=== PATIENT | male | born 1950 | race Caucasian/White ===

== ENCOUNTER 2017-07-12 10:04 | Outpatient (CLI) | payer MEDICARE, OTHER ==
[~2017-07-12] VITALS: Ht 180.3 cm; Wt 133.8 kg
[2017-07-12 10:19] VITALS: BP 160/83
[2017-07-12 10:57] LABS: BASOPHILS % (AUTO) 0 % (0-10); EOSINOPHILS # (AUTO) 0.2 10^3/uL (0.0-0.3); EOSINOPHILS % (AUTO) 2 % (0-10); HEMATOCRIT 38 % (40-54); HEMOGLOBIN 12.8 G/DL (13.3-17.7); LYMPHOCYTES # (AUTO) 8.5 X 10^3 (1.0-4.0); LYMPHOCYTES % (AUTO) 58 % (12-44); MEAN CORPUSCULAR HEMOGLOBIN 30 PG (25-34); MEAN CORPUSCULAR HGB CONC 34 G/DL (32-36); MEAN CORPUSCULAR VOLUME 89 FL (80-99); MEAN PLATELET VOLUME 10.9 FL (7.4-10.4); MONOCYTES # (AUTO) 0.9 X 10^3 (0.0-1.0); MONOCYTES % (AUTO) 6 % (0-12); NEUTROPHILS % (AUTO) 34 % (42-75); PLATELET COUNT 205 10^3/uL (130-400); RED BLOOD COUNT 4.26 10^6/uL (4.35-5.85); RED CELL DISTRIBUTION WIDTH 13.2 % (10.0-14.5); WHITE BLOOD COUNT 14.6 10^3/uL (4.3-11.0)
[2017-07-12 11:08] LABS: INR 0.9 (0.8-1.4); PROTHROMBIN TIME PATIENT 12.1 SEC (12.2-14.7)
[2017-07-12 11:16] LABS: ALANINE AMINOTRANSFERASE 19 U/L (0-55); ALBUMIN 4.2 GM/DL (3.2-4.5); ALKALINE PHOSPHATASE 89 U/L (40-136); BILIRUBIN,TOTAL 0.4 MG/DL (0.1-1.0); BUN/CREATININE RATIO 26; CALCIUM 9.2 MG/DL (8.5-10.1); CARBON DIOXIDE 24 MMOL/L (21-32); CHLORIDE 106 MMOL/L (98-107); CREATININE SERUM 0.89 MG/DL (0.60-1.30); GFR ESTIMATED > 60; GLUCOSE 114 MG/DL (70-105); POTASSIUM 4.3 MMOL/L (3.6-5.0); SODIUM 139 MMOL/L (135-145); TOTAL PROTEIN 6.5 GM/DL (6.4-8.2)
[2017-07-12 11:17] LABS: BILIRUBIN,URINE NEGATIVE (NEGATIVE); CLARITY,URINE CLEAR; COLOR,URINE YELLOW; GLUCOSE, URINE (UA) 1+ (NEGATIVE); KETONES,URINE NEGATIVE (NEGATIVE); LEUKOCYTE ESTERASE ,URINE NEGATIVE (NEGATIVE); NITRITE,URINE NEGATIVE (NEGATIVE); PH,URINE 6 (5-9); PROTEIN,URINE 2+ (NEGATIVE); UROBILINOGEN,URINE NORMAL (NORMAL)
[2017-07-12] MEDS ORDERED: METO50TA15 PO (11:25)
[2017-07-12] MEDS ORDERED: GLIM4TAB PO (11:25)
[2017-07-12] MEDS ORDERED: LISI1TAB8 PO (11:25)
[2017-07-12] MEDS ORDERED: AMLO5TAB2 PO (11:25)
[2017-07-12] MEDS ORDERED: INSU100I14 SQ (11:25)
[2017-07-12] MEDS ORDERED: INSU100I29 SQ (11:25)
[2017-07-12] MEDS ORDERED: ASPI-586 PO (11:25)
[2017-07-12] MEDS ORDERED: KRIL1CAP22 PO (11:25)
[2017-07-12] MEDS ORDERED: METF10002 PO (11:25)
[2017-07-12] MEDS ORDERED: LOVA20TA2 PO (11:25)
[2017-07-12 11:34] LABS: BACTERIA,URINE NEGATIVE /HPF; SQUAMOUS EPITHELIAL CELL,UR 0-2 /HPF
[2017-07-12 11:39] LABS: ERYTHROCYTE SEDIMENTATION RATE 10 MM/HR (0-30)
[2017-07-12 11:49] LABS: BAND NEUTROPHILS 3 %; BASOPHILS % (MANUAL) 0 %; EOSINOPHILS % (MANUAL) 1 %; LYMPHOCYTES % (MANUAL) 50 %; MONOCYTES % (MANUAL) 7 %; NEUTROPHILS % (MANUAL) 36 %; REACTIVE LYMPHOCYTES 3 %
[2017-07-12 11:50] LABS: RBC MORPH NORMAL
--- NOTE | 2017-07-12 12:41 | Diagnostic Imaging Report ---
EXAMINATION: PA and lateral chest obtained at 1123. INDICATION: Preop left knee arthroplasty. There are no prior studies available for comparison. Heart size is within normal limits. The lungs are clear. There is no evidence for failure, pneumonia or for a pleural effusion. The mediastinum is not widened. The osseous structures are intact. IMPRESSION: There is no evidence for active disease. Dictated by: Dictated on workstation # [id number]
== END 2017-07-12 11:10 | disposition home or self-care (01) ==
LOC: PREOP 10:04
PROVIDERS: ATTEND Orthopaedic Surgery
DX: Z01.810 Encounter for preprocedural cardiovascular examination (principal); Z01.811 Encounter for preprocedural respiratory examination; Z01.812 Encounter for preprocedural laboratory examination; Z11.2 Encounter for screening for other bacterial diseases; M17.12 Unilateral primary osteoarthritis, left knee; R53.83 Other fatigue
CPT/HCPCS: 36415; 71046; 80053; 81000; 85007; 85027; 85610; 85652; 86850; 86900; 86901; 87081; 93005

== ENCOUNTER 2017-07-19 06:00 | Inpatient (IN) | payer MEDICARE, OTHER ==
--- NOTE | 2017-07-10 16:55 | HISTORY AND PHYSICAL ---
DATE OF SERVICE: This will be for left total knee arthroplasty on 07/19/17. HISTORY: The patient is a 67-year-old gentleman with complaints of left knee pain and loss of function. Reports catching, locking and functional impairment in the knee. He reports this has been progressive in nature. He tried rest activity modifications and anti-inflammatories without relief. Due to functional impairment and failure to improve with conservative measures, the patient has elected to proceed with surgical intervention. REVIEW OF SYSTEMS: No chest pain, no shortness of breath. No dysuria. PAST MEDICAL HISTORY: Diabetes type 2, hyperlipidemia, hypertension. PAST SURGICAL HISTORY: Cataract excision, tonsillectomy. FAMILY HISTORY: Noncontributory. PRIMARY CARE PROVIDER: [facility]. MEDICATIONS: Aspirin, fish oil, Amaryl, lisinopril, NovoLog, metformin, lovastatin, amlodipine, metoprolol. ALLERGIES: Denies allergies. SOCIAL HISTORY: Denies tobacco use. Drinks alcohol rarely. RADIOGRAPHS: Reveal varus alignment with complete loss of medial and patellofemoral joint spaces. PHYSICAL EXAMINATION: GENERAL: The patient is a well-developed, well-nourished, in no acute distress. HEENT: Normocephalic, atraumatic. Pupils are equal, round and reactive to light. Oropharynx is clear. NECK: Supple, no lymphadenopathy. LUNGS: Clear to auscultation bilaterally. HEART: Regular rate and rhythm. ABDOMEN: Soft, nontender, nondistended. EXTREMITIES: The left knee demonstrates varus alignment. Range of motion 95, he has 1+ valgus. No varus laxity. Negative anterior and posterior drawer. 2+ pulses distally with brisk capillary refill. Sensation is intact throughout. No skin lesions are noted. He is tender along his medial femoral condyle. He has moderate effusion noted. IMPRESSION: Left knee severe osteoarthritis, unresponsive to conservative measures. PLAN: Left total knee arthroplasty. The risks, benefits, options, ramification and recovery have been discussed at length with the patient. He understands and wishes to proceed. See for inpatient admission on 07/19/17. The patient will require inpatient admission due to pain, instability, weakness and the need for pain management and physical therapy. Job ID: [id number] DocumentID: [id number] Dictated Date: 07/10/2017 15:51:11 Bar Captain Date: 07/10/2017 16:54:48 Dictated By: JARRETT CALLE MD
[~2017-07-19] VITALS: Ht 180.3 cm; Wt 133.8 kg
[~2017-07-19 06:00] MED LIST: AMLO5TAB2 PO; ASPI-586 PO; GLIM4TAB PO; INSU100I14 SQ; INSU100I29 SQ; KRIL1CAP22 PO; LISI1TAB8 PO; LOVA20TA2 PO; METF10002 PO; METO50TA15 PO
--- OUTSIDE RECORDS SUMMARY | 2017-07-19 06:14 | XMS REPORT ---
Author Author SHADIA BLAIR [facility] Address [address] [place] [address] Care Team Providers Care Senior Director Of Strategy Name Role Phone SHADIA BLAIR Unavailable PROBLEMS Type Condition ICD9-CM Code LQY69-CM Code Onset Dates Condition Status SNOMED Code Problem Type 2 diabetes mellitus with hyperglycemia E11.65 Active 201530200 Problem Diabetes type 2, controlled E11.9 Active 02208327 Assessment Diabetes type 2, controlled E11.9 Nov, Active 41461883 Problem 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 652173281 Problem Abrasion or friction burn of other, multiple, and unspecified sites, without mention of infection 919.0 Active 361799649 ALLERGIES Substance Reaction Event Type Date Status N.K.D.A. Unknown Non Drug Allergy Nov, Unknown SOCIAL HISTORY No smoking Hx information available PLAN OF CARE VITAL SIGNS Height 71 in 2015-11-20 Weight 286.8 lbs 2015-11-20 Heart Rate 80 bpm 2015-11-20 Respiratory Rate 20 2015-11-20 BMI 40.00 kg/m2 2015-11-20 Blood pressure systolic 164 mmHg 2015-11-20 Blood pressure diastolic 78 mmHg 2015-11-20 MEDICATIONS Medication Instructions Dosage Frequency Start Date End Date Duration Status Metformin HCl 1000 MG Orally Twice a day 1 tablet with meals 12h Dec, Active Fish Oil 1000 MG Orally Once a day 1 capsule 24h Active Aspirin 81 MG Orally Once a day 1 tablet 24h Active Amlodipine Besylate 5 mg Orally Once a day 1 tablet 24h July, Active Lovastatin 20MG 1 tablet 24h Active Lisinopril-Hydrochlorothiazide 20-12.5 TAKE TWO TABLETS BY MOUTH ONCE DAILY 90 Active Levemir FlexTouch 100 UNIT/ML Subcutaneous 2 times a day 60 units 12h 25 May, 2015 Active Metoprolol Tartrate 50MG TAKE ONE TABLET BY MOUTH TWICE DAILY WITH MEALS 30 Active Amaryl 4 MG Orally 2 times per day 1 tablet 90 Active RESULTS Name Result Date Reference Range A1C (IN HOUSE) 2015-11-20 A1C IN HOUSE 9.2 4.3 - 5.6 % Previous A1c 9.0 Lot [id number] Exp date 09/2017 PROCEDURES Procedure Date Ordered Related Diagnosis Body Site GLYCATED HEMOGLOBIN TEST Nov 20, 2015 Office Visit, Est Pt., Level 3 Nov 20, 2015 IMMUNIZATIONS No Known Immunizations
--- OUTSIDE RECORDS SUMMARY | 2017-07-19 06:14 | XMS REPORT ---
Author Author SHADIA BLAIR Organization [facility] [place] [facility] Address [address] [place] [address] Care Team Providers Care Hydrotherapist Name Role Phone SHADIA BLAIR Unavailable PROBLEMS Type Condition ICD9-CM Code DNU14-BR Code Onset Dates Condition Status SNOMED Code Problem Type 2 diabetes mellitus without complications E11.9 Active 547031433 Problem Controlled type 2 diabetes mellitus without complication, without long -term current use of insulin E11.9 Active 763730718 Problem Diabetes type 2, controlled E11.9 Active 76734328 Problem 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 092677471 Problem retirement current use of insulin Z79.4 Active 917804967 Problem Type 2 diabetes mellitus with hyperglycemia E11.65 Active 788527996 ALLERGIES No Information ENCOUNTERS Encounter Location Date Diagnosis [place] [address] [address] Jun, [place] [address] [address] May, [place] [address] [address] Feb, Other viral agents as the cause of diseases classified elsewhere B97.89 and Acute upper respiratory infection, unspecified J06.9 [facility] [place] [facility] [address] [place] [id number] [place] [address] Feb, [place] [address] [address] Feb, Type 2 diabetes mellitus without complications E11.9 and retirement current use of insulin Z79.4 [place] [address] [address] Dec, [place] [address] [address] [place] [address] Dec, [facility] [place] [facility] [address] [address] Nov, Type 2 diabetes mellitus without complications E11.9 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 [facility] [place] [facility] [address] [address] Nov, [facility] [place] [facility] [address] [place] [id number] [place] [address]- 69[address] Nov, Controlled type 2 diabetes mellitus without complication, without long-term current use of insulin E11.9 [facility] [place] [facility] [address] [place] [id number] [place] [address]- 8037 Nov, Controlled type 2 diabetes mellitus without complication, without long-term current use of insulin E11.9 [facility] [place] [facility] [address] [address] Nov, Type 2 diabetes mellitus with other circulatory complications E11.59 [facility] [place] [facility] [address] [address] Oct, Type 2 diabetes mellitus with hyperglycemia E11.65 [facility] [place] [facility] [address] [address] Oct, [facility] [place] [facility] [address] [address] Oct, [facility] [place] [facility] [address] [address] Oct, Type 2 diabetes mellitus without complications E11.9 [facility] [place] [facility] [address] [address] 58[address] Sep, Type 2 diabetes mellitus with hyperglycemia E11.65 [facility] [place] [facility] [address] [address] 12[address] Sep, Type 2 diabetes mellitus with other circulatory complications E11.59 [facility] [place] [facility] [address] [address] Aug, [facility] [place] [facility] [address] [address] July, Controlled type 2 diabetes mellitus without complication, without long-term current use of insulin E11.9 [facility] [place] [facility] [address] [address] 74[address] May, [facility] [place] [facility] [address] [place] [id number] [place] [address]- 7572 Feb, Controlled type 2 diabetes mellitus without complication, without long-term current use of insulin E11.9 [place] [address] [place] [id number] [place] [address]- 6531 Jan, Controlled type 2 diabetes mellitus without complication, without long-term current use of insulin E11.9 [place] [id number] [place] [address]- 1269 Jan, Type 2 diabetes mellitus with hyperglycemia E11.65 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 [place] [id number] [place] [address]- 1004 Nov, Diabetes type 2, controlled E11.9 [place] [address] [place] [id number] [place] [address]- 5607 Aug, Type 2 diabetes mellitus with other circulatory complications E11.59 and Hypertension, essential I10 [place] [id number] [place] [address]- 3145 July, Type 2 diabetes mellitus with hyperglycemia E11.65 and Hypertension, benign I10 [place] [id number] [place] [address]- 9157 May, Type 2 diabetes mellitus with other circulatory complications E11.59 [place] [id number] [place] [address]- 97[address] Apr, Diabetes type 2, controlled E11.9 [facility] [place] [facility] [address] [address] 5[address] Jan, Type 2 diabetes mellitus with other circulatory complications E11.59 [facility] [place] [facility] [address] Dec, Type 2 diabetes mellitus with other circulatory complications E11.59 [facility] [place] [facility] [address] [address] 75[address] Aug, Diabetes 250.00 [facility] [place] [facility] [address] [place] [id number] [place] [address]- 3[address] July, Diabetes 250.00 [facility] [place] [facility] [address] [facility] [id number] [place] [address]- 5667 Jun, [facility] [place] [facility] [address] [place] [id number] [place] [address] 256094- 4253 Jun, [facility] [place] [facility] [address] [place] [id number] [place] [address] 677086- 3881 Jun, [facility] [place] [facility] [address] [place] [id number] [place] [address]39[address]- 3894 Jun, [facility] [place] [facility] [address] [address]- 42[address] Jun, [facility] [place] [facility] [address] [address]- 8259 May, [facility] [place] [facility] [address] [address]- 0349 May, [facility] [place] [facility] [address] [address]- 2599 Apr, [facility] [place] [facility] [address] [address] Apr, [facility] [place] [facility] [address] [address]- 0[address] Mar, [facility] [place] [facility] [address] [address] [address] Mar, [facility] [place] [facility] [id number] [place] [address]- 5393 Feb, [facility] [place] [facility] [address] [id number] [place] [address]- 9046 Feb, [facility] [place] [facility] [address] [id number] [place] [address]- 4613 Feb, [facility] [place] [facility] [address] [id number] [place] [address]- 7542 Feb, [facility] [place] [facility] [address] [id number] [place] [address]- 4839 Feb, [facility] [place] [facility] [address] [id number] [place] [address]- 4256 Feb, [facility] [place] [facility] [address] [id number] [place] [address]- 8047 Dec, [facility] [place] [facility] [address] [id number] [place] [address]- 4882 Dec, [facility] [place] [facility] [address] [id number] [place] [address]- 0087 29 Nov, 2013 [facility] [place] [facility] [address] [id number] [place] [address]- 3823 29 Nov, 2013 [facility] [place] [facility] [address] [id number] [place] [address]- 3244 29 Nov, 2013 [facility] [place] [facility] [address] [id number] [place] [address]- 2874 29 Nov, 2013 [facility] [place] [facility] [address] [id number] [address]- 3418 17 Nov, 2013 [facility] [place] [facility] [address] [id number] [place] [address]- 0584 17 Nov, 2013 [facility] [place] [facility] [address] [id number] [place] [address]- 3813 12 Nov, 2013 [facility] [place] [facility] [address] [id number] [place] [address]- 7938 12 Nov, 2013 [facility] [place] [facility] [address] [id number] [place] [address]- 4485 Aug, [facility] [address] [id number] [place] [address]- 2305 Aug, [facility] [place] [facility] [address] [id number] [place] [address]- 9057 Aug, [facility] [address] [id number] [place] [address]- 0094 Aug, [facility] [place] [facility] [address] [id number] [place] [address]- 2450 July, [facility] [address] [id number] [place] [address]- 0672 July, [facility] [place] [facility] [address] [id number] [place] [address]- 5258 Jun, [facility] [place] [facility] [address] [id number] [place] [address]- 8642 Jun, [facility] [place] [facility] [address] [id number] [place] [address]- 6543 Jun, [facility] [place] [facility] [address] [id number] [place] [address]- 3588 Jun, [facility] [address] [id number] [place] [address]- 6805 May, [facility] [place] [facility] [address] [id number] [place] [address]- 1469 May, [facility] [place] [facility] [address] [id number] [place] [address]- 2642 Apr, [facility] [place] [facility] [address] [id number] [place] [address]- 4659 Apr, [facility] [place] [facility] [address] [id number] [place] [address]- 8704 Mar, [facility] [place] [facility] [address] [id number] [place] [address]- 8592 Mar, [facility] [place] [facility] [address] [id number] [place] [address]- 7537 Mar, [facility] [place] [facility] [address] [id number] [place] [address]- 5384 Mar, [facility] [place] [facility] [address] [id number] [place] [address]- 3014 Feb, [facility] [place] [facility] [address] [id number] [place] [address]- 8912 Feb, [facility] [place] [facility] [address] [id number] [place] [address]- 5177 Jan, [facility] [place] [facility] [address] [id number] [place] [address]- 2747 Jan, [facility] [place] [facility] [address] [id number] [place] [address]- 8669 Dec, [facility] [place] [facility] [address] [id number] [place] [address]- 5093 Dec, [facility] [place] [facility] [address] [id number] [place] [address]- 4693 Dec, [facility] [place] [facility] [address] [id number] [place] [address]- 3628 Dec, [facility] [place] [facility] [address] [id number] [place] [address]- 2750 Nov, [facility] [place] [facility] [address] [id number] [address]- 5147 Sep, [facility] [place] [facility] [address] [id number] [place] [address]- 8896 Sep, [facility] [place] [facility] [address] [id number] [place] [address]- 2786 Aug, [facility] [place] [facility] [address] [id number] [place] [address]- 4504 July, [facility] [place] [facility] [address] [id number] [place] [address]- 0069 24 Jun, 2012 [facility] [address] [id number] [place] [address]- 3000 May, [facility] [place] [facility] [address] [id number] [place] [address]- 8910 May, [facility] [place] [facility] [address] [id number] [place] [address]- 6973 May, [facility] [place] [facility] [address] [id number] [place] [address]- 2548 May, [facility] [place] [facility] [address] [id number] [place] [address], [place] [address]- 8568 May, [facility] [place] [facility] [address] [id number] [place] [address]- 0717 Feb, [facility] [address] [place] [address]- 8445 Feb, [facility] [place] [facility] [address] [id number] [place] [address]- 4431 Jan, [facility] [place] [facility] [address] [place] [id number] [place] [address]- 8892 Jan, [facility] [place] [facility] [address] [place] [id number] [place] [address]- 9796 Jan, [facility] [place] [facility] [address] [facility] [id number] [place] [address]- 4277 Jan, [facility] [place] [facility] [address] [facility] [id number] [address]- 6738 Jan, [facility] [place] [facility] [address] [id number] [place] [address]- 8491 Jan, [facility] [place] [facility] [address] [facility] [id number] [place] [address]- 1303 Dec, [facility] [place] [facility] [address] [facility] [id number] [address]66 Dec, [facility] [place] [facility] [address] [id number] [place] [address]- 8731 Dec, [facility] [place] [facility] [address] [id number] [place] [address]- 7097 Dec, [facility] [place] [facility] [address] [id number] [place] [address]- 9036 Dec, [facility] [place] [facility] [address] [id number] [place] [address]- 3216 26 Nov, 2011 [facility] [place] [facility] [address] [id number] [place] [address]- 4433 Nov, [facility] [place] [facility] [address] [id number] [place] [address]- 1834 Nov, [facility] [place] [facility] [address] [id number] [place] [address]- 9226 Sep, [facility] [place] [facility] [address] [id number] [place] [address]- 3389 Aug, [facility] [place] [facility] [address] [id number] [place] [address]- 1154 Aug, [facility] [place] [facility] [address] [id number] [place] [address]- 2190 May, [facility] [place] [facility] [address] [id number] [place] [address]- 3853 Apr, [facility] [place] [facility] [address] [id number] [place] [address]- 9684 Mar, [facility] [place] [facility] [address] [id number] [place] [address]- 6770 Mar, [facility] [place] [facility] [address] [id number] [place] [address]- 0575 Dec, [facility] [place] [facility] [address] [id number] [place] [address]- 8409 Sep, [facility] [place] [facility] [address] [id number] [place] [address]- 1495 2010 [facility] [place] [facility] [address] [facility] [id number] [address]- 1310 2010 [facility] [place] [facility] [address] [facility] [id number]- 9178 11 Jan, 2010 [facility] [place] [facility] [address] [address] 08 Jan, 2010 [facility] [place] [facility] [address] [facility] [id number]- 1427 10 Nov, 2009 [facility] [place] [facility] [address] [facility] [id number] [address]- 4148 15 Feb, 2009 [facility] [place] [facility] [id number] [place] [address] 80[address]- 7311 15 Feb, 2009 [facility] [place] [facility] [address] [address]- 2226 16 Jan, 2009 [facility] [place] [facility] [address] [address]- 8640 16 Jan, 2009 [facility] [place] [facility] [address] [address]- 7099 13 Dec, 2008 [facility] [place] [facility] [address] [address]- 6813 13 Dec, 2008 [facility] [place] [facility] [address] [address]- 1618 15 Nov, 2008 [facility] [place] [facility] [address] [place] [id number] [address]- 2321 17 Oct, 2008 [facility] [place] [facility] [address] [address]- 1988 Sep, [facility] [place] [facility] [address] [address]- [address] Aug, IMMUNIZATIONS No Known Immunizations SOCIAL HISTORY Never Assessed REASON FOR VISIT PALS PLAN OF CARE VITAL SIGNS MEDICATIONS Medication Instructions Dosage Frequency Start Date End Date Duration Status Tresiba FlexTouch 200 UNIT/ML Subcutaneous Once a day inject 75 units 24h Jan, 90 days Active Pen [place] 32G X 4 MM subcutaneously 4 times a day as directed with insulin 6h Sep, 90 days Active NovoLog Flexpen 100 UNIT/ML Subcutaneous 3 times a day with meals inject 25 units Sep, 90 days Active RESULTS No Results PROCEDURES No Known procedures INSTRUCTIONS MEDICATIONS ADMINISTERED No Known Medications MEDICAL (GENERAL) HISTORY Type Description Date Medical History hypertension Medical History type II diabetes Medical History hyperlipidemia Medical History chronic pain-knees Surgical History tonsillectomy 1957
--- OUTSIDE RECORDS SUMMARY | 2017-07-19 06:14 | XMS REPORT ---
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 738114430 Problem group home current use of insulin Z79.4 Active 591972565 Problem Type 2 diabetes mellitus with hyperglycemia E11.65 Active [id number] ALLERGIES No Information ENCOUNTERS Encounter Location Date Diagnosis [place] [address] [address] Jun, [place] [address] [address]- [address] May, [place] [address] [address] Feb, Other viral agents as the cause of diseases classified elsewhere B97.89 and Acute upper respiratory infection, unspecified J06.9 [facility] [address] [place] [id number] [place] [address]- 9212 Feb, [place] [address] [address]- [address] Feb, Type 2 diabetes mellitus without complications E11.9 and group home current use of insulin Z79.4 [place] [address] [address]- [address] Dec, [place] [address] [place] [address] Dec, [facility] [address] [address] Nov, Type 2 diabetes mellitus without complications E11.9 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 [facility] [address] [address] Nov, [facility] [address] [place] [id number] [place] [address] 85654- 7524 Nov, Controlled type 2 diabetes mellitus without complication, without long-term current use of insulin E11.9 [facility] [address] [place] [id number] [place] [address]68- 7638 Nov, Controlled type 2 diabetes mellitus without complication, without long-term current use of insulin E11.9 [facility] [address] [address] 7060 Nov, Type 2 diabetes mellitus with other circulatory complications E11.59 [facility] [address], [place] [address] 87[address] Oct, Type 2 diabetes mellitus with hyperglycemia E11.65 [facility] [address], [place] [address] 30[address] Oct, [facility] [address], [place] [address] 5[address] Oct, [facility] [address] [address] 1051 Oct, Type 2 diabetes mellitus without complications E11.9 [facility] [address] [address] 25[address] Sep, Type 2 diabetes mellitus with hyperglycemia E11.65 [facility] [address] [address] 4[address] Sep, Type 2 diabetes mellitus with other circulatory complications E11.59 [facility] [address], [place] [address] Aug, [facility] [address] [address] July, Controlled type 2 diabetes mellitus without complication, without long-term current use of insulin E11.9 [facility] [address], [place] [address]- 7698 May, [facility] [address] [place] [id number] [place] [address] 87848- 8196 Feb, Controlled type 2 diabetes mellitus without complication, without long-term current use of insulin E11.9 [place] [address] [place] [id number] [place] [address] 13569- 9136 Jan, Controlled type 2 diabetes mellitus without complication, without long-term current use of insulin E11.9 [place] [id number] [place] [address] 07266- 7509 Jan, Type 2 diabetes mellitus with hyperglycemia E11.65 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 [place] [id number] [place] [address] 95914- 8120 Nov, Diabetes type 2, controlled E11.9 [place] [address] [place] [id number] [place] [address] 22189- 6742 Aug, Type 2 diabetes mellitus with other circulatory complications E11.59 and Hypertension, essential I10 [place] [id number] [place] [address] 55974- 4854 July, Type 2 diabetes mellitus with hyperglycemia E11.65 and Hypertension, benign I10 [place] [id number] [place] [address] 04060- 4670 May, Type 2 diabetes mellitus with other circulatory complications E11.59 [place] [id number] [place] [address] 88046- 2035 Apr, Diabetes type 2, controlled E11.9 [facility] [address], [place] [address]- 17[address] Jan, Type 2 diabetes mellitus with other circulatory complications E11.59 [facility] [address] [address] Dec, Type 2 diabetes mellitus with other circulatory complications E11.59 [facility] [address], [place] [address]- 4046 Aug, Diabetes 250.00 [facility] [address] [place] [id number] [place] [address] 64086- 0366 July, Diabetes 250.00 [facility] [address] [facility] [id number] [place] [address] 85688- 7975 Jun, [facility] [address] [place] [id number] [place] [address] 072695- 5184 Jun, [facility] [address] [place] [id number] [place] [address] 539278- 6311 Jun, [facility] [address] [place] [id number] [place] [address] 02365- 0598 Jun, [facility] [address], [place] [address]- 8675 Jun, [facility] [address], [place] [address]- 2504 May, [facility] [address] [address]- 7050 May, [facility] [address], [place] [address]- 6756 Apr, [facility] [address] [address] Apr, [facility] [address], [place] [address]- 2705 Mar, [facility] [address] Mar, [facility] [address] [place] [address] 99264- 1109 Feb, [facility] [place] [facility] [address] [id number] [place] [address]- 7100 Feb, [facility] [place] [facility] [address] [id number] [place] [address]- 2522 Feb, [facility] [place] [facility] [address] [id number] [place] [address]- 1808 Feb, [facility] [place] [facility] [address] [id number] [place] [address]- 8115 Feb, [facility] [place] [facility] [address] [id number] [place] [address]- 5180 Feb, [facility] [place] [facility] [address] [id number] [place] [address]- 0309 Dec, [facility] [place] [facility] [address] [id number] [place] [address]- 5492 Dec, [facility] [place] [facility] [address] [id number] [place] [address]- 5061 29 Nov, 2013 [facility] [place] [facility] [address] [id number] [place] [address]- 4089 29 Nov, 2013 [facility] [place] [facility] [address] [id number] [place] [address]- 2241 29 Nov, 2013 [facility] [place] [facility] [address] [id number] [place] [address]- 5254 29 Nov, 2013 [facility] [place] [facility] [address] [id number], [place] [address]- 7921 17 Nov, 2013 [facility] [place] [facility] [address] [id number] [place] [address]- 6025 17 Nov, 2013 [facility] [place] [facility] [address] [id number] [place] [address]- 6016 12 Nov, 2013 [facility] [place] [facility] [address] [id number] [place] [address]- 7213 12 Nov, 2013 [facility] [place] [facility] [address] [id number] [place] [address]- 9226 Aug, [facility] [address] [id number] [place] [address]- 2315 Aug, [facility] [place] [facility] [address] [id number] [place] [address]- 4967 Aug, [facility] [address] [id number] [place] [address]- 0615 Aug, [facility] [place] [facility] [address] [id number] [place] [address]- 5036 July, [facility] [address] [id number] [place] [address]- 8917 July, [facility] [place] [facility] [address] [id number] [place] [address]- 7641 Jun, [facility] [place] [facility] [address] [id number] [place] [address]- 4024 Jun, [facility] [place] [facility] [address] [id number] [place] [address]- 2671 Jun, [facility] [place] [facility] [address] [id number] [place] [address]- 4230 Jun, [facility] [address] [id number] [place] [address]- 0524 May, [facility] [place] [facility] [address] [id number] [place] [address]- 0734 May, [facility] [place] [facility] [address] [id number] [place] [address]- 6489 Apr, [facility] [place] [facility] [address] [id number] [place] [address]- 8867 Apr, [facility] [place] [facility] [address] [id number] [place] [address]- 7113 Mar, [facility] [place] [facility] [address] [id number] [place] [address]- 8107 Mar, [facility] [place] [facility] [address] [id number] [place] [address]- 2007 Mar, [facility] [place] [facility] [address] [id number] [place] [address]- 5331 Mar, [facility] [place] [facility] [address] [id number] [place] [address]- 8708 Feb, [facility] [place] [facility] [address] [id number] [place] [address]- 1046 Feb, [facility] [place] [facility] [address] [id number] [place] [address]- 7861 Jan, [facility] [place] [facility] [address] [id number] [place] [address]- 8134 Jan, [facility] [place] [facility] [address] [id number] [place] [address]- 5684 Dec, [facility] [place] [facility] [address] [id number] [place] [address]- 1416 Dec, [facility] [place] [facility] [address] [id number] [place] [address]- 0745 Dec, [facility] [place] [facility] [address] [id number] [place] [address]- 3902 Dec, [facility] [place] [facility] [address] [id number] [place] [address]- 5621 Nov, [facility] [place] [facility] [address] [id number], [place] [address]- 3862 Sep, [facility] [place] [facility] [address] [id number] [place] [address]- 6364 Sep, [facility] [place] [facility] [address] [id number] [place] [address]- 3626 Aug, [facility] [place] [facility] [address] [id number] [place] [address]- 7575 July, [facility] [place] [facility] [address] [id number] [place] [address]- 2840 24 Jun, 2012 [facility] [address] [id number] [place] [address]- 9227 May, [facility] [place] [facility] [address] [id number] [place] [address]- 9156 May, [facility] [place] [facility] [address] [id number] [place] [address]- 7563 May, [facility] [place] [facility] [address] [id number] [place] [address]- 1187 May, [facility] [place] [facility] [id number] [place] [address], [place] [address]- 7619 May, [facility] [place] [facility] [address] [id number] [place] [address]- 7632 Feb, [facility] [address] [place] [address]- 1634 Feb, [facility] [place] [facility] [address] [id number] [place] [address]- 0268 Jan, [facility] [place] [facility] [address] [place] [id number] [place] [address]- 7830 Jan, [facility] [place] [facility] [address] [place] [id number] [place] [address]- 1588 Jan, [facility] [place] [facility] [address] [facility] [id number] [place] [address]- 1850 Jan, [facility] [place] [facility] [address] [facility] [id number], [place] [address]- 6594 Jan, [facility] [place] [facility] [address] [id number] [place] [address]- 4141 Jan, [facility] [place] [facility] [address] [facility] [id number] [place] [address]- 5006 Dec, [facility] [place] [facility] [address] [facility] [id number] 6228 Dec, [facility] [place] [facility] [address] [id number] [place] [address]- 5604 Dec, [facility] [place] [facility] [address] [id number] [place] [address]- 0650 Dec, [facility] [place] [facility] [address] [id number] [place] [address]- 1366 Dec, [facility] [place] [facility] [address] [id number] [place] [address]- 6357 26 Nov, 2011 [facility] [place] [facility] [address] [id number] [place] [address]- 0308 Nov, [facility] [place] [facility] [address] [id number] [place] [address]- 6179 Nov, [facility] [place] [facility] [address] [id number] [place] [address]- 8662 Sep, [facility] [place] [facility] [address] [id number] [place] [address]- 6919 Aug, [facility] [place] [facility] [address] [id number] [place] [address]- 8554 Aug, [facility] [place] [facility] [address] [id number] [place] [address]- 0944 May, [facility] [place] [facility] [address] [id number] [place] [address]- 6214 Apr, [facility] [place] [facility] [address] [id number] [place] [address]- 7076 Mar, [facility] [place] [facility] [address] [id number] [place] [address]- 1407 Mar, [facility] [place] [facility] [address] [id number] [place] [address]- 3658 Dec, [facility] [place] [facility] [address] [id number] [place] [address]- 7556 Sep, [facility] [place] [facility] [address] [id number] [place] [address]- 9195 2010 [facility] [address] [facility] [id number], [place] [address]- 0581 2010 [facility] [address] [facility] [id number] 5616 11 Jan, 2010 [facility] [address] [address] 08 Jan, 2010 [facility] [address] [facility] [id number] 8951 10 Nov, 2009 [facility] [address] [facility] [id number], [place] [address]- 6216 15 Feb, 2009 [facility] [address], [place] [address]- 0209 15 Feb, 2009 [facility] [address], [place] [address]- 0413 16 Jan, 2009 [facility] [address], [place] [address]- 3573 16 Jan, 2009 [facility] [address], [place] [address]- 0719 13 Dec, 2008 [facility] [address], [place] [address]- 1872 13 Dec, 2008 [facility] [address], [place] [address]- 7832 15 Nov, 2008 [facility] [address] [place] [id number], [place] [address]- 7481 17 Oct, 2008 [facility] [address] [address] Sep, [facility] [address]- 6903 Aug, IMMUNIZATIONS No Known Immunizations SOCIAL HISTORY Never Assessed REASON FOR VISIT Sample Request PLAN OF CARE VITAL SIGNS MEDICATIONS Medication Instructions Dosage Frequency Start Date End Date Duration Status Tresiba FlexTouch 200 UNIT/ML Subcutaneous Once a day inject 75 units 24h Jan, 30 days Active NovoLog Flexpen 100 UNIT/ML Subcutaneous 3 times a day with meals inject 25 units Sep, 30 days Active RESULTS No Results PROCEDURES No Known procedures INSTRUCTIONS MEDICATIONS ADMINISTERED No Known Medications MEDICAL (GENERAL) HISTORY Type Description Date Medical History hypertension Medical History type II diabetes Medical History hyperlipidemia Medical History chronic pain-knees Surgical History tonsillectomy 1957
--- OUTSIDE RECORDS SUMMARY | 2017-07-19 06:15 | XMS REPORT ---
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 239893039 Problem Other chronic pain G89.29 Active 42805736 Problem Type 2 diabetes mellitus without complications E11.9 Active 901192231 Problem Type 2 diabetes mellitus with hyperglycemia E11.65 Active 146422223 Problem Diabetes type 2, controlled E11.9 Active 87720493 Problem Controlled type 2 diabetes mellitus without complication, without long -term current use of insulin E11.9 Active 511222325 Problem [facility] current use of insulin Z79.4 Active [id number] ALLERGIES No Known Allergies ENCOUNTERS Encounter Location Date Diagnosis [place] [address] [address] Jun, Diabetes type 2, controlled E11.9 ; Other chronic pain G89.29 ; Pain in left knee M25.562 and Pain in right knee M25.561 [place] [address] [place] [address]403- 6358 May, [place] [address] [place] [id number] [place] [address]78- 4684 Feb, Other viral agents as the cause of diseases classified elsewhere B97.89 and Acute upper respiratory infection, unspecified J06.9 [place] [address] [place] [id number] [place] [address] 42787- 9510 Feb, [place] [address] [place] [id number] [place] [address] 07264- 4867 Feb, 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 2 diabetes mellitus 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 complications E11.9 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 [facility] [address] [address] Dec, [facility] [address] [place] [id number] [place] [address] 26074- 3916 Dec, [facility] [address] [place] [address] 82724- 8622 Nov, Type 2 diabetes mellitus without complications E11.9 and [facility] current use of insulin Z79.4 [facility] [address] [place] [address] 23576- 7714 Nov, [facility] [address] [place] [id number] [place] [address] 89717- 9960 Nov, Controlled type 2 diabetes mellitus without complication, without long-term current use of insulin E11.9 [facility] [address] [place] [address] 53358- 6712 Nov, Controlled type 2 diabetes mellitus without complication, without long-term current use of insulin E11.9 [facility] [address] [place] [address] 49802- 1868 Nov, Type 2 diabetes mellitus with other circulatory complications E11.59 [facility] [address], [place] [address] 3940 Oct, Type 2 diabetes mellitus with hyperglycemia E11.65 [facility] [address], [place] [address] 8[address] Oct, [facility] [address] [address] 5783 Oct, [facility] [address] [place] [address] 67180- 2202 Oct, Type 2 diabetes mellitus without complications E11.9 [facility] [address], [place] [address] 05[address] Sep, Type 2 diabetes mellitus with hyperglycemia E11.65 [facility] [address] [place] [address] 32004- 3039 Sep, Type 2 diabetes mellitus with other circulatory complications E11.59 [place] [address] [place] [id number] [place] [address] 84168- 5733 Aug, [place] [address] [place] [id number] [place] [address] 24843- 5138 July, Controlled type 2 diabetes mellitus without complication, without long-term current use of insulin E11.9 [place] [address] [place] [id number] [place] [address] 09142- 7879 May, [place] [address] [place] [id number] [place] [address] 64571- 0415 Feb, Controlled type 2 diabetes mellitus without complication, without long-term current use of insulin E11.9 [place] [address] [place] [id number] [place] [address] 11920- 8151 Jan, Controlled type 2 diabetes mellitus without complication, without long-term current use of insulin E11.9 [place] [address] [place] [address] 13563- 7978 Jan, Type 2 diabetes mellitus with hyperglycemia E11.65 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 [place] [address] [place] [address] 65168- 5197 Nov, Diabetes type 2, controlled E11.9 [place] [address] [place] [address] 20732- 6798 Aug, Type 2 diabetes mellitus with other circulatory complications E11.59 and Hypertension, essential I10 [place] [address] [place] [address] 56616- 0477 July, Type 2 diabetes mellitus with hyperglycemia E11.65 and Hypertension, benign I10 [place] [address] [place] [address] 06161- 3907 May, Type 2 diabetes mellitus with other circulatory complications E11.59 [place] [address] [place] [id number] [place] [address] 75724- 6216 Apr, Diabetes type 2, controlled E11.9 [facility] [address], [place] [address] 7920 Jan, Type 2 diabetes mellitus with other circulatory complications E11.59 [facility] [address], [place] [address]- 3186 Dec, Type 2 diabetes mellitus with other circulatory complications E11.59 [facility] [address] [place] [id number] [place] [address] 32350- 5691 Aug, Diabetes 250.00 [facility] [address] [place] [address] 70902- 5102 July, Diabetes 250.00 [facility] [address] [place] [id number] [place] [address] 79567- 1226 Jun, [facility] [address] [place] [id number] [place] [address] 84843- 8831 Jun, [facility] [address] [place] [id number] [address] 4028 Jun, [facility] [address] [place] [address] 09773- 1564 Jun, [facility] [address], [place] [address]- 7849 Jun, [facility] [address] [place] [address]- 2433 May, [facility] [address] [place] [address]- 5592 May, [facility] [address], [place] [address]- 6353 Apr, [facility] [address] [place] [address]- 6676 Apr, [facility] [address], [place] [address]- 9386 Mar, [facility] [place] [facility] [address] [id number] [place] [address]- 3729 16 Mar, 2014 [facility] [place] [facility] [address] [id number] [place] [address]- 0329 29 Feb, 2014 [facility] [place] [facility] [address] [id number] [place] [address]- 6506 Feb, [facility] [place] [facility] [address] [id number] [place] [address]- 3058 Feb, [facility] [place] [facility] [address] [id number] [place] [address]- 1786 Feb, [facility] [place] [facility] [address] [id number] [place] [address]- 9111 15 Feb, 2014 [facility] [place] [facility] [address] [id number] [place] [address]- 5021 Feb, [facility] [place] [facility] [address] [id number] [place] [address]- 3321 Dec, [facility] [place] [facility] [address] [id number] [place] [address]- 0284 13 Dec, 2013 [facility] [place] [facility] [address] [id number] [place] [address]- 1798 29 Nov, 2013 [facility] [place] [facility] [address] [id number] [place] [address]- 3265 29 Nov, 2013 [facility] [place] [facility] [address] [id number] [place] [address]- 2542 29 Sep, 2013 [facility] [place] [facility] [address] [id number] [place] [address] 2544 29 Sep, 2013 [facility] [place] [facility] [address] [id number] [place] [address] 2546 17 Sep, 2013 [facility] [place] [facility] [address] [id number] [place] [address]- 2546 17 Sep, 2013 [facility] [place] [facility] [address] [id number] [place] [address]- 1540 Nov, [facility] [place] [facility] [address] [id number] [place] [address]- 1927 Nov, [facility] [place] [facility] [address] [id number] [place] [address]- 2857 Aug, [facility] [place] [facility] [address] [id number] [place] [address]- 3569 Aug, [facility] [place] [facility] [address] [id number] [place] [address]- 4824 Aug, [facility] [place] [facility] [address] [id number] [place] [address]- 8882 Aug, [facility] [place] [facility] [address] [id number] [place] [address]- 3890 July, [facility] [place] [facility] [address] [id number] [place] [address]- 4914 July, [facility] [place] [facility] [address] [id number] [place] [address]- 3654 Jun, [facility] [place] [facility] [address] [id number] [place] [address]- 5581 Jun, [facility] [place] [facility] [address] [id number] [place] [address]- 5363 Jun, [facility] [place] [facility] [address] [id number], [place] [address]- 9907 Jun, [facility] [place] [facility] [address] [id number], [place] [address]- 6438 May, [facility] [place] [facility] [address] [id number] [place] [address]- 1830 May, [facility] [place] [facility] [address] [id number] [place] [address]- 9973 Apr, [facility] [place] [facility] [address] [id number] [place] [address]- 9668 Apr, [facility] [place] [facility] [address] [id number] [place] [address]- 7298 Mar, [facility] [address] [id number] [place] [address]- 3382 Mar, [facility] [address] [id number] [place] [address]- 1083 Mar, [facility] [address] [id number] [place] [address]- 1690 Mar, [facility] [address] [id number] [place] [address]- 9621 Feb, [facility] [address] [id number] [place] [address]- 9208 Feb, [facility] [address] [id number] [place] [address]- 8976 Jan, [facility] [address] [id number] [place] [address]- 2570 Jan, [facility] [address] [id number] [place] [address]- 8990 Dec, [facility] [address] [id number] [place] [address]- 3674 Dec, [facility] [address] [id number] [place] [address]- 2668 Dec, [facility] [address] [id number] [place] [address]- 2963 Dec, [facility] [address] [id number] [place] [address]- 7932 Nov, [facility] [place] [facility] [address] [id number] [place] [address]- 6596 Sep, [facility] [place] [facility] [address] [id number] [place] [address]- 2546 Sep, [facility] [address] [id number] [place] [address]- 6129 Aug, [facility] [place] [facility] [address] [id number] [place] [address]- 7775 July, [facility] [place] [facility] [address] [id number] [place] [address]- 8384 Jun, [facility] [place] [facility] [address] [id number] [place] [address]954 May, [facility] [place] [facility] [address] [id number] [place] [address]- 0726 May, [facility] [address] [id number] [place] [address]- 2394 May, [facility] [place] [facility] [address] [id number] [place] [address]- 7867 May, [facility] [address] [id number] [place] [address]- 1821 May, [facility] [address] [id number] [place] [address]- 6026 Feb, [facility] [place] [facility] [address] [id number] [place] [address]- 7076 Feb, [facility] [place] [facility] [address] [id number] [place] [address]- 9161 Jan, [facility] [place] [facility] [address] [id number] [place] [address]- 3541 Jan, [facility] [place] [facility] [address] [id number], [place] [address]- 6574 Jan, [facility] [place] [facility] [address] [id number] [place] [address]- 6415 Jan, [facility] [place] [facility] [address] [id number] [place] 1898 Jan, [facility] [place] [facility] [address] [id number] [place] 7542 Jan, [facility] [place] [facility] [address] [id number], [place] [address]- 8570 18 Dec, 2011 [facility] [place] [facility] [address] [id number] [place] [address]- 0198 18 Dec, 2011 [facility] [place] [facility] [address] [id number] [place] [address]- 9974 18 Dec, 2011 [facility] [place] [facility] [address] [facility] [id number] [place] [address]- 1619 18 Dec, 2011 [facility] [place] [facility] [address] [id number] [place] [address]- 7231 10 Dec, 2011 [facility] [place] [facility] [address] [id number] [place] [address]- 3366 26 Nov, 2011 [facility] [place] [facility] [address] [facility] [id number] [place] [address]- 2850 18 Nov, 2011 [facility] [place] [facility] [address] [facility] [id number] [place] [address]- 5693 13 Nov, 2011 [facility] [place] [facility] [address] [facility] [id number] [place] [address]- 9725 Sep, [facility] [place] [facility] [address] [facility] [id number] [place] [address]- 4198 Aug, [facility] [place] [facility] [address] [facility] [id number] [place] [address]- 6773 Aug, [facility] [place] [facility] [address] [facility] [id number], [place] [address]- 9399 May, [facility] [place] [facility] [address] [facility] [id number], [place] [address]- 9316 Apr, [facility] [place] [facility] [address] [id number] [place] [address]- 4053 Mar, [facility] [place] [facility] [address] [facility] [id number] [place] [address]- 8290 Mar, [facility] [place] [facility] [address] [facility] [id number] [place] [address]- 9279 Dec, [facility] [place] [facility] [address] [id number] [place] [address]- 8282 11 Sep, 2010 [facility] [place] [facility] [address] [id number] [place] [address]- 1642 2010 [facility] [place] [facility] [address] [id number] [place] 4726 2010 [facility] [place] [facility] [address] [id number] [place] [address]- 3875 11 Jan, 2010 [facility] [place] [facility] [address] [id number] [place] [address]- 0503 08 Jan, 2010 [facility] [place] [facility] [address] [id number] [place] [address]- 8859 10 Nov, 2009 [facility] [place] [facility] [address] [id number] [place] [address]- 6056 15 Feb, 2009 [facility] [place] [facility] [address] [id number] [place] [address]- 8547 15 Feb, 2009 [facility] [place] [facility] [address] [id number] [place] [address]- 4808 16 Jan, 2009 [facility] [place] [facility] [address] [id number] [place] [address]- 7924 16 Jan, 2009 [facility] [place] [facility] [address] [facility] [id number] [place] [address]- 6909 13 Dec, 2008 [facility] [place] [facility] [address] [id number] [place] [address]- 4115 13 Dec, 2008 [facility] [place] [facility] [address] [id number] [place] [address] 2544 15 Nov, 2008 [facility] [place] [facility] [address] [id number] [place] [address]- 8714 17 Oct, 2008 [facility] [place] [facility] [address] [id number] [place] [address]- 5466 13 Sep, 2008 [facility] [place] [facility] [address] [id number] [place] [address]- 4422 Aug, IMMUNIZATIONS No Known Immunizations SOCIAL HISTORY Never Assessed REASON FOR VISIT Diabetes, with no other concerns- Ricardo MCKINLEY PLAN OF CARE Activity Details Follow Up 2 Months Reason:dm2 3 mo. checkup VITAL SIGNS Height 71 in 2016-12-01 Weight 301 lbs 2016-12-01 Temperature 98.1 degrees Fahrenheit 2016-12-01 Heart Rate 84 bpm 2016-12-01 Respiratory Rate 18 2016-12-01 BMI 41.98 kg/m2 2016-12-01 Blood pressure systolic 172 mmHg 2016-12-01 Blood pressure diastolic 82 mmHg 2016-12-01 MEDICATIONS Medication Instructions Dosage Frequency Start Date End Date Duration Status NovoLog Flexpen 100 UNIT/ML Subcutaneous before meals inject 25 units Sep, Active Glimepiride 4MG TAKE ONE TABLET BY MOUTH TWICE DAILY 90 Active Levemir FlexTouch 100 UNIT/ML DX E11.59 2 times a day 40 units 12h Oct, Active Pen Roslyn 32G X 4 MM subcutaneously 4 times a day as directed with insulin 6h Sep, 90 days Active Lovastatin 20 mg 1 tablet with a meal 24h 90 Active Amlodipine Besylate 5 mg Orally Once a day 1 tablet 24h 13 Jul, 2015 Active Metoprolol Tartrate 50MG TAKE ONE TABLET BY MOUTH TWICE DAILY WITH MEALS 90 Active Aspirin 81 MG Orally Once a day 1 tablet 24h Active Fish Oil 1000 MG Orally Once a day 1 capsule 24h Active Metformin HCl 1000 MG Orally Twice a day 1 tablet with meals 12h Dec, Active Amaryl 4 MG Orally 2 times per day 1 tablet 90 Active Lisinopril-Hydrochlorothiazide 20-12.5MG TAKE TWO TABLETS BY MOUTH ONCE DAILY 90 Active RESULTS No Results PROCEDURES No Known procedures INSTRUCTIONS MEDICATIONS ADMINISTERED No Known Medications MEDICAL (GENERAL) HISTORY Type Description Date Medical History hypertension Medical History type II diabetes Medical History hyperlipidemia Medical History chronic pain-knees Surgical History tonsillectomy 1957 Surgical History carderacs removed from both eyes 2017
--- OUTSIDE RECORDS SUMMARY | 2017-07-19 06:15 | XMS REPORT ---
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 045546645 Problem Other chronic pain G89.29 Active 57712229 Problem Type 2 diabetes mellitus without complications E11.9 Active 555028487 Problem Type 2 diabetes mellitus with hyperglycemia E11.65 Active 708059722 Problem Diabetes type 2, controlled E11.9 Active 57884524 Problem Controlled type 2 diabetes mellitus without complication, without long -term current use of insulin E11.9 Active 269800489 Problem halfway current use of insulin Z79.4 Active [id number] ALLERGIES No Information ENCOUNTERS Encounter Location Date Diagnosis [place] [address] [address] Jun, Diabetes type 2, controlled E11.9 ; Other chronic pain G89.29 ; Pain in left knee M25.562 and Pain in right knee M25.561 [place] [address] [place] [id number] [place] [address] May, [place] [address] [address] Feb, Other viral agents as the cause of diseases classified elsewhere B97.89 and Acute upper respiratory infection, unspecified J06.9 [place] [address] [address] Feb, [place] [address] [place] [id number] [place] [address]- 6531 Feb, Type 2 diabetes mellitus without complications E11.9 and halfway current use of insulin Z79.4 [facility] [address] [address] Dec, [facility] [address] [place] [id number] [place] [address]356- 9456 Dec, [facility] [id number] [place] [address]50- 7404 Nov, Type 2 diabetes mellitus without complications E11.9 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 [facility] [address] [place] [id number] [place] [address]69- 1817 Nov, [facility] [address] [place] [id number] [place] [address] 97093- 8251 Nov, Controlled type 2 diabetes mellitus without complication, without long-term current use of insulin E11.9 [facility] [id number] [place] [address] 84572- 9841 Nov, Controlled type 2 diabetes mellitus without complication, without long-term current use of insulin E11.9 [facility] [id number] [place] [address] 84276- 5753 Nov, Type 2 diabetes mellitus with other circulatory complications E11.59 [facility] [id number] [place] [address] 21471- 8422 Oct, Type 2 diabetes mellitus with hyperglycemia E11.65 [facility] [id number] [place] [address] 08019- 1793 Oct, [facility] [address] [address] Oct, [facility] [id number] [place] [address] 60607- 8537 Oct, Type 2 diabetes mellitus without complications E11.9 [facility] [address] [address] 9263 Sep, Type 2 diabetes mellitus with hyperglycemia E11.65 [facility] [address] [place] [id number] [place] [address] 33915- 2073 Sep, Type 2 diabetes mellitus with other circulatory complications E11.59 [place] [address] [place] [id number] [place] [address] 42052- 1700 Aug, [place] [address] [place] [id number] [place] [address] 324293- 8216 July, Controlled type 2 diabetes mellitus without complication, without long-term current use of insulin E11.9 [place] [address] [place] [id number] [place] [address] 00597- 2485 May, [place] [address] [place] [id number] [place] [address] 40247- 3445 Feb, Controlled type 2 diabetes mellitus without complication, without long-term current use of insulin E11.9 [place] [address] [place] [id number] [place] [address] 39391- 1605 Jan, Controlled type 2 diabetes mellitus without complication, without long-term current use of insulin E11.9 [place] [id number] [place] [address] 24146- 9379 Jan, Type 2 diabetes mellitus with hyperglycemia E11.65 and halfway current use of insulin Z79.4 [place] [id number] [place] [address] 17607- 4504 Nov, Diabetes type 2, controlled E11.9 [place] [id number] [place] [address] 64857- 4492 Aug, Type 2 diabetes mellitus with other circulatory complications E11.59 and Hypertension, essential I10 [place] [id number] [place] [address] 59005- 3810 July, Type 2 diabetes mellitus with hyperglycemia E11.65 and Hypertension, benign I10 [place] [id number] [place] [address] 42225- 7733 May, Type 2 diabetes mellitus with other circulatory complications E11.59 [place] [address] [place] [id number] [place] [address] 57366- 2578 Apr, Diabetes type 2, controlled E11.9 [facility] [address] [address]- 1452 Jan, Type 2 diabetes mellitus with other circulatory complications E11.59 [facility] [address] [address]- 0816 Dec, Type 2 diabetes mellitus with other circulatory complications E11.59 [facility] [id number] [place] [address] 02913- 0506 Aug, Diabetes 250.00 [facility] [id number] [place] [address] 84393- 6297 July, Diabetes 250.00 [facility] [address] [place] [id number] [place] [address] 046806- 7668 Jun, [facility] [id number] [place] [address] 294135- 7551 Jun, [facility] [address] [address]- 5305 Jun, [facility] [address] [address]- 8367 Jun, [facility] [address] [address]- 2977 Jun, [facility] [address] [address]- 2772 May, [facility] [address] [address]- 0760 May, [facility] [address] [address]- 0558 Apr, [facility] [address] [address]- 7461 Apr, [facility] [address] [address]- 9306 Mar, [facility] [place] [facility] [address] [id number] [place] [address]- 1868 16 Mar, 2014 [facility] [place] [facility] [address] [id number] [place] [address]- 9197 29 Feb, 2014 [facility] [place] [facility] [address] [id number] [place] [address]- 1206 Feb, [facility] [place] [facility] [address] [id number] [place] [address]- 6466 Feb, [facility] [place] [facility] [address] [id number] [place] [address]- 1862 Feb, [facility] [place] [facility] [address] [id number] [place] [address]- 6271 15 Feb, 2014 [facility] [place] [facility] [address] [id number] [place] [address]- 2621 15 Feb, 2014 [facility] [place] [facility] [address] [id number] [place] [address]- 5388 Dec, [facility] [place] [facility] [address] [id number] [place] [address]- 1631 13 Dec, 2013 [facility] [place] [facility] [address] [id number] [place] [address]- 1892 29 Nov, 2013 [facility] [place] [facility] [address] [id number] [place] [address]- 0458 29 Nov, 2013 [facility] [place] [facility] [address] [id number] [place] [address]- 2541 29 Sep, 2013 [facility] [place] [facility] [address] [id number] [place] [address] 2543 29 Sep, 2013 [facility] [place] [facility] [address] [id number] [place] [address]- 2546 17 Nov, 2013 [facility] [place] [facility] [address] [id number] [place] [address]- 2546 17 Nov, 2013 [facility] [place] [facility] [address] [id number] [place] [address]- 2787 Nov, [facility] [place] [facility] [address] [id number] [place] [address]- 8041 Nov, [facility] [place] [facility] [address] [id number] [place] [address]- 2085 Aug, [facility] [place] [facility] [address] [id number] [place] [address]- 0250 Aug, [facility] [place] [facility] [address] [id number] [place] [address]- 6778 Aug, [facility] [place] [facility] [address] [id number] [place] [address]- 0718 Aug, [facility] [place] [facility] [address] [id number] [place] [address]- 5373 July, [facility] [place] [facility] [address] [id number] [place] [address]- 7676 July, [facility] [place] [facility] [address] [id number] [place] [address]- 8190 Jun, [facility] [place] [facility] [address] [id number] [place] [address]- 0631 Jun, [facility] [place] [facility] [address] [id number] [place] [address]- 4314 Jun, [facility] [place] [facility] [address] [id number] [place] [address]- 3013 Jun, [facility] [place] [facility] [address] [id number] [address]- 3222 May, [facility] [place] [facility] [address] [id number] [place] [address]- 4489 May, [facility] [place] [facility] [address] [id number] [place] [address]- 7907 Apr, [facility] [place] [facility] [address] [id number] [place] [address]- 2930 Apr, [facility] [place] [facility] [address] [id number] [place] [address]- 1507 Mar, [facility] [address] [id number] [place] [address]- 0382 Mar, [facility] [place] [facility] [address] [id number] [place] [address]- 8314 Mar, [facility] [address] [id number] [place] [address]- 5051 Mar, [facility] [place] [facility] [address] [id number] [place] [address]- 5905 Feb, [facility] [place] [facility] [address] [id number] [place] [address]- 5172 Feb, [facility] [place] [facility] [address] [id number] [place] [address]- 5868 Jan, [facility] [address] [id number] [place] [address]- 7330 Jan, [facility] [place] [facility] [address] [id number] [place] [address]- 3021 Dec, [facility] [place] [facility] [address] [id number] [place] [address]- 0298 Dec, [facility] [place] [facility] [address] [id number] [place] [address]- 4165 Dec, [facility] [place] [facility] [address] [id number] [place] [address]- 0416 Dec, [facility] [place] [facility] [address] [id number] [place] [address]- 3964 Nov, [facility] [place] [facility] [address] [id number] [place] [address]- 9602 Sep, [facility] [place] [facility] [address] [id number] [place] [address]- 2546 Sep, [facility] [place] [facility] [address] [id number] [place] [address]- 1250 Aug, [facility] [place] [facility] [address] [id number] [place] [address]- 4069 July, [facility] [address] [id number] [place] [address]- 2035 Jun, [facility] [address] [id number] [place] 9770 May, [facility] [address] [id number] [place] [address]- 9531 May, [facility] [address] [id number] [place] [address]- 6573 May, [facility] [address] [id number] [place] [address]- 1871 May, [facility] [address] [id number] [place] [address]- 3845 May, [facility] [address] [id number] [place] [address]- 7234 Feb, [facility] [address] [id number] [place] [address]- 0220 Feb, [facility] [address] [id number] [place] [address]- 0310 Jan, [facility] [address] [id number] [place] [address]- 3755 Jan, [facility] [address] [id number] [place] [address]- 5236 Jan, [facility] [place] [facility] [address] [id number] [place] [address]- 9251 Jan, [facility] [place] [facility] [address] [id number] [place] [address]- 7302 Jan, [facility] [place] [facility] [address] [id number] [place] 2299 Jan, [facility] [place] [facility] [address] [id number] [place] [address]- 1404 Dec, [facility] [place] [facility] [address] [id number] [place] [address]- 7034 18 Dec, 2011 [facility] [place] [facility] [address] [id number] [place] [address]- 0976 18 Dec, 2011 [facility] [place] [facility] [address] [id number] [place] [address]- 1484 18 Dec, 2011 [facility] [place] [facility] [address] [id number] [place] [address]- 0035 10 Dec, 2011 [facility] [place] [facility] [address] [id number] [place] [address]- 9658 26 Nov, 2011 [facility] [place] [facility] [address] [id number] [place] [address]- 0162 18 Nov, 2011 [facility] [place] [facility] [address] [id number] [place] [address]- 7867 13 Nov, 2011 [facility] [place] [facility] [address] [id number] [place] [address]- 8473 Sep, [facility] [place] [facility] [address] [id number] [place] [address]- 3892 Aug, [facility] [place] [facility] [address] [id number] [place] [address]- 4320 Aug, [facility] [place] [facility] [address] [id number] [place] [address]- 5441 May, [facility] [place] [facility] [address] [id number] [place] [address]- 9644 Apr, [facility] [place] [facility] [address] [id number] [place] [address]- 3520 Mar, [facility] [place] [facility] [address] [id number] [place] [address]- 4242 Mar, [facility] [place] [facility] [address] [id number] [place] [address]- 3241 Dec, [facility] [place] [facility] [address] [id number] [place] [address]- 6249 11 Sep, 2010 [facility] [address] [id number] [place] [address]- 2613 2010 [facility] [place] [facility] [address] [id number] [place] [address]86 2010 [facility] [address] [id number] [place] [address]- 6368 11 Jan, 2010 [facility] [place] [facility] [address] [id number] [place] [address]- 3807 08 Jan, 2010 [facility] [address] [id number] [place] [address]- 6741 10 Nov, 2009 [facility] [place] [facility] [address] [id number] [place] [address]- 9256 15 Feb, 2009 [facility] [place] [facility] [address] [id number] [place] [address]- 6847 15 Feb, 2009 [facility] [address] [id number] [place] [address]- 9618 16 Jan, 2009 [facility] [place] [facility] [address] [id number] [place] [address]- 1697 16 Jan, 2009 [facility] [address] [id number] [place] [address]- 6240 13 Dec, 2008 [facility] [place] [facility] [address] [id number] [place] [address]- 2992 13 Dec, 2008 [facility] [place] [facility] [address] [id number] [place] [address] 2542 15 Nov, 2008 [facility] [place] [facility] [address] [id number] [place] [address]- 2889 17 Oct, 2008 [facility] [place] [facility] [address] [id number] [place] [address]- 0426 13 Sep, 2008 [facility] [place] [facility] [address] [id number] [place] [address]- 9285 Aug, IMMUNIZATIONS No Known Immunizations SOCIAL HISTORY Never Assessed REASON FOR VISIT DM ed PLAN OF CARE VITAL SIGNS MEDICATIONS No Known Medications RESULTS No Results PROCEDURES No Known procedures INSTRUCTIONS MEDICATIONS ADMINISTERED No Known Medications MEDICAL (GENERAL) HISTORY Type Description Date Medical History hypertension Medical History type II diabetes Medical History hyperlipidemia Medical History chronic pain-knees Surgical History tonsillectomy 1957 Surgical History carderacs removed from both eyes 2017
--- OUTSIDE RECORDS SUMMARY | 2017-07-19 06:15 | XMS REPORT ---
Author SHADIA Nieto [facility] eClinical[employer] Address Unknown Phone Unavailable Care Team Providers Care Data Processing Systems Consultant Name Role Phone SHADIA BLAIR CP Unavailable Allergies, Adverse Reactions, Alerts Substance Reaction Event Type N.K.D.A. 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 Problem Abrasion or friction burn of other, multiple, and unspecified sites, without mention of infection 919.0 Active Medications Medication Code System Code Instructions Start Date End Date Status Dosage Fish Oil [facility] [address]-66 1000 MG Orally Once a day 1 capsule Aspirin [facility] [address]-03 81 MG Orally Once a day 1 tablet Lisinopril-Hydrochlorothiazide [facility] 67099116558 20-12.5 TAKE TWO TABLETS BY MOUTH ONCE DAILY Metformin HCl [facility] [address]-94 1000 MG Orally Twice a day Dec 22, 2014 1 tablet with meals Lovastatin [facility] 51784593930 20MG Once a day 1 tablet Amlodipine Besylate [facility] [address]-69 5 mg Orally Once a day July 17, 2015 1 tablet Levemir FlexTouch [facility] [address]-98 100 UNIT/ML Subcutaneous 2 times a day May 29, 2015 68 units Amaryl [facility] 12631395477 4 MG Orally 2 times per day 1 tablet Tresiba FlexTouch [facility] [address]-13 200 UNIT/ML Subcutaneous Once a day Jan 07, 2016 inject 120 units Metoprolol Tartrate [facility] 21570430952 50MG TAKE ONE TABLET BY MOUTH TWICE DAILY WITH MEALS Procedures Procedure Coding System Code Date Office Visit, Est Pt., Level 3 CPT-4 28926 Jan 07, 2016 Vital Signs Date/Time: Jan 07, 2016 Cardiac Monitoring Heart Rate 72 bpm Weight 280.6 lbs Height 71 in BMI 39.13 Index Blood Pressure Diastolic 76 mmHg Blood Pressure Systolic 158 mmHg Results No Known Results Summary Purpose eClinicalWorks Submission
--- OUTSIDE RECORDS SUMMARY | 2017-07-19 06:15 | XMS REPORT ---
Author SHADIA Nieto [facility] eClinicalWorks Address Unknown Phone Unavailable Care Team Providers Care Checker Dump Grounds Name Role Phone SHADIA BLAIR CP Unavailable Allergies, Adverse Reactions, Alerts Substance Reaction Event Type N.K.D.A. 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 Problem Type 2 diabetes mellitus with hyperglycemia E11.65 Active Problem Controlled type 2 diabetes mellitus without complication, without long -term current use of insulin E11.9 Active Problem Abrasion or friction burn of other, multiple, and unspecified sites, without mention of infection 919.0 Active Assessment Controlled type 2 diabetes mellitus without complication, without long-term current use of insulin E11.9 Active Problem Diabetes type 2, controlled E11.9 Active Problem 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 Medications Medication Code System Code Instructions Start Date End Date Status Dosage Lisinopril-Hydrochlorothiazide [facility] 11926845861 20-12.5 TAKE TWO TABLETS BY MOUTH ONCE DAILY Amlodipine Besylate [facility] [address]-64 5 mg Orally Once a day July 17, 2015 1 tablet Aspirin [facility] [address]-06 81 MG Orally Once a day 1 tablet Fish Oil [facility] [address]-61 1000 MG Orally Once a day 1 capsule Levemir FlexTouch [facility] [address]-02 100 UNIT/ML Subcutaneous 2 times a day May 29, 2015 68 units Lovastatin [facility] [address]-51 20MG TAKE ONE TABLET BY MOUTH ONCE DAILY Metoprolol Tartrate [facility] 90512829209 50MG TAKE ONE TABLET BY MOUTH TWICE DAILY WITH MEALS Amaryl [facility] 91628945374 4 MG Orally 2 times per day 1 tablet Metformin HCl [facility] [address]-80 1000 MG Orally Twice a day Dec 22, 2014 1 tablet with meals Tresiba FlexTouch [facility] [address]-94 200 UNIT/ML Subcutaneous Once a day Jan 07, 2016 inject 120 units Procedures Procedure Coding System Code Date Office Visit, Est Pt., Level 3 CPT-4 88256 Feb 01, 2016 Vital Signs Date/Time: Feb 01, 2016 Cardiac Monitoring Heart Rate 80 bpm Weight 283.2 lbs Height 71 in BMI 39.49 Index Blood Pressure Diastolic 80 mmHg Blood Pressure Systolic 142 mmHg Results No Known Results Summary Purpose eClinicalWorks Submission
--- OUTSIDE RECORDS SUMMARY | 2017-07-19 06:16 | XMS REPORT ---
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 998523490 Problem Other chronic pain G89.29 Active 65397949 Problem Type 2 diabetes mellitus without complications E11.9 Active 841183363 Problem Type 2 diabetes mellitus with hyperglycemia E11.65 Active 222985825 Problem Diabetes type 2, controlled E11.9 Active 02769706 Problem Controlled type 2 diabetes mellitus without complication, without long -term current use of insulin E11.9 Active 310439892 Problem penitentiary current use of insulin Z79.4 Active 389988980 ALLERGIES No Information ENCOUNTERS Encounter Location Date Diagnosis [place] [address] [address] Jun, Diabetes type 2, controlled E11.9 ; Other chronic pain G89.29 ; Pain in left knee M25.562 and Pain in right knee M25.561 [place] [address] [address] [place] [id number] [place] [address]- [address] May, [place] [address] [address] Feb, Other viral agents as the cause of diseases classified elsewhere B97.89 and Acute upper respiratory infection, unspecified J06.9 [place] [address] [address]- [address] Feb, [place] [address] [place] [id number] [place] [address]2544- 8674 Feb, Type 2 diabetes mellitus without complications E11.9 and penitentiary current use of insulin Z79.4 [facility] [address] [address] Dec, [facility] [address] [place] [id number] [place] [address] 64072- 3756 Dec, [facility] [id number] [place] [address] 05591- 0277 Nov, Type 2 diabetes mellitus without complications E11.9 and terminologist current use of insulin Z79.4 [facility] [address] [place] [id number] [place] [address] 42975- 7122 Nov, [facility] [address] [place] [id number] [place] [address] 84996- 0049 Nov, Controlled type 2 diabetes mellitus without complication, without long-term current use of insulin E11.9 [facility] [id number] [place] [address] 43742- 6370 Nov, Controlled type 2 diabetes mellitus without complication, without long-term current use of insulin E11.9 [facility] [id number] [place] [address] 77425- 1037 Nov, Type 2 diabetes mellitus with other circulatory complications E11.59 [facility] [id number] [place] [address] 93397- 3750 Oct, Type 2 diabetes mellitus with hyperglycemia E11.65 [facility] [id number] [place] [address] 31779- 2127 Oct, [facility] [address] [address] 3171 Oct, [facility] [id number] [place] [address] 73583- 6591 Oct, Type 2 diabetes mellitus without complications E11.9 [facility] [address] [address] 7756 Sep, Type 2 diabetes mellitus with hyperglycemia E11.65 [facility] [address] [place] [id number] [place] [address] 74632- 1121 Sep, Type 2 diabetes mellitus with other circulatory complications E11.59 [place] [address] [place] [id number] [place] [address] 54937- 6790 Aug, [place] [address] [place] [id number] [place] [address] 759295- 0520 July, Controlled type 2 diabetes mellitus without complication, without long-term current use of insulin E11.9 [place] [address] [place] [id number] [place] [address] 28985- 2758 May, [place] [address] [place] [id number] [place] [address] 42881- 9467 Feb, Controlled type 2 diabetes mellitus without complication, without long-term current use of insulin E11.9 [place] [address] [place] [id number] [place] [address] 10283- 8550 Jan, Controlled type 2 diabetes mellitus without complication, without long-term current use of insulin E11.9 [place] [id number] [place] [address] 16773- 1439 Jan, Type 2 diabetes mellitus with hyperglycemia E11.65 and penitentiary current use of insulin Z79.4 [place] [id number] [place] [address] 33135- 2800 Nov, Diabetes type 2, controlled E11.9 [place] [id number] [place] [address] 04797- 8929 Aug, Type 2 diabetes mellitus with other circulatory complications E11.59 and Hypertension, essential I10 [place] [id number] [place] [address] 12237- 1119 July, Type 2 diabetes mellitus with hyperglycemia E11.65 and Hypertension, benign I10 [place] [id number] [place] [address] 09246- 6473 May, Type 2 diabetes mellitus with other circulatory complications E11.59 [place] [address] [place] [id number] [place] [address] 31837- 0240 Apr, Diabetes type 2, controlled E11.9 [facility] [address] [address]- 2744 Jan, Type 2 diabetes mellitus with other circulatory complications E11.59 [facility] [address] [address]- 6676 Dec, Type 2 diabetes mellitus with other circulatory complications E11.59 [facility] [id number] [place] [address] 40457- 8816 Aug, Diabetes 250.00 [facility] [id number] [place] [address] 79566- 5874 July, Diabetes 250.00 [facility] [address] [place] [id number] [place] [address] 175129- 4345 Jun, [facility] [id number] [place] [address] 276413- 4727 Jun, [facility] [address] [address]- 7577 Jun, [facility] [address] [address]- 6125 Jun, [facility] [address] [address]- 6829 Jun, [facility] [address] [address]- 2979 May, [facility] [address] [address]- 6751 May, [facility] [address] [address]- 8035 Apr, [facility] [address] [address]- 1900 Apr, [facility] [address] [address]- 8936 Mar, [facility] [place] [facility] [address] [id number] [place] [address]- 8399 16 Mar, 2014 [facility] [place] [facility] [address] [id number] [place] [address]- 1241 29 Feb, 2014 [facility] [place] [facility] [address] [id number] [place] [address]- 3166 Feb, [facility] [place] [facility] [address] [id number] [place] [address]- 2507 Feb, [facility] [place] [facility] [address] [id number] [place] [address]- 3100 Feb, [facility] [place] [facility] [address] [id number] [place] [address]- 6445 15 Feb, 2014 [facility] [place] [facility] [address] [id number] [place] [address]- 0267 15 Feb, 2014 [facility] [place] [facility] [address] [id number] [place] [address]- 5520 Dec, [facility] [place] [facility] [address] [id number] [place] [address]- 8044 13 Dec, 2013 [facility] [place] [facility] [address] [id number] [place] [address]- 8488 29 Nov, 2013 [facility] [place] [facility] [address] [id number] [place] [address]- 7680 29 Nov, 2013 [facility] [place] [facility] [address] [id number] [place] [address]- 2548 29 Sep, 2013 [facility] [place] [facility] [address] [id number] [place] [address] 2548 29 Sep, 2013 [facility] [place] [facility] [address] [id number] [place] [address]- 2546 17 Nov, 2013 [facility] [place] [facility] [address] [id number] [place] [address]- 2546 17 Nov, 2013 [facility] [place] [facility] [address] [id number] [place] [address]- 4652 Nov, [facility] [place] [facility] [address] [id number] [place] [address]- 7028 Nov, [facility] [place] [facility] [address] [id number] [place] [address]- 6321 Aug, [facility] [place] [facility] [address] [id number] [place] [address]- 8916 Aug, [facility] [place] [facility] [address] [id number] [place] [address]- 0861 Aug, [facility] [place] [facility] [address] [id number] [place] [address]- 4413 Aug, [facility] [place] [facility] [address] [id number] [place] [address]- 8997 July, [facility] [place] [facility] [address] [id number] [place] [address]- 5979 July, [facility] [place] [facility] [address] [id number] [place] [address]- 5840 Jun, [facility] [place] [facility] [address] [id number] [place] [address]- 7811 Jun, [facility] [place] [facility] [address] [id number] [place] [address]- 9232 Jun, [facility] [place] [facility] [address] [id number] [place] [address]- 2878 Jun, [facility] [place] [facility] [address] [id number] [address]- 0052 May, [facility] [place] [facility] [address] [id number] [place] [address]- 4005 May, [facility] [place] [facility] [address] [id number] [place] [address]- 4743 Apr, [facility] [place] [facility] [address] [id number] [place] [address]- 9856 Apr, [facility] [place] [facility] [address] [id number] [place] [address]- 4440 Mar, [facility] [address] [id number] [place] [address]- 8572 Mar, [facility] [place] [facility] [address] [id number] [place] [address]- 2820 Mar, [facility] [address] [id number] [place] [address]- 5158 Mar, [facility] [place] [facility] [address] [id number] [place] [address]- 4126 Feb, [facility] [place] [facility] [address] [id number] [place] [address]- 7172 Feb, [facility] [place] [facility] [address] [id number] [place] [address]- 4581 Jan, [facility] [address] [id number] [place] [address]- 3803 Jan, [facility] [place] [facility] [address] [id number] [place] [address]- 3963 Dec, [facility] [place] [facility] [address] [id number] [place] [address]- 6648 Dec, [facility] [place] [facility] [address] [id number] [place] [address]- 1987 Dec, [facility] [place] [facility] [address] [id number] [place] [address]- 0105 Dec, [facility] [place] [facility] [address] [id number] [place] [address]- 9633 Nov, [facility] [place] [facility] [address] [id number] [place] [address]- 6990 Sep, [facility] [place] [facility] [address] [id number] [place] [address]- 2546 Sep, [facility] [place] [facility] [address] [id number] [place] [address]- 3357 Aug, [facility] [place] [facility] [address] [id number] [place] [address]- 3839 July, [facility] [address] [id number] [place] [address]- 4870 Jun, [facility] [address] [id number] [place] 0223 May, [facility] [address] [id number] [place] [address]- 2054 May, [facility] [address] [id number] [place] [address]- 3160 May, [facility] [address] [id number] [place] [address]- 6205 May, [facility] [address] [id number] [place] [address]- 7208 May, [facility] [address] [id number] [place] [address]- 4596 Feb, [facility] [address] [id number] [place] [address]- 2209 Feb, [facility] [address] [id number] [place] [address]- 7716 Jan, [facility] [address] [id number] [place] [address]- 8625 Jan, [facility] [address] [id number] [place] [address]- 2806 Jan, [facility] [place] [facility] [address] [id number] [place] [address]- 0334 Jan, [facility] [place] [facility] [address] [id number] [place] [address]- 8939 Jan, [facility] [place] [facility] [address] [id number] [place] [address]696 Jan, [facility] [place] [facility] [address] [id number] [place] [address]- 8680 Dec, [facility] [place] [facility] [address] [id number] [place] [address]- 1695 18 Dec, 2011 [facility] [place] [facility] [address] [id number] [place] [address]- 0586 18 Dec, 2011 [facility] [place] [facility] [address] [id number] [place] [address]- 8710 18 Dec, 2011 [facility] [place] [facility] [address] [id number] [place] [address]- 2816 10 Dec, 2011 [facility] [place] [facility] [address] [id number] [place] [address]- 4036 26 Nov, 2011 [facility] [place] [facility] [address] [id number] [place] [address]- 6809 18 Nov, 2011 [facility] [place] [facility] [address] [id number] [place] [address]- 1548 13 Nov, 2011 [facility] [place] [facility] [address] [id number] [place] [address]- 5552 Sep, [facility] [place] [facility] [address] [id number] [place] [address]- 6581 Aug, [facility] [place] [facility] [address] [id number] [place] [address]- 2149 Aug, [facility] [place] [facility] [address] [id number] [place] [address]- 5295 May, [facility] [place] [facility] [address] [id number] [place] [address]- 0916 Apr, [facility] [place] [facility] [address] [id number] [place] [address]- 6723 Mar, [facility] [place] [facility] [address] [id number] [place] [address]- 8926 Mar, [facility] [place] [facility] [address] [id number] [place] [address]- 9359 Dec, [facility] [place] [facility] [address] [id number] [place] [address]- 6704 11 Sep, 2010 [facility] [address] [id number] [place] [address]- 5956 2010 [facility] [place] [facility] [address] [id number] [place] 6966 2010 [facility] [address] [id number] [place] [address]- 3455 11 Jan, 2010 [facility] [place] [facility] [address] [id number] [place] [address]- 1502 08 Jan, 2010 [facility] [address] [id number] [place] [address]- 6671 10 Nov, 2009 [facility] [place] [facility] [address] [id number] [place] [address]- 7970 15 Feb, 2009 [facility] [place] [facility] [address] [id number] [place] [address]- 6700 15 Feb, 2009 [facility] [address] [id number] [place] [address]- 7104 16 Jan, 2009 [facility] [place] [facility] [address] [id number] [place] [address]- 8891 16 Jan, 2009 [facility] [address] [id number] [place] [address]- 1917 13 Dec, 2008 [facility] [place] [facility] [address] [id number] [place] [address]- 3831 13 Dec, 2008 [facility] [place] [facility] [address] [id number] [place] [address] 2547 15 Nov, 2008 [facility] [place] [facility] [address] [id number] [place] [address]- 7703 17 Oct, 2008 [facility] [place] [facility] [address] [id number] [place] [address]- 1066 13 Sep, 2008 [facility] [place] [facility] [address] [id number] [place] [address]- 4339 Aug, IMMUNIZATIONS No Known Immunizations SOCIAL HISTORY Never Assessed REASON FOR VISIT PALS PLAN OF CARE VITAL SIGNS MEDICATIONS Medication Instructions Dosage Frequency Start Date End Date Duration Status NovoLog Flexpen 100 UNIT/ML Subcutaneous 3 times a day with meals inject 20 units Sep, 90 days Active RESULTS No Results PROCEDURES No Known procedures INSTRUCTIONS MEDICATIONS ADMINISTERED No Known Medications MEDICAL (GENERAL) HISTORY Type Description Date Medical History hypertension Medical History type II diabetes Medical History hyperlipidemia Medical History chronic pain-knees Surgical History tonsillectomy 1957 Surgical History carderacs removed from both eyes 2017
--- OUTSIDE RECORDS SUMMARY | 2017-07-19 06:16 | XMS REPORT ---
Author SHADIA Nieto Organization [employer] Address Unknown Phone Unavailable Care Team Providers Care Food Dehydrator Operator Name Role Phone SHADIA BLAIR CP Unavailable Allergies, Adverse Reactions, Alerts Substance Reaction Event Type N.K.D.A. 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 Medications Medication Code System Code Instructions Start Date End Date Status Dosage Lovastatin [facility] 40498447488 20MG Once a day 1 tablet Metformin HCl [facility] [address]-59 1000 MG Orally Twice a day Dec 22, 2014 1 tablet with meals Lisinopril-Hydrochlorothiazide [facility] 17967577317 20-12.5 TAKE TWO TABLETS BY MOUTH ONCE DAILY Fish Oil [facility] [address]-13 1000 MG Orally Once a day 1 capsule Amaryl [facility] [address]-25 4 MG Orally 2 times per day July 03, 2014 1 tablet Levemir Flexpen [facility] [address]-26 100 unit/mL (3 mL) 2 times a day Mar 50 units Metoprolol Tartrate [facility] 93357303461 50MG TAKE ONE TABLET BY MOUTH TWICE DAILY WITH MEALS Aspirin [facility] [address]-70 81 MG Orally Once a day 1 tablet Procedures Procedure Coding System Code Date GLYCATED HEMOGLOBIN TEST CPT-4 42744 Dec 22, 2014 Office Visit, Est Pt., Level 3 CPT-4 34091 Dec 22, 2014 MICROALBUMIN, SEMIQUANT CPT-4 85897 Dec 22, 2014 Vital Signs Date/Time: Dec 22, 2014 Temperature 98.0 F Weight 279 lbs Height 71 in BMI 38.91 Index Blood Pressure Diastolic 62 mmHg Blood Pressure Systolic 138 mmHg Cardiac Monitoring Heart Rate 80 bpm Results Name Result Date Reference Range Unit Abnormality Flag A1C (IN HOUSE) Summary Purpose [employer] Submission
--- OUTSIDE RECORDS SUMMARY | 2017-07-19 06:16 | XMS REPORT ---
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 078036982 Problem Other chronic pain G89.29 Active 91686313 Problem Type 2 diabetes mellitus without complications E11.9 Active 809841154 Problem Type 2 diabetes mellitus with hyperglycemia E11.65 Active 534724966 Problem Diabetes type 2, controlled E11.9 Active 25540926 Problem Controlled type 2 diabetes mellitus without complication, without long -term current use of insulin E11.9 Active 997716428 Problem long-term current use of insulin Z79.4 Active 712561627 ALLERGIES No Information ENCOUNTERS Encounter Location Date Diagnosis [place] [address] [address] Jun, Diabetes type 2, controlled E11.9 ; Other chronic pain G89.29 ; Pain in left knee M25.562 and Pain in right knee M25.561 [place] [address] [place] [id number] [place] [address] May, [place] [address] [address] Feb, Other viral agents as the cause of diseases classified elsewhere B97.89 and Acute upper respiratory infection, unspecified J06.9 [place] [address] [address]- [address] Feb, [place] [address] [place] [id number] [place] [address]7084- [address] Feb, Type 2 diabetes mellitus without complications E11.9 and long-term current use of insulin Z79.4 [facility] [address] [address] Dec, [facility] [address] [place] [id number] [place] [address] 83036- 3566 Dec, [facility] [id number] [place] [address] 06395- 8246 Nov, Type 2 diabetes mellitus without complications E11.9 and 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 Z79.4 [facility] [address] [place] [id number] [place] [address] 12094- 4236 Nov, [facility] [address] [place] [id number] [place] [address] 53519- 7139 Nov, Controlled type 2 diabetes mellitus without complication, without long-term current use of insulin E11.9 [facility] [id number] [place] [address] 47031- 6691 Nov, Controlled type 2 diabetes mellitus without complication, without long-term current use of insulin E11.9 [facility] [id number] [place] [address] 30060- 8210 Nov, Type 2 diabetes mellitus with other circulatory complications E11.59 [facility] [id number] [place] [address] 11148- 2043 Oct, Type 2 diabetes mellitus with hyperglycemia E11.65 [facility] [id number] [place] [address] 58607- 0454 Oct, [facility] [address] [address] 3767 Oct, [facility] [id number] [place] [address] 91970- 6937 Oct, Type 2 diabetes mellitus without complications E11.9 [facility] [address] [address] 1390 Sep, Type 2 diabetes mellitus with hyperglycemia E11.65 [facility] [address] [place] [id number] [place] [address] 30348- 5537 Sep, Type 2 diabetes mellitus with other circulatory complications E11.59 [place] [address] [place] [id number] [place] [address] 13719- 9071 Aug, [place] [address] [place] [id number] [place] [address] 124565- 6635 July, Controlled type 2 diabetes mellitus without complication, without long-term current use of insulin E11.9 [place] [address] [place] [id number] [place] [address] 90578- 9918 May, [place] [address] [place] [id number] [place] [address] 89504- 9075 Feb, Controlled type 2 diabetes mellitus without complication, without long-term current use of insulin E11.9 [place] [address] [place] [id number] [place] [address] 77301- 0472 Jan, Controlled type 2 diabetes mellitus without complication, without long-term current use of insulin E11.9 [place] [id number] [place] [address] 83407- 6582 Jan, Type 2 diabetes mellitus with hyperglycemia E11.65 and long-term current use of insulin Z79.4 [place] [id number] [place] [address] 96354- 7079 Nov, Diabetes type 2, controlled E11.9 [place] [id number] [place] [address] 95225- 7914 Aug, Type 2 diabetes mellitus with other circulatory complications E11.59 and Hypertension, essential I10 [place] [id number] [place] [address] 06242- 1782 July, Type 2 diabetes mellitus with hyperglycemia E11.65 and Hypertension, benign I10 [place] [id number] [place] [address] 16396- 1734 May, Type 2 diabetes mellitus with other circulatory complications E11.59 [place] [address] [place] [id number] [place] [address] 66759- 1987 Apr, Diabetes type 2, controlled E11.9 [facility] [address] [address] 239[address] Jan, Type 2 diabetes mellitus with other circulatory complications E11.59 [facility] [address] [address]- 7396 Dec, Type 2 diabetes mellitus with other circulatory complications E11.59 [facility] [id number] [place] [address] 56373- 8936 Aug, Diabetes 250.00 [facility] [id number] [place] [address] 80654- 5680 July, Diabetes 250.00 [facility] [address] [place] [id number] [place] [address] 941179- 8013 Jun, [facility] [id number] [place] [address] 537494- 5958 Jun, [facility] [address] [address]- 0068 Jun, [facility] [address] [address]- 6278 Jun, [facility] [address] [address]- 1823 Jun, [facility] [address] [address]- 7583 May, [facility] [address] [address]- 9872 May, [facility] [address] [address]- 3009 Apr, [facility] [address] [address]- 2265 Apr, [facility] [address] [address]- 3[address] Mar, [facility] [place] [facility] [address] [id number] [place] [address]- 4655 16 Mar, 2014 [facility] [place] [facility] [address] [id number] [place] [address]- 2573 29 Feb, 2014 [facility] [place] [facility] [address] [id number] [place] [address]- 1646 Feb, [facility] [place] [facility] [address] [id number] [place] [address]- 9410 Feb, [facility] [place] [facility] [address] [id number] [place] [address]- 3736 Feb, [facility] [place] [facility] [address] [id number] [place] [address]- 6974 15 Feb, 2014 [facility] [place] [facility] [address] [id number] [place] [address]- 8396 15 Feb, 2014 [facility] [place] [facility] [address] [id number] [place] [address]- 0796 Dec, [facility] [place] [facility] [address] [id number] [place] [address]- 4670 13 Dec, 2013 [facility] [place] [facility] [address] [id number] [place] [address]- 4011 29 Nov, 2013 [facility] [place] [facility] [address] [id number] [place] [address]- 9894 29 Nov, 2013 [facility] [place] [facility] [address] [id number] [place] [address]- 2548 29 Sep, 2013 [facility] [place] [facility] [address] [id number] [place] [address] 254 29 Sep, 2013 [facility] [place] [facility] [address] [id number] [place] [address]- 2546 17 Nov, 2013 [facility] [place] [facility] [address] [id number] [place] [address]- 2546 17 Nov, 2013 [facility] [place] [facility] [address] [id number] [place] [address]- 8761 Nov, [facility] [place] [facility] [address] [id number] [place] [address]- 1881 Nov, [facility] [place] [facility] [address] [id number] [place] [address]- 4643 Aug, [facility] [place] [facility] [address] [id number] [place] [address]- 7996 Aug, [facility] [place] [facility] [address] [id number] [place] [address]- 8379 Aug, [facility] [place] [facility] [address] [id number] [place] [address]- 5630 Aug, [facility] [place] [facility] [address] [id number] [place] [address]- 5550 July, [facility] [place] [facility] [address] [id number] [place] [address]- 6731 July, [facility] [place] [facility] [address] [id number] [place] [address]- 1835 Jun, [facility] [place] [facility] [address] [id number] [place] [address]- 5318 Jun, [facility] [place] [facility] [address] [id number] [place] [address]- 9166 Jun, [facility] [place] [facility] [address] [id number] [place] [address]- 5170 Jun, [facility] [place] [facility] [address] [id number] [address]- 9750 May, [facility] [place] [facility] [address] [id number] [place] [address]- 9782 May, [facility] [place] [facility] [address] [id number] [place] [address]- 9819 Apr, [facility] [place] [facility] [address] [id number] [place] [address]- 9410 Apr, [facility] [place] [facility] [address] [id number] [place] [address]- 1426 Mar, [facility] [address] [id number] [place] [address]- 9452 Mar, [facility] [place] [facility] [address] [id number] [place] [address]- 7415 Mar, [facility] [address] [id number] [place] [address]- 3527 Mar, [facility] [place] [facility] [address] [id number] [place] [address]- 7329 Feb, [facility] [place] [facility] [address] [id number] [place] [address]- 7934 Feb, [facility] [place] [facility] [address] [id number] [place] [address]- 7907 Jan, [facility] [address] [id number] [place] [address]- 6126 Jan, [facility] [place] [facility] [address] [id number] [place] [address]- 7123 Dec, [facility] [place] [facility] [address] [id number] [place] [address]- 2278 Dec, [facility] [place] [facility] [address] [id number] [place] [address]- 8597 Dec, [facility] [place] [facility] [address] [id number] [place] [address]- 2798 Dec, [facility] [place] [facility] [address] [id number] [place] [address]- 7975 Nov, [facility] [place] [facility] [address] [id number] [place] [address]- 4678 Sep, [facility] [place] [facility] [address] [id number] [place] [address]- 2546 Sep, [facility] [place] [facility] [address] [id number] [place] [address]- 1145 Aug, [facility] [place] [facility] [address] [id number] [place] [address]- 4170 July, [facility] [address] [id number] [place] [address]- 4408 Jun, [facility] [address] [id number] [place] [address] May, [facility] [address] [id number] [place] [address]- 6686 May, [facility] [address] [id number] [place] [address]- 0091 May, [facility] [address] [id number] [place] [address]- 8881 May, [facility] [address] [id number] [place] [address]- 6459 May, [facility] [address] [id number] [place] [address]- 8228 Feb, [facility] [address] [id number] [place] [address]- 6064 Feb, [facility] [address] [id number] [place] [address]- 9495 Jan, [facility] [address] [id number] [place] [address]- 3002 Jan, [facility] [address] [id number] [place] [address]- 9903 Jan, [facility] [place] [facility] [address] [id number] [place] [address]- 6126 Jan, [facility] [place] [facility] [address] [id number] [place] [address]- 5797 Jan, [facility] [place] [facility] [address] [id number] [place] 3210 Jan, [facility] [place] [facility] [address] [id number] [place] [address]- 0668 Dec, [facility] [place] [facility] [address] [id number] [place] [address]- 7092 18 Dec, 2011 [facility] [place] [facility] [address] [id number] [place] [address]- 0176 18 Dec, 2011 [facility] [place] [facility] [address] [id number] [place] [address]- 9698 18 Dec, 2011 [facility] [place] [facility] [address] [id number] [place] [address]- 5438 10 Dec, 2011 [facility] [place] [facility] [address] [id number] [place] [address]- 1386 26 Nov, 2011 [facility] [place] [facility] [address] [id number] [place] [address]- 4701 18 Nov, 2011 [facility] [place] [facility] [address] [id number] [place] [address]- 6727 13 Nov, 2011 [facility] [place] [facility] [address] [id number] [place] [address]- 5797 Sep, [facility] [place] [facility] [address] [id number] [place] [address]- 6514 Aug, [facility] [place] [facility] [address] [id number] [place] [address]- 8552 Aug, [facility] [place] [facility] [address] [id number] [place] [address]- 0664 May, [facility] [place] [facility] [address] [id number] [place] [address]- 1186 Apr, [facility] [place] [facility] [address] [id number] [place] [address]- 7028 Mar, [facility] [place] [facility] [address] [id number] [place] [address]- 2723 Mar, [facility] [place] [facility] [address] [id number] [place] [address]- 9047 Dec, [facility] [place] [facility] [address] [id number] [place] [address]- 3908 11 Sep, 2010 [facility] [address] [id number] [place] [address]- 2425 2010 [facility] [place] [facility] [address] [id number] [place] [address]36 2010 [facility] [address] [id number] [place] [address]- 5039 11 Jan, 2010 [facility] [place] [facility] [address] [id number] [place] [address]- 0895 08 Jan, 2010 [facility] [address] [id number] [place] [address]- 4765 10 Nov, 2009 [facility] [place] [facility] [address] [id number] [place] [address]- 1168 15 Feb, 2009 [facility] [place] [facility] [address] [id number] [place] [address]- 5187 15 Feb, 2009 [facility] [address] [id number] [place] [address]- 5240 16 Jan, 2009 [facility] [place] [facility] [address] [id number] [place] [address]- 5193 16 Jan, 2009 [facility] [address] [id number] [place] [address]- 9477 13 Dec, 2008 [facility] [place] [facility] [address] [id number] [place] [address]- 6303 13 Dec, 2008 [facility] [place] [facility] [address] [id number] [place] [address] 2541 15 Nov, 2008 [facility] [place] [facility] [address] [id number] [place] [address]- 9403 17 Oct, 2008 [facility] [place] [facility] [address] [id number] [place] [address]- 8806 13 Sep, 2008 [facility] [place] [facility] [address] [id number] [place] [address]- 0229 Aug, IMMUNIZATIONS No Known Immunizations SOCIAL HISTORY Never Assessed REASON FOR VISIT insulin issues PLAN OF CARE VITAL SIGNS MEDICATIONS Medication Instructions Dosage Frequency Start Date End Date Duration Status NovoLog Flexpen 100 UNIT/ML DX E11.59 3 times a day with meals inject 20 units Sep, Active Levemir FlexTouch 100 UNIT/ML DX E11.59 2 times a day 40 units 12h Oct, Active RESULTS No Results PROCEDURES No Known procedures INSTRUCTIONS MEDICATIONS ADMINISTERED No Known Medications MEDICAL (GENERAL) HISTORY Type Description Date Medical History hypertension Medical History type II diabetes Medical History hyperlipidemia Medical History chronic pain-knees Surgical History tonsillectomy 1957 Surgical History carderacs removed from both eyes 2017
--- OUTSIDE RECORDS SUMMARY | 2017-07-19 06:16 | XMS REPORT ---
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 142521339 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 960660138 Problem Type 2 diabetes mellitus with hyperglycemia E11.65 Active 970482320 ALLERGIES No Known Allergies SOCIAL HISTORY Never Assessed PLAN OF CARE VITAL SIGNS Height 71 in 2016-07-15 Weight 298 lbs 2016-07-15 Temperature 98.0 degrees Fahrenheit 2016-07-15 Heart Rate 80 bpm 2016-07-15 Respiratory Rate 18 2016-07-15 BMI 41.56 kg/m2 2016-07-15 Blood pressure systolic 190 mmHg 2016-07-15 Blood pressure diastolic 100 mmHg 2016-07-15 MEDICATIONS Medication Instructions Dosage Frequency Start Date End Date Duration Status Aspirin 81 MG Orally Once a day 1 tablet 24h Active Metformin HCl 1000 MG Orally Twice a day 1 tablet with meals 12h Dec, Active Amlodipine Besylate 5 mg Orally Once a day 1 tablet 24h July, Active Lisinopril-Hydrochlorothiazide 20-12.5MG TAKE TWO TABLETS BY MOUTH ONCE DAILY 90 Active Metoprolol Tartrate 50MG TAKE ONE TABLET BY MOUTH TWICE DAILY WITH MEALS 30 Active Fish Oil 1000 MG Orally Once a day 1 capsule 24h Active Lovastatin 20 mg 1 tablet with a meal 24h 90 Active Amaryl 4 MG Orally 2 times per day 1 tablet 90 Active Tresiba FlexTouch 200 UNIT/ML Subcutaneous Once a day inject 120 units 24h Jan, Active RESULTS Name Result Date Reference Range A1C (IN HOUSE) 2016-07-15 A1C IN HOUSE 8.0 4.3 - 5.6 % Previous A1c 7.4 Lot 0692 Exp date TSH 2016-07-15 TSH 1.430 0.450-4.500 CBC 2016-07-15 WBC 12.4 3.4-10.8 RBC 4.51 4.14-5.80 Hemoglobin 13.1 12.6-17.7 Hematocrit 39.7 37.5-51.0 MCV 88 79-97 MCH 29.0 26.6-33.0 MCHC 33.0 31.5-35.7 RDW 14.2 12.3-15.4 Platelets 236 150-379 Neutrophils 22 Lymphs 66 Monocytes 6 Eos 5 Basos 1 Immature Cells Neutrophils (Absolute) 2.7 1.4-7.0 Lymphs (Absolute) 8.2 0.7-3.1 Monocytes(Absolute) 0.7 0.1-0.9 Eos (Absolute) 0.6 0.0-0.4 Baso (Absolute) 0.1 0.0-0.2 Immature Granulocytes Immature Grans (Abs) [facility] Hematology Comments: Note: LIPID PANEL 2016-07-15 Cholesterol, Total 137 100-199 Triglycerides 144 0-149 HDL Cholesterol 31 >39 VLDL Cholesterol Breezy 29 5-40 LDL Cholesterol Calc 77 0-99 CMP 2016-07-15 Glucose, Serum 153 65-99 BUN 20 8-27 Creatinine, Serum 0.84 0.76-1.27 eGFR If NonAfricn Am 92 >59 eGFR If Africn Am 106 >59 BUN/Creatinine Ratio 24 10-24 Sodium, Serum 136 134-144 Potassium, Serum 4.2 3.5-5.2 Chloride, Serum 97 96-106 Carbon Dioxide, Total 22 18-29 Calcium, Serum 9.3 8.6-10.2 Protein, Total, Serum 6.5 6.0-8.5 Albumin, Serum 4.2 3.6-4.8 Globulin, Total 2.3 1.5-4.5 A/G Ratio 1.8 1.2-2.2 Bilirubin, Total 0.3 0.0-1.2 Alkaline Phosphatase, S 102 39-117 AST (SGOT) 14 0-40 ALT (SGPT) 15 0-44 PROCEDURES Procedure Date Ordered Result Body Site ASSAY THYROID STIM HORMONE July 15, 2016 GLYCATED HEMOGLOBIN TEST July 15, 2016 LIPID PANEL July 15, 2016 COMPLETE CBC W/AUTO DIFF WBC July 15, 2016 VENIPUNCT, ROUTINE* July 15, 2016 COMPREHEN METABOLIC PANEL July 15, 2016 IMMUNIZATIONS No Known Immunizations MEDICAL (GENERAL) HISTORY Type Description Date Medical History hypertension Medical History type II diabetes Medical History hyperlipidemia Medical History chronic pain-knees Surgical History tonsillectomy 1957
--- OUTSIDE RECORDS SUMMARY | 2017-07-19 06:17 | XMS REPORT ---
Author Author SHADIA BLAIR 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 Unknown Non Drug Allergy Feb, Unknown SOCIAL HISTORY No smoking Hx information available PLAN OF CARE Activity Details Follow Up 4 Months Reason:3 mo. dm checkup VITAL SIGNS Height 71 in 2016-03-03 Weight 288 lbs 2016-03-03 Temperature 97.8 degrees Fahrenheit 2016-03-03 Heart Rate 88 bpm 2016-03-03 Respiratory Rate 16 2016-03-03 BMI 40.16 kg/m2 2016-03-03 Blood pressure systolic 144 mmHg 2016-03-03 Blood pressure diastolic 78 mmHg 2016-03-03 MEDICATIONS Medication Instructions Dosage Frequency Start Date End Date Duration Status Lovastatin 20MG TAKE ONE TABLET BY MOUTH ONCE DAILY 90 Active Aspirin 81 MG Orally Once a day 1 tablet 24h Active Metformin HCl 1000 MG Orally Twice a day 1 tablet with meals 12h Dec, Active Tresiba FlexTouch 200 UNIT/ML Subcutaneous Once a day inject 120 units 24h Jan, Active Fish Oil 1000 MG Orally Once a day 1 capsule 24h Active Metoprolol Tartrate 50MG TAKE ONE TABLET BY MOUTH TWICE DAILY WITH MEALS 30 Active Amaryl 4 MG Orally 2 times per day 1 tablet 90 Active Amlodipine Besylate 5 mg Orally Once a day 1 tablet 24h July, Active Lisinopril-Hydrochlorothiazide 20-12.5 TAKE TWO TABLETS BY MOUTH ONCE DAILY 90 Active RESULTS No Results PROCEDURES Procedure Date Ordered Related Diagnosis Body Site Office Visit, Est Pt., Level 3 Mar 03, 2016 IMMUNIZATIONS No Known Immunizations
--- OUTSIDE RECORDS SUMMARY | 2017-07-19 06:17 | XMS REPORT ---
Author Author SHADIA BLAIR Organization 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 214730858 Problem Other chronic pain G89.29 Active 03648759 Problem Type 2 diabetes mellitus without complications E11.9 Active 281745661 Problem Type 2 diabetes mellitus with hyperglycemia E11.65 Active 742386144 Problem Diabetes type 2, controlled E11.9 Active 98222136 Problem Controlled type 2 diabetes mellitus without complication, without long -term current use of insulin E11.9 Active 185956066 Problem FPC current use of insulin Z79.4 Active [id number] ALLERGIES No Information ENCOUNTERS Encounter Location Date Diagnosis [place] [address] [address] Jun, Diabetes type 2, controlled E11.9 ; Other chronic pain G89.29 ; Pain in left knee M25.562 and Pain in right knee M25.561 [place] [address] [place] [id number] [place] [address]40- [address]456 May, [place] [address] [address] Feb, Other viral agents as the cause of diseases classified elsewhere B97.89 and Acute upper respiratory infection, unspecified J06.9 [place] [address] [address]- [address] Feb, [place] [address] [place] [id number] [place] [address]15- 0128 Feb, Type 2 diabetes mellitus without complications E11.9 and FPC current use of insulin Z79.4 [facility] [address] [address] Dec, [facility] [address] [place] [id number] [place] [address] 01572- 9876 Dec, 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 [address] [place] [id number] [place] [address] 19531- 0894 Nov, [facility] [address] [place] [id number] [place] [address] 83425- 3980 Nov, Controlled type 2 diabetes mellitus without complication, without long-term current use of insulin E11.9 [facility] [id number] [place] [address] 37938- 3983 Nov, Controlled type 2 diabetes mellitus without complication, without long-term current use of insulin E11.9 [facility] [id number] [place] [address] 69850- 3302 Nov, Type 2 diabetes mellitus with other circulatory complications E11.59 [facility] [id number] [place] [address] 83584- 3325 Oct, Type 2 diabetes mellitus with hyperglycemia E11.65 [facility] [id number] [place] [address] 65560- 1488 Oct, [facility] [address] [address] Oct, [facility] [id number] [place] [address] 97452- 6356 Oct, Type 2 diabetes mellitus without complications E11.9 [facility] [address] [address] 0951 Sep, Type 2 diabetes mellitus with hyperglycemia E11.65 [facility] [address] [place] [id number] [place] [address] 06732- 1645 Sep, Type 2 diabetes mellitus with other circulatory complications E11.59 [place] [address] [place] [id number] [place] [address] 08688- 5831 Aug, [place] [address] [place] [id number] [place] [address] 061397- 3786 July, Controlled type 2 diabetes mellitus without complication, without long-term current use of insulin E11.9 [place] [address] [place] [id number] [place] [address] 77336- 5573 May, [place] [address] [place] [id number] [place] [address] 76989- 2597 Feb, Controlled type 2 diabetes mellitus without complication, without long-term current use of insulin E11.9 [place] [address] [place] [id number] [place] [address] 49879- 0262 Jan, Controlled type 2 diabetes mellitus without complication, without long-term current use of insulin E11.9 [place] [id number] [place] [address] 31349- 6113 Jan, Type 2 diabetes mellitus with hyperglycemia E11.65 and FPC current use of insulin Z79.4 [place] [id number] [place] [address] 32219- 3609 Nov, Diabetes type 2, controlled E11.9 [place] [id number] [place] [address] 79232- 0881 Aug, Type 2 diabetes mellitus with other circulatory complications E11.59 and Hypertension, essential I10 [place] [id number] [place] [address] 88963- 2973 July, Type 2 diabetes mellitus with hyperglycemia E11.65 and Hypertension, benign I10 [place] [address] [place] [address] 64355- 7909 May, Type 2 diabetes mellitus with other circulatory complications E11.59 [place] [address] [place] [id number] [place] [address] 29552- 5268 Apr, Diabetes type 2, controlled E11.9 [facility] [address] [place] [address] 1627 Jan, Type 2 diabetes mellitus with other circulatory complications E11.59 [facility] [address] [address]- 5686 Dec, Type 2 diabetes mellitus with other circulatory complications E11.59 [facility] [address] [place] [address] 06618- 0356 Aug, Diabetes 250.00 [facility] [address] [place] [address] 94433- 0408 July, Diabetes 250.00 [facility] [address] [place] [id number] [place] [address] 818502- 9914 Jun, [facility] [id number] [place] [address] 172835- 6992 Jun, [facility] [address] [address]- 6179 Jun, [facility] [address] [address]- 7997 Jun, [facility] [address] [address]- 1894 Jun, [facility] [address] [address]- 6375 May, [facility] [address] [address]- 2278 May, [facility] [address] [address]- 9203 Apr, [facility] [address] [place] [address]- 2677 Apr, [facility] [address] [place] [address]- 1266 Mar, [facility] [place] [facility] [address] [id number] [place] [address]- 9232 16 Mar, 2014 [facility] [place] [facility] [address] [id number] [place] [address]- 2330 29 Feb, 2014 [facility] [place] [facility] [address] [id number] [place] [address]- 9106 Feb, [facility] [place] [facility] [address] [id number] [place] [address]- 0243 Feb, [facility] [place] [facility] [address] [id number] [place] [address]- 4200 Feb, [facility] [place] [facility] [address] [id number] [place] [address]- 6453 15 Feb, 2014 [facility] [place] [facility] [address] [id number] [place] [address]- 9572 15 Feb, 2014 [facility] [place] [facility] [address] [id number] [place] [address]- 5419 Dec, [facility] [place] [facility] [address] [id number] [place] [address]- 1734 13 Dec, 2013 [facility] [place] [facility] [address] [id number] [place] [address]- 5881 29 Nov, 2013 [facility] [place] [facility] [address] [id number] [place] [address]- 2313 29 Nov, 2013 [facility] [place] [facility] [address] [id number] [place] [address]- 2545 29 Sep, 2013 [facility] [place] [facility] [address] [id number] [place] [address] 2547 29 Sep, 2013 [facility] [place] [facility] [address] [id number] [place] [address]- 2546 17 Nov, 2013 [facility] [place] [facility] [address] [id number] [place] [address]- 2546 17 Nov, 2013 [facility] [place] [facility] [address] [id number] [place] [address]- 8194 Nov, [facility] [place] [facility] [address] [id number] [place] [address]- 8392 Nov, [facility] [place] [facility] [address] [id number] [place] [address]- 7104 Aug, [facility] [place] [facility] [address] [id number] [place] [address]- 9995 Aug, [facility] [place] [facility] [address] [id number] [place] [address]- 2774 Aug, [facility] [place] [facility] [address] [id number] [place] [address]- 8406 Aug, [facility] [place] [facility] [address] [id number] [place] [address]- 7708 July, [facility] [place] [facility] [address] [id number] [place] [address]- 9712 July, [facility] [place] [facility] [address] [id number] [place] [address]- 3725 Jun, [facility] [place] [facility] [address] [id number] [place] [address]- 3941 Jun, [facility] [place] [facility] [address] [id number] [place] [address]- 7125 Jun, [facility] [place] [facility] [address] [id number] [place] [address]- 8025 Jun, [facility] [place] [facility] [address] [id number] [address]- 6669 May, [facility] [place] [facility] [address] [id number] [place] [address]- 9912 May, [facility] [place] [facility] [address] [id number] [place] [address]- 3116 Apr, [facility] [place] [facility] [address] [id number] [place] [address]- 1465 Apr, [facility] [place] [facility] [address] [id number] [place] [address]- 8549 Mar, [facility] [address] [id number] [place] [address]- 4721 Mar, [facility] [place] [facility] [address] [id number] [place] [address]- 1037 Mar, [facility] [address] [id number] [place] [address]- 8147 Mar, [facility] [place] [facility] [address] [id number] [place] [address]- 4788 Feb, [facility] [place] [facility] [address] [id number] [place] [address]- 7827 Feb, [facility] [place] [facility] [address] [id number] [place] [address]- 9798 Jan, [facility] [address] [id number] [place] [address]- 9987 Jan, [facility] [place] [facility] [address] [id number] [place] [address]- 0409 Dec, [facility] [place] [facility] [address] [id number] [place] [address]- 4160 Dec, [facility] [place] [facility] [address] [id number] [place] [address]- 9180 Dec, [facility] [place] [facility] [address] [id number] [place] [address]- 2592 Dec, [facility] [place] [facility] [address] [id number] [place] [address]- 3650 Nov, [facility] [place] [facility] [address] [id number] [place] [address]- 5456 Sep, [facility] [place] [facility] [address] [id number] [place] [address]- 2546 Sep, [facility] [place] [facility] [address] [id number] [place] [address]- 6556 Aug, [facility] [place] [facility] [address] [id number] [place] [address]- 8894 July, [facility] [address] [id number] [place] [address]- 4714 Jun, [facility] [address] [id number] [place] 6691 May, [facility] [address] [id number] [place] [address]- 3911 May, [facility] [address] [id number] [place] [address]- 3903 May, [facility] [address] [id number] [place] [address]- 1187 May, [facility] [address] [id number] [place] [address]- 1817 May, [facility] [address] [id number] [place] [address]- 8136 Feb, [facility] [address] [id number] [place] [address]- 5296 Feb, [facility] [address] [id number] [place] [address]- 5289 Jan, [facility] [address] [id number] [place] [address]- 0666 Jan, [facility] [address] [id number] [place] [address]- 5873 Jan, [facility] [place] [facility] [address] [id number] [place] [address]- 7171 Jan, [facility] [place] [facility] [address] [id number] [place] [address]- 5164 Jan, [facility] [place] [facility] [address] [id number] [place] 7069 Jan, [facility] [place] [facility] [address] [id number] [place] [address]- 6179 Dec, [facility] [place] [facility] [address] [id number] [place] [address]- 1040 18 Dec, 2011 [facility] [place] [facility] [address] [id number] [place] [address]- 0906 18 Dec, 2011 [facility] [place] [facility] [address] [id number] [place] [address]- 2838 18 Dec, 2011 [facility] [place] [facility] [address] [id number] [place] [address]- 0160 10 Dec, 2011 [facility] [place] [facility] [address] [id number] [place] [address]- 3206 26 Nov, 2011 [facility] [place] [facility] [address] [id number] [place] [address]- 0700 18 Nov, 2011 [facility] [place] [facility] [address] [id number] [place] [address]- 8574 13 Nov, 2011 [facility] [place] [facility] [address] [id number] [place] [address]- 5460 Sep, [facility] [place] [facility] [address] [id number] [place] [address]- 5172 Aug, [facility] [place] [facility] [address] [id number] [place] [address]- 6002 Aug, [facility] [place] [facility] [address] [id number] [place] [address]- 0451 May, [facility] [place] [facility] [address] [id number] [place] [address]- 0779 Apr, [facility] [place] [facility] [address] [id number] [place] [address]- 4850 Mar, [facility] [place] [facility] [address] [id number] [place] [address]- 0224 Mar, [facility] [place] [facility] [address] [id number] [place] [address]- 0579 Dec, [facility] [place] [facility] [address] [id number] [place] [address]- 3540 11 Sep, 2010 [facility] [address] [id number] [place] [address]- 3445 2010 [facility] [place] [facility] [address] [id number] [place] 2456 2010 [facility] [address] [id number] [place] [address]- 6620 11 Jan, 2010 [facility] [place] [facility] [address] [id number] [place] [address]- 9589 08 Jan, 2010 [facility] [address] [id number] [place] [address]- 3949 10 Nov, 2009 [facility] [place] [facility] [address] [id number] [place] [address]- 2055 15 Feb, 2009 [facility] [place] [facility] [address] [id number] [place] [address]- 6870 15 Feb, 2009 [facility] [address] [id number] [place] [address]- 4059 16 Jan, 2009 [facility] [place] [facility] [address] [id number] [place] [address]- 2383 16 Jan, 2009 [facility] [address] [id number] [place] [address]- 2555 13 Dec, 2008 [facility] [place] [facility] [address] [id number] [place] [address]- 5724 13 Dec, 2008 [facility] [place] [facility] [address] [id number] [place] [address] 2543 15 Nov, 2008 [facility] [place] [facility] [address] [id number] [place] [address]- 9354 17 Oct, 2008 [facility] [place] [facility] [address] [id number] [place] [address]- 3326 13 Sep, 2008 [facility] [place] [facility] [address] [id number] [place] [address]- 7191 Aug, IMMUNIZATIONS No Known Immunizations SOCIAL HISTORY Never Assessed REASON FOR VISIT script correction PLAN OF CARE VITAL SIGNS MEDICATIONS Medication Instructions Dosage Frequency Start Date End Date Duration Status NovoLog Flexpen 100 UNIT/ML Subcutaneous 3 times a day with meals inject 20 units Sep, 30 days Active RESULTS No Results PROCEDURES No Known procedures INSTRUCTIONS MEDICATIONS ADMINISTERED No Known Medications MEDICAL (GENERAL) HISTORY Type Description Date Medical History hypertension Medical History type II diabetes Medical History hyperlipidemia Medical History chronic pain-knees Surgical History tonsillectomy 1957 Surgical History carderacs removed from both eyes 2017
--- OUTSIDE RECORDS SUMMARY | 2017-07-19 06:17 | XMS REPORT ---
Author SHADIA Nieto [facility] eClinical[employer] Address Unknown Phone Unavailable Care Team Providers Care Trombone Slide Assembler Name Role Phone SHADIA BLAIR CP Unavailable [...] Instructions Start Date End Date Status Dosage Aspirin [facility] [address]-93 81 MG Orally Once a day 1 tablet Levemir Flexpen [facility] [address]-26 100 unit/mL (3 mL) 2 times a day Mar 50 units Metformin HCl [facility] [address]-92 1000 MG Orally Twice a day Dec 22, 2014 1 tablet with meals Lisinopril-Hydrochlorothiazide [facility] 92393928158 20-12.5 TAKE TWO TABLETS BY MOUTH ONCE DAILY Fish Oil [facility] [address]-61 1000 MG Orally Once a day 1 capsule Metoprolol Tartrate [facility] 06295159080 50MG TAKE ONE TABLET BY MOUTH TWICE DAILY WITH MEALS Lovastatin [facility] 32012355655 20MG Once a day 1 tablet Amaryl [facility] [address]-82 4 MG Orally 2 times per day July 03, 2014 1 tablet Procedures Procedure Coding System Code Date VENIPUNCT, ROUTINE* CPT-4 93955 Jan 23, 2015 COMPLETE CBC W/AUTO DIFF WBC CPT-4 30850 Jan 23, 2015 Office Visit, Est Pt., Level 3 CPT-4 55872 Jan 23, 2015 COMPREHEN METABOLIC PANEL CPT-4 16121 Jan 23, 2015 LIPID PANEL CPT-4 81945 Jan 23, 2015 Vital Signs Date/Time: Jan 23, 2015 Temperature 98.0 F Weight 275 lbs Height 71 in BMI 38.35 Index Blood Pressure Diastolic 68 mmHg Blood Pressure Systolic 134 mmHg Cardiac Monitoring Heart Rate 78 bpm Results Name Result Date Reference Range Unit Abnormality Flag ROUTINE VENIPUNCTURE Summary Purpose eClinicalWorks Submission
--- OUTSIDE RECORDS SUMMARY | 2017-07-19 06:17 | XMS REPORT ---
Author Author SHADIA BLAIR Organization 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 092522780 Problem Other chronic pain G89.29 Active 15935239 Problem Type 2 diabetes mellitus without complications E11.9 Active 962206244 Problem Type 2 diabetes mellitus with hyperglycemia E11.65 Active 583607314 Problem Diabetes type 2, controlled E11.9 Active 93306344 Problem Controlled type 2 diabetes mellitus without complication, without long -term current use of insulin E11.9 Active 200731090 Problem skilled nursing current use of insulin Z79.4 Active 586124494 ALLERGIES No Information ENCOUNTERS Encounter Location Date Diagnosis [place] [address] [address] Jun, Diabetes type 2, controlled E11.9 ; Other chronic pain G89.29 ; Pain in left knee M25.562 and Pain in right knee M25.561 [place] [address] [place] [id number] [place] [address]- [address] May, [place] [address] [address] Feb, Other viral agents as the cause of diseases classified elsewhere B97.89 and Acute upper respiratory infection, unspecified J06.9 [place] [address] [address]- [address] Feb, [place] [address] [place] [id number] [place] [address] 24749- 3587 Feb, Type 2 diabetes mellitus without complications E11.9 and skilled nursing current use of insulin Z79.4 [facility] [address] [address] Dec, [facility] [address] [place] [id number] [place] [address] 7[address]- 1966 Dec, [facility] [id number] [place] [address] 80937- 9284 Nov, Type 2 diabetes mellitus without complications E11.9 and long term care pharmacist current use of insulin Z79.4 [facility] [address] [place] [id number] [place] [address] 22825- 4908 Nov, [facility] [address] [place] [id number] [place] [address]2012- 0817 Nov, Controlled type 2 diabetes mellitus without complication, without long-term current use of insulin E11.9 [facility] [id number] [place] [address] 80442- 7777 Nov, Controlled type 2 diabetes mellitus without complication, without long-term current use of insulin E11.9 [facility] [id number] [place] [address] 69884- 0903 Nov, Type 2 diabetes mellitus with other circulatory complications E11.59 [facility] [id number] [place] [address] 54828- 7608 Oct, Type 2 diabetes mellitus with hyperglycemia E11.65 [facility] [id number] [place] [address] 11246- 1889 Oct, [facility] [id number] [address] Oct, [facility] [id number] [place] [address] 42206- 3637 Oct, Type 2 diabetes mellitus without complications E11.9 [facility] [address] [address] 2[address] Sep, Type 2 diabetes mellitus with hyperglycemia E11.65 [facility] [address] [place] [id number] [place] [address] 60188- 1765 Sep, Type 2 diabetes mellitus with other circulatory complications E11.59 [place] [address] [place] [id number] [place] [address] 39241- 3825 Aug, [place] [address] [place] [id number] [place] [address] 507837- 1539 July, Controlled type 2 diabetes mellitus without complication, without long-term current use of insulin E11.9 [place] [address] [place] [id number] [place] [address] 03313- 2771 May, [place] [address] [place] [id number] [place] [address] 78036- 8331 Feb, Controlled type 2 diabetes mellitus without complication, without long-term current use of insulin E11.9 [place] [address] [place] [id number] [place] [address] 74748- 5247 Jan, Controlled type 2 diabetes mellitus without complication, without long-term current use of insulin E11.9 [place] [id number] [place] [address] 59752- 5993 Jan, Type 2 diabetes mellitus with hyperglycemia E11.65 and skilled nursing current use of insulin Z79.4 [place] [id number] [place] [address] 84605- 9521 Nov, Diabetes type 2, controlled E11.9 [place] [id number] [place] [address] 60150- 5483 Aug, Type 2 diabetes mellitus with other circulatory complications E11.59 and Hypertension, essential I10 [place] [id number] [place] [address] 19297- 5804 July, Type 2 diabetes mellitus with hyperglycemia E11.65 and Hypertension, benign I10 [place] [id number] [place] [address] 32187- 2370 May, Type 2 diabetes mellitus with other circulatory complications E11.59 [place] [address] [place] [id number] [place] [address] 98458- 7273 Apr, Diabetes type 2, controlled E11.9 [facility] [address] [address] 1817 Jan, Type 2 diabetes mellitus with other circulatory complications E11.59 [facility] [address] [address]- 7616 Dec, Type 2 diabetes mellitus with other circulatory complications E11.59 [facility] [address] [place] [address] 08625- 0986 Aug, Diabetes 250.00 [facility] [id number] [place] [address] 73156- 9506 July, Diabetes 250.00 [facility] [address] [place] [id number] [place] [address] 411153- 5022 Jun, [facility] [id number] [place] [address] 468824- 2249 Jun, [facility] [id number] [address]- 9137 Jun, [facility] [id number], [place] [address]- 8480 Jun, [facility] [id number], [place] [address]- 0090 Jun, [facility] [address], [place] [address]- 5839 May, [facility] [id number], [place] [address]- 3145 May, [facility] [id number], [place] [address]- 1724 Apr, [facility] [id number], [place] [address]- 1760 Apr, [facility] [address], [place] [address]- [address] Mar, [facility] [place] [facility] [address] [id number] [place] [address]- 1698 16 Mar, 2014 [facility] [place] [facility] [address] [id number] [place] [address]- 0616 29 Feb, 2014 [facility] [place] [facility] [address] [id number] [place] [address]- 7596 Feb, [facility] [place] [facility] [address] [id number] [place] [address]- 4562 Feb, [facility] [place] [facility] [address] [id number] [place] [address]- 5991 Feb, [facility] [place] [facility] [address] [id number] [place] [address]- 7680 15 Feb, 2014 [facility] [place] [facility] [address] [id number] [place] [address]- 8869 15 Feb, 2014 [facility] [place] [facility] [address] [id number] [place] [address]- 8668 Dec, [facility] [place] [facility] [address] [id number] [place] [address]- 7918 13 Dec, 2013 [facility] [place] [facility] [address] [id number] [place] [address]- 5425 29 Nov, 2013 [facility] [place] [facility] [address] [id number] [place] [address]- 9524 29 Nov, 2013 [facility] [place] [facility] [address] [id number] [place] [address]- 2543 29 Sep, 2013 [facility] [place] [facility] [address] [id number] [place] [address] 254 29 Sep, 2013 [facility] [place] [facility] [address] [id number] [place] [address]- 2546 17 Nov, 2013 [facility] [place] [facility] [address] [id number] [place] [address]- 2546 17 Nov, 2013 [facility] [place] [facility] [address] [id number] [place] [address]- 2204 Nov, [facility] [place] [facility] [address] [id number] [place] [address]- 2655 Nov, [facility] [place] [facility] [address] [id number] [place] [address]- 8171 Aug, [facility] [place] [facility] [address] [id number] [place] [address]- 3919 Aug, [facility] [place] [facility] [address] [id number] [place] [address]- 9859 Aug, [facility] [place] [facility] [address] [id number] [place] [address]- 5081 Aug, [facility] [place] [facility] [address] [id number] [place] [address]- 7469 July, [facility] [place] [facility] [address] [id number] [place] [address]- 1434 July, [facility] [place] [facility] [address] [id number] [place] [address]- 4531 Jun, [facility] [place] [facility] [address] [id number] [place] [address]- 5193 Jun, [facility] [place] [facility] [address] [id number] [place] [address]- 1425 Jun, [facility] [place] [facility] [address] [id number] [place] [address]- 3557 Jun, [facility] [place] [facility] [address] [id number] [address]- 9668 May, [facility] [place] [facility] [address] [id number] [place] [address]- 8771 May, [facility] [place] [facility] [address] [id number] [place] [address]- 2834 Apr, [facility] [place] [facility] [address] [id number] [place] [address]- 0715 Apr, [facility] [place] [facility] [address] [id number] [place] [address]- 7524 Mar, [facility] [address] [id number] [place] [address]- 6548 Mar, [facility] [place] [facility] [address] [id number] [place] [address]- 8867 Mar, [facility] [address] [id number] [place] [address]- 8429 Mar, [facility] [place] [facility] [address] [id number] [place] [address]- 4957 Feb, [facility] [place] [facility] [address] [id number] [place] [address]- 9467 Feb, [facility] [place] [facility] [address] [id number] [place] [address]- 7906 Jan, [facility] [address] [id number] [place] [address]- 5579 Jan, [facility] [place] [facility] [address] [id number] [place] [address]- 2274 Dec, [facility] [place] [facility] [address] [id number] [place] [address]- 4638 Dec, [facility] [place] [facility] [address] [id number] [place] [address]- 2281 Dec, [facility] [place] [facility] [address] [id number] [place] [address]- 2504 Dec, [facility] [place] [facility] [address] [id number] [place] [address]- 4967 Nov, [facility] [place] [facility] [address] [id number] [place] [address]- 6963 Sep, [facility] [place] [facility] [address] [id number] [place] [address]- 2546 Sep, [facility] [place] [facility] [address] [id number] [place] [address]- 1590 Aug, [facility] [place] [facility] [address] [id number] [place] [address]- 8791 July, [facility] [address] [id number] [place] [address]- 9978 Jun, [facility] [address] [id number] [place] 3397 May, [facility] [address] [id number] [place] [address]- 5389 May, [facility] [address] [id number] [place] [address]- 8551 May, [facility] [address] [id number] [place] [address]- 1112 May, [facility] [address] [id number] [place] [address]- 4486 May, [facility] [address] [id number] [place] [address]- 8597 Feb, [facility] [address] [id number] [place] [address]- 7651 Feb, [facility] [address] [id number] [place] [address]- 1653 Jan, [facility] [address] [id number] [place] [address]- 5763 Jan, [facility] [address] [id number] [place] [address]- 2750 Jan, [facility] [place] [facility] [address] [id number] [place] [address]- 9249 Jan, [facility] [place] [facility] [address] [id number] [place] [address]- 4662 Jan, [facility] [place] [facility] [address] [id number] [place] 2217 Jan, [facility] [place] [facility] [address] [id number] [place] [address]- 6669 Dec, [facility] [place] [facility] [address] [id number] [place] [address]- 3196 18 Dec, 2011 [facility] [place] [facility] [address] [id number] [place] [address]- 0326 18 Dec, 2011 [facility] [place] [facility] [address] [id number] [place] [address]- 2092 18 Dec, 2011 [facility] [place] [facility] [address] [id number] [place] [address]- 1105 10 Dec, 2011 [facility] [place] [facility] [address] [id number] [place] [address]- 7099 26 Nov, 2011 [facility] [place] [facility] [address] [id number] [place] [address]- 0443 18 Nov, 2011 [facility] [place] [facility] [address] [id number] [place] [address]- 5634 13 Nov, 2011 [facility] [place] [facility] [address] [id number] [place] [address]- 6340 Sep, [facility] [place] [facility] [address] [id number] [place] [address]- 1241 Aug, [facility] [place] [facility] [address] [id number] [place] [address]- 8910 Aug, [facility] [place] [facility] [address] [id number] [place] [address]- 6000 May, [facility] [place] [facility] [address] [id number] [place] [address]- 2935 Apr, [facility] [place] [facility] [address] [id number] [place] [address]- 8885 Mar, [facility] [place] [facility] [address] [id number] [place] [address]- 8619 Mar, [facility] [place] [facility] [address] [id number] [place] [address]- 4845 Dec, [facility] [place] [facility] [address] [id number] [place] [address]- 8660 11 Sep, 2010 [facility] [address] [id number] [place] [address]- 5252 2010 [facility] [place] [facility] [address] [id number] [place] 3406 2010 [facility] [address] [id number] [place] [address]- 7238 11 Jan, 2010 [facility] [place] [facility] [address] [id number] [place] [address]- 5602 08 Jan, 2010 [facility] [address] [id number] [place] [address]- 1537 10 Nov, 2009 [facility] [place] [facility] [address] [id number] [place] [address]- 0797 15 Feb, 2009 [facility] [place] [facility] [address] [id number] [place] [address]- 3053 15 Feb, 2009 [facility] [address] [id number] [place] [address]- 6285 16 Jan, 2009 [facility] [place] [facility] [address] [id number] [place] [address]- 6380 16 Jan, 2009 [facility] [address] [id number] [place] [address]- 1589 13 Dec, 2008 [facility] [place] [facility] [address] [id number] [place] [address]- 7760 13 Dec, 2008 [facility] [place] [facility] [address] [id number] [place] [address] 2540 15 Nov, 2008 [facility] [place] [facility] [address] [id number] [place] [address]- 6486 17 Oct, 2008 [facility] [place] [facility] [address] [id number] [place] [address]- 2316 13 Sep, 2008 [facility] [place] [facility] [address] [id number] [place] [address]- 0874 Aug, IMMUNIZATIONS No Known Immunizations SOCIAL HISTORY Never Assessed REASON FOR VISIT 1 wk f/u DM Ed PLAN OF CARE VITAL SIGNS MEDICATIONS No Known Medications RESULTS No Results PROCEDURES No Known procedures INSTRUCTIONS MEDICATIONS ADMINISTERED No Known Medications MEDICAL (GENERAL) HISTORY Type Description Date Medical History hypertension Medical History type II diabetes Medical History hyperlipidemia Medical History chronic pain-knees Surgical History tonsillectomy 1957 Surgical History carderacs removed from both eyes 2017
--- OUTSIDE RECORDS SUMMARY | 2017-07-19 06:18 | XMS REPORT ---
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 852200345 Problem Other chronic pain G89.29 Active 63778834 Problem Type 2 diabetes mellitus without complications E11.9 Active 370862192 Problem Type 2 diabetes mellitus with hyperglycemia E11.65 Active 353234177 Problem Diabetes type 2, controlled E11.9 Active 51751885 Problem Controlled type 2 diabetes mellitus without complication, without long -term current use of insulin E11.9 Active 339948112 Problem halfway current use of insulin Z79.4 Active 214896764 ALLERGIES No Information ENCOUNTERS Encounter Location Date Diagnosis [place] [address] [address] Jun, Diabetes type 2, controlled E11.9 ; Other chronic pain G89.29 ; Pain in left knee M25.562 and Pain in right knee M25.561 [place] [address] [place] [id number] [place] [address]99- 2885 May, [place] [address] [address]- 86[address] Feb, Other viral agents as the cause of diseases classified elsewhere B97.89 and Acute upper respiratory infection, unspecified J06.9 [place] [address] 9[address]47- 9340 Feb, [place] [address] [place] [id number] [place] [address] 10762- 7373 Feb, Type 2 diabetes mellitus without complications E11.9 and halfway current use of insulin Z79.4 [facility] [address] [address] Dec, [facility] [address] [place] [id number] [place] [address] 24247- 9746 Dec, [facility] [id number] [place] [address] 61551- 2524 Nov, Type 2 diabetes mellitus without complications E11.9 and 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 insulin Z79.4 [facility] [address] [place] [id number] [place] [address] 48763- 9522 Nov, [facility] [address] [place] [id number] [place] [address] 96446- 7452 Nov, Controlled type 2 diabetes mellitus without complication, without long-term current use of insulin E11.9 [facility] [id number] [place] [address] 23155- 4167 Nov, Controlled type 2 diabetes mellitus without complication, without long-term current use of insulin E11.9 [facility] [id number] [place] [address] 42614- 8204 Nov, Type 2 diabetes mellitus with other circulatory complications E11.59 [facility] [id number] [place] [address] 38126- 9325 Oct, Type 2 diabetes mellitus with hyperglycemia E11.65 [facility] [id number] [place] [address] 66760- 8364 Oct, [facility] [address], [place] [address] 77[address] Oct, [facility] [id number] [place] [address] 86846- 2984 Oct, Type 2 diabetes mellitus without complications E11.9 [facility] [address], [place] [address] 0768 Sep, Type 2 diabetes mellitus with hyperglycemia E11.65 [facility] [address] [place] [id number] [place] [address] 68882- 5158 Sep, Type 2 diabetes mellitus with other circulatory complications E11.59 [place] [address] [place] [id number] [place] [address] 57621- 2058 Aug, [place] [address] [place] [id number] [place] [address] 363656- 8847 July, Controlled type 2 diabetes mellitus without complication, without long-term current use of insulin E11.9 [place] [address] [place] [id number] [place] [address] 10782- 5822 May, [place] [address] [place] [id number] [place] [address] 01621- 2970 Feb, Controlled type 2 diabetes mellitus without complication, without long-term current use of insulin E11.9 [place] [address] [place] [id number] [place] [address] 35797- 7700 Jan, Controlled type 2 diabetes mellitus without complication, without long-term current use of insulin E11.9 [place] [id number] [place] [address] 07159- 6884 Jan, Type 2 diabetes mellitus with hyperglycemia E11.65 and halfway current use of insulin Z79.4 [place] [id number] [place] [address] 96867- 7045 Nov, Diabetes type 2, controlled E11.9 [place] [id number] [place] [address] 46780- 9945 Aug, Type 2 diabetes mellitus with other circulatory complications E11.59 and Hypertension, essential I10 [place] [id number] [place] [address] 88003- 6686 July, Type 2 diabetes mellitus with hyperglycemia E11.65 and Hypertension, benign I10 [place] [id number] [place] [address] 13641- 0892 May, Type 2 diabetes mellitus with other circulatory complications E11.59 [place] [address] [place] [id number] [place] [address] 30951- 2705 Apr, Diabetes type 2, controlled E11.9 [facility] [address], [place] [address] Jan, Type 2 diabetes mellitus with other circulatory complications E11.59 [facility] [address], [place] [address] 7706 Dec, Type 2 diabetes mellitus with other circulatory complications E11.59 [facility] [address] [place] [address] 37015- 2246 Aug, Diabetes 250.00 [facility] [address] [place] [address] 73088- 8159 July, Diabetes 250.00 [facility] [address] [place] [id number] [place] [address] 778428- 8062 Jun, [facility] [id number] [place] [address] 315400- 0067 Jun, [facility] [address] [address]- 4018 Jun, [facility] [address], [place] [address]- 5737 Jun, [facility] [address], [place] [address]- 8456 Jun, [facility] [address] [address]- 4435 May, [facility] [address] [place] [address]- 5474 May, [facility] [address], [place] [address]- 4052 Apr, [facility] [address], [place] [address]- 2929 Apr, [facility] [address] [address]- 5276 Mar, [facility] [place] [facility] [address] [id number] [place] [address] 1937 16 Mar, 2014 [facility] [place] [facility] [address] [id number] [place] [address]- 5498 29 Feb, 2014 [facility] [place] [facility] [address] [id number] [place] [address]- 3926 Feb, [facility] [place] [facility] [address] [id number] [place] [address]- 2436 Feb, [facility] [place] [facility] [address] [id number] [place] [address]- 1171 Feb, [facility] [place] [facility] [address] [id number] [place] [address]- 7734 15 Feb, 2014 [facility] [place] [facility] [address] [id number] [place] [address]- 5586 15 Feb, 2014 [facility] [place] [facility] [address] [id number] [place] [address]- 8137 Dec, [facility] [place] [facility] [address] [id number] [place] [address]- 7139 13 Dec, 2013 [facility] [place] [facility] [address] [id number] [place] [address]- 1898 29 Nov, 2013 [facility] [place] [facility] [address] [id number] [place] [address]- 1691 29 Nov, 2013 [facility] [place] [facility] [address] [id number] [place] [address]- 2540 29 Sep, 2013 [facility] [place] [facility] [address] [id number] [place] [address] 2547 29 Sep, 2013 [facility] [place] [facility] [address] [id number] [place] [address]- 2546 17 Nov, 2013 [facility] [place] [facility] [address] [id number] [place] [address]- 2546 17 Nov, 2013 [facility] [place] [facility] [address] [id number] [place] [address]- 0479 Nov, [facility] [place] [facility] [address] [id number] [place] [address]- 8548 Nov, [facility] [place] [facility] [address] [id number] [place] [address]- 2882 Aug, [facility] [place] [facility] [address] [id number] [place] [address]- 3773 Aug, [facility] [place] [facility] [address] [id number] [place] [address]- 6588 Aug, [facility] [place] [facility] [address] [id number] [place] [address]- 3020 Aug, [facility] [place] [facility] [address] [id number] [place] [address]- 8946 July, [facility] [place] [facility] [address] [id number] [place] [address]- 6042 July, [facility] [place] [facility] [address] [id number] [place] [address]- 2748 Jun, [facility] [place] [facility] [address] [id number] [place] [address]- 5147 Jun, [facility] [place] [facility] [address] [id number] [place] [address]- 7229 Jun, [facility] [place] [facility] [address] [id number] [place] [address]- 3540 Jun, [facility] [place] [facility] [address] [id number] [address]- 0775 May, [facility] [place] [facility] [address] [id number] [place] [address]- 5473 May, [facility] [place] [facility] [address] [id number] [place] [address]- 9122 Apr, [facility] [place] [facility] [address] [id number] [place] [address]- 0163 Apr, [facility] [place] [facility] [address] [id number] [place] [address]- 2037 Mar, [facility] [address] [id number] [place] [address]- 5042 Mar, [facility] [place] [facility] [address] [id number] [place] [address]- 0102 Mar, [facility] [address] [id number] [place] [address]- 8793 Mar, [facility] [place] [facility] [address] [id number] [place] [address]- 3742 Feb, [facility] [place] [facility] [address] [id number] [place] [address]- 7487 Feb, [facility] [place] [facility] [address] [id number] [place] [address]- 4395 Jan, [facility] [address] [id number] [place] [address]- 8499 Jan, [facility] [place] [facility] [address] [id number] [place] [address]- 1608 Dec, [facility] [place] [facility] [address] [id number] [place] [address]- 0790 Dec, [facility] [place] [facility] [address] [id number] [place] [address]- 8316 Dec, [facility] [place] [facility] [address] [id number] [place] [address]- 7438 Dec, [facility] [place] [facility] [address] [id number] [place] [address]- 4762 Nov, [facility] [place] [facility] [address] [id number] [place] [address]- 6124 Sep, [facility] [place] [facility] [address] [id number] [place] [address]- 2546 Sep, [facility] [place] [facility] [address] [id number] [place] [address]- 8914 Aug, [facility] [place] [facility] [address] [id number] [place] [address]- 0839 July, [facility] [address] [id number] [place] [address]- 7304 Jun, [facility] [address] [id number] [place] 4811 May, [facility] [address] [id number] [place] [address]- 3781 May, [facility] [address] [id number] [place] [address]- 6540 May, [facility] [address] [id number] [place] [address]- 9133 May, [facility] [address] [id number] [place] [address]- 6932 May, [facility] [address] [id number] [place] [address]- 3987 Feb, [facility] [address] [id number] [place] [address]- 6708 Feb, [facility] [address] [id number] [place] [address]- 4051 Jan, [facility] [address] [id number] [place] [address]- 1195 Jan, [facility] [address] [id number] [place] [address]- 9074 Jan, [facility] [place] [facility] [address] [id number] [place] [address]- 7051 Jan, [facility] [place] [facility] [address] [id number] [place] [address]- 0416 Jan, [facility] [place] [facility] [address] [id number] [place] 1137 Jan, [facility] [place] [facility] [address] [id number] [place] [address]- 4433 Dec, [facility] [place] [facility] [address] [id number] [place] [address]- 8750 18 Dec, 2011 [facility] [place] [facility] [address] [id number] [place] [address]- 9476 18 Dec, 2011 [facility] [place] [facility] [address] [id number] [place] [address]- 9714 18 Dec, 2011 [facility] [place] [facility] [address] [id number] [place] [address]- 7956 10 Dec, 2011 [facility] [place] [facility] [address] [id number] [place] [address]- 4914 26 Nov, 2011 [facility] [place] [facility] [address] [id number] [place] [address]- 8195 18 Nov, 2011 [facility] [place] [facility] [address] [id number] [place] [address]- 3030 13 Nov, 2011 [facility] [place] [facility] [address] [id number] [place] [address]- 3222 Sep, [facility] [place] [facility] [address] [id number] [place] [address]- 6620 Aug, [facility] [place] [facility] [address] [id number] [place] [address]- 5526 Aug, [facility] [place] [facility] [address] [id number] [place] [address]- 7420 May, [facility] [place] [facility] [address] [id number] [place] [address]- 3966 Apr, [facility] [place] [facility] [address] [id number] [place] [address]- 7451 Mar, [facility] [place] [facility] [address] [id number] [place] [address]- 3178 Mar, [facility] [place] [facility] [address] [id number] [place] [address]- 5316 Dec, [facility] [place] [facility] [address] [id number] [place] [address]- 0883 11 Sep, 2010 [facility] [address] [id number] [place] [address]- 5367 2010 [facility] [place] [facility] [address] [id number] [place] 5016 2010 [facility] [address] [id number] [place] [address]- 1219 11 Jan, 2010 [facility] [place] [facility] [address] [id number] [place] [address]- 9111 08 Jan, 2010 [facility] [address] [id number] [place] [address]- 5960 10 Nov, 2009 [facility] [place] [facility] [address] [id number] [place] [address]- 7457 15 Feb, 2009 [facility] [place] [facility] [address] [id number] [place] [address]- 6046 15 Feb, 2009 [facility] [address] [id number] [place] [address]- 3360 16 Jan, 2009 [facility] [place] [facility] [address] [id number] [place] [address]- 0341 16 Jan, 2009 [facility] [address] [id number] [place] [address]- 0870 13 Dec, 2008 [facility] [place] [facility] [address] [id number] [place] [address]- 9774 13 Dec, 2008 [facility] [place] [facility] [address] [id number] [place] [address] 2549 15 Nov, 2008 [facility] [place] [facility] [address] [id number] [place] [address]- 3112 17 Oct, 2008 [facility] [place] [facility] [address] [id number] [place] [address]- 1396 13 Sep, 2008 [facility] [place] [facility] [address] [id number] [place] [address]- 1744 Aug, IMMUNIZATIONS No Known Immunizations SOCIAL HISTORY Never Assessed REASON FOR VISIT insulin samples PLAN OF CARE VITAL SIGNS MEDICATIONS No Known Medications RESULTS No Results PROCEDURES No Known procedures INSTRUCTIONS MEDICATIONS ADMINISTERED No Known Medications MEDICAL (GENERAL) HISTORY Type Description Date Medical History hypertension Medical History type II diabetes Medical History hyperlipidemia Medical History chronic pain-knees Surgical History tonsillectomy 1957 Surgical History carderacs removed from both eyes 2017
--- OUTSIDE RECORDS SUMMARY | 2017-07-19 06:18 | XMS REPORT ---
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 867115339 Problem Other chronic pain G89.29 Active 75357351 Problem Type 2 diabetes mellitus without complications E11.9 Active 770658572 Problem Type 2 diabetes mellitus with hyperglycemia E11.65 Active 310673920 Problem Diabetes type 2, controlled E11.9 Active 62033643 Problem Controlled type 2 diabetes mellitus without complication, without long -term current use of insulin E11.9 Active 205854338 Problem USP current use of insulin Z79.4 Active [id number] ALLERGIES No Known Allergies ENCOUNTERS Encounter Location Date Diagnosis [place] [address] [address] Jun, Diabetes type 2, controlled E11.9 ; Other chronic pain G89.29 ; Pain in left knee M25.562 and Pain in right knee M25.561 [place] [id number] [place] [address]- 0875 May, [place] [address] [place] [id number] [place] [address] 05895- 2612 Feb, Other viral agents as the cause of diseases classified elsewhere B97.89 and Acute upper respiratory infection, unspecified J06.9 [place] [address] [place] [id number] [place] [address] 07979- 6381 Feb, [place] [address] [place] [id number] [place] [address] 47164- 8029 Feb, Type 2 diabetes mellitus without complications E11.9 and 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 [facility] [address], [place] [address] 2144 Dec, [facility] [address] [place] [id number] [place] [address] 46911- 3866 Dec, [facility] [id number] [place] [address] 61950- 7379 Nov, Type 2 diabetes mellitus without complications E11.9 and USP current use of insulin Z79.4 [facility] [id number] [place] [address] 34537- 2829 Nov, [facility] [address] [place] [id number] [place] [address] 81744- 6734 Nov, Controlled type 2 diabetes mellitus without complication, without long-term current use of insulin E11.9 [facility] [id number] [place] [address] 79749- 9309 Nov, Controlled type 2 diabetes mellitus without complication, without long-term current use of insulin E11.9 [facility] [id number] [place] [address] 03681- 0163 Nov, Type 2 diabetes mellitus with other circulatory complications E11.59 [facility] [address], [place] [address] 5426 Oct, Type 2 diabetes mellitus with hyperglycemia E11.65 [facility] [address], [place] [address] 7369 Oct, [facility] [address], [place] [address] 8951 Oct, [facility] [id number] [place] [address] 80647- 9821 Oct, Type 2 diabetes mellitus without complications E11.9 [facility] [address], [place] [address] 7973 Sep, Type 2 diabetes mellitus with hyperglycemia E11.65 [facility] [id number] [place] [address] 29433- 1112 Sep, Type 2 diabetes mellitus with other circulatory complications E11.59 [place] [address] [place] [id number] [place] [address] 37180- 7401 Aug, [place] [address] [place] [id number] [place] [address] 60419- 4589 July, Controlled type 2 diabetes mellitus without complication, without long-term current use of insulin E11.9 [place] [address] [place] [id number] [place] [address] 54863- 8929 May, [place] [address] [place] [id number] [place] [address] 05775- 0066 Feb, Controlled type 2 diabetes mellitus without complication, without long-term current use of insulin E11.9 [place] [address] [place] [id number] [place] [address] 52612- 7694 Jan, Controlled type 2 diabetes mellitus without complication, without long-term current use of insulin E11.9 [place] [id number] [place] [address] 92316- 0537 Jan, Type 2 diabetes mellitus with hyperglycemia E11.65 and 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 [place] [id number] [place] [address] 94578- 5773 Nov, Diabetes type 2, controlled E11.9 [place] [id number] [place] [address] 93935- 0531 Aug, Type 2 diabetes mellitus with other circulatory complications E11.59 and Hypertension, essential I10 [place] [id number] [place] [address] 36351- 3806 July, Type 2 diabetes mellitus with hyperglycemia E11.65 and Hypertension, benign I10 [place] [id number] [place] [address] 58865- 8260 May, Type 2 diabetes mellitus with other circulatory complications E11.59 [place] [address] [place] [id number] [place] [address] 27179- 8037 Apr, Diabetes type 2, controlled E11.9 [facility] [address], [place] [address] 3774 Jan, Type 2 diabetes mellitus with other circulatory complications E11.59 [facility] [address], [place] [address]- 5996 Dec, Type 2 diabetes mellitus with other circulatory complications E11.59 [facility] [address] [place] [id number] [place] [address] 05390- 9942 Aug, Diabetes 250.00 [facility] [id number] [place] [address] 77767- 7862 July, Diabetes 250.00 [facility] [address] [place] [id number] [place] [address] 42317- 0248 Jun, [facility] [address] [place] [id number] [place] [address] 62397- 7998 Jun, [facility] [address] [place] [id number] [address]- 1312 Jun, [facility] [id number] [place] [address] 00577- 7220 Jun, [facility] [address], [place] [address]- 7434 Jun, [facility] [address], [place] [address]- 8075 May, [facility] [address], [place] [address]- 6967 May, [facility] [address], [place] [address]- 2801 Apr, [facility] [address], [place] [address] 1956 Apr, [facility] [address], [place] [address]- 8236 Mar, [facility] [place] [facility] [address] [id number] [place] [address]- 3704 16 Mar, 2014 [facility] [place] [facility] [address] [id number] [place] [address]- 8520 29 Feb, 2014 [facility] [place] [facility] [address] [id number] [place] [address]- 5486 Feb, [facility] [place] [facility] [address] [id number] [place] [address]- 0647 Feb, [facility] [place] [facility] [address] [id number] [place] [address]- 7818 Feb, [facility] [place] [facility] [address] [id number] [place] [address]- 9030 15 Feb, 2014 [facility] [place] [facility] [address] [id number] [place] [address]- 4318 Feb, [facility] [place] [facility] [address] [id number] [place] [address]- 3923 Dec, [facility] [place] [facility] [address] [id number] [place] [address]- 2737 13 Dec, 2013 [facility] [place] [facility] [address] [id number] [place] [address]- 0253 29 Nov, 2013 [facility] [place] [facility] [address] [id number] [place] [address]- 9470 29 Nov, 2013 [facility] [place] [facility] [address] [id number] [place] [address]- 2541 29 Sep, 2013 [facility] [place] [facility] [address] [id number] [place] [address] 2545 29 Sep, 2013 [facility] [place] [facility] [address] [id number] [place] [address] 2546 17 Sep, 2013 [facility] [place] [facility] [address] [id number] [place] [address]- 2546 17 Sep, 2013 [facility] [place] [facility] [address] [id number] [place] [address]- 3617 Nov, [facility] [place] [facility] [address] [id number] [place] [address]- 3932 Nov, [facility] [place] [facility] [address] [id number] [place] [address]- 6915 Aug, [facility] [place] [facility] [address] [id number] [place] [address]- 2325 Aug, [facility] [place] [facility] [address] [id number] [place] [address]- 1198 Aug, [facility] [place] [facility] [address] [id number] [place] [address]- 3689 Aug, [facility] [place] [facility] [address] [id number] [place] [address]- 1103 July, [facility] [place] [facility] [address] [id number] [place] [address]- 5374 July, [facility] [place] [facility] [address] [id number] [place] [address]- 2881 Jun, [facility] [place] [facility] [address] [id number] [place] [address]- 1958 Jun, [facility] [place] [facility] [address] [id number] [place] [address]- 4511 Jun, [facility] [place] [facility] [address] [id number], [place] [address]- 2886 Jun, [facility] [place] [facility] [address] [id number], [place] [address]- 6524 May, [facility] [place] [facility] [address] [id number] [place] [address]- 8132 May, [facility] [place] [facility] [address] [id number] [place] [address]- 5935 Apr, [facility] [place] [facility] [address] [id number] [place] [address]- 4383 Apr, [facility] [place] [facility] [address] [id number] [place] [address]- 3736 Mar, [facility] [address] [id number] [place] [address]- 0434 Mar, [facility] [address] [id number] [place] [address]- 8054 Mar, [facility] [address] [id number] [place] [address]- 8660 Mar, [facility] [address] [id number] [place] [address]- 3675 Feb, [facility] [address] [id number] [place] [address]- 9275 Feb, [facility] [address] [id number] [place] [address]- 5310 Jan, [facility] [address] [id number] [place] [address]- 6353 Jan, [facility] [address] [id number] [place] [address]- 0310 Dec, [facility] [address] [id number] [place] [address]- 5965 Dec, [facility] [address] [id number] [place] [address]- 5561 Dec, [facility] [address] [id number] [place] [address]- 3959 Dec, [facility] [address] [id number] [place] [address]- 3148 Nov, [facility] [place] [facility] [address] [id number] [place] [address]- 8017 Sep, [facility] [place] [facility] [address] [id number] [place] [address]- 2546 Sep, [facility] [address] [id number] [place] [address]- 8971 Aug, [facility] [place] [facility] [address] [id number] [place] [address]- 0625 July, [facility] [place] [facility] [address] [id number] [place] [address]- 6220 Jun, [facility] [place] [facility] [address] [id number] [place] 2211 May, [facility] [place] [facility] [address] [id number] [place] [address]- 4535 May, [facility] [address] [id number] [place] [address]- 3240 May, [facility] [place] [facility] [address] [id number] [place] [address]- 5898 May, [facility] [address] [id number] [place] [address]- 3061 May, [facility] [address] [id number] [place] [address]- 3016 Feb, [facility] [place] [facility] [address] [id number] [place] [address]- 5464 Feb, [facility] [place] [facility] [address] [id number] [place] [address]- 7219 Jan, [facility] [place] [facility] [address] [id number] [place] [address]- 1849 Jan, [facility] [place] [facility] [address] [id number], [place] [address]- 1498 Jan, [facility] [place] [facility] [address] [id number] [place] [address]- 4229 Jan, [facility] [place] [facility] [address] [id number] [place] 1025 Jan, [facility] [place] [facility] [address] [id number] [place] 8833 Jan, [facility] [place] [facility] [address] [id number], [place] [address]- 8695 18 Dec, 2011 [facility] [place] [facility] [address] [id number] [place] [address]- 4603 18 Dec, 2011 [facility] [place] [facility] [address] [id number] [place] [address]- 5123 18 Dec, 2011 [facility] [place] [facility] [address] [facility] [id number] [place] [address]- 4928 18 Dec, 2011 [facility] [place] [facility] [address] [id number] [place] [address]- 2344 10 Dec, 2011 [facility] [place] [facility] [address] [id number] [place] [address]- 2651 26 Nov, 2011 [facility] [place] [facility] [address] [facility] [id number] [place] [address]- 7321 18 Nov, 2011 [facility] [place] [facility] [address] [facility] [id number] [place] [address]- 9302 13 Nov, 2011 [facility] [place] [facility] [address] [facility] [id number] [place] [address]- 4194 Sep, [facility] [place] [facility] [address] [facility] [id number] [place] [address]- 7252 Aug, [facility] [place] [facility] [address] [facility] [id number] [place] [address]- 0266 Aug, [facility] [place] [facility] [address] [facility] [id number], [place] [address]- 6213 May, [facility] [place] [facility] [address] [facility] [id number], [place] [address]- 3414 Apr, [facility] [place] [facility] [address] [id number] [place] [address]- 9300 Mar, [facility] [place] [facility] [address] [facility] [id number] [place] [address]- 3523 Mar, [facility] [place] [facility] [address] [facility] [id number] [place] [address]- 9371 Dec, [facility] [place] [facility] [address] [id number] [place] [address]- 5664 11 Sep, 2010 [facility] [place] [facility] [address] [id number] [place] [address]- 4457 2010 [facility] [place] [facility] [address] [id number] [place] [address]16 2010 [facility] [place] [facility] [address] [id number] [place] [address]- 6713 11 Jan, 2010 [facility] [place] [facility] [address] [id number] [place] [address]- 3322 08 Jan, 2010 [facility] [place] [facility] [address] [id number] [place] [address]- 4272 10 Nov, 2009 [facility] [place] [facility] [address] [id number] [place] [address]- 2799 15 Feb, 2009 [facility] [place] [facility] [address] [id number] [place] [address]- 3930 15 Feb, 2009 [facility] [place] [facility] [address] [id number] [place] [address]- 2762 16 Jan, 2009 [facility] [place] [facility] [address] [id number] [place] [address]- 7535 16 Jan, 2009 [facility] [place] [facility] [address] [facility] [id number] [place] [address]- 9041 13 Dec, 2008 [facility] [place] [facility] [address] [id number] [place] [address]- 1246 13 Dec, 2008 [facility] [place] [facility] [address] [id number] [place] [address] 2544 15 Nov, 2008 [facility] [place] [facility] [address] [id number] [place] [address]- 2521 17 Oct, 2008 [facility] [place] [facility] [address] [id number] [place] [address]- 0176 13 Sep, 2008 [facility] [place] [facility] [address] [id number] [place] [address]- 7310 Aug, IMMUNIZATIONS No Known Immunizations SOCIAL HISTORY Never Assessed REASON FOR VISIT Diabetes- Duane Silverio RN PLAN OF CARE Activity Details Follow Up 4 Weeks Reason:dm2 ooc VITAL SIGNS Height 71 in 2016-10-21 Weight 297 lbs 2016-10-21 Temperature 98.0 degrees Fahrenheit 2016-10-21 Heart Rate 88 bpm 2016-10-21 Respiratory Rate 18 2016-10-21 BMI 41.42 kg/m2 2016-10-21 Blood pressure systolic 172 mmHg 2016-10-21 Blood pressure diastolic 102 mmHg 2016-10-21 MEDICATIONS Medication Instructions Dosage Frequency Start Date End Date Duration Status Fish Oil 1000 MG Orally Once a day 1 capsule 24h Active Lisinopril-Hydrochlorothiazide 20-12.5MG TAKE TWO TABLETS BY MOUTH ONCE DAILY 90 Active Amaryl 4 MG Orally 2 times per day 1 tablet 90 Active Amlodipine Besylate 5 mg Orally Once a day 1 tablet 24h July, Active Aspirin 81 MG Orally Once a day 1 tablet 24h Active Metoprolol Tartrate 50MG TAKE ONE TABLET BY MOUTH TWICE DAILY WITH MEALS 30 Active Lovastatin 20 mg 1 tablet with a meal 24h 90 Active Metformin HCl 1000 MG Orally Twice a day 1 tablet with meals 12h Dec, Active NovoLog Flexpen 100 UNIT/ML Subcutaneous 3 times a day with meals inject 25 units Sep, 90 days Active Pen [place] 32G X 4 MM subcutaneously 4 times a day as directed with insulin 6h Sep, 90 days Active RESULTS No Results PROCEDURES Procedure Date Ordered Result Body Site GLYCATED HEMOGLOBIN TEST Oct 21, 2016 INSTRUCTIONS MEDICATIONS ADMINISTERED No Known Medications MEDICAL (GENERAL) HISTORY Type Description Date Medical History hypertension Medical History type II diabetes Medical History hyperlipidemia Medical History chronic pain-knees Surgical History tonsillectomy 1957 Surgical History carderacs removed from both eyes 2017
--- OUTSIDE RECORDS SUMMARY | 2017-07-19 06:19 | XMS REPORT | Continuity of Care Document ---
Author Author [facility] Address Unknown Phone Unavailable Allergies Active Description Code Type Severity Reaction Onset Reported/Identified Relationship to Patient Clinical Status Yes Lisinopril HCTZ Drug Allergy 12/16/2008 Yes No Known Drug Allergies [id number] Drug Allergy Unknown N/A 07/12/2017 Medications There is no data. Problems Date Dx Coded Attending Type Code Diagnosis Diagnosed By 08/15/2008 250.00 DIABETES MELLITUS TYPE 2 08/15/2008 401.1 ESSENTIAL HYPERTENSION BENIGN 08/15/2008 SHADIA BLAIR APRN 250.00 DIABETES MELLITUS TYPE 2 08/15/2008 SHADIA BLAIR APRN 401.1 ESSENTIAL HYPERTENSION BENIGN 08/15/2008 250.00 DIABETES MELLITUS TYPE 2 08/15/2008 401.1 ESSENTIAL HYPERTENSION BENIGN 08/15/2008 SHADIA BLAIR APRN 250.00 DIABETES MELLITUS TYPE 2 08/15/2008 SHADIA BLAIR APRN 401.1 ESSENTIAL HYPERTENSION BENIGN 08/15/2008 250.00 DIABETES MELLITUS TYPE 2 08/15/2008 401.1 ESSENTIAL HYPERTENSION BENIGN 08/15/2008 250.00 DIABETES MELLITUS TYPE 2 08/15/2008 401.1 ESSENTIAL HYPERTENSION BENIGN 08/15/2008 DRAPER DO, ADAM K 250.00 DIABETES MELLITUS TYPE 2 08/15/2008 DRAPER DO, ADAM K 401.1 ESSENTIAL HYPERTENSION BENIGN 08/15/2008 SHADIA BLAIR APRN 250.00 DIABETES MELLITUS TYPE 2 08/15/2008 SHADIA BLAIR APRN 401.1 ESSENTIAL HYPERTENSION BENIGN 08/15/2008 SHADIA BLAIR APRN 250.00 DIABETES MELLITUS TYPE 2 08/15/2008 SHADIA BLAIR APRN 401.1 ESSENTIAL HYPERTENSION BENIGN 08/15/2008 DRAPER DO, ADAM K 250.00 DIABETES MELLITUS TYPE 2 08/15/2008 DRAPER DO, ADAM K 401.1 ESSENTIAL HYPERTENSION BENIGN 08/15/2008 SHADIA BLAIR APRN 250.00 DIABETES MELLITUS TYPE 2 08/15/2008 SHADIA BLAIR APRN 401.1 ESSENTIAL HYPERTENSION BENIGN 08/15/2008 ZOE REED MD 250.00 DIABETES MELLITUS TYPE 2 08/15/2008 ZOE REED MD 401.1 ESSENTIAL HYPERTENSION BENIGN 08/15/2008 DRAPER DO, ADAM K 250.00 DIABETES MELLITUS TYPE 2 08/15/2008 DRAPER DO, ADAM K 401.1 ESSENTIAL HYPERTENSION BENIGN 08/15/2008 ROSSY LEAD MASON TENDER, SHADIA T 250.00 DIABETES MELLITUS TYPE 2 08/15/2008 ROSSY LEAD MASON TENDER, SHADIA T 401.1 ESSENTIAL HYPERTENSION BENIGN 08/15/2008 ROSSY LEAD MASON TENDER, SHADIA T 250.00 DIABETES MELLITUS TYPE 2 08/15/2008 ROSSY LEAD MASON TENDER, SHADIA T 401.1 ESSENTIAL HYPERTENSION BENIGN 08/15/2008 ROSSY LEAD MASON TENDER, SHADIA T 250.00 DIABETES MELLITUS TYPE 2 08/15/2008 ROSSY LEAD MASON TENDER, SHADIA T 401.1 ESSENTIAL HYPERTENSION BENIGN 08/15/2008 ROSSY LEAD MASON TENDER, SHADIA T 250.00 DIABETES MELLITUS TYPE 2 08/15/2008 ROSSY LEAD MASON TENDER, SHADIA T 401.1 ESSENTIAL HYPERTENSION BENIGN 08/15/2008 ROSSY LEAD MASON TENDER, SHADIA T 250.00 DIABETES MELLITUS TYPE 2 08/15/2008 ROSSY LEAD MASON TENDER, SHADIA T 401.1 ESSENTIAL HYPERTENSION BENIGN 08/15/2008 DRAPER DO, ADAM K 250.00 DIABETES MELLITUS TYPE 2 08/15/2008 DRAPER DO, ADAM K 401.1 ESSENTIAL HYPERTENSION BENIGN 04/25/2014 BONNY HOLLY, ADAM K 919.0 ABRASION UNSPECIFIED 07/13/2017 JARRETT CALLE MD, Ot M17.12 UNILATERAL PRIMARY OSTEOARTHRITIS, LEFT 07/13/2017 JARRETT CALLE MD, Ot R53.83 OTHER FATIGUE 07/13/2017 JARRETT CALLE MD Ot Z01.810 ENCOUNTER FOR PREPROCEDURAL CARDIOVASCUL 07/13/2017 JARRETT CALLE MD, Ot Z01.811 ENCOUNTER FOR PREPROCEDURAL RESPIRATORY 07/13/2017 JARRETT CALLE MD, Ot Z01.812 ENCOUNTER FOR PREPROCEDURAL LABORATORY E 07/13/2017 JARRETT CALLE MD, Ot Z11.2 ENCOUNTER FOR SCREENING FOR OTHER BACTER Procedures Code Description [place] [address] A1C (IN-HOUSE) 05/15/2012 78547 ROUTINE VENIPUNCTURE 05/25/2012 93577 CBC 05/25/2012 58915 CMP 05/25/2012 59587 LIPID PANEL 05/25/2012 4409437 GFR CALC (RESULT ONLY) 05/25/2012 43831 GASTRIN 05/28/2012 99143 A1C (IN-HOUSE) 09/04/2012 56926 A1C (IN-HOUSE) 12/12/2012 47587 MICRO ALBUMIN-IN HOUSE 12/12/2012 82708 MICROALBUMIN 12/12/2012 74679 A1C (IN-HOUSE) 04/01/2013 35947 A1C (IN-HOUSE) 07/15/2013 42963 A1C (IN-HOUSE) 11/15/2013 78955 ROUTINE VENIPUNCTURE 11/20/2013 93685 CBC 11/20/2013 [id number] GFR CALC (RESULT ONLY) 11/20/2013 57041 CMP 11/20/2013 26615 LIPID PANEL 11/20/2013 14812 MICRO ALBUMIN-IN HOUSE 02/17/2014 42321 A1C (IN-HOUSE) 02/17/2014 16548 MICROALBUMIN 02/17/2014 Results Test Result Range CBC With Differential/Platelet - 07/15/16 08:42 WBC 12.4 x10E3/uL 3.4-10.8 RBC 4.51 x10E6/uL 4.14-5.80 Hemoglobin 13.1 g/dL 12.6-17.7 Hematocrit 39.7 % 37.5-51.0 MCV 88 fL 79-97 MCH 29.0 pg 26.6-33.0 MCHC 33.0 g/dL 31.5-35.7 RDW 14.2 % 12.3-15.4 Platelets 236 x10E3/uL 150-379 Neutrophils 22 % Lymphs 66 % Monocytes 6 % Eos 5 % Basos 1 % Neutrophils (Absolute) 2.7 x10E3/uL 1.4-7.0 Lymphs (Absolute) 8.2 x10E3/uL 0.7-3.1 Monocytes(Absolute) 0.7 x10E3/uL 0.1-0.9 Eos (Absolute) 0.6 x10E3/uL 0.0-0.4 Baso (Absolute) 0.1 x10E3/uL 0.0-0.2 Hematology Comments: Note: Comp. Metabolic Panel (14) - 07/15/16 08:42 Glucose, Serum 153 mg/dL 65-99 BUN 20 mg/dL 8-27 Creatinine, Serum 0.84 mg/dL 0.76-1.27 eGFR If NonAfricn Am 92 mL/min/1.73 >59 eGFR If Africn Am 106 mL/min/1.73 >59 BUN/Creatinine Ratio 24 10-24 Sodium, Serum 136 mmol/L 134-144 Potassium, Serum 4.2 mmol/L 3.5-5.2 Chloride, Serum 97 mmol/L 96-106 Carbon Dioxide, Total 22 mmol/L 18-29 Calcium, Serum 9.3 mg/dL 8.6-10.2 Protein, Total, Serum 6.5 g/dL 6.0-8.5 Albumin, Serum 4.2 g/dL 3.6-4.8 Globulin, Total 2.3 g/dL 1.5-4.5 A/G Ratio 1.8 1.2-2.2 Bilirubin, Total 0.3 mg/dL 0.0-1.2 Alkaline Phosphatase, S 102 IU/L 39-117 AST (SGOT) 14 IU/L 0-40 ALT (SGPT) 15 IU/L 0-44 Lipid Panel - 07/15/16 08:42 Cholesterol, Total 137 mg/dL 100-199 Triglycerides 144 mg/dL 0-149 HDL Cholesterol 31 mg/dL >39 VLDL Cholesterol Breezy 29 mg/dL 5-40 LDL Cholesterol Calc 77 mg/dL 0-99 TSH - 07/15/16 08:42 TSH 1.430 uIU/mL 0.450-4.500 Methicillin resistant Staphylococcus aureus (MRSA) screening culture - 10:35 Methicillin resistant Staphylococcus aureus (MRSA) screening culture NEG NRG Complete blood count (CBC) with automated white blood cell (WBC) differential - 07/12/17 10:45 Blood leukocytes automated count (number/volume) 14.6 10*3/uL 4.3-11.0 Blood erythrocytes automated count (number/volume) 4.26 10*6/uL 4.35-5.85 Venous blood hemoglobin measurement (mass/volume) 12.8 g/dL 13.3-17.7 Blood hematocrit (volume fraction) 38 % 40-54 Automated erythrocyte mean corpuscular volume 89 [foz_us] 80-99 Automated erythrocyte mean corpuscular hemoglobin (mass per erythrocyte) 30 pg 25-34 Automated erythrocyte mean corpuscular hemoglobin concentration measurement ( mass/volume) 34 g/dL 32-36 Automated erythrocyte distribution width ratio 13.2 % 10.0-14.5 Automated blood platelet count (count/volume) 205 10*3/uL 130-400 Automated blood platelet mean volume measurement 10.9 [foz_us] 7.4-10.4 Automated blood neutrophils/100 leukocytes 34 % 42-75 Automated blood lymphocytes/100 leukocytes 58 % 12-44 Blood monocytes/100 leukocytes 6 % 0-12 Automated blood eosinophils/100 leukocytes 2 % 0-10 Automated blood basophils/100 leukocytes 0 % 0-10 Blood neutrophils automated count (number/volume) 5.0 10*3 1.8-7.8 Blood lymphocytes automated count (number/volume) 8.5 10*3 1.0-4.0 Blood monocytes automated count (number/volume) 0.9 10*3 0.0-1.0 Automated eosinophil count 0.2 10*3/uL 0.0-0.3 Automated blood basophil count (count/volume) 0.0 10*3/uL 0.0-0.1 PT panel in platelet poor plasma by coagulation assay - 07/12/17 10:45 Prothrombin time (PT) in platelet poor plasma by coagulation assay 12.1 s 12.2-14.7 INR in platelet poor plasma or blood by coagulation assay 0.9 0.8-1.4 Comprehensive metabolic panel - 07/12/17 10:45 Serum or plasma sodium measurement (moles/volume) 139 mmol/L 135-145 Serum or plasma potassium measurement (moles/volume) 4.3 mmol/L 3.6-5.0 Serum or plasma chloride measurement (moles/volume) 106 mmol/L 98-107 Carbon dioxide 24 mmol/L 21-32 Serum or plasma anion gap determination (moles/volume) 9 mmol/L 5-14 Serum or plasma urea nitrogen measurement (mass/volume) 23 mg/dL 7-18 Serum or plasma creatinine measurement (mass/volume) 0.89 mg/dL 0.60-1.30 Serum or plasma urea nitrogen/creatinine mass ratio 26 NRG Serum or plasma creatinine measurement with calculation of estimated glomerular filtration rate > NRG Serum or plasma glucose measurement (mass/volume) 114 mg/dL 70-105 Serum or plasma calcium measurement (mass/volume) 9.2 mg/dL 8.5-10.1 Serum or plasma total bilirubin measurement (mass/volume) 0.4 mg/dL 0.1-1.0 Serum or plasma alkaline phosphatase measurement (enzymatic activity/volume) 89 U/L 40-136 Serum or plasma aspartate aminotransferase measurement (enzymatic activity/ volume) 15 U/L 5-34 Serum or plasma alanine aminotransferase measurement (enzymatic activity/volume ) 19 U/L 0-55 Serum or plasma protein measurement (mass/volume) 6.5 g/dL 6.4-8.2 Serum or plasma albumin measurement (mass/volume) 4.2 g/dL 3.2-4.5 Blood manual differential performed detection - 07/12/17 10:45 Blood monocytes/100 leukocytes 7 % NRG Manual blood segmented neutrophils/100 leukocytes 36 % NRG Blood band neutrophils/100 leukocytes 3 % NRG Manual blood lymphocytes/100 leukocytes 50 % NRG Manual eosinophils/100 leukocytes in nose 1 % NRG Manual blood basophils/100 leukocytes 0 % NRG Blood lymphocytes variant/100 leukocytes 3 % NRG Blood erythrocyte morphology finding identification NORMAL NRG Erythrocyte sedimentation rate by westergren method - 07/12/17 10:45 Erythrocyte sedimentation rate by westergren method 10 mm 0-30 Blood type T Indirect antibody screen panel - 07/12/17 10:45 ABO+Rh group OP NRG Blood group antibody screen NEGATIVE NRG Complete urinalysis with reflex to culture - 07/12/17 11:05 Urine color determination YELLOW NRG Urine clarity determination CLEAR NRG Urine pH measurement by test strip 6 5-9 Specific gravity of urine by test strip 1.010 1.016- 1.022 Urine protein assay by test strip, semi-quantitative 2+ NEGATIVE Urine glucose detection by automated test strip 1+ NEGATIVE Erythrocytes detection in urine sediment by light microscopy NEGATIVE NEGATIVE Urine ketones detection by automated test strip NEGATIVE NEGATIVE Urine nitrite detection by test strip NEGATIVE NEGATIVE Urine total bilirubin detection by test strip NEGATIVE NEGATIVE Urine urobilinogen measurement by automated test strip (mass/volume) NORMAL NORMAL Urine leukocyte esterase detection by dipstick NEGATIVE NEGATIVE Automated urine sediment erythrocyte count by microscopy (number/high power field) NONE NRG Automated urine sediment leukocyte count by microscopy (number/high power field ) NONE NRG Bacteria detection in urine sediment by light microscopy NEGATIVE NRG Squamous epithelial cells detection in urine sediment by light microscopy 0-2 NRG Crystals detection in urine sediment by light microscopy NONE NRG Casts detection in urine sediment by light microscopy NONE NRG Mucus detection in urine sediment by light microscopy NEGATIVE NRG Complete urinalysis with reflex to culture NO NRG Encounters ACCT No. Visit Date/Time Discharge Status Pt. Type Provider Facility Loc./Unit Complaint [id number] 04/25/2014 09:09:00 04/25/2014 23:59:59 CLS Outpatient ADAM DRAPER DO [id number] 03/21/2014 10:20:00 03/21/2014 23:59:59 CLS Outpatient SHADIA BLAIR APRN [id number] 02/17/2014 10:13:00 02/17/2014 23:59:59 CLS Outpatient SHADIA BLAIR APRN [id number] 12/16/2013 09:09:00 12/16/2013 23:59:59 CLS Outpatient SHADIA BLAIR APRN [id number] 11/20/2013 08:07:00 11/20/2013 23:59:59 CLS Outpatient SHADIA BLAIR APRN [id number] 11/15/2013 12:13:00 11/15/2013 23:59:59 CLS Outpatient SHADIA BLAIR APRN [id number] 07/15/2013 09:15:00 07/15/2013 23:59:59 CLS Outpatient ADAM DRAPER DO [id number] 05/03/2013 08:48:00 05/03/2013 23:59:59 CLS Outpatient ZOE REED MD [id number] 04/01/2013 10:04:00 04/01/2013 23:59:59 CLS Outpatient SHADIA BLAIR APRN [id number] 01/25/2013 08:54:00 01/25/2013 23:59:59 CLS Outpatient ADAM DRAPER DO [id number] 12/26/2012 10:43:00 12/26/2012 23:59:59 CLS Outpatient SHADIA BLAIR APRN [id number] 12/12/2012 14:22:00 12/12/2012 23:59:59 CLS Outpatient SHADIA BLAIR APRN [id number] 09/04/2012 14:22:00 09/04/2012 23:59:59 CLS Outpatient ADAM DRAPER DO [id number] 05/30/2012 16:04:00 05/30/2012 23:59:59 CLS Outpatient [id number] 05/25/2012 08:09:00 05/25/2012 23:59:59 CLS Outpatient SHADIA BLAIR APRN [id number] 05/15/2012 14:05:00 05/15/2012 23:59:59 CLS Outpatient [id number] 02/08/2012 10:02:00 02/08/2012 23:59:59 CLS Outpatient [id number] 01/11/2012 11:51:00 01/11/2012 23:59:59 CLS Outpatient SHADIA BLAIR APRN [id number] 06/27/2012 10:09:00 Document Registration [id number] 07/12/2017 10:04:00 07/12/2017 11:10:00 DIS Outpatient JARRETT CALLE MD [facility] PREOP LEFT TOTAL KNEE REPLACEMENT [id number] 07/19/2017 08:45:00 PEN Preadmit JARRETT CALLE MD LEFT KNEE OSTEOARTHRITIS [id number] 07/16/2016 11:06:00 Document Registration [id number] 02/09/2017 08:00:00 02/09/2017 23:59:59 CLS Outpatient [facility]
--- OUTSIDE RECORDS SUMMARY | 2017-07-19 06:19 | XMS REPORT ---
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 379587726 Problem Other chronic pain G89.29 Active 02647277 Problem Type 2 diabetes mellitus without complications E11.9 Active 915791517 Problem Type 2 diabetes mellitus with hyperglycemia E11.65 Active 764959990 Problem Diabetes type 2, controlled E11.9 Active 95721018 Problem Controlled type 2 diabetes mellitus without complication, without long -term current use of insulin E11.9 Active 648383751 Problem FDC current use of insulin Z79.4 Active [id number] ALLERGIES No Information ENCOUNTERS Encounter Location Date Diagnosis [place] [address] [address] Jun, Diabetes type 2, controlled E11.9 ; Other chronic pain G89.29 ; Pain in left knee M25.562 and Pain in right knee M25.561 [place] [address] [place] [id number] [place] [address]- 7457 May, [place] [address] [address] Feb, Other viral agents as the cause of diseases classified elsewhere B97.89 and Acute upper respiratory infection, unspecified J06.9 [place] [address] [address]- 3868 Feb, [place] [address] [place] [id number] [place] [address] 97337- 2412 Feb, Type 2 diabetes mellitus without complications E11.9 and FDC current use of insulin Z79.4 [facility] [address] [address] Dec, [facility] [address] [place] [id number] [place] [address] 67170- 2626 Dec, [facility] [id number] [place] [address] 24020- 9365 Nov, Type 2 diabetes mellitus without complications E11.9 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 [facility] [address] [place] [id number] [place] [address] 19089- 1122 Nov, [facility] [address] [place] [id number] [place] [address] 92788- 5996 Nov, Controlled type 2 diabetes mellitus without complication, without long-term current use of insulin E11.9 [facility] [id number] [place] [address] 86625- 9169 Nov, Controlled type 2 diabetes mellitus without complication, without long-term current use of insulin E11.9 [facility] [id number] [place] [address] 42492- 7068 Nov, Type 2 diabetes mellitus with other circulatory complications E11.59 [facility] [id number] [place] [address] 13262- 6062 Oct, Type 2 diabetes mellitus with hyperglycemia E11.65 [facility] [id number] [place] [address] 97055- 5812 Oct, [facility] [address] [address] 49[address] Oct, [facility] [id number] [place] [address] 75049- 1939 Oct, Type 2 diabetes mellitus without complications E11.9 [facility] [address] [address] 0030 Sep, Type 2 diabetes mellitus with hyperglycemia E11.65 [facility] [address] [place] [id number] [place] [address] 62688- 0469 Sep, Type 2 diabetes mellitus with other circulatory complications E11.59 [place] [address] [place] [id number] [place] [address] 10758- 5669 Aug, [place] [address] [place] [id number] [place] [address] 800446- 3837 July, Controlled type 2 diabetes mellitus without complication, without long-term current use of insulin E11.9 [place] [address] [place] [id number] [place] [address] 50960- 7985 May, [place] [address] [place] [id number] [place] [address] 34311- 3518 Feb, Controlled type 2 diabetes mellitus without complication, without long-term current use of insulin E11.9 [place] [address] [place] [id number] [place] [address] 09941- 1048 Jan, Controlled type 2 diabetes mellitus without complication, without long-term current use of insulin E11.9 [place] [address] [place] [address] 68984- 9568 Jan, Type 2 diabetes mellitus with hyperglycemia E11.65 and FDC current use of insulin Z79.4 [place] [id number] [place] [address] 94552- 6067 Nov, Diabetes type 2, controlled E11.9 [place] [id number] [place] [address] 21546- 4489 Aug, Type 2 diabetes mellitus with other circulatory complications E11.59 and Hypertension, essential I10 [place] [id number] [place] [address] 85859- 2571 July, Type 2 diabetes mellitus with hyperglycemia E11.65 and Hypertension, benign I10 [place] [id number] [place] [address] 98433- 7991 May, Type 2 diabetes mellitus with other circulatory complications E11.59 [place] [address] [place] [id number] [place] [address] 04756- 2012 Apr, Diabetes type 2, controlled E11.9 [facility] [address] [address] 08[address] Jan, Type 2 diabetes mellitus with other circulatory complications E11.59 [facility] [address] [address] 7356 Dec, Type 2 diabetes mellitus with other circulatory complications E11.59 [facility] [id number] [place] [address] 09989- 8556 Aug, Diabetes 250.00 [facility] [id number] [place] [address] 64803- 1931 July, Diabetes 250.00 [facility] [address] [place] [id number] [place] [address] 788574- 9954 Jun, [facility] [id number] [place] [address] 073745- 0687 Jun, [facility] [address], [place] [address]- 2194 Jun, [facility] [address] [address]- 3336 Jun, [facility] [address] [address]- 4492 Jun, [facility] [address] [address]- 7220 May, [facility] [address] [address]- 2056 May, [facility] [address] [address]- 9053 Apr, [facility] [address] [address]- 6411 Apr, [facility] [address] [address]- 2056 Mar, [facility] [place] [facility] [address] [id number] [place] [address]- 6029 16 Mar, 2014 [facility] [place] [facility] [address] [id number] [place] [address]- 6471 29 Feb, 2014 [facility] [place] [facility] [address] [id number] [place] [address]- 5246 Feb, [facility] [place] [facility] [address] [id number] [place] [address]- 4018 Feb, [facility] [place] [facility] [address] [id number] [place] [address]- 3093 Feb, [facility] [place] [facility] [address] [id number] [place] [address]- 4063 15 Feb, 2014 [facility] [place] [facility] [address] [id number] [place] [address]- 0509 15 Feb, 2014 [facility] [place] [facility] [address] [id number] [place] [address]- 6347 Dec, [facility] [place] [facility] [address] [id number] [place] [address]- 6683 13 Dec, 2013 [facility] [place] [facility] [address] [id number] [place] [address]- 6386 29 Nov, 2013 [facility] [place] [facility] [address] [id number] [place] [address]- 6725 29 Nov, 2013 [facility] [place] [facility] [address] [id number] [place] [address]- 2540 29 Sep, 2013 [facility] [place] [facility] [address] [id number] [place] [address] 2548 29 Sep, 2013 [facility] [place] [facility] [address] [id number] [place] [address]- 2546 17 Nov, 2013 [facility] [place] [facility] [address] [id number] [place] [address]- 2546 17 Nov, 2013 [facility] [place] [facility] [address] [id number] [place] [address]- 1483 Nov, [facility] [place] [facility] [address] [id number] [place] [address]- 2801 Nov, [facility] [place] [facility] [address] [id number] [place] [address]- 2902 Aug, [facility] [place] [facility] [address] [id number] [place] [address]- 5009 Aug, [facility] [place] [facility] [address] [id number] [place] [address]- 4290 Aug, [facility] [place] [facility] [address] [id number] [place] [address]- 9981 Aug, [facility] [place] [facility] [address] [id number] [place] [address]- 8970 July, [facility] [place] [facility] [address] [id number] [place] [address]- 7202 July, [facility] [place] [facility] [address] [id number] [place] [address]- 3774 Jun, [facility] [place] [facility] [address] [id number] [place] [address]- 8525 Jun, [facility] [place] [facility] [address] [id number] [place] [address]- 4067 Jun, [facility] [place] [facility] [address] [id number] [place] [address]- 3212 Jun, [facility] [place] [facility] [address] [id number] [address]- 3015 May, [facility] [place] [facility] [address] [id number] [place] [address]- 6941 May, [facility] [place] [facility] [address] [id number] [place] [address]- 1122 Apr, [facility] [place] [facility] [address] [id number] [place] [address]- 5699 Apr, [facility] [place] [facility] [address] [id number] [place] [address]- 7638 Mar, [facility] [address] [id number] [place] [address]- 7869 Mar, [facility] [place] [facility] [address] [id number] [place] [address]- 7312 Mar, [facility] [address] [id number] [place] [address]- 3671 Mar, [facility] [place] [facility] [address] [id number] [place] [address]- 6434 Feb, [facility] [place] [facility] [address] [id number] [place] [address]- 6774 Feb, [facility] [place] [facility] [address] [id number] [place] [address]- 2233 Jan, [facility] [address] [id number] [place] [address]- 1101 Jan, [facility] [place] [facility] [address] [id number] [place] [address]- 4765 Dec, [facility] [place] [facility] [address] [id number] [place] [address]- 5613 Dec, [facility] [place] [facility] [address] [id number] [place] [address]- 6127 Dec, [facility] [place] [facility] [address] [id number] [place] [address]- 2607 Dec, [facility] [place] [facility] [address] [id number] [place] [address]- 3255 Nov, [facility] [place] [facility] [address] [id number] [place] [address]- 7836 Sep, [facility] [place] [facility] [address] [id number] [place] [address]- 2546 Sep, [facility] [place] [facility] [address] [id number] [place] [address]- 0976 Aug, [facility] [place] [facility] [address] [id number] [place] [address]- 1845 July, [facility] [address] [id number] [place] [address]- 5761 Jun, [facility] [address] [id number] [place] May, [facility] [address] [id number] [place] [address]- 1726 May, [facility] [address] [id number] [place] [address]- 7408 May, [facility] [address] [id number] [place] [address]- 8307 May, [facility] [address] [id number] [place] [address]- 7760 May, [facility] [address] [id number] [place] [address]- 5629 Feb, [facility] [address] [id number] [place] [address]- 5318 Feb, [facility] [address] [id number] [place] [address]- 8864 Jan, [facility] [address] [id number] [place] [address]- 0292 Jan, [facility] [address] [id number] [place] [address]- 4800 Jan, [facility] [place] [facility] [address] [id number] [place] [address]- 0577 Jan, [facility] [place] [facility] [address] [id number] [place] [address]- 6956 Jan, [facility] [place] [facility] [address] [id number] [place] 4975 Jan, [facility] [place] [facility] [address] [id number] [place] [address]- 9148 Dec, [facility] [place] [facility] [address] [id number] [place] [address]- 5712 18 Dec, 2011 [facility] [place] [facility] [address] [id number] [place] [address]- 8606 18 Dec, 2011 [facility] [place] [facility] [address] [id number] [place] [address]- 0463 18 Dec, 2011 [facility] [place] [facility] [address] [id number] [place] [address]- 3910 10 Dec, 2011 [facility] [place] [facility] [address] [id number] [place] [address]- 3811 26 Nov, 2011 [facility] [place] [facility] [address] [id number] [place] [address]- 1588 18 Nov, 2011 [facility] [place] [facility] [address] [id number] [place] [address]- 1392 13 Nov, 2011 [facility] [place] [facility] [address] [id number] [place] [address]- 3624 Sep, [facility] [place] [facility] [address] [id number] [place] [address]- 5837 Aug, [facility] [place] [facility] [address] [id number] [place] [address]- 8706 Aug, [facility] [place] [facility] [address] [id number] [place] [address]- 9723 May, [facility] [place] [facility] [address] [id number] [place] [address]- 5122 Apr, [facility] [place] [facility] [address] [id number] [place] [address]- 1296 Mar, [facility] [place] [facility] [address] [id number] [place] [address]- 6348 Mar, [facility] [place] [facility] [address] [id number] [place] [address]- 6253 Dec, [facility] [place] [facility] [address] [id number] [place] [address]- 1989 11 Sep, 2010 [facility] [address] [id number] [place] [address]- 9552 2010 [facility] [place] [facility] [address] [id number] [place] [address]646 2010 [facility] [address] [id number] [place] [address]- 8881 11 Jan, 2010 [facility] [place] [facility] [address] [id number] [place] [address]- 4920 08 Jan, 2010 [facility] [address] [id number] [place] [address]- 4413 10 Nov, 2009 [facility] [place] [facility] [address] [id number] [place] [address]- 5436 15 Feb, 2009 [facility] [place] [facility] [address] [id number] [place] [address]- 3592 15 Feb, 2009 [facility] [address] [id number] [place] [address]- 1534 16 Jan, 2009 [facility] [place] [facility] [address] [id number] [place] [address]- 7368 16 Jan, 2009 [facility] [address] [id number] [place] [address]- 0015 13 Dec, 2008 [facility] [place] [facility] [address] [id number] [place] [address]- 3398 13 Dec, 2008 [facility] [place] [facility] [address] [id number] [place] [address] 2543 15 Nov, 2008 [facility] [place] [facility] [address] [id number] [place] [address]- 0979 17 Oct, 2008 [facility] [place] [facility] [address] [id number] [place] [address]- 9456 13 Sep, 2008 [facility] [place] [facility] [address] [id number] [place] [address]- 7699 Aug, IMMUNIZATIONS No Known Immunizations SOCIAL HISTORY Never Assessed REASON FOR VISIT BS f/u PLAN OF CARE VITAL SIGNS MEDICATIONS Medication Instructions Dosage Frequency Start Date End Date Duration Status NovoLog Flexpen 100 UNIT/ML Subcutaneous before meals inject 25 units Sep, Active RESULTS No Results PROCEDURES No Known procedures INSTRUCTIONS MEDICATIONS ADMINISTERED No Known Medications MEDICAL (GENERAL) HISTORY Type Description Date Medical History hypertension Medical History type II diabetes Medical History hyperlipidemia Medical History chronic pain-knees Surgical History tonsillectomy 1957 Surgical History carderacs removed from both eyes 2017
[2017-07-19] MEDS ORDERED: ROPIVACAINE 5MG/ML 30ML VIAL ONE (06:37)
[2017-07-19] MEDS ORDERED: fentaNYL INJECTION 100 MCG/2 ML AMP ONE ×3 (06:37→08:59)
[2017-07-19] MEDS ORDERED: MIDAZOLAM 2 MG/2 ML (VERSED) VIAL ONE ×2 (06:37→06:38)
[2017-07-19] MEDS ORDERED: proPOfol 200 MG/20 ML (DIPRIVAN) VIAL IV ONE (06:37)
[2017-07-19] MEDS ORDERED: LIDOCAINE PF 2% 5 ML (XYLOCAINE) VIAL ONE (06:37)
[2017-07-19] MEDS ORDERED: SEVOFLURANE (ULTANE) 15 ML INHAL SOLN ONE ×6 (06:42→08:23)
[2017-07-19] MEDS ORDERED: ONDANSETRON 4 MG/2 ML (SDV) Z0FRAN ONE (06:42)
[2017-07-19] MEDS: LACTATED RINGERS 1,000 ML IV PRN ×2 (06:45→08:41)
[2017-07-19 07:00] VITALS: BP 151/67
[2017-07-19] MEDS ORDERED: NS (IVPB) 50 ML ONE (07:11)
[2017-07-19] MEDS ORDERED: CEFUROXIME 1.5 GM (ZINACEF) VIAL ONE (07:11)
--- NOTE | 2017-07-19 07:23 | Progress Note-Pre Operative ---
Pre-Operative Progress Note H&P Reviewed The H&P was reviewed, patient examined and no changes noted. Date Seen by Provider: July 19, 2017 Time Seen by Provider: 07:23 Date H&P Reviewed: July 19, 2017 Time H&P Reviewed: 07:23 Pre-Operative Diagnosis: left knee primary osteoarthritis JARRETT CALLE MD July 19, 2017 07:23
--- NOTE | 2017-07-19 07:24 | Progress Note-Post Operative ---
Post-Operative Progess Note Surgeon (s)/Drafter Seismograph (s) Surgeon JARRETT CALLE MD Drafter Seismograph: Peng [place] Pre-Operative Diagnosis left knee primary osteoarthritis Post-Operative Diagnosis left knee primary osteorthritis Procedure & Operative Findings Date of Procedure 07/19/17 Procedure Performed/Findings left total knee arthroplasty Anesthesia Type GETA plus regional Estimated Blood Loss Estimated blood loss (mL): minimal Specimens/Packing Specimens Removed none Packing: none JARRETT CALLE MD July 19, 2017 07:24
--- NOTE | 2017-07-19 07:25 | D/C HH Face to Face Order ---
D/C Face to Face Orders Instructions for Patient Patient Instructions/FollowUp: three weeks Physician to follow Patient: three weeks Discharge Diet for Home: Regular Diet Patient Data-Allergies,Ht & Wt Patient Allergies: Coded Allergies: No Known Drug Allergies (Unverified , 07/12/17) Height (Feet): 5 Height (Inches): 11.00 Weight (Pounds): 295 Weight (Ounces): 0.0 Home Health Need/Face to Face Date of Face to Face: July 19, 2017 Clinical Findings: Generalized weakness and fatigue, Instability, Muscle weakness, Non or partial weight bearing, Pain with ambulation, Unsteady gait I have seen Pt [id number]: Yes Discharged To: Home Diagnosis/Conditions: left total knee arthroplasty Patient is Homebound due to: Julio Cesar fall risk due to instabilty, Muscle weakness , Pain w/ambulation Homebound Status Due to the above stated illness, injury or surgical procedure (medical condition or diagnosis) and associated clinical findings, the patient is homebound because of his/her inability to leave home except with aid of a supportive device and/or person AND leaving the home requires a considerable and taxing effort or is medically contraindicated. Pt req the following assistanc: [facility] Nursing Orders Home Health Services Order: Physical Therapy-Evaluate & Treat Therapy Orders Therapy Orders: PT to assess for OT Therapy Specific Orders: Eval assistive deivces, Teach enviro modifications/ safety, Gait training, Increase strength/endurance, Restore ROM Certify Stmt I certify that this patient is under my care and that I, a nurse practitioner or a physician; a minister assistant working with me, had a face to face encounter that - meets the physician face to face encounter requirements with this patient as dated. JARRETT CALLE MD July 19, 2017 07:25
[2017-07-19] MEDS ORDERED: OXYC-197 PO (07:27)
[2017-07-19] MEDS ORDERED: diphenhydrAMINE 50 MG/ML INJ (BENADRYL) IVP PRN (07:30)
[2017-07-19] MEDS ORDERED: ONDANSETRON 4 MG/2 ML (SDV) Z0FRAN IVP PRN ×2 (07:30→09:30)
[2017-07-19] MEDS ORDERED: ACETAMINOPHEN 325 MG TABLET/CAPLET (TYLENOL) PO PRN (07:30)
[2017-07-19] MEDS ORDERED: CEFUROXIME INJECTION 1,500 MG in NS (IVPB) 100 ML IV ONE (07:45)
[2017-07-19] MEDS ORDERED: CATHETER FLUSH 10 ML SYR IV PRN (07:45)
[2017-07-19] MEDS ORDERED: CEFUROXIME 1.5 GM/NS 50 ML IVPB IV ONE ×2 (07:45)
[2017-07-19] MEDS ORDERED: ROCURONIUM 10 MG/ML 5 ML SYRINGE IV ONE (08:21)
[2017-07-19] MEDS ORDERED: morphine INJ 10 MG/ML 1ML (SYR OR VIAL) ONE (08:54)
[2017-07-19] MEDS: SENNA W/DOCUSATE (SENOKOT S) TABLET PO SCH ×2 (09:00→20:52)
[2017-07-19] MEDS ORDERED: NEOSTIGMINE 1 MG/ML 5 ML SYRINGE ONE (09:11)
[2017-07-19] MEDS ORDERED: GLYCOPYRROLATE 0.2 MG/ML (ROBINUL) 2 ML VIAL ONE (09:11)
[2017-07-19] MEDS ORDERED: HYDROmorphone 1 MG/ML (DILAUDID) 1 ML SYRINGE IV PRN (09:30)
[2017-07-19] MEDS ORDERED: PROMETHAZINE INJ 25 MG/ML (PHENERGAN) AMP IVP PRN (09:30)
[2017-07-19] MEDS: morphine INJ 10 MG/ML 1ML (SYR OR VIAL) IVP PRN ×2 (09:47→09:54)
--- NOTE | 2017-07-19 10:06 | Progress Note-Standard ---
Standard Progress Note Progress Notes/Assess & Plan Date Seen by Provider: July 19, 2017 Time Seen by Provider: 10:05 Progress/Assessment & Plan Post op check No complaints Radiographs--HW well positioned. No fractures LLE--sym DP pulse with brisk cap refill. sensation intact throughout. Intact DF and PF of toes and ankle s/p LTKA doing well mobilize as able JARRETT CALLE MD July 19, 2017 10:06
[2017-07-19 10:30] VITALS: BP 148/74
[2017-07-19] MEDS: NS IV 1000 ML 1,000 ML IV SCH ×3 (10:35→21:32)
[2017-07-19] MEDS: morphine PCA 30 MG/30 ML VIAL IV PRN ×2 (10:41→21:32)
[2017-07-19 12:00] VITALS: BP 129/65
[2017-07-19] MEDS: oxyCODONE/APAP 5/325MG (PERCOCET 5) TABLET PO PRN ×5 (12:33→23:56)
--- NOTE | 2017-07-19 13:33 | Diagnostic Imaging Report ---
INDICATION: Postop left knee. TIME OF EXAMINATION: 9:55 AM. FINDINGS: Two views of the left knee demonstrate postoperative changes of total knee arthroplasty. The prosthetic elements appear to be in good position. No fracture or loosening is seen. There are overlying skin jared. IMPRESSION: Satisfactory postop appearance to the left knee. Dictated by: Dictated on workstation # [id number]
--- NOTE | 2017-07-19 14:37 | Physical Therapy Evaluation ---
PT Evaluation-General Medical Diagnosis Admission Date July 19, 2017 at 06:00 Medical Diagnosis: left TKA Onset Date: July 26, 2017 Therapy Diagnosis Therapy Diagnosis: impaired mobility, strength, endurance, ROM Height/Weight Height (Feet): 5 Height (Inches): 11.00 Weight (Pounds): 295 Weight (Ounces): 0.0 Precautions Precautions/Isolations: Standard Precautions Weight Bear Status Right Lower Extremity: Right Weight Bearing/Tolerated Left Lower Extremity: Left Weight Bearing/Tolerated Referral Physician: Peng Hall Reason for Referral: Evaluation/Treatment Medical History Pertinent Medical History: DM, HTN Additional Medical History hyperlipidemia, surg (cataract, tonsillectomy) Reviewed History: Yes Social History Home: Single Level Current Living Status: Other Family Entry Into Home: Stairs With Railing PT Steps Into Home: 3 Prior/Core FIM Prior Level of Function Functional [place] Measure 0=Not Assessed/NA 4=Minimal Assistance 1=Total Assistance 5=Supervision or Setup 2=Maximal Assistance 6=Modified [place] 3=Moderate Assistance 7=Complete [place] Bed Mobility: 7 Transfers (B,C,W/C) (FIM): 7 Gait: 7 PT Evaluation-Current Subjective Patient sitting EOB pre tx, agrees to PT, states he has pain of 8/10 in his left knee, nurse aware and got him pain meds. Pt/Family Goals to be independent at home Objective Patient Orientation: Person, Place, Situation Attachments: IV ROM/Strength ROM Lower Extremities left knee extension +2 degrees, flexion 70 degrees Strength Lower Extremities NT Neuromuscular (Tone, Coordination, Reflexes) NT Sensory Vision: Functional Hearing: Functional Sensation Right Lower Extremit: Intact Sensation Left Lower Extremity: Intact Transfers Functional [place] Measure 0=Not Assessed/NA 4=Minimal Assistance 1=Total Assistance 5=Supervision or Setup 2=Maximal Assistance 6=Modified [place] 3=Moderate Assistance 7=Complete [place] Transfers (B, C, W/C) (FIM): 4 Scootin Rollin Supine to/from Sit: 4 Sit to/from Stand: 4 bed t/f WC(FIM only if WC use): 4 Bed mobility SBA, supine to sit min assist, sit to stand and stand pivot CGA. Cues for hand placement and positioning. Gait Mode of Locomotion: Walk Anticipated Mode of Locomotion: Walk Gait (FIM): 2 Distance: 60' Gait Level of Assist: 4 Gait Persons Needed: 1 Gait Assistive Device: FWW Comments/Gait Description Patient ambulated 60' with a rolling walker with CGA. Patient ambulates slowly with very little left knee flexion. Balance Sitting Static: Normal Sitting Dynamic: Normal Standing Static: Good Standing Dynamic: Good Treatment Left total knee protocol x10 (AP, QS, HS, SAQ, SLR), CPM applied to patient and fit for him and set at 50 degrees flexion and -2 degrees extension Assessment/Needs Patient has impaired mobility, strength, endurance, ROM post left TKA. Rehab Potential: Fair PT Short Term Goals Short Term Goals Time Frame: July 26, 2017 Transfers (B,C,W/C) (FIM): 5 Gait (FIM): 5 Gait Distance Comment: 150' Gait Level of Assist: 5 Gait Assistive Device: FWW PT Plan Problem List Problem List: Activity Tolerance, Functional Strength, Safety, Balance, Gait, Transfer, Bed Mobility, ROM Treatment/Plan Treatment Plan: Continue Plan of Care Treatment Plan: Bed Mobility, Education, Functional Activity Pilar, Functional Strength, Gait, Safety, Therapeutic Exercise, Transfers Treatment Duration: July 26, 2017 Frequency: 11 times per week Estimated Hrs Per Day: .25 hour per day (15-30') Patient and/or Family Agrees t: Yes Safety Risks/Education Patient Education: Gait Training, Transfer Techniques, Correct Positioning, Safety Issues Teaching Recipient: Patient Teaching Methods: Demonstration, Discussion Response to Teaching: Reinforcement Needed Discharge Recommendations Plan Patient will perform bed mobility and transfer training, balance and endurance training, functional strengthening, stair training, gait training, and education , to improve functional mobility and independence at home. Therapy D/C Recommendations: Home w/ Family Support Time/GCodes Time In: 1405 Time Out: 1430 Total Billed Treatment Time: 25 Total Billed Treatment 1 visit EVL 15' GT 10' TOMÁS RUBIN PT July 19, 2017 14:37
[2017-07-19] MEDS: CEFUROXIME INJECTION 750 MG in NS (IVPB) 50 ML IV SCH ×2 (15:09→23:57)
[2017-07-19 16:13] VITALS: BP 146/64
[2017-07-19] MEDS: inSUlin ASPART (NovoLOG) 1 UNIT/0.01 ML (CHARGE PER UNIT) SC SCH ×2 (16:26→20:53)
--- NOTE | 2017-07-19 16:48 | OPERATIVE REPORT ---
DATE OF SERVICE: 07/19/2017 PREOPERATIVE DIAGNOSIS: Left knee primary osteoarthritis. POSTOPERATIVE DIAGNOSIS: Left knee primary osteoarthritis. PROCEDURE: Left total knee arthroplasty. SURGEON: Mario Calle MD. POOL ATTENDANT: Peng Hall, who assisted throughout the procedure and closed the incision. ANESTHESIA: General endotracheal plus regional block by Renalod pillai CRNA. TOURNIQUET TIME: Approximately 70 minutes at 300 mmHg. ESTIMATED BLOOD LOSS: Minimal. DRAINS: None. COMPLICATIONS: None. POSTOPERATIVE PLAN: Routine protocol. MATERIALS: MicroPort cemented size 6 femur, cemented size 6 tibia with a 10 mm insert and a cemented size 32 patellar button. STATEMENT OF MEDICAL NECESSITY: The patient is a 67-year-old gentleman with longstanding progressive left knee pain. He had marked varus alignment. Radiographs revealed severe medial and patellofemoral arthrosis. He had tried injections, anti-inflammatories and rest as well as activity modifications without relief and due to functional impairment and failure to improve with conservative measures, the patient elected to proceed with surgical intervention. DESCRIPTION OF PROCEDURE: After risks and benefits of the procedure were discussed and questions were answered and informed consent was signed and placed on chart. The operative site was confirmed in the preoperative holding area initialed by the surgeon. The patient was then transported to the operating room and after adequate levels of regional plus general endotracheal anesthetic were obtained, a timeout was called confirming the operative site. The left lower extremity was then prepped and draped in the usual sterile fashion with the leg elevated and the knee flexed. Tourniquet was inflated to 300 mmHg. Standard anterior approach was utilized. Hemostasis was obtained with cautery. A medial parapatellar arthrotomy was performed leaving 1 cm cuff on the patella for later reattachment. A portion of the fat pad was resected. A subperiosteal release was performed in the proximal medial tibia being careful to stay on the bony surface. The ACL was resected. The intramedullary guide was passed into the femur. The distal cutting block was placed and the distal cut was made. The femur was sized to a size 6 and 6 cutting block was placed ensuring that it was well aligned with epicondylar axis. The cuts were made then from posterior to anterior. Subperiosteal release was then carefully performed on the posterior distal femur, being careful to stay on the bony surface. Intramedullary guide was passed into the tibia and the tibial cut was made after ensuring good alignment with a drop nolan. The six baseplate was placed with excellent coverage. This was then prepared with a drill and a keel punch. The trials were inserted. The trochlear cut was made on the femur. A 10 mm insert was placed. The patella was prepared using the free hand technique by resecting 10 mm off the undersurface. The peg guide was placed and the peg holes were drilled. The 32 trial was placed. The knee was then taken through range of motion. Full extension was easily obtained. 120 degrees of flexion with gravity was easily obtained. The patella tracked well. There was no anterior/posterior or medial/lateral laxity in flexion or extension. The trials were removed. The joint was copiously irrigated with pulse lavage. Bone ends were irrigated and dried. The tibial baseplate was cemented into position. Excessive cement was removed. The superior surface was irrigated and dried. The polyethylene insert was placed. The distal femur was irrigated and dried and the femoral prosthesis was cemented in position, again removing excessive cement. The knee was brought into full extension until the cement had cured. The undersurface of the patella was irrigated and dried and the patellar button was cemented into position. The excessive cement was removed. Once the cement had cured, the knee was taken through range of motion. Full extension was easily obtained. 120 degrees of flexion with gravity was easily obtained. The patella tracked well. There was no anterior/posterior or medial/lateral laxity in flexion or extension. The joint was further irrigated with pulse lavage. Arthrotomy was closed with #2 Tevde[place] in [id number] interrupted fashion. The knee was flexed. The repair was stable with a well tracking patella. Subcutaneous tissues were irrigated with pulse lavage using a total of 6 liters throughout the procedure. 0 Vicryl was used for deep subcutaneous tissue, 2-0 Vicryl for the superficial subcutaneous tissue, jared used on the skin. A soft dressing was applied. The tourniquet was deflated and the patient was transported to the recovery room awake and in stable condition. Job ID: [id number] DocumentID: [id number] Dictated Date: 07/19/2017 09:18:25 Janitor Helper Date: 07/19/2017 16:47:46 Dictated By: MARIO CALLE MD
--- NOTE | 2017-07-19 19:14 | Consultation (CHS) ---
HPI History of Present Illness: Patient admitted for left knee total arthroplasty secondary to left knee osteoarthritis, surgeon Dr. Watson. We have been consulted for medical management; patient is a Type II Diabetic, insulin dependent. Reports that he takes 48 units of Levemir BID, and 25 units of Novolog BID - he states he normally only eats only two meals per day. Last HgbA1C 6.9 in June 2017. Also with history of hypertension and hyperlipidemia. Sees Kathleen Byrne APRN. Source: patient, old records Exam Limitations: no limitations Date seen by provider: July 19, 2017 Time Seen by Provider: 16:54 Attending Physician Mario Watson MD PCP Danish Alvarez MD Consult Date of Admission July 19, 2017 at 06:00 Home Medications Home Medications Reviewed patient Home Medication Reconciliation performed by pharmacy medication reconciliations vein access technician and/or nursing. Patients Allergies have been reviewed. Allergies Coded Allergies: No Known Drug Allergies (Unverified , 07/12/17) [id number]-[id number]-Dggqdi Hx Patient Social History Living Status: lives independently Employed/Student: retired Alcohol Use: Rarely Uses Recreational Drug Use: No Smoking Status: Never a Smoker Recent Foreign Travel: No Contact w/other who traveled: No Recent Hopitalizations: No Recent Infectious Disease Expo: No Physical Abuse Screen: No Sexual Abuse: No Immunizations Up To Date Tetanus Booster (TDap): Unknown Past Medical History Type II Diabetes, Insulin Dependent HTN Hyperlipidemia Chronic Knee Pain Family Medical History Family History: Dementia 19 MOTHER Diabetes mellitus G8 BROTHER G8 SISTER Hypertension G8 BROTHER Respiratory disorder 19 FATHER (lung cancer) Review of Systems ([facility]C) Constitutional: see HPI EENTM: no symptoms reported Respiratory: no symptoms reported Cardiovascular: no symptoms reported Gastrointestinal: no symptoms reported Genitourinary: no symptoms reported Musculoskeletal: joint pain Skin: no symptoms reported Psychiatric/Neurological: No Symptoms Reported Reviewed Test Results Reviewed Test Results Lab Laboratory Tests Test 07/19/17 06:34 07/19/17 09:33 07/19/17 16:12 Range/Units Glucometer 124 H 157 H 213 H 70-110 MG/DL Physical Exam-([facility]C) Physical Exam Vital Signs VS - Last 72 Hours, by Label 07/19/17 07/19/17 07/19/17 07/19/17 07:00 10:30 10:41 11:14 Temp 97.8 97.4 Pulse 89 77 Resp 16 20 18 B/P (MAP) 151/67 (95) 148/74 (98) Pulse Ox 95 96 94 O2 Delivery Room Air Room Air Room Air 07/19/17 07/19/17 07/19/17 12:00 16:13 17:52 Temp 98.2 98.4 Pulse 86 91 Resp 18 17 18 B/P (MAP) 129/65 (86) 146/64 (91) Pulse Ox 95 95 O2 Delivery Room Air Room Air Capillary Refill : General Appearance: WD/WN, no apparent distress Eyes: Bilateral Eye Normal Inspection HEENT: normal ENT inspection; No scleral icterus (R), No scleral icterus (L), No photophobia Neck: non-tender, full range of motion, supple, normal inspection Respiratory: chest non-tender, lungs clear, normal breath sounds, no respiratory distress, no accessory muscle use Cardiovascular: regular rate, rhythm, no edema, no gallop, no JVD, systolic murmur (II/ soft systolic murmur) Gastrointestinal: normal bowel sounds, non tender, soft, no organomegaly, no pulsatile mass Rectal: deferred Extremities: normal capillary refill, pelvis stable; No calf tenderness; other (left knee with wound vac in place and post op dressings) Neurologic/Psychiatric: informatics application analyst II-XII nml as tested, no motor/sensory deficits, alert, normal mood/affect, oriented x 3 Skin: normal color, warm/dry Lymphatic: no adenopathy Assessment/Plan Assessment/Plan (1) Type II diabetes mellitus with complication Status: Chronic Assessment & Plan: 07/19 -pt states he uses 48 units Levemir BID and Novolog 25 units BID, normally only eats twice a day but snacks a lot -discussed with pt that his eating habits here would likely be different than at home, and so we would restart his levemir, but use sliding scale novolog with meals for now -accuchecks AC and HS, sliding scale B per protocol Qualifiers: Qualified Codes: E11.8 - Type 2 diabetes mellitus with unspecified complications; Z79.4 - alf (current) use of insulin (2) Hypertension Status: Chronic Assessment & Plan: 07/19 -resume home meds -amlodipine 5 mg, metoprolol tartrate 50 mg BID Qualifiers: Qualified Codes: I10 - Essential (primary) hypertension (3) Hyperlipidemia Status: Chronic Qualifiers: Qualified Codes: E78.5 - Hyperlipidemia, unspecified (4) S/P total knee arthroplasty Assessment & Plan: defer management to primary team Qualifiers: Qualified Codes: Z96.652 - Presence of left artificial knee joint Clinical Quality Measures DVT/VTE Risk/Contraindication: Risk Factor Score Per Nursin RFS Level Per Nursing on Admit: 4+=Very High Copy Copies To 1: [facility]/RONNIE REED DO July 19, 2017 19:14
[2017-07-19 20:00] VITALS: BP 148/58
[2017-07-19] MEDS: meTOprolol TARTRATE 50 MG (LOPRESSOR) TAB PO SCH (20:52)
[2017-07-19] MEDS: inSUlin DETERMIR 1 UNIT/0.01 ML (LEVEMIR) CHARGE PER UNIT SQ SCH (20:53)
[2017-07-20] VITALS: BP 154/68
[2017-07-20] MEDS: oxyCODONE/APAP 5/325MG (PERCOCET 5) TABLET PO PRN ×6 (03:03→18:52)
[2017-07-20 03:49] VITALS: BP 142/63
[2017-07-20] MEDS: MULTIVIT W/MINERALS TAB (THERAGRAN M) PO SCH (05:05)
[2017-07-20] MEDS: inSUlin ASPART (NovoLOG) 1 UNIT/0.01 ML (CHARGE PER UNIT) SC SCH ×5 (05:05→20:22)
[2017-07-20 05:09] LABS: HEMOGLOBIN 10.6 G/DL (13.3-17.7)
--- NOTE | 2017-07-20 07:49 | Anesthesia-General Post-Op ---
General Patient Condition Mental Status/LOC: Same as Preop Cardiovascular: Satisfactory Nausea/Vomiting: Absent Respiratory: Satisfactory Pain: Controlled Complications: Absent Post Op Complications Complications None Follow Up Care/Instructions Patient Instructions None needed. Anesthesia/Patient Condition Patient Condition Patient is doing well, no complaints, stable vital signs, no apparent adverse anesthesia problems. No complications reported per nursing. TONY SPEAR CRNA July 20, 2017 07:49
--- NOTE | 2017-07-20 07:50 | Progress Note-Standard ---
Standard Progress Note Progress Notes/Assess & Plan Date Seen by Provider: July 20, 2017 Time Seen by Provider: 07:49 Progress/Assessment & Plan Post op check No complaints Radiographs--HW well positioned. No fractures LLE--sym DP pulse with brisk cap refill. sensation intact throughout. Intact DF and PF of toes and ankle s/p LTKA doing well mobilize as able Final Diagnosis No complaints Vital Signs Date Time Temp Pulse Resp B/P (MAP) Pulse Ox O2 Delivery O2 Flow Rate FiO2 07/20/17 05:20 18 07/20/17 03:49 99.2 101 18 142/63 (89) 94 Room Air 07/20/17 00:00 99.8 104 16 154/68 (96) 95 Room Air 07/19/17 21:00 18 07/19/17 20:00 99.3 110 18 148/58 (88) 95 Room Air 07/19/17 17:52 18 07/19/17 16:13 98.4 91 17 146/64 (91) 95 Room Air 07/19/17 12:00 98.2 86 18 129/65 (86) 95 Room Air 07/19/17 11:14 94 Room Air 07/19/17 10:41 18 07/19/17 10:30 97.4 77 20 148/74 (98) 96 Room Air I & O 07/20/17 07:00 Intake Total 2072 ml Output Total 1875 ml Balance 197 ml Laboratory Tests Test 07/19/17 09:33 07/19/17 16:12 07/19/17 20:19 07/20/17 04:42 Range/Units Glucometer 157 H 213 H 214 H 195 H 70-110 MG/DL Test 07/20/17 04:43 Range/Units Hemoglobin 10.6 L 13.3-17.7 G/DL Hematocrit 32 L 40-54 % LLE--dressing intact. Neg SLR. No calf tenderness. NVI distally s/p LTKA PT/OT JARRETT CALLE MD July 20, 2017 07:50
[2017-07-20 08:00] VITALS: BP 141/64
[2017-07-20] MEDS: SENNA W/DOCUSATE (SENOKOT S) TABLET PO SCH ×2 (08:01→20:07)
[2017-07-20] MEDS: ASPIRIN E.C. 81 MG (ECOTRIN) TAB PO SCH (08:01)
[2017-07-20] MEDS: meTOprolol TARTRATE 50 MG (LOPRESSOR) TAB PO SCH ×2 (08:01→20:07)
[2017-07-20] MEDS: amLODIPine 5 MG (NORVASC) TAB PO SCH (08:02)
[2017-07-20] MEDS: inSUlin DETERMIR 1 UNIT/0.01 ML (LEVEMIR) CHARGE PER UNIT SQ SCH ×2 (08:02→20:35)
[2017-07-20] MEDS: ENOXAPARIN 30 MG/0.3 ML (LOVENOX) SYR SC SCH ×2 (08:02→20:07)
[2017-07-20] MEDS: NS IV 1000 ML 1,000 ML IV SCH ×2 (08:50→23:00)
[2017-07-20] MEDS: morphine PCA 30 MG/30 ML VIAL IV PRN ×2 (08:54→20:35)
--- NOTE | 2017-07-20 09:36 | Physical Therapy Daily Note ---
PT Daily Note-Current Subjective Patient agrees to PT. Pain Numeric Pain Scale: 8 Location: Left Location Body Site: Knee Pain Description: Acute Mental Status Patient Orientation: Normal For Age Attachments: IV Transfers Functional [place] Measure 0=Not Assessed/NA 4=Minimal Assistance 1=Total Assistance 5=Supervision or Setup 2=Maximal Assistance 6=Modified [place] 3=Moderate Assistance 7=Complete IndependenceIRFPAI Quality Coding Scale 6 Independent with activity with or without an assistive device 5 Patient requires set up or clean up by helper. Patient completes activity by themselves 4 Supervision or touching assist (CGA). [place] provide cues , steadying assist 3 The helper provides less than half the effort to complete the activity 2 The helper provides more than half the effort to complete the activity 1 Dependent. The helper does all the effort to complete an activity 7 Patient refused to complete or attempt activity 9 The patient did not perform the activity before the current illness or injury 88 Not attempted due to Medical conditions or safety concerns Transfers (B, C, W/C) (FIM): 5 Scootin Rollin Supine to/from Sit: 5 Sit to/from Stand: 5 Weight Bearing Right Lower Extremity: Right Weight Bearing/Tolerated Left Lower Extremity: Left Weight Bearing/Tolerated Gait Training Gait (FIM): 5 Distance (FIM): 3=150 ft Distance: 250' x 2 Gait Level of Assist: 5 Gait Assistive Device: FWW slow, antalgic, step to gait sequence with flexed trunk posture with FWW Exercises Supine Ex: Ankle pumps, Quad Set, Heel Slides, Straight leg raise Supine Reps: 15 (2 sets) Seated Therapy Exercises: Long arc quads Seated Reps: 15 (2 sets) Assessment CPM 0-70 degrees with polar pack in place. Patient progressing with treatment plan. PT educated patient on importance of pain medication and rehab progression. Patient voices understanding. PT to increase activity as tolerated by patient. PT Short Term Goals Short Term Goals Time Frame: July 26, 2017 Transfers (B,C,W/C) (FIM): 5 Gait (FIM): 5 Gait Distance Comment: 150' Gait Level of Assist: 5 Gait Assistive Device: FWW PT Plan Treatment/Plan Treatment Plan: Continue Plan of Care Treatment Plan: Bed Mobility, Education, Functional Activity Pilar, Functional Strength, Gait, Safety, Therapeutic Exercise, Transfers Treatment Duration: July 26, 2017 Frequency: 11 times per week Estimated Hrs Per Day: .25 hour per day (15-30') Patient and/or Family Agrees t: Yes Time/GCodes Time In: 906 Time Out: 930 Total Billed Treatment Time: 24 Total Billed Treatment 1 visit EX 15 min GT 9 min TR BARNES PT July 20, 2017 09:36
--- NOTE | 2017-07-20 09:52 | Progress Note (SOAP) ---
Subjective Subjective/Events-last exam Blood sugars 214 - 195 with home dose of levemir and sliding scale B. Review of Systems Date Seen by Provider: July 20, 2017 Time Seen by Provider: 13:56 General: No Chills, No Night Sweats HEENT: No Head Aches, No Dysphasia Pulmonary: No Dyspnea, No Cough Gastrointestinal: No: Nausea, Vomiting Musculoskeletal: leg pain Neurological: No: Change in speech, Confusion, Seizures Objective Exam Last Set of Vital Signs Vital Signs Date Time Temp Pulse Resp B/P (MAP) Pulse Ox O2 Delivery O2 Flow Rate FiO2 07/20/17 08:54 18 07/20/17 08:20 Room Air 07/20/17 08:00 98.4 100 141/64 (89) 94 Capillary Refill : I&O Intake and Output 07/20/17 00:00 Intake Total 1822 ml Output Total 1275 ml Balance 547 ml Intake Oral 722 ml IV Total 1100 ml Output Urine Total 1275 ml General: Alert, Oriented X3, Cooperative, No Acute Distress HEENT: Atraumatic, EOMI, Mucous Memb Moist/[place] Neck: Supple, No Thyromegaly Lungs: Clear to Auscultation, Normal Air Movement Heart: Regular Rate, Normal S1, Normal S2 (II/ systolic murmur) Abdomen: Normal Bowel Sounds, Soft, No Tenderness Neuro: Normal Speech, Normal Tone, Sensation Intact, Cranial Nerves 3-12 NL Psych/Mental Status: Mental Status NL, Mood NL Results/Procedures Lab Laboratory Tests 07/19/17 16:12: Glucometer 213H 07/19/17 20:19: Glucometer 214H 07/20/17 04:42: Glucometer 195H 07/20/17 04:43: Hemoglobin 10.6L, Hematocrit 32L Assessment/Plan Assessment/Plan (1) Type II diabetes mellitus with complication Status: Chronic Assessment & Plan: 07/19 -pt states he uses 48 units Levemir BID and Novolog 25 units BID, normally only eats twice a day but snacks a lot -discussed with pt that his eating habits here would likely be different than at home, and so we would restart his levemir, but use sliding scale novolog with meals for now -accuchecks AC and HS, sliding scale B per protocol 07/20 -will add 15 units Novolog with meals, continue sliding scale B and levemir 48 units BID Qualifiers: Qualified Codes: E11.8 - Type 2 diabetes mellitus with unspecified complications; Z79.4 - nursing home (current) use of insulin (2) Hypertension Status: Chronic Assessment & Plan: 07/19 -resume home meds -amlodipine 5 mg, metoprolol tartrate 50 mg BID Qualifiers: Qualified Codes: I10 - Essential (primary) hypertension (3) Hyperlipidemia Status: Chronic Qualifiers: Qualified Codes: E78.5 - Hyperlipidemia, unspecified (4) S/P total knee arthroplasty Assessment & Plan: defer management to primary team Qualifiers: Qualified Codes: Z96.652 - Presence of left artificial knee joint Clinical Quality Measures DVT/VTE Risk/Contraindication: Risk Factor Score Per Nursin RFS Level Per Nursing on Admit: 4+=Very High Copy Copies To 1: [facility]/RONNIE REED DO July 20, 2017 09:52
[2017-07-20 12:00] VITALS: BP 135/61
--- NOTE | 2017-07-20 14:38 | Physical Therapy Daily Note ---
PT Daily Note-Current Subjective Patient agrees to PT. No c/o. Pain Numeric Pain Scale: 5-Moderate Pain Location: Left Location Body Site: Knee Pain Description: Acute Mental Status Patient Orientation: Normal For Age Attachments: IV Transfers Functional [place] Measure 0=Not Assessed/NA 4=Minimal Assistance 1=Total Assistance 5=Supervision or Setup 2=Maximal Assistance 6=Modified [place] 3=Moderate Assistance 7=Complete IndependenceIRFPAI Quality Coding Scale 6 Independent with activity with or without an assistive device 5 Patient requires set up or clean up by helper. Patient completes activity by themselves 4 Supervision or touching assist (CGA). [place] provide cues , steadying assist 3 The helper provides less than half the effort to complete the activity 2 The helper provides more than half the effort to complete the activity 1 Dependent. The helper does all the effort to complete an activity 7 Patient refused to complete or attempt activity 9 The patient did not perform the activity before the current illness or injury 88 Not attempted due to Medical conditions or safety concerns Transfers (B, C, W/C) (FIM): 6 Scootin Rollin Supine to/from Sit: 6 Sit to/from Stand: 6 Weight Bearing Right Lower Extremity: Right Weight Bearing/Tolerated Left Lower Extremity: Left Weight Bearing/Tolerated Gait Training Gait (FIM): 5 Distance (FIM): 3=150 ft Distance: 275' Gait Level of Assist: 5 Gait Assistive Device: FWW improved reciprocal pattern Exercises Supine Ex: Ankle pumps, Quad Set, Heel Slides, Straight leg raise Supine Reps: 15 Seated Therapy Exercises: Long arc quads Seated Reps: 15 Assessment Patient much improved from this a.m. PT to increase activity as tolerated by patient. PT Short Term Goals Short Term Goals Time Frame: July 26, 2017 Transfers (B,C,W/C) (FIM): 5 Gait (FIM): 5 Gait Distance Comment: 150' Gait Level of Assist: 5 Gait Assistive Device: FWW PT Plan Treatment/Plan Treatment Plan: Continue Plan of Care Treatment Plan: Bed Mobility, Education, Functional Activity Pilar, Functional Strength, Gait, Safety, Therapeutic Exercise, Transfers Treatment Duration: July 26, 2017 Frequency: 11 times per week Estimated Hrs Per Day: .25 hour per day (15-30') Patient and/or Family Agrees t: Yes Time/GCodes Time In: 1335 Time Out: 1358 Total Billed Treatment Time: 23 Total Billed Treatment 1 visit EX 14 min GT 9 min TR BARNES PT July 20, 2017 14:38
--- NOTE | 2017-07-20 15:38 | Occupational Therapy Eval ---
OT Evaluation-General/PLF Medical Diagnosis Admission Date July 19, 2017 at 06:00 Medical Diagnosis: left TKA Onset Date: July 26, 2017 Therapy Diagnosis Therapy Diagnosis: decr self care, decr funct mobility Height/Weight Height (Feet): 5 Height (Inches): 11.00 Weight (Pounds): 295 Weight (Ounces): 0.0 Precautions Precautions/Isolations: Fall Prevention, Standard Precautions Safety Interventions: None Weight Bear Status Weight Bearing Restriction: Weight Bearing/Tolerated Location Restriction: L LE Referral Physician: Peng Hall Referral Reason: Evaluation/Treatment Medical History Pertinent Medical History: DM, HTN Additional Medical History Cataract surgery. Chronic knee pain. Current History Elective L total knee Reviewed History: Yes Social History Home: Single Level Current Living Status: Other Family (mother lives with him but he is her caregiver) Entry Into Home: Stairs With Railing Steps Into Home: 3 ADL-Prior Level of Function ADL PLOF Comments Pt reported that he has been able to manage his basic self care needs, with occasional trouble putting on socks and shoes. 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 pain reported 5/10 in L knee but not described. Appearance Alert, cooperative Mental Status/Objective Patient Orientation: Person, Place, Time, Situation Attachments: IV Current Glasses/Contacts: Yes Hand Dominance: Right Upper Extremity ROM Grossly WFL bilat Upper Extremity Strength Grossly 5/5 bilat ADL-Treatment ADL-Current Pt reported that he has walked with PT twice today and will do stairs tomorrow. Walked 250' FWW. Has been able to feed himself. Briefly discussed potential ADL equipment for home, including shower chair, toilet riser, replacing shower door with curtains, adding grab bars Functional [place] Measure 0=Not Assessed/NA 4=Minimal Assistance 1=Total Assistance 5=Supervision or Setup 2=Maximal Assistance 6=Modified [place] 3=Moderate Assistance 7=Complete IndependenceIRFPAI Quality Coding Scale 6 Independent with activity with or without an assistive device 5 Patient requires set up or clean up by helper. Patient completes activity by themselves 4 Supervision or touching assist (CGA). [place] provide cues , steadying assist 3 The helper provides less than half the effort to complete the activity 2 The helper provides more than half the effort to complete the activity 1 Dependent. The helper does all the effort to complete an activity 7 Patient refused to complete or attempt activity 9 The patient did not perform the activity before the current illness or injury 88 Not attempted due to Medical conditions or safety concerns Education OT Patient Education: Purpose of tx/functional activities, Rehab process, Use of adapted equipment Teaching Recipient: Patient Teaching Methods: Discussion Response to Teaching: Verbalize Understanding OT Short Term Goals Short Term Goals Transfers (B,C,W/C) (FIM): 5 1=Demonstrate adherence to instructed precautions during ADL tasks. 2=Patient will verbalize/demonstrate understanding of assistive devices/ modifications for ADL. 3=Patient will improve strength/tolerance for activity to enable patient to perform ADL's. OT Train Operator Goals Senior Care Goals Time Frame: July 24, 2017 Grooming(FIM): 6 Bathing(FIM): 6 Upper Body Dressing(FIM): 5 Lower Body Dressing(FIM): 5 Toileting(FIM): 6 Toilet/Commode Transfer(FIM): 6 Shower Transfer(FIM): 5 1=Demonstrate adherence to instructed precautions during ADL tasks. 2=Patient will verbalize/demonstrate understanding of assistive devices/ modifications for ADL. 3=Patient will improve strength/tolerance for activity to enable patient to perform ADL's. OT Education/Plan Problem List/Assessment Assessment: Dependent Transfers, Impaired Self-Care Skills Pt would benefit from skilled OT to increase his independence in basic self care. Discharge Recommendations Plan/Recommendations: Continue POC Treatment Plan/Plan of Care Treatment,Training & Education: Yes Patient would benefit from OT for education, treatment and training to promote independence in ADL's, mobility, safety and/or upper extremity function for ADL' s. Plan of Care: ADL Retraining, Functional Mobility Treatment Duration: July 24, 2017 Frequency: 4 times per week Estimated Hrs Per Day: .5 hour per day (.25 to .5) Agreement: Yes Rehab Potential: Good Time/GCodes Start Time: 14:15 Stop Time: 14:30 Total Time Billed (hr/min): 15 Billed Treatment Time visit, 15 minutes evaluation low intensity SHERITA TAMAYO OT July 20, 2017 15:38
[2017-07-20 16:27] VITALS: BP 151/69
[2017-07-20 20:17] VITALS: BP 132/60
[2017-07-21 00:04] VITALS: BP 142/75
[2017-07-21 04:15] VITALS: BP 130/70
[2017-07-21 04:52] LABS: HEMOGLOBIN 9.5 G/DL (13.3-17.7)
[2017-07-21] MEDS: inSUlin ASPART (NovoLOG) 1 UNIT/0.01 ML (CHARGE PER UNIT) SC SCH ×7 (06:03→20:54)
[2017-07-21] MEDS: MULTIVIT W/MINERALS TAB (THERAGRAN M) PO SCH (06:03)
[2017-07-21] MEDS ORDERED: morphine INJ 4 MG/ML 1 ML (VIAL/SYRINGE) IVP PRN (07:00)
--- NOTE | 2017-07-21 07:00 | Progress Note-Standard ---
Standard Progress Note Progress Notes/Assess & Plan Date Seen by Provider: July 21, 2017 Time Seen by Provider: 06:59 Progress/Assessment & Plan Post op check No complaints Radiographs--HW well positioned. No fractures LLE--sym DP pulse with brisk cap refill. sensation intact throughout. Intact DF and PF of toes and ankle s/p LTKA doing well mobilize as able Final Diagnosis No complaints Vital Signs Date Time Temp Pulse Resp B/P (MAP) Pulse Ox O2 Delivery O2 Flow Rate FiO2 07/21/17 06:00 18 07/21/17 04:15 99.2 97 18 130/70 (90) 95 Room Air 07/21/17 00:04 99.3 92 18 142/75 (97) 95 Room Air 07/20/17 20:17 98.8 91 18 132/60 (84) 92 Room Air 07/20/17 19:52 18 07/20/17 16:27 100.5 93 18 151/69 (96) 94 Room Air 07/20/17 12:00 98.4 102 18 135/61 (85) 95 Room Air 07/20/17 08:54 18 07/20/17 08:20 Room Air 07/20/17 08:00 98.4 100 18 141/64 (89) 94 Room Air I & O 07/21/17 07:00 Intake Total 3780 ml Output Total 2000 ml Balance 1780 ml Laboratory Tests Test 07/20/17 11:05 07/20/17 16:31 07/20/17 20:19 07/21/17 04:15 Range/Units Glucometer 235 H 169 H 138 H 70-110 MG/DL Hemoglobin 9.5 L 13.3-17.7 G/DL Hematocrit 29 L 40-54 % Test 07/21/17 05:46 Range/Units Glucometer 94 70-110 MG/DL LLE- neg SLR. Neg Ashu's. No calf tenderness incision benign s/p LTKA continue PT/OT likely DC tomorrow JARRETT CALLE MD July 21, 2017 07:00
[2017-07-21 08:00] VITALS: BP 139/63
[2017-07-21] MEDS: SENNA W/DOCUSATE (SENOKOT S) TABLET PO SCH ×2 (08:01→20:35)
[2017-07-21] MEDS: ENOXAPARIN 30 MG/0.3 ML (LOVENOX) SYR SC SCH ×2 (08:01→19:48)
[2017-07-21] MEDS: inSUlin DETERMIR 1 UNIT/0.01 ML (LEVEMIR) CHARGE PER UNIT SQ SCH ×2 (08:01→21:07)
[2017-07-21] MEDS: ASPIRIN E.C. 81 MG (ECOTRIN) TAB PO SCH (08:01)
[2017-07-21] MEDS: amLODIPine 5 MG (NORVASC) TAB PO SCH (08:01)
[2017-07-21] MEDS: oxyCODONE/APAP 5/325MG (PERCOCET 5) TABLET PO PRN ×4 (08:01→19:52)
[2017-07-21] MEDS: meTOprolol TARTRATE 50 MG (LOPRESSOR) TAB PO SCH ×2 (08:01→20:35)
--- NOTE | 2017-07-21 09:27 | Occupational Ther Daily Note ---
OT Current Status-Daily Note Subjective Pt seen inroom, in bed with CPM. No pain mentioned. Appearance Alert, cooperative Mental Status/Objective Functional [place] Measure 0=Not Assessed/NA 4=Minimal Assistance 1=Total Assistance 5=Supervision or Setup 2=Maximal Assistance 6=Modified [place] 3=Moderate Assistance 7=Complete [place] ADL-Treatment Pt was dressed - said he knew modified technique for donning pants. Discussed modified techniques for putting on SHERIE hose and socks and also showed pt sock aids. Discussed with pt and family different ways to make toilet taller at home if he needs it and where to purchase items if he finds he needs help once he gets home. All goals met to pt satisfaction. No questions or concerns regarding ADLs. DC OT Education OT Patient Education: Modified ADL techniques, Purpose of tx/functional activities, Transfer techniques, Use of adapted equipment Teaching Recipient: Patient Teaching Methods: Demonstration, Discussion Response to Teaching: Verbalize Understanding OT Short Term Goals Short Term Goals Transfers (B,C,W/C) (FIM): 5 1=Demonstrate adherence to instructed precautions during ADL tasks. 2=Patient will verbalize/demonstrate understanding of assistive devices/ modifications for ADL. 3=Patient will improve strength/tolerance for activity to enable patient to perform ADL's. OT Snf Goals Strip Cutting Machine Operator Goals Time Frame: July 24, 2017 Grooming(FIM): 6 Bathing(FIM): 6 Upper Body Dressing(FIM): 5 Lower Body Dressing(FIM): 5 Toileting(FIM): 6 Toilet/Commode Transfer(FIM): 6 Shower Transfer(FIM): 5 1=Demonstrate adherence to instructed precautions during ADL tasks. 2=Patient will verbalize/demonstrate understanding of assistive devices/ modifications for ADL. 3=Patient will improve strength/tolerance for activity to enable patient to perform ADL's. OT Education/Plan Problem List/Assessment Pt would benefit from skilled OT to increase his independence in basic self care. Discharge Recommendations Plan/Recommendations: Discharge/Goals Met (to patient satisfaction) Treatment Plan/Plan of Care Patient would benefit from OT for education, treatment and training to promote independence in ADL's, mobility, safety and/or upper extremity function for ADL' s. Plan of Care: ADL Retraining, Functional Mobility Treatment Duration: July 24, 2017 Frequency: 4 times per week Estimated Hrs Per Day: .5 hour per day (.25 to .5) Agreement: Yes Rehab Potential: Good Time/GCodes Start Time: 09:10 Stop Time: 09:20 Total Time Billed (hr/min): 10 Billed Treatment Time visit, 10 minutes ADL SHERITA TAMAYO OT July 21, 2017 09:27
--- NOTE | 2017-07-21 09:34 | Physical Therapy Daily Note ---
PT Daily Note-Current Subjective Patient agrees to PT. Reports increase in left knee pain. Pain Numeric Pain Scale: 7 Location: Left Location Body Site: Knee Pain Description: Acute Mental Status Patient Orientation: Normal For Age Transfers Functional [place] Measure 0=Not Assessed/NA 4=Minimal Assistance 1=Total Assistance 5=Supervision or Setup 2=Maximal Assistance 6=Modified [place] 3=Moderate Assistance 7=Complete IndependenceIRFPAI Quality Coding Scale 6 Independent with activity with or without an assistive device 5 Patient requires set up or clean up by helper. Patient completes activity by themselves 4 Supervision or touching assist (CGA). [place] provide cues , steadying assist 3 The helper provides less than half the effort to complete the activity 2 The helper provides more than half the effort to complete the activity 1 Dependent. The helper does all the effort to complete an activity 7 Patient refused to complete or attempt activity 9 The patient did not perform the activity before the current illness or injury 88 Not attempted due to Medical conditions or safety concerns Transfers (B, C, W/C) (FIM): 6 Scootin Rollin Supine to/from Sit: 6 Sit to/from Stand: 6 Weight Bearing Right Lower Extremity: Right Weight Bearing/Tolerated Left Lower Extremity: Left Weight Bearing/Tolerated Gait Training Gait (FIM): 6 Distance (FIM): 3=150 ft Distance: 300' x 2 Gait Level of Assist: 6 Gait Assistive Device: FWW steady, antalgic, reciprocal pattern Stair Training Stair Training: Handrails/: 2 handrails Stairs (FIM): 6 #of Steps: 12 Stairs: Pattern: Step to Level of Assist: 6 Exercises Supine Ex: Ankle pumps, Quad Set, Heel Slides Supine Reps: 15 Seated Therapy Exercises: Long arc quads Seated Reps: 15 Assessment CPM 0-90 degrees with polar pack in place. Patient progressing with treatment plan and will dismiss to home tomorrow after PT. PT Short Term Goals Short Term Goals Time Frame: July 26, 2017 Transfers (B,C,W/C) (FIM): 5 Gait (FIM): 5 Gait Distance Comment: 150' Gait Level of Assist: 5 Gait Assistive Device: FWW PT Plan Treatment/Plan Treatment Plan: Continue Plan of Care Treatment Plan: Bed Mobility, Education, Functional Activity [place], Functional Strength, Gait, Safety, Therapeutic Exercise, Transfers Treatment Duration: July 26, 2017 Frequency: 11 times per week Estimated Hrs Per Day: .25 hour per day (15-30') Patient and/or Family Agrees t: Yes Time/GCodes Time In: 820 Time Out: 850 Total Billed Treatment Time: 30 Total Billed Treatment 1 visit EX 20 min GT 10 min TR BARNES PT July 21, 2017 09:34
--- NOTE | 2017-07-21 13:04 | Physical Therapy Daily Note ---
PT Daily Note-Current Subjective Family present and all agree to PT. Pain Numeric Pain Scale: 5-Moderate Pain Location: Left Location Body Site: Knee Pain Description: Acute Mental Status Patient Orientation: Normal For Age Transfers Functional [place] Measure 0=Not Assessed/NA 4=Minimal Assistance 1=Total Assistance 5=Supervision or Setup 2=Maximal Assistance 6=Modified [place] 3=Moderate Assistance 7=Complete IndependenceIRFPAI Quality Coding Scale 6 Independent with activity with or without an assistive device 5 Patient requires set up or clean up by helper. Patient completes activity by themselves 4 Supervision or touching assist (CGA). [place] provide cues , steadying assist 3 The helper provides less than half the effort to complete the activity 2 The helper provides more than half the effort to complete the activity 1 Dependent. The helper does all the effort to complete an activity 7 Patient refused to complete or attempt activity 9 The patient did not perform the activity before the current illness or injury 88 Not attempted due to Medical conditions or safety concerns Transfers (B, C, W/C) (FIM): 6 Scootin Rollin Supine to/from Sit: 6 Sit to/from Stand: 6 Weight Bearing Right Lower Extremity: Right Weight Bearing/Tolerated Left Lower Extremity: Left Weight Bearing/Tolerated Gait Training Gait (FIM): 6 Distance (FIM): 3=150 ft Distance: 300' Gait Level of Assist: 6 Gait Assistive Device: FWW reciprocal pattern/antalgic Exercises Supine Ex: Ankle pumps, Quad Set, Heel Slides, Straight leg raise Supine Reps: 15 Seated Therapy Exercises: Long arc quads Seated Reps: 15 Assessment Patient progressing well and will dismiss to home tomorrow. Patient has performed steps without difficulty. PT Short Term Goals Short Term Goals Time Frame: July 26, 2017 Transfers (B,C,W/C) (FIM): 5 Gait (FIM): 5 Gait Distance Comment: 150' Gait Level of Assist: 5 Gait Assistive Device: FWW PT Plan Treatment/Plan Treatment Plan: Continue Plan of Care Treatment Plan: Bed Mobility, Education, Functional Activity [place], Functional Strength, Gait, Safety, Therapeutic Exercise, Transfers Treatment Duration: July 26, 2017 Frequency: 11 times per week Estimated Hrs Per Day: .25 hour per day (15-30') Patient and/or Family Agrees t: Yes Time/GCodes Time In: 1225 Time Out: 1235 Total Billed Treatment Time: 10 Total Billed Treatment 1 visit FA 10 min TR BARNES PT July 21, 2017 13:04
[2017-07-21 16:25] VITALS: BP 131/63
--- NOTE | 2017-07-21 21:56 | Progress Note (SOAP) ---
Subjective Subjective/Events-last exam Doing well. Sugars 169-138-94. No acute events overnight. Pt has no complaints, states he is planning on discharge tomorrow. Review of Systems Date Seen by Provider: July 21, 2017 Time Seen by Provider: 12:25 General: No Chills, No Night Sweats, No Malaise HEENT: No Head Aches, No Visual Changes, No Dysphasia Pulmonary: No Dyspnea, No Cough Cardiovascular: No: Chest Pain, Palpitations Gastrointestinal: No: Nausea, Vomiting, Abdominal Pain Genitourinary: No Dysuria, No Retention Musculoskeletal: leg pain; No: neck pain, back pain Neurological: No: Weakness, Numbness, Incoordination, Change in speech, Confusion, Seizures Objective Exam Last Set of Vital Signs Vital Signs Date Time Temp Pulse Resp B/P (MAP) Pulse Ox O2 Delivery O2 Flow Rate FiO2 07/21/17 16:25 98.4 95 20 131/63 (85) 95 Room Air Capillary Refill : I&O Intake and Output 07/21/17 00:00 Intake Total 3430 ml Output Total 2100 ml Balance 1330 ml Intake Oral 1380 ml IV Total 2050 ml Output Urine Total 2100 ml # Voids 3 General: Alert, Oriented X3, Cooperative, No Acute Distress HEENT: Atraumatic, EOMI, Mucous Memb Moist/[place] Neck: Supple, No Thyromegaly Lungs: Clear to Auscultation, Normal Air Movement Heart: Regular Rate, Normal S1, Normal S2, Other (II/ murmur) Abdomen: Normal Bowel Sounds, Soft, No Tenderness Extremities: No Clubbing, No Cyanosis, Normal Pulses Skin: No Rashes, Other (left leg wrapped, dressing clean/dry/intact) Neuro: Normal Speech, Normal Tone, Sensation Intact, Cranial Nerves 3-12 NL Psych/Mental Status: Mental Status NL, Mood NL Results/Procedures Lab Laboratory Tests 07/21/17 04:15: Hemoglobin 9.5L, Hematocrit 29L 07/21/17 05:46: Glucometer 94 07/21/17 11:20: Glucometer 88 07/21/17 16:28: Glucometer 70 07/21/17 20:52: Glucometer 176H Assessment/Plan Assessment/Plan (1) Type II diabetes mellitus with complication Status: Chronic Assessment & Plan: 07/19 -pt states he uses 48 units Levemir BID and Novolog 25 units BID, normally only eats twice a day but snacks a lot -discussed with pt that his eating habits here would likely be different than at home, and so we would restart his levemir, but use sliding scale novolog with meals for now -accuchecks AC and HS, sliding scale B per protocol 07/20 -will add 15 units Novolog with meals, continue sliding scale B and levemir 48 units BID 07/21 -sugars under good control, 169-138, fasting 94 this AM -discussed with pt that he should keep snack in his pocket and by where he will be sitting and near bed, as he will not be able to move as fast as he is used to and if he starts feeling like his sugar is low, he will not be able to get to the kitchen as easily as he could before surgery, and that could lead to falls, etc -pt encouraged to be cautious about his Novolog with meals; that we would not change his dose but he should be careful and cut back his dose to 15-20 units if he is not going to eat much, or if his sugar before eating isn't as high as it usually is; discussed it was unsafe to have lows and we were less worried about mildly high sugars, as his diabetes overall is in excellent control. 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 Reed about possibly increasing amlodipine dose at home -anticipate discharge tomorrow Qualifiers: Qualified Codes: I10 - Essential (primary) hypertension (3) Hyperlipidemia Status: Chronic Qualifiers: Qualified Codes: E78.5 - Hyperlipidemia, unspecified (4) S/P total knee arthroplasty Assessment & Plan: defer management to primary team Qualifiers: Qualified Codes: Z96.652 - Presence of left artificial knee joint (5) Postoperative anemia Status: Acute Assessment & Plan: 07/21 -Hgb 10.6 -->9.5 -pt without symptoms Clinical Quality Measures DVT/VTE Risk/Contraindication: Risk Factor Score Per Nursin RFS Level Per Nursing on Admit: 4+=Very High Copy Copies To 1: ZOE REED MD, MARGARET E DO July 21, 2017 21:56
[2017-07-22 00:26] VITALS: BP 134/71
[2017-07-22 05:15] LABS: HEMOGLOBIN 9.5 G/DL (13.3-17.7)
[2017-07-22] MEDS: inSUlin ASPART (NovoLOG) 1 UNIT/0.01 ML (CHARGE PER UNIT) SC SCH ×3 (05:55→11:06)
[2017-07-22] MEDS: MULTIVIT W/MINERALS TAB (THERAGRAN M) PO SCH (06:00)
--- NOTE | 2017-07-22 07:39 | Progress Note (SOAP) ---
Subjective Subjective/Events-last exam Patient getting ready to go home this morning. Patient has no complaints. No acute events overnight. Review of Systems Date Seen by Provider: July 22, 2017 Time Seen by Provider: 07:40 General: No Chills, No Night Sweats, No Fatigue HEENT: No Head Aches, No Eye Pain, No Dysphasia Pulmonary: No Dyspnea, No Cough Cardiovascular: No: Chest Pain, Palpitations, Edema Gastrointestinal: No: Nausea, Vomiting, Abdominal Pain, Constipation Genitourinary: No Dysuria, No Hematuria Musculoskeletal: leg pain; No: neck pain, back pain Neurological: No: Weakness, Numbness, Incoordination, Change in speech, Confusion, Seizures Objective Exam Last Set of Vital Signs Vital Signs Date Time Temp Pulse Resp B/P (MAP) Pulse Ox O2 Delivery O2 Flow Rate FiO2 07/22/17 00:26 99.6 90 18 134/71 (92) 96 Room Air Capillary Refill : I&O Intake and Output 07/22/17 00:00 Intake Total 2450 ml Output Total 500 ml Balance 1950 ml Intake Oral 1600 ml IV Total 850 ml Output Urine Total 500 ml # Voids 7 # Bowel Movements 2 General: Alert, Oriented X3, Cooperative, No Acute Distress HEENT: Atraumatic, EOMI, Mucous Memb Moist/[place] Neck: Supple, No Thyromegaly Lungs: Clear to Auscultation, Normal Air Movement Heart: Regular Rate, Normal S1, Normal S2, Other (II/ systolic murmur) Abdomen: Normal Bowel Sounds, Soft, No Tenderness Extremities: No Clubbing, No Cyanosis Skin: No Rashes, No Breakdown Neuro: Normal Speech, Normal Tone, Sensation Intact, Cranial Nerves 3-12 NL Psych/Mental Status: Mental Status NL, Mood NL Results/Procedures Lab Laboratory Tests 07/21/17 11:20: Glucometer 88 07/21/17 16:28: Glucometer 70 07/21/17 20:52: Glucometer 176H 07/22/17 04:40: Hemoglobin 9.5L, Hematocrit 28L 07/22/17 05:45: Glucometer 104 Assessment/Plan Assessment/Plan (1) Type II diabetes mellitus with complication Status: Chronic Assessment & Plan: 07/19 -pt states he uses 48 units Levemir BID and Novolog 25 units BID, normally only eats twice a day but snacks a lot -discussed with pt that his eating habits here would likely be different than at home, and so we would restart his levemir, but use sliding scale novolog with meals for now -accuchecks AC and HS, sliding scale B per protocol 07/20 -will add 15 units Novolog with meals, continue sliding scale B and levemir 48 units BID 07/21 -sugars under good control, 169-138, fasting 94 this AM -discussed with pt that he should keep snack in his pocket and by where he will be sitting and near bed, as he will not be able to move as fast as he is used to and if he starts feeling like his sugar is low, he will not be able to get to the kitchen as easily as he could before surgery, and that could lead to falls, etc -pt encouraged to be cautious about his Novolog with meals; that we would not change his dose but he should be careful and cut back his dose to 15-20 units if he is not going to eat much, or if his sugar before eating isn't as high as it usually is; discussed it was unsafe to have lows and we were less worried about mildly high sugars, as his diabetes overall is in excellent control. 07/22 -Glucose over last 24 hours: 15-50-10-176-104 -will plan to change pt's home novolog dose to 15 units with meals for now Qualifiers: Qualified Codes: E11.8 - Type 2 diabetes mellitus with unspecified complications; Z79.4 - [facility] (current) use of insulin (2) Hypertension Status: Chronic Assessment & Plan: 07/19 -resume home meds -amlodipine 5 mg, metoprolol tartrate 50 mg BID 07/21 -increased amlodipine to 10 mg PO for mild HTN, suspect possibly pain induced, will have pt drop back to his previous dose on discharge and check his blood pressure at home -if >140/90, patient should contact Dr. Alvarez about possibly increasing amlodipine dose at home -anticipate discharge tomorrow 07/22 -incorrect entry above; pt remains on 5 mg amlodipine and is normotensive Qualifiers: Qualified Codes: I10 - Essential (primary) hypertension (3) Hyperlipidemia Status: Chronic Qualifiers: Qualified Codes: E78.5 - Hyperlipidemia, unspecified (4) S/P total knee arthroplasty Assessment & Plan: defer management to primary team Qualifiers: Qualified Codes: Z96.652 - Presence of left artificial knee joint (5) Postoperative anemia Status: Acute Assessment & Plan: 07/21 -Hgb 10.6 -->9.5 -pt without symptoms 07/22 -Hgb 10.6 -->9.5 --> 9.5 -pt without symptoms; hgb stable Clinical Quality Measures DVT/VTE Risk/Contraindication: Risk Factor Score Per Nursin RFS Level Per Nursing on Admit: 4+=Very High Copy Copies To 1: [facility]/RONNIE REED DO July 22, 2017 07:39
--- NOTE | 2017-07-22 07:41 | Progress Note-Standard ---
Standard Progress Note Progress Notes/Assess & Plan Date Seen by Provider: July 22, 2017 Time Seen by Provider: 07:39 Progress/Assessment & Plan Post op check No complaints Radiographs--HW well positioned. No fractures LLE--sym DP pulse with brisk cap refill. sensation intact throughout. Intact DF and PF of toes and ankle s/p LTKA doing well mobilize as able Final Diagnosis NO complaints Vital Signs Date Time Temp Pulse Resp B/P (MAP) Pulse Ox O2 Delivery O2 Flow Rate FiO2 07/22/17 00:26 99.6 90 18 134/71 (92) 96 Room Air 07/21/17 16:25 98.4 95 20 131/63 (85) 95 Room Air 07/21/17 09:10 18 07/21/17 08:30 Room Air 07/21/17 08:00 98.8 108 18 139/63 (88) 93 Room Air I & O 07/22/17 07:00 Intake Total 2050 ml Balance 2050 ml Laboratory Tests Test 07/21/17 11:20 07/21/17 16:28 07/21/17 20:52 07/22/17 04:40 Range/Units Glucometer 88 70 176 H 70-110 MG/DL Hemoglobin 9.5 L 13.3-17.7 G/DL Hematocrit 28 L 40-54 % Test 07/22/17 05:45 Range/Units Glucometer 104 70-110 MG/DL LLE--incision clean and dry. No calf tenderness. Neg Bartolome's. SLR with assistance s/p LTKA doing well DC after PT today JARRETT CALLE MD July 22, 2017 07:41
[2017-07-22 08:00] VITALS: BP 150/66
[2017-07-22] MEDS ORDERED: INSU100I14 SQ (08:22)
[2017-07-22] MEDS: amLODIPine 5 MG (NORVASC) TAB PO SCH (09:16)
[2017-07-22] MEDS: meTOprolol TARTRATE 50 MG (LOPRESSOR) TAB PO SCH (09:16)
[2017-07-22] MEDS: ASPIRIN E.C. 81 MG (ECOTRIN) TAB PO SCH (09:16)
[2017-07-22] MEDS: SENNA W/DOCUSATE (SENOKOT S) TABLET PO SCH (09:17)
[2017-07-22] MEDS: ENOXAPARIN 30 MG/0.3 ML (LOVENOX) SYR SC SCH (09:17)
[2017-07-22] MEDS: inSUlin DETERMIR 1 UNIT/0.01 ML (LEVEMIR) CHARGE PER UNIT SQ SCH (09:18)
[2017-07-22] MEDS: oxyCODONE/APAP 5/325MG (PERCOCET 5) TABLET PO PRN (09:23)
--- NOTE | 2017-07-22 11:47 | Physical Therapy Progress Note ---
Therapy Progress Note BUTTONHOLE FACER discusses Pt ed. items over stairs for home, use of ice/polar pack, use of CPM at home, steps for continued PT after discharge both HH & OP. Pt declines CPM again before discharge. Pt resting in bed at end of tx with all needs met, including call light next to pt. 1 visit, FA (15m) Time: [phone] TERRY SALAS BUTTONHOLE FACER July 22, 2017 11:47
[2017-07-22 12:00] VITALS: BP 150/66
--- NOTE | 2017-07-23 00:01 | DISCHARGE SUMMARY ---
DATE OF SERVICE: DISCHARGE DIAGNOSES: 1. Left knee primary osteoarthritis. 2. Diabetes type 2. 3. Hyperlipidemia. 4. Hypertension. PROCEDURE: Left total knee arthroplasty. SUMMARY: The patient is a 67-year-old gentleman, who underwent a left total knee arthroplasty the day of admission. Postoperatively, he did very well. At the time of discharge, his wound was clean and dry. He had no calf tenderness. Negative Homans sign. He had attained independent status with physical therapy. He was tolerating his diet well and tolerating pain with oral pain medication. CONDITION ON DISCHARGE: Good. DISCHARGE DIET: Regular. FOLLOWUP: Follow up is in three weeks. Home physical therapy has been arranged. ACTIVITIES: Weightbearing as tolerated with a walker. DISCHARGE MEDICATIONS: Home medications, aspirin and Percocet as needed for pain. Job ID: [id number] DocumentID: [id number] Dictated Date: 07/22/2017 07:40:08 Dining Car Conductor Date: 07/23/2017 00:00:42 Dictated By: JARRETT CALLE MD
--- NOTE | 2017-07-24 10:51 | Physician Query-Anemia ---
Physician Query-Anemia Query to Physician: Provider's Document Request-Please contact nutrition services assistant listed on document for more information. Dear Provider, In cases where a patient has anemia and blood loss, the medical records coder can never assume a cause and effect relationship. Please document the type of the anemia, if known, on this form as an addendum: *Please exercise your independent, professional judgement when responding. A specific answer is not anticipated or expected. Based on a review/Patient has: Hgb/Hct: Per Dr Bryant (5) Postoperative anemia Status: Acute Assessment & Plan: 07/21 -Hgb 10.6 -->9.5 -pt without symptoms 07/22 -Hgb 10.6 -->9.5 --> 9.5 -pt without symptoms; hgb stable Transfusion: No Type of anemia, if known: Anemia due to: post op acute blood loss Diagnosis of Anemia is not talisha: No in the future, i feel you should query the physician who made the diagnosis If you have questions please contact: Aurist: Santa Kwno Ext: [phone] Thank you for your time and cooperation. Clinical Line Camera Operator/Aurist This is a permanent part of the medical record NURIA KWON July 24, 2017 10:51 JARRETT CALLE MD July 25, 2017 10:55
== END 2017-07-22 12:00 | disposition home health service (06) | DRG 470 ==
LOC: 4TH 06:00 → SURG 06:01 → 4TH 09:42
PROVIDERS: ADMIT Orthopaedic Surgery; ATTEND Orthopaedic Surgery
PROC: 0SRD0J9 Replacement of Left Knee Joint with Synthetic Substitute, Cemented, Open Approach (ICD-10-PCS; principal; 2017-07-19 07:24)
DX: M17.12 Unilateral primary osteoarthritis, left knee (principal); D62 Acute posthemorrhagic anemia; E11.9 Type 2 diabetes mellitus without complications; I10 Essential (primary) hypertension; E78.5 Hyperlipidemia, unspecified; Z79.4 Long term (current) use of insulin
CPT/HCPCS: 36415; 73560; 82962; 85014; 85018; 86850; 86900; 86901; 94664

== ENCOUNTER 2017-09-12 13:20 | Outpatient (CLI) | payer MEDICARE, OTHER ==
[~2017-09-12] VITALS: Ht 180.3 cm; Wt 128.4 kg
[~2017-09-12 13:20] MED LIST changes: +OXYC-197 PO
[2017-09-12 13:30] VITALS: BP 161/71
[2017-09-12 14:06] LABS: BASOPHILS % (AUTO) 0 % (0-10); EOSINOPHILS # (AUTO) 0.2 10^3/uL (0.0-0.3); EOSINOPHILS % (AUTO) 1 % (0-10); HEMATOCRIT 32 % (40-54); HEMOGLOBIN 11.2 G/DL (13.3-17.7); LYMPHOCYTES # (AUTO) 7.1 X 10^3 (1.0-4.0); LYMPHOCYTES % (AUTO) 56 % (12-44); MEAN CORPUSCULAR HEMOGLOBIN 31 PG (25-34); MEAN CORPUSCULAR HGB CONC 35 G/DL (32-36); MEAN CORPUSCULAR VOLUME 88 FL (80-99); MEAN PLATELET VOLUME 10.3 FL (7.4-10.4); MONOCYTES # (AUTO) 0.7 X 10^3 (0.0-1.0); MONOCYTES % (AUTO) 6 % (0-12); NEUTROPHILS # (AUTO) 4.7 X 10^3 (1.8-7.8); NEUTROPHILS % (AUTO) 37 % (42-75); PLATELET COUNT 262 10^3/uL (130-400); RED BLOOD COUNT 3.66 10^6/uL (4.35-5.85); RED CELL DISTRIBUTION WIDTH 14.2 % (10.0-14.5); WHITE BLOOD COUNT 12.7 10^3/uL (4.3-11.0)
[2017-09-12 14:07] LABS: BILIRUBIN,URINE NEGATIVE (NEGATIVE); CLARITY,URINE CLEAR; COLOR,URINE YELLOW; GLUCOSE, URINE (UA) 1+ (NEGATIVE); KETONES,URINE NEGATIVE (NEGATIVE); LEUKOCYTE ESTERASE ,URINE NEGATIVE (NEGATIVE); NITRITE,URINE NEGATIVE (NEGATIVE); PH,URINE 5 (5-9); PROTEIN,URINE 1+ (NEGATIVE); UROBILINOGEN,URINE NORMAL (NORMAL)
[2017-09-12 14:25] LABS: INR 0.9 (0.8-1.4); PROTHROMBIN TIME PATIENT 12.4 SEC (12.2-14.7)
[2017-09-12 14:26] LABS: BACTERIA,URINE NEGATIVE /HPF; SQUAMOUS EPITHELIAL CELL,UR 0-2 /HPF; WBC,URINE RARE /HPF
[2017-09-12 14:28] LABS: ERYTHROCYTE SEDIMENTATION RATE 28 MM/HR (0-30)
[2017-09-12 14:35] LABS: ALANINE AMINOTRANSFERASE 21 U/L (0-55); ALKALINE PHOSPHATASE 104 U/L (40-136); BILIRUBIN,TOTAL 0.4 MG/DL (0.1-1.0); BUN/CREATININE RATIO 17; CALCIUM 9.2 MG/DL (8.5-10.1); CARBON DIOXIDE 20 MMOL/L (21-32); CHLORIDE 105 MMOL/L (98-107); CREATININE SERUM 0.82 MG/DL (0.60-1.30); GFR ESTIMATED > 60; GLUCOSE 146 MG/DL (70-105); POTASSIUM 4.2 MMOL/L (3.6-5.0); SODIUM 136 MMOL/L (135-145); TOTAL PROTEIN 6.5 GM/DL (6.4-8.2)
== END 2017-09-12 13:55 | disposition home or self-care (01) ==
LOC: PREOP 13:20
PROVIDERS: ATTEND Orthopaedic Surgery
DX: Z01.812 Encounter for preprocedural laboratory examination (principal); Z11.2 Encounter for screening for other bacterial diseases
CPT/HCPCS: 36415; 80053; 81000; 85025; 85610; 85652; 86850; 86900; 86901; 87081

== ENCOUNTER 2017-09-19 08:00 | Outpatient (RCR) | payer MEDICARE, OTHER ==
[2017-09-20] MEDS ORDERED: OXYC-197 PO (07:20)
== END 2017-09-19 09:53 | disposition home or self-care (01) ==
PROVIDERS: ATTEND Orthopaedic Surgery
DX: Z47.1 Aftercare following joint replacement surgery (principal); Z96.652 Presence of left artificial knee joint

== ENCOUNTER → 2017-09-19 | Outpatient (CLI) | payer MEDICARE, OTHER | LOC: LAB 13:29 | PROVIDERS: ATTEND Pathology Anatomic Pathology & Clinical Pathology | DX: Z13.0 Encounter for screening for diseases of the blood and blood-forming organs and certain disorders involving the immune mechanism (principal) | CPT/HCPCS: 36415; 86850; 86900; 86901; 88184; 88185 ==

== ENCOUNTER 2017-09-20 05:51 | Inpatient (IN) | payer MEDICARE, OTHER ==
--- NOTE | 2017-09-11 12:16 | HISTORY AND PHYSICAL ---
DATE OF SERVICE: DATE OF ADMISSION: 09/20/2017. REASON FOR ADMISSION: Right total knee arthroplasty. HISTORY OF PRESENT ILLNESS: The patient is a 67-year-old gentleman with complaints of progressive worsening right knee pain and loss of function. He reports catching, locking and functional impairment in the knee. He reports that this has been progressive in nature. He has tried activity modifications, rest and anti-inflammatories without relief. Due to functional impairment and failure to improve with conservative measures, the patient elected to proceed with surgical intervention. REVIEW OF SYSTEMS: No chest pain, no shortness of breath, and no dysuria. PAST MEDICAL HISTORY: Diabetes type 2, hyperlipidemia, and hypertension. PAST SURGICAL HISTORY: Cataract excision, tonsillectomy, and left total knee arthroplasty. FAMILY HISTORY: Noncontributory. PRIMARY CARE PROVIDER: [facility]. MEDICATIONS: Aspirin, fish oil, Amaryl, lisinopril, NovoLog, metformin, lovastatin, amlodipine, and metoprolol. ALLERGIES: No known drug allergies. SOCIAL HISTORY: The patient denies tobacco use and drinks alcohol rarely. RADIOGRAPHS: Revealed varus alignment with complete loss of medial and patellofemoral joint spaces. PHYSICAL EXAMINATION: GENERAL: The patient is well developed, well-nourished, in no acute distress. HEENT: Normocephalic, atraumatic. Pupils are equal, round, reactive to light. Oropharynx is clear. NECK: Supple, no lymphadenopathy. LUNGS: Clear to auscultation bilaterally. HEART: Regular rate and rhythm. ABDOMEN: Soft, nontender, and nondistended. EXTREMITIES: The right knee demonstrates varus alignment, slight effusions noted. There is no erythema or warmth. Range of motion is 0/5/95. No varus valgus laxity. Negative anterior and posterior drawer. The patient ambulates with an antalgic gait. IMPRESSION: Severe right knee osteoarthritis, unresponsive to conservative measures. PLAN: Right total knee arthroplasty. The risks, benefits, options, ramifications and recovery were discussed at length with the patient. He understands and wishes to proceed. He will require inpatient admission due to pain management, comorbidities, and functional impairment. Job ID: [id number] DocumentID: [id number] Dictated Date: 09/11/2017 11:28:20 Carton Liner Date: 09/11/2017 12:15:47 Dictated By: JARRETT CALLE MD
[~2017-09-20] VITALS: Ht 180.3 cm; Wt 128.4 kg
--- OUTSIDE RECORDS SUMMARY | 2017-09-20 05:56 | XMS REPORT ---
Author Author SHADIA BLAIR Organization [facility] Address [address] [place] [address] Care Team Providers Care Survival Equipment Repairer Name Role Phone SHADIA BLAIR Unavailable PROBLEMS Type Condition ICD9-CM Code THN23-ER Code Onset Dates Condition Status SNOMED Code Problem 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 028277901 Problem Other chronic pain G89.29 Active 52929299 Problem Type 2 diabetes mellitus without complications E11.9 Active 476053965 Problem Type 2 diabetes mellitus with hyperglycemia E11.65 Active 495473405 Problem Diabetes type 2, controlled E11.9 Active 35326223 Problem Controlled type 2 diabetes mellitus without complication, without long -term current use of insulin E11.9 Active 873147150 Problem [facility]CI current use of insulin Z79.4 Active 929338856 ALLERGIES No Known Allergies ENCOUNTERS Encounter Location Date Diagnosis [place] [address] [address] July, [place] [address] [address] Jun, Diabetes type 2, controlled E11.9 ; Other chronic pain G89.29 ; Pain in left knee M25.562 and Pain in right knee M25.561 [place] [address] [place] [id number] [place] [address]- [address] May, [place] [address] [place] [id number] [place] [address]- [address] Feb, Other viral agents as the cause of diseases classified elsewhere B97.89 and Acute upper respiratory infection, unspecified J06.9 [place] [address] [place] [id number] [place] [address]- 42[address] Feb, [place] [address] [address] Feb, Type 2 diabetes mellitus without complications E11.9 and continuity reader current use of insulin Z79.4 [facility] [address], [place] [address] Dec, [facility] [address], [place] [address] Dec, [facility] [id number] [place] [address]261- 1048 Nov, Type 2 diabetes mellitus without complications E11.9 and continuity reader current use of insulin Z79.4 [facility] [id number] [place] [address]- 79[address] Nov, [facility] [address] [address] Nov, Controlled type 2 diabetes mellitus without complication, without long-term current use of insulin E11.9 [facility] [address], [place] [address] Nov, Controlled type 2 diabetes mellitus without complication, without long-term current use of insulin E11.9 [facility] [address] [address] Nov, Type 2 diabetes mellitus with other circulatory complications E11.59 [place] [address] [address] Oct, Type 2 diabetes mellitus with hyperglycemia E11.65 [facility] [address] [address] Oct, [facility] [address] [address] Oct, [facility] [address] [address] Oct, Type 2 diabetes mellitus without complications E11.9 [facility] [address] [address] Sep, Type 2 diabetes mellitus with hyperglycemia E11.65 [place] [address] [address] Sep, Type 2 diabetes mellitus with other circulatory complications E11.59 [place] [address] [address] Aug, [place] [address] [place] [id number] [place] [address]- 44[address] July, Controlled type 2 diabetes mellitus without complication, without long-term current use of insulin E11.9 [place] [address] [address] May, [place] [address] [place] [id number] [place] [address] 07846- 1467 Feb, Controlled type 2 diabetes mellitus without complication, without long-term current use of insulin E11.9 [place] [address] [place] [address] 13566- 8795 Jan, Controlled type 2 diabetes mellitus without complication, without long-term current use of insulin E11.9 [place] [id number] [place] [address] 8[address]- 7828 Jan, Type 2 diabetes mellitus with hyperglycemia E11.65 and continuity reader current use of insulin Z79.4 [place] [address] [address] Nov, Diabetes type 2, controlled E11.9 [place] [address] [address] Aug, Type 2 diabetes mellitus with other circulatory complications E11.59 and Hypertension, essential I10 [place] [address] [place] [id number] [address] July, Type 2 diabetes mellitus with hyperglycemia E11.65 and Hypertension, benign I10 [place] [address] [address] May, Type 2 diabetes mellitus with other circulatory complications E11.59 [facility] [address] [address] Apr, Diabetes type 2, controlled E11.9 [facility] [id number] [place] [address] 582041- 8419 Jan, Type 2 diabetes mellitus with other circulatory complications E11.59 [facility] [address] [place] [id number] [place] [address]- 7633 Dec, Type 2 diabetes mellitus with other circulatory complications E11.59 [facility] [id number] [place] [address] 936500- 5597 Aug, Diabetes 250.00 [facility] [address] [place] [id number] [place] [address] 503842- 7620 July, Diabetes 250.00 [facility] [address] [place] [id number] [place] [address] 94[address]- 0953 Jun, [facility] [address] [place] [id number] [address] 39[address] Jun, [facility] [id number] [place] [address]- 6[address] Jun, [facility] [address] [address]- 3[address] Jun, [facility] [address] [address]- 12[address] Jun, [facility] [address], [place] [address] 26[address] May, [facility] [address] [address]- 1487 May, [facility] [address], [place] [address]- 9[address] Apr, [facility] [address] [address]- [address] Apr, [facility] [place] [facility] [address] [id number] [place] [address]- 8717 16 Mar, 2014 [facility] [place] [facility] [address] [id number] [place] [address]- 4677 16 Mar, 2014 [facility] [place] [facility] [address] [id number] [place] [address]- 9934 29 Feb, 2014 [facility] [place] [facility] [address] [id number] [place] [address]- 7269 Feb, [facility] [place] [facility] [address] [id number] [place] [address]- 4502 Feb, [facility] [place] [facility] [address] [id number] [place] [address]- [address] Feb, [facility] [place] [facility] [address] [id number] [place] [address]- 8977 15 Feb, 2014 [facility] [place] [facility] [address] [id number] [place] [address]- 3127 15 Feb, 2014 [facility] [place] [facility] [address] [id number] [place] [address]- 3344 Dec, [facility] [place] [facility] [address] [id number] [place] [address]- 7142 13 Dec, 2013 [facility] [place] [facility] [address] [id number] [place] [address]- 3183 29 Nov, 2013 [facility] [place] [facility] [address] [id number] [place] [address]- 0925 29 Nov, 2013 [facility] [place] [facility] [address] [id number] [place] [address] 2543 29 Nov, 2013 [facility] [place] [facility] [address] [id number] [place] [address]- 2546 29 Nov, 2013 [facility] [place] [facility] [address] [id number] [place] [address]- 2546 17 Nov, 2013 [facility] [place] [facility] [address] [id number] [place] [address]- 8666 Nov, [facility] [place] [facility] [address] [id number] [place] [address]- 7062 Nov, [facility] [place] [facility] [address] [id number] [place] [address]- 0238 Nov, [facility] [place] [facility] [address] [id number] [place] [address]- 4843 Aug, [facility] [place] [facility] [address] [id number] [place] [address]- 9806 Aug, [facility] [place] [facility] [address] [id number] [place] [address]- 5384 Aug, [facility] [place] [facility] [address] [id number] [place] [address]- 9332 Aug, [facility] [place] [facility] [address] [id number] [place] [address]- 9258 July, [facility] [place] [facility] [address] [id number] [place] [address]- 9621 July, [facility] [place] [facility] [address] [id number] [place] [address]- 1021 Jun, [facility] [place] [facility] [address] [id number] [place] [address]- 2114 Jun, [facility] [place] [facility] [address] [id number] [address]- 3876 Jun, [facility] [place] [facility] [address] [id number] [address]- 2842 Jun, [facility] [place] [facility] [address] [id number] [place] [address]- 8980 May, [facility] [place] [facility] [address] [id number] [place] [address]- 0440 May, [facility] [place] [facility] [address] [id number] [place] [address]- 5468 Apr, [facility] [place] [facility] [address] [id number] [place] [address]- 7392 Apr, [facility] [address] [id number] [place] [address]- 1716 Mar, [facility] [address] [id number] [place] [address]- 9207 Mar, [facility] [address] [id number] [place] [address]- 9401 Mar, [facility] [address] [id number] [place] [address]- 8554 Mar, [facility] [address] [id number] [place] [address]- 1424 Feb, [facility] [address] [id number] [place] [address]- 2195 Feb, [facility] [address] [id number] [place] [address]- 1251 Jan, [facility] [address] [id number] [place] [address]- 8985 Jan, [facility] [address] [id number] [place] [address]- 7039 Dec, [facility] [address] [id number] [place] [address]- 6027 Dec, [facility] [address] [id number] [place] [address]- 1555 Dec, [facility] [address] [id number] [place] [address]- 6044 Dec, [facility] [place] [facility] [address] [id number] [place] [address]- 8757 Nov, [facility] [place] [facility] [address] [id number] [place] [address]- 2546 Sep, [facility] [place] [facility] [address] [id number] [place] [address]- 8617 Sep, [facility] [place] [facility] [address] [id number] [place] [address]- 9371 Aug, [facility] [place] [facility] [address] [id number] [place] [address]- 6868 July, [facility] [place] [facility] [address] [id number] [place] [address]- 9872 Jun, [facility] [place] [facility] [address] [id number] [place] [address]- 2989 May, [facility] [address] [id number] [place] [address]- 5023 May, [facility] [place] [facility] [address] [id number] [place] [address]- 3783 May, [facility] [address] [id number] [place] [address]- 4218 May, [facility] [address] [id number] [place] [address]- 5897 May, [facility] [place] [facility] [address] [id number] [place] [address]- 3822 Feb, [facility] [place] [facility] [address] [id number] [place] [address]- 4919 Feb, [facility] [place] [facility] [address] [id number] [place] [address]- 1944 Jan, [facility] [place] [facility] [address] [id number] [address]- 9533 Jan, [facility] [place] [facility] [address] [id number] [place] [address]- 4429 Jan, [facility] [place] [facility] [address] [id number] [place] [address]- 4739 Jan, [facility] [place] [facility] [address] [id number] [place] [address]- 3143 Jan, [facility] [place] [facility] [address] [id number] [address]- 3626 Jan, [facility] [place] [facility] [address] [id number] [place] [address]- 9224 Dec, [facility] [place] [facility] [address] [id number] [place] [address]- 1836 18 Dec, 2011 [facility] [place] [facility] [address] [facility] [id number] [place] [address]- 2056 Dec, [facility] [place] [facility] [address] [id number] [place] [address]- 4084 18 Dec, 2011 [facility] [place] [facility] [address] [id number] [place] [address]- 3292 Dec, [facility] [place] [facility] [address] [id number] [place] [address]- 0026 26 Nov, 2011 [facility] [place] [facility] [address] [facility] [id number] [place] [address]- 8751 18 Nov, 2011 [facility] [place] [facility] [address] [facility] [id number] [place] [address]- 2411 13 Nov, 2011 [facility] [place] [facility] [address] [facility] [id number] [place] [address]- 2782 Sep, [facility] [place] [facility] [address] [facility] [id number] [place] [address]- 0765 Aug, [facility] [place] [facility] [address] [facility] [id number], [place] [address]- 3786 Aug, [facility] [place] [facility] [address] [facility] [id number], [place] [address] 254 May, [facility] [place] [facility] [address] [id number] [place] [address]- 6224 Apr, [facility] [place] [facility] [address] [facility] [id number] [place] [address]- 4394 Mar, [facility] [place] [facility] [address] [facility] [id number] [place] [address]- 6316 Mar, [facility] [place] [facility] [address] [id number] [place] [address]- 1507 28 Dec, 2010 [facility] [place] [facility] [address] [id number] [place] [address]- 9485 11 Sep, 2010 [facility] [place] [facility] [address] [id number] [place] [address] 2010 [facility] [place] [facility] [address] [id number] [place] [address]- 7886 2010 [facility] [place] [facility] [address] [id number] [place] [address]- 2196 11 Jan, 2010 [facility] [place] [facility] [address] [id number] [place] [address]- 6513 08 Jan, 2010 [facility] [place] [facility] [address] [id number] [place] [address]- 8900 10 Nov, 2009 [facility] [place] [facility] [address] [id number] [place] [address]- 5780 15 Feb, 2009 [facility] [place] [facility] [address] [id number] [place] [address]- 7505 15 Feb, 2009 [facility] [place] [facility] [address] [id number] [place] [address]- 6090 16 Jan, 2009 [facility] [place] [facility] [address] [id number] [place] 3401 16 Jan, 2009 [facility] [place] [facility] [address] [id number] [place] [address]- 8171 13 Dec, 2008 [facility] [place] [facility] [address] [id number] [place] [address] 2549 13 Dec, 2008 [facility] [place] [facility] [address] [id number] [place] [address]- 1106 15 Nov, 2008 [facility] [place] [facility] [address] [id number] [place] [address]- 2546 17 Oct, 2008 [facility] [place] [facility] [address] [id number] [place] [address] 2544 Sep, [facility] [address] [facility] [id number] [place] [address]- 0596 Aug, IMMUNIZATIONS No Known Immunizations SOCIAL HISTORY Never Assessed REASON FOR VISIT SEK Urgent Care Follow up- Flu ----DBennettRN PLAN OF CARE VITAL SIGNS Height 71 in 2017-02-23 Weight 288 lbs 2017-02-23 Temperature 98.0 degrees Fahrenheit 2017-02-23 Heart Rate 70 bpm 2017-02-23 Respiratory Rate 24 2017-02-23 BMI 40.16 kg/m2 2017-02-23 Blood pressure systolic 158 mmHg 2017-02-23 Blood pressure diastolic 76 mmHg 2017-02-23 MEDICATIONS Medication Instructions Dosage Frequency Start Date End Date Duration Status Fish Oil 1000 MG Orally Once a day 1 capsule 24h Active Lovastatin 20MG TAKE ONE TABLET BY MOUTH ONCE DAILY WITH A MEAL Active Amaryl 4 MG Orally 2 times per day 1 tablet 90 Active Amlodipine Besylate 5 mg Orally Once a day 1 tablet 24h July, Active NovoLog Flexpen 100 UNIT/ML Subcutaneous before meals inject 25 units Sep, Active Oseltamivir Phosphate 75 MG Orally Twice a day 1 capsule 12h Feb, Active Metoprolol Tartrate 50MG TAKE ONE TABLET BY MOUTH TWICE DAILY WITH MEALS 90 Active Levemir FlexTouch 100 UNIT/ML DX E11.59 2 times a day 40 units 12h Oct, Active Pen [place] 32G X 4 MM subcutaneously 4 times a day as directed with insulin 6h Sep, 90 days Active Metformin HCl 1000MG TAKE ONE TABLET BY MOUTH TWICE DAILY. PT NEEDS SEEN!!! ! 90 Active MethylPREDNISolone 4 MG 1 tablet with food or milk in the morning Feb, Active Lisinopril-Hydrochlorothiazide 20-12.5MG TAKE TWO TABLETS BY MOUTH ONCE DAILY 90 Active Aspirin 81 MG Orally Once a day 1 tablet 24h Active Benzonatate 100 MG Orally Three times a day 1 capsule as needed 8h Feb, Active Azithromycin 250 MG Orally Once a day 2 tablets on the first day, then 1 tablet daily for 4 days 24h Feb, Active RESULTS No Results PROCEDURES No Known procedures INSTRUCTIONS MEDICATIONS ADMINISTERED No Known Medications MEDICAL (GENERAL) HISTORY Type Description Date Medical History hypertension Medical History type II diabetes Medical History hyperlipidemia Medical History chronic pain-knees Surgical History tonsillectomy 1957 Surgical History carderacs removed from both eyes 2017
--- OUTSIDE RECORDS SUMMARY | 2017-09-20 05:57 | XMS REPORT ---
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 964756476 Problem Other chronic pain G89.29 Active 06463509 Problem Type 2 diabetes mellitus without complications E11.9 Active 099262224 Problem Type 2 diabetes mellitus with hyperglycemia E11.65 Active 797343407 Problem Diabetes type 2, controlled E11.9 Active 77614504 Problem Controlled type 2 diabetes mellitus without complication, without long -term current use of insulin E11.9 Active 771560668 Problem half-way current use of insulin Z79.4 Active [id number] ALLERGIES No Information ENCOUNTERS Encounter Location Date Diagnosis [place] [address] [address] Jun, Diabetes type 2, controlled E11.9 ; Other chronic pain G89.29 ; Pain in left knee M25.562 and Pain in right knee M25.561 [place] [address] [place] [id number] [place] [address]- 8228 May, [place] [address] [address]- [address] Feb, Other viral agents as the cause of diseases classified elsewhere B97.89 and Acute upper respiratory infection, unspecified J06.9 [place] [address] [address]- 0991 Feb, [place] [address] [place] [id number] [place] [address] 84711- 6568 Feb, Type 2 diabetes mellitus without complications E11.9 and half-way current use of insulin Z79.4 [facility] [address] [address] Dec, [facility] [address] [place] [id number] [place] [address] 57540- 4866 Dec, [facility] [id number] [place] [address] 60407- 0914 Nov, Type 2 diabetes mellitus without complications E11.9 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 [facility] [address] [place] [id number] [place] [address] 47418- 5066 Nov, [facility] [address] [place] [id number] [place] [address] 32466- 1540 Nov, Controlled type 2 diabetes mellitus without complication, without long-term current use of insulin E11.9 [facility] [id number] [place] [address] 82037- 4366 Nov, Controlled type 2 diabetes mellitus without complication, without long-term current use of insulin E11.9 [facility] [id number] [place] [address] 76233- 1498 Nov, Type 2 diabetes mellitus with other circulatory complications E11.59 [facility] [id number] [place] [address] 74688- 1369 Oct, Type 2 diabetes mellitus with hyperglycemia E11.65 [facility] [id number] [place] [address] 87852- 5208 Oct, [facility] [id number] [address] 6066 Oct, [facility] [id number] [place] [address] 98275- 9936 Oct, Type 2 diabetes mellitus without complications E11.9 [facility] [address] [address] 8225 Sep, Type 2 diabetes mellitus with hyperglycemia E11.65 [facility] [address] [place] [id number] [place] [address] 92520- 5842 Sep, Type 2 diabetes mellitus with other circulatory complications E11.59 [place] [address] [place] [id number] [place] [address] 37259- 8198 Aug, [place] [address] [place] [id number] [place] [address] 953624- 8171 July, Controlled type 2 diabetes mellitus without complication, without long-term current use of insulin E11.9 [place] [address] [place] [id number] [place] [address] 45528- 3011 May, [place] [address] [place] [id number] [place] [address] 06786- 5411 Feb, Controlled type 2 diabetes mellitus without complication, without long-term current use of insulin E11.9 [place] [address] [place] [id number] [place] [address] 98736- 6883 Jan, Controlled type 2 diabetes mellitus without complication, without long-term current use of insulin E11.9 [place] [id number] [place] [address] 33033- 9157 Jan, Type 2 diabetes mellitus with hyperglycemia E11.65 and half-way current use of insulin Z79.4 [place] [id number] [place] [address] 79251- 3789 Nov, Diabetes type 2, controlled E11.9 [place] [id number] [place] [address] 57315- 5525 Aug, Type 2 diabetes mellitus with other circulatory complications E11.59 and Hypertension, essential I10 [place] [id number] [place] [address] 18561- 2037 July, Type 2 diabetes mellitus with hyperglycemia E11.65 and Hypertension, benign I10 [place] [id number] [place] [address] 40498- 2836 May, Type 2 diabetes mellitus with other circulatory complications E11.59 [place] [address] [place] [id number] [place] [address] 05749- 0010 Apr, Diabetes type 2, controlled E11.9 [facility] [address] [address] Jan, Type 2 diabetes mellitus with other circulatory complications E11.59 [facility] [address] [address]- 7816 Dec, Type 2 diabetes mellitus with other circulatory complications E11.59 [facility] [id number] [place] [address] 60159- 8776 Aug, Diabetes 250.00 [facility] [id number] [place] [address] 92859- 8826 July, Diabetes 250.00 [facility] [address] [place] [id number] [place] [address] 090201- 9661 Jun, [facility] [id number] [place] [address] 520276- 9870 Jun, [facility] [address] [address]- 6966 Jun, [facility] [address] [address]- 6283 Jun, [facility] [id number] [address]- 4337 Jun, [facility] [address] [address]- 7994 May, [facility] [id number] [address]- 0267 May, [facility] [id number] [address]- 3342 Apr, [facility] [id number] [address]- 2899 Apr, [facility] [address] [address]- 9656 Mar, [facility] [place] [facility] [address] [id number] [place] [address]- 3541 16 Mar, 2014 [facility] [place] [facility] [address] [id number] [place] [address]- 5071 29 Feb, 2014 [facility] [place] [facility] [address] [id number] [place] [address]- 2886 Feb, [facility] [place] [facility] [address] [id number] [place] [address]- 0901 Feb, [facility] [place] [facility] [address] [id number] [place] [address]- 7042 Feb, [facility] [place] [facility] [address] [id number] [place] [address]- 8384 15 Feb, 2014 [facility] [place] [facility] [address] [id number] [place] [address]- 4674 15 Feb, 2014 [facility] [place] [facility] [address] [id number] [place] [address]- 1305 Dec, [facility] [place] [facility] [address] [id number] [place] [address]- 0770 13 Dec, 2013 [facility] [place] [facility] [address] [id number] [place] [address]- 1535 29 Nov, 2013 [facility] [place] [facility] [address] [id number] [place] [address]- 6896 29 Nov, 2013 [facility] [place] [facility] [address] [id number] [place] [address]- 2540 29 Sep, 2013 [facility] [place] [facility] [address] [id number] [place] [address] 2541 29 Sep, 2013 [facility] [place] [facility] [address] [id number] [place] [address]- 2546 17 Nov, 2013 [facility] [place] [facility] [address] [id number] [place] [address]- 2546 17 Nov, 2013 [facility] [place] [facility] [address] [id number] [place] [address]- 0804 Nov, [facility] [place] [facility] [address] [id number] [place] [address]- 4244 Nov, [facility] [place] [facility] [address] [id number] [place] [address]- 7266 Aug, [facility] [place] [facility] [address] [id number] [place] [address]- 2594 Aug, [facility] [place] [facility] [address] [id number] [place] [address]- 3479 Aug, [facility] [place] [facility] [address] [id number] [place] [address]- 4166 Aug, [facility] [place] [facility] [address] [id number] [place] [address]- 1600 July, [facility] [place] [facility] [address] [id number] [place] [address]- 7904 July, [facility] [place] [facility] [address] [id number] [place] [address]- 9949 Jun, [facility] [place] [facility] [address] [id number] [place] [address]- 5844 Jun, [facility] [place] [facility] [address] [id number] [place] [address]- 7327 Jun, [facility] [place] [facility] [address] [id number] [place] [address]- 5194 Jun, [facility] [place] [facility] [address] [id number] [address]- 3475 May, [facility] [place] [facility] [address] [id number] [place] [address]- 3629 May, [facility] [place] [facility] [address] [id number] [place] [address]- 3794 Apr, [facility] [place] [facility] [address] [id number] [place] [address]- 0083 Apr, [facility] [place] [facility] [address] [id number] [place] [address]- 5957 Mar, [facility] [address] [id number] [place] [address]- 6161 Mar, [facility] [place] [facility] [address] [id number] [place] [address]- 0925 Mar, [facility] [address] [id number] [place] [address]- 5084 Mar, [facility] [place] [facility] [address] [id number] [place] [address]- 0972 Feb, [facility] [place] [facility] [address] [id number] [place] [address]- 5049 Feb, [facility] [place] [facility] [address] [id number] [place] [address]- 0354 Jan, [facility] [address] [id number] [place] [address]- 7817 Jan, [facility] [place] [facility] [address] [id number] [place] [address]- 4660 Dec, [facility] [place] [facility] [address] [id number] [place] [address]- 5693 Dec, [facility] [place] [facility] [address] [id number] [place] [address]- 0770 Dec, [facility] [place] [facility] [address] [id number] [place] [address]- 1583 Dec, [facility] [place] [facility] [address] [id number] [place] [address]- 0610 Nov, [facility] [place] [facility] [address] [id number] [place] [address]- 9649 Sep, [facility] [place] [facility] [address] [id number] [place] [address]- 2546 Sep, [facility] [place] [facility] [address] [id number] [place] [address]- 0185 Aug, [facility] [place] [facility] [address] [id number] [place] [address]- 8428 July, [facility] [address] [id number] [place] [address]- 8396 Jun, [facility] [address] [id number] [place] 6624 May, [facility] [address] [id number] [place] [address]- 0033 May, [facility] [address] [id number] [place] [address]- 7901 May, [facility] [address] [id number] [place] [address]- 7917 May, [facility] [address] [id number] [place] [address]- 4976 May, [facility] [address] [id number] [place] [address]- 5408 Feb, [facility] [address] [id number] [place] [address]- 0055 Feb, [facility] [address] [id number] [place] [address]- 1724 Jan, [facility] [address] [id number] [place] [address]- 1177 Jan, [facility] [address] [id number] [place] [address]- 9511 Jan, [facility] [place] [facility] [address] [id number] [place] [address]- 4234 Jan, [facility] [place] [facility] [address] [id number] [place] [address]- 7195 Jan, [facility] [place] [facility] [address] [id number] [place] 1043 Jan, [facility] [place] [facility] [address] [id number] [place] [address]- 3998 Dec, [facility] [place] [facility] [address] [id number] [place] [address]- 1565 18 Dec, 2011 [facility] [place] [facility] [address] [id number] [place] [address]- 2376 18 Dec, 2011 [facility] [place] [facility] [address] [id number] [place] [address]- 8692 18 Dec, 2011 [facility] [place] [facility] [address] [id number] [place] [address]- 0554 10 Dec, 2011 [facility] [place] [facility] [address] [id number] [place] [address]- 7878 26 Nov, 2011 [facility] [place] [facility] [address] [id number] [place] [address]- 0385 18 Nov, 2011 [facility] [place] [facility] [address] [id number] [place] [address]- 4372 13 Nov, 2011 [facility] [place] [facility] [address] [id number] [place] [address]- 1813 Sep, [facility] [place] [facility] [address] [id number] [place] [address]- 4646 Aug, [facility] [place] [facility] [address] [id number] [place] [address]- 0443 Aug, [facility] [place] [facility] [address] [id number] [place] [address]- 9283 May, [facility] [place] [facility] [address] [id number] [place] [address]- 0341 Apr, [facility] [place] [facility] [address] [id number] [place] [address]- 4216 Mar, [facility] [place] [facility] [address] [id number] [place] [address]- 8551 Mar, [facility] [place] [facility] [address] [id number] [place] [address]- 6996 Dec, [facility] [place] [facility] [address] [id number] [place] [address]- 9290 11 Sep, 2010 [facility] [address] [id number] [place] [address]- 9662 2010 [facility] [place] [facility] [address] [id number] [place] 3326 2010 [facility] [address] [id number] [place] [address]- 2556 11 Jan, 2010 [facility] [place] [facility] [address] [id number] [place] [address]- 1729 08 Jan, 2010 [facility] [address] [id number] [place] [address]- 5807 10 Nov, 2009 [facility] [place] [facility] [address] [id number] [place] [address]- 6042 15 Feb, 2009 [facility] [place] [facility] [address] [id number] [place] [address]- 2425 15 Feb, 2009 [facility] [address] [id number] [place] [address]- 9381 16 Jan, 2009 [facility] [place] [facility] [address] [id number] [place] [address]- 6830 16 Jan, 2009 [facility] [address] [id number] [place] [address]- 2386 13 Dec, 2008 [facility] [place] [facility] [address] [id number] [place] [address]- 7884 13 Dec, 2008 [facility] [place] [facility] [address] [id number] [place] [address] 2544 15 Nov, 2008 [facility] [place] [facility] [address] [id number] [place] [address]- 8140 17 Oct, 2008 [facility] [place] [facility] [address] [id number] [place] [address]- 7516 13 Sep, 2008 [facility] [place] [facility] [address] [id number] [place] [address]- 8367 Aug, IMMUNIZATIONS No Known Immunizations SOCIAL HISTORY Never Assessed REASON FOR VISIT 1 mo f/u DM Ed PLAN OF CARE VITAL [...]
--- OUTSIDE RECORDS SUMMARY | 2017-09-20 05:57 | XMS REPORT ---
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 932687255 Problem Other chronic pain G89.29 Active 73975680 Problem Type 2 diabetes mellitus without complications E11.9 Active 072440520 Problem Type 2 diabetes mellitus with hyperglycemia E11.65 Active 280802090 Problem Diabetes type 2, controlled E11.9 Active 12615446 Problem Controlled type 2 diabetes mellitus without complication, without long -term current use of insulin E11.9 Active 149822356 Problem [facility] current use of insulin Z79.4 Active 914845120 ALLERGIES No Known Allergies ENCOUNTERS Encounter Location Date Diagnosis [place] [address] [address] July, [place] [address] [address] Jun, Diabetes type 2, controlled E11.9 ; Other chronic pain G89.29 ; Pain in left knee M25.562 and Pain in right knee M25.561 [place] [address] [place] [id number] [place] [address]- [address]116 May, [place] [address] [place] [id number] [place] [address]- [address]221 Feb, Other viral agents as the cause of diseases classified elsewhere B97.89 and Acute upper respiratory infection, unspecified J06.9 [place] [address] [place] [id number] [place] [address] 6[address]- [address] Feb, [place] [address] [address] Feb, Type 2 diabetes mellitus without complications E11.9 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 [facility] [address] [address] Dec, [facility] [address], [place] [address] Dec, [facility] [id number] [place] [address]- 9955 Nov, Type 2 diabetes mellitus without complications E11.9 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 [facility] [id number] [place] [address]- 4632 Nov, [facility] [address], [place] [address] Nov, Controlled type 2 diabetes mellitus without complication, without long-term current use of insulin E11.9 [facility] [address], [place] [address] Nov, Controlled type 2 diabetes mellitus without complication, without long-term current use of insulin E11.9 [facility] [address], [place] [address] Nov, Type 2 diabetes mellitus with other circulatory complications E11.59 [place] [address], [place] [address] Oct, Type 2 diabetes mellitus with hyperglycemia E11.65 [facility] [address], [place] [address] 0[address] Oct, [facility] [address], [place] [address] Oct, [facility] [address], [place] [address] 7787 Oct, Type 2 diabetes mellitus without complications E11.9 [facility] [address], [place] [address] 1687 Sep, Type 2 diabetes mellitus with hyperglycemia E11.65 [place] [address], [place] [address] 4[address] Sep, Type 2 diabetes mellitus with other circulatory complications E11.59 [place] [address], [place] [address] 9[address] Aug, [place] [address] [place] [id number] [place] [address] 94[address]- 1482 July, Controlled type 2 diabetes mellitus without complication, without long-term current use of insulin E11.9 [place] [address], [place] [address] May, [place] [address] [place] [id number] [place] [address] 80562- 3368 Feb, Controlled type 2 diabetes mellitus without complication, without long-term current use of insulin E11.9 [place] [address] [place] [address] 02204- 4495 Jan, Controlled type 2 diabetes mellitus without complication, without long-term current use of insulin E11.9 [place] [address] [place] [address]- 4507 Jan, Type 2 diabetes mellitus with hyperglycemia E11.65 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 [place] [address] [address]- 69[address] Nov, Diabetes type 2, controlled E11.9 [place] [address], [place] [address] 9108 Aug, Type 2 diabetes mellitus with other circulatory complications E11.59 and Hypertension, essential I10 [place] [address] [place] [id number] [address] July, Type 2 diabetes mellitus with hyperglycemia E11.65 and Hypertension, benign I10 [place] [address], [place] [address]- 1181 May, Type 2 diabetes mellitus with other circulatory complications E11.59 [facility] [address], [place] [address]- 3[address] Apr, Diabetes type 2, controlled E11.9 [facility] [address] [place] [address] 004514- 6216 Jan, Type 2 diabetes mellitus with other circulatory complications E11.59 [facility] [address] [place] [id number] [place] [address] 84230- 0283 Dec, Type 2 diabetes mellitus with other circulatory complications E11.59 [facility] [address] [place] [address] 401537- 8982 Aug, Diabetes 250.00 [facility] [address] [place] [id number] [place] [address] 289334- 2076 July, Diabetes 250.00 [facility] [address] [place] [id number] [place] [address] 25779- 0890 Jun, [facility] [address] [place] [id number] [address]- 1804 Jun, [facility] [id number] [place] [address] 558[address]- 5483 Jun, [facility] [address], [place] [address]- 6770 Jun, [facility] [address], [place] [address]- 5376 Jun, [facility] [address], [place] [address]- 8[address] May, [facility] [address], [place] [address]- 2105 May, [facility] [address], [place] [address]- 1277 Apr, [facility] [address], [place] [address]- 79[address] Apr, [facility] [place] [facility] [address] [id number] [place] [address]- 8613 16 Mar, 2014 [facility] [place] [facility] [address] [id number] [place] [address]- 5964 16 Mar, 2014 [facility] [place] [facility] [address] [id number] [place] [address]- 8319 29 Feb, 2014 [facility] [place] [facility] [address] [id number] [place] [address]- 3190 Feb, [facility] [place] [facility] [address] [id number] [place] [address]- 6439 Feb, [facility] [place] [facility] [address] [id number] [place] [address]- 5747 Feb, [facility] [place] [facility] [address] [id number] [place] [address]- 1819 15 Feb, 2014 [facility] [place] [facility] [address] [id number] [place] [address]- 5449 15 Feb, 2014 [facility] [place] [facility] [address] [id number] [place] [address]- 1977 Dec, [facility] [place] [facility] [address] [id number] [place] [address]- 2716 13 Dec, 2013 [facility] [place] [facility] [address] [id number] [place] [address]- 2660 29 Nov, 2013 [facility] [place] [facility] [address] [id number] [place] [address]- 4119 29 Nov, 2013 [facility] [place] [facility] [address] [id number] [place] [address] 2544 29 Nov, 2013 [facility] [place] [facility] [address] [id number] [place] [address]- 2546 29 Nov, 2013 [facility] [place] [facility] [address] [id number] [place] [address]- 2546 17 Nov, 2013 [facility] [place] [facility] [address] [id number] [place] [address]- 9678 Nov, [facility] [place] [facility] [address] [id number] [place] [address]- 2416 Nov, [facility] [place] [facility] [address] [id number] [place] [address]- 0241 Nov, [facility] [place] [facility] [address] [id number] [place] [address]- 4301 Aug, [facility] [place] [facility] [address] [id number] [place] [address]- 7248 Aug, [facility] [place] [facility] [address] [id number] [place] [address]- 1971 Aug, [facility] [place] [facility] [address] [id number] [place] [address]- 4171 Aug, [facility] [place] [facility] [address] [id number] [place] [address]- 2473 July, [facility] [place] [facility] [address] [id number] [place] [address]- 4482 July, [facility] [place] [facility] [address] [id number] [place] [address]- 3467 Jun, [facility] [place] [facility] [address] [id number] [place] [address]- 3758 Jun, [facility] [place] [facility] [address] [id number], [place] [address]- 0891 Jun, [facility] [place] [facility] [address] [id number], [place] [address]- 4234 Jun, [facility] [place] [facility] [address] [id number] [place] [address]- 1064 May, [facility] [place] [facility] [address] [id number] [place] [address]- 5880 May, [facility] [place] [facility] [address] [id number] [place] [address]- 5427 Apr, [facility] [place] [facility] [address] [id number] [place] [address]- 7931 Apr, [facility] [address] [id number] [place] [address]- 5425 Mar, [facility] [address] [id number] [place] [address]- 1286 Mar, [facility] [address] [id number] [place] [address]- 3577 Mar, [facility] [address] [id number] [place] [address]- 5780 Mar, [facility] [address] [id number] [place] [address]- 9392 Feb, [facility] [address] [id number] [place] [address]- 5781 Feb, [facility] [address] [id number] [place] [address]- 2374 Jan, [facility] [address] [id number] [place] [address]- 2300 Jan, [facility] [address] [id number] [place] [address]- 5976 Dec, [facility] [address] [id number] [place] [address]- 4979 Dec, [facility] [address] [id number] [place] [address]- 8437 Dec, [facility] [address] [id number] [place] [address]- 4867 Dec, [facility] [place] [facility] [address] [id number] [place] [address]- 0143 Nov, [facility] [place] [facility] [address] [id number] [place] [address]- 2546 Sep, [facility] [place] [facility] [address] [id number] [place] [address]- 4777 Sep, [facility] [place] [facility] [address] [id number] [place] [address]- 0632 Aug, [facility] [place] [facility] [address] [id number] [place] [address]- 9131 July, [facility] [place] [facility] [address] [id number] [place] [address]- 3277 Jun, [facility] [place] [facility] [address] [id number] [place] [address]- 3046 May, [facility] [address] [id number] [place] [address]- 9645 May, [facility] [place] [facility] [address] [id number] [place] [address]- 2580 May, [facility] [address] [id number] [place] [address]- 3768 May, [facility] [address] [id number] [place] [address]- 6687 May, [facility] [place] [facility] [address] [id number] [place] [address]- 9090 Feb, [facility] [place] [facility] [address] [id number] [place] [address]- 3484 Feb, [facility] [place] [facility] [address] [id number] [place] [address]- 9225 Jan, [facility] [place] [facility] [address] [id number], [place] [address]- 4876 Jan, [facility] [place] [facility] [address] [id number] [place] [address]- 4281 Jan, [facility] [place] [facility] [address] [id number] [place] [address]- 5007 Jan, [facility] [place] [facility] [address] [id number] [place] [address]- 4223 Jan, [facility] [place] [facility] [address] [id number], [place] [address]- 4386 Jan, [facility] [place] [facility] [address] [id number] [place] [address]- 9672 Dec, [facility] [place] [facility] [address] [id number] [place] [address]- 8446 18 Dec, 2011 [facility] [place] [facility] [address] [facility] [id number] [place] [address]- 2966 Dec, [facility] [place] [facility] [address] [id number] [place] [address]- 4768 18 Dec, 2011 [facility] [place] [facility] [address] [id number] [place] [address]- 7449 Dec, [facility] [place] [facility] [address] [id number] [place] [address]- 4486 26 Nov, 2011 [facility] [place] [facility] [address] [facility] [id number] [place] [address]- 1788 18 Nov, 2011 [facility] [place] [facility] [address] [facility] [id number] [place] [address]- 1532 13 Nov, 2011 [facility] [place] [facility] [address] [facility] [id number] [place] [address]- 1619 Sep, [facility] [place] [facility] [address] [facility] [id number] [place] [address]- 5343 Aug, [facility] [place] [facility] [address] [facility] [id number], [place] [address]- 6892 Aug, [facility] [place] [facility] [address] [facility]] [id number], [place] [address] 2547 May, [facility] [place] [facility] [address] [id number] [place] [address]- 2269 Apr, [facility] [place] [facility] [address] [facility] [id number] [place] [address]- 1594 Mar, [facility] [place] [facility] [address] [facility] [id number] [place] [address]- 5666 Mar, [facility] [place] [facility] [address] [id number] [place] [address]- 0661 28 Dec, 2010 [facility] [place] [facility] [address] [id number] [place] [address]- 5795 11 Sep, 2010 [facility] [place] [facility] [address] [id number] [place] [address] 2010 [facility] [place] [facility] [address] [id number] [place] [address]- 8826 2010 [facility] [place] [facility] [address] [id number] [place] [address]- 9146 11 Jan, 2010 [facility] [place] [facility] [address] [id number] [place] [address]- 1982 08 Jan, 2010 [facility] [place] [facility] [address] [id number] [place] [address]- 2341 10 Nov, 2009 [facility] [place] [facility] [address] [id number] [place] [address]- 6919 15 Feb, 2009 [facility] [place] [facility] [address] [id number] [place] [address]- 7760 15 Feb, 2009 [facility] [place] [facility] [address] [id number] [place] [address]- 7864 16 Jan, 2009 [facility] [place] [facility] [address] [id number] [place] [address]369 16 Jan, 2009 [facility] [place] [facility] [address] [id number] [place] [address]- 7869 13 Dec, 2008 [facility] [place] [facility] [address] [id number] [place] [address] 2543 13 Dec, 2008 [facility] [place] [facility] [address] [id number] [place] [address]- 8116 15 Nov, 2008 [facility] [place] [facility] [address] [id number] [place] [address]- 2546 17 Oct, 2008 [facility] [place] [facility] [address] [id number] [place] [address] 2543 Sep, [facility] [address] [facility] [place] [id number] [place] [address]- 2546 Aug, IMMUNIZATIONS No Known Immunizations SOCIAL HISTORY Never Assessed REASON FOR VISIT Diabetes- Duane Silverio RN PLAN OF CARE Activity Details Follow Up 4 Months Reason:dm2 3 mo. checkup VITAL SIGNS Height 71 in 2017-02-09 Weight 295 lbs 2017-02-09 Temperature 98.2 degrees Fahrenheit 2017-02-09 Heart Rate 80 bpm 2017-02-09 Respiratory Rate 18 2017-02-09 BMI 41.14 kg/m2 2017-02-09 Blood pressure systolic 182 mmHg 2017-02-09 Blood pressure diastolic 82 mmHg 2017-02-09 MEDICATIONS Medication Instructions Dosage Frequency Start Date End Date Duration Status Pen Elbert 32G X 4 MM subcutaneously 4 times a day as directed with insulin 6h Sep, 90 days Active Amlodipine Besylate 5 mg Orally Once a day 1 tablet 24h July, Active Lisinopril-Hydrochlorothiazide 20-12.5MG TAKE TWO TABLETS BY MOUTH ONCE DAILY 90 Active Lovastatin 20MG TAKE ONE TABLET BY MOUTH ONCE DAILY WITH A MEAL Active Fish Oil 1000 MG Orally Once a day 1 capsule 24h Active Amaryl 4 MG Orally 2 times per day 1 tablet 90 Active Levemir FlexTouch 100 UNIT/ML DX E11.59 2 times a day 40 units 12h Oct, Active NovoLog Flexpen 100 UNIT/ML Subcutaneous before meals inject 25 units Sep, Active Aspirin 81 MG Orally Once a day 1 tablet 24h Active Metformin HCl 1000MG TAKE ONE TABLET BY MOUTH TWICE DAILY. PT NEEDS SEEN!!! ! 90 Active Metoprolol Tartrate 50MG TAKE ONE TABLET BY MOUTH TWICE DAILY WITH MEALS 90 Active RESULTS Name Result Date Reference Range A1C (IN HOUSE) 2017-02-09 A1C IN HOUSE 6.8 4.3 - 5.6 % Previous A1c 7.0 Lot [id number] Exp date 10/2018 PROCEDURES Procedure Date Ordered Result Body Site GLYCATED HEMOGLOBIN TEST Feb 09, 2017 INSTRUCTIONS MEDICATIONS ADMINISTERED No Known Medications MEDICAL (GENERAL) HISTORY Type Description Date Medical History hypertension Medical History type II diabetes Medical History hyperlipidemia Medical History chronic pain-knees Surgical History tonsillectomy 1957 Surgical History carderacs removed from both eyes 2017
--- OUTSIDE RECORDS SUMMARY | 2017-09-20 05:58 | XMS REPORT ---
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 625039727 Problem Other chronic pain G89.29 Active 66520403 Problem Type 2 diabetes mellitus without complications E11.9 Active 368941574 Problem Type 2 diabetes mellitus with hyperglycemia E11.65 Active 616871533 Problem Diabetes type 2, controlled E11.9 Active 24818819 Problem Controlled type 2 diabetes mellitus without complication, without long -term current use of insulin E11.9 Active 814335424 Problem intermediate current use of insulin Z79.4 Active [id number] ALLERGIES No Information ENCOUNTERS Encounter Location Date Diagnosis [place] [address] [address] July, [place] [address] [address] Jun, Diabetes type 2, controlled E11.9 ; Other chronic pain G89.29 ; Pain in left knee M25.562 and Pain in right knee M25.561 [place] [id number] [place] [address]- 1483 May, [place] [address] [place] [id number] [place] [address]- 7069 Feb, Other viral agents as the cause of diseases classified elsewhere B97.89 and Acute upper respiratory infection, unspecified J06.9 [place] [address] [place] [id number] [place] [address]92- [address]79 Feb, [place] [address] [place] [id number] [place] [address]957- 4142 Feb, Type 2 diabetes mellitus without complications E11.9 and intermediate current use of insulin Z79.4 [facility] [address] [address] Dec, [facility] [address] [address] Dec, [facility] [address] [place] [id number] [place] [address] 12503- 2154 Nov, Type 2 diabetes mellitus without complications E11.9 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 [facility] [id number] [place] [address]- 8598 Nov, [facility] [address] [address] Nov, Controlled type 2 diabetes mellitus without complication, without long-term current use of insulin E11.9 [facility] [address] [address] 39[address] Nov, Controlled type 2 diabetes mellitus without complication, without long-term current use of insulin E11.9 [facility] [address] [address] Nov, Type 2 diabetes mellitus with other circulatory complications E11.59 [place] [address] [address] Oct, Type 2 diabetes mellitus with hyperglycemia E11.65 [facility] [address] [address] Oct, [facility] [address] [address] 67[address] Oct, [facility] [address] [address] 92[address] Oct, Type 2 diabetes mellitus without complications E11.9 [facility] [address] [address] Sep, Type 2 diabetes mellitus with hyperglycemia E11.65 [place] [address] [address] 8983 Sep, Type 2 diabetes mellitus with other circulatory complications E11.59 [facility] [address] [address] Aug, [place] [address] [place] [id number] [place] [address] 47[address]- 0144 July, Controlled type 2 diabetes mellitus without complication, without long-term current use of insulin E11.9 [place] [address] [address] 45[address] May, [place] [address] [place] [id number] [place] [address] 17966- 1027 Feb, Controlled type 2 diabetes mellitus without complication, without long-term current use of insulin E11.9 [place] [id number] [place] [address] 59772- 9430 Jan, Controlled type 2 diabetes mellitus without complication, without long-term current use of insulin E11.9 [place] [id number] [place] [address] 57826- 0462 Jan, Type 2 diabetes mellitus with hyperglycemia E11.65 and intermediate current use of insulin Z79.4 [place] [address] [address] 1326 Nov, Diabetes type 2, controlled E11.9 [place] [address] [address] 0[address] Aug, Type 2 diabetes mellitus with other circulatory complications E11.59 and Hypertension, essential I10 [place] [address] [place] [id number] [place] [address] 47894- 7340 July, Type 2 diabetes mellitus with hyperglycemia E11.65 and Hypertension, benign I10 [place] [address] [address]- 64[address] May, Type 2 diabetes mellitus with other circulatory complications E11.59 [facility] [address] [address]- 5[address] Apr, Diabetes type 2, controlled E11.9 [facility] [address] [address] Jan, Type 2 diabetes mellitus with other circulatory complications E11.59 [facility] [id number] [place] [address] 006[address]- 7684 Dec, Type 2 diabetes mellitus with other circulatory complications E11.59 [facility] [address] [address] Aug, Diabetes 250.00 [facility] [address] [place] [id number] [place] [address] 975601- 2900 July, Diabetes 250.00 [facility] [address] [address]- 7301 Jun, [facility] [address] [address]- 8189 Jun, [facility] [address] [address]- 5198 Jun, [facility] [address] [address]- 4[address] Jun, [facility] [address] [address]- 5997 Jun, [facility] [address] [address]- 7546 May, [facility] [address] [address]- 4171 May, [facility] [address] [address] Apr, [facility] [address] [address]- 5160 Apr, [facility] [place] [facility] [address] [id number] [place] [address]- 6586 16 Mar, 2014 [facility] [place] [facility] [address] [id number] [place] [address]- 3069 16 Mar, 2014 [facility] [place] [facility] [address] [id number] [place] [address]- 4002 29 Feb, 2014 [facility] [place] [facility] [address] [id number] [place] [address]- 4890 Feb, [facility] [place] [facility] [address] [id number] [place] [address]- 5808 Feb, [facility] [place] [facility] [address] [id number] [place] [address]- 5822 Feb, [facility] [place] [facility] [address] [id number] [place] [address]- 9772 15 Feb, 2014 [facility] [place] [facility] [address] [id number] [place] [address]- 0225 15 Feb, 2014 [facility] [place] [facility] [address] [id number] [place] [address]- 0227 Dec, [facility] [place] [facility] [address] [id number] [place] [address]- 0866 13 Dec, 2013 [facility] [place] [facility] [address] [id number] [place] [address]- 8326 29 Nov, 2013 [facility] [place] [facility] [address] [id number] [place] [address]- 9250 29 Nov, 2013 [facility] [place] [facility] [address] [id number] [place] [address]- 2548 29 Nov, 2013 [facility] [place] [facility] [address] [id number] [place] [address]- 2546 29 Nov, 2013 [facility] [place] [facility] [address] [id number] [place] [address]- 2546 17 Nov, 2013 [facility] [place] [facility] [address] [id number] [place] [address]- 7694 Nov, [facility] [place] [facility] [address] [id number] [place] [address]- 8298 Nov, [facility] [place] [facility] [address] [id number] [place] [address]- 4969 Nov, [facility] [place] [facility] [address] [id number] [place] [address]- 9827 Aug, [facility] [place] [facility] [address] [id number] [place] [address]- 0364 Aug, [facility] [place] [facility] [address] [id number] [place] [address]- 9417 Aug, [facility] [place] [facility] [address] [id number] [place] [address]- 3596 Aug, [facility] [place] [facility] [address] [id number] [place] [address]- 8824 July, [facility] [place] [facility] [address] [id number] [place] [address]- 8393 July, [facility] [place] [facility] [address] [id number] [place] [address]- 9233 Jun, [facility] [place] [facility] [address] [id number] [place] [address]- 3631 Jun, [facility] [place] [facility] [address] [id number] [place] [address]- 2837 Jun, [facility] [place] [facility] [address] [id number] [address]- 2615 Jun, [facility] [place] [facility] [address] [id number] [place] [address]- 7803 May, [facility] [place] [facility] [address] [id number] [place] [address]- 1077 May, [facility] [place] [facility] [address] [id number] [place] [address]- 6939 Apr, [facility] [place] [facility] [address] [id number] [place] [address]- 0995 Apr, [facility] [address] [id number] [place] [address]- 5498 Mar, [facility] [place] [facility] [address] [id number] [place] [address]- 6871 Mar, [facility] [address] [id number] [place] [address]- 0760 Mar, [facility] [place] [facility] [address] [id number] [place] [address]- 9827 Mar, [facility] [address] [id number] [place] [address] Feb, [facility] [place] [facility] [address] [id number] [place] [address]- 7322 Feb, [facility] [address] [id number] [place] [address]- 4444 Jan, [facility] [place] [facility] [address] [id number] [place] [address]- 5185 Jan, [facility] [place] [facility] [address] [id number] [place] [address]- 9488 Dec, [facility] [place] [facility] [address] [id number] [place] [address]- 3094 Dec, [facility] [place] [facility] [address] [id number] [place] [address]- 9691 Dec, [facility] [place] [facility] [address] [id number] [place] [address]- 2540 Dec, [facility] [place] [facility] [address] [id number] [place] [address]- 2055 Nov, [facility] [place] [facility] [address] [id number] [place] [address]- 2546 Sep, [facility] [place] [facility] [address] [id number] [place] [address]- 7925 Sep, [facility] [place] [facility] [address] [id number] [place] [address]- 2562 Aug, [facility] [address] [id number] [place] [address]- 4947 July, [facility] [address] [id number] [place] [address]- 8123 Jun, [facility] [address] [id number] [place] [address]- 9319 May, [facility] [address] [id number] [place] [address]- 6345 May, [facility] [address] [id number] [place] [address]- 9544 May, [facility] [address] [id number] [place] [address]- 8264 May, [facility] [address] [id number] [place] [address]- 5943 May, [facility] [address] [id number] [place] [address]- 8957 Feb, [facility] [address] [id number] [place] [address]- 5747 Feb, [facility] [address] [id number] [place] [address]- 6829 Jan, [facility] [address] [id number] [place] [address]- 1572 Jan, [facility] [place] [facility] [address] [id number] [place] [address]- 4273 Jan, [facility] [place] [facility] [address] [id number] [place] [address]- 6671 Jan, [facility] [place] [facility] [address] [id number] [place] [address]- 9641 Jan, [facility] [place] [facility] [address] [id number] [address]- 0656 Jan, [facility] [place] [facility] [address] [id number] [place] [address]- 4737 Dec, [facility] [place] [facility] [address] [id number] [place] [address]- 1526 18 Dec, 2011 [facility] [place] [facility] [address] [id number] [place] [address]- 3056 Dec, [facility] [place] [facility] [address] [id number] [place] [address] 2547 18 Dec, 2011 [facility] [place] [facility] [address] [id number] [place] [address]- 4404 Dec, [facility] [place] [facility] [address] [id number] [place] [address]- 8096 26 Nov, 2011 [facility] [place] [facility] [address] [id number] [place] [address]- 4335 18 Nov, 2011 [facility] [place] [facility] [address] [id number] [place] [address]- 0455 13 Nov, 2011 [facility] [place] [facility] [address] [id number] [place] [address]- 5178 Sep, [facility] [place] [facility] [address] [id number] [place] [address]- 0511 Aug, [facility] [place] [facility] [address] [id number] [place] [address]- 4406 Aug, [facility] [place] [facility] [address] [id number] [place] [address]- 4959 May, [facility] [place] [facility] [address] [id number] [place] [address]- 0092 Apr, [facility] [place] [facility] [address] [id number] [place] [address]- 2694 Mar, [facility] [place] [facility] [address] [id number] [place] [address]- 4586 Mar, [facility] [place] [facility] [address] [id number] [place] [address]- 0739 28 Dec, 2010 [facility] [address] [id number] [place] [address]- 3495 11 Sep, 2010 [facility] [place] [facility] [address] [id number] [place] [address]- 7696 2010 [facility] [place] [facility] [address] [id number] [place] [address]- 2796 2010 [facility] [place] [facility] [address] [id number] [place] [address]- 1031 11 Jan, 2010 [facility] [place] [facility] [address] [id number] [place] [address]- 4242 08 Jan, 2010 [facility] [place] [facility] [address] [id number] [place] [address]- 8535 10 Nov, 2009 [facility] [place] [facility] [address] [id number] [place] [address]- 2266 15 Feb, 2009 [facility] [place] [facility] [address] [id number] [place] [address]- 7521 15 Feb, 2009 [facility] [place] [facility] [address] [id number] [place] [address]- 7327 16 Jan, 2009 [facility] [place] [facility] [address] [id number] [place] [address]- 3254 16 Jan, 2009 [facility] [place] [facility] [address] [id number] [place] [address]- 1209 13 Dec, 2008 [facility] [place] [facility] [address] [id number] [place] [address] 2549 13 Dec, 2008 [facility] [place] [facility] [address] [id number] [place] [address]- 6026 15 Nov, 2008 [facility] [place] [facility] [address] [id number] [place] [address]- 2546 17 Oct, 2008 [facility] [place] [facility] [address] [id number] [place] [address]- 2049 Sep, [facility] [address] [facility] [id number] [place] [address]- 5164 Aug, IMMUNIZATIONS No Known Immunizations SOCIAL HISTORY Never Assessed REASON FOR VISIT triage - CBowmanRN PLAN OF CARE VITAL SIGNS MEDICATIONS Unknown Medications RESULTS No Results PROCEDURES No Known procedures INSTRUCTIONS MEDICATIONS ADMINISTERED No Known Medications MEDICAL (GENERAL) HISTORY Type Description Date Medical History hypertension Medical History type II diabetes Medical History hyperlipidemia Medical History chronic pain-knees Surgical History tonsillectomy 1957 Surgical History carderacs removed from both eyes 2017
--- OUTSIDE RECORDS SUMMARY | 2017-09-20 06:06 | XMS REPORT | Continuity of Care Document ---
Author Author [facility] Address Unknown Phone Unavailable Allergies Active Description Code Type Severity Reaction Onset Reported/Identified Relationship to Patient Clinical Status Yes Lisinopril HCTZ Drug Allergy 12/16/2008 Yes No Known Drug Allergies [id number] Drug Allergy Unknown N/A 07/12/2017 Medications There [...] K 401.1 ESSENTIAL HYPERTENSION BENIGN 08/15/2008 ROSSY COAT JOINER LOCKSTITCH, SHADIA T 250.00 DIABETES MELLITUS TYPE 2 08/15/2008 ROSSY COAT JOINER LOCKSTITCH, SHADIA T 401.1 ESSENTIAL HYPERTENSION BENIGN 08/15/2008 ROSSY COAT JOINER LOCKSTITCH, SHADIA T 250.00 DIABETES MELLITUS TYPE 2 08/15/2008 ROSSY COAT JOINER LOCKSTITCH, SHADIA T 401.1 ESSENTIAL HYPERTENSION BENIGN 08/15/2008 ROSSY COAT JOINER LOCKSTITCH, SHADIA T 250.00 DIABETES MELLITUS TYPE 2 08/15/2008 ROSSY COAT JOINER LOCKSTITCH, SHADIA T 401.1 ESSENTIAL HYPERTENSION BENIGN 08/15/2008 ROSSY COAT JOINER LOCKSTITCH, SHADIA T 250.00 DIABETES MELLITUS TYPE 2 08/15/2008 ROSSY COAT JOINER LOCKSTITCH, SHADIA T 401.1 ESSENTIAL HYPERTENSION BENIGN 08/15/2008 ROSSY COAT JOINER LOCKSTITCH, SHADIA T 250.00 DIABETES MELLITUS TYPE 2 08/15/2008 ROSSY COAT JOINER LOCKSTITCH, SHADIA T 401.1 ESSENTIAL HYPERTENSION BENIGN 08/15/2008 DRAPER DO, ADAM K 250.00 DIABETES MELLITUS TYPE 2 08/15/2008 DRAPER DO, ADAM K 401.1 ESSENTIAL HYPERTENSION BENIGN 04/25/2014 DRAPER DO, ADAM K 919.0 ABRASION UNSPECIFIED 07/12/2017 JARRETT CALLE MD Ot M17.12 UNILATERAL PRIMARY OSTEOARTHRITIS, LEFT 07/12/2017 JARRETT CALLE MD Ot R53.83 OTHER FATIGUE 07/12/2017 JARRETT CALLE MD Ot Z01.810 ENCOUNTER FOR PREPROCEDURAL CARDIOVASCUL 07/12/2017 JARRETT CALLE MD Ot Z01.811 ENCOUNTER FOR PREPROCEDURAL RESPIRATORY 07/12/2017 JARRETT CALLE MD Ot Z01.812 ENCOUNTER FOR PREPROCEDURAL LABORATORY E 07/12/2017 JARRETT CALLE MD Ot Z11.2 ENCOUNTER FOR SCREENING FOR OTHER BACTER 07/13/2017 JARRETT CALLE MD Ot M17.12 UNILATERAL PRIMARY OSTEOARTHRITIS, LEFT 07/13/2017 JARRETT CALLE MD Ot R53.83 OTHER FATIGUE 07/13/2017 JARRETT CALLE MD Ot Z01.810 ENCOUNTER FOR PREPROCEDURAL CARDIOVASCUL 07/13/2017 JARRETT CALLE MD Ot Z01.811 ENCOUNTER FOR PREPROCEDURAL RESPIRATORY 07/13/2017 JARRETT CALLE MD, Ot Z01.812 ENCOUNTER FOR PREPROCEDURAL LABORATORY E 07/13/2017 JARRETT CALLE MD, Ot Z11.2 ENCOUNTER FOR SCREENING FOR OTHER BACTER 07/22/2017 JARRETT CALLE MD Ot D62 ACUTE POSTHEMORRHAGIC ANEMIA 07/22/2017 JARRETT CALLE MD, Ot E11.9 TYPE 2 DIABETES MELLITUS WITHOUT COMPLIC 07/22/2017 JARRETT CALLE MD, Ot E78.5 HYPERLIPIDEMIA, UNSPECIFIED 07/22/2017 JARRETT CALLE MD, Ot I10 ESSENTIAL (PRIMARY) HYPERTENSION 07/22/2017 JARRETT CALLE MD, Ot M17.12 UNILATERAL PRIMARY OSTEOARTHRITIS, LEFT 07/22/2017 JARRETT CALLE MD, Ot 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 08/23/2017 JARRETT CALLE MD Ot Z47.1 AFTERCARE FOLLOWING JOINT REPLACEMENT MOSELEY 08/23/2017 JARRETT CALLE MD Ot Z96.652 PRESENCE OF LEFT ARTIFICIAL KNEE JOINT 08/23/2017 JARRETT CALLE MD, Ot Z47.1 AFTERCARE FOLLOWING JOINT REPLACEMENT MOSELEY 08/23/2017 JARRETT CALLE MD, Ot Z96.652 PRESENCE OF LEFT ARTIFICIAL KNEE JOINT 09/13/2017 JARRETT CALLE MD, Ot Z01.812 ENCOUNTER FOR PREPROCEDURAL LABORATORY E 09/13/2017 JARRETT CALLE MD, Ot Z11.2 ENCOUNTER FOR SCREENING FOR OTHER BACTER Procedures Code Description [place] [address] A1C (IN-HOUSE) 05/15/2012 59426 ROUTINE VENIPUNCTURE 05/25/2012 14972 CBC 05/25/2012 30870 CMP 05/25/2012 49098 LIPID PANEL 05/25/2012 8836705 GFR CALC (RESULT ONLY) 05/25/2012 85194 GASTRIN 05/28/2012 23765 A1C (IN-HOUSE) 09/04/2012 69842 A1C (IN-HOUSE) 12/12/2012 54512 MICRO ALBUMIN-IN HOUSE 12/12/2012 79758 MICROALBUMIN 12/12/2012 37006 A1C (IN-HOUSE) 04/01/2013 23639 A1C (IN-HOUSE) 07/15/2013 52885 A1C (IN-HOUSE) 11/15/2013 93696 ROUTINE VENIPUNCTURE 11/20/2013 96968 CBC 11/20/2013 [id number] GFR CALC (RESULT ONLY) 11/20/2013 71425 CMP 11/20/2013 67510 LIPID PANEL 11/20/2013 55456 MICRO ALBUMIN-IN HOUSE 02/17/2014 62941 A1C (IN-HOUSE) 02/17/2014 94996 MICROALBUMIN 02/17/2014 [id number] 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, RICHARD 07/19/2017 Results Test Result Range CBC With Differential/Platelet [...] urinalysis with reflex to culture NO NRG Capillary blood glucose measurement by glucometer (mass/volume) - 07/19/17 06: 34 Capillary blood glucose measurement by glucometer (mass/volume) 124 mg/dL 70-110 Capillary blood glucose measurement by glucometer (mass/volume) - 07/19/17 09: 33 Capillary blood glucose measurement by glucometer (mass/volume) 157 mg/dL 70-110 Blood type T Indirect antibody screen panel - 07/19/17 09:36 ABO+Rh group OP NRG Transfusion band number [id number] NRG Blood group antibody screen NEGATIVE NR Capillary blood glucose measurement by glucometer (mass/volume) - 07/19/17 16: 12 Capillary blood glucose measurement by glucometer (mass/volume) 213 mg/dL 70-110 Capillary blood glucose measurement by glucometer (mass/volume) - 07/19/17 20: 19 Capillary blood glucose measurement by glucometer (mass/volume) 214 mg/dL 70-110 Capillary blood glucose measurement by glucometer (mass/volume) - 07/20/17 04: 42 Capillary blood glucose measurement by glucometer (mass/volume) 195 mg/dL 70-110 Whole blood hemoglobin and hematocrit panel - 07/20/17 04:43 Venous blood hemoglobin measurement (mass/volume) 10.6 g/dL 13.3-17.7 Blood hematocrit (volume fraction) 32 % 40-54 Capillary blood glucose measurement by glucometer (mass/volume) - 07/20/17 11: 05 Capillary blood glucose measurement by glucometer (mass/volume) 235 mg/dL 70-110 Capillary blood glucose measurement by glucometer (mass/volume) - 07/20/17 16: 31 Capillary blood glucose measurement by glucometer (mass/volume) 169 mg/dL 70-110 Capillary blood glucose measurement by glucometer (mass/volume) - 07/20/17 20: 19 Capillary blood glucose measurement by glucometer (mass/volume) 138 mg/dL 70-110 Whole blood hemoglobin and hematocrit panel - 07/21/17 04:15 Venous blood hemoglobin measurement (mass/volume) 9.5 g/dL 13.3-17.7 Blood hematocrit (volume fraction) 29 % 40-54 Capillary blood glucose measurement by glucometer (mass/volume) - 07/21/17 05: 46 Capillary blood glucose measurement by glucometer (mass/volume) 94 mg/dL 70-110 Capillary blood glucose measurement by glucometer (mass/volume) - 07/21/17 11: 20 Capillary blood glucose measurement by glucometer (mass/volume) 88 mg/dL 70-110 Capillary blood glucose measurement by glucometer (mass/volume) - 07/21/17 16: 28 Capillary blood glucose measurement by glucometer (mass/volume) 70 mg/dL 70-110 Capillary blood glucose measurement by glucometer (mass/volume) - 07/21/17 20: 52 Capillary blood glucose measurement by glucometer (mass/volume) 176 mg/dL 70-110 Whole blood hemoglobin and hematocrit panel - 07/22/17 04:40 Venous blood hemoglobin measurement (mass/volume) 9.5 g/dL 13.3-17.7 Blood hematocrit (volume fraction) 28 % 40-54 Capillary blood glucose measurement by glucometer (mass/volume) - 07/22/17 05: 45 Capillary blood glucose measurement by glucometer (mass/volume) 104 mg/dL 70-110 Capillary blood glucose measurement by glucometer (mass/volume) - 07/22/17 11: 05 Capillary blood glucose measurement by glucometer (mass/volume) 141 mg/dL 70-110 PT panel in platelet poor plasma by coagulation assay - 09/12/17 13:43 Prothrombin time (PT) in platelet poor plasma by coagulation assay 12.4 s 12.2-14.7 INR in platelet poor plasma or blood by coagulation assay 0.9 0.8-1.4 Complete urinalysis with reflex to culture - 09/12/17 13:43 Urine color determination YELLOW NRG Urine clarity determination CLEAR NRG Urine pH measurement by test strip 5 5-9 Specific gravity of urine by test strip 1.015 1.016- 1.022 Urine protein assay by test strip, semi-quantitative 1+ NEGATIVE Urine glucose detection by automated test [...] count by microscopy (number/high power field ) RARE NRG Bacteria detection in urine sediment by light microscopy NEGATIVE NRG Squamous epithelial cells detection in urine sediment by light microscopy 0-2 NRG Crystals detection in urine sediment by light microscopy NONE NRG Casts detection in urine sediment by light microscopy NONE NRG Mucus detection in urine sediment by light microscopy NEGATIVE NRG Complete urinalysis with reflex to culture NO NRG Complete blood count (CBC) with automated white blood cell (WBC) differential - 09/12/17 13:43 Blood leukocytes automated count (number/volume) 12.7 10*3/uL 4.3-11.0 Blood erythrocytes automated count (number/volume) 3.66 10*6/uL 4.35-5.85 Venous blood hemoglobin measurement (mass/volume) 11.2 g/dL 13.3-17.7 Blood hematocrit (volume fraction) 32 % 40-54 Automated erythrocyte mean corpuscular volume 88 [foz_us] 80-99 Automated erythrocyte mean corpuscular hemoglobin (mass per erythrocyte) 31 pg 25-34 Automated erythrocyte mean corpuscular hemoglobin concentration measurement ( mass/volume) 35 g/dL 32-36 Automated erythrocyte distribution width ratio 14.2 % 10.0-14.5 Automated blood platelet count (count/volume) 262 10*3/uL 130-400 Automated blood platelet mean volume measurement 10.3 [foz_us] 7.4-10.4 Automated blood neutrophils/100 leukocytes 37 % 42-75 Automated blood lymphocytes/100 leukocytes 56 % 12-44 Blood monocytes/100 leukocytes 6 % 0-12 Automated blood eosinophils/100 leukocytes 1 % 0-10 Automated blood basophils/100 leukocytes 0 % 0-10 Blood neutrophils automated count (number/volume) 4.7 10*3 1.8-7.8 Blood lymphocytes automated count (number/volume) 7.1 10*3 1.0-4.0 Blood monocytes automated count (number/volume) 0.7 10*3 0.0-1.0 Automated eosinophil count 0.2 10*3/uL 0.0-0.3 Automated blood basophil count (count/volume) 0.0 10*3/uL 0.0-0.1 Erythrocyte sedimentation rate by westergren method - 09/12/17 13:43 Erythrocyte sedimentation rate by westergren method 28 mm 0-30 Comprehensive metabolic panel - 09/12/17 13:43 Serum or plasma sodium measurement (moles/volume) 136 mmol/L 135-145 Serum or plasma potassium measurement (moles/volume) 4.2 mmol/L 3.6-5.0 Serum or plasma chloride measurement (moles/volume) 105 mmol/L 98-107 Carbon dioxide 20 mmol/L 21-32 Serum or plasma anion gap determination (moles/volume) 11 mmol/L 5-14 Serum or plasma urea nitrogen measurement (mass/volume) 14 mg/dL 7-18 Serum or plasma creatinine measurement (mass/volume) 0.82 mg/dL 0.60-1.30 Serum or plasma urea nitrogen/creatinine mass ratio 17 NRG Serum or plasma creatinine measurement with calculation of estimated glomerular filtration rate > NRG Serum or plasma glucose measurement (mass/volume) 146 mg/dL 70-105 Serum or plasma calcium measurement (mass/volume) 9.2 mg/dL 8.5-10.1 Serum or plasma total bilirubin measurement (mass/volume) 0.4 mg/dL 0.1-1.0 Serum or plasma alkaline phosphatase measurement (enzymatic activity/volume) 104 U/L 40-136 Serum or plasma aspartate aminotransferase measurement (enzymatic activity/ volume) 16 U/L 5-34 Serum or plasma alanine aminotransferase measurement (enzymatic activity/volume ) 21 U/L 0-55 Serum or plasma protein measurement (mass/volume) 6.5 g/dL 6.4-8.2 Serum or plasma albumin measurement (mass/volume) 4.0 g/dL 3.2-4.5 Blood type T Indirect antibody screen panel - 09/12/17 13:43 ABO+Rh group OP NRG Blood group antibody screen NEGATIVE NRG Methicillin resistant Staphylococcus aureus (MRSA) screening culture - 13:43 Methicillin resistant Staphylococcus aureus (MRSA) screening culture NEG NRG Blood type T Indirect antibody screen panel - 09/19/17 13:50 ABO+Rh group OP NRG Transfusion band number [id number] NRG Blood group antibody screen NEGATIVE NRG Encounters ACCT No. Visit Date/Time Discharge Status Pt. Type Provider Facility Loc./Unit Complaint [id number] 04/25/2014 09:09:00 04/25/2014 23:59:59 CLS Outpatient DRAPER ADAM HOLLY [id number] 03/21/2014 10:20:00 03/21/2014 23:59:59 CLS Outpatient SHADIA BLAIR APRN [id number] 02/17/2014 10:13:00 02/17/2014 23:59:59 CLS Outpatient SHADIA BLAIR APRN [id number] 12/16/2013 09:09:00 12/16/2013 23:59:59 CLS Outpatient SHADIA BLAIR APRN [id number] 11/20/2013 08:07:00 11/20/2013 23:59:59 CLS Outpatient SHADIA BLAIR APRN [id number] 11/15/2013 12:13:00 11/15/2013 23:59:59 CLS Outpatient SHADIA BLAIR APRN [id number] 07/15/2013 09:15:00 07/15/2013 23:59:59 CLS Outpatient ADAM DRAPER DO Izabella [id number] 05/03/2013 08:48:00 05/03/2013 23:59:59 CLS Outpatient ZOE REED MD [id number] 04/01/2013 10:04:00 04/01/2013 23:59:59 CLS Outpatient SHADIA BLAIR APRN [id number] 01/25/2013 08:54:00 01/25/2013 23:59:59 CLS Outpatient BONNY HOLLY ADAM Parekh [id number] 12/26/2012 10:43:00 12/26/2012 23:59:59 CLS Outpatient SHADIA BLAIR APRN [id number] 12/12/2012 14:22:00 12/12/2012 23:59:59 CLS Outpatient SHADIA BLAIR APRN [id number] 09/04/2012 14:22:00 09/04/2012 23:59:59 CLS Outpatient ADAM DRAPER DO Izabella [id number] 05/30/2012 16:04:00 05/30/2012 23:59:59 CLS Outpatient [id number] 05/25/2012 08:09:00 05/25/2012 23:59:59 CLS Outpatient SHADIA BLAIR APRN [id number] 05/15/2012 14:05:00 05/15/2012 23:59:59 CLS Outpatient [id number] 02/08/2012 10:02:00 02/08/2012 23:59:59 CLS Outpatient [id number] 01/11/2012 11:51:00 01/11/2012 23:59:59 CLS Outpatient SHADIA BLAIR APRN [id number] 06/27/2012 10:09:00 Document Registration [id number] 09/12/2017 13:20:00 09/12/2017 13:55:00 DIS Outpatient JARRETT CALLE MD [facility] PREOP OSTEOARTHRITIS RIGHT KNEE [id number] 07/19/2017 06:00:00 07/22/2017 12:00:00 DIS Inpatient JARRETT CALLE MD [facility] 4TH LEFT KNEE OSTEOARTHRITIS [id number] 07/12/2017 10:04:00 07/12/2017 11:10:00 DIS Outpatient JARRETT CALLE MD [facility] PREOP LEFT TOTAL KNEE REPLACEMENT [id number] 09/20/2017 05:51:00 ACT Inpatient JARRETT CALLE MD [facility] SURG OSTEOARTHRITIS RIGHT KNEE [id number] 09/19/2017 13:29:00 ACT Outpatient TR FAY MD [facility] LAB CLL [id number] 09/19/2017 08:00:00 ACT Outpatient JARRETT CALLE MD [facility] REHAB L TKA; BILATERAL PRIMARY OA OF KNEE [id number] 07/16/2016 11:06:00 Document Registration [id number] 09/11/2017 11:00:00 09/11/2017 23:59:59 CLS [facility]
[2017-09-20 06:25] VITALS: BP 147/47
[2017-09-20] MEDS ORDERED: ROCURONIUM 10 MG/ML 5 ML SYRINGE IV ONE (06:33)
[2017-09-20] MEDS ORDERED: proPOfol 200 MG/20 ML (DIPRIVAN) VIAL IV ONE (06:33)
[2017-09-20] MEDS ORDERED: ONDANSETRON 4 MG/2 ML (SDV) Z0FRAN ONE (06:33)
[2017-09-20] MEDS ORDERED: LIDOCAINE PF 2% 5 ML (XYLOCAINE) VIAL ONE ×2 (06:33→06:51)
[2017-09-20] MEDS ORDERED: MIDAZOLAM 2 MG/2 ML (VERSED) VIAL ONE (06:34)
[2017-09-20] MEDS ORDERED: fentaNYL INJECTION 100 MCG/2 ML AMP ONE (06:34)
[2017-09-20] MEDS ORDERED: CEFUROXIME INJECTION 1,500 MG in NS (IVPB) 50 ML IV ONE (06:45)
[2017-09-20] MEDS ORDERED: ROPIVACAINE 5MG/ML 30ML VIAL ONE (06:51)
[2017-09-20] MEDS: LACTATED RINGERS 1,000 ML IV PRN ×2 (06:51→08:50)
--- NOTE | 2017-09-20 07:18 | Progress Note-Pre Operative ---
Pre-Operative Progress Note H&P Reviewed The H&P was reviewed, patient examined and no changes noted. Date Seen by Provider: Sep 20, 2017 Time Seen by Provider: 07:11 Date H&P Reviewed: Sep 20, 2017 Time H&P Reviewed: 07:11 Pre-Operative Diagnosis: right knee primary osteoarthritis JARRETT CALLE MD Sep 20, 2017 07:18
--- NOTE | 2017-09-20 07:19 | Progress Note-Post Operative ---
Post-Operative Progess Note Surgeon (s)/Merchant Patroller (s) Surgeon JARRETT CALLE MD Merchant Patroller: Peng Hall Pre-Operative Diagnosis right knee primary osteoarthritis Post-Operative Diagnosis right knee primary osteoarthritis Procedure & Operative Findings Date of Procedure 09/20/17 Procedure Performed/Findings right total knee arthroplasty Anesthesia Type GETA plus regional Estimated Blood Loss Estimated blood loss (mL): minimal Specimens/Packing Specimens Removed none Packing: none JARRETT CALLE MD Sep 20, 2017 07:19
[2017-09-20] MEDS ORDERED: OXYC-197 PO (07:20)
--- NOTE | 2017-09-20 07:23 | D/C HH Face to Face Order ---
D/C Face to Face Orders Instructions for Patient Patient Instructions/FollowUp: right total knee arthroplasty Physician to follow Patient: 3 weeks Discharge Diet for Home: ADA Diet Patient Data-Allergies,Ht & Wt Patient Allergies: Coded Allergies: No Known Drug Allergies (Unverified , 07/12/17) Height (Feet): 5 Height (Inches): 11.00 Weight (Pounds): 283 Weight (Ounces): 0.0 Home Health Need/Face to Face Date of Face to Face: Sep 20, 2017 Clinical Findings: Instability, Muscle weakness, Pain with ambulation I have seen Pt [id number]: Yes Discharged To: Home Diagnosis/Conditions: right total knee arthroplasty Patient is Homebound due to: Julio Cesar fall risk due to instabilty, Muscle weakness , Pain w/ambulation Homebound Status Due to the above stated illness, injury or surgical procedure (medical condition or diagnosis) and associated clinical findings, the patient is homebound because of his/her inability to leave home except with aid of a supportive device and/or person AND leaving the home requires a considerable and taxing effort or is medically contraindicated. Pt req the following assistanc: Walker Home Health Nursing Orders Home Health Services Order: Physical Therapy-Evaluate & Treat Home Health Infusion Therapy Line Start Date: Sep 20, 2017 Line Start Time: 06 Line Type: Peripheral IV Site Location: Hand Therapy Orders Therapy Orders: PT to assess for OT Therapy Specific Orders: Eval assistive deivces, Gait training, Increase strength/endurance, Provider maintenance therapy, Restore ROM Certify Stmt I certify that this patient is under my care and that I, a nurse practitioner or a physician; a event marketing assistant working with me, had a face to face encounter that - meets the physician face to face encounter requirements with this patient as dated. JARRETT CALLE MD Sep 20, 2017 07:22
[2017-09-20] MEDS ORDERED: diphenhydrAMINE 50 MG/ML INJ (BENADRYL) IVP PRN (07:30)
[2017-09-20] MEDS ORDERED: ACETAMINOPHEN 325 MG TABLET PO PRN (07:30)
[2017-09-20] MEDS ORDERED: ONDANSETRON 4 MG/2 ML (SDV) Z0FRAN IVP PRN ×2 (07:30→09:30)
[2017-09-20] MEDS ORDERED: morphine INJ 10 MG/ML 1ML (SYR OR VIAL) ONE ×2 (08:07→08:52)
[2017-09-20] MEDS ORDERED: SEVOFLURANE (ULTANE) 15 ML INHAL SOLN ONE ×2 (08:52→08:54)
[2017-09-20] MEDS ORDERED: HYDROmorphone 1 MG/ML (DILAUDID) 1 ML SYRINGE IV PRN (09:30)
[2017-09-20] MEDS ORDERED: MEPERIDINE (DEMEROL) INJ 50 MG/ML IVP PRN (09:30)
[2017-09-20] MEDS: morphine INJ 10 MG/ML 1ML (SYR OR VIAL) IVP PRN ×2 (09:45→09:50)
[2017-09-20 10:20] VITALS: BP 136/65
[2017-09-20] MEDS: NS IV 1000 ML 1,000 ML IV SCH ×2 (11:02→23:49)
[2017-09-20] MEDS: morphine PCA 30 MG/30 ML VIAL IV PRN (11:10)
--- NOTE | 2017-09-20 11:10 | Progress Note-Standard ---
Standard Progress Note Progress Notes/Assess & Plan Date Seen by Provider: Sep 20, 2017 Time Seen by Provider: 09:20 Progress/Assessment & Plan post op check No complaints Radiographs--HW well positioned without fracture RLE--intact DP and PT pulses with brisk cap refill. Sensation intact throughout. Intact DF and PF of toes and ankle s/p RTKA mobilize as able JARRETT CALLE MD Sep 20, 2017 11:10
[2017-09-20] MEDS: SENNA W/DOCUSATE (SENOKOT S) TABLET PO SCH ×2 (11:11→20:58)
[2017-09-20] MEDS: oxyCODONE/APAP 5/325MG (PERCOCET 5) TABLET PO PRN ×4 (11:11→23:38)
--- NOTE | 2017-09-20 11:42 | Consultation (CH[facility]) ---
HPI History of Present Illness: Patient is a consult from Dr. Watson. He was admitted for right total knee arthroplasty. Patient is feeling well today and only complains of right knee post operative pain. He denies diarrhea and constipation. Denies fever, dysuria , and shortness of breath. His chronic medical problems include Type 2 diabetes , hypertension and hyperlipidemia. He has no acute complaints this morning. Source: patient Exam Limitations: no limitations Date seen by provider: Sep 20, 2017 Time Seen by Provider: 10:30 Attending Physician Mario Watson MD [facility] Consult Date of Admission Sep 20, 2017 at 05:51 Home Medications Home Medications Reviewed patient Home Medication Reconciliation performed by pharmacy medication reconciliations endoscopy specialty technician and/or nursing. Patients Allergies have been reviewed. Allergies Coded Allergies: No Known Drug Allergies (Unverified , 07/12/17) SFG-Iobnqb-Fayevd Hx Patient Social History Alcohol Use: Rarely Uses Recreational Drug Use: No Recent Foreign Travel: No Contact w/other who traveled: No Recent Hopitalizations: No Recent Infectious Disease Expo: No Physical Abuse Screen: No Sexual Abuse: No Immunizations Up To Date Tetanus Booster (TDap): Unknown Past Medical History Type II Diabetes, Insulin Dependent HTN Hyperlipidemia Chronic Knee Pain Family Medical History Family History: Dementia 19 MOTHER Diabetes mellitus G8 BROTHER G8 SISTER Hypertension G8 BROTHER Respiratory disorder 19 FATHER (lung cancer) Review of Systems ([facility]) Constitutional: no symptoms reported; No chills, No dizziness, No fever, No malaise, No weakness EENTM: no symptoms reported; No blurred vision, No double vision Respiratory: No cough, No dyspnea on exertion, No hemoptysis, No short of breath Cardiovascular: No chest pain, No edema, No palpitations Gastrointestinal: No abdominal pain, No constipation, No diarrhea, No dysphagia , No loss of appetite Genitourinary: No dysuria, No frequency, No hematuria, No hesitancy Musculoskeletal: joint pain Skin: no symptoms reported Psychiatric/Neurological: No Symptoms Reported; Denies Headache Physical Exam-([facility]) Physical Exam Vital Signs VS - Last 72 Hours, by Label 09/20/17 09/20/17 09/20/17 09/20/17 06:25 10:20 12:44 13:59 Temp 97.2 97.4 97.7 Pulse 85 71 82 Resp 18 18 20 B/P (MAP) 147/47 (80) 136/65 (88) 141/65 (90) Pulse Ox 97 94 94 94 O2 Delivery Room Air Room Air Room Air Room Air 09/20/17 09/20/17 16:00 17:19 Temp 98.9 Pulse 92 Resp 20 20 B/P (MAP) 142/65 (90) Pulse Ox 97 O2 Delivery Room Air Capillary Refill : General Appearance: WD/WN, no apparent distress HEENT: PERRL/EOMI, normal ENT inspection, pharynx normal Neck: non-tender, full range of motion, supple, normal inspection Respiratory: chest non-tender, lungs clear, normal breath sounds, no respiratory distress, no accessory muscle use Cardiovascular: normal peripheral pulses, regular rate, rhythm, no edema, no gallop, no JVD, no murmur Gastrointestinal: normal bowel sounds, non tender, soft, no organomegaly Back: normal inspection Extremities: non-tender, normal inspection, no pedal edema, no calf tenderness , normal capillary refill, other (compression present on R leg) Neurologic/Psychiatric: electrical system specialist II-XII nml as tested, no motor/sensory deficits, alert, normal mood/affect, oriented x 3 Skin: normal color, warm/dry Lymphatic: no adenopathy Assessment/Plan Assessment/Plan Admission Status: Inpatient Order (span 2 midnights) Reason for Inpatient Admission: Right total knee arthroplasty Assessment & Plan Hypertension - Continue home medications Diabetes Type 2 - Sliding scale insulin Hyperlipidemia - Continue lovastatin Right total knee arthroplasty - Followed by PT and Ortho - Pain management DVT PPx - Enoxaparin Patient seen and evaluated with student, agree with documentation unless otherwise noted (1) Osteoarthritis of right knee Status: Chronic Assessment & Plan: s/p R total Knee POD #0 (2) Insulin dependent diabetes mellitus Status: Chronic Assessment & Plan: - restarted insulin and SSI A, A1c pending (3) Hypertension Status: Chronic Assessment & Plan: - Restarted home meds Qualifiers: Qualified Codes: I10 - Essential (primary) hypertension (4) Hyperlipidemia Status: Chronic Assessment & Plan: - Restarted home meds Qualifiers: Qualified Codes: E78.2 - Mixed hyperlipidemia Clinical Quality Measures DVT/VTE Risk/Contraindication: Risk Factor Score Per Nursin RFS Level Per Nursing on Admit: 4+=Very High Copy Copies To 1: NAIF TRAYLOR MD, ANGELA M MED STUDENT Sep 20, 2017 11:42 NAIF TRAYLOR MD Sep 20, 2017 19:25
--- NOTE | 2017-09-20 11:55 | Diagnostic Imaging Report ---
INDICATION: Postop right knee. TIME OF EXAM: 9:42 AM FINDINGS: 2 views right knee demonstrate postop changes of total knee arthroplasty. Prosthetic elements are in good position. No fracture or loosening is seen. Overlying skin jared are noted. IMPRESSION: Satisfactory postop appearance to the right knee. Dictated by: Dictated on workstation # [id number]
[2017-09-20 12:44] VITALS: BP 141/65
--- NOTE | 2017-09-20 13:38 | Physical Therapy Evaluation ---
PT Evaluation-General Medical Diagnosis Admission Date Sep 20, 2017 at 05:51 Medical Diagnosis: right TKA Onset Date: Sep 20, 2017 Therapy Diagnosis Therapy Diagnosis: impaired mobility, ROM Height/Weight Height (Feet): 5 Height (Inches): 11.00 Weight (Pounds): 283 Weight (Ounces): 0.0 Precautions Precautions/Isolations: Fall Prevention, Standard Precautions Weight Bear Status Right Lower Extremity: Right Weight Bearing/Tolerated Left Lower Extremity: Left Full Weight Bearing Referral Physician: Peng Hall Reason for Referral: Evaluation/Treatment Medical History Pertinent Medical History: DM, HTN Additional Medical History PAST MEDICAL HISTORY: Diabetes type 2, hyperlipidemia, and hypertension. PAST SURGICAL HISTORY: Cataract excision, tonsillectomy, and left total knee arthroplasty. Social History Home: Single Level Current Living Status: Other Family Entry Into Home: Stairs With Railing PT Steps Into Home: 5 Patient's mother lives with him. Prior/Core FIM Prior Level of Function Functional [place] Measure 0=Not Assessed/NA 4=Minimal Assistance 1=Total Assistance 5=Supervision or Setup 2=Maximal Assistance 6=Modified [place] 3=Moderate Assistance 7=Complete [place] Bed Mobility: 7 Transfers (B,C,W/C) (FIM): 7 Gait: 7 PT Evaluation-Current Subjective Patient sitting EOB pre tx, agrees to PT, states he has 9/10 pain with activity but none at rest. Pt/Family Goals to be independent at home Objective Patient Orientation: Person, Place, Situation Attachments: SCD's, Polar Pack, IV ROM/Strength ROM Lower Extremities right knee flexion 85 degrees, extension +5 degrees Strength Lower Extremities NT Neuromuscular (Tone, Coordination, Reflexes) NT Sensory Vision: Functional Hearing: Functional Sensation Right Lower Extremit: Intact Sensation Left Lower Extremity: Intact Transfers Functional [place] Measure 0=Not Assessed/NA 4=Minimal Assistance 1=Total Assistance 5=Supervision or Setup 2=Maximal Assistance 6=Modified [place] 3=Moderate Assistance 7=Complete [place] Transfers (B, C, W/C) (FIM): 4 Scootin Rollin Supine to/from Sit: 4 Sit to/from Stand: 5 bed t/f WC(FIM only if WC use): 5 Patient needs min assist to get his right leg into bed. Cues for safety and hand placement. Gait Mode of Locomotion: Walk Anticipated Mode of Locomotion: Walk Gait (FIM): 5 Distance: 200' Gait Level of Assist: 5 Gait Persons Needed: 1 Gait Assistive Device: FWW Comments/Gait Description Patient ambulated 200' with a rolling walker with SBA. Brisk pace, good heel strike, slight knee flexion on the right. Balance Sitting Static: Normal Sitting Dynamic: Normal Standing Static: Good Standing Dynamic: Good Treatment supine total knee protocol right side x10 (AP, QS, HS, SAQ, SLR), CPM donned and fit to leg and set at 60/-2, SCD's and polar pack on also. Assessment/Needs Patient has impaired mobility and ROM post right TKA Rehab Potential: Fair PT Short Term Goals Short Term Goals Time Frame: Sep 27, 2017 Transfers (B,C,W/C) (FIM): 6 Gait (FIM): 6 Gait Distance Comment: 300' Gait Assistive Device: FWW Stairs (FIM): 2 # of Steps: 4 Stairs Level of Assist: 5 PT Plan Problem List Problem List: Activity Tolerance, Functional Strength, Safety, Balance, Gait, Transfer, Bed Mobility, ROM Treatment/Plan Treatment Plan: Continue Plan of Care Treatment Plan: Bed Mobility, Education, Functional Activity Pilar, Functional Strength, Gait, Safety, Therapeutic Exercise, Transfers Treatment Duration: Sep 27, 2017 Frequency: 11 times per week Estimated Hrs Per Day: .25 hour per day (15-30') Patient and/or Family Agrees t: Yes Safety Risks/Education Patient Education: Gait Training, Transfer Techniques, Reviewed Use of Ice, Correct Positioning, Safety Issues Teaching Recipient: Patient Teaching Methods: Demonstration, Discussion Response to Teaching: Reinforcement Needed Discharge Recommendations Plan Patient will perform bed mobility and transfer training, balance and endurance training, functional strengthening, stair training, gait training, and education , to improve functional mobility and independence at home. Therapy D/C Recommendations: Home w/ Family Support Time/GCodes Time In: 1305 Time Out: 1330 Total Billed Treatment Time: 25 Total Billed Treatment 1 visit EVL 15' GT 10' TOMÁS RUBIN PT Sep 20, 2017 13:38
--- NOTE | 2017-09-20 14:55 | OPERATIVE REPORT ---
DATE OF SERVICE: 09/20/2017 PREOPERATIVE DIAGNOSIS: Right knee osteoarthritis. POSTOPERATIVE DIAGNOSIS: Right knee osteoarthritis. PROCEDURE: Right total knee arthroplasty. SURGEON: Mario Watson MD. AGENCY SALES DIRECTOR: Peng Hall, who assisted throughout the procedure and closed the incision. ANESTHESIA: General endotracheal plus regional block by Renaldo Baxter CRNA. TOURNIQUET TIME: Approximately 70 minutes at 300 mmHg. ESTIMATED BLOOD LOSS: Minimal. DRAINS: None. COMPLICATIONS: None. MATERIALS: MicroPort cemented size 5 femur, cemented size 5 tibia with a 14 mm insert and cemented size 32 patella. CONDITION: The patient was transported to the recovery room awake and in stable condition. POSTOPERATIVE PLAN: Routine protocol. STATEMENT OF MEDICAL NECESSITY: The patient is a 67-year-old gentleman with progressively worsening right knee pain. He had varus alignment with severe medial and patellofemoral joint space loss. He has tried rest, activity modifications and anti-inflammatories without relief and due to functional impairment and failure to improve with conservative measures, the patient elected to proceed with surgical intervention. DESCRIPTION OF PROCEDURE: After risks and benefits of the procedure were discussed and questions were answered, an informed consent was signed and placed on the chart. The operative site was confirmed in the preoperative holding area initialed by the surgeon. The patient was then transported to the operating room. After adequate levels of general endotracheal anesthetic were obtained, a timeout was called confirming the operative site. The right lower extremity was then prepped and draped in the usual sterile fashion with the leg elevated and the knee flexed. Tourniquet was inflated to 300 mmHg. A standard anterior approach was utilized. Hemostasis was obtained with cautery and a medial parapatellar arthrotomy was performed leaving 1 cm cuff on the patella for the later reattachment. A portion of the fat pad was resected. The ACL was resected. A subperiosteal release was performed on the proximal medial tibia with curved osteotome being careful to stay on the bony surface. Intramedullary guide was passed into the femur and the distal cutting block was placed and distal cut was made. The femur sized to a size 5. The 5 cutting block was placed parallel to the epicondylar axis and cuts were made from posterior to anterior. The trochlear guide was placed and the trochlear cut was made. A subperiosteal release was then carefully performed on the posterior distal femur, being careful to stay on the bony surface. Attention was then turned to the tibia. The intramedullary guide was passed. The drop nolan transected the intermalleolar axis and the cut was made. The five baseplate was placed, which provided excellent coverage. The drop nolan again transected the intramedullary axis and this was prepared with a drill and keel punch. The trials were inserted and the patella was prepared by resecting 10 mm off the undersurface, using the freehand technique, the peg guide was placed and the peg holes were drilled. The trials were inserted with 14 mm insert. Full extension was easily obtained and 20 degrees of flexion with gravity was easily obtained. The patella tracked well. There was no anterior/posterior or medial/lateral laxity in flexion or extension. The trials were removed. The joint was copiously irrigated with pulse lavage and the bone ends were irrigated and dried. The tibial baseplate was cemented into position and excessive cement was removed. The superior surface was irrigated and dried and the polyethylene insert was placed. The distal femur was irrigated and dried and the femoral prosthesis was cemented into position. Excessive cement was removed. The knee was brought into full extension until the cement had cured. The undersurface of the patella was irrigated and dried and the patellar button was cemented into position, again removing excessive cement. Once the cement had cured, the knee was taken through range of motion with full extension easily obtained 120 degrees of flexion with gravity was easily obtained. The patella tracked well. There was no anterior/posterior or medial/lateral laxity in flexion or extension. The joint was copiously irrigated with pulse lavage. Arthrotomy was closed with #2 [place] in [id number] interrupted fashion. The knee was flexed. The patella tracked well with no undue tension noted at the repair site. The subcutaneous tissues were irrigated using a total of 6 liters throughout the procedure. The subcutaneous tissue was closed in the deep layer with 0 Vicryl, superficial with 2-0 Vicryl and staple was used on the skin. A soft dressing was applied. The tourniquet was deflated. The patient was transferred to the recovery room awake and in stable condition. Job ID: [id number] DocumentID: [id number] Dictated Date: 09/20/2017 09:26:46 Administrative Liaison Date: 09/20/2017 14:54:59 Dictated By: MARIO WATSON MD
[2017-09-20 16:00] VITALS: BP 142/65
[2017-09-20] MEDS: CEFUROXIME INJECTION 750 MG in NS (IVPB) 50 ML IV SCH ×2 (16:20→23:49)
[2017-09-20 19:36] VITALS: BP 150/69
[2017-09-20] MEDS: inSUlin ASPART (NovoLOG) 1 UNIT/0.01 ML (CHARGE PER UNIT) SC SCH (20:58)
[2017-09-20 23:58] VITALS: BP 150/65
[2017-09-21] MEDS: morphine PCA 30 MG/30 ML VIAL IV PRN ×2 (00:33→15:35)
[2017-09-21] MEDS: oxyCODONE/APAP 5/325MG (PERCOCET 5) TABLET PO PRN ×6 (03:49→20:28)
[2017-09-21 04:12] VITALS: BP 144/64
[2017-09-21] MEDS: MULTIVIT W/MINERALS TAB (THERAGRAN M) PO SCH (06:17)
[2017-09-21] MEDS: inSUlin ASPART (NovoLOG) 1 UNIT/0.01 ML (CHARGE PER UNIT) SC SCH ×4 (06:17→21:25)
[2017-09-21 06:28] LABS: HEMOGLOBIN 9.8 G/DL (13.3-17.7)
[2017-09-21 06:45] LABS: ALANINE AMINOTRANSFERASE 17 U/L (0-55); ALBUMIN 3.6 GM/DL (3.2-4.5); ALKALINE PHOSPHATASE 94 U/L (40-136); BILIRUBIN,TOTAL 0.7 MG/DL (0.1-1.0); BUN/CREATININE RATIO 17; CALCIUM 8.6 MG/DL (8.5-10.1); CARBON DIOXIDE 23 MMOL/L (21-32); CHLORIDE 103 MMOL/L (98-107); CREATININE SERUM 0.77 MG/DL (0.60-1.30); GFR ESTIMATED > 60; GLUCOSE 204 MG/DL (70-105); POTASSIUM 4.3 MMOL/L (3.6-5.0); SODIUM 134 MMOL/L (135-145); TOTAL PROTEIN 5.9 GM/DL (6.4-8.2)
--- NOTE | 2017-09-21 07:15 | Anesthesia-General Post-Op ---
General Patient Condition Mental Status/LOC: Same as Preop Cardiovascular: Satisfactory Nausea/Vomiting: Absent Respiratory: Satisfactory Pain: Controlled Complications: Absent Post Op Complications Complications None Follow Up Care/Instructions Patient Instructions None needed. Anesthesia/Patient Condition Patient Condition Patient is doing well, no complaints, stable vital signs, no apparent adverse anesthesia problems. No complications reported per nursing. [place] [facility] [place] ALEX WHITTAKER CRNA Sep 21, 2017 07:15
[2017-09-21 07:45] VITALS: BP 144/72
--- NOTE | 2017-09-21 07:58 | Progress Note-Standard ---
Standard Progress Note Progress Notes/Assess & Plan Date Seen by Provider: Sep 21, 2017 Time Seen by Provider: 07:57 Progress/Assessment & Plan post op check No complaints Radiographs--HW well positioned without fracture RLE--intact DP and PT pulses with brisk cap refill. Sensation intact throughout. Intact DF and PF of toes and ankle s/p RTKA mobilize as able Final Diagnosis No complaints Vital Signs Date Time Temp Pulse Resp B/P (MAP) Pulse Ox O2 Delivery O2 Flow Rate FiO2 09/21/17 07:45 98.2 104 20 144/72 (96) 96 Room Air 09/21/17 04:12 98.4 108 18 144/64 (90) 94 Room Air 09/21/17 00:33 18 09/20/17 23:58 97.7 110 19 150/65 (93) 96 Room Air 09/20/17 20:30 Room Air 09/20/17 20:30 18 09/20/17 19:36 99.6 104 20 150/69 (96) 96 Room Air 09/20/17 17:19 20 09/20/17 16:00 98.9 92 20 142/65 (90) 97 Room Air 09/20/17 13:59 94 Room Air 09/20/17 12:44 97.7 82 20 141/65 (90) 94 Room Air 09/20/17 10:20 97.4 71 18 136/65 (88) 94 Room Air I & O 09/21/17 07:00 Intake Total 2820 ml Output Total 1415 ml Balance 1405 ml Laboratory Tests Test 09/20/17 15:56 09/20/17 19:30 09/20/17 20:49 09/21/17 05:16 Range/Units Glucometer 199 H 194 H 233 H 70-110 MG/DL Test 09/21/17 05:58 Range/Units Hemoglobin 9.8 L 13.3-17.7 G/DL Hematocrit 29 L 40-54 % Sodium Level 134 L 135-145 MMOL/L Potassium Level 4.3 3.6-5.0 MMOL/L Chloride Level 103 98-107 MMOL/L Carbon Dioxide Level 23 21-32 MMOL/L Anion Gap 8 5-14 MMOL/L Blood Urea Nitrogen 13 7-18 MG/DL Creatinine 0.77 0.60-1.30 MG/DL Estimat Glomerular Filtration Rate > 60 BUN/Creatinine Ratio 17 Glucose Level 204 H 70-105 MG/DL Calcium Level 8.6 8.5-10.1 MG/DL Total Bilirubin 0.7 0.1-1.0 MG/DL Aspartate Amino Transf (AST/SGOT) 14 5-34 U/L Alanine Aminotransferase (ALT/SGPT) 17 0-55 U/L Alkaline Phosphatase 94 40-136 U/L Total Protein 5.9 L 6.4-8.2 GM/DL Albumin 3.6 3.2-4.5 GM/DL RLE--dressing intact. NVI no calf tenderness. s/p RTKA PT/OT JARRETT CALLE MD Sep 21, 2017 07:58
[2017-09-21] MEDS: SENNA W/DOCUSATE (SENOKOT S) TABLET PO SCH ×2 (08:53→20:28)
[2017-09-21] MEDS: ENOXAPARIN 30 MG/0.3 ML (LOVENOX) SYR SC SCH ×2 (08:53→20:27)
[2017-09-21] MEDS: ASPIRIN E.C. 81 MG (ECOTRIN) TAB PO SCH ×2 (08:54→19:43)
[2017-09-21] MEDS: NS IV 1000 ML 1,000 ML IV SCH ×2 (09:04→12:57)
--- NOTE | 2017-09-21 09:26 | Physical Therapy Daily Note ---
PT Daily Note-Current Subjective Patient is in bed and agrees to PT. 8/10 right knee pain Pain Numeric Pain Scale: 8 Location: Right Location Body Site: Knee Pain Description: Acute Comment: with meds issued Mental Status Patient Orientation: Normal For Age Attachments: IV Transfers Functional [place] Measure 0=Not Assessed/NA 4=Minimal Assistance 1=Total Assistance 5=Supervision or Setup 2=Maximal Assistance 6=Modified [place] 3=Moderate Assistance 7=Complete IndependenceIRFPAI Quality Coding Scale 6 Independent with activity with or without an assistive device 5 Patient requires set up or clean up by helper. Patient completes activity by themselves 4 Supervision or touching assist (CGA). [place] provide cues , steadying assist 3 The helper provides less than half the effort to complete the activity 2 The helper provides more than half the effort to complete the activity 1 Dependent. The helper does all the effort to complete an activity 7 Patient refused to complete or attempt activity 9 The patient did not perform the activity before the current illness or injury 88 Not attempted due to Medical conditions or safety concerns Transfers (B, C, W/C) (FIM): 6 Scootin Rollin Supine to/from Sit: 6 Sit to/from Stand: 6 Bed to/from Chair: 6 Weight Bearing Right Lower Extremity: Right Weight Bearing/Tolerated Left Lower Extremity: Left Full Weight Bearing Gait Training Gait (FIM): 6 Distance (FIM): 3=150 ft Distance: 275' Gait Level of Assist: 6 Gait Assistive Device: FWW reciprocal pattern, slightly antalgic Exercises Supine Ex: Ankle pumps, Quad Set, Heel Slides, Straight leg raise Supine Reps: 15 Seated Therapy Exercises: Ankle pumps, Long arc quads Seated Reps: 15 Assessment Patient tolerated treatment well and is progressing with treatment plan. Plan on dismissal to home this Monday. PT Short Term Goals Short Term Goals Time Frame: Sep 27, 2017 Transfers (B,C,W/C) (FIM): 6 Gait (FIM): 6 Gait Distance Comment: 300' Gait Assistive Device: FWW Stairs (FIM): 2 # of Steps: 4 Stairs Level of Assist: 5 PT Plan Treatment/Plan Treatment Plan: Continue Plan of Care Treatment Plan: Bed Mobility, Education, Functional Activity Pilar, Functional Strength, Gait, Safety, Therapeutic Exercise, Transfers Treatment Duration: Sep 27, 2017 Frequency: 11 times per week Estimated Hrs Per Day: .25 hour per day (15-30') Patient and/or Family Agrees t: Yes Time/GCodes Time In: 805 Time Out: 830 Total Billed Treatment Time: 25 Total Billed Treatment 1 visit EX 15 min GT 10 min TR BARNES PT Sep 21, 2017 09:26
--- NOTE | 2017-09-21 09:40 | Occ Therapy Progress Note ---
Therapy Progress Note OT order received, chart reviewed. Pt. is up in chair. States that he had a "rough" night last night, but is feeling better today. OT explains who she is. Pt. states that he had occupational therapy before. OT offered to assist him with showering, dressing. Pt. states that he wont have any trouble with that. Declines this at this time. States that he had his other knee two months ago, and has been living with knee pain for a long time. Does not feel that he needs or requires any skilled assistance at this time with ADL tasks. OT lets him know that she will be happy to come back, if pt. should have questions. Thank you for this referral. 1, visit 0910 ESTEBAN PAYAN OT Sep 21, 2017 09:40
[2017-09-21 12:33] VITALS: BP 150/69
--- NOTE | 2017-09-21 14:28 | Physical Therapy Daily Note ---
PT Daily Note-Current Subjective Patient agrees to PT. Pain Numeric Pain Scale: 8 Location: Right Location Body Site: Knee Pain Description: Acute Mental Status Patient Orientation: Normal For Age Attachments: IV Transfers Functional [place] Measure 0=Not Assessed/NA 4=Minimal Assistance 1=Total Assistance 5=Supervision or Setup 2=Maximal Assistance 6=Modified [place] 3=Moderate Assistance 7=Complete IndependenceIRFPAI Quality Coding Scale 6 Independent with activity with or without an assistive device 5 Patient requires set up or clean up by helper. Patient completes activity by themselves 4 Supervision or touching assist (CGA). [place] provide cues , steadying assist 3 The helper provides less than half the effort to complete the activity 2 The helper provides more than half the effort to complete the activity 1 Dependent. The helper does all the effort to complete an activity 7 Patient refused to complete or attempt activity 9 The patient did not perform the activity before the current illness or injury 88 Not attempted due to Medical conditions or safety concerns Transfers (B, C, W/C) (FIM): 6 Scootin Rollin Supine to/from Sit: 6 Sit to/from Stand: 6 Weight Bearing Right Lower Extremity: Right Weight Bearing/Tolerated Left Lower Extremity: Left Full Weight Bearing Gait Training Gait (FIM): 6 Distance (FIM): 3=150 ft Distance: 375' Gait Level of Assist: 6 Gait Assistive Device: FWW reciprocal pattern Exercises Supine Ex: Ankle pumps, Quad Set, Heel Slides, Straight leg raise Supine Reps: 15 Seated Therapy Exercises: Long arc quads Seated Reps: 15 Assessment Patient progressing with treatment plan and is on CPM 0-80 degrees with polar pack in place PT Short Term Goals Short Term Goals Time Frame: Sep 27, 2017 Transfers (B,C,W/C) (FIM): 6 Gait (FIM): 6 Gait Distance Comment: 300' Gait Assistive Device: FWW Stairs (FIM): 2 # of Steps: 4 Stairs Level of Assist: 5 PT Plan Treatment/Plan Treatment Plan: Continue Plan of Care Treatment Plan: Bed Mobility, Education, Functional Activity Pilar, Functional Strength, Gait, Safety, Therapeutic Exercise, Transfers Treatment Duration: Sep 27, 2017 Frequency: 11 times per week Estimated Hrs Per Day: .25 hour per day (15-30') Patient and/or Family Agrees t: Yes Time/GCodes Time In: 1320 Time Out: 1345 Total Billed Treatment Time: 25 Total Billed Treatment 1 visit EX 12 min GT 13 min TR BARNES PT Sep 21, 2017 14:28
[2017-09-21 16:25] VITALS: BP 134/60
--- NOTE | 2017-09-21 17:50 | Progress Note (SOAP) ---
Subjective Subjective/Events-last exam Doing well today. States that pain is well controlled with [employer]. Decrease appetite but it is coming back. Small BM this AM. Review of Systems Date Seen by Provider: Sep 21, 2017 Time Seen by Provider: 11:05 Pulmonary: No Dyspnea, No Cough Cardiovascular: No: Chest Pain, Palpitations Gastrointestinal: No: Nausea, Vomiting, Abdominal Pain, Diarrhea, Constipation Objective Exam Last Set of Vital Signs Vital Signs Date Time Temp Pulse Resp B/P (MAP) Pulse Ox O2 Delivery O2 Flow Rate FiO2 09/21/17 16:25 100.6 106 20 134/60 (84) 95 Room Air Capillary Refill : I&O Intake and Output 09/21/17 00:00 Intake Total 2320 ml Output Total 815 ml Balance 1505 ml Intake Oral 820 ml IV Total 1500 ml Output Urine Total 815 ml # Voids 1 Daily Weight Change No General: Alert, Oriented X3, Cooperative, No Acute Distress Lungs: Clear to Auscultation, Normal Air Movement Heart: Regular Rate, No Murmurs Extremities: Other (Compression stocking in place) Skin: No Rashes, No Breakdown Results/Procedures Lab Laboratory Tests 09/20/17 19:30: 09/20/17 20:49: Glucometer 194H 09/21/17 05:16: Glucometer 233H 09/21/17 05:58: Hemoglobin 9.8L, Hematocrit 29L, Sodium Level 134L, Potassium Level 4.3, Chloride Level 103, Carbon Dioxide Level 23, Anion Gap 8, Blood Urea Nitrogen 13 , Creatinine 0.77, Estimat Glomerular Filtration Rate > 60, BUN/Creatinine Ratio 17, Glucose Level 204H, Calcium Level 8.6, Total Bilirubin 0.7, Aspartate Amino Transf (AST/SGOT) 14, Alanine Aminotransferase (ALT/SGPT) 17, Alkaline Phosphatase 94, Total Protein 5.9L, Albumin 3.6 09/21/17 10:53: Glucometer 257H 09/21/17 16:28: Glucometer 198H Assessment/Plan Assessment/Plan Assessment & Plan Hypertension - Continue home medications Diabetes Type 2 - Sliding scale insulin Hyperlipidemia - Continue lovastatin Right total knee arthroplasty - Followed by PT and Ortho - Pain management DVT PPx - Enoxaparin Patient seen and evaluated with student, agree with documentation unless otherwise noted (1) Osteoarthritis of right knee Status: Chronic Assessment & Plan: s/p R total Knee POD #1 09/21: Plan to go home with HH on Monday (2) Insulin dependent diabetes mellitus Status: Chronic Assessment & Plan: - restarted insulin and SSI A, A1c pending 09/21: Sugars are starting to come up, will start 60% of insulin, A1c pending (3) Hypertension Status: Chronic Assessment & Plan: - Restarted home meds Qualifiers: Qualified Codes: I10 - Essential (primary) hypertension (4) Hyperlipidemia Status: Chronic Assessment & Plan: - Restarted home meds Qualifiers: Qualified Codes: E78.2 - Mixed hyperlipidemia Clinical Quality Measures DVT/VTE Risk/Contraindication: Risk Factor Score Per Nursin RFS Level Per Nursing on Admit: 4+=Very High NAIF TRAYLOR MD Sep 21, 2017 17:50
[2017-09-21 19:45] VITALS: BP 146/65
[2017-09-21] MEDS: SIMvastatin 10 MG (ZOCOR) TAB PO SCH (20:27)
[2017-09-21] MEDS: meTOprolol TARTRATE 50 MG (LOPRESSOR) TAB PO SCH (20:28)
[2017-09-21] MEDS: HYDROCHLOROTHIAZIDE 12.5 MG (HCTZ) CAP PO SCH (20:28)
[2017-09-21] MEDS: lisINopril 20 MG (PRINIVIL) TABLET PO SCH (20:28)
[2017-09-21] MEDS ORDERED: inSUlin DETERMIR 1 UNIT/0.01 ML (LEVEMIR) CHARGE PER UNIT SQ SCH (21:00)
[2017-09-22] MEDS: NS IV 1000 ML 1,000 ML IV SCH (00:44)
[2017-09-22 00:55] VITALS: BP 134/74
[2017-09-22 04:12] VITALS: BP 147/63
[2017-09-22] MEDS: inSUlin ASPART (NovoLOG) 1 UNIT/0.01 ML (CHARGE PER UNIT) SC SCH ×4 (05:37→21:05)
[2017-09-22 06:02] LABS: HEMOGLOBIN 8.9 G/DL (13.3-17.7)
[2017-09-22] MEDS: MULTIVIT W/MINERALS TAB (THERAGRAN M) PO SCH (06:29)
[2017-09-22] MEDS: oxyCODONE/APAP 5/325MG (PERCOCET 5) TABLET PO PRN ×6 (06:29→20:59)
--- NOTE | 2017-09-22 07:04 | Progress Note-Standard ---
Standard Progress Note Progress Notes/Assess & Plan Date Seen by Provider: Sep 22, 2017 Time Seen by Provider: 07:03 Progress/Assessment & Plan post op check No complaints Radiographs--HW well positioned without fracture RLE--intact DP and PT pulses with brisk cap refill. Sensation intact throughout. Intact DF and PF of toes and ankle s/p RTKA mobilize as able Final Diagnosis NO complaints Vital Signs Date Time Temp Pulse Resp B/P (MAP) Pulse Ox O2 Delivery O2 Flow Rate FiO2 09/22/17 04:12 98.7 95 18 147/63 (91) 95 Room Air 09/22/17 00:55 97.9 84 18 134/74 (94) 96 Room Air 09/21/17 21:49 100.9 09/21/17 21:30 100.9 09/21/17 20:05 95 Room Air 09/21/17 19:45 101.1 109 20 146/65 (92) 95 Room Air 09/21/17 17:25 100.6 09/21/17 16:25 100.6 106 20 134/60 (84) 95 Room Air 09/21/17 16:10 100.6 09/21/17 15:35 20 09/21/17 13:43 100.0 09/21/17 12:33 100.0 103 20 150/69 (96) 96 Room Air 09/21/17 11:10 98.2 09/21/17 08:00 Room Air 09/21/17 07:45 98.2 104 20 144/72 (96) 96 Room Air I & O 09/22/17 07:00 Intake Total 5470 ml Output Total 1875 ml Balance 3595 ml Laboratory Tests Test 09/21/17 10:53 09/21/17 16:28 09/21/17 20:56 09/22/17 05:25 Range/Units Glucometer 257 H 198 H 234 H 175 H 70-110 MG/DL Test 09/22/17 05:53 Range/Units Hemoglobin 8.9 L 13.3-17.7 G/DL Hematocrit 26 L 40-54 % RLE--incision clean and dry. No calf tenderness. Neg Ashu's s/p RTKA progressing well PT/OT likely DC tomorrow JARRETT CALLE MD Sep 22, 2017 07:04
[2017-09-22] MEDS ORDERED: morphine INJ 4 MG/ML 1 ML (VIAL/SYRINGE) IVP PRN (07:15)
[2017-09-22 08:00] VITALS: BP 141/63
--- NOTE | 2017-09-22 09:29 | Physical Therapy Daily Note ---
PT Daily Note-Current Subjective Patient agrees to PT. Pain Numeric Pain Scale: 6 Location: Right Location Body Site: Knee Pain Description: Acute Mental Status Patient Orientation: Normal For Age Transfers Functional [place] Measure 0=Not Assessed/NA 4=Minimal Assistance 1=Total Assistance 5=Supervision or Setup 2=Maximal Assistance 6=Modified [place] 3=Moderate Assistance 7=Complete IndependenceIRFPAI Quality Coding Scale 6 Independent with activity with or without an assistive device 5 Patient requires set up or clean up by helper. Patient completes activity by themselves 4 Supervision or touching assist (CGA). [place] provide cues , steadying assist 3 The helper provides less than half the effort to complete the activity 2 The helper provides more than half the effort to complete the activity 1 Dependent. The helper does all the effort to complete an activity 7 Patient refused to complete or attempt activity 9 The patient did not perform the activity before the current illness or injury 88 Not attempted due to Medical conditions or safety concerns Transfers (B, C, W/C) (FIM): 6 Scootin Rollin Supine to/from Sit: 6 Sit to/from Stand: 6 Weight Bearing Right Lower Extremity: Right Weight Bearing/Tolerated Left Lower Extremity: Left Full Weight Bearing Gait Training Gait (FIM): 6 Distance (FIM): 3=150 ft Distance: 300' Gait Level of Assist: 6 Gait Assistive Device: FWW slow, reciprocal pattern Exercises Supine Ex: Ankle pumps, Quad Set, Heel Slides, Straight leg raise Supine Reps: 25 Seated Therapy Exercises: Ankle pumps, Long arc quads Seated Reps: 25 Treatments CPM 0-90 degrees with polar pack in place Assessment Patient tolerated treatment well and will dismiss tomorrow. PT Short Term Goals Short Term Goals Time Frame: Sep 27, 2017 Transfers (B,C,W/C) (FIM): 6 Gait (FIM): 6 Gait Distance Comment: 300' Gait Assistive Device: FWW Stairs (FIM): 2 # of Steps: 4 Stairs Level of Assist: 5 PT Plan Treatment/Plan Treatment Plan: Continue Plan of Care Treatment Plan: Bed Mobility, Education, Functional Activity Pilar, Functional Strength, Gait, Safety, Therapeutic Exercise, Transfers Treatment Duration: Sep 27, 2017 Frequency: 11 times per week Estimated Hrs Per Day: .25 hour per day (15-30') Patient and/or Family Agrees t: Yes Time/GCodes Time In: 805 Time Out: 829 Total Billed Treatment Time: 24 Total Billed Treatment 1 visit EX 16 min FA 8 min TR BARNES PT Sep 22, 2017 09:29
[2017-09-22] MEDS: ASPIRIN E.C. 81 MG (ECOTRIN) TAB PO SCH (09:32)
[2017-09-22] MEDS: meTOprolol TARTRATE 50 MG (LOPRESSOR) TAB PO SCH ×2 (09:32→20:54)
[2017-09-22] MEDS: SENNA W/DOCUSATE (SENOKOT S) TABLET PO SCH ×2 (09:32→20:55)
[2017-09-22] MEDS: amLODIPine 5 MG (NORVASC) TAB PO SCH (09:32)
[2017-09-22] MEDS: lisINopril 20 MG (PRINIVIL) TABLET PO SCH ×2 (09:32→20:54)
[2017-09-22] MEDS: ENOXAPARIN 30 MG/0.3 ML (LOVENOX) SYR SC SCH ×2 (09:32→20:54)
[2017-09-22] MEDS: HYDROCHLOROTHIAZIDE 12.5 MG (HCTZ) CAP PO SCH ×2 (09:36→20:54)
--- NOTE | 2017-09-22 13:39 | Physical Therapy Daily Note ---
PT Daily Note-Current Subjective Patient agrees to PT. Pain Numeric Pain Scale: 7 Location: Right Location Body Site: Knee Pain Description: Acute Mental Status Patient Orientation: Normal For Age Transfers Functional [place] Measure 0=Not Assessed/NA 4=Minimal Assistance 1=Total Assistance 5=Supervision or Setup 2=Maximal Assistance 6=Modified [place] 3=Moderate Assistance 7=Complete IndependenceIRFPAI Quality Coding Scale 6 Independent with activity with or without an assistive device 5 Patient requires set up or clean up by helper. Patient completes activity by themselves 4 Supervision or touching assist (CGA). [place] provide cues , steadying assist 3 The helper provides less than half the effort to complete the activity 2 The helper provides more than half the effort to complete the activity 1 Dependent. The helper does all the effort to complete an activity 7 Patient refused to complete or attempt activity 9 The patient did not perform the activity before the current illness or injury 88 Not attempted due to Medical conditions or safety concerns Transfers (B, C, W/C) (FIM): 6 Scootin Rollin Supine to/from Sit: 6 Sit to/from Stand: 6 Weight Bearing Right Lower Extremity: Right Weight Bearing/Tolerated Left Lower Extremity: Left Full Weight Bearing Gait Training Gait (FIM): 6 Distance (FIM): 3=150 ft Distance: 250' x 2 Gait Level of Assist: 6 Gait Assistive Device: FWW steady, reciprocal Stair Training Stair Training: Handrails/: 2 handrails Stairs (FIM): 6 #of Steps: 12 Stairs: Pattern: Step to Level of Assist: 6 Exercises Supine Ex: Ankle pumps, Quad Set, Heel Slides, Straight leg raise Supine Reps: 20 Seated Therapy Exercises: Long arc quads Seated Reps: 20 Assessment Patient improving and will continue upon dismissal. He is compliant with HEP. Per patient report, he will receive a CPM for home use. PT Short Term Goals Short Term Goals Time Frame: Sep 27, 2017 Transfers (B,C,W/C) (FIM): 6 Gait (FIM): 6 Gait Distance Comment: 300' Gait Assistive Device: FWW Stairs (FIM): 2 # of Steps: 4 Stairs Level of Assist: 5 PT Plan Treatment/Plan Treatment Plan: Continue Plan of Care Treatment Plan: Bed Mobility, Education, Functional Activity Pilar, Functional Strength, Gait, Safety, Therapeutic Exercise, Transfers Treatment Duration: Sep 27, 2017 Frequency: 11 times per week Estimated Hrs Per Day: .25 hour per day (15-30') Patient and/or Family Agrees t: Yes Time/GCodes Time In: 1250 Time Out: 1313 Total Billed Treatment Time: 23 Total Billed Treatment 1 visit EX 8 min FA 15 min TR BARNES PT Sep 22, 2017 13:39
[2017-09-22 16:02] VITALS: BP 144/63
--- NOTE | 2017-09-22 16:56 | Progress Note (SOAP) ---
Subjective Subjective/Events-last exam Patient doing well this AM. Tolerating PO diet states that his blood sugars are higher then normal. Discussed with patient that insulin doses were decreased because he was post op. Will adjust insulin. Pain well controlled. No BM since surgery. Review of Systems Date Seen by Provider: Sep 22, 2017 Time Seen by Provider: 07:25 Pulmonary: No Dyspnea, No Cough Cardiovascular: No: Chest Pain, Palpitations Gastrointestinal: Constipation; No: Nausea, Vomiting, Abdominal Pain Musculoskeletal: leg pain Objective Exam Last Set of Vital Signs Vital Signs Date Time Temp Pulse Resp B/P (MAP) Pulse Ox O2 Delivery O2 Flow Rate FiO2 09/22/17 16:02 100.4 93 20 144/63 (90) 97 Room Air Capillary Refill : I&O Intake and Output 09/22/17 00:00 Intake Total 4120 ml Output Total 2050 ml Balance 2070 ml Intake Oral 2120 ml IV Total 2000 ml Output Urine Total 2050 ml General: Alert, Oriented X3, Cooperative, No Acute Distress Lungs: Clear to Auscultation, Normal Air Movement Heart: Regular Rate, No Murmurs Abdomen: Normal Bowel Sounds, Soft, No Tenderness, No Hepatosplenomegaly, No Masses Extremities: Other (compression stockings in place) Psych/Mental Status: Mental Status NL, Mood NL Results/Procedures Lab Laboratory Tests 09/21/17 20:56: Glucometer 234H 09/22/17 05:25: Glucometer 175H 09/22/17 05:53: Hemoglobin 8.9L, Hematocrit 26L 09/22/17 11:03: Glucometer 217H 09/22/17 16:04: Glucometer 168H Assessment/Plan Assessment/Plan Assessment & Plan Hypertension - Continue home medications Diabetes Type 2 - Sliding scale insulin Hyperlipidemia - Continue lovastatin Right total knee arthroplasty - Followed by PT and Ortho - Pain management DVT PPx - Enoxaparin Patient seen and evaluated with student, agree with documentation unless otherwise noted (1) Osteoarthritis of right knee Status: Chronic Assessment & Plan: s/p R total Knee POD #2 09/21: Plan to go home with HH on Monday (2) Insulin dependent diabetes mellitus Status: Chronic Assessment & Plan: - restarted insulin and SSI A, A1c pending 09/21: Sugars are starting to come up, will start 60% of insulin, A1c pending 09/22: A1c 6.1, increase levemir to 30 units BID, will continue to monitor blood sugars closely (3) Hypertension Status: Chronic Assessment & Plan: - Restarted home meds Qualifiers: Qualified Codes: I10 - Essential (primary) hypertension (4) Hyperlipidemia Status: Chronic Assessment & Plan: - Restarted home meds Qualifiers: Qualified Codes: E78.2 - Mixed hyperlipidemia Clinical Quality Measures DVT/VTE Risk/Contraindication: Risk Factor Score Per Nursin RFS Level Per Nursing on Admit: 4+=Very High NAIF TRAYLOR MD Sep 22, 2017 16:56
[2017-09-22] MEDS: SIMvastatin 10 MG (ZOCOR) TAB PO SCH (20:55)
[2017-09-22] MEDS: inSUlin DETERMIR 1 UNIT/0.01 ML (LEVEMIR) CHARGE PER UNIT SQ SCH (20:55)
[2017-09-23 00:18] VITALS: BP 131/61
[2017-09-23] MEDS: oxyCODONE/APAP 5/325MG (PERCOCET 5) TABLET PO PRN ×3 (01:07→09:12)
[2017-09-23 05:58] LABS: BASOPHILS % (AUTO) 0 % (0-10); EOSINOPHILS # (AUTO) 0.1 10^3/uL (0.0-0.3); EOSINOPHILS % (AUTO) 1 % (0-10); HEMATOCRIT 25 % (40-54); HEMOGLOBIN 8.5 G/DL (13.3-17.7); LYMPHOCYTES # (AUTO) 4.6 X 10^3 (1.0-4.0); LYMPHOCYTES % (AUTO) 48 % (12-44); MEAN CORPUSCULAR HEMOGLOBIN 31 PG (25-34); MEAN CORPUSCULAR HGB CONC 34 G/DL (32-36); MEAN CORPUSCULAR VOLUME 90 FL (80-99); MONOCYTES # (AUTO) 0.6 X 10^3 (0.0-1.0); MONOCYTES % (AUTO) 6 % (0-12); NEUTROPHILS # (AUTO) 4.4 X 10^3 (1.8-7.8); NEUTROPHILS % (AUTO) 45 % (42-75); PLATELET COUNT 221 10^3/uL (130-400); RED BLOOD COUNT 2.77 10^6/uL (4.35-5.85); RED CELL DISTRIBUTION WIDTH 14.2 % (10.0-14.5); WHITE BLOOD COUNT 9.7 10^3/uL (4.3-11.0)
[2017-09-23 06:21] LABS: BUN/CREATININE RATIO 24; CALCIUM 8.7 MG/DL (8.5-10.1); CARBON DIOXIDE 23 MMOL/L (21-32); CHLORIDE 100 MMOL/L (98-107); CREATININE SERUM 0.72 MG/DL (0.60-1.30); GFR ESTIMATED > 60; GLUCOSE 154 MG/DL (70-105); POTASSIUM 3.5 MMOL/L (3.6-5.0); SODIUM 132 MMOL/L (135-145)
[2017-09-23] MEDS: MULTIVIT W/MINERALS TAB (THERAGRAN M) PO SCH ×2 (06:26→06:41)
[2017-09-23] MEDS: inSUlin ASPART (NovoLOG) 1 UNIT/0.01 ML (CHARGE PER UNIT) SC SCH (06:26)
[2017-09-23] MEDS: ENOXAPARIN 30 MG/0.3 ML (LOVENOX) SYR SC SCH (09:07)
[2017-09-23] MEDS: inSUlin DETERMIR 1 UNIT/0.01 ML (LEVEMIR) CHARGE PER UNIT SQ SCH (09:07)
[2017-09-23] MEDS: HYDROCHLOROTHIAZIDE 12.5 MG (HCTZ) CAP PO SCH (09:07)
[2017-09-23] MEDS: amLODIPine 5 MG (NORVASC) TAB PO SCH (09:07)
[2017-09-23] MEDS: lisINopril 20 MG (PRINIVIL) TABLET PO SCH (09:07)
[2017-09-23] MEDS: meTOprolol TARTRATE 50 MG (LOPRESSOR) TAB PO SCH (09:08)
[2017-09-23] MEDS: SENNA W/DOCUSATE (SENOKOT S) TABLET PO SCH (09:08)
[2017-09-23] MEDS: ASPIRIN E.C. 81 MG (ECOTRIN) TAB PO SCH (09:08)
--- NOTE | 2017-09-23 09:31 | Physical Therapy Progress Note ---
Therapy Progress Note Patient refused treatment this morning. He states he just got through walking several hundred feet by himself using a rolling walker and doesn't want to get back up at this time. He states he will be discharging this morning and doesn' t want therapist to check back. TOMÁS RUBIN PT Sep 23, 2017 09:31
--- NOTE | 2017-09-23 09:31 | Progress Note-Standard ---
Standard Progress Note Progress Notes/Assess & Plan Date Seen by Provider: Sep 23, 2017 Time Seen by Provider: 09:30 Progress/Assessment & Plan post op check No complaints Radiographs--HW well positioned without fracture RLE--intact DP and PT pulses with brisk cap refill. Sensation intact throughout. Intact DF and PF of toes and ankle s/p RTKA mobilize as able Final Diagnosis NO complaints Vital Signs Date Time Temp Pulse Resp B/P (MAP) Pulse Ox O2 Delivery O2 Flow Rate FiO2 09/23/17 00:18 98.8 93 20 131/61 (84) 98 Room Air 09/22/17 16:02 100.4 93 20 144/63 (90) 97 Room Air 09/22/17 12:00 97.4 09/22/17 10:00 20 I & O 09/23/17 07:00 Intake Total 2770 ml Output Total 900 ml Balance 1870 ml Laboratory Tests Test 09/22/17 11:03 09/22/17 16:04 09/22/17 20:58 09/23/17 05:08 Range/Units Glucometer 217 H 168 H 256 H 174 H 70-110 MG/DL Test 09/23/17 05:40 Range/Units White Blood Count 9.7 4.3-11.0 10^3/uL Red Blood Count 2.77 L 4.35-5.85 10^6/uL Hemoglobin 8.5 L 13.3-17.7 G/DL Hematocrit 25 L 40-54 % Mean Corpuscular Volume 90 80-99 FL Mean Corpuscular Hemoglobin 31 25-34 PG Mean Corpuscular Hemoglobin Concent 34 32-36 G/DL Red Cell Distribution Width 14.2 10.0-14.5 % Platelet Count 221 130-400 10^3/uL Mean Platelet Volume 10.0 7.4-10.4 FL Neutrophils (%) (Auto) 45 42-75 % Lymphocytes (%) (Auto) 48 H 12-44 % Monocytes (%) (Auto) 6 0-12 % Eosinophils (%) (Auto) 1 0-10 % Basophils (%) (Auto) 0 0-10 % Neutrophils # (Auto) 4.4 1.8-7.8 X 10^3 Lymphocytes # (Auto) 4.6 H 1.0-4.0 X 10^3 Monocytes # (Auto) 0.6 0.0-1.0 X 10^3 Eosinophils # (Auto) 0.1 0.0-0.3 10^3/uL Basophils # (Auto) 0.0 0.0-0.1 10^3/uL Sodium Level 132 L 135-145 MMOL/L Potassium Level 3.5 L 3.6-5.0 MMOL/L Chloride Level 100 98-107 MMOL/L Carbon Dioxide Level 23 21-32 MMOL/L Anion Gap 9 5-14 MMOL/L Blood Urea Nitrogen 17 7-18 MG/DL Creatinine 0.72 0.60-1.30 MG/DL Estimat Glomerular Filtration Rate > 60 BUN/Creatinine Ratio 24 Glucose Level 154 H 70-105 MG/DL Calcium Level 8.7 8.5-10.1 MG/DL RLE--dressing intact. No calf tenderness. Neg Ashu's. improved quad control s/p RTKA doing well [facility] JARRETT CALLE MD Sep 23, 2017 09:31
--- NOTE | 2017-09-23 10:07 | DISCHARGE SUMMARY ---
DATE OF SERVICE: DISCHARGE DIAGNOSES: 1. Right knee primary osteoarthritis. 2. Diabetes type 2. 3. Hyperlipidemia. 4. Hypertension. PROCEDURE: Right total knee arthroplasty. SUMMARY: The patient is a 67-year-old gentleman who underwent a right total knee arthroplasty on the day of admission. Postoperatively, he did well. At the time of discharge, he was tolerating his diet well, tolerating pain with oral pain medication. He had cleared physical therapy and had no calf tenderness. Negative Homans sign. His wound was clean and dry. CONDITION ON DISCHARGE: Good. DISCHARGE DIET: Diabetic. FOLLOWUP: Followup is in three weeks. Home physical therapy has been arranged. ACTIVITY: Weightbearing as tolerated with a walker. DISCHARGE MEDICATIONS: Home medications, Percocet as needed for pain and one aspirin every day. Job ID: [id number] DocumentID: [id number] Dictated Date: 09/23/2017 09:36:18 Quality Control Coordinator Date: 09/23/2017 10:06:10 Dictated By: JARRETT CALLE MD
== END 2017-09-23 11:10 | disposition home or self-care (01) | DRG 470 ==
LOC: 4TH 05:51 → SURG 05:52 → 4TH 10:20
PROVIDERS: ADMIT Orthopaedic Surgery; ATTEND Orthopaedic Surgery
PROC: 0SRC0J9 Replacement of Right Knee Joint with Synthetic Substitute, Cemented, Open Approach (ICD-10-PCS; principal; 2017-09-20 07:32)
DX: M17.11 Unilateral primary osteoarthritis, right knee (principal); E11.9 Type 2 diabetes mellitus without complications; E78.2 Mixed hyperlipidemia; I10 Essential (primary) hypertension; Z79.4 Long term (current) use of insulin; Z96.652 Presence of left artificial knee joint; Z13.0 Encounter for screening for diseases of the blood and blood-forming organs and certain disorders involving the immune mechanism
CPT/HCPCS: 36415; 73560; 80048; 80053; 82962; 83036; 85014; 85018; 85025; 86850; 86900; 86901; 88184; 88185; 94664

== ENCOUNTER → 2017-11-07 | Outpatient (CLI) | payer MEDICARE, OTHER ==
[~2017-11-07] MED LIST changes: -AMLO5TAB2 PO; +AMLO5TAB7 PO; +METF-399 PO; -METF10002 PO; -OXYC-197 PO; +OXYC1TAB87 PO
--- NOTE | 2017-11-07 16:47 | Diagnostic Imaging Report ---
INDICATION: Leukocytosis and lymphadenopathy. TECHNIQUE: Multiple contiguous axial CT images were obtained through the neck, chest, abdomen, and pelvis after intravenous administration of iodinated contrast. COMPARISON: No previous studies available at this time for comparison. CT NECK: There are numerous prominent deep cervical lymph nodes throughout the neck, bilaterally. These are generally symmetric and measure up to approximately 1.5 cm in size. Largest lymph nodes are in the submandibular and jugulodigastric chains. There is no evidence of focal fluid collection. Visualized paranasal sinuses are clear. No great vessel abnormality is seen in the neck. CT CHEST: There is no evidence of thyroid gland abnormality. There are numerous prominent mediastinal lymph nodes. Non-calcified lymph nodes in the paratracheal region reach 1.8 cm in size. Aorticopulmonary window lymph nodes are slightly smaller. There are prominent bilateral axillary lymph nodes reaching 2 cm in size. Densely calcified nodules are also seen within the pulmonary hilar regions and the subcarina. There is no significant pleural or pericardial fluid. Coronary artery calcification is noted. CT ABDOMEN AND PELVIS: No focal hepatic or splenic lesion is identified. Calcification is seen within the lumen of the gallbladder compatible with cholelithiasis. There is no evidence of pancreatic or adrenal gland abnormality. There is excretion of contrast from both kidneys without evidence of renal mass. There are numerous central retroperitoneal and mesenteric lymph nodes measuring up to 1.5 cm in size. Bilateral iliac adenopathy is present with long axis reaching 4.5 cm. There are also enlarged bilateral inguinal lymph nodes with the largest on the left reaching 5.1 cm long axis. There is diffuse lumbar spondylosis with L5 spondylolysis and grade 1 spondylolisthesis. IMPRESSION: There is mild diffuse lymphadenopathy as described. There is symmetric deep cervical adenopathy with both calcified and noncalcified adenopathy in the mediastinum. Bilateral axillary, mesenteric, retroperitoneal, iliac, and inguinal adenopathy is also present. Findings are suggestive of possible lymphoma, and clinical correlation is recommended. Consideration could be given to axillary or inguinal lymph node biopsy for assessment. Dictated by: Dictated on workstation # [id number]
== END ==
LOC: RAD 14:25
PROVIDERS: ATTEND Internal Medicine Hematology & Oncology
DX: R59.1 Generalized enlarged lymph nodes (principal); D72.820 Lymphocytosis (symptomatic)
CPT/HCPCS: 70491; 71260; 74176

== ENCOUNTER 2017-11-10 11:23 | Outpatient (RCR) | payer MEDICARE, OTHER | END 2017-11-10 12:49 | disposition home or self-care (01) | PROVIDERS: ATTEND Orthopaedic Surgery | DX: Z47.1 Aftercare following joint replacement surgery (principal); Z96.651 Presence of right artificial knee joint ==

== ENCOUNTER → 2018-01-02 | Outpatient (CLI) | payer MEDICARE, OTHER ==
--- NOTE | 2018-01-02 16:02 | Diagnostic Imaging Report ---
INDICATION: Left knee replacement. TIME OF EXAMINATION: 1:26 PM. FINDINGS: Three views of the left knee demonstrate postop changes of total knee arthroplasty. The prosthetic elements appear to be in good position. No fracture or loosening is seen. There is some mild prepatellar soft tissue swelling. IMPRESSION: Prepatellar soft tissue swelling. No acute bony abnormality is detected. Dictated by: Dictated on workstation # [id number]
== END ==
LOC: RAD 12:42
PROVIDERS: ATTEND Orthopaedic Surgery
DX: M17.0 Bilateral primary osteoarthritis of knee (principal); Z96.652 Presence of left artificial knee joint
CPT/HCPCS: 73562

== ENCOUNTER 2018-01-29 08:55 | Outpatient (RCR) | payer MEDICARE, OTHER ==
[2017-11-02 09:39] LABS: BASOPHILS % (AUTO) 0 % (0-10); EOSINOPHILS # (AUTO) 0.2 10^3/uL (0.0-0.3); EOSINOPHILS % (AUTO) 1 % (0-10); HEMATOCRIT 32 % (40-54); HEMOGLOBIN 10.6 G/DL (13.3-17.7); LYMPHOCYTES # (AUTO) 8.9 X 10^3 (1.0-4.0); LYMPHOCYTES % (AUTO) 60 % (12-44); MEAN CORPUSCULAR HEMOGLOBIN 30 PG (25-34); MEAN CORPUSCULAR HGB CONC 34 G/DL (32-36); MEAN CORPUSCULAR VOLUME 89 FL (80-99); MEAN PLATELET VOLUME 9.4 FL (7.4-10.4); MONOCYTES # (AUTO) 0.4 X 10^3 (0.0-1.0); MONOCYTES % (AUTO) 3 % (0-12); NEUTROPHILS # (AUTO) 5.2 X 10^3 (1.8-7.8); NEUTROPHILS % (AUTO) 35 % (42-75); PLATELET COUNT 312 10^3/uL (130-400); RED BLOOD COUNT 3.55 10^6/uL (4.35-5.85); RED CELL DISTRIBUTION WIDTH 14.4 % (10.0-14.5); WHITE BLOOD COUNT 14.7 10^3/uL (4.3-11.0)
[2017-11-02 09:59] LABS: ALANINE AMINOTRANSFERASE 13 U/L (0-55); ALBUMIN 4.2 GM/DL (3.2-4.5); ALKALINE PHOSPHATASE 102 U/L (40-136); BILIRUBIN,TOTAL 0.5 MG/DL (0.1-1.0); BUN/CREATININE RATIO 16; CALCIUM 9.5 MG/DL (8.5-10.1); CARBON DIOXIDE 23 MMOL/L (21-32); CHLORIDE 102 MMOL/L (98-107); CREATININE SERUM 0.79 MG/DL (0.60-1.30); GFR ESTIMATED > 60; GLUCOSE 144 MG/DL (70-105); POTASSIUM 4.3 MMOL/L (3.6-5.0); SODIUM 136 MMOL/L (135-145); TOTAL PROTEIN 6.7 GM/DL (6.4-8.2)
[2017-12-18 11:01] LABS: ABSOLUTE RETIC # 66 10e9/L (24-90); BASOPHILS % (AUTO) 0 % (0-10); EOSINOPHILS # (AUTO) 0.2 10^3/uL (0.0-0.3); EOSINOPHILS % (AUTO) 1 % (0-10); HEMATOCRIT 33 % (40-54); HEMOGLOBIN 11.3 G/DL (13.3-17.7); LYMPHOCYTES # (AUTO) 9.8 X 10^3 (1.0-4.0); LYMPHOCYTES % (AUTO) 63 % (12-44); MEAN CORPUSCULAR HEMOGLOBIN 29 PG (25-34); MEAN CORPUSCULAR HGB CONC 34 G/DL (32-36); MEAN CORPUSCULAR VOLUME 86 FL (80-99); MEAN PLATELET VOLUME 9.9 FL (7.4-10.4); MONOCYTES # (AUTO) 0.4 X 10^3 (0.0-1.0); MONOCYTES % (AUTO) 3 % (0-12); NEUTROPHILS # (AUTO) 5.1 X 10^3 (1.8-7.8); NEUTROPHILS % (AUTO) 33 % (42-75); PLATELET COUNT 272 10^3/uL (130-400); RED BLOOD COUNT 3.88 10^6/uL (4.35-5.85); RED CELL DISTRIBUTION WIDTH 14.1 % (10.0-14.5); RETICULOCYTE % 1.71 % (0.50-2.40); WHITE BLOOD COUNT 15.5 10^3/uL (4.3-11.0)
[2017-12-18 11:19] LABS: ALANINE AMINOTRANSFERASE 14 U/L (0-55); ALBUMIN 4.2 GM/DL (3.2-4.5); ALKALINE PHOSPHATASE 99 U/L (40-136); BILIRUBIN,TOTAL 0.4 MG/DL (0.1-1.0); BUN/CREATININE RATIO 22; CALCIUM 9.4 MG/DL (8.5-10.1); CARBON DIOXIDE 22 MMOL/L (21-32); CHLORIDE 102 MMOL/L (98-107); GFR ESTIMATED > 60; GLUCOSE 125 MG/DL (70-105); POTASSIUM 4.4 MMOL/L (3.6-5.0); SODIUM 136 MMOL/L (135-145); TOTAL PROTEIN 6.7 GM/DL (6.4-8.2)
[2017-12-18 11:29] LABS: BAND NEUTROPHILS 0 %; NEUTROPHILS % (MANUAL) 38 %
[2017-12-18 11:30] LABS: BASOPHILS % (MANUAL) 0 %; EOSINOPHILS % (MANUAL) 2 %; LYMPHOCYTES % (MANUAL) 59 %; MONOCYTES % (MANUAL) 1 %; RBC MORPH NORMAL
[2018-01-15 10:38] LABS: BASOPHILS % (AUTO) 0 % (0-10); EOSINOPHILS # (AUTO) 0.2 10^3/uL (0.0-0.3); EOSINOPHILS % (AUTO) 1 % (0-10); HEMATOCRIT 34 % (40-54); HEMOGLOBIN 11.4 G/DL (13.3-17.7); LYMPHOCYTES # (AUTO) 9.1 X 10^3 (1.0-4.0); LYMPHOCYTES % (AUTO) 60 % (12-44); MEAN CORPUSCULAR HEMOGLOBIN 29 PG (25-34); MEAN CORPUSCULAR HGB CONC 34 G/DL (32-36); MEAN CORPUSCULAR VOLUME 86 FL (80-99); MEAN PLATELET VOLUME 9.8 FL (7.4-10.4); MONOCYTES # (AUTO) 0.9 X 10^3 (0.0-1.0); MONOCYTES % (AUTO) 6 % (0-12); NEUTROPHILS % (AUTO) 33 % (42-75); PLATELET COUNT 263 10^3/uL (130-400); RED BLOOD COUNT 3.93 10^6/uL (4.35-5.85); RED CELL DISTRIBUTION WIDTH 14.5 % (10.0-14.5); WHITE BLOOD COUNT 15.2 10^3/uL (4.3-11.0)
[2018-01-15 11:01] LABS: ALANINE AMINOTRANSFERASE 13 U/L (0-55); ALBUMIN 4.3 GM/DL (3.2-4.5); ALKALINE PHOSPHATASE 91 U/L (40-136); BILIRUBIN,TOTAL 0.5 MG/DL (0.1-1.0); BUN/CREATININE RATIO 20; CALCIUM 9.5 MG/DL (8.5-10.1); CARBON DIOXIDE 25 MMOL/L (21-32); CHLORIDE 101 MMOL/L (98-107); CREATININE SERUM 0.84 MG/DL (0.60-1.30); GFR ESTIMATED > 60; GLUCOSE 90 MG/DL (70-105); SODIUM 135 MMOL/L (135-145); TOTAL PROTEIN 6.7 GM/DL (6.4-8.2)
[2018-01-16 07:29] LABS: HEPATITIS C ANTIBODY C Non-Reactive (Non-Reactive)
[2018-01-22 09:26] LABS: BASOPHILS % (AUTO) 0 % (0-10); EOSINOPHILS # (AUTO) 0.2 10^3/uL (0.0-0.3); EOSINOPHILS % (AUTO) 2 % (0-10); HEMATOCRIT 34 % (40-54); HEMOGLOBIN 11.4 G/DL (13.3-17.7); LYMPHOCYTES # (AUTO) 5.8 X 10^3 (1.0-4.0); LYMPHOCYTES % (AUTO) 50 % (12-44); MEAN CORPUSCULAR HEMOGLOBIN 29 PG (25-34); MEAN CORPUSCULAR HGB CONC 33 G/DL (32-36); MEAN CORPUSCULAR VOLUME 87 FL (80-99); MEAN PLATELET VOLUME 9.5 FL (7.4-10.4); MONOCYTES # (AUTO) 0.3 X 10^3 (0.0-1.0); MONOCYTES % (AUTO) 2 % (0-12); NEUTROPHILS # (AUTO) 5.2 X 10^3 (1.8-7.8); NEUTROPHILS % (AUTO) 45 % (42-75); PLATELET COUNT 228 10^3/uL (130-400); RED BLOOD COUNT 3.96 10^6/uL (4.35-5.85); RED CELL DISTRIBUTION WIDTH 14.3 % (10.0-14.5); WHITE BLOOD COUNT 11.4 10^3/uL (4.3-11.0)
[2018-01-22 09:43] LABS: BUN/CREATININE RATIO 21; CALCIUM 9.4 MG/DL (8.5-10.1); CARBON DIOXIDE 24 MMOL/L (21-32); CHLORIDE 102 MMOL/L (98-107); CREATININE SERUM 0.86 MG/DL (0.60-1.30); GFR ESTIMATED > 60; GLUCOSE 125 MG/DL (70-105); POTASSIUM 3.9 MMOL/L (3.6-5.0); SODIUM 135 MMOL/L (135-145)
[~2018-01-29] VITALS: Ht 177.8 cm; Wt 130.6 kg
[~2018-01-29 08:55] MED LIST changes: +BENDAMUSTINE HCL 140 MG in NS (IVPB) CANCER CENTER 50 ML IV SCH; +LIDOCAINE 1% 20 ML (XYLOCAINE) VIAL CANCER CTR ONE; +NS IV 1000 ML (CANCER CTR) IV SCH; +NS IV 500 ML (CANCER CENTER) 500 ML ONE; +ONDANSETRON MDV (CANCER CENTER 16 MG, DEXAMETHASONE INJECTION 10 MG in NS (IVPB) CANCER... IV SCH; +riTUXimab 500 MG, riTUXimab FOR IV INJ CONC 300 MG in NS (IVPB) CANCER CENTER 186 ML IV SCH
[2018-01-29 09:21] LABS: BASOPHILS % (AUTO) 0 % (0-10); EOSINOPHILS # (AUTO) 0.2 10^3/uL (0.0-0.3); EOSINOPHILS % (AUTO) 2 % (0-10); HEMATOCRIT 34 % (40-54); HEMOGLOBIN 11.3 G/DL (13.3-17.7); LYMPHOCYTES # (AUTO) 6.3 X 10^3 (1.0-4.0); LYMPHOCYTES % (AUTO) 55 % (12-44); MEAN CORPUSCULAR HEMOGLOBIN 29 PG (25-34); MEAN CORPUSCULAR HGB CONC 33 G/DL (32-36); MEAN CORPUSCULAR VOLUME 86 FL (80-99); MEAN PLATELET VOLUME 9.9 FL (7.4-10.4); MONOCYTES # (AUTO) 0.6 X 10^3 (0.0-1.0); MONOCYTES % (AUTO) 5 % (0-12); NEUTROPHILS # (AUTO) 4.3 X 10^3 (1.8-7.8); NEUTROPHILS % (AUTO) 38 % (42-75); PLATELET COUNT 240 10^3/uL (130-400); RED BLOOD COUNT 3.96 10^6/uL (4.35-5.85); RED CELL DISTRIBUTION WIDTH 14.4 % (10.0-14.5); WHITE BLOOD COUNT 11.5 10^3/uL (4.3-11.0)
[2018-01-29 09:46] LABS: BUN/CREATININE RATIO 24; CALCIUM 9.5 MG/DL (8.5-10.1); CARBON DIOXIDE 22 MMOL/L (21-32); CHLORIDE 101 MMOL/L (98-107); GFR ESTIMATED > 60; GLUCOSE 133 MG/DL (70-105); POTASSIUM 4.2 MMOL/L (3.6-5.0); SODIUM 135 MMOL/L (135-145)
== END 2018-01-31 | disposition home or self-care (01) ==
LOC: ONC 08:55
PROVIDERS: ATTEND Internal Medicine Hematology & Oncology
DX: D72.820 Lymphocytosis (symptomatic) (principal); D64.9 Anemia, unspecified; E11.9 Type 2 diabetes mellitus without complications; I10 Essential (primary) hypertension; Z79.82 Long term (current) use of aspirin; Z79.4 Long term (current) use of insulin; Z79.899 Other long term (current) drug therapy; Z96.653 Presence of artificial knee joint, bilateral
CPT/HCPCS: 36415; 38222; 80048; 80053; 80074; 82607; 82728; 82746; 83090; 83540; 83615; 83921; 85007; 85025; 85027; 85045; 85097; 88184; 88185; 88305; 88311; 88313; 96375; 96409; 99213; 99214; J9310

== ENCOUNTER → 2018-04-04 | Outpatient (CLI) | payer MEDICARE, OTHER ==
[~2018-04-04] MED LIST changes: -AMLO5TAB7 PO; +AMLO5TAB9 PO; +BARIUM SUSPENSION 2.1% (VANILLA SILQ) 450 ML PO ONE; -BENDAMUSTINE HCL 140 MG in NS (IVPB) CANCER CENTER 50 ML IV SCH; +CATHETER FLUSH 10 ML SYR IV PRN; +IOHEXOL 350 MG/ML 100 ML (OMNIPAQUE 350) VIAL IV ONE; -LIDOCAINE 1% 20 ML (XYLOCAINE) VIAL CANCER CTR ONE; +NS 100 ML (IVPB) BAG IV ONE; -NS IV 1000 ML (CANCER CTR) IV SCH; -NS IV 500 ML (CANCER CENTER) 500 ML ONE; -ONDANSETRON MDV (CANCER CENTER 16 MG, DEXAMETHASONE INJECTION 10 MG in NS (IVPB) CANCER... IV SCH; +RECEIVED CONTRAST (Hold Metformin) IV SCH; -riTUXimab 500 MG, riTUXimab FOR IV INJ CONC 300 MG in NS (IVPB) CANCER CENTER 186 ML IV SCH
--- NOTE | 2018-04-04 17:29 | Diagnostic Imaging Report ---
EXAM: CT NECK/CHEST/ABDOMEN/PELVIS W INDICATION: Leukocytosis. Leukemia. COMPARISON: CT neck, chest, abdomen and pelvis with IV contrast 11/07/2017. FINDINGS: NECK: Again seen is the diffuse cervical lymphadenopathy involving every level of the cervical lymph nodes. A lymph node immediately adjacent the left thyroid lobe measures 1.6 x 1.9 cm today, previously 1.3 x 1.6 cm. A previously measured 1.6 cm right level II lymph node measures 1.9 cm today. The thyroid and major salivary glands are unremarkable. The pharyngeal and laryngeal soft tissues are symmetric bilaterally with no discrete mass or enhancement. The floor of the mouth, tongue base and epiglottis are negative. Stable moderate spondylotic changes in the cervical spine. No acute osseous findings. The paranasal sinuses and mastoids are clear. Skull base is intact. CT CHEST: There is diffuse mediastinal, hilar and axillary lymphadenopathy. Several of the mediastinal and hilar lymph nodes are calcified consistent with prior granulomatous infection. The axillary lymphadenopathy is not convincingly changed. For example, a left axillary lymph node which previously measured 1.1 cm now measures 1.0 cm. A right axillary lymph node which previously measured 0.9 cm now measures 0.9 cm. Linear atelectasis in the upper lobes. No new focal pulmonary opacity. No pleural effusion or pneumothorax. Normal heart size. No pericardial effusion. Normal caliber thoracic aorta and main pulmonary arteries. No acute osseous findings. ABDOMEN AND PELVIS: The diffuse abdominal, mesenteric and retroperitoneal lymphadenopathy appears overall stable. For example, a right common iliac chain lymph node which previously measured 2.7 cm, measures 2.7 cm today. A gastrohepatic lymph node which previously measured 0.8 cm now measures 0.8 cm. Cholelithiasis. The liver, pancreas, spleen, adrenals, kidneys, collecting systems and bladder are unremarkable. No free intraperitoneal air or fluid. No evidence of bowel obstruction or inflammation. No acute osseous findings. IMPRESSION: 1. Again noted is the diffuse lymphadenopathy involving the neck, chest, abdomen and pelvis. This appears to have progressed in the neck, measurements above. No necrotic lymph nodes are identified. There is no convincing change in the lymph nodes along the chest or abdomen. 2. No acute CT findings in the chest, abdomen or pelvis. Dictated by: Dictated on workstation # [id number]
== END ==
LOC: RAD 09:55
PROVIDERS: ATTEND Nurse Practitioner Adult Health
DX: C91.10 Chronic lymphocytic leukemia of B-cell type not having achieved remission (principal)
CPT/HCPCS: 70491; 71260; 74176

== ENCOUNTER 2018-04-13 05:33 | Outpatient (CLI) | payer MEDICARE, OTHER ==
[~2018-04-13] VITALS: Ht 180.3 cm; Wt 128.4 kg
[~2018-04-13 05:33] MED LIST changes: -BARIUM SUSPENSION 2.1% (VANILLA SILQ) 450 ML PO ONE; -CATHETER FLUSH 10 ML SYR IV PRN; -IOHEXOL 350 MG/ML 100 ML (OMNIPAQUE 350) VIAL IV ONE; -NS 100 ML (IVPB) BAG IV ONE; -RECEIVED CONTRAST (Hold Metformin) IV SCH
== END 2018-04-13 14:59 | disposition home or self-care (01) ==
LOC: PREOP 05:33
PROVIDERS: ATTEND Surgery
DX: Z01.818 Encounter for other preprocedural examination (principal)

== ENCOUNTER 2018-04-18 07:59 | Day surgery (SDC) | payer MEDICARE, OTHER ==
[~2018-04-18] VITALS: Ht 180.3 cm; Wt 130.7 kg
[2018-04-18] MEDS ORDERED: LACTATED RINGERS 1,000 ML IV PRN (08:21)
[2018-04-18] MEDS ORDERED: ceFAZolin 2 GM IV Premixed 50 ML IV ONE (08:30)
[2018-04-18] MEDS ORDERED: SEVOFLURANE (ULTANE) 15 ML INHAL SOLN ONE (08:31)
[2018-04-18] MEDS ORDERED: LIDOCAINE PF 2% 5 ML (XYLOCAINE) VIAL ONE (08:31)
[2018-04-18] MEDS ORDERED: proPOfol 200 MG/20 ML (DIPRIVAN) VIAL IV ONE ×2 (08:31→10:14)
[2018-04-18] MEDS ORDERED: fentaNYL INJECTION 100 MCG/2 ML AMP ONE ×2 (08:31→10:06)
[2018-04-18] MEDS ORDERED: MIDAZOLAM 2 MG/2 ML (VERSED) VIAL ONE (08:32)
[2018-04-18 08:39] VITALS: BP 162/83
[2018-04-18] MEDS ORDERED: CATHETER FLUSH 10 ML SYR IV PRN (08:45)
[2018-04-18] MEDS ORDERED: LIDOCAINE 1% INJ 20 ML 20 ML VIAL ONE ×2 (08:53→09:13)
[2018-04-18] MEDS ORDERED: BUP/EPI 0.5% 1:200,000 (SENSORCAINE) 30 ML VIAL ONE ×3 (08:53→09:15)
--- NOTE | 2018-04-18 09:52 | Progress Note-Pre Operative ---
Pre-Operative Progress Note H&P Reviewed The H&P was reviewed, patient examined and no changes noted. Time Seen by Provider: 09:49 Date H&P Reviewed: Apr 18, 2018 Time H&P Reviewed: 09:50 Pre-Operative Diagnosis: Generalized lymphadenopathy SUSY ROTHMAN DO Apr 18, 2018 09:52
[2018-04-18] MEDS ORDERED: ONDANSETRON 4 MG/2 ML (SDV) Z0FRAN ONE (10:14)
--- NOTE | 2018-04-18 10:25 | Progress Note-Post Operative ---
Post-Operative Progess Note Surgeon (s)/Production Weigher (s) Surgeon SUSY ROTHMAN DO Production Weigher: none Pre-Operative Diagnosis Generalized lymphadenopathy Post-Operative Diagnosis Same plus CLL Procedure & Operative Findings Date of Procedure 04/18/18 Procedure Performed/Findings Exc of Left Inguinal Lymph nodes Anesthesia Type LMA Estimated Blood Loss Estimated blood loss (mL): scant Specimens/Packing Specimens Removed 2 Left Inguinal Lymph nodes SUSY ROTHMAN DO Apr 18, 2018 10:25
--- NOTE | 2018-04-18 10:27 | Discharge Inst-Surgical ---
Discharge Inst-Surgical Depart Medication/Instructions New, Converted or Re-Newed RX: Other (pt has home pain meds) Patient Instructions Follow up Appt: Make appointment for 1 week. [phone] Instructions: No strenuous activity. May shower in 24 hours, no tub bath or soaking. Use incentive spirometer at home as directed. No Smoking Skin/Wound Care: May remove bandages in am. You need to leave the Dermabond on incision it will fall off on it's own. Symptoms to Report: Appetite Changes, Extremity Discoloration, Numbness/Tingling, Swelling Increased , Bleeding Excessive, Eyesight Changes, Pain Increased, Urine Color Change, Constipation(Persistent), Fever over 101 degree F, Pain/Pressure in chest, Urinating Difficulty, Cough Up/Vomit Blood, Heart Beat Irreg/Pounding, Pain/ Pressure in jaw, Cramps in feet or legs, Lightheadedness, Pain/Pressure in shoulder, Diarrhea(Persistent), Memory Changes Suddenly, Questions/Concerns, Weight gain consecutive days, Dizziness/Fainting, Nausea/Vomiting, Shortness of Breath, Weight gain over 2 pounds If questions or concerns contact your physician Or seek help at emergency department. Activity Activity as Tolerated: Yes Activity Instructions: Avoid Stress to Incision Diet Discharge Diet: No Restrictions Diet After 24 Hours: Clear Liquid if Nauseous If Any Problems/Questions/Issu: Contact Your Physician, Go to Emergency Room Skin/Wound Care Infection Signs and Symptoms: Increased Redness, Foul Odor of Wound, Increased Drainage, Skin Itchy or Has a Rash, Increased Swelling, Temperature Above 101 F Bathing Instructions: Shower Stitches/[place]/Dermabond Dis: Dermabond Ice Pack: Ice On and Off Site SUSY ROTHMAN DO Apr 18, 2018 10:27
[2018-04-18] MEDS ORDERED: MEPERIDINE (DEMEROL) INJ 50 MG/ML IVP ONE (10:45)
[2018-04-18] MEDS ORDERED: PROMETHAZINE INJ 25 MG/ML (PHENERGAN) AMP IVP ONE (10:45)
[2018-04-18] MEDS ORDERED: morphine INJ 10 MG/ML 1ML (SYR OR VIAL) IVP ONE (10:45)
[2018-04-18] MEDS ORDERED: HYDROmorphone 2 MG/ML VIAL (DILAUDID) IV ONE (10:45)
[2018-04-18] MEDS ORDERED: ONDANSETRON 4 MG/2 ML (SDV) Z0FRAN IVP PRN (10:45)
[2018-04-18 11:15] VITALS: BP 114/58
--- OUTSIDE RECORDS SUMMARY | 2018-04-18 11:29 | XMS REPORT ---
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 756133210 Problem Other elevated white blood cell (WBC) count D72.828 Active 054505774 Problem Other chronic pain G89.29 Active 23778960 Problem long term current use of insulin Z79.4 Active 729897737 Problem Type 2 diabetes mellitus with hyperglycemia E11.65 Active 242308030 Problem Type 2 diabetes mellitus without complications E11.9 Active 148987542 Problem Controlled type 2 diabetes mellitus without complication, without long -term current use of insulin E11.9 Active 842853406 ALLERGIES No Known Allergies ENCOUNTERS Encounter Location Date Diagnosis [place] [id number] [place] [address] 11777- 3617 Oct, Other elevated white blood cell (WBC) count D72.828 and Type 2 diabetes mellitus with other circulatory complications E11.59 [facility] [address] [address] Sep, [facility] [id number] [place] [address] 86362- 5050 Sep, Diabetes type 2, controlled E11.9 [facility] [id number] [place] [address] 18270- 2772 Aug, Type 2 diabetes mellitus with hyperglycemia E11.65 [facility] [address] [place] [address] 77749- 9072 July, [facility] [address] [place] [address]- 8390 Jun, Diabetes type 2, controlled E11.9 ; Other chronic pain G89.29 ; Pain in left knee M25.562 and Pain in right knee M25.561 [place] [address] [address] [id number] [place] [address] 38398- 0544 May, [place] [address] [address] [id number] [place] [address] 67058- 3453 Feb, Other viral agents as the cause of diseases classified elsewhere B97.89 and Acute upper respiratory infection, unspecified J06.9 [place] [address] [address] [id number] [place] [address] 82497- 2986 Feb, [place] [address] [address] [id number] [place] [address] 44890- 3011 Feb, Type 2 diabetes mellitus without complications E11.9 and long term current use of insulin Z79.4 [place] [address] [place] [address] 00178- 3203 Dec, [place] [address] [place] [address] 12230- 0545 Dec, [place] [address] [place] [address] 49744- 5108 Nov, Type 2 diabetes mellitus without complications E11.9 and long term current use of insulin Z79.4 [place] [address] [address] 5315 Nov, [place] [address] [place] [address] 08086- 7721 Nov, Controlled type 2 diabetes mellitus without complication, without long-term current use of insulin E11.9 [place] [address] [place] [address] 37952- 1829 Nov, Controlled type 2 diabetes mellitus without complication, without long-term current use of insulin E11.9 [place] [address] [place] [address] 83470- 3726 Nov, Type 2 diabetes mellitus with other circulatory complications E11.59 [facility] [address] 8936 Oct, Type 2 diabetes mellitus with hyperglycemia E11.65 [facility] [address] 8696 Oct, [facility] [address] [place] [address] 41594- 0477 Oct, [facility] [address] 0071 Oct, Type 2 diabetes mellitus without complications E11.9 [facility] [address] [place] [address] 92677- 7496 Sep, Type 2 diabetes mellitus with hyperglycemia E11.65 [facility] [address] [address]- 7699 Sep, Type 2 diabetes mellitus with other circulatory complications E11.59 [facility] [address] [address]- 4543 Aug, [facility] [address] 9699 July, Controlled type 2 diabetes mellitus without complication, without long-term current use of insulin E11.9 [facility] [address] [address]- 0714 May, [facility] [address] [address] 6888 Feb, Controlled type 2 diabetes mellitus without complication, without long-term current use of insulin E11.9 [facility] [address] 7613 Jan, Controlled type 2 diabetes mellitus without complication, without long-term current use of insulin E11.9 [facility] [id number] 3906 Jan, Type 2 diabetes mellitus with hyperglycemia E11.65 and half-way current use of insulin Z79.4 [facility] [address] [address]- 8804 16 Nov, 2015 Diabetes type 2, controlled E11.9 [facility] [address] [address] 9147 Aug, Type 2 diabetes mellitus with other circulatory complications E11.59 and Hypertension, essential I10 [facility] [id number] [place] [address] 10407- 1897 July, Type 2 diabetes mellitus with hyperglycemia E11.65 and Hypertension, benign I10 [place] [address] [id number] [place] [address] 16832- 5841 May, Type 2 diabetes mellitus with other circulatory complications E11.59 [place] [address] [id number] [place] [address] 84753- 0301 Apr, Diabetes type 2, controlled E11.9 [facility] [id number] [address]- 5768 Jan, Type 2 diabetes mellitus with other circulatory complications E11.59 [place] [id number] [address] 1941 Dec, Type 2 diabetes mellitus with other circulatory complications E11.59 [place] [address], [place] [address]- 1239 Aug, Diabetes 250.00 [facility] [id number] [place] [address] 51739- 9659 July, Diabetes 250.00 [place] [address] [address]- 0186 Jun, [place] [address] [address] [id number] [place] [address] [id number]- 7246 Jun, [facility] [address], [place] [address]- 7593 Jun, [place] [address] [place] [id number] [address]- 2113 14 Jun, 2014 [facility] [place] [facility] [address] [id number] [place] [address]- 8799 13 Jun, 2014 [facility] [place] [facility] [address] [id number] [place] [address]- 8578 May, [facility] [place] [facility] [address] [id number] [place] [address]- 8533 May, [facility] [place] [facility] [address] [id number] [place] [address]- 2400 Apr, [facility] [place] [facility] [address] [id number] [place] [address]- 2327 Apr, [facility] [place] [facility] [address] [id number] [place] [address]- 9033 Mar, [facility] [place] [facility] [address] [id number] [place] [address]- 1121 Mar, [facility] [place] [facility] [address] [id number] [place] [address]- 3383 Feb, [facility] [place] [facility] [address] [id number] [place] [address]- 5933 Feb, [facility] [place] [facility] [address] [id number] [place] [address]- 0917 Feb, [facility] [place] [facility] [address] [id number] [place] [address]- 5085 Feb, [facility] [place] [facility] [address] [id number] [place] [address]- 9151 15 Feb, 2014 [facility] [place] [facility] [address] [id number] [place] 4666 Feb, [facility] [place] [facility] [address] [id number] [place] [address]- 2896 Dec, [facility] [place] [facility] [address] [id number] [place] [address]- 3901 Dec, [facility] [place] [facility] [address] [id number] [place] [address]- 5713 29 Nov, 2013 [facility] [place] [facility] [address] [id number] [place] [address]- 3227 29 Nov, 2013 [facility] [place] [facility] [address] [id number] [place] [address]- 8537 29 Nov, 2013 [facility] [place] [facility] [address] [id number] [place] [address]- 9414 29 Nov, 2013 [facility] [place] [facility] [address] [id number] [place] [address]- 2712 17 Nov, 2013 [facility] [place] [facility] [address] [id number] [place] [address]- 4237 Nov, [facility] [place] [facility] [address] [id number] [place] [address]- 5475 Nov, [facility] [place] [facility] [address] [id number] [place] [address]- 0820 Nov, [facility] [place] [facility] [address] [id number] [place] [address]- 6265 Aug, [facility] [place] [facility] [address] [id number] [place] [address]- 9828 Aug, [facility] [place] [facility] [address] [id number], [place] [address]- 6009 Aug, [facility] [place] [facility] [address] [id number], [place] [address]- 7332 Aug, [facility] [place] [facility] [address] [id number] [place] [address]- 5220 July, [facility] [place] [facility] [address] [id number] [place] [address]- 6812 July, [facility] [place] [facility] [address] [id number] [place] [address]- 4524 Jun, [facility] [place] [facility] [address] [id number] [place] [address]- 6034 15 Jun, 2013 [facility] [place] [facility] [address] [id number] [place] [address]- 3259 15 Jun, 2013 [facility] [place] [facility] [address] [id number] [place] [address]- 8906 15 Jun, 2013 [facility] [place] [facility] [address] [id number] [place] [address]- 2339 May, [facility] [place] [facility] [address] [id number] [place] [address]- 8284 May, [facility] [place] [facility] [address] [id number] [place] [address]- 0700 Apr, [facility] [place] [facility] [address] [id number] [place] [address]- 1496 Apr, [facility] [place] [facility] [address] [id number] [place] [address]- 6949 Mar, [facility] [place] [facility] [address] [id number] [place] [address]- 9315 Mar, [facility] [place] [facility] [address] [id number] [place] [address]- 8623 Mar, [facility] [place] [facility] [address] [id number] [place] [address]- 9397 Mar, [facility] [place] [facility] [address] [id number] [place] [address]- 2600 Feb, [facility] [place] [facility] [address] [id number] [place] [address]- 4308 Feb, [facility] [place] [facility] [address] [id number] [place] [address]- 0022 Jan, [facility] [place] [facility] [address] [id number] [place] [address]- 4087 Jan, [facility] [place] [facility] [address] [id number] [place] [address]- 8133 Dec, [facility] [place] [facility] [address] [id number] [place] [address]- 0097 Dec, [facility] [address] [id number] [place] [address]- 0376 Dec, [facility] [address] [id number] [place] [address]- 4194 Dec, [facility] [address] [id number] [place] [address]- 0937 Nov, [facility] [address] [id number] [place] [address]- 9381 Sep, [facility] [address] [id number] [place] [address]- 3549 Sep, [facility] [address] [id number] [place] [address]- 0663 Aug, [facility] [address] [id number] [place] [address]- 6035 July, [facility] [address] [id number] [place] [address]- 3746 Jun, [facility] [address] [id number] [place] [address]- 6568 May, [facility] [address] [id number] [place] [address]- 5407 May, [facility] [address] [id number] [place] [address]- 9172 May, [facility] [address] [id number] [place] [address]- 6471 May, [facility] [place] [facility] [address] [id number] [place] [address]- 2393 May, [facility] [address] [id number] [place] [address]- 1798 Feb, [facility] [address] [id number], [place] [address]- 0390 Feb, [facility] [place] [facility] [address] [id number] [place] [address]- 9576 Jan, [facility] [place] [facility] [address] [id number] [place] [address]- 8967 Jan, [facility] [place] [facility] [address] [id number] [place] [address]- 8757 Jan, [facility] [place] [facility] [address] [id number] [place] [address]- 2214 Jan, [facility] [place] [facility] [address] [id number] [place] [address]- 7809 Jan, [facility] [place] [facility] [address] [id number] [place] [address]- 4977 Jan, [facility] [place] [facility] [address] [facility] [id number] [place] [address]- 3212 Dec, [facility] [place] [facility] [address] [id number] [place] [address]- 3693 Dec, [facility] [place] [facility] [address] [id number] [place] [address]- 7567 Dec, [facility] [place] [facility] [address] [id number] [place] [address]- 8209 18 Dec, 2011 [facility] [place] [facility] [address] [id number], [place] [address]- 0508 10 Dec, 2011 [facility] [place] [facility] [address] [id number], [place] [address]- 1270 26 Nov, 2011 [facility] [place] [facility] [address] [id number] [place] [address]- 8624 18 Nov, 2011 [facility] [place] [facility] [address] [facility] [id number] [place] 6567 13 Nov, 2011 [facility] [place] [facility] [address] [facility] [id number] [place] 0827 Sep, [facility] [place] [facility] [address] [id number] [place] [address]- 3007 11 Aug, 2011 [facility] [address] [id number] [place] [address]- 1863 Aug, [facility] [place] [facility] [address] [id number] [place] [address]- 1776 May, [facility] [address] [id number] [place] [address]- 6361 Apr, [facility] [place] [facility] [address] [id number] [place] [address]- 7425 Mar, [facility] [address] [id number] [place] [address]- 4164 Mar, [facility] [address] [id number] [place] [address]- 9977 Dec, [facility] [address] [id number] [place] [address]- 6074 Sep, [facility] [address] [id number] [place] [address]- 7274 Feb, [facility] [address] [id number] [place] [address]- 3508 Feb, [facility] [address] [id number] [place] [address]- 2459 11 Jan, 2010 [facility] [place] [facility] [address] [id number] [place] [address]- 0123 08 Jan, 2010 [facility] [place] [facility] [address] [id number] [place] [address]- 3687 10 Nov, 2009 [facility] [place] [facility] [address] [id number] [place] [address]- 1614 15 Feb, 2009 [facility] [place] [facility] [address] [id number] [place] [address]- 2546 15 Feb, 2009 [facility] [place] [facility] [address] [id number] [place] [address]- 8356 Jan, [facility] [address] [facility] [id number], [place] [address]- 2546 Jan, [facility] [address] [place] [address]- 2546 Dec, [facility] [id number] [address]- 2546 Dec, [facility] [address], [place] [address]- 2546 Nov, [facility] [id number] [address] 2546 Oct, [facility] [address], [place] [address] 2546 Sep, [facility] [id number] [address] 2546 Aug, IMMUNIZATIONS No Known Immunizations SOCIAL HISTORY Never Assessed REASON FOR VISIT [facility] follow up, PT had surgery Wednesday 10/04 on his right knee, PT was released Saturday 10/07. PTs daughter discusses that his blood work that was done was discussed with him about leukemia. -Guzman [facility] PLAN OF CARE VITAL SIGNS Height 71 in 2017-10-09 Weight 276.4 lbs 2017-10-09 Temperature 97.9 degrees Fahrenheit 2017-10-09 Heart Rate 82 bpm 2017-10-09 Respiratory Rate 20 2017-10-09 Oximetry 98 % 2017-10-09 BMI 38.55 kg/m2 2017-10-09 Blood pressure systolic 150 mmHg 2017-10-09 Blood pressure diastolic 70 mmHg 2017-10-09 MEDICATIONS Medication Instructions Dosage Frequency Start Date End Date Duration Status Amaryl 4 MG Orally 2 times per day 1 tablet 90 Active Lisinopril-Hydrochlorothiazide 20-12.5MG Orally 2 times a day 1 tablet 12h Active Pen [place] 32G X 4 MM subcutaneously 4 times a day as directed with insulin 6h Sep, Active Fish Oil 1000 MG Orally Once a day 1 capsule 24h Active Metformin HCl 1000 mg 1 tablet with meals 12h Active Levemir FlexTouch 100 UNIT/ML DX E11.59 2 times a day 48 units 12h Oct, Active Aspirin 81 MG Orally Once a day 1 tablet 24h Active Amlodipine Besylate 5 mg 1 tablet 24h 90 Active NovoLog Flexpen 100 UNIT/ML Subcutaneous before meals inject 15 units Sep, Active Percocet 5-325 MG Orally every 4 hrs 1 tablet as needed 4h July, Active Glimepiride 4MG TAKE ONE TABLET BY MOUTH TWICE DAILY Active Lovastatin 20MG TAKE ONE TABLET BY MOUTH ONCE DAILY WITH A MEAL Active Metoprolol Tartrate 50MG TAKE ONE TABLET BY MOUTH TWICE DAILY WITH MEALS 90 Active RESULTS Name Result Date Reference Range A1C (IN HOUSE) 2017-10-09 A1C IN HOUSE 6.1 4.3 - 5.6 % Previous A1c 6.9 Lot [id number] Exp date 05/2019 PROCEDURES Procedure Date Ordered Result Body Site [facility] VISIT ESTABLISHED PATIENT Oct 09, 2017 GLYCATED HEMOGLOBIN TEST Oct 09, 2017 INSTRUCTIONS MEDICATIONS ADMINISTERED No Known Medications MEDICAL (GENERAL) HISTORY Type Description Date Medical History hypertension Medical History type II diabetes Medical History hyperlipidemia Medical History chronic pain-knees Surgical History tonsillectomy 1957 Surgical History carderacs removed from both eyes 2017 Surgical History Left knee replacement 2018 Surgical History Right knee replacement 2018 Hospitalization History surgeries
--- OUTSIDE RECORDS SUMMARY | 2018-04-18 11:29 | XMS REPORT ---
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 931033171 Problem Other elevated white blood cell (WBC) count D72.828 Active 664371011 Problem Other chronic pain G89.29 Active 01668354 Problem shelter current use of insulin Z79.4 Active 844165569 Problem Type 2 diabetes mellitus with hyperglycemia E11.65 Active 857956548 Problem Type 2 diabetes mellitus without complications E11.9 Active 297959257 Problem Controlled type 2 diabetes mellitus without complication, without long -term current use of insulin E11.9 Active [id number] ALLERGIES No Information ENCOUNTERS Encounter Location Date Diagnosis [facility] [id number] [place] [address] 62715- 2375 Feb, Type 2 diabetes mellitus with hyperglycemia E11.65 [facility] [address] [place] [address] 76337- 5952 Jan, Type 2 diabetes mellitus with other circulatory complications E11.59 [facility] [id number] [place] [address] 82904- 7987 Nov, [facility] [id number] [place] [address] 73210- 0502 Oct, Other elevated white blood cell (WBC) count D72.828 and Type 2 diabetes mellitus with other circulatory complications E11.59 [facility] [id number] [place] [address] 03497- 7651 Sep, [facility] [id number] [address] 0205 Sep, Diabetes type 2, controlled E11.9 [facility] [address] [address] Aug, Type 2 diabetes mellitus with hyperglycemia E11.65 [facility] [address] [address] 97[address] July, [facility] [id number] [place] [address] 49552- 8514 Jun, Diabetes type 2, controlled E11.9 ; Other chronic pain G89.29 ; Pain in left knee M25.562 and Pain in right knee M25.561 [place] [address], [place] [address] May, [facility] [address] [place] [address] 8[address] Feb, Other viral agents as the cause of diseases classified elsewhere B97.89 and Acute upper respiratory infection, unspecified J06.9 [facility] [address], [place] [address] 8189 Feb, [place] [address] [address] 2562 Feb, Type 2 diabetes mellitus without complications E11.9 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 [place] [address], [place] [address] 5297 Dec, [facility] [address] [place] [address] 4008 Dec, [facility] [address] [place] [address]- 9467 Nov, Type 2 diabetes mellitus without complications E11.9 and shelter current use of insulin Z79.4 [facility] [id number] [address]- 5886 Nov, [place] [address], [place] [address] 3902 Nov, Controlled type 2 diabetes mellitus without complication, without long-term current use of insulin E11.9 [facility] [address], [place] [address]- 4941 Nov, Controlled type 2 diabetes mellitus without complication, without long-term current use of insulin E11.9 [facility] [address] [address]- 5127 Nov, Type 2 diabetes mellitus with other circulatory complications E11.59 [facility] [address], [place] [address]- 9506 Oct, Type 2 diabetes mellitus with hyperglycemia E11.65 [place] [address], [place] [address]- 7590 Oct, [place] [address] [address]- 5791 Oct, [facility] [address] [address]- 9637 Oct, Type 2 diabetes mellitus without complications E11.9 [facility] [address], [place] [address]- 8373 Sep, Type 2 diabetes mellitus with hyperglycemia E11.65 [facility] [address], [place] [address]- 7402 Sep, Type 2 diabetes mellitus with other circulatory complications E11.59 [facility] [address], [place] [address]- 6524 Aug, [facility] [address], [place] [address]- 2065 July, Controlled type 2 diabetes mellitus without complication, without long-term current use of insulin E11.9 [facility] [address], [place] [address]- 0671 May, [facility] [address] [place] [address] 01522- 1332 Feb, Controlled type 2 diabetes mellitus without complication, without long-term current use of insulin E11.9 [place] [id number] [place] [address] 75700- 2604 Jan, Controlled type 2 diabetes mellitus without complication, without long-term current use of insulin E11.9 [place] [id number] [place] [address] 48582- 7111 Jan, Type 2 diabetes mellitus with hyperglycemia E11.65 and shelter current use of insulin Z79.4 [place] [id number] [place] [address] 47300- 0713 Nov, Diabetes type 2, controlled E11.9 [place] [id number] [place] [address] 02072- 7776 Aug, Type 2 diabetes mellitus with other circulatory complications E11.59 and Hypertension, essential I10 [place] [id number] [place] [address] 81822- 1363 July, Type 2 diabetes mellitus with hyperglycemia E11.65 and Hypertension, benign I10 [place] [id number] [place] [address] 31493- 8414 May, Type 2 diabetes mellitus with other circulatory complications E11.59 [place] [id number] [place] [address] 46842- 0745 Apr, Diabetes type 2, controlled E11.9 [place] [id number] [place] [address] 36337- 5828 Jan, Type 2 diabetes mellitus with other circulatory complications E11.59 [place] [id number] [place] [address] 23175- 8148 Dec, Type 2 diabetes mellitus with other circulatory complications E11.59 [place] [id number] [place] [address] 97504- 7346 Aug, Diabetes 250.00 [place] [id number] [place] [address] 84159- 3787 July, Diabetes 250.00 [facility] [address] [id number] [place] [address]- 2014 Jun, [facility] [address] [id number] [place] [address]- 6666 Jun, [facility] [address] [facility] [id number] [place] [address]- 7431 Jun, [facility] [address] [id number] [place] [address]- 9767 Jun, [facility] [address] [id number] [place] [address]- 4551 Jun, [facility] [address] [facility] [id number] [place] [address]- 0262 May, [facility] [address] [facility] [id number] [place] [address]- 2015 May, [facility] [address] [facility] [id number] [place] [address]- 1037 Apr, [facility] [address] [id number] [place] [address]- 5295 Apr, [facility] [address] [facility] [id number] [place] [address]- 9699 Mar, [facility] [address] [facility] [id number] [place] [address]- 0563 Mar, [facility] [place] [facility] [address] [facility] [id number] [place] [address]- 4640 Feb, [facility] [place] [facility] [address] [id number] [place] [address]- 3855 Feb, [facility] [place] [facility] [address] [facility] [id number] [place] [address]34 Feb, [facility] [place] [facility] [address] [facility] [id number] [place] [address]- 5702 Feb, [facility] [place] [facility] [address] [id number] [place] [address]- 4195 15 Feb, 2014 [facility] [place] [facility] [address] [id number] [place] [address]- 2087 15 Feb, 2014 [facility] [place] [facility] [address] [id number] [place] [address]- 0726 Dec, [facility] [place] [facility] [address] [id number] [place] [address]- 2097 Dec, [facility] [place] [facility] [address] [id number] [place] [address]- 5850 29 Nov, 2013 [facility] [place] [facility] [address] [id number] [place] [address]- 9259 29 Nov, 2013 [facility] [place] [facility] [address] [id number] [place] [address]- 0313 29 Nov, 2013 [facility] [place] [facility] [address] [id number] [place] [address]- 8228 29 Nov, 2013 [facility] [place] [facility] [address] [id number] [place] [address]- 3518 17 Nov, 2013 [facility] [place] [facility] [address] [id number] [place] [address]- 4875 17 Nov, 2013 [facility] [place] [facility] [address] [id number] [place] [address]- 4466 12 Nov, 2013 [facility] [place] [facility] [address] [id number] [place] [address]- 8855 Nov, [facility] [place] [facility] [address] [id number] [place] [address]- 4970 Aug, [facility] [place] [facility] [address] [id number] [place] [address]- 5692 Aug, [facility] [place] [facility] [address] [id number] [place] [address]- 6825 Aug, [facility] [place] [facility] [address] [id number] [place] [address]- 9720 Aug, [facility] [place] [facility] [address] [id number] [place] [address]- 9861 July, [facility] [place] [facility] [address] [id number] [place] [address]- 7811 July, [facility] [place] [facility] [address] [id number] [place] [address]- 4241 Jun, [facility] [place] [facility] [address] [id number] [place] [address]- 2652 Jun, [facility] [place] [facility] [address] [id number] [place] [address]- 1713 Jun, [facility] [place] [facility] [address] [id number] [place] [address]- 4200 Jun, [facility] [place] [facility] [address] [id number] [place] [address]- 0836 May, [facility] [place] [facility] [address] [id number] [place] [address]- 6814 May, [facility] [place] [facility] [address] [id number] [place] [address]- 3028 Apr, [facility] [place] [facility] [address] [id number] [place] [address]- 1323 Apr, [facility] [place] [facility] [address] [id number] [place] [address]- 6087 Mar, [facility] [place] [facility] [address] [id number] [place] [address]- 1711 Mar, [facility] [place] [facility] [address] [id number] [place] [address]- 5016 Mar, [facility] [place] [facility] [address] [id number] [place] [address]- 1861 Mar, [facility] [place] [facility] [address] [id number] [place] [address]- 2051 Feb, [facility] [place] [facility] [address] [id number] [place] [address]- 5849 Feb, [facility] [address] [id number] [place] [address]- 9680 Jan, [facility] [place] [facility] [address] [id number] [place] [address]- 4409 Jan, [facility] [address] [id number] [place] [address]- 4525 Dec, [facility] [place] [facility] [address] [id number] [place] [address]- 7508 Dec, [facility] [address] [id number] [place] [address]- 9502 Dec, [facility] [place] [facility] [address] [id number] [place] [address]- 8902 Dec, [facility] [address] [id number] [place] [address]- 9073 Nov, [facility] [place] [facility] [address] [id number] [place] [address]- 7246 Sep, [facility] [place] [facility] [address] [id number] [place] [address]- 5548 Sep, [facility] [place] [facility] [address] [facility] [id number] [place] [address]- 3875 Aug, [facility] [place] [facility] [address] [id number] [place] [address]- 2029 July, [facility] [place] [facility] [address] [id number] [place] [address]- 0762 Jun, [facility] [place] [facility] [address] [id number] [place] [address]- 0093 May, [facility] [place] [facility] [address] [id number] [place] [address]- 4265 May, [facility] [place] [facility] [address] [id number] [place] [address]- 0469 May, [facility] [place] [facility] [address] [id number] [place] [address]- 0847 May, [facility] [place] [facility] [address] [id number] [place] [address]- 8104 May, [facility] [place] [facility] [address] [id number] [place] [address]- 1413 Feb, [facility] [place] [facility] [id number] [place] [address], [place] [address]- 1855 Feb, [facility] [place] [facility] [address] [id number] [place] [address]- 5975 Jan, [facility] [place] [facility] [address] [id number] [place] [address]- 1795 Jan, [facility] [place] [facility] [address] [facility] [id number] [place] [address]- 4423 Jan, [facility] [place] [facility] [address] [id number] [place] [address]- 6178 Jan, [facility] [place] [facility] [address] [id number] [place] [address]- 8126 Jan, [facility] [place] [facility] [address] [facility] [id number] [place] [address]- 3959 Jan, [facility] [place] [facility] [address] [facility] [id number] [place] [address]- 7270 Dec, [facility] [place] [facility] [address] [id number], [place] [address]- 0739 Dec, [facility] [place] [facility] [address] [id number] [place] [address]- 0176 Dec, [facility] [place] [facility] [address] [id number] [place] [address]- 3777 Dec, [facility] [place] [facility] [address] [id number] [place] [address]- 8327 Dec, [facility] [place] [facility] [address] [id number] [place] [address]- 2546 26 Nov, 2011 [facility] [place] [facility] [address] [id number] [place] [address]- 9636 18 Nov, 2011 [facility] [place] [facility] [address] [id number] [place] [address]- 9206 13 Nov, 2011 [facility] [place] [facility] [address] [id number] [place] [address] 2546 Sep, [facility] [place] [facility] [address] [id number] [place] [address]- 8010 Aug, [facility] [place] [facility] [address] [id number] [place] [address]- 8554 Aug, [facility] [place] [facility] [address] [id number] [place] [address]- 9495 May, [facility] [place] [facility] [address] [id number] [place] [address]- 6279 Apr, [facility] [place] [facility] [address] [id number] [place] [address]- 3100 Mar, [facility] [place] [facility] [address] [id number] [place] [address]- 4252 Mar, [facility] [place] [facility] [address] [id number] [place] [address]- 8476 Dec, [facility] [place] [facility] [address] [id number] [place] [address]- 6611 Sep, [facility] [place] [facility] [address] [id number] [place] [address]- 4308 Feb, [facility] [place] [facility] [address] [id number] [place] [address]- 7476 Feb, [facility] [place] [facility] [address] [id number] [place] [address]- 7869 Jan, [facility] [place] [facility] [address] [id number] [place] [address]- 6909 Jan, [facility] [place] [facility] [address], [place] [address]- 6343 10 Nov, 2009 [facility] [address], [place] [address]- 5811 15 Feb, 2009 [facility] [address], [place] [address]- 9308 Feb, [facility] [address] 7550 Jan, [facility] [address], [place] [address]- 6106 Jan, [facility] [address] [place] [address] 407974- 8852 Dec, [facility] [address], [place] [address]- 1664 Dec, [facility] [address] [place] [address] 70656- 7958 Nov, [facility] [address], [place] [address]- 8866 Oct, [facility] [address], [place] [address]- 5520 Sep, [facility] [address], [place] [address]- 9440 Aug, IMMUNIZATIONS No Known Immunizations SOCIAL HISTORY Never Assessed REASON FOR VISIT PLAN OF CARE VITAL SIGNS MEDICATIONS Medication Instructions Dosage Frequency Start Date End Date Duration Status Bendamustine HCl 100 MG/4ML as directed Unknown Zofran 8 MG Orally Twice a day 1 tablet 12h 30 day(s) Unknown Lisinopril-Hydrochlorothiazide 20-12.5MG TAKE TWO TABLETS BY MOUTH ONCE DAILY 90 Unknown Levemir FlexTouch 100 UNIT/ML DX E11.59 2 times a day 50 units 12h 30 Unknown Metoprolol Tartrate 50MG TAKE ONE TABLET BY MOUTH TWICE DAILY WITH MEALS 90 Unknown Percocet 5-325 MG Orally every 4 hrs 1 tablet as needed 4h July, Unknown Pen [place] 32G X 4 MM subcutaneously 4 times a day as directed with insulin 6h Sep, Active Dexamethasone 6 MG Orally Once a day 1 tablet 24h 30 day(s) Unknown Glimepiride 4MG TAKE ONE TABLET BY MOUTH TWICE DAILY Unknown Lovastatin 20MG 1 tablet 24h Unknown NovoLog Flexpen 100 UNIT/ML Subcutaneous before meals inject 15 units Sep, Unknown Fish Oil 1000 MG Orally Once a day 1 capsule 24h Unknown Metformin HCl 1000 mg 1 tablet with meals 12h 90 Unknown Amlodipine Besylate 5 mg 1 tablet 24h 90 Unknown Aspirin 81 MG Orally Once a day 1 tablet 24h Unknown Amaryl 4 MG Orally 2 times per day 1 tablet 90 Unknown RESULTS No Results PROCEDURES No Known procedures INSTRUCTIONS MEDICATIONS ADMINISTERED No Known Medications MEDICAL (GENERAL) HISTORY Type Description Date Medical History hypertension Medical History type II diabetes Medical History hyperlipidemia Medical History chronic pain-knees 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
--- OUTSIDE RECORDS SUMMARY | 2018-04-18 11:29 | XMS REPORT ---
Author Author SHADIA BLAIR Organization [facility] Address [address] [place] [address] Care Team Providers Care Picker / Packer Name Role Phone SHADIA BLAIR Unavailable PROBLEMS Type Condition ICD9-CM Code WID68-JY Code Onset Dates Condition Status SNOMED Code Problem Diabetes type 2, controlled E11.9 Active 79940410 Problem 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 771932485 Problem Other elevated white blood cell (WBC) count D72.828 Active 676983877 Problem Other chronic pain G89.29 Active 30043214 Problem long term current use of insulin Z79.4 Active 855664716 Problem Type 2 diabetes mellitus with hyperglycemia E11.65 Active 226571164 Problem Type 2 diabetes mellitus without complications E11.9 Active 741623387 Problem Controlled type 2 diabetes mellitus without complication, without long -term current use of insulin E11.9 Active [id number] ALLERGIES No Information ENCOUNTERS Encounter Location Date Diagnosis [place] [id number] [place] [address] 38142- [address]357 Nov, [facility] [id number] [place] [address] 18148- 7919 Oct, Other elevated white blood cell (WBC) count D72.828 and Type 2 diabetes mellitus with other circulatory complications E11.59 [facility] [id number] [place] [address] 41651- 4076 Sep, [facility] [address] [address]- [address]41 Sep, Diabetes type 2, controlled E11.9 [facility] [id number] [place] [address] 38482- 5659 Aug, Type 2 diabetes mellitus with hyperglycemia E11.65 [facility] [address] [place] [address] July, [place] [address] [address] 8[address] Jun, Diabetes type 2, controlled E11.9 ; Other chronic pain G89.29 ; Pain in left knee M25.562 and Pain in right knee M25.561 [place] [address] [address] 9601 May, [place] [id number] [place] [address] 64224- 1893 Feb, Other viral agents as the cause of diseases classified elsewhere B97.89 and Acute upper respiratory infection, unspecified J06.9 [place] [address] [address]- 1513 Feb, [place] [id number] [place] [address] 74430- 1908 Feb, Type 2 diabetes mellitus without complications E11.9 and long term current use of insulin Z79.4 [place] [address] [address] 4723 Dec, [place] [address] [address] 2940 Dec, [place] [address] [address]- 5194 Nov, Type 2 diabetes mellitus without complications E11.9 and intermediate current use of insulin Z79.4 [place] [address] [address]- 8469 Nov, [place] [address] [address]- 8777 Nov, Controlled type 2 diabetes mellitus without complication, without long-term current use of insulin E11.9 [place] [id number] [address]- 2703 Nov, Controlled type 2 diabetes mellitus without complication, without long-term current use of insulin E11.9 [facility] [id number] [address]- 7689 Nov, Type 2 diabetes mellitus with other circulatory complications E11.59 [facility] [address] [address] Oct, Type 2 diabetes mellitus with hyperglycemia E11.65 [facility] [address] 7[address] Oct, [facility] [address] [facility] [id number] [address] 2[address] Oct, [facility] [address] [address]- 4329 Oct, Type 2 diabetes mellitus without complications E11.9 [facility] [address] [address] 1980 Sep, Type 2 diabetes mellitus with hyperglycemia E11.65 [facility] [address] [address]- 2032 Sep, Type 2 diabetes mellitus with other circulatory complications E11.59 [facility] [address] [address]- 1629 Aug, [facility] [address] [address] 1889 July, Controlled type 2 diabetes mellitus without complication, without long-term current use of insulin E11.9 [facility] [id number] [address]- 5014 May, [facility] [address] [address]- 9225 Feb, Controlled type 2 diabetes mellitus without complication, without long-term current use of insulin E11.9 [facility] [id number] [address]- 7003 Jan, Controlled type 2 diabetes mellitus without complication, without long-term current use of insulin E11.9 [place] [address] [address]- 4751 Jan, Type 2 diabetes mellitus with hyperglycemia E11.65 and intermediate current use of insulin Z79.4 [facility] [address] [address]- 3587 16 Nov, 2015 Diabetes type 2, controlled E11.9 [facility] [id number] [place] [address] 16398- 4816 Aug, Type 2 diabetes mellitus with other circulatory complications E11.59 and Hypertension, essential I10 [facility] [id number] [place] [address] 55006- 4827 July, Type 2 diabetes mellitus with hyperglycemia E11.65 and Hypertension, benign I10 [facility] [id number] [place] [address] 44193- 1412 May, Type 2 diabetes mellitus with other circulatory complications E11.59 [facility] [id number] [place] [address] 52344- 7238 Apr, Diabetes type 2, controlled E11.9 [facility] [id number] [place] [address] 97769- 2914 Jan, Type 2 diabetes mellitus with other circulatory complications E11.59 [facility] [id number] [place] [address] 21520- 3214 Dec, Type 2 diabetes mellitus with other circulatory complications E11.59 [facility] [id number] [place] [address] 76501- 6761 Aug, Diabetes 250.00 [facility] [address] [place] [address] 58663- 9650 July, Diabetes 250.00 [facility] [address] [place] [address] 63526- 8153 Jun, [facility] [address] [address]- 6457 Jun, [facility] [address] [place] [address] 4687 28 Jun, 2014 [facility] [place] [facility] [address] [id number] [place] [address]- 3514 14 Jun, 2014 [facility] [place] [facility] [address] [id number] [place] [address]- 2640 13 Jun, 2014 [facility] [place] [facility] [address] [id number] [place] [address]- 4392 May, [facility] [place] [facility] [address] [id number] [place] [address]- 8660 May, [facility] [place] [facility] [address] [id number] [place] [address]- 5337 Apr, [facility] [place] [facility] [address] [id number] [place] [address]- 7043 Apr, [facility] [place] [facility] [address] [id number] [place] [address]- 2829 Mar, [facility] [address] [id number] [place] [address]- 6648 Mar, [facility] [place] [facility] [address] [id number] [place] [address]- 4105 Feb, [facility] [place] [facility] [address] [id number] [place] [address]- 0959 29 Feb, 2014 [facility] [place] [facility] [address] [id number] [place] [address]- 1665 Feb, [facility] [place] [facility] [address] [id number] [place] [address]- 2549 Feb, [facility] [place] [facility] [address] [id number] [place] [address]- 2396 Feb, [facility] [place] [facility] [address] [id number] [place] [address]- 0206 15 Feb, 2014 [facility] [place] [facility] [address] [id number] [place] [address]- 9862 Dec, [facility] [place] [facility] [address] [id number] [place] [address]- 6922 13 Dec, 2013 [facility] [place] [facility] [address] [id number] [place] [address]- 3245 29 Nov, 2013 [facility] [place] [facility] [address] [id number] [place] [address]- 7397 29 Nov, 2013 [facility] [place] [facility] [address] [id number] [place] [address]- 4763 29 Nov, 2013 [facility] [place] [facility] [address] [id number] [place] [address]- 5748 29 Nov, 2013 [facility] [place] [facility] [address] [id number] [place] [address]- 3536 17 Nov, 2013 [facility] [place] [facility] [address] [id number] [place] [address]- 1063 Nov, [facility] [place] [facility] [address] [id number] [place] [address]- 5472 Nov, [facility] [place] [facility] [address] [id number] [place] [address]- 1793 Nov, [facility] [place] [facility] [address] [id number] [place] [address]- 9019 Aug, [facility] [place] [facility] [address] [id number] [place] [address]- 3317 Aug, [facility] [place] [facility] [address] [id number] [address]- 2518 Aug, [facility] [place] [facility] [address] [id number] [place] [address]- 0326 Aug, [facility] [place] [facility] [address] [id number] [address]- 0144 July, [facility] [place] [facility] [address] [id number] [place] [address]- 1638 July, [facility] [place] [facility] [address] [id number] [place] [address]- 7019 15 Jun, 2013 [facility] [place] [facility] [address] [id number] [place] [address]- 0972 15 Jun, 2013 [facility] [place] [facility] [address] [id number] [place] [address]- 7438 15 Jun, 2013 [facility] [place] [facility] [address] [id number] [place] [address]- 3914 Jun, [facility] [place] [facility] [address] [id number] [place] [address]- 7756 May, [facility] [place] [facility] [address] [id number] [place] [address]- 2746 May, [facility] [place] [facility] [address] [id number] [place] [address]- 0595 Apr, [facility] [place] [facility] [address] [id number] [place] [address]- 1433 Apr, [facility] [place] [facility] [address] [id number] [place] [address]- 4829 Mar, [facility] [place] [facility] [address] [id number] [place] [address]- 2792 Mar, [facility] [place] [facility] [address] [id number] [place] [address]- 3363 Mar, [facility] [place] [facility] [address] [id number] [place] [address]- 7932 Mar, [facility] [place] [facility] [address] [id number] [place] [address]- 7427 Feb, [facility] [place] [facility] [address] [id number] [place] [address]- 6115 Feb, [facility] [place] [facility] [address] [id number] [place] [address]- 5561 Jan, [facility] [place] [facility] [address] [id number] [place] [address]- 9957 Jan, [facility] [place] [facility] [address] [id number] [place] [address]- 5631 Dec, [facility] [address] [id number] [place] [address]- 5930 Dec, [facility] [address] [id number] [place] [address]- 8440 Dec, [facility] [address] [id number] [place] [address]- 4525 Dec, [facility] [address] [id number] [place] [address]- 3584 Nov, [facility] [address] [id number] [place] [address]- 0508 Sep, [facility] [address] [id number] [place] [address]- 6360 Sep, [facility] [address] [id number] [place] [address]- 6825 Aug, [facility] [address] [id number] [place] [address]- 0757 July, [facility] [address] [id number] [place] [address]- 4565 Jun, [facility] [address] [id number] [place] [address]- 6721 May, [facility] [place] [facility] [address] [id number] [place] [address]- 4771 May, [facility] [place] [facility] [address] [id number] [place] [address]- 7651 May, [facility] [place] [facility] [address] [id number] [place] [address]- 3968 May, [facility] [place] [facility] [address] [id number] [place] [address]- 0946 May, [facility] [place] [facility] [address] [id number] [place] [address]- 2546 05 Feb, 2012 [facility] [place] [facility] [address] [id number] [place] [address]- 6466 05 Feb, 2012 [facility] [place] [facility] [address] [id number] [place] [address]- 8184 Jan, [facility] [place] [facility] [address] [id number] [place] [address]- 3176 Jan, [facility] [place] [facility] [address] [id number] [place] [address]- 3872 Jan, [facility] [place] [facility] [address] [id number] [place] [address]- 6130 Jan, [facility] [place] [facility] [address] [id number] [place] [address]- 3689 Jan, [facility] [place] [facility] [address] [id number] [place] [address]- 3480 Jan, [facility] [place] [facility] [address] [id number] [place] [address]- 9118 18 Dec, 2011 [facility] [place] [facility] [address] [id number] [place] 2298 18 Dec, 2011 [facility] [place] [facility] [address] [id number] [place] [address]- 6666 18 Dec, 2011 [facility] [place] [facility] [address] [id number] [address]- 3987 18 Dec, 2011 [facility] [place] [facility] [address] [id number] [address]- 2577 10 Dec, 2011 [facility] [place] [facility] [address] [id number] [place] [address]- 7407 26 Nov, 2011 [facility] [place] [facility] [address] [id number] [place] [address]- 9737 18 Sep2011 [facility] [place] [facility] [address] [id number] [place] [address]- 8644 13 Sep2011 [facility] [place] [facility] [address] [id number] [place] [address]- 2546 Sep, [facility] [address] [id number] [place] [address]- 4410 Aug, [facility] [place] [facility] [address] [id number] [place] [address]- 2546 Aug, [facility] [address] [id number] [place] [address]- 7926 May, [facility] [place] [facility] [address] [id number] [place] [address]- 3476 Apr, [facility] [place] [facility] [address] [id number] [place] [address]- 8556 Mar, [facility] [place] [facility] [address] [id number] [place] [address]- 9846 Mar, [facility] [address] [id number] [place] [address]- 4157 Dec, [facility] [address] [id number] [place] [address]- 3450 Sep, [facility] [place] [facility] [address] [id number] [place] [address]- 6391 Feb, [facility] [address] [id number] [place] [address]- 1984 Feb, [facility] [place] [facility] [address] [id number] [place] [address] 254 Jan, [facility] [place] [facility] [address] [id number] [place] [address] 2546 08 Jan, 2010 [facility] [place] [facility] [address] [id number] [place] [address]- 0566 10 Nov, 2009 [facility] [place] [facility] [address] [id number] [place] [address]- 2546 15 Feb, 2009 [facility] [place] [facility] [address] [id number] [place] [address] 2544 Feb, [facility] [id number] [address]- 2546 Jan, [facility] [address] [address]- 2546 Jan, [facility] [id number] [address]- 2546 Dec, [facility] [address] [address]- 2546 Dec, [facility] [id number] [address]- 0436 Nov, [facility] [address] [address]- 2546 Oct, [facility] [address] [address]- 2546 Sep, [facility] [id number] [address] 2546 Aug, IMMUNIZATIONS No Known Immunizations SOCIAL HISTORY Never Assessed REASON FOR VISIT 1 yr f/u DM Ed PLAN OF CARE VITAL SIGNS MEDICATIONS Unknown Medications RESULTS No Results PROCEDURES No Known procedures INSTRUCTIONS MEDICATIONS ADMINISTERED No Known Medications MEDICAL (GENERAL) HISTORY Type Description Date Medical History hypertension Medical History type II diabetes Medical History hyperlipidemia Medical History chronic pain-knees Surgical History tonsillectomy 1957 Surgical History carderacs removed from both eyes 2018 Surgical History Left knee replacement 2018 Surgical History Right knee replacement 2018 Hospitalization History surgeries
--- OUTSIDE RECORDS SUMMARY | 2018-04-18 11:30 | XMS REPORT ---
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 Active 761281035 Problem Type 2 diabetes mellitus with hyperglycemia E11.65 Active 458924823 Problem Type 2 diabetes mellitus without complications E11.9 Active 055815972 Problem Controlled type 2 diabetes mellitus without complication, without long -term current use of insulin E11.9 Active [id number] ALLERGIES No Information ENCOUNTERS Encounter Location Date Diagnosis [place] [id number] [place] [address] 68[address]- 1626 Oct, Other elevated white blood cell (WBC) count D72.828 and Type 2 diabetes mellitus with other circulatory complications E11.59 [facility] [address], [place] [address] 69[address] Sep, [facility] [address] [place] [id number] [place] [address] 73450- 6604 Sep, Diabetes type 2, controlled E11.9 [facility] [id number] [place] [address] 14515- 6504 Aug, Type 2 diabetes mellitus with hyperglycemia E11.65 [facility] [address], [place] [address] 8[address] July, [facility] [address] [place] [id number] [place] [address] [place] [address] 8776 Jun, Diabetes type 2, controlled E11.9 ; Other chronic pain G89.29 ; Pain in left knee M25.562 and Pain in right knee M25.561 [place] [address], [place] [address] May, [place] [address] [place] [address] 70126- 4446 Feb, Other viral agents as the cause of diseases classified elsewhere B97.89 and Acute upper respiratory infection, unspecified J06.9 [place] [address] [place] [address] 85224- 8646 Feb, [place] [address] [place] [id number] [place] [address] 85962- 3436 Feb, Type 2 diabetes mellitus without complications E11.9 and nursing home current use of insulin Z79.4 [place] [id number] [place] [address] 80897- 8545 Dec, [place] [id number] [place] [address] 86630- 4336 Dec, [place] [id number] [place] [address] 57799- 6283 Nov, Type 2 diabetes mellitus without complications E11.9 and 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 [place] [address], [place] [address]- 0558 Nov, [place] [address], [place] [address] 5337 Nov, Controlled type 2 diabetes mellitus without complication, without long-term current use of insulin E11.9 [place] [address], [place] [address] 4439 Nov, Controlled type 2 diabetes mellitus without complication, without long-term current use of insulin E11.9 [place] [address] [place] [address] 94731- 9053 Nov, Type 2 diabetes mellitus with other circulatory complications E11.59 [facility] [address], [place] [address] 0396 Oct, Type 2 diabetes mellitus with hyperglycemia E11.65 [facility] [address], [place] [address] 8596 Oct, [facility] [address] 7[address] Oct, [facility] [address] 3184 Oct, Type 2 diabetes mellitus without complications E11.9 [facility] [address], [place] [address]- 9796 Sep, Type 2 diabetes mellitus with hyperglycemia E11.65 [facility] [address], [place] [address]- 9100 Sep, Type 2 diabetes mellitus with other circulatory complications E11.59 [facility] [address], [place] [address]- 9220 Aug, [facility] [address], [place] [address]- 7974 July, Controlled type 2 diabetes mellitus without complication, without long-term current use of insulin E11.9 [facility] [address], [place] [address]- 9774 May, [facility] [address] [address] 6274 Feb, Controlled type 2 diabetes mellitus without complication, without long-term current use of insulin E11.9 [facility] [address] 1319 Jan, Controlled type 2 diabetes mellitus without complication, without long-term current use of insulin E11.9 [facility] [address] [place] [id number], [place] [address]- 8586 Jan, Type 2 diabetes mellitus with hyperglycemia E11.65 and 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 [facility] [address], [place] [address]- 5992 16 Nov, 2015 Diabetes type 2, controlled E11.9 [facility] [address] [place] [id number] [place] [address] 184773- 6976 Aug, Type 2 diabetes mellitus with other circulatory complications E11.59 and Hypertension, essential I10 [facility] [address] [place] [id number] [place] [address] 94632- 0881 July, Type 2 diabetes mellitus with hyperglycemia E11.65 and Hypertension, benign I10 [place] [address] [place] [id number] [place] [address] 91001- 7414 May, Type 2 diabetes mellitus with other circulatory complications E11.59 [place] [address] [place] [id number] [place] [address] 71743- 5860 Apr, Diabetes type 2, controlled E11.9 [facility] [address] [place] [address] [id number] [address]- 3982 Jan, Type 2 diabetes mellitus with other circulatory complications E11.59 [place] [address] [place] [id number] [address]- 6152 Dec, Type 2 diabetes mellitus with other circulatory complications E11.59 [place] [address], [place] [address]- 6981 Aug, Diabetes 250.00 [facility] [address] [place] [id number] [place] [address] 89059- 7280 July, Diabetes 250.00 [facility] [address], [place] [address]- 9476 Jun, [place] [address] [place] [id number] [place] [address] 22617- 3842 Jun, [facility] [address], [place] [address]- 3876 Jun, [facility] [address] [place] [address]- 4204 14 Jun, 2014 [facility] [place] [facility] [address] [id number] [place] [address]- 9638 Jun, [facility] [place] [facility] [address] [id number] [place] [address]- 1363 May, [facility] [place] [facility] [address] [id number] [place] [address]- 8188 May, [facility] [place] [facility] [address] [id number] [place] [address]- 0032 Apr, [facility] [place] [facility] [address] [id number] [place] [address]- 2670 Apr, [facility] [place] [facility] [address] [id number] [place] [address]- 4396 Mar, [facility] [place] [facility] [address] [id number] [place] [address]- 7225 Mar, [facility] [place] [facility] [address] [id number] [place] [address]- 7592 Feb, [facility] [place] [facility] [address] [id number] [place] [address]- 4267 Feb, [facility] [place] [facility] [address] [id number] [place] [address]- 4740 Feb, [facility] [place] [facility] [address] [id number] [place] [address]- 9895 Feb, [facility] [place] [facility] [address] [id number] [place] [address]64 Feb, [facility] [place] [facility] [address] [id number] [place] [address]- 7425 Feb, [facility] [place] [facility] [address] [id number] [place] [address]- 4788 Dec, [facility] [place] [facility] [address] [id number] [place] [address]- 3904 Dec, [facility] [place] [facility] [address] [id number] [place] [address]- 8125 29 Nov, 2013 [facility] [place] [facility] [address] [id number] [place] [address]- 2339 29 Nov, 2013 [facility] [place] [facility] [address] [id number] [place] [address]- 0930 29 Nov, 2013 [facility] [place] [facility] [address] [id number] [place] [address]- 8090 29 Nov, 2013 [facility] [place] [facility] [address] [id number] [place] [address]- 7455 Nov, [facility] [place] [facility] [address] [id number] [place] [address]- 3249 Nov, [facility] [place] [facility] [address] [id number] [place] [address]- 4802 Nov, [facility] [place] [facility] [address] [id number] [place] [address]- 6544 Nov, [facility] [place] [facility] [address] [id number] [place] [address]- 1276 Aug, [facility] [place] [facility] [address] [id number] [place] [address]- 2934 Aug, [facility] [place] [facility] [address] [id number], [place] [address]- 6895 Aug, [facility] [place] [facility] [address] [id number], [place] [address]- 0209 Aug, [facility] [place] [facility] [address] [id number] [place] [address]- 9660 July, [facility] [place] [facility] [address] [id number] [place] [address]- 5991 July, [facility] [place] [facility] [address] [id number] [place] [address]- 8942 Jun, [facility] [place] [facility] [address] [id number] [place] [address]- 6379 15 Jun, 2013 [facility] [place] [facility] [address] [id number] [place] [address]- 7056 15 Jun, 2013 [facility] [place] [facility] [address] [id number] [place] [address]- 1142 15 Jun, 2013 [facility] [place] [facility] [address] [id number] [place] [address]- 5490 May, [facility] [place] [facility] [address] [id number] [place] [address]- 1495 May, [facility] [place] [facility] [address] [id number] [place] [address]- 5821 Apr, [facility] [place] [facility] [address] [id number] [place] [address]- 5407 Apr, [facility] [place] [facility] [address] [id number] [place] [address]- 2793 Mar, [facility] [place] [facility] [address] [id number] [place] [address]- 0705 Mar, [facility] [place] [facility] [address] [id number] [place] [address]- 9528 Mar, [facility] [place] [facility] [address] [id number] [place] [address]- 2786 Mar, [facility] [place] [facility] [address] [id number] [place] [address]- 1788 Feb, [facility] [place] [facility] [address] [id number] [place] [address]- 2002 Feb, [facility] [place] [facility] [address] [id number] [place] [address]- 1691 Jan, [facility] [place] [facility] [address] [id number] [place] [address]- 0808 Jan, [facility] [place] [facility] [address] [id number] [place] [address]- 9740 Dec, [facility] [place] [facility] [address] [id number] [place] [address]- 6832 Dec, [facility] [address] [id number] [place] [address]- 6500 Dec, [facility] [address] [id number] [place] [address]- 5015 Dec, [facility] [address] [id number] [place] [address]- 5822 Nov, [facility] [address] [id number] [place] [address]- 3093 Sep, [facility] [address] [id number] [place] [address]- 1520 Sep, [facility] [address] [id number] [place] [address]- 6376 Aug, [facility] [address] [id number] [place] [address]- 3118 July, [facility] [address] [id number] [place] [address]- 8630 Jun, [facility] [address] [id number] [place] [address]- 0988 May, [facility] [address] [id number] [place] [address]- 5181 May, [facility] [address] [id number] [place] [address]- 5516 May, [facility] [address] [id number] [place] [address]- 4270 May, [facility] [place] [facility] [address] [id number] [place] [address]- 1965 May, [facility] [address] [id number] [place] [address]- 8887 Feb, [facility] [address] [id number] [place] [address]- 9796 Feb, [facility] [place] [facility] [address] [id number] [place] [address]- 1469 Jan, [facility] [place] [facility] [address] [id number] [place] [address]- 7986 Jan, [facility] [place] [facility] [address] [id number] [place] [address]- 1661 Jan, [facility] [place] [facility] [address] [id number] [place] [address]- 3324 Jan, [facility] [place] [facility] [address] [id number] [place] 1721 Jan, [facility] [place] [facility] [address] [id number] [place] 8239 Jan, [facility] [place] [facility] [address] [id number] [place] [address]- 7831 Dec, [facility] [place] [facility] [address] [id number] [place] [address]- 9310 Dec, [facility] [place] [facility] [address] [id number] [place] [address]- 5568 Dec, [facility] [place] [facility] [address] [id number] [place] [address]- 5739 18 Dec, 2011 [facility] [place] [facility] [address] [id number], [place] [address]- 1942 10 Dec, 2011 [facility] [place] [facility] [address] [id number], [place] [address]- 9354 26 Nov, 2011 [facility] [place] [facility] [address] [id number] [place]- 5975 18 Nov, 2011 [facility] [place] [facility] [address] [id number] [place] 1223 13 Nov, 2011 [facility] [place] [facility] [address] [id number] [place] [address]- 5621 Sep, [facility] [place] [facility] [address] [id number] [place] [address]- 5612 Aug, [facility] [address] [id number] [place] [address]- 2209 Aug, [facility] [place] [facility] [address] [id number] [place] [address]- 0656 May, [facility] [address] [id number] [place] [address]- 0887 Apr, [facility] [place] [facility] [address] [id number] [place] [address]- 9592 Mar, [facility] [address] [id number] [place] [address]- 9157 Mar, [facility] [address] [id number] [place] [address]- 4387 Dec, [facility] [place] [facility] [address] [id number] [place] [address]- 1405 Sep, [facility] [address] [id number] [place] [address]- 2655 Feb, [facility] [place] [facility] [address] [id number] [place] [address]- 1661 Feb, [facility] [address] [id number] [place] [address]- 2142 11 Jan, 2010 [facility] [place] [facility] [address] [id number] [place] [address] 2547 08 Jan, 2010 [facility] [place] [facility] [address] [id number] [place] [address] 2540 10 Nov, 2009 [facility] [place] [facility] [address] [id number] [place] [address] 2545 15 Feb, 2009 [facility] [place] [facility] [address] [id number] [place] [address]- 2546 15 Feb, 2009 [facility] [place] [facility] [address] [id number] [place] [address] 2547 Jan, [facility] [id number], [place] [address]- 2546 Jan, [facility] [address] [facility] [id number], [place] [address]- 2546 Dec, [facility] [address] [facility] [id number], [place] [address]- 2546 Dec, [facility] [address], [place] [address]- 2546 Nov, [facility] [id number], [place] [address]- 0916 Oct, [facility] [id number], [place] [address]- 6206 Sep, [facility] [id number], [place] [address]- 4276 Aug, IMMUNIZATIONS No Known Immunizations SOCIAL HISTORY Never Assessed REASON FOR VISIT 6 mo DM ed f/u PLAN OF CARE VITAL SIGNS MEDICATIONS No [...]
--- OUTSIDE RECORDS SUMMARY | 2018-04-18 11:30 | XMS REPORT ---
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 736821610 Problem Type 2 diabetes mellitus with hyperglycemia E11.65 Active 394313754 Problem Type 2 diabetes mellitus without complications E11.9 Active 608560433 Problem Controlled type 2 diabetes mellitus without complication, without long -term current use of insulin E11.9 Active [id number] ALLERGIES No Information ENCOUNTERS Encounter Location Date Diagnosis [place] [id number] [place] [address]- 2773 Oct, Other elevated white blood cell (WBC) count D72.828 and Type 2 diabetes mellitus with other circulatory complications E11.59 [facility] [address] [address] Sep, [facility] [address] [place] [id number] [place] [address] 6[address]60- 0256 Sep, Diabetes type 2, controlled E11.9 [facility] [id number] [place] [address] 89061- 6774 Aug, Type 2 diabetes mellitus with hyperglycemia E11.65 [facility] [address] [address] July, [facility] [address] [place] [address] [id number] [place] [address] [place] [address] Jun, Diabetes type 2, controlled E11.9 ; Other chronic pain G89.29 ; Pain in left knee M25.562 and Pain in right knee M25.561 [place] [address] [address] May, [place] [id number] [place] [address] 33203- 3824 Feb, Other viral agents as the cause of diseases classified elsewhere B97.89 and Acute upper respiratory infection, unspecified J06.9 [place] [id number] [place] [address] 38520- 6786 Feb, [place] [address] [place] [id number] [place] [address] 63801- 3209 Feb, Type 2 diabetes mellitus without complications E11.9 and [facility] current use of insulin Z79.4 [place] [id number] [place] [address] 72449- 9840 Dec, [place] [id number] [place] [address] 24429- 3366 Dec, [place] [id number] [place] [address] 32210- 2489 Nov, Type 2 diabetes mellitus without complications E11.9 and 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 [place] [address] [address] 6[address] Nov, [place] [address] [address] 13[address] Nov, Controlled type 2 diabetes mellitus without complication, without long-term current use of insulin E11.9 [place] [address] [address] 2625 Nov, Controlled type 2 diabetes mellitus without complication, without long-term current use of insulin E11.9 [place] [address] [place] [address] 85447- 6316 Nov, Type 2 diabetes mellitus with other circulatory complications E11.59 [facility] [address] [address] 2086 Oct, Type 2 diabetes mellitus with hyperglycemia E11.65 [facility] [address] [address] 9516 Oct, [facility] [address] 9[address] Oct, [facility] [address] 2521 Oct, Type 2 diabetes mellitus without complications E11.9 [facility] [address] [address] 4336 Sep, Type 2 diabetes mellitus with hyperglycemia E11.65 [facility] [address] [address]- 2573 Sep, Type 2 diabetes mellitus with other circulatory complications E11.59 [facility] [address], [place] [address]- 5416 Aug, [facility] [address] [address] 0789 July, Controlled type 2 diabetes mellitus without complication, without long-term current use of insulin E11.9 [facility] [address] [address]- 1406 May, [facility] [address] [address] 6251 Feb, Controlled type 2 diabetes mellitus without complication, without long-term current use of insulin E11.9 [facility] [address] 4795 Jan, Controlled type 2 diabetes mellitus without complication, without long-term current use of insulin E11.9 [facility] [address] [place] [id number] [address] 9826 Jan, Type 2 diabetes mellitus with hyperglycemia E11.65 and 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 [facility] [address] [address]- 7107 16 Nov, 2015 Diabetes type 2, controlled E11.9 [facility] [address] [place] [id number] [place] [address] 114139- 2996 Aug, Type 2 diabetes mellitus with other circulatory complications E11.59 and Hypertension, essential I10 [facility] [address] [place] [id number] [place] [address] 71648- 9703 July, Type 2 diabetes mellitus with hyperglycemia E11.65 and Hypertension, benign I10 [place] [address] [place] [id number] [place] [address] 11624- 8327 May, Type 2 diabetes mellitus with other circulatory complications E11.59 [place] [address] [place] [id number] [place] [address] 07936- 5363 Apr, Diabetes type 2, controlled E11.9 [facility] [address] [place] [id number] [address]- 0367 Jan, Type 2 diabetes mellitus with other circulatory complications E11.59 [place] [address] [place] [id number] [address]- 0603 Dec, Type 2 diabetes mellitus with other circulatory complications E11.59 [place] [address] [address]- 7355 Aug, Diabetes 250.00 [facility] [address] [place] [id number] [place] [address] 05748- 9848 July, Diabetes 250.00 [facility] [address] [address]- 2171 Jun, [place] [address] [place] [id number] [place] [address] 29650- 6068 Jun, [facility] [address] [address]- 4983 Jun, [facility] [address] [place] [address]- 9431 14 Jun, 2014 [facility] [place] [facility] [address] [id number] [place] [address]- 7774 Jun, [facility] [place] [facility] [address] [id number] [place] [address]- 5554 May, [facility] [place] [facility] [address] [id number] [place] [address]- 3360 May, [facility] [place] [facility] [address] [id number] [place] [address]- 3762 Apr, [facility] [place] [facility] [address] [id number] [place] [address]- 8126 Apr, [facility] [place] [facility] [address] [id number] [place] [address]- 5750 Mar, [facility] [place] [facility] [address] [id number] [place] [address]- 7089 Mar, [facility] [place] [facility] [address] [id number] [place] [address]- 1770 Feb, [facility] [place] [facility] [address] [id number] [place] [address]- 7460 Feb, [facility] [place] [facility] [address] [id number] [place] [address]- 6235 Feb, [facility] [place] [facility] [address] [id number] [place] [address]- 9575 Feb, [facility] [place] [facility] [address] [id number] [place] [address] Feb, [facility] [place] [facility] [address] [id number] [place] [address]- 1590 Feb, [facility] [place] [facility] [address] [id number] [place] [address]- 2947 Dec, [facility] [place] [facility] [address] [id number] [place] [address]- 5728 Dec, [facility] [place] [facility] [address] [id number] [place] [address]- 8264 29 Nov, 2013 [facility] [place] [facility] [address] [id number] [place] [address]- 6259 29 Nov, 2013 [facility] [place] [facility] [address] [id number] [place] [address]- 4590 29 Nov, 2013 [facility] [place] [facility] [address] [id number] [place] [address]- 7943 29 Nov, 2013 [facility] [place] [facility] [address] [id number] [place] [address]- 5707 Nov, [facility] [place] [facility] [address] [id number] [place] [address]- 3123 Nov, [facility] [place] [facility] [address] [id number] [place] [address]- 8876 Nov, [facility] [place] [facility] [address] [id number] [place] [address]- 4473 Nov, [facility] [place] [facility] [address] [id number] [place] [address]- 6642 Aug, [facility] [place] [facility] [address] [id number] [place] [address]- 5179 Aug, [facility] [place] [facility] [address] [id number] [address]- 3360 Aug, [facility] [place] [facility] [address] [id number] [address]- 2551 Aug, [facility] [place] [facility] [address] [id number] [place] [address]- 1165 July, [facility] [place] [facility] [address] [id number] [place] [address]- 4067 July, [facility] [place] [facility] [address] [id number] [place] [address]- 2332 Jun, [facility] [place] [facility] [address] [id number] [place] [address]- 2431 15 Jun, 2013 [facility] [place] [facility] [address] [id number] [place] [address]- 6285 15 Jun, 2013 [facility] [place] [facility] [address] [id number] [place] [address]- 3604 15 Jun, 2013 [facility] [place] [facility] [address] [id number] [place] [address]- 5339 May, [facility] [place] [facility] [address] [id number] [place] [address]- 8665 May, [facility] [place] [facility] [address] [id number] [place] [address]- 5479 Apr, [facility] [place] [facility] [address] [id number] [place] [address]- 6440 Apr, [facility] [place] [facility] [address] [id number] [place] [address]- 1873 Mar, [facility] [place] [facility] [address] [id number] [place] [address]- 5112 Mar, [facility] [place] [facility] [address] [id number] [place] [address]- 1545 Mar, [facility] [place] [facility] [address] [id number] [place] [address]- 8258 Mar, [facility] [place] [facility] [address] [id number] [place] [address]- 7306 Feb, [facility] [place] [facility] [address] [id number] [place] [address]- 1329 Feb, [facility] [place] [facility] [address] [id number] [place] [address]- 3223 Jan, [facility] [place] [facility] [address] [id number] [place] [address]- 8018 Jan, [facility] [place] [facility] [address] [id number] [place] [address]- 7103 Dec, [facility] [place] [facility] [address] [id number] [place] [address]- 9941 Dec, [facility] [address] [id number] [place] [address]- 5017 Dec, [facility] [address] [id number] [place] [address]- 7795 Dec, [facility] [address] [id number] [place] [address]- 5447 Nov, [facility] [address] [id number] [place] [address]- 9345 Sep, [facility] [address] [id number] [place] [address]- 3986 Sep, [facility] [address] [id number] [place] [address]- 2812 Aug, [facility] [address] [id number] [place] [address]- 9188 July, [facility] [address] [id number] [place] [address]- 4154 Jun, [facility] [address] [id number] [place] [address]- 6501 May, [facility] [address] [id number] [place] [address]- 7038 May, [facility] [address] [id number] [place] [address]- 9249 May, [facility] [address] [id number] [place] [address]- 0629 May, [facility] [place] [facility] [address] [id number] [place] [address]- 3704 May, [facility] [address] [id number] [place] [address]- 1089 Feb, [facility] [address] [id number] [place] [address]- 0786 Feb, [facility] [place] [facility] [address] [id number] [place] [address]- 1168 Jan, [facility] [place] [facility] [address] [id number] [place] [address]- 5726 Jan, [facility] [place] [facility] [address] [id number] [place] [address]- 0865 Jan, [facility] [place] [facility] [address] [id number] [place] [address]- 1027 Jan, [facility] [place] [facility] [address] [id number] [place] 6994 Jan, [facility] [place] [facility] [address] [id number] [place] 9614 Jan, [facility] [place] [facility] [address] [id number] [place] [address]- 6587 Dec, [facility] [place] [facility] [address] [id number] [place] [address]- 6779 Dec, [facility] [place] [facility] [address] [id number] [place] [address]- 0546 Dec, [facility] [place] [facility] [address] [id number] [place] [address]- 1564 18 Dec, 2011 [facility] [place] [facility] [address] [id number], [place] [address]- 1277 10 Dec, 2011 [facility] [place] [facility] [address] [id number], [place] [address]- 7742 26 Nov, 2011 [facility] [place] [facility] [address] [id number] [place] [address]31 18 Nov, 2011 [facility] [place] [facility] [address] [id number] [place] 6454 13 Nov, 2011 [facility] [place] [facility] [address] [id number] [place] [address]- 4515 Sep, [facility] [place] [facility] [address] [id number] [place] [address]- 9437 Aug, [facility] [address] [id number] [place] [address]- 9202 Aug, [facility] [place] [facility] [address] [id number] [place] [address]- 4106 May, [facility] [address] [id number] [place] [address]- 0344 Apr, [facility] [place] [facility] [address] [id number] [place] [address]- 1461 Mar, [facility] [address] [id number] [place] [address]- 0570 Mar, [facility] [address] [id number] [place] [address]- 9384 Dec, [facility] [place] [facility] [address] [id number] [place] [address]- 8961 Sep, [facility] [address] [id number] [place] [address]- 0578 Feb, [facility] [place] [facility] [address] [id number] [place] [address]- 8669 Feb, [facility] [address] [id number] [place] [address]- 9385 11 Jan, 2010 [facility] [place] [facility] [address] [id number] [place] [address] 254 08 Jan, 2010 [facility] [place] [facility] [address] [id number] [place] [address] 2543 10 Nov, 2009 [facility] [place] [facility] [address] [id number] [place] [address] 2540 15 Feb, 2009 [facility] [place] [facility] [address] [id number] [place] [address]- 2546 15 Feb, 2009 [facility] [place] [facility] [address] [id number] [place] [address]- 1799 Jan, [facility] [address] [facility] [id number] 9661 Jan, [facility] [address] [facility] [id number][place] [address]- 2117 Dec, [facility] [address] [facility] [id number], [place] [address]- 2050 Dec, [facility] [id number] [address]- 2000 Nov, [facility] [address] [facility] [id number], [place] [address]- 5804 Oct, [facility] [id number] [address]- 6515 Sep, [facility] [address] [id number] [address]- 9296 Aug, IMMUNIZATIONS No Known Immunizations SOCIAL HISTORY Never Assessed REASON FOR VISIT TCM call/med rec, TCM - Phone Call PLAN OF CARE VITAL SIGNS MEDICATIONS Medication Instructions Dosage Frequency Start Date End Date Duration Status Percocet 5-325 MG Orally every 4 hrs 1 tablet as needed 4h July, Active Amaryl 4 MG Orally 2 times per day 1 tablet 90 Active Fish Oil 1000 MG Orally Once a day 1 capsule 24h Active Metformin HCl 1000 mg 1 tablet with meals 12h Active Lisinopril-Hydrochlorothiazide 20-12.5MG Orally 2 times a day 1 tablet 12h Active Pen [place] 32G X 4 MM subcutaneously 4 times a day as directed with insulin 6h Sep, Active Levemir FlexTouch 100 UNIT/ML DX E11.59 2 times a day 48 units 12h Oct, Active Lovastatin 20MG TAKE ONE TABLET BY MOUTH ONCE DAILY WITH A MEAL Active Metoprolol Tartrate 50MG TAKE ONE TABLET BY MOUTH TWICE DAILY WITH MEALS 90 Active Aspirin 81 MG Orally Once a day 1 tablet 24h Active NovoLog Flexpen 100 UNIT/ML Subcutaneous before meals inject 15 units Sep, Active Glimepiride 4MG TAKE ONE TABLET BY MOUTH TWICE DAILY Active Amlodipine Besylate 5 mg 1 tablet 24h 90 Active RESULTS No Results PROCEDURES No [...]
--- OUTSIDE RECORDS SUMMARY | 2018-04-18 11:30 | XMS REPORT ---
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 Active 343530093 Problem Type 2 diabetes mellitus with hyperglycemia E11.65 Active 336936069 Problem Type 2 diabetes mellitus without complications E11.9 Active 815836325 Problem Controlled type 2 diabetes mellitus without complication, without long -term current use of insulin E11.9 Active 934982402 ALLERGIES No Known Allergies ENCOUNTERS Encounter Location Date Diagnosis [place] [id number] [place] [address] 35386- 4602 Oct, Other elevated white blood cell (WBC) count D72.828 and Type 2 diabetes mellitus with other circulatory complications E11.59 [facility] [address] [address] Sep, [facility] [address] [place] [id number] [place] [address] 70664- 5111 Sep, Diabetes type 2, controlled E11.9 [facility] [address] [place] [address] [id number] [place] [address] 12340- 6754 Aug, Type 2 diabetes mellitus with hyperglycemia E11.65 [facility] [id number] [place] [address] 76664- 8213 July, [facility] [address] [place] [address]- 5816 Jun, Diabetes type 2, controlled E11.9 ; Other chronic pain G89.29 ; Pain in left knee M25.562 and Pain in right knee M25.561 [place] [address] [place] [id number] [place] [address] 07976- 2421 May, [place] [address] [place] [id number] [place] [address] 42136- 6906 Feb, Other viral agents as the cause of diseases classified elsewhere B97.89 and Acute upper respiratory infection, unspecified J06.9 [place] [address] [place] [id number] [place] [address] 85234- 8746 Feb, [place] [address] [place] [id number] [place] [address] 18600- 3685 Feb, Type 2 diabetes mellitus without complications E11.9 and 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 [place] [id number] [place] [address] 14922- 6547 Dec, [place] [id number] [place] [address] 91847- 2703 Dec, [place] [id number] [place] [address] 62614- 7353 Nov, Type 2 diabetes mellitus without complications E11.9 and 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 [place] [address] [address] 2366 Nov, [place] [id number] [place] [address] 44844- 8911 Nov, Controlled type 2 diabetes mellitus without complication, without long-term current use of insulin E11.9 [place] [id number] [place] [address] 29814- 2549 Nov, Controlled type 2 diabetes mellitus without complication, without long-term current use of insulin E11.9 [place] [id number] [place] [address] 43909- 1311 Nov, Type 2 diabetes mellitus with other circulatory complications E11.59 [facility] [id number] 5716 Oct, Type 2 diabetes mellitus with hyperglycemia E11.65 [facility] [address] 5706 Oct, [facility] [id number] [place] [address] 31305- 3864 Oct, [facility] [id number] 3994 Oct, Type 2 diabetes mellitus without complications E11.9 [facility] [id number] [place] [address] 08337- 2846 Sep, Type 2 diabetes mellitus with hyperglycemia E11.65 [facility] [address] [address]- 7915 Sep, Type 2 diabetes mellitus with other circulatory complications E11.59 [facility] [id number], [place] [address]- 9383 Aug, [facility] [id number] 6595 July, Controlled type 2 diabetes mellitus without complication, without long-term current use of insulin E11.9 [facility] [address], [place] [address]- 8341 May, [facility] [id number] [address] 5761 Feb, Controlled type 2 diabetes mellitus without complication, without long-term current use of insulin E11.9 [facility] [address] 4204 Jan, Controlled type 2 diabetes mellitus without complication, without long-term current use of insulin E11.9 [facility] [address] [place] [id number] 9116 Jan, Type 2 diabetes mellitus with hyperglycemia E11.65 and nursing home current use of insulin Z79.4 [facility] [address], [place] [address]- 8171 16 Nov, 2015 Diabetes type 2, controlled E11.9 [facility] [id number], [place] [address]- 4220 Aug, Type 2 diabetes mellitus with other circulatory complications E11.59 and Hypertension, essential I10 [facility] [address] [place] [id number] [place] [address] 95264- 2868 July, Type 2 diabetes mellitus with hyperglycemia E11.65 and Hypertension, benign I10 [place] [address] [place] [id number] [place] [address] 48663- 8387 May, Type 2 diabetes mellitus with other circulatory complications E11.59 [place] [address] [place] [id number] [place] [address] 71174- 8782 Apr, Diabetes type 2, controlled E11.9 [facility] [address] [id number] [address]- 6441 Jan, Type 2 diabetes mellitus with other circulatory complications E11.59 [place] [address] [place] [id number] [address]- 1720 Dec, Type 2 diabetes mellitus with other circulatory complications E11.59 [place] [address], [place] [address]- 3388 Aug, Diabetes 250.00 [facility] [address] [place] [id number] [place] [address] 28098- 2163 July, Diabetes 250.00 [place] [address], [place] [address]- 4390 Jun, [place] [address] [place] [id number] [place] [address] [id number]- 9250 Jun, [facility] [id number], [place] [address]- 5751 Jun, [place] [address] [place] [id number] [place] [address]- 9428 14 Jun, 2014 [facility] [place] [facility] [address] [id number] [place] [address]- 3937 13 Jun, 2014 [facility] [place] [facility] [address] [id number] [place] [address]- 2863 May, [facility] [place] [facility] [address] [id number] [place] [address]- 1702 May, [facility] [place] [facility] [address] [id number] [place] [address]- 3616 Apr, [facility] [place] [facility] [address] [id number] [place] [address]- 7210 Apr, [facility] [place] [facility] [address] [id number] [place] [address]- 4920 Mar, [facility] [place] [facility] [address] [id number] [place] [address]- 5447 Mar, [facility] [place] [facility] [address] [id number] [place] [address]- 7414 Feb, [facility] [place] [facility] [address] [id number] [place] [address]- 3910 Feb, [facility] [place] [facility] [address] [id number] [place] [address]- 0936 Feb, [facility] [place] [facility] [address] [id number] [place] [address]- 0393 Feb, [facility] [place] [facility] [address] [id number] [place] [address]- 1566 15 Feb, 2014 [facility] [place] [facility] [address] [id number] [place] 6057 Feb, [facility] [place] [facility] [address] [id number] [place] [address]- 6866 Dec, [facility] [place] [facility] [address] [id number] [place] [address]- 6913 Dec, [facility] [place] [facility] [address] [id number] [place] [address]- 5899 29 Nov, 2013 [facility] [place] [facility] [address] [id number] [place] [address]- 8322 29 Nov, 2013 [facility] [place] [facility] [address] [id number] [place] [address]- 3892 29 Nov, 2013 [facility] [place] [facility] [address] [id number] [place] [address]- 6481 29 Nov, 2013 [facility] [place] [facility] [address] [id number] [place] [address]- 1146 17 Nov, 2013 [facility] [place] [facility] [address] [id number] [place] [address]- 6324 Nov, [facility] [place] [facility] [address] [id number] [place] [address]- 1708 Nov, [facility] [place] [facility] [address] [id number] [place] [address]- 4228 Nov, [facility] [place] [facility] [address] [id number] [place] [address]- 9382 Aug, [facility] [place] [facility] [address] [id number] [place] [address]- 9907 Aug, [facility] [place] [facility] [address] [id number] [address]- 6798 Aug, [facility] [place] [facility] [address] [id number], [place] [address]- 3879 Aug, [facility] [place] [facility] [address] [id number] [place] [address]- 7023 July, [facility] [place] [facility] [address] [id number] [place] [address]- 6916 July, [facility] [place] [facility] [address] [id number] [place] [address]- 8939 Jun, [facility] [place] [facility] [address] [id number] [place] [address]- 4627 15 Jun, 2013 [facility] [place] [facility] [address] [id number] [place] [address]- 5164 15 Jun, 2013 [facility] [place] [facility] [address] [id number] [place] [address]- 1914 15 Jun, 2013 [facility] [place] [facility] [address] [id number] [place] [address]- 8806 May, [facility] [place] [facility] [address] [id number] [place] [address]- 1853 May, [facility] [place] [facility] [address] [id number] [place] [address]- 2745 Apr, [facility] [place] [facility] [address] [id number] [place] [address]- 9415 Apr, [facility] [place] [facility] [address] [id number] [place] [address]- 0860 Mar, [facility] [place] [facility] [address] [id number] [place] [address]- 3213 Mar, [facility] [place] [facility] [address] [id number] [place] [address]- 4737 Mar, [facility] [place] [facility] [address] [id number] [place] [address]- 6023 Mar, [facility] [place] [facility] [address] [id number] [place] [address]- 5895 Feb, [facility] [place] [facility] [address] [id number] [place] [address]- 8026 Feb, [facility] [place] [facility] [address] [id number] [place] [address]- 2498 Jan, [facility] [place] [facility] [address] [id number] [place] [address]- 6977 Jan, [facility] [place] [facility] [address] [id number] [place] [address]- 8332 Dec, [facility] [place] [facility] [address] [id number] [place] [address]- 2683 Dec, [facility] [address] [id number] [place] [address]- 7022 Dec, [facility] [address] [id number] [place] [address]- 5483 Dec, [facility] [address] [id number] [place] [address]- 4461 Nov, [facility] [address] [id number] [place] [address]- 0230 Sep, [facility] [address] [id number] [place] [address]- 0743 Sep, [facility] [address] [id number] [place] [address]- 6616 Aug, [facility] [address] [id number] [place] [address]- 2778 July, [facility] [address] [id number] [place] [address]- 2274 Jun, [facility] [address] [id number] [place] [address]- 9666 May, [facility] [address] [id number] [place] [address]- 8403 May, [facility] [address] [id number] [place] [address]- 7859 May, [facility] [address] [id number] [place] [address]- 0124 May, [facility] [place] [facility] [address] [id number] [place] [address]- 3984 May, [facility] [address] [id number] [place] [address]- 1171 Feb, [facility] [address] [id number], [place] [address]- 6449 Feb, [facility] [place] [facility] [address] [id number] [place] [address]- 6891 Jan, [facility] [place] [facility] [address] [id number] [place] [address]- 0105 Jan, [facility] [place] [facility] [address] [id number] [place] [address]- 2761 Jan, [facility] [place] [facility] [address] [id number] [place] [address]- 6329 Jan, [facility] [place] [facility] [address] [id number] [place] [address]- 7717 Jan, [facility] [place] [facility] [address] [id number] [place] [address]- 6847 Jan, [facility] [place] [facility] [address] [facility] [id number] [place] [address]- 3470 Dec, [facility] [place] [facility] [address] [id number] [place] [address]- 7893 Dec, [facility] [place] [facility] [address] [id number] [place] [address]- 7020 Dec, [facility] [place] [facility] [address] [id number] [place] [address]- 7020 18 Dec, 2011 [facility] [place] [facility] [address] [id number], [place] [address]- 5592 10 Dec, 2011 [facility] [place] [facility] [address] [id number], [place] [address]- 6122 26 Nov, 2011 [facility] [place] [facility] [address] [id number] [place] [address]- 7937 18 Nov, 2011 [facility] [place] [facility] [address] [facility] [id number] [place] 0850 13 Nov, 2011 [facility] [place] [facility] [address] [facility] [id number] [place] 6995 Sep, [facility] [place] [facility] [address] [id number] [place] [address]- 1241 11 Aug, 2011 [facility] [address] [id number] [place] [address]- 1654 Aug, [facility] [place] [facility] [address] [id number] [place] [address]- 9366 May, [facility] [address] [id number] [place] [address]- 1803 Apr, [facility] [place] [facility] [address] [id number] [place] [address]- 1145 Mar, [facility] [address] [id number] [place] [address]- 6575 Mar, [facility] [address] [id number] [place] [address]- 0156 Dec, [facility] [address] [id number] [place] [address]- 7686 Sep, [facility] [address] [id number] [place] [address]- 8145 Feb, [facility] [address] [id number] [place] [address]- 1741 Feb, [facility] [address] [id number] [place] [address]- 6269 11 Jan, 2010 [facility] [place] [facility] [address] [id number] [place] [address]- 5537 08 Jan, 2010 [facility] [place] [facility] [address] [id number] [place] [address]- 6093 10 Nov, 2009 [facility] [place] [facility] [address] [id number] [place] [address]- 6340 15 Feb, 2009 [facility] [place] [facility] [address] [id number] [place] [address]- 2546 15 Feb, 2009 [facility] [place] [facility] [address] [id number] [place] [address]- 6560 Jan, [facility] [address] [facility] [id number], [place] [address]- 4751 Jan, [facility] [address], [place] [address]- 8816 Dec, [facility] [id number] [address]- 5130 Dec, [facility] [address], [place] [address]- 4826 Nov, [facility] [id number], [place] [address]- 4413 Oct, [facility] [address], [place] [address]- 4692 Sep, [facility] [address], [place] [address]- 9994 Aug, IMMUNIZATIONS No Known Immunizations SOCIAL HISTORY Never Assessed REASON FOR VISIT Diabetes WB-MA, Left knee pain and swelling PLAN OF CARE Activity Details Follow Up 4 Weeks Reason:dm2 VITAL SIGNS Height 71 in 2017-09-11 Weight 282 lbs 2017-09-11 Temperature 97.8 degrees Fahrenheit 2017-09-11 Heart Rate 80 bpm 2017-09-11 Respiratory Rate 22 2017-09-11 BMI 39.33 kg/m2 2017-09-11 Blood pressure systolic 142 mmHg 2017-09-11 Blood pressure diastolic 76 mmHg 2017-09-11 MEDICATIONS Medication Instructions Dosage Frequency Start Date End Date Duration Status NovoLog Flexpen 100 UNIT/ML Subcutaneous before meals inject 25 units Sep, Active Amlodipine Besylate 5 mg 1 tablet 24h 90 Active Fish Oil 1000 MG Orally Once a day 1 capsule 24h Not-Taking Lovastatin 20MG TAKE ONE TABLET BY MOUTH ONCE DAILY WITH A MEAL Active Pen [place] 32G X 4 MM subcutaneously 4 times a day as directed with insulin 6h 31 Sep, 2016 Active Lisinopril-Hydrochlorothiazide 20-12.5MG TAKE TWO TABLETS BY MOUTH ONCE DAILY Active Levemir FlexTouch 100 UNIT/ML DX E11.59 2 times a day 50 units 12h Oct, Active Metformin HCl 1000 mg 1 tablet with meals 12h Active Percocet 5-325 MG Orally every 6 hrs 1 tablet as needed 6h July, Active Glimepiride 4MG TAKE ONE TABLET BY MOUTH TWICE DAILY Active Amaryl 4 MG Orally 2 times per day 1 tablet 90 Active Aspirin 81 MG Orally Once a day 1 tablet 24h Not-Taking Metoprolol Tartrate 50MG TAKE ONE TABLET BY MOUTH TWICE DAILY WITH MEALS 90 Active RESULTS No Results PROCEDURES Procedure Date Ordered Result Body Site [facility] VISIT ESTABLISHED PATIENT September 11, 2017 INSTRUCTIONS MEDICATIONS ADMINISTERED No Known Medications MEDICAL (GENERAL) HISTORY Type Description Date Medical History hypertension Medical History type II diabetes Medical History hyperlipidemia Medical History chronic pain-knees Surgical History tonsillectomy 1957 Surgical History carderacs removed from both eyes 2017 Surgical History Left knee replacement 2017 Surgical History Right knee replacement 2018 Hospitalization History surgeries
--- OUTSIDE RECORDS SUMMARY | 2018-04-18 11:31 | XMS REPORT ---
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.4 Active 941898329 Problem Type 2 diabetes mellitus with hyperglycemia E11.65 Active 625269833 Problem Type 2 diabetes mellitus without complications E11.9 Active 040417330 Problem Controlled type 2 diabetes mellitus without complication, without long -term current use of insulin E11.9 Active [id number] ALLERGIES No Information ENCOUNTERS Encounter Location Date Diagnosis [place] [id number] [place] [address]- 0722 Oct, Other elevated white blood cell (WBC) count D72.828 and Type 2 diabetes mellitus with other circulatory complications E11.59 [place] [address] [address] Sep, [facility] [address] [place] [id number] [place] [address] 03370- 7777 Sep, Diabetes type 2, controlled E11.9 [facility] [id number] [place] [address] 45337- 3984 Aug, Type 2 diabetes mellitus with hyperglycemia E11.65 [facility] [address], [place] [address] July, [facility] [address] [address] [id number] [place] [address] [place] [address] 1293 Jun, Diabetes type 2, controlled E11.9 ; Other chronic pain G89.29 ; Pain in left knee M25.562 and Pain in right knee M25.561 [place] [address] [address] May, [place] [id number] [place] [address] 68448- 0810 Feb, Other viral agents as the cause of diseases classified elsewhere B97.89 and Acute upper respiratory infection, unspecified J06.9 [place] [id number] [place] [address] 30174- 0646 Feb, [place] [address] [place] [id number] [place] [address] 76866- 1258 Feb, Type 2 diabetes mellitus without complications E11.9 and alf current use of insulin Z79.4 [place] [id number] [place] [address] 25238- 7726 Dec, [place] [id number] [place] [address] 04797- 1869 Dec, [place] [id number] [place] [address] 25602- 6918 Nov, Type 2 diabetes mellitus without complications E11.9 and exterminator termite current use of insulin Z79.4 [place] [address], [place] [address] 0644 Nov, [place] [address], [place] [address] 3774 Nov, Controlled type 2 diabetes mellitus without complication, without long-term current use of insulin E11.9 [place] [address] [address] 5705 Nov, Controlled type 2 diabetes mellitus without complication, without long-term current use of insulin E11.9 [place] [id number] [place] [address] 12958- 0927 Nov, Type 2 diabetes mellitus with other circulatory complications E11.59 [facility] [address], [place] [address] 0996 Oct, Type 2 diabetes mellitus with hyperglycemia E11.65 [facility] [address], [place] [address] 6116 Oct, [facility] [address] [address] Oct, [facility] [address] 8832 Oct, Type 2 diabetes mellitus without complications E11.9 [facility] [address], [place] [address] 1856 Sep, Type 2 diabetes mellitus with hyperglycemia E11.65 [facility] [address], [place] [address] 4460 Sep, Type 2 diabetes mellitus with other circulatory complications E11.59 [facility] [address] [address]- 8982 Aug, [facility] [address] [address] 2572 July, Controlled type 2 diabetes mellitus without complication, without long-term current use of insulin E11.9 [facility] [address] [address]- 0425 May, [facility] [address] [address] 8995 Feb, Controlled type 2 diabetes mellitus without complication, without long-term current use of insulin E11.9 [facility] [address] 8267 Jan, Controlled type 2 diabetes mellitus without complication, without long-term current use of insulin E11.9 [facility] [address] [place] [id number] [address] 2656 Jan, Type 2 diabetes mellitus with hyperglycemia E11.65 and exterminator termite current use of insulin Z79.4 [facility] [address], [place] [address]- 4433 16 Nov, 2015 Diabetes type 2, controlled E11.9 [facility] [address] [place] [id number] [place] [address] 728078- 1246 Aug, Type 2 diabetes mellitus with other circulatory complications E11.59 and Hypertension, essential I10 [facility] [address] [place] [id number] [place] [address] 75084- 3915 July, Type 2 diabetes mellitus with hyperglycemia E11.65 and Hypertension, benign I10 [place] [address] [place] [id number] [place] [address] 80963- 6011 May, Type 2 diabetes mellitus with other circulatory complications E11.59 [place] [address] [place] [id number] [place] [address] 22026- 1597 Apr, Diabetes type 2, controlled E11.9 [facility] [address] [place] [id number] [address]- 5427 Jan, Type 2 diabetes mellitus with other circulatory complications E11.59 [place] [address] [place] [id number] [address]- 9209 Dec, Type 2 diabetes mellitus with other circulatory complications E11.59 [place] [address], [place] [address]- 2913 Aug, Diabetes 250.00 [facility] [address] [place] [id number] [place] [address] 45707- 7540 July, Diabetes 250.00 [facility] [address], [place] [address]- 2529 Jun, [place] [address] [place] [id number] [place] [address] 06481- 6965 Jun, [facility] [address], [place] [address]- 5938 Jun, [facility] [address] [address]- 4207 14 Jun, 2014 [facility] [place] [facility] [address] [id number] [place] [address]- 4693 Jun, [facility] [place] [facility] [address] [id number] [place] [address]- 0705 May, [facility] [place] [facility] [address] [id number] [place] [address]- 2327 May, [facility] [place] [facility] [address] [id number] [place] [address]- 3493 Apr, [facility] [place] [facility] [address] [id number] [place] [address]- 1103 Apr, [facility] [place] [facility] [address] [id number] [place] [address]- 1003 Mar, [facility] [place] [facility] [address] [id number] [place] [address]- 8790 Mar, [facility] [place] [facility] [address] [id number] [place] [address]- 2878 Feb, [facility] [place] [facility] [address] [id number] [place] [address]- 0602 Feb, [facility] [place] [facility] [address] [id number] [place] [address]- 0284 Feb, [facility] [place] [facility] [address] [id number] [place] [address]- 9137 Feb, [facility] [place] [facility] [address] [id number] [place] 5706 Feb, [facility] [place] [facility] [address] [id number] [place] [address]- 5492 Feb, [facility] [place] [facility] [address] [id number] [place] [address]- 7613 Dec, [facility] [place] [facility] [address] [id number] [place] [address]- 7361 Dec, [facility] [place] [facility] [address] [id number] [place] [address]- 4437 29 Nov, 2013 [facility] [place] [facility] [address] [id number] [place] [address]- 1738 29 Nov, 2013 [facility] [place] [facility] [address] [id number] [place] [address]- 5312 29 Nov, 2013 [facility] [place] [facility] [address] [id number] [place] [address]- 2657 29 Nov, 2013 [facility] [place] [facility] [address] [id number] [place] [address]- 9905 Nov, [facility] [place] [facility] [address] [id number] [place] [address]- 2148 Nov, [facility] [place] [facility] [address] [id number] [place] [address]- 7206 Nov, [facility] [place] [facility] [address] [id number] [place] [address]- 5753 Nov, [facility] [place] [facility] [address] [id number] [place] [address]- 0203 Aug, [facility] [place] [facility] [address] [id number] [place] [address]- 9839 Aug, [facility] [place] [facility] [address] [id number] [address]- 0959 Aug, [facility] [place] [facility] [address] [id number], [place] [address]- 6923 Aug, [facility] [place] [facility] [address] [id number] [place] [address]- 1061 July, [facility] [place] [facility] [address] [id number] [place] [address]- 1025 July, [facility] [place] [facility] [address] [id number] [place] [address]- 2151 Jun, [facility] [place] [facility] [address] [id number] [place] [address]- 0835 15 Jun, 2013 [facility] [place] [facility] [address] [id number] [place] [address]- 2261 15 Jun, 2013 [facility] [place] [facility] [address] [id number] [place] [address]- 1791 15 Jun, 2013 [facility] [place] [facility] [address] [id number] [place] [address]- 1182 May, [facility] [place] [facility] [address] [id number] [place] [address]- 9135 May, [facility] [place] [facility] [address] [id number] [place] [address]- 9460 Apr, [facility] [place] [facility] [address] [id number] [place] [address]- 6613 Apr, [facility] [place] [facility] [address] [id number] [place] [address]- 3523 Mar, [facility] [place] [facility] [address] [id number] [place] [address]- 8336 Mar, [facility] [place] [facility] [address] [id number] [place] [address]- 9275 Mar, [facility] [place] [facility] [address] [id number] [place] [address]- 3925 Mar, [facility] [place] [facility] [address] [id number] [place] [address]- 9256 Feb, [facility] [place] [facility] [address] [id number] [place] [address]- 3395 Feb, [facility] [place] [facility] [address] [id number] [place] [address]- 0543 Jan, [facility] [place] [facility] [address] [id number] [place] [address]- 2047 Jan, [facility] [place] [facility] [address] [id number] [place] [address]- 4432 Dec, [facility] [place] [facility] [address] [id number] [place] [address]- 4671 Dec, [facility] [address] [id number] [place] [address]- 2145 Dec, [facility] [address] [id number] [place] [address]- 1851 Dec, [facility] [address] [id number] [place] [address]- 1232 Nov, [facility] [address] [id number] [place] [address]- 3210 Sep, [facility] [address] [id number] [place] [address]- 4003 Sep, [facility] [address] [id number] [place] [address]- 9293 Aug, [facility] [address] [id number] [place] [address]- 7568 July, [facility] [address] [id number] [place] [address]- 8210 Jun, [facility] [address] [id number] [place] [address]- 9280 May, [facility] [address] [id number] [place] [address]- 3650 May, [facility] [address] [id number] [place] [address]- 8090 May, [facility] [address] [id number] [place] [address]- 5172 May, [facility] [place] [facility] [address] [id number] [place] [address]- 8495 May, [facility] [address] [id number] [place] [address]- 9763 Feb, [facility] [address] [id number] [place] [address]- 1519 Feb, [facility] [place] [facility] [address] [id number] [place] [address]- 8014 Jan, [facility] [place] [facility] [address] [id number] [place] [address]- 3646 Jan, [facility] [place] [facility] [address] [id number] [place] [address]- 2735 Jan, [facility] [place] [facility] [address] [id number] [place] [address]- 9309 Jan, [facility] [place] [facility] [address] [id number] [place] 0463 Jan, [facility] [place] [facility] [address] [id number] [place] 9038 Jan, [facility] [place] [facility] [address] [id number] [place] [address]- 1643 Dec, [facility] [place] [facility] [address] [id number] [place] [address]- 0864 Dec, [facility] [place] [facility] [address] [id number] [place] [address]- 0077 Dec, [facility] [place] [facility] [address] [id number] [place] [address]- 5744 18 Dec, 2011 [facility] [place] [facility] [address] [id number] [address]- 6485 10 Dec, 2011 [facility] [place] [facility] [address] [id number], [place] [address]- 6224 26 Nov, 2011 [facility] [place] [facility] [address] [id number] [place] 8684 18 Nov, 2011 [facility] [place] [facility] [address] [id number] [place] 2080 13 Nov, 2011 [facility] [place] [facility] [address] [id number] [place] [address]- 5075 Sep, [facility] [place] [facility] [address] [id number] [place] [address]- 3789 Aug, [facility] [address] [id number] [place] [address]- 6068 Aug, [facility] [place] [facility] [address] [id number] [place] [address]- 7586 May, [facility] [address] [id number] [place] [address]- 5536 Apr, [facility] [place] [facility] [address] [id number] [place] [address]- 9709 Mar, [facility] [address] [id number] [place] [address]- 0359 Mar, [facility] [address] [id number] [place] [address]- 1375 Dec, [facility] [place] [facility] [address] [id number] [place] [address]- 3610 Sep, [facility] [address] [id number] [place] [address]- 8818 Feb, [facility] [place] [facility] [address] [id number] [place] [address]- 1949 Feb, [facility] [address] [id number] [place] [address]- 7158 11 Jan, 2010 [facility] [place] [facility] [address] [id number] [place] [address] 2544 08 Jan, 2010 [facility] [place] [facility] [address] [id number] [place] [address] 2543 10 Nov, 2009 [facility] [place] [facility] [address] [id number] [place] [address] 2542 15 Feb, 2009 [facility] [place] [facility] [address] [id number] [place] [address]- 2546 15 Feb, 2009 [facility] [place] [facility] [address] [id number] [place] [address] 2548 Jan, [facility] [address] [facility] [id number], [place] [address]- 2546 Jan, [facility] [address] [facility] [id number], [place] [address]- 2546 Dec, [facility] [address] [facility] [id number], [place] [address]- 2546 Dec, [facility] [address], [place] [address]- 2546 Nov, [facility] [address] [place] [id number] [address]- 8946 Oct, [facility] [address], [place] [address]- 4986 Sep, [facility] [id number] [address]- 7316 Aug, IMMUNIZATIONS No Known Immunizations SOCIAL HISTORY Never Assessed REASON FOR VISIT samples PLAN OF CARE VITAL SIGNS MEDICATIONS Medication Instructions Dosage Frequency Start Date End Date Duration Status Pen [place] 32G X 4 MM subcutaneously 4 times a day as directed with insulin 6h Sep, Active RESULTS No Results PROCEDURES No [...]
--- OUTSIDE RECORDS SUMMARY | 2018-04-18 11:31 | XMS REPORT ---
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 168084260 Problem Type 2 diabetes mellitus with hyperglycemia E11.65 Active 707100140 Problem Type 2 diabetes mellitus without complications E11.9 Active 613499891 Problem Controlled type 2 diabetes mellitus without complication, without long -term current use of insulin E11.9 Active [id number] ALLERGIES No Information ENCOUNTERS Encounter Location Date Diagnosis [place] [id number] [place] [address]57- 2226 Oct, Other elevated white blood cell (WBC) count D72.828 and Type 2 diabetes mellitus with other circulatory complications E11.59 [place] [address], [place] [address] Sep, [facility] [id number] [place] [address] 68529- 5424 Sep, Diabetes type 2, controlled E11.9 [facility] [id number] [place] [address] 76222- 5647 Aug, Type 2 diabetes mellitus with hyperglycemia E11.65 [facility] [address], [place] [address] 9[address] July, [facility] [id number] [place] [address] [place] [address]- 7652 Jun, Diabetes type 2, controlled E11.9 ; Other chronic pain G89.29 ; Pain in left knee M25.562 and Pain in right knee M25.561 [place] [address], [place] [address] May, [place] [id number] [place] [address]15- 4839 Feb, Other viral agents as the cause of diseases classified elsewhere B97.89 and Acute upper respiratory infection, unspecified J06.9 [place] [id number] [place] [address] 53582- 8796 Feb, [place] [address] [id number] [place] [address] 39487- 4659 Feb, Type 2 diabetes mellitus without complications E11.9 and [facility] current use of insulin Z79.4 [place] [id number] [place] [address] 91738- 6335 Dec, [place] [id number] [place] [address] 86995- 7708 Dec, [place] [id number] [place] [address] 26362- 2877 Nov, Type 2 diabetes mellitus without complications E11.9 and 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 [place] [address], [place] [address] 8206 Nov, [place] [address], [place] [address] 3636 Nov, Controlled type 2 diabetes mellitus without complication, without long-term current use of insulin E11.9 [place] [address], [place] [address] 2135 Nov, Controlled type 2 diabetes mellitus without complication, without long-term current use of insulin E11.9 [place] [address] [place] [address] 90185- 3932 Nov, Type 2 diabetes mellitus with other circulatory complications E11.59 [facility] [address], [place] [address]- 9556 Oct, Type 2 diabetes mellitus with hyperglycemia E11.65 [facility] [address], [place] [address] 7156 Oct, [facility] [address] [address] [address] Oct, [facility] [address] [address] Oct, Type 2 diabetes mellitus without complications E11.9 [facility] [address], [place] [address]- 3506 Sep, Type 2 diabetes mellitus with hyperglycemia E11.65 [facility] [address], [place] [address]- 6156 Sep, Type 2 diabetes mellitus with other circulatory complications E11.59 [facility] [address], [place] [address]- 0841 Aug, [facility] [address], [place] [address] 2073 July, Controlled type 2 diabetes mellitus without complication, without long-term current use of insulin E11.9 [facility] [address], [place] [address]- 9576 May, [facility] [address] [address] [address] Feb, Controlled type 2 diabetes mellitus without complication, without long-term current use of insulin E11.9 [facility] [address] Jan, Controlled type 2 diabetes mellitus without complication, without long-term current use of insulin E11.9 [facility] [id number] [address] 0576 Jan, Type 2 diabetes mellitus with hyperglycemia E11.65 and 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 [facility] [address], [place] [address]- 6134 16 Nov, 2015 Diabetes type 2, controlled E11.9 [facility] [address] [id number] [place] [address] 540352- 2276 Aug, Type 2 diabetes mellitus with other circulatory complications E11.59 and Hypertension, essential I10 [facility] [address] [place] [id number] [place] [address] 16826- 1260 July, Type 2 diabetes mellitus with hyperglycemia E11.65 and Hypertension, benign I10 [place] [address] [address] [id number] [place] [address] 66785- 7626 May, Type 2 diabetes mellitus with other circulatory complications E11.59 [place] [address] [address] [id number] [place] [address] 40927- 2365 Apr, Diabetes type 2, controlled E11.9 [facility] [id number] [address]- 5799 Jan, Type 2 diabetes mellitus with other circulatory complications E11.59 [place] [address] [address] [id number] [address] 6854 Dec, Type 2 diabetes mellitus with other circulatory complications E11.59 [place] [address], [place] [address]- 4241 Aug, Diabetes 250.00 [facility] [address] [place] [address] [id number] [place] [address] 95508- 9317 July, Diabetes 250.00 [facility] [address], [place] [address]- 6727 Jun, [place] [address] [id number] [place] [address] 41518- 8704 Jun, [facility] [address], [place] [address]- 1587 Jun, [facility] [address] [place] [address]- 6839 14 Jun, 2014 [facility] [place] [facility] [address] [id number] [place] [address]- 2123 Jun, [facility] [place] [facility] [address] [id number] [place] [address]- 4572 May, [facility] [place] [facility] [address] [id number] [place] [address]- 3725 May, [facility] [place] [facility] [address] [id number] [place] [address]- 0378 Apr, [facility] [place] [facility] [address] [id number] [place] [address]- 8012 Apr, [facility] [place] [facility] [address] [id number] [place] [address]- 7321 Mar, [facility] [place] [facility] [address] [id number] [place] [address]- 6548 Mar, [facility] [place] [facility] [address] [id number] [place] [address]- 0755 Feb, [facility] [place] [facility] [address] [id number] [place] [address]- 8545 Feb, [facility] [place] [facility] [address] [id number] [place] [address]- 1763 Feb, [facility] [place] [facility] [address] [id number] [place] [address]- 9644 Feb, [facility] [place] [facility] [address] [id number] [place] [address]- 7035 Feb, [facility] [place] [facility] [address] [id number] [place] [address]- 5365 Feb, [facility] [place] [facility] [address] [id number] [place] [address]- 3280 Dec, [facility] [place] [facility] [address] [id number] [place] [address]- 1166 Dec, [facility] [place] [facility] [address] [id number] [place] [address]- 9200 29 Nov, 2013 [facility] [place] [facility] [address] [id number] [place] [address]- 0862 29 Nov, 2013 [facility] [place] [facility] [address] [id number] [place] [address]- 1902 29 Nov, 2013 [facility] [place] [facility] [address] [id number] [place] [address]- 6386 29 Nov, 2013 [facility] [place] [facility] [address] [id number] [place] [address]- 4861 Nov, [facility] [place] [facility] [address] [id number] [place] [address]- 4257 Nov, [facility] [place] [facility] [address] [id number] [place] [address]- 6593 Nov, [facility] [place] [facility] [address] [id number] [place] [address]- 6126 Nov, [facility] [place] [facility] [address] [id number] [place] [address]- 8709 Aug, [facility] [place] [facility] [address] [id number] [place] [address]- 3884 Aug, [facility] [place] [facility] [address] [id number], [place] [address]- 0502 Aug, [facility] [place] [facility] [address] [id number], [place] [address]- 1683 Aug, [facility] [place] [facility] [address] [id number] [place] [address]- 5430 July, [facility] [place] [facility] [address] [id number] [place] [address]- 2956 July, [facility] [place] [facility] [address] [id number] [place] [address]- 0314 Jun, [facility] [place] [facility] [address] [id number] [place] [address]- 9115 15 Jun, 2013 [facility] [place] [facility] [address] [id number] [place] [address]- 4845 15 Jun, 2013 [facility] [place] [facility] [address] [id number] [place] [address]- 1892 15 Jun, 2013 [facility] [place] [facility] [address] [id number] [place] [address]- 7827 May, [facility] [place] [facility] [address] [id number] [place] [address]- 8441 May, [facility] [place] [facility] [address] [id number] [place] [address]- 1669 Apr, [facility] [place] [facility] [address] [id number] [place] [address]- 8281 Apr, [facility] [place] [facility] [address] [id number] [place] [address]- 3341 Mar, [facility] [place] [facility] [address] [id number] [place] [address]- 9862 Mar, [facility] [place] [facility] [address] [id number] [place] [address]- 0823 Mar, [facility] [place] [facility] [address] [id number] [place] [address]- 0534 Mar, [facility] [place] [facility] [address] [id number] [place] [address]- 4807 Feb, [facility] [place] [facility] [address] [id number] [place] [address]- 7798 Feb, [facility] [place] [facility] [address] [id number] [place] [address]- 7408 Jan, [facility] [place] [facility] [address] [id number] [place] [address]- 1330 Jan, [facility] [place] [facility] [address] [id number] [place] [address]- 0973 Dec, [facility] [place] [facility] [address] [id number] [place] [address]- 1144 Dec, [facility] [address] [id number] [place] [address]- 2866 Dec, [facility] [address] [id number] [place] [address]- 5834 Dec, [facility] [address] [id number] [place] [address]- 6706 Nov, [facility] [address] [id number] [place] [address]- 4305 Sep, [facility] [address] [id number] [place] [address]- 4997 Sep, [facility] [address] [id number] [place] [address]- 3080 Aug, [facility] [address] [id number] [place] [address]- 2848 July, [facility] [address] [id number] [place] [address]- 5832 Jun, [facility] [address] [id number] [place] [address]- 4705 May, [facility] [address] [id number] [place] [address]- 4784 May, [facility] [address] [id number] [place] [address]- 7861 May, [facility] [address] [id number] [place] [address]- 8807 May, [facility] [place] [facility] [address] [id number] [place] [address]- 1568 May, [facility] [address] [id number] [place] [address]- 6315 Feb, [facility] [address] [id number] [place] [address]- 9158 Feb, [facility] [place] [facility] [address] [id number] [place] [address]- 3490 Jan, [facility] [place] [facility] [address] [id number] [place] [address]- 6706 Jan, [facility] [place] [facility] [address] [id number] [place] [address]- 2117 Jan, [facility] [place] [facility] [address] [id number] [place] [address]- 4207 Jan, [facility] [place] [facility] [address] [id number] [place] [address] Jan, [facility] [place] [facility] [address] [id number] [place] 6261 Jan, [facility] [place] [facility] [address] [id number] [place] [address]- 4580 Dec, [facility] [place] [facility] [address] [id number] [place] [address]- 7020 Dec, [facility] [place] [facility] [address] [id number] [place] [address]- 0748 Dec, [facility] [place] [facility] [address] [id number] [place] [address]- 3514 18 Dec, 2011 [facility] [place] [facility] [address] [id number], [place] [address]- 5540 10 Dec, 2011 [facility] [place] [facility] [address] [id number], [place] [address]- 9891 26 Nov, 2011 [facility] [place] [facility] [address] [id number] [place] 9165 18 Nov, 2011 [facility] [place] [facility] [address] [id number] [place] 4910 13 Nov, 2011 [facility] [place] [facility] [address] [id number] [place] [address]- 5759 Sep, [facility] [place] [facility] [address] [id number] [place] [address]- 1556 Aug, [facility] [address] [id number] [place] [address]- 2151 Aug, [facility] [place] [facility] [address] [id number] [place] [address]- 0086 May, [facility] [address] [id number] [place] [address]- 1472 Apr, [facility] [place] [facility] [address] [id number] [place] [address]- 6387 Mar, [facility] [address] [id number] [place] [address]- 9534 Mar, [facility] [address] [id number] [place] [address]- 6056 Dec, [facility] [place] [facility] [address] [id number] [place] [address]- 2542 Sep, [facility] [address] [id number] [place] [address]- 0036 Feb, [facility] [place] [facility] [address] [id number] [place] [address]- 9933 Feb, [facility] [address] [id number] [place] [address]- 6003 11 Jan, 2010 [facility] [place] [facility] [address] [id number] [place] [address] 2543 08 Jan, 2010 [facility] [place] [facility] [address] [id number] [place] [address] 2548 10 Nov, 2009 [facility] [place] [facility] [address] [id number] [place] [address] 2545 15 Feb, 2009 [facility] [place] [facility] [address] [id number] [place] [address]- 2546 15 Feb, 2009 [facility] [place] [facility] [address] [id number] [place] [address] 254 Jan, [facility] [address] [facility] [id number], [place] [address]- 2546 Jan, [facility] [address] [facility] [id number], [place] [address]- 2546 Dec, [facility] [address] [facility] [id number], [place] [address]- 2546 Dec, [facility] [address], [place] [address]- 2546 Nov, [facility] [id number], [place] [address]- 5726 Oct, [facility] [id number], [place] [address]- 8076 Sep, [facility] [id number], [place] [address]- 6576 Aug, IMMUNIZATIONS No Known Immunizations SOCIAL HISTORY Never Assessed REASON FOR VISIT Controlled Med Refill PLAN OF CARE VITAL SIGNS MEDICATIONS Medication Instructions Dosage Frequency Start Date End Date Duration Status Percocet 5-325 MG Orally every 6 hrs 1 tablet as needed 6h July, Active RESULTS No Results PROCEDURES No Known [...]
--- OUTSIDE RECORDS SUMMARY | 2018-04-18 11:31 | XMS REPORT ---
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 339242076 Problem Other chronic pain G89.29 Active 08832962 Problem Type 2 diabetes mellitus without complications E11.9 Active 957272373 Problem Type 2 diabetes mellitus with hyperglycemia E11.65 Active 550112309 Problem Diabetes type 2, controlled E11.9 Active 58581233 Problem Controlled type 2 diabetes mellitus without complication, without long -term current use of insulin E11.9 Active 197218587 Problem long-term current use of insulin Z79.4 Active [id number] ALLERGIES No Known Allergies ENCOUNTERS Encounter Location Date Diagnosis [place] [id number] [place] [address] 12708- 2925 Oct, [place] [id number] [place] [address] 37163- 0128 Sep, [place] [id number] [place] [address] 45949- 5643 Sep, Diabetes type 2, controlled E11.9 [facility] [place] [id number] [place] [address] 97015- 3416 Aug, Type 2 diabetes mellitus with hyperglycemia E11.65 [place] [address] 14032- 6058 July, [place] [id number] [place] [address] 98222- 4272 Jun, Diabetes type 2, controlled E11.9 ; Other chronic pain G89.29 ; Pain in left knee M25.562 and Pain in right knee M25.561 [place] [address] [address] May, [place] [id number] [place] [address] 21046- 2705 Feb, Other viral agents as the cause of diseases classified elsewhere B97.89 and Acute upper respiratory infection, unspecified J06.9 [place] [id number] [place] [address] 66562- 8771 Feb, [place] [id number] [place] [address] 71502- 0237 Feb, Type 2 diabetes mellitus without complications E11.9 and long-term current use of insulin Z79.4 [place] [id number] [place] [address] 06938- 3768 Dec, [place] [id number] [place] [address] 19106- 3334 Dec, [place] [id number] [place] [address] 20301- 7158 Nov, Type 2 diabetes mellitus without complications E11.9 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 [place] [address] [address] 2047 Nov, [place] [address], [place] [address] 1292 Nov, Controlled type 2 diabetes mellitus without complication, without long-term current use of insulin E11.9 [place] [id number] [place] [address] 94591- 5984 Nov, Controlled type 2 diabetes mellitus without complication, without long-term current use of insulin E11.9 [place] [id number] [place] [address] 18091- 6806 Nov, Type 2 diabetes mellitus with other circulatory complications E11.59 [place] [id number] [place] [address] 25738- 1794 Oct, Type 2 diabetes mellitus with hyperglycemia E11.65 [facility] [place] [address], [place] [address] 7715 Oct, [facility] [place] [id number] [place] [address] 821242- 7639 Oct, [place] [id number] [place] [address] 17122- 6505 Oct, Type 2 diabetes mellitus without complications E11.9 [place] [id number] [place] [address] 30491- 4094 Sep, Type 2 diabetes mellitus with hyperglycemia E11.65 [place] [id number] [place] [address] 42107- 6099 Sep, Type 2 diabetes mellitus with other circulatory complications E11.59 [place] [id number] [place] [address] 09589- 9354 Aug, [place] [id number] [place] [address] 77978- 1298 July, Controlled type 2 diabetes mellitus without complication, without long-term current use of insulin E11.9 [place] [id number] [place] [address] 94059- 0957 May, [place] [address] [address] 1989 Feb, Controlled type 2 diabetes mellitus without complication, without long-term current use of insulin E11.9 [place] [address] [address]- 4195 Jan, Controlled type 2 diabetes mellitus without complication, without long-term current use of insulin E11.9 [place] [address] [place] [address] 566690- 1435 Jan, Type 2 diabetes mellitus with hyperglycemia E11.65 and long-term current use of insulin Z79.4 [place] [address] [place] [address] 49762- 2407 Nov, Diabetes type 2, controlled E11.9 [facility] [place] [address], [place] [address]- 6074 Aug, Type 2 diabetes mellitus with other circulatory complications E11.59 and Hypertension, essential I10 [facility] [place] [id number] [place] [address] 23248- 3437 July, Type 2 diabetes mellitus with hyperglycemia E11.65 and Hypertension, benign I10 [facility] [place] [id number] [place] [address] 98482- 9081 May, Type 2 diabetes mellitus with other circulatory complications E11.59 [facility] [place] [id number] [place] [address] 831785- 8403 Apr, Diabetes type 2, controlled E11.9 [facility] [place] [id number] [place] [address] 49396- 9310 Jan, Type 2 diabetes mellitus with other circulatory complications E11.59 [facility] [place] [id number] [place] [address] 13439- 0465 Dec, Type 2 diabetes mellitus with other circulatory complications E11.59 [facility] [place] [id number] [place] [address] 15998- 4019 Aug, Diabetes 250.00 [facility] [place] [id number] [place] [address] 61716- 4857 July, Diabetes 250.00 [facility] [place] [id number] [place] [address] 46713- 8115 Jun, [facility] [place] [id number] [place] [address] 54475- 3755 Jun, [facility] [place] [id number] [place] [address] 55666- 8861 Jun, [facility] [place] [id number] [place] [address] 36280- 7068 14 Jun, 2014 [facility] [place] [id number] [place] [address] 54634- 5696 Jun, [facility] [place] [facility] [address] [id number] [place] 6923 May, [facility] [place] [facility] [address] [id number] [place] [address]- 8812 May, [facility] [place] [facility] [address] [id number] [place] [address]- 8706 Apr, [facility] [place] [facility] [address] [id number] [place] [address]- 0374 Apr, [facility] [place] [facility] [address] [id number] [place] [address]- 8150 Mar, [facility] [place] [facility] [address] [id number] [place] [address]- 9891 Mar, [facility] [place] [facility] [address] [id number] [place] [address]- 2622 Feb, [facility] [place] [facility] [address] [id number] [place] [address]- 6161 Feb, [facility] [place] [facility] [address] [id number] [place] [address]- 5590 Feb, [facility] [place] [facility] [address] [id number] [place] [address]- 4917 Feb, [facility] [place] [facility] [address] [id number] [place] [address]- 4192 Feb, [facility] [place] [facility] [address] [id number] [address]- 9372 Feb, [facility] [place] [facility] [address] [id number] [place] [address]- 4959 Dec, [facility] [place] [facility] [address] [id number] [place] 0007 Dec, [facility] [place] [facility] [address] [id number] [place] [address]- 1019 29 Nov, 2013 [facility] [place] [facility] [address] [id number] [place] [address]- 0813 29 Nov, 2013 [facility] [place] [facility] [address] [id number] [place] [address]- 4737 29 Nov, 2013 [facility] [place] [facility] [address] [id number] [place] [address]- 1785 29 Nov, 2013 [facility] [place] [facility] [address] [id number] [place] [address]- 2566 17 Nov, 2013 [facility] [place] [facility] [address] [id number] [place] [address]- 2459 17 Nov, 2013 [facility] [place] [facility] [address] [id number] [place] [address]- 8318 12 Nov, 2013 [facility] [place] [facility] [address] [id number] [place] [address]- 0847 Nov, [facility] [place] [facility] [address] [id number] [place] [address]- 1744 Aug, [facility] [place] [facility] [address] [id number] [place] [address]- 0917 Aug, [facility] [place] [facility] [address] [id number] [place] [address]- 4207 Aug, [facility] [place] [facility] [address] [id number] [place] [address]- 1798 Aug, [facility] [place] [facility] [address] [id number] [place] [address]- 1374 July, [facility] [place] [facility] [address] [id number] [place] [address]- 8667 July, [facility] [place] [facility] [address] [id number] [place] [address]- 6682 Jun, [facility] [place] [facility] [address] [id number] [place] [address]- 4581 Jun, [facility] [place] [facility] [address] [id number] [place] [address]- 2023 Jun, [facility] [place] [facility] [address] [id number] [place] [address]- 5224 Jun, [facility] [place] [facility] [address] [id number] [place] [address]- 4756 May, [facility] [place] [facility] [address] [id number] [place] [address]- 4347 May, [facility] [place] [facility] [address] [id number] [place] [address]- 5442 Apr, [facility] [place] [facility] [address] [id number] [place] [address]- 8439 Apr, [facility] [place] [facility] [address] [id number] [place] [address]- 8779 Mar, [facility] [place] [facility] [address] [id number] [place] [address]- 0726 Mar, [facility] [place] [facility] [address] [id number] [place] [address]- 0505 Mar, [facility] [place] [facility] [address] [id number] [place] [address]- 4700 Mar, [facility] [place] [facility] [address] [id number] [place] [address]- 7241 Feb, [facility] [place] [facility] [address] [id number] [address]- 2481 Feb, [facility] [place] [facility] [address] [id number] [address]- 8610 Jan, [facility] [place] [facility] [address] [id number] [place] [address]- 7453 Jan, [facility] [place] [facility] [address] [id number] [place] [address]- 3598 Dec, [facility] [place] [facility] [address] [id number] [place] [address]- 5337 Dec, [facility] [place] [facility] [address] [id number] [place] [address]- 0796 Dec, [facility] [address] [id number] [place] [address]- 9629 Dec, [facility] [address] [id number] [place] [address]- 9606 Nov, [facility] [address] [id number] [place] [address]- 7966 Sep, [facility] [address] [id number] [place] [address]- 7458 Sep, [facility] [address] [id number] [place] [address]- 6245 Aug, [facility] [address] [id number] [place] [address]- 6384 July, [facility] [address] [id number] [place] [address]- 2705 Jun, [facility] [address] [id number] [place] [address]- 2184 May, [facility] [address] [id number] [place] [address]- 1087 May, [facility] [address] [id number] [place] [address]- 6629 May, [facility] [address] [id number] [place] [address]- 9243 May, [facility] [address] [id number] [place] [address]- 1283 May, [facility] [address] [id number] [place] [address]- 0401 Feb, [facility] [place] [facility] [address] [id number] [place] [address]- 6286 Feb, [facility] [address] [id number] [place] [address]- 1679 Jan, [facility] [place] [facility] [address] [id number] [place] [address]- 5045 30 Jan, 2012 [facility] [place] [facility] [address] [id number] [place] [address]- 7017 Jan, [facility] [place] [facility] [address] [id number] [place] [address]- 1853 Jan, [facility] [place] [facility] [address] [id number] [place] [address], [place] [address]- 0802 Jan, [facility] [place] [facility] [address] [id number] [place] [address]- 3886 Jan, [facility] [place] [facility] [address] [id number] [place] [address]- 0549 18 Dec, 2011 [facility] [place] [facility] [address] [id number] [place] [address]- 1804 18 Dec, 2011 [facility] [place] [facility] [address] [id number] [place] [address]- 5211 18 Dec, 2011 [facility] [place] [facility] [address] [id number] [place] [address]- 1040 18 Dec, 2011 [facility] [place] [facility] [address] [facility] [id number] [place] [address]- 1360 10 Dec, 2011 [facility] [place] [facility] [address] [facility] [id number] [place] [address]- 9386 26 Nov, 2011 [facility] [place] [facility] [address] [id number] [place] [address]- 7769 18 Nov, 2011 [facility] [place] [facility] [address] [id number] [place] [address]- 7855 13 Nov, 2011 [facility] [place] [facility] [address] [id number] [place] [address]- 8785 06 Sep, 2011 [facility] [place] [facility] [address] [id number] [place] [address]- 0607 Aug, [facility] [place] [facility] [address] [id number], [place] [address]- 4656 Aug, [facility] [place] [facility] [address] [id number] [place] [address]- 3296 May, [facility] [place] [facility] [address] [id number] [place] [address]- 5636 Apr, [facility] [place] [facility] [address] [id number] [place] [address]- 5796 Mar, [facility] [place] [facility] [address] [id number] [place] [address]- 1166 Mar, [facility] [place] [facility] [address] [id number] [place] [address]- 0558 Dec, [facility] [place] [facility] [address] [id number] [place] [address]- 3548 Sep, [facility] [place] [facility] [address] [id number] [place] [address]- 1538 2010 [facility] [place] [facility] [address] [id number] [place] [address]- 3998 2010 [facility] [place] [facility] [address] [id number] [place] [address]- 2952 11 Jan, 2010 [facility] [place] [facility] [address] [id number] [place] [address]- 7525 08 Jan, 2010 [facility] [place] [facility] [address] [id number], [place] [address]- 0729 10 Nov, 2009 [facility] [place] [facility] [address] [id number], [place] [address]- 0156 15 Feb, 2009 [facility] [place] [facility] [address] [id number] [place] [address] 254 15 Feb, 2009 [facility] [place] [facility] [address] [id number] [place] [address] 2547 16 Jan, 2009 [facility] [place] [facility] [address] [id number] [place] [address] 2544 16 Jan, 2009 [facility] [place] [facility] [address] [facility] [id number] [place] [address] 9631 Dec, [facility] [place] [address] [facility] [id number], [place] [address]- 2581 Dec, [facility] [place] [address] [id number] [address]- 2396 Nov, [facility] [place] [id number] [address]- 7929 Oct, [facility] [place] [address] [facility] [id number], [place] [address]- 0294 Sep, [place] [id number] [address]- 0973 Aug, IMMUNIZATIONS No Known Immunizations SOCIAL HISTORY Never Assessed REASON FOR VISIT Diabetes-Ricardo MCKINLEY PLAN OF CARE VITAL SIGNS Height 71 in 2017-06-15 Weight 293.2 lbs 2017-06-15 Temperature 98.3 degrees Fahrenheit 2017-06-15 Heart Rate 78 bpm 2017-06-15 Respiratory Rate 22 2017-06-15 BMI 40.89 kg/m2 2017-06-15 Blood pressure systolic 154 mmHg 2017-06-15 Blood pressure diastolic 76 mmHg 2017-06-15 MEDICATIONS Medication Instructions Dosage Frequency Start Date End Date Duration Status Fish Oil 1000 MG Orally Once a day 1 capsule 24h Active Lisinopril-Hydrochlorothiazide 20-12.5MG TAKE TWO TABLETS BY MOUTH ONCE DAILY 90 Active Amaryl 4 MG Orally 2 times per day 1 tablet 90 Active Metoprolol Tartrate 50MG TAKE ONE TABLET BY MOUTH TWICE DAILY WITH MEALS 90 Active Aspirin 81 MG Orally Once a day 1 tablet 24h Active Pen [place] 32G X 4 MM subcutaneously 4 times a day as directed with insulin 6h Sep, 90 days Active Lovastatin 20MG TAKE ONE TABLET BY MOUTH ONCE DAILY WITH A MEAL Active Metformin HCl 1000 mg 1 tablet with meals 12h Active NovoLog Flexpen 100 UNIT/ML Subcutaneous before meals inject 25 units Sep, Active Levemir FlexTouch 100 UNIT/ML DX E11.59 2 times a day 50 units 12h Oct, Active Amlodipine Besylate 5 mg 1 tablet 24h 90 Active RESULTS Name Result Date Reference Range A1C (IN HOUSE) 2017-06-15 A1C IN HOUSE 6.9 4.3 - 5.6 % Previous A1c 6.8 Lot [id number] Exp date 04/2019 PROCEDURES Procedure Date Ordered Result Body Site GLYCATED HEMOGLOBIN TEST June 15, 2017 [facility] VISIT ESTABLISHED PATIENT June 15, 2017 INSTRUCTIONS MEDICATIONS ADMINISTERED No Known Medications MEDICAL (GENERAL) HISTORY Type Description Date Medical History hypertension Medical History type II diabetes Medical History hyperlipidemia Medical History chronic pain-knees Surgical History tonsillectomy 1957 Surgical History carderacs removed from both eyes 2017 Surgical History Left knee replacement 2018 Hospitalization History surgeries
--- OUTSIDE RECORDS SUMMARY | 2018-04-18 11:37 | XMS REPORT | Continuity of Care Document ---
Author Author [facility] [place] [facility] Address Unknown Phone Unavailable Allergies Active Description Code Type Severity Reaction Onset Reported/Identified Relationship to Patient Clinical Status Yes Lisinopril HCTZ Drug Allergy 12/16/2008 Yes No Known Drug Allergies [id number] Drug Allergy Unknown N/A 04/18/2018 Medications There is no data. Problems Date Dx Coded Attending Type Code Diagnosis Diagnosed By JARRETT CALLE MD, Ot Z47.1 AFTERCARE FOLLOWING JOINT REPLACEMENT [place] JARRETT CALLE MD, Ot Z96.652 PRESENCE OF LEFT ARTIFICIAL KNEE JOINT 02/03/1248 JARRETT CALLE MD, Ot Z47.1 AFTERCARE FOLLOWING JOINT REPLACEMENT [place] 02/03/1248 JARRETT CALLE MD, Ot Z96.651 PRESENCE OF RIGHT ARTIFICIAL KNEE JOINT 08/15/2008 250.00 DIABETES MELLITUS TYPE 2 08/15/2008 [...] 2 08/15/2008 401.1 ESSENTIAL HYPERTENSION BENIGN 08/15/2008 ADAM DRAPER DO 250.00 DIABETES MELLITUS TYPE 2 08/15/2008 AADM DRAPER DO 401.1 ESSENTIAL HYPERTENSION BENIGN 08/15/2008 SHADIA BLAIR APRN 250.00 DIABETES MELLITUS TYPE 2 08/15/2008 SHADIA BLAIR APRN 401.1 ESSENTIAL HYPERTENSION BENIGN 08/15/2008 ROSSY SUPPLY MANAGER, SHADIA T 250.00 DIABETES MELLITUS TYPE 2 08/15/2008 ROSSY BARNHART, SHADIA T 401.1 ESSENTIAL HYPERTENSION BENIGN 08/15/2008 DRAPER DO, ADAM K 250.00 DIABETES MELLITUS TYPE 2 08/15/2008 DRAPER DO, ADAM K 401.1 ESSENTIAL HYPERTENSION BENIGN 08/15/2008 ROSSY MONTGOMERYN, SHADIA T 250.00 DIABETES MELLITUS TYPE 2 08/15/2008 ROSSY BARNHART, SHADIA T 401.1 ESSENTIAL HYPERTENSION BENIGN 08/15/2008 ZOE REED MD 250.00 DIABETES MELLITUS TYPE 2 08/15/2008 ZOE REED MD 401.1 ESSENTIAL HYPERTENSION BENIGN 08/15/2008 DRAPER DO, ADAM K 250.00 DIABETES MELLITUS TYPE 2 08/15/2008 DRAPER DO, ADAM K 401.1 ESSENTIAL HYPERTENSION BENIGN 08/15/2008 ROSSY BARNHART SHADIA T 250.00 DIABETES MELLITUS TYPE 2 08/15/2008 ROSSY BARNHART SHADIA T 401.1 ESSENTIAL HYPERTENSION BENIGN 08/15/2008 ROSSY BARNHART SHADIA T 250.00 DIABETES MELLITUS TYPE 2 08/15/2008 ROSSY BARNHART SHADIA T 401.1 ESSENTIAL HYPERTENSION BENIGN 08/15/2008 ROSSY BARNHART, SHADIA T 250.00 DIABETES MELLITUS TYPE 2 08/15/2008 ROSSY BARNHART, SHADIA T 401.1 ESSENTIAL HYPERTENSION BENIGN 08/15/2008 ROSSY BARNHART, SHADIA T 250.00 DIABETES MELLITUS TYPE 2 08/15/2008 ROSSY BARNHART SHADIA T 401.1 ESSENTIAL HYPERTENSION BENIGN 08/15/2008 ROSSY BARNHART SHADIA T 250.00 DIABETES MELLITUS TYPE 2 08/15/2008 ROSSY BARNHART SHADIA T 401.1 ESSENTIAL HYPERTENSION BENIGN 08/15/2008 [...] Ot Z01.811 ENCOUNTER FOR PREPROCEDURAL RESPIRATORY 07/12/2017 ZAFUTA MD, JARRETT P Ot Z01.812 ENCOUNTER FOR PREPROCEDURAL LABORATORY E 07/12/2017 JARRETT CALLE MD Ot Z11.2 ENCOUNTER FOR SCREENING FOR OTHER BACTER 07/13/2017 JARRETT CALLE MD Ot M17.12 UNILATERAL PRIMARY OSTEOARTHRITIS, LEFT 07/13/2017 JARRETT CALLE MD Ot R53.83 OTHER FATIGUE 07/13/2017 JARRETT CALLE MD Ot Z01.810 ENCOUNTER FOR PREPROCEDURAL CARDIOVASCUL 07/13/2017 JARRETT CALLE MD Ot Z01.811 ENCOUNTER FOR PREPROCEDURAL RESPIRATORY 07/13/2017 JARRETT CALLE MD Ot Z01.812 ENCOUNTER FOR PREPROCEDURAL LABORATORY E 07/13/2017 JARRETT CALLE MD Ot Z11.2 ENCOUNTER FOR SCREENING FOR OTHER BACTER 07/22/2017 JARRETT CALLE MD Ot D62 ACUTE POSTHEMORRHAGIC ANEMIA 07/22/2017 JARRETT CALLE MD Ot E11.9 TYPE 2 DIABETES MELLITUS WITHOUT COMPLIC 07/22/2017 JARRETT CALLE MD Ot E78.5 HYPERLIPIDEMIA, UNSPECIFIED 07/22/2017 JARRETT CALLE MD Ot I10 ESSENTIAL (PRIMARY) HYPERTENSION 07/22/2017 JARRETT CALLE MD Ot M17.12 UNILATERAL PRIMARY OSTEOARTHRITIS, LEFT 07/22/2017 JARRETT CALLE MD Ot Z79.4 SNF (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 OF INSULIN 08/23/2017 JARRETT CALLE MD Ot Z47.1 AFTERCARE FOLLOWING JOINT REPLACEMENT [place] 08/23/2017 JARRETT CALLE MD Ot Z96.652 PRESENCE OF LEFT ARTIFICIAL KNEE JOINT 08/23/2017 JARRETT CALLE MD Ot Z47.1 AFTERCARE FOLLOWING JOINT REPLACEMENT [place] 08/23/2017 JARRETT CALLE MD Ot Z96.652 PRESENCE OF LEFT ARTIFICIAL KNEE JOINT 09/12/2017 JARRETT CALLE MD Ot Z01.812 ENCOUNTER FOR PREPROCEDURAL LABORATORY E 09/12/2017 JARRETT CALLE MD Ot Z11.2 ENCOUNTER FOR SCREENING FOR OTHER BACTER 09/13/2017 JARRETT CALLE MD Ot Z01.812 ENCOUNTER FOR PREPROCEDURAL LABORATORY E 09/13/2017 JARRETT CALLE MD Ot Z11.2 ENCOUNTER FOR SCREENING FOR OTHER BACTER 09/19/2017 JARRETT CALLE MD Ot Z47.1 AFTERCARE FOLLOWING JOINT REPLACEMENT [place] 09/19/2017 JARRETT CALLE MD Ot Z96.652 PRESENCE OF LEFT ARTIFICIAL KNEE JOINT 09/20/2017 NYA ALANIZ, TR Puri Ot Z13.0 ENCNTR SCREEN FOR DIS OF THE BLD/BLD-FOR 09/23/2017 JARRETT CALLE MD Ot E11.9 TYPE 2 DIABETES MELLITUS WITHOUT COMPLIC 09/23/2017 JARRETT CALLE MD Ot E78.2 MIXED HYPERLIPIDEMIA 09/23/2017 JARRETT CALLE MD, Ot I10 ESSENTIAL (PRIMARY) HYPERTENSION 09/23/2017 JARRETT CALLE MD, Ot M17.11 UNILATERAL PRIMARY OSTEOARTHRITIS, RIGHT 09/23/2017 JARRETT CALLE MD, Ot Z13.0 ENCNTR SCREEN FOR DIS OF THE BLD/BLD-FOR 09/23/2017 JARRETT CALLE MD Ot Z79.4 POCKET GRINDER OPERATOR (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 OF INSULIN 09/23/2017 JARRETT CALLE MD Ot Z96.652 PRESENCE OF LEFT ARTIFICIAL KNEE JOINT 11/08/2017 CLIFF CUELLAR Ot D72.820 LYMPHOCYTOSIS (SYMPTOMATIC) 11/08/2017 CLIFF CUELLAR Ot R59.1 GENERALIZED ENLARGED LYMPH NODES 11/10/2017 JARRETT CALLE MD Ot Z47.1 AFTERCARE FOLLOWING JOINT REPLACEMENT [place] 11/10/2017 JARRETT CALLE MD Ot Z96.651 PRESENCE OF RIGHT ARTIFICIAL KNEE JOINT 11/13/2017 CLIFF CUELLAR Ot D72.820 LYMPHOCYTOSIS (SYMPTOMATIC) 11/13/2017 CLIFF CUELLAR Ot R59.1 GENERALIZED ENLARGED LYMPH NODES 11/17/2017 JARRETT CALLE MD Ot Z47.1 AFTERCARE FOLLOWING JOINT REPLACEMENT [place] 11/17/2017 JARRETT CALLE MD Ot Z96.651 PRESENCE OF RIGHT ARTIFICIAL KNEE JOINT 12/01/2017 CLIFF CUELLAR Ot D64.9 ANEMIA, UNSPECIFIED 12/01/2017 CLIFF CUELLAR Ot D72.820 LYMPHOCYTOSIS (SYMPTOMATIC) 12/01/2017 CLIFF CUELLAR Ot E11.9 TYPE 2 DIABETES MELLITUS WITHOUT COMPLIC 12/01/2017 CLIFF CUELLAR Ot I10 ESSENTIAL (PRIMARY) HYPERTENSION 12/01/2017 POLOCLIFF N Ot Z79.4 SNF (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 OF INSULIN 12/01/2017 CLIFF CUELLAR N Ot Z79.82 POCKET GRINDER OPERATOR (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 OF ASPIRIN 12/01/2017 POLOCLIFF YOUSIF N Ot Z79.899 OTHER POCKET GRINDER OPERATOR (CURRENT) DRUG THERAPY 12/01/2017 POLOCLIFF YOUSIF N Ot Z96.6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, BILAT 12/01/2017 CLIFF CUELLAR N Ot D72.820 LYMPHOCYTOSIS (SYMPTOMATIC) 12/01/2017 CLIFF CUELLAR Ot R59.1 GENERALIZED ENLARGED LYMPH NODES 01/08/2018 JARRETT CALLE MD Ot M17.0 BILATERAL PRIMARY OSTEOARTHRITIS OF KNEE 01/08/2018 JARRETT CALLE MD Ot Z96.652 PRESENCE OF LEFT ARTIFICIAL KNEE JOINT 01/11/2018 CLIFF CUELLAR N Ot D64.9 ANEMIA, UNSPECIFIED 01/11/2018 CLIFF CUELLAR N Ot D72.820 LYMPHOCYTOSIS (SYMPTOMATIC) 01/11/2018 CLIFF CUELLAR N Ot E11.9 TYPE 2 DIABETES MELLITUS WITHOUT COMPLIC 01/11/2018 CLIFF CUELLAR N Ot I10 ESSENTIAL (PRIMARY) HYPERTENSION 01/11/2018 CLIFF CUELLAR Ot Z79.4 SNF (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 OF INSULIN 01/11/2018 CLIFF CUELLAR N Ot Z79.82 SNF (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 OF ASPIRIN 01/11/2018 CLIFF CUELLAR N Ot Z79.899 OTHER SNF (CURRENT) DRUG THERAPY 01/11/2018 CLIFF CUELLAR N Ot Z96.6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, BILAT 01/24/2018 JARRETT CALLE MD Ot M17.0 BILATERAL PRIMARY OSTEOARTHRITIS OF KNEE 01/24/2018 JARRETT CALLE MD Ot Z96.652 PRESENCE OF LEFT ARTIFICIAL KNEE JOINT 01/31/2018 CLIFF CUELLAR N Ot D64.9 ANEMIA, UNSPECIFIED 01/31/2018 CLIFF CUELLAR N Ot D72.820 LYMPHOCYTOSIS (SYMPTOMATIC) 01/31/2018 CLIFF CUELLAR N Ot E11.9 TYPE 2 DIABETES MELLITUS WITHOUT COMPLIC 01/31/2018 POLO, BOBAN N Ot I10 ESSENTIAL (PRIMARY) HYPERTENSION 01/31/2018 POLOCLIFF N Ot Z79.4 SNF (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 OF INSULIN 01/31/2018 POLOVANDANAAN N Ot Z79.82 POCKET GRINDER OPERATOR (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 OF ASPIRIN 01/31/2018 POLO, BOBAN N Ot Z79.899 OTHER POCKET GRINDER OPERATOR (CURRENT) DRUG THERAPY 01/31/2018 POLOVANDANAAN N Ot Z96.6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, BILAT 02/01/2018 POLO BOBAN N Ot D64.9 ANEMIA, UNSPECIFIED 02/01/2018 POLO, BOBAN N Ot D72.820 LYMPHOCYTOSIS (SYMPTOMATIC) 02/01/2018 POLO BOBAN N Ot E11.9 TYPE 2 DIABETES MELLITUS WITHOUT COMPLIC 02/01/2018 POLO BOBAN N Ot I10 ESSENTIAL (PRIMARY) HYPERTENSION 02/01/2018 POLO BOBAN N Ot Z79.4 SNF (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 OF INSULIN 02/01/2018 POLO BOBAN N Ot Z79.82 SNF (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 OF ASPIRIN 02/01/2018 POLO BOBAN N Ot Z79.899 OTHER POCKET GRINDER OPERATOR (CURRENT) DRUG THERAPY 02/01/2018 POLO BOBAN N Ot Z96.6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, BILAT 03/12/2018 POLO BOBAN N Ot D64.9 ANEMIA, UNSPECIFIED 03/12/2018 POLO, BOBAN N Ot D72.820 LYMPHOCYTOSIS (SYMPTOMATIC) 03/12/2018 POLO BOBAN N Ot E11.9 TYPE 2 DIABETES MELLITUS WITHOUT COMPLIC 03/12/2018 POLO BOBAN N Ot I10 ESSENTIAL (PRIMARY) HYPERTENSION 03/12/2018 POLO BOBAN N Ot Z79.4 POCKET GRINDER OPERATOR (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 OF INSULIN 03/12/2018 POLO, BOBAN N Ot Z79.82 POCKET GRINDER OPERATOR (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 OF ASPIRIN 03/12/2018 POLO, BOBAN N Ot Z79.899 OTHER POCKET GRINDER OPERATOR (CURRENT) DRUG THERAPY 03/12/2018 POLO, BOBAN N Ot Z96.6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, BILAT 04/02/2018 POLO BOBAN N Ot D64.9 ANEMIA, UNSPECIFIED 04/02/2018 POLO, BOBAN N Ot D72.820 LYMPHOCYTOSIS (SYMPTOMATIC) 04/02/2018 CLIFF CUELLAR Ot E11.9 TYPE 2 DIABETES MELLITUS WITHOUT COMPLIC 04/02/2018 CLIFF CUELLAR Ot I10 ESSENTIAL (PRIMARY) HYPERTENSION 04/02/2018 CLIFF CUELLAR Ot Z79.4 SNF (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 OF INSULIN 04/02/2018 CLIFF CUELLAR Ot Z79.82 SNF (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 OF ASPIRIN 04/02/2018 CLIFF CUELLAR Pranay Ot Z79.899 OTHER SNF (CURRENT) DRUG THERAPY 04/02/2018 CLIFF CUELLAR Ot Z96.6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, BILAT 04/04/2018 LISA PICKARD AUTO JOB ESTIMATOR Ot C91.10 CHRONIC LYMPHOCYTIC LEUK OF B-CELL TYPE 04/06/2018 PICKARDLISA Cope AUTO JOB ESTIMATOR Ot C91.10 CHRONIC LYMPHOCYTIC LEUK OF B-CELL TYPE 04/08/2018 PICKARDLISA CopeP Ot C91.10 CHRONIC LYMPHOCYTIC LEUK OF B-CELL TYPE 04/13/2018 SUSY ROTHMAN DO Ot Z01.818 ENCOUNTER FOR OTHER PREPROCEDURAL EXAMIN Procedures Code Description [place] [address] A1C (IN-HOUSE) 05/15/2012 56398 ROUTINE VENIPUNCTURE 05/25/2012 51918 CBC 05/25/2012 72488 CMP 05/25/2012 92337 LIPID PANEL 05/25/2012 3702782 GFR CALC (RESULT ONLY) 05/25/2012 67687 GASTRIN 05/28/2012 65445 A1C (IN-HOUSE) 09/04/2012 10230 A1C (IN-HOUSE) 12/12/2012 68945 MICRO ALBUMIN-IN HOUSE 12/12/2012 78125 MICROALBUMIN 12/12/2012 52765 A1C (IN-HOUSE) 04/01/2013 05911 A1C (IN-HOUSE) 07/15/2013 74389 A1C (IN-HOUSE) 11/15/2013 07853 ROUTINE VENIPUNCTURE 11/20/2013 45478 CBC 11/20/2013 8977157 GFR CALC (RESULT ONLY) 11/20/2013 11878 CMP 11/20/2013 54536 LIPID PANEL 11/20/2013 10276 MICRO ALBUMIN-IN HOUSE 02/17/2014 92894 A1C (IN-HOUSE) 02/17/2014 59672 MICROALBUMIN 02/17/2014 [id number] 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, RICHARD 07/19/2017 [id number] REPLACE OF R KNEE JT WITH SYNTH SUB, RICHARD 09/20/2017 Results Test Result Range CBC With Differential/Platelet [...] ABO+Rh group OP NRG Transfusion band number [id number] NRG Blood group antibody screen NEGATIVE NRG Capillary blood glucose measurement by glucometer [...] blood basophil count (count/volume) 0.0 10*3/uL 0.0-0.1 Blood blood smear finding identification by light microscopy NR Erythrocyte sedimentation rate by westergren method - [...] ABO+Rh group OP NRG Transfusion band number [id number] NRG Blood group antibody screen NEGATIVE NRG Blood lymphocytes count by flow cytometry (number/volume) - 09/19/17 13:50 Pathology consultation and report [id number] Capillary blood glucose measurement by glucometer (mass/volume) - 09/20/17 06: 16 Capillary blood glucose measurement by glucometer (mass/volume) 147 mg/dL 70-110 Capillary blood glucose measurement by glucometer (mass/volume) - 09/20/17 15: 56 Capillary blood glucose measurement by glucometer (mass/volume) 199 mg/dL 70-110 Hemoglobin A1c - 09/20/17 19:30 Blood hemoglobin A1C measurement (mass/volume) 6.1 % 4.0- 5.6 MEAN BLOOD GLUCOSE 128 % <=126 Capillary blood glucose measurement by glucometer (mass/volume) - 09/20/17 20: 49 Capillary blood glucose measurement by glucometer (mass/volume) 194 mg/dL 70-110 Capillary blood glucose measurement by glucometer (mass/volume) - 09/21/17 05: 16 Capillary blood glucose measurement by glucometer (mass/volume) 233 mg/dL 70-110 Whole blood hemoglobin and hematocrit panel - 09/21/17 05:58 Venous blood hemoglobin measurement (mass/volume) 9.8 g/dL 13.3-17.7 Blood hematocrit (volume fraction) 29 % 40-54 Comprehensive metabolic panel - 09/21/17 05:58 Serum or plasma sodium measurement (moles/volume) 134 mmol/L 135-145 Serum or plasma potassium measurement (moles/volume) 4.3 mmol/L 3.6-5.0 Serum or plasma chloride measurement (moles/volume) 103 mmol/L 98-107 Carbon dioxide 23 mmol/L 21-32 Serum or plasma anion gap determination (moles/volume) 8 mmol/L 5-14 Serum or plasma urea nitrogen measurement (mass/volume) 13 mg/dL 7-18 Serum or plasma creatinine measurement (mass/volume) 0.77 mg/dL 0.60-1.30 Serum or plasma urea nitrogen/creatinine mass ratio 17 NRG Serum or plasma creatinine measurement with calculation of estimated glomerular filtration rate > NRG Serum or plasma glucose measurement (mass/volume) 204 mg/dL 70-105 Serum or plasma calcium measurement (mass/volume) 8.6 mg/dL 8.5-10.1 Serum or plasma total bilirubin measurement (mass/volume) 0.7 mg/dL 0.1-1.0 Serum or plasma alkaline phosphatase measurement (enzymatic activity/volume) 94 U/L 40-136 Serum or plasma aspartate aminotransferase measurement (enzymatic activity/ volume) 14 U/L 5-34 Serum or plasma alanine aminotransferase measurement (enzymatic activity/volume ) 17 U/L 0-55 Serum or plasma protein measurement (mass/volume) 5.9 g/dL 6.4-8.2 Serum or plasma albumin measurement (mass/volume) 3.6 g/dL 3.2-4.5 Capillary blood glucose measurement by glucometer (mass/volume) - 09/21/17 10: 53 Capillary blood glucose measurement by glucometer (mass/volume) 257 mg/dL 70-110 Capillary blood glucose measurement by glucometer (mass/volume) - 09/21/17 16: 28 Capillary blood glucose measurement by glucometer (mass/volume) 198 mg/dL 70-110 Capillary blood glucose measurement by glucometer (mass/volume) - 09/21/17 20: 56 Capillary blood glucose measurement by glucometer (mass/volume) 234 mg/dL 70-110 Capillary blood glucose measurement by glucometer (mass/volume) - 09/22/17 05: 25 Capillary blood glucose measurement by glucometer (mass/volume) 175 mg/dL 70-110 Whole blood hemoglobin and hematocrit panel - 09/22/17 05:53 Venous blood hemoglobin measurement (mass/volume) 8.9 g/dL 13.3-17.7 Blood hematocrit (volume fraction) 26 % 40-54 Capillary blood glucose measurement by glucometer (mass/volume) - 09/22/17 11: 03 Capillary blood glucose measurement by glucometer (mass/volume) 217 mg/dL 70-110 Capillary blood glucose measurement by glucometer (mass/volume) - 09/22/17 16: 04 Capillary blood glucose measurement by glucometer (mass/volume) 168 mg/dL 70-110 Capillary blood glucose measurement by glucometer (mass/volume) - 09/22/17 20: 58 Capillary blood glucose measurement by glucometer (mass/volume) 256 mg/dL 70-110 Capillary blood glucose measurement by glucometer (mass/volume) - 09/23/17 05: 08 Capillary blood glucose measurement by glucometer (mass/volume) 174 mg/dL 70-110 Complete blood count (CBC) with automated white blood cell (WBC) differential - 09/23/17 05:40 Blood leukocytes automated count (number/volume) 9.7 10*3/uL 4.3-11.0 Blood erythrocytes automated count (number/volume) 2.77 10*6/uL 4.35-5.85 Venous blood hemoglobin measurement (mass/volume) 8.5 g/dL 13.3-17.7 Blood hematocrit (volume fraction) 25 % 40-54 Automated erythrocyte mean corpuscular volume 90 [foz_us] 80-99 Automated erythrocyte mean corpuscular hemoglobin (mass per erythrocyte) 31 pg 25-34 Automated erythrocyte mean corpuscular hemoglobin concentration measurement ( mass/volume) 34 g/dL 32-36 Automated erythrocyte distribution width ratio 14.2 % 10.0-14.5 Automated blood platelet count (count/volume) 221 10*3/uL 130-400 Automated blood platelet mean volume measurement 10.0 [foz_us] 7.4-10.4 Automated blood neutrophils/100 leukocytes 45 % 42-75 Automated blood lymphocytes/100 leukocytes 48 % 12-44 Blood monocytes/100 leukocytes 6 % 0-12 Automated blood eosinophils/100 leukocytes 1 % 0-10 Automated blood basophils/100 leukocytes 0 % 0-10 Blood neutrophils automated count (number/volume) 4.4 10*3 1.8-7.8 Blood lymphocytes automated count (number/volume) 4.6 10*3 1.0-4.0 Blood monocytes automated count (number/volume) 0.6 10*3 0.0-1.0 Automated eosinophil count 0.1 10*3/uL 0.0-0.3 Automated blood basophil count (count/volume) 0.0 10*3/uL 0.0-0.1 Whole blood basic metabolic panel - 09/23/17 05:40 Serum or plasma sodium measurement (moles/volume) 132 mmol/L 135-145 Serum or plasma potassium measurement (moles/volume) 3.5 mmol/L 3.6-5.0 Serum or plasma chloride measurement (moles/volume) 100 mmol/L 98-107 Carbon dioxide 23 mmol/L 21-32 Serum or plasma anion gap determination (moles/volume) 9 mmol/L 5-14 Serum or plasma urea nitrogen measurement (mass/volume) 17 mg/dL 7-18 Serum or plasma creatinine measurement (mass/volume) 0.72 mg/dL 0.60-1.30 Serum or plasma urea nitrogen/creatinine mass ratio 24 NRG Serum or plasma creatinine measurement with calculation of estimated glomerular filtration rate > NRG Serum or plasma glucose measurement (mass/volume) 154 mg/dL 70-105 Serum or plasma calcium measurement (mass/volume) 8.7 mg/dL 8.5-10.1 * Reference lab test name - 12/18/17 11:30 * Reference lab test results B CELL CLL BONE MAR NRG Capillary blood glucose measurement by glucometer (mass/volume) - 04/18/18 08: 18 Capillary blood glucose measurement by glucometer (mass/volume) 149 mg/dL 70-110 Encounters ACCT No. Visit Date/Time Discharge Status Pt. Type Provider Facility Loc./Unit Complaint [id number] 04/25/2014 09:09:00 04/25/2014 23:59:59 CLS Outpatient ADAM DRAPER DO [id number] 03/21/2014 10:20:00 03/21/2014 23:59:59 CLS Outpatient SHADIA BLAIR APRN [id number] 02/17/2014 10:13:00 02/17/2014 23:59:59 CLS Outpatient SHADIA BLAIR APRN [id number] 12/16/2013 09:09:00 12/16/2013 23:59:59 CLS Outpatient SHADIA BLAIR APRN [id number] 11/20/2013 08:07:00 11/20/2013 23:59:59 CLS Outpatient SHADIA BLAIR APRN [id number] 11/15/2013 12:13:00 11/15/2013 23:59:59 CLS Outpatient SHADIA BLAIR APRN [id number] 07/15/2013 09:15:00 07/15/2013 23:59:59 CLS Outpatient BONNY HOLLYADAM [id number] 05/03/2013 08:48:00 05/03/2013 23:59:59 CLS Outpatient ZOE REED MD [id number] 04/01/2013 10:04:00 04/01/2013 23:59:59 CLS Outpatient SHADIA BLAIR APRN [id number] 01/25/2013 08:54:00 01/25/2013 23:59:59 CLS Outpatient DRAPER ADAM HOLLY [id number] 12/26/2012 10:43:00 12/26/2012 23:59:59 CLS Outpatient SHADIA BLAIR APRN [id number] 12/12/2012 14:22:00 12/12/2012 23:59:59 CLS Outpatient SHADIA BLAIR APRN [id number] 09/04/2012 14:22:00 09/04/2012 23:59:59 CLS Outpatient BONNY HOLLY ADAM K [id number] 05/30/2012 16:04:00 05/30/2012 23:59:59 CLS Outpatient [id number] 05/25/2012 08:09:00 05/25/2012 23:59:59 CLS Outpatient SHADIA BLAIR APRN [id number] 05/15/2012 14:05:00 05/15/2012 23:59:59 CLS Outpatient [id number] 02/08/2012 10:02:00 02/08/2012 23:59:59 CLS Outpatient [id number] 01/11/2012 11:51:00 01/11/2012 23:59:59 CLS Outpatient SHADIA BLAIR APRN [id number] 06/27/2012 10:09:00 Document Registration [id number] 04/13/2018 05:33:00 04/13/2018 14:59:00 DIS Outpatient SUSY ROTHMAN DO [facility] PREOP GENERALIZED ENLARGED LYMPH NODES, CLL [id number] 04/09/2018 09:10:00 04/09/2018 23:59:59 CLS Outpatient CLIFF CUELLAR [facility] ONC [id number] 04/04/2018 09:55:00 04/04/2018 23:59:59 CLS Outpatient LISA PICKARD [facility] RAD IMAGING STUDY TO RESTAGE NEOPLASM [id number] 01/29/2018 08:55:00 01/31/2018 00:01:00 DIS Outpatient CLIFF CUELLAR [facility] ONC [id number] 01/02/2018 12:42:00 01/02/2018 23:59:59 CLS Outpatient JARRETT CALLE MD [facility] RAD 715.16 M17.0 [id number] 11/10/2017 11:23:00 11/10/2017 12:49:00 DIS Outpatient JARRETT CALLE MD [facility] REHAB L TKA [id number] 11/07/2017 14:25:00 11/07/2017 23:59:59 CLS Outpatient CLIFF CUELLAR [facility] RAD LYMPHOCYTOSIS, LYMPHADENOPATHY [id number] 09/20/2017 05:51:00 09/23/2017 11:10:00 DIS Inpatient JARRETT CALLE MD [facility] 4TH OSTEOARTHRITIS RIGHT KNEE [id number] 09/19/2017 13:29:00 09/19/2017 23:59:59 CLS Outpatient TR FAY MD [facility] LAB CLL [id number] 09/19/2017 08:00:00 09/19/2017 09:53:00 DIS Outpatient JARRETT CALLE MD [facility] REHAB L TKA; BILATERAL PRIMARY OA OF KNEE [id number] 09/12/2017 13:20:00 09/12/2017 13:55:00 DIS Outpatient JARRETT CALLE MD [facility] PREOP OSTEOARTHRITIS RIGHT KNEE [id number] 07/19/2017 06:00:00 07/22/2017 12:00:00 DIS Inpatient JARRETT CALLE MD [facility] 4TH LEFT KNEE OSTEOARTHRITIS [id number] 07/12/2017 10:04:00 07/12/2017 11:10:00 DIS Outpatient JARRETT CALLE MD [facility] PREOP LEFT TOTAL KNEE REPLACEMENT [id number] 04/18/2018 07:59:00 ACT Outpatient SUSY ROTHMAN DO [facility] SDC GENERALIZED ENLARGED LYMPH NODES, CLL [id number] 07/16/2016 11:06:00 Document Registration [id number] 09/11/2017 11:00:00 09/11/2017 23:59:59 CLS Outpatient SHADIA BLAIR APRN [facility]
[2018-04-18 11:45] VITALS: BP 121/66
[2018-04-18 12:20] VITALS: BP 121/66
--- NOTE | 2018-04-18 13:02 | OPERATIVE REPORT ---
DATE OF SERVICE: PREOPERATIVE DIAGNOSES: 1. Chronic lymphocytic leukemia. 2. Generalized lymphadenopathy. POSTOPERATIVE DIAGNOSES: 1. Chronic lymphocytic leukemia. 2. Generalized lymphadenopathy. PROCEDURE: Excision of left inguinal lymph nodes. SURGEON: Franklyn Pulliam DO. RODDING ANODE WORKER: None. ANESTHESIA: LMA. SPECIMEN: Two large left inguinal lymph nodes. BLOOD LOSS: Scant. FLUIDS: Per anesthesia. POSTOPERATIVE CONDITION: Stable. INDICATION FOR PROCEDURE: The patient is a 68-year-old male who unfortunately has chronic lymphocytic leukemia and the chemotherapy may not be working. Lymph nodes are not improving and the oncologist wanted lymph node samples to be sent to pathology. FINDINGS: The patient had 2 large left inguinal lymph nodes removed and sent to pathology. PROCEDURE NOTE: After informed consent was obtained, the patient was brought to the operating room, placed on the table in supine position, sterilely prepped and draped in normal fashion. Local lidocaine was used to infiltrate the skin directly above the lymph node that could be palpated. They were just above the inguinal crease, infiltrated with about 10 mL of local, then made an incision with #15 blade, carried down through the skin into subcutaneous tissue then deep down through subcutaneous tissue with Bovie electrocautery down to the top of the lymph nodes, then able to dissect around with the Bovie electrocautery, removed one large lymph node, little bit of bleeding from a small vessel. This was grasped with a DeBakey and then cauterized, found another larger lymph node removed and sent to pathology, also obtained hemostasis with Bovie electrocautery. Copiously irrigated with normal saline, suctioned this out. No bleeding at the end of the case, at this point, then elected to close the incision, closing the deep tissue, the Cristo's fascia with 3-0 Vicryl, 2 interrupted suture and then closed the skin with a 4-0 undyed Monocryl running subcuticular fashion. Area was cleaned and dried. Dermabond placed as well as pressure dressing. The patient then transferred to recovery room in stable condition. Sponge, instrument and needle count correct at the end of the case. Job ID: [id number] DocumentID: [id number] Dictated Date: 04/18/2018 11:19:45 Certified Wellness Program Manager Date: 04/18/2018 13:01:56 Dictated By: FRANKLYN PULLIAM DO
--- NOTE | 2018-04-18 14:51 | Anesthesia-General Post-Op ---
General Patient Condition Mental Status/LOC: Same as Preop Cardiovascular: Satisfactory Nausea/Vomiting: Absent Respiratory: Satisfactory Pain: Controlled Complications: Absent Post Op Complications Complications None Follow Up Care/Instructions Patient Instructions None needed. Anesthesia/Patient Condition Patient Condition Patient was seen after the procedure and he was doing well, no complaints, stable vital signs, no apparent adverse anesthesia problems. CAROLINA WHITMORE DO Apr 18, 2018 14:51
== END 2018-04-18 12:25 | disposition home or self-care (01) ==
LOC: SDC 07:59
PROVIDERS: ATTEND Surgery
DX: C91.10 Chronic lymphocytic leukemia of B-cell type not having achieved remission (principal); R59.1 Generalized enlarged lymph nodes; Z11.2 Encounter for screening for other bacterial diseases; E11.40 Type 2 diabetes mellitus with diabetic neuropathy, unspecified; I10 Essential (primary) hypertension; E78.5 Hyperlipidemia, unspecified; Z96.653 Presence of artificial knee joint, bilateral; E66.01 Morbid (severe) obesity due to excess calories; Z68.39 Body mass index [BMI] 39.0-39.9, adult; Z79.82 Long term (current) use of aspirin; Z79.4 Long term (current) use of insulin; Z79.899 Other long term (current) drug therapy
CPT/HCPCS: 82962; 87081

== ENCOUNTER 2018-04-25 10:12 | Outpatient (RCR) | payer MEDICARE, OTHER ==
[2018-02-05 09:56] LABS: BASOPHILS % (AUTO) 0 % (0-10); EOSINOPHILS # (AUTO) 0.2 10^3/uL (0.0-0.3); EOSINOPHILS % (AUTO) 2 % (0-10); HEMATOCRIT 34 % (40-54); HEMOGLOBIN 11.2 G/DL (13.3-17.7); LYMPHOCYTES # (AUTO) 5.3 X 10^3 (1.0-4.0); LYMPHOCYTES % (AUTO) 53 % (12-44); MEAN CORPUSCULAR HEMOGLOBIN 29 PG (25-34); MEAN CORPUSCULAR HGB CONC 33 G/DL (32-36); MEAN CORPUSCULAR VOLUME 86 FL (80-99); MEAN PLATELET VOLUME 9.7 FL (7.4-10.4); MONOCYTES # (AUTO) 0.5 X 10^3 (0.0-1.0); MONOCYTES % (AUTO) 5 % (0-12); NEUTROPHILS % (AUTO) 40 % (42-75); PLATELET COUNT 219 10^3/uL (130-400)
[2018-02-05 10:14] LABS: BUN/CREATININE RATIO 20; CALCIUM 9.3 MG/DL (8.5-10.1); CARBON DIOXIDE 25 MMOL/L (21-32); CHLORIDE 100 MMOL/L (98-107); CREATININE SERUM 0.86 MG/DL (0.60-1.30); GFR ESTIMATED > 60; GLUCOSE 172 MG/DL (70-105); POTASSIUM 4.2 MMOL/L (3.6-5.0); SODIUM 134 MMOL/L (135-145)
[2018-02-12 09:12] LABS: BASOPHILS % (AUTO) 0 % (0-10); EOSINOPHILS # (AUTO) 0.2 10^3/uL (0.0-0.3); EOSINOPHILS % (AUTO) 1 % (0-10); HEMATOCRIT 34 % (40-54); HEMOGLOBIN 11.3 G/DL (13.3-17.7); LYMPHOCYTES # (AUTO) 5.9 X 10^3 (1.0-4.0); LYMPHOCYTES % (AUTO) 50 % (12-44); MEAN CORPUSCULAR HEMOGLOBIN 29 PG (25-34); MEAN CORPUSCULAR HGB CONC 34 G/DL (32-36); MEAN CORPUSCULAR VOLUME 86 FL (80-99); MEAN PLATELET VOLUME 9.5 FL (7.4-10.4); MONOCYTES # (AUTO) 0.4 X 10^3 (0.0-1.0); MONOCYTES % (AUTO) 4 % (0-12); NEUTROPHILS # (AUTO) 5.3 X 10^3 (1.8-7.8); NEUTROPHILS % (AUTO) 45 % (42-75); PLATELET COUNT 279 10^3/uL (130-400); RED CELL DISTRIBUTION WIDTH 14.1 % (10.0-14.5); WHITE BLOOD COUNT 11.8 10^3/uL (4.3-11.0)
[2018-02-12 09:42] LABS: ALANINE AMINOTRANSFERASE 13 U/L (0-55); ALKALINE PHOSPHATASE 104 U/L (40-136); BILIRUBIN,TOTAL 0.6 MG/DL (0.1-1.0); BUN/CREATININE RATIO 21; CALCIUM 9.2 MG/DL (8.5-10.1); CARBON DIOXIDE 23 MMOL/L (21-32); CHLORIDE 102 MMOL/L (98-107); CREATININE SERUM 0.86 MG/DL (0.60-1.30); GFR ESTIMATED > 60; GLUCOSE 142 MG/DL (70-105); POTASSIUM 3.9 MMOL/L (3.6-5.0); SODIUM 135 MMOL/L (135-145); TOTAL PROTEIN 6.5 GM/DL (6.4-8.2)
[2018-02-19 09:25] LABS: BASOPHILS % (AUTO) 0 % (0-10); EOSINOPHILS # (AUTO) 0.2 10^3/uL (0.0-0.3); EOSINOPHILS % (AUTO) 1 % (0-10); HEMATOCRIT 36 % (40-54); HEMOGLOBIN 11.7 G/DL (13.3-17.7); LYMPHOCYTES # (AUTO) 4.8 X 10^3 (1.0-4.0); LYMPHOCYTES % (AUTO) 44 % (12-44); MEAN CORPUSCULAR HEMOGLOBIN 28 PG (25-34); MEAN CORPUSCULAR HGB CONC 33 G/DL (32-36); MEAN CORPUSCULAR VOLUME 86 FL (80-99); MEAN PLATELET VOLUME 9.6 FL (7.4-10.4); MONOCYTES # (AUTO) 0.4 X 10^3 (0.0-1.0); MONOCYTES % (AUTO) 4 % (0-12); NEUTROPHILS # (AUTO) 5.5 X 10^3 (1.8-7.8); NEUTROPHILS % (AUTO) 51 % (42-75); PLATELET COUNT 329 10^3/uL (130-400); RED CELL DISTRIBUTION WIDTH 13.9 % (10.0-14.5)
[2018-02-19 09:42] LABS: BUN/CREATININE RATIO 23; CALCIUM 9.5 MG/DL (8.5-10.1); CARBON DIOXIDE 24 MMOL/L (21-32); CHLORIDE 101 MMOL/L (98-107); CREATININE SERUM 0.86 MG/DL (0.60-1.30); GFR ESTIMATED > 60; GLUCOSE 121 MG/DL (70-105); POTASSIUM 4.8 MMOL/L (3.6-5.0); SODIUM 136 MMOL/L (135-145)
[2018-02-28 10:58] LABS: BASOPHILS % (AUTO) 0 % (0-10); EOSINOPHILS # (AUTO) 0.2 10^3/uL (0.0-0.3); EOSINOPHILS % (AUTO) 2 % (0-10); HEMATOCRIT 34 % (40-54); HEMOGLOBIN 11.7 G/DL (13.3-17.7); LYMPHOCYTES # (AUTO) 4.6 X 10^3 (1.0-4.0); LYMPHOCYTES % (AUTO) 43 % (12-44); MEAN CORPUSCULAR HEMOGLOBIN 29 PG (25-34); MEAN CORPUSCULAR HGB CONC 34 G/DL (32-36); MEAN CORPUSCULAR VOLUME 85 FL (80-99); MEAN PLATELET VOLUME 9.7 FL (7.4-10.4); MONOCYTES # (AUTO) 0.5 X 10^3 (0.0-1.0); MONOCYTES % (AUTO) 5 % (0-12); NEUTROPHILS # (AUTO) 5.4 X 10^3 (1.8-7.8); NEUTROPHILS % (AUTO) 50 % (42-75); PLATELET COUNT 344 10^3/uL (130-400); WHITE BLOOD COUNT 10.7 10^3/uL (4.3-11.0)
[2018-02-28 11:18] LABS: BUN/CREATININE RATIO 23; CALCIUM 9.2 MG/DL (8.5-10.1); CARBON DIOXIDE 23 MMOL/L (21-32); CHLORIDE 104 MMOL/L (98-107); CREATININE SERUM 0.84 MG/DL (0.60-1.30); GFR ESTIMATED > 60; GLUCOSE 158 MG/DL (70-105); POTASSIUM 4.3 MMOL/L (3.6-5.0); SODIUM 137 MMOL/L (135-145)
[2018-03-05 09:38] LABS: BASOPHILS % (AUTO) 0 % (0-10); EOSINOPHILS # (AUTO) 0.2 10^3/uL (0.0-0.3); EOSINOPHILS % (AUTO) 2 % (0-10); HEMATOCRIT 34 % (40-54); HEMOGLOBIN 11.3 G/DL (13.3-17.7); LYMPHOCYTES # (AUTO) 4.2 X 10^3 (1.0-4.0); LYMPHOCYTES % (AUTO) 45 % (12-44); MEAN CORPUSCULAR HEMOGLOBIN 28 PG (25-34); MEAN CORPUSCULAR HGB CONC 34 G/DL (32-36); MEAN CORPUSCULAR VOLUME 84 FL (80-99); MEAN PLATELET VOLUME 9.7 FL (7.4-10.4); MONOCYTES # (AUTO) 0.6 X 10^3 (0.0-1.0); MONOCYTES % (AUTO) 6 % (0-12); NEUTROPHILS # (AUTO) 4.5 X 10^3 (1.8-7.8); NEUTROPHILS % (AUTO) 47 % (42-75); PLATELET COUNT 283 10^3/uL (130-400); RED CELL DISTRIBUTION WIDTH 13.8 % (10.0-14.5); WHITE BLOOD COUNT 9.5 10^3/uL (4.3-11.0)
[2018-03-05 09:57] LABS: BUN/CREATININE RATIO 19; CALCIUM 9.2 MG/DL (8.5-10.1); CARBON DIOXIDE 21 MMOL/L (21-32); CHLORIDE 101 MMOL/L (98-107); CREATININE SERUM 0.95 MG/DL (0.60-1.30); GFR ESTIMATED > 60; GLUCOSE 129 MG/DL (70-105); POTASSIUM 4.4 MMOL/L (3.6-5.0); SODIUM 135 MMOL/L (135-145)
[2018-03-12 09:59] LABS: BASOPHILS % (AUTO) 0 % (0-10); EOSINOPHILS # (AUTO) 0.2 10^3/uL (0.0-0.3); EOSINOPHILS % (AUTO) 2 % (0-10); HEMATOCRIT 34 % (40-54); HEMOGLOBIN 11.5 G/DL (13.3-17.7); LYMPHOCYTES # (AUTO) 4.1 X 10^3 (1.0-4.0); LYMPHOCYTES % (AUTO) 44 % (12-44); MEAN CORPUSCULAR HEMOGLOBIN 29 PG (25-34); MEAN CORPUSCULAR HGB CONC 34 G/DL (32-36); MEAN CORPUSCULAR VOLUME 85 FL (80-99); MEAN PLATELET VOLUME 9.8 FL (7.4-10.4); MONOCYTES # (AUTO) 0.4 X 10^3 (0.0-1.0); MONOCYTES % (AUTO) 5 % (0-12); NEUTROPHILS # (AUTO) 4.7 X 10^3 (1.8-7.8); NEUTROPHILS % (AUTO) 50 % (42-75); PLATELET COUNT 264 10^3/uL (130-400); RED CELL DISTRIBUTION WIDTH 13.9 % (10.0-14.5); WHITE BLOOD COUNT 9.4 10^3/uL (4.3-11.0)
[2018-03-12 10:26] LABS: ALANINE AMINOTRANSFERASE 14 U/L (0-55); ALKALINE PHOSPHATASE 106 U/L (40-136); BILIRUBIN,TOTAL 0.4 MG/DL (0.1-1.0); BUN/CREATININE RATIO 18; CALCIUM 9.4 MG/DL (8.5-10.1); CARBON DIOXIDE 24 MMOL/L (21-32); CHLORIDE 100 MMOL/L (98-107); CREATININE SERUM 0.88 MG/DL (0.60-1.30); GFR ESTIMATED > 60; GLUCOSE 112 MG/DL (70-105); SODIUM 135 MMOL/L (135-145); TOTAL PROTEIN 6.9 GM/DL (6.4-8.2)
[2018-03-19 09:08] LABS: BASOPHILS % (AUTO) 0 % (0-10); EOSINOPHILS # (AUTO) 0.2 10^3/uL (0.0-0.3); EOSINOPHILS % (AUTO) 2 % (0-10); HEMATOCRIT 32 % (40-54); HEMOGLOBIN 10.9 G/DL (13.3-17.7); LYMPHOCYTES # (AUTO) 3.7 X 10^3 (1.0-4.0); LYMPHOCYTES % (AUTO) 46 % (12-44); MEAN CORPUSCULAR HEMOGLOBIN 29 PG (25-34); MEAN CORPUSCULAR HGB CONC 34 G/DL (32-36); MEAN CORPUSCULAR VOLUME 86 FL (80-99); MONOCYTES # (AUTO) 0.4 X 10^3 (0.0-1.0); MONOCYTES % (AUTO) 5 % (0-12); NEUTROPHILS # (AUTO) 3.8 X 10^3 (1.8-7.8); NEUTROPHILS % (AUTO) 47 % (42-75); PLATELET COUNT 273 10^3/uL (130-400); RED CELL DISTRIBUTION WIDTH 14.5 % (10.0-14.5)
[2018-03-19 09:26] LABS: BUN/CREATININE RATIO 22; CALCIUM 8.8 MG/DL (8.5-10.1); CARBON DIOXIDE 23 MMOL/L (21-32); CHLORIDE 101 MMOL/L (98-107); CREATININE SERUM 0.82 MG/DL (0.60-1.30); GFR ESTIMATED > 60; GLUCOSE 163 MG/DL (70-105); SODIUM 136 MMOL/L (135-145)
[2018-03-26 09:19] LABS: BASOPHILS % (AUTO) 1 % (0-10); EOSINOPHILS # (AUTO) 0.2 10^3/uL (0.0-0.3); EOSINOPHILS % (AUTO) 2 % (0-10); HEMATOCRIT 34 % (40-54); HEMOGLOBIN 11.4 G/DL (13.3-17.7); LYMPHOCYTES # (AUTO) 3.7 X 10^3 (1.0-4.0); LYMPHOCYTES % (AUTO) 45 % (12-44); MEAN CORPUSCULAR HEMOGLOBIN 29 PG (25-34); MEAN CORPUSCULAR HGB CONC 33 G/DL (32-36); MEAN CORPUSCULAR VOLUME 86 FL (80-99); MEAN PLATELET VOLUME 9.4 FL (7.4-10.4); MONOCYTES # (AUTO) 0.4 X 10^3 (0.0-1.0); MONOCYTES % (AUTO) 5 % (0-12); NEUTROPHILS # (AUTO) 3.9 X 10^3 (1.8-7.8); NEUTROPHILS % (AUTO) 47 % (42-75); PLATELET COUNT 238 10^3/uL (130-400); RED CELL DISTRIBUTION WIDTH 14.3 % (10.0-14.5); WHITE BLOOD COUNT 8.2 10^3/uL (4.3-11.0)
[2018-03-26 09:37] LABS: BUN/CREATININE RATIO 18; CALCIUM 8.8 MG/DL (8.5-10.1); CARBON DIOXIDE 23 MMOL/L (21-32); CHLORIDE 103 MMOL/L (98-107); CREATININE SERUM 0.85 MG/DL (0.60-1.30); GFR ESTIMATED > 60; GLUCOSE 145 MG/DL (70-105); POTASSIUM 4.3 MMOL/L (3.6-5.0); SODIUM 135 MMOL/L (135-145)
[2018-04-02 10:04] LABS: BASOPHILS % (AUTO) 0 % (0-10); EOSINOPHILS # (AUTO) 0.2 10^3/uL (0.0-0.3); EOSINOPHILS % (AUTO) 3 % (0-10); HEMATOCRIT 35 % (40-54); LYMPHOCYTES # (AUTO) 3.2 X 10^3 (1.0-4.0); LYMPHOCYTES % (AUTO) 43 % (12-44); MEAN CORPUSCULAR HEMOGLOBIN 29 PG (25-34); MEAN CORPUSCULAR HGB CONC 34 G/DL (32-36); MEAN CORPUSCULAR VOLUME 85 FL (80-99); MEAN PLATELET VOLUME 9.8 FL (7.4-10.4); MONOCYTES # (AUTO) 0.4 X 10^3 (0.0-1.0); MONOCYTES % (AUTO) 6 % (0-12); NEUTROPHILS # (AUTO) 3.6 X 10^3 (1.8-7.8); NEUTROPHILS % (AUTO) 48 % (42-75); PLATELET COUNT 227 10^3/uL (130-400); RED CELL DISTRIBUTION WIDTH 14.5 % (10.0-14.5); WHITE BLOOD COUNT 7.5 10^3/uL (4.3-11.0)
[2018-04-02 10:29] LABS: BUN/CREATININE RATIO 20; CALCIUM 9.2 MG/DL (8.5-10.1); CARBON DIOXIDE 20 MMOL/L (21-32); CHLORIDE 101 MMOL/L (98-107); CREATININE SERUM 0.86 MG/DL (0.60-1.30); GFR ESTIMATED > 60; GLUCOSE 198 MG/DL (70-105); POTASSIUM 4.3 MMOL/L (3.6-5.0); SODIUM 134 MMOL/L (135-145)
[2018-04-09 09:35] LABS: BASOPHILS # (AUTO) 0.1 10^3/uL (0.0-0.1); BASOPHILS % (AUTO) 1 % (0-10); EOSINOPHILS # (AUTO) 0.2 10^3/uL (0.0-0.3); EOSINOPHILS % (AUTO) 3 % (0-10); HEMATOCRIT 35 % (40-54); HEMOGLOBIN 11.8 G/DL (13.3-17.7); LYMPHOCYTES # (AUTO) 3.8 X 10^3 (1.0-4.0); LYMPHOCYTES % (AUTO) 45 % (12-44); MEAN CORPUSCULAR HEMOGLOBIN 29 PG (25-34); MEAN CORPUSCULAR HGB CONC 33 G/DL (32-36); MEAN CORPUSCULAR VOLUME 86 FL (80-99); MEAN PLATELET VOLUME 9.8 FL (7.4-10.4); MONOCYTES # (AUTO) 0.6 X 10^3 (0.0-1.0); MONOCYTES % (AUTO) 7 % (0-12); NEUTROPHILS # (AUTO) 3.9 X 10^3 (1.8-7.8); NEUTROPHILS % (AUTO) 45 % (42-75); PLATELET COUNT 216 10^3/uL (130-400); RED CELL DISTRIBUTION WIDTH 14.6 % (10.0-14.5); WHITE BLOOD COUNT 8.5 10^3/uL (4.3-11.0)
[2018-04-09 09:51] LABS: ALANINE AMINOTRANSFERASE 17 U/L (0-55); ALKALINE PHOSPHATASE 102 U/L (40-136); BILIRUBIN,TOTAL 0.5 MG/DL (0.1-1.0); BUN/CREATININE RATIO 23; CARBON DIOXIDE 21 MMOL/L (21-32); CHLORIDE 103 MMOL/L (98-107); CREATININE SERUM 0.91 MG/DL (0.60-1.30); GFR ESTIMATED > 60; GLUCOSE 154 MG/DL (70-105); POTASSIUM 4.1 MMOL/L (3.6-5.0); SODIUM 136 MMOL/L (135-145)
[~2018-04-25] VITALS: Ht 177.8 cm; Wt 131.1 kg
[~2018-04-25 10:12] MED LIST changes: +ACETAMINOPHEN 325 MG TAB (TYLENOL) CANCER CTR ONE; +ACETAMINOPHEN 325 MG TAB (TYLENOL) CANCER CTR PO PRN; +BENDAMUSTINE HCL 140 MG in NS (IVPB) CANCER CENTER 50 ML IV SCH; +BENDAMUSTINE HCL 150 MG in NS (IVPB) CANCER CENTER 50 ML IV SCH; +MEPERIDINE (DEMEROL) INJ 50 MG/ML CANCER CTR IV PRN; +NS IV 1000 ML (CANCER CTR) IV SCH; +NS IV 500 ML (CANCER CENTER) 500 ML IV SCH; +NS IV SCH; +ONDANSETRON MDV (CANCER CENTER 16 MG, DEXAMETHASONE INJECTION 10 MG in NS (IVPB) CANCER... IV SCH; +RITUXIMAB IV SCH; +diphenhydrAMINE 50 MG/ML INJ (CANCER CENTER) IV PRN; +diphenhydrAMINE 50 MG/ML INJ (CANCER CENTER) ONE; +riTUXimab 500 MG, riTUXimab FOR IV INJ CONC 300 MG in NS (IVPB) CANCER CENTER 186 ML IV SCH
[2018-04-29] MEDS ORDERED: SULF1TAB35 PO (15:14)
== END 2018-05-06 | disposition home or self-care (01) ==
LOC: ONC 10:12
PROVIDERS: ATTEND Internal Medicine Hematology & Oncology
DX: Z51.11 Encounter for antineoplastic chemotherapy (principal); C91.10 Chronic lymphocytic leukemia of B-cell type not having achieved remission; D64.9 Anemia, unspecified; E11.9 Type 2 diabetes mellitus without complications; I10 Essential (primary) hypertension; Z79.82 Long term (current) use of aspirin; Z79.4 Long term (current) use of insulin; Z79.899 Other long term (current) drug therapy; Z96.653 Presence of artificial knee joint, bilateral
CPT/HCPCS: 36415; 80048; 80053; 83615; 85025; 96375; 96409; 96413; 96417; 99213; J9310; J9312

== ENCOUNTER 2018-04-29 14:03 | Emergency (ER) | payer MEDICARE, OTHER ==
[~2018-04-29] VITALS: Ht 180.3 cm; Wt 131.5 kg
[~2018-04-29 14:03] MED LIST changes: -ACETAMINOPHEN 325 MG TAB (TYLENOL) CANCER CTR ONE; -ACETAMINOPHEN 325 MG TAB (TYLENOL) CANCER CTR PO PRN; -BENDAMUSTINE HCL 140 MG in NS (IVPB) CANCER CENTER 50 ML IV SCH; -BENDAMUSTINE HCL 150 MG in NS (IVPB) CANCER CENTER 50 ML IV SCH; -MEPERIDINE (DEMEROL) INJ 50 MG/ML CANCER CTR IV PRN; -NS IV 1000 ML (CANCER CTR) IV SCH; -NS IV 500 ML (CANCER CENTER) 500 ML IV SCH; -NS IV SCH; -ONDANSETRON MDV (CANCER CENTER 16 MG, DEXAMETHASONE INJECTION 10 MG in NS (IVPB) CANCER... IV SCH; -RITUXIMAB IV SCH; -diphenhydrAMINE 50 MG/ML INJ (CANCER CENTER) IV PRN; -diphenhydrAMINE 50 MG/ML INJ (CANCER CENTER) ONE; -riTUXimab 500 MG, riTUXimab FOR IV INJ CONC 300 MG in NS (IVPB) CANCER CENTER 186 ML IV SCH
--- OUTSIDE RECORDS SUMMARY | 2018-04-29 14:15 | XMS REPORT | Continuity of Care Document ---
Author Author Formerly [facility] Address Unknown Phone Unavailable Allergies Active Description Code Type Severity Reaction Onset Reported/Identified Relationship to Patient Clinical Status Yes Lisinopril HCTZ Drug Allergy 12/16/2008 Yes No Known Drug Allergies [id number] Drug Allergy Unknown N/A 04/18/2018 Medications There [...] DO 250.00 DIABETES MELLITUS TYPE 2 08/15/2008 ADAM DRAPER DO 401.1 ESSENTIAL HYPERTENSION BENIGN 08/15/2008 SHADIA BLAIR APRN 250.00 DIABETES MELLITUS TYPE 2 08/15/2008 SHADIA BLAIR APRN 401.1 ESSENTIAL HYPERTENSION BENIGN 08/15/2008 ROSSY INSURANCE VERIFIER, SHADIA T 250.00 DIABETES MELLITUS TYPE 2 [...] T 401.1 ESSENTIAL HYPERTENSION BENIGN 08/15/2008 ROSSY BRANHART, SHADIA T 250.00 DIABETES MELLITUS TYPE 2 [...] BLD/BLD-FOR 09/23/2017 JARRETT CALLE MD Ot Z79.4 HEAD BUCKER (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 OF INSULIN 09/23/2017 JARRETT CALLE [...] INSULIN 12/01/2017 CLIFF CUELLAR N Ot Z79.82 HEAD BUCKER (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 OF ASPIRIN 12/01/2017 POLOCLIFF YOUSIF N Ot Z79.899 OTHER HEAD BUCKER (CURRENT) DRUG THERAPY 12/01/2017 POLOCLIFF YOSUIF N Ot Z96.653 PRESENCE OF ARTIFICIAL KNEE [...] OF INSULIN 01/31/2018 POLOVANDANAAN N Ot Z79.82 HEAD BUCKER (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 OF ASPIRIN 01/31/2018 POLO, BOBAN N Ot Z79.899 OTHER HEAD BUCKER (CURRENT) DRUG THERAPY 01/31/2018 POLOVANDANAAN N Ot [...] 02/01/2018 POLO BOBAN N Ot Z79.899 OTHER HEAD BUCKER (CURRENT) DRUG THERAPY 02/01/2018 POLO BOBAN N Ot Z96.6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, BILAT 03/12/2018 POLO BOBAN N Ot D64.9 ANEMIA, UNSPECIFIED 03/12/2018 POLO, BOBAN N Ot D72.820 LYMPHOCYTOSIS (SYMPTOMATIC) 03/12/2018 POLO BOBAN N Ot E11.9 TYPE 2 DIABETES MELLITUS WITHOUT COMPLIC 03/12/2018 POLO BOBAN N Ot I10 ESSENTIAL (PRIMARY) HYPERTENSION 03/12/2018 POLO BOBAN N Ot Z79.4 HEAD BUCKER (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 OF INSULIN 03/12/2018 POLO, BOBAN N Ot Z79.82 HEAD BUCKER (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 OF ASPIRIN 03/12/2018 POLO, BOBAN N Ot Z79.899 OTHER HEAD BUCKER (CURRENT) DRUG THERAPY 03/12/2018 POLO, BOBAN N Ot Z96.6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, BILAT 04/02/2018 POLO BOBAN N Ot D64.9 ANEMIA, UNSPECIFIED 04/02/2018 POLO, BOBAN N Ot D72.820 LYMPHOCYTOSIS (SYMPTOMATIC) 04/02/2018 CLIFF CUELLAR Ot E11.9 TYPE 2 DIABETES MELLITUS WITHOUT COMPLIC 04/02/2018 CLIFF CUELLAR Pranay Ot I10 ESSENTIAL (PRIMARY) HYPERTENSION 04/02/2018 CLIFF CUELLAR Ot Z79.4 SNF (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 OF INSULIN 04/02/2018 CLIFF CUELLAR Ot Z79.82 SNF (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 OF ASPIRIN 04/02/2018 CLIFF CUELLAR Pranay Ot Z79.899 OTHER SNF (CURRENT) DRUG THERAPY 04/02/2018 CLIFF CUELLAR Ot Z96.6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, BILAT 04/04/2018 LISA PICKARD Ot C91.10 CHRONIC LYMPHOCYTIC LEUK OF B-CELL TYPE 04/06/2018 LISA PICKARD Ot C91.10 CHRONIC LYMPHOCYTIC LEUK OF B-CELL TYPE 04/08/2018 LISA PICKARD Ot C91.10 CHRONIC LYMPHOCYTIC LEUK OF B-CELL TYPE 04/13/2018 SUSY ROTHMAN DO Ot Z01.818 ENCOUNTER FOR OTHER PREPROCEDURAL EXAMIN 04/18/2018 SUSY ROTHMAN DO Ot C91.10 CHRONIC LYMPHOCYTIC LEUK OF B-CELL TYPE 04/18/2018 SUSY ROTHMAN DO Ot E11.40 TYPE 2 DIABETES MELLITUS WITH DIABETIC N 04/18/2018 SUSY ROTHMAN DO Ot E66.01 MORBID (SEVERE) OBESITY DUE TO EXCESS CA 04/18/2018 SUSY ROTHMAN DO Ot E78.5 HYPERLIPIDEMIA, UNSPECIFIED 04/18/2018 SUSY ROTHMAN DO Ot I10 ESSENTIAL (PRIMARY) HYPERTENSION 04/18/2018 SUSY ROTHMAN DO Ot R59.1 GENERALIZED ENLARGED LYMPH NODES 04/18/2018 SUSY ROTHMAN DO Ot Z11.2 ENCOUNTER FOR SCREENING FOR OTHER BACTER 04/18/2018 SUSY ROTHMAN DO Ot Z68.39 BODY MASS INDEX (BMI) 39.0-39.9, ADULT 04/18/2018 SUSY ROTHMAN DO Ot Z79.4 HEAD BUCKER (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 OF INSULIN 04/18/2018 SUSY ROTHMAN DO Ot Z79.82 SNF (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 OF ASPIRIN 04/18/2018 SUSY ROTHMAN DO Ot Z79.899 OTHER SNF (CURRENT) DRUG THERAPY 04/18/2018 LORNA HOLLYSUSY Ot Z96.6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, BILAT 04/24/2018 LORNA HOLLYSUSY Ot C91.10 CHRONIC LYMPHOCYTIC LEUK OF B-CELL TYPE 04/24/2018 LORNA HOLLYSUSY Ot E11.40 TYPE 2 DIABETES MELLITUS WITH DIABETIC N 04/24/2018 CRISTÓBALDRAGAN SUSY HOLLY Ot E66.01 MORBID (SEVERE) OBESITY DUE TO EXCESS CA 04/24/2018 LORNA SUSY HOLLY Ot E78.5 HYPERLIPIDEMIA, UNSPECIFIED 04/24/2018 CRISTÓBALDRAGAN HOLLYSUSY Ot I10 ESSENTIAL (PRIMARY) HYPERTENSION 04/24/2018 LORNA HOLLYSUSY Ot R59.1 GENERALIZED ENLARGED LYMPH NODES 04/24/2018 LORNA HOLLYSUSY Ot Z11.2 ENCOUNTER FOR SCREENING FOR OTHER BACTER 04/24/2018 SUSY ROTHMAN DO Ot Z68.39 BODY MASS INDEX (BMI) 39.0-39.9, ADULT 04/24/2018 CRISTÓBALDRAGAN SUSY HOLLY Ot Z79.4 SNF (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 OF INSULIN 04/24/2018 CRISTÓBALDRAGAN SUSY HOLLY Ot Z79.82 HEAD BUCKER (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 OF ASPIRIN 04/24/2018 CRISTÓBALDRAGAN SUSY HOLLY Ot Z79.899 OTHER SNF (CURRENT) DRUG THERAPY 04/24/2018 LORNA HOLLYSUSY Ot Z96.6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, BILAT 04/25/2018 LISA PICKARD Ot C91.10 CHRONIC LYMPHOCYTIC LEUK OF B-CELL TYPE Procedures Code Description [place] [address] A1C (IN-HOUSE) 05/15/2012 13397 ROUTINE VENIPUNCTURE 05/25/2012 41068 CBC 05/25/2012 88084 CMP 05/25/2012 66826 LIPID PANEL 05/25/2012 2354449 GFR CALC (RESULT ONLY) 05/25/2012 94716 GASTRIN 05/28/2012 08815 A1C (IN-HOUSE) 09/04/2012 77494 A1C (IN-HOUSE) 12/12/2012 64659 MICRO ALBUMIN-IN HOUSE 12/12/2012 08065 MICROALBUMIN 12/12/2012 60083 A1C (IN-HOUSE) 04/01/2013 02011 A1C (IN-HOUSE) 07/15/2013 81719 A1C (IN-HOUSE) 11/15/2013 63772 ROUTINE VENIPUNCTURE 11/20/2013 90357 CBC 11/20/20131576734 GFR CALC (RESULT ONLY) 11/20/2013 42243 CMP 11/20/2013 09212 LIPID PANEL 11/20/2013 15225 MICRO ALBUMIN-IN HOUSE 02/17/2014 77316 A1C (IN-HOUSE) 02/17/2014 15844 MICROALBUMIN 02/17/2014 [id number] 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, RICHARD 07/19/2017 [id number] REPLACE OF R KNEE JT WITH SYNTH [...] ABO+Rh group OP NRG Transfusion band number [id number] NRG Blood group antibody screen NEGATIVE NRG [...] blood smear finding identification by light microscopy NRG Erythrocyte sedimentation rate by westergren method [...] ABO+Rh group OP NRG Transfusion band number [id number] NRG Blood group antibody screen NEGATIVE NRG Blood lymphocytes count by flow cytometry (number/volume) - 09/19/17 13:50 Pathology consultation and report [id number] Capillary blood glucose measurement by glucometer [...] results B CELL CLL BONE MAR NRG Methicillin resistant Staphylococcus aureus (MRSA) screening culture - 08:05 Methicillin resistant Staphylococcus aureus (MRSA) screening culture NEG NRG Capillary blood glucose measurement by glucometer (mass/volume) - 04/18/18 08: 18 Capillary blood glucose measurement by glucometer (mass/volume) 149 mg/dL 70-110 Encounters ACCT No. Visit Date/Time Discharge Status Pt. Type Provider Facility Loc./Unit Complaint [id number] 04/25/2014 09:09:00 04/25/2014 23:59:59 CLS Outpatient ADAM DRAPER DO [id number] 03/21/2014 10:20:00 03/21/2014 23:59:59 CLS Outpatient SHADIA BLAIR APRN [id number] 02/17/2014 10:13:00 02/17/2014 23:59:59 CLS Outpatient SHADIA BLAIR APRN [id number] 12/16/2013 09:09:00 12/16/2013 23:59:59 CLS Outpatient SHADIA BLAIR APRN [id number] 11/20/2013 08:07:00 11/20/2013 23:59:59 CLS Outpatient SHADIA BLAIR APRN [id number] 11/15/2013 12:13:00 11/15/2013 23:59:59 CLS Outpatient SHADIA BLAIR APRN [id number] 07/15/2013 09:15:00 07/15/2013 23:59:59 CLS Outpatient ADAM DRAPER DO [id number] 05/03/2013 08:48:00 05/03/2013 23:59:59 CLS Outpatient BRIANNA ALANIZ, ZOE [id number] 04/01/2013 10:04:00 04/01/2013 23:59:59 CLS Outpatient SHADIA BLAIR APRN [id number] 01/25/2013 08:54:00 01/25/2013 23:59:59 CLS Outpatient ADAM DRAPER DO [id number] 12/26/2012 10:43:00 12/26/2012 23:59:59 CLS Outpatient SHADIA BLAIR APRN [id number] 12/12/2012 14:22:00 12/12/2012 23:59:59 CLS Outpatient SHADIA BLAIR APRN [id number] 09/04/2012 14:22:00 09/04/2012 23:59:59 CLS Outpatient ADAM DRAPER DO [id number] 05/30/2012 16:04:00 05/30/2012 23:59:59 CLS Outpatient [id number] 05/25/2012 08:09:00 05/25/2012 23:59:59 CLS Outpatient SHADIA BLAIR APRN [id number] 05/15/2012 14:05:00 05/15/2012 23:59:59 CLS Outpatient [id number] 02/08/2012 10:02:00 02/08/2012 23:59:59 CLS Outpatient [id number] 01/11/2012 11:51:00 01/11/2012 23:59:59 CLS Outpatient SHADIA BLAIR APRN [id number] 06/27/2012 10:09:00 Document Registration [id number] 04/25/2018 10:12:00 04/25/2018 23:59:59 CLS Outpatient CLIFF CUELLAR [facility] ONC [id number] 04/18/2018 07:59:00 04/18/2018 12:25:00 DIS Outpatient SUSY ROTHMAN DO [facility] SDC GENERALIZED ENLARGED LYMPH NODES, CLL [id number] 04/13/2018 05:33:00 04/13/2018 14:59:00 DIS Outpatient SUSY ROTHMAN DO [facility] PREOP GENERALIZED ENLARGED LYMPH NODES, CLL [id number] 04/04/2018 09:55:00 04/04/2018 23:59:59 CLS Outpatient LISA PICKARD [facility] RAD IMAGING STUDY TO RESTAGE NEOPLASM [id number] 01/29/2018 08:55:00 01/31/2018 00:01:00 DIS Outpatient CLIFF CUELLAR [facility] ONC [id number] 01/02/2018 12:42:00 01/02/2018 23:59:59 CLS Outpatient JARRETT CALLE MD [facility] RAD 715.16 M17.0 [id number] 11/10/2017 11:23:00 11/10/2017 12:49:00 DIS Outpatient JARRETT CALLE MD [facility] REHAB L TKA [id number] 11/07/2017 14:25:00 11/07/2017 23:59:59 CLS Outpatient CLIFF CUELLAR [facility] RAD LYMPHOCYTOSIS, LYMPHADENOPATHY [id number] 09/20/2017 05:51:00 09/23/2017 11:10:00 DIS Inpatient JARRETT CALLE MD [facility] 4TH OSTEOARTHRITIS RIGHT KNEE [id number] 09/19/2017 13:29:00 09/19/2017 23:59:59 CLS Outpatient TR FAY MD [facility] LAB CLL [id number] 09/19/2017 08:00:00 09/19/2017 09:53:00 DIS Outpatient JARRETT CALLE MD [facility] REHAB L TKA; BILATERAL PRIMARY OA OF KNEE [id number] 09/12/2017 13:20:00 09/12/2017 13:55:00 DIS Outpatient JARRETT CALLE MD [facility] PREOP OSTEOARTHRITIS RIGHT KNEE [id number] 07/19/2017 06:00:00 07/22/2017 12:00:00 DIS Inpatient JARRETT CALLE MD [facility] 4TH LEFT KNEE OSTEOARTHRITIS [id number] 07/12/2017 10:04:00 07/12/2017 11:10:00 DIS Outpatient JARRETT CALLE MD [facility] PREOP LEFT TOTAL KNEE REPLACEMENT [id number] 07/16/2016 11:06:00 Document Registration [id number] 09/11/2017 11:00:00 09/11/2017 23:59:59 CLS [facility]
[2018-04-29] MEDS ORDERED: SULF1TAB35 PO (15:14)
--- NOTE | 2018-04-29 15:14 | ED Integumentary General ---
General Chief Complaint: Skin/Wound Problems Stated Complaint: POST OP/INCISION OPENED UP Nursing Triage Note: pt had lymph node biopsy left groin 04/19/[address] rothman. he was checked on by dr rothman, swelling noted at that time. pt reports extreme drainage starting today. clear yellow drainage. pt denies pain, fever , redness, warmth. History of Present Illness Date Seen by Provider: Apr 29, 2018 Time Seen by Provider: 14:45 Initial Comments 68-year-old male presents for drainage from left groin. He had a biopsy done on 04/19/18. The wound has been healing with no complications. He had his follow-up with Dr. Rothman and there were no concerns. He began having clear discharge from the wound with no erythema or fever. No injuries to the left groin. Timing/Duration: this morning Possible Cause: no cause identified Associated Symptoms: denies symptoms Allergies and Home Medications Allergies Coded Allergies: No Known Drug Allergies (Unverified , 04/18/18) Home Medications Amlodipine Besylate 5 Mg Tablet, 5 MG PO DAILY, (Reported) Aspirin 81 Mg Tablet.dr, 81 MG PO DAILY, (Reported) Glimepiride 4 Mg Tablet, 4 MG PO BID, (Reported) Insulin Aspart 300 Units/3 Ml Solution, 15 UNITS SQ BID WITH MEALS Prescribed by: RONNIE SUN on 07/22/17 0822 Insulin Detemir 100 Unit/1 Ml Insuln.pen, 48 UNIT SQ BID, (Reported) Krill/Om-3/Dha/Epa/Phospho/Ast 1 Each Capsule, 1 EACH PO DAILY, (Reported) Lisinopril/Hydrochlorothiazide 1 Each Tablet, 1 TAB PO BID, (Reported) Lovastatin 20 Mg Tablet, 20 MG PO DAILY, (Reported) Metformin HCl 1,000 Mg Tablet, 1,000 MG PO BID, (Reported) Metoprolol Tartrate 50 Mg Tablet, 50 MG PO BID, (Reported) Oxycodone HCl/Acetaminophen 1 Each Tablet, 1 EACH PO Q4H Prescribed by: JARRETT CALLE on 09/20/17 0720 Sulfamethoxazole/Trimethoprim 1 Each Tablet, 1 EACH PO BID Prescribed by: LESLI TATUM on 04/29/18 1514 Patient Home Medication List Home Medication List Reviewed: Yes Review of Systems Review of Systems Constitutional: no symptoms reported, see HPI; No fever Skin: see HPI, other (drainage from wound left groin) All Other Systems Reviewed Negative Unless Noted: Yes Past Zsgogkp-Squaru-Fmbwrq Hx Past Med/Social Hx: Reviewed Nursing Past Med/Soc Hx Patient Social History Alcohol Use: Rarely Uses Number of Drinks Today: AA Alcohol Beverage of Choice: Beer Recreational Drug Use: No Smoking Status: Never a Smoker Recent Foreign Travel: No Contact w/Someone Who Travel: No Recent Infectious Disease Expo: No Recent Hopitalizations: No Immunizations Up To Date Tetanus Booster (TDap): Unknown Seasonal Allergies Seasonal Allergies: No Past Medical History Surgeries: Yes (bilat total knee, lymph node removal) Tonsillectomy Respiratory: No Cardiac: Yes Hypertension Neurological: No Sexually Transmitted Disease: No HIV/AIDS: No Genitourinary: No Gastrointestinal: No Musculoskeletal: Yes (OSTEOARTHRITIS) Arthritis Endocrine: Yes Diabetes, Non-Insulin dep HEENT: Yes (BILAT CATARACTS REMOVED, BOTTOM FRONT 4 TEETH ARE LOOSE) Cataract Cancer: Yes Leukemia Psychosocial: No Integumentary: No Blood Disorders: No Family Medical History Dementia 19 MOTHER Diabetes mellitus G8 BROTHER G8 SISTER Hypertension G8 BROTHER Respiratory disorder 19 FATHER (lung cancer) Physical Exam Vital Signs Vital Signs - First Documented 04/29/18 14:41 Temp 98.3 Pulse 88 Resp 16 B/P (MAP) 167/75 (105) Pulse Ox 97 O2 Delivery Room Air Capillary Refill : Less Than 3 Seconds General Appearance: WD/WN, no apparent distress Cardiovascular: normal peripheral pulses, regular rate, rhythm Respiratory: chest non-tender, lungs clear, normal breath sounds Gastrointestinal: normal bowel sounds, non tender, soft Neurologic/Psychiatric: no motor/sensory deficits, alert, normal mood/affect Skin: normal color Skin Problem Location: other (left groin) Skin Problem Character: other (incision well healed, no warmth or erythema. No induration or fluctuance noted. With gentle pressure on the wound there is a pinpoint opening in the middle third with clear drainage. It is easy to express. Patient denies any pain with palpation. Culture obtained.) Lymphatic: no adenopathy Progress/Results/Core Measures Results/Orders My Orders Orders - LESLI TATUM Wound Culture (04/29/18 15:09) Vital Signs/I&O 04/29/18 04/29/18 14:41 15:21 Temp 98.3 Pulse 88 0 Resp 16 0 B/P (MAP) 167/75 (105) 0/0 (0) Pulse Ox 97 0 O2 Delivery Room Air Blood Pressure Mean: 105 Departure Impression Primary Impression: Encounter for post surgical wound check Disposition: HOME, SELF-CARE Condition: Improved Departure-Patient Inst. Decision time for Depature: 15:10 [address]: [facility] [place] (PCP/Family) Primary Care Physician Patient Instructions: Wound Care (DC) Add. Discharge Instructions: Take antibiotic as prescribed. Change dressing as needed to keep wound clean and dry. Clean with peroxide and apply triple antibiotic 3 times daily. Follow-up with Dr. Rothman early this week, call for appointment. Return to emergency department for increased redness, fever greater than 101 not relieved by Tylenol or ibuprofen, or new concerns. All discharge instructions reviewed with patient and/or family. Voiced understanding. Scripts Sulfamethoxazole/Trimethoprim (Bactrim Ds Tablet) 1 Each Tablet 1 EACH PO BID, #14 TAB 0 Refills Prov: LESLI TATUM 04/29/18 Copy Copies To 1: SUSY ROTHMAN AMY ARNP Apr 29, 2018 15:14
[2018-04-29 15:21] VITALS: BP 0/0
== END 2018-04-29 15:21 | disposition home or self-care (01) ==
LOC: EDUNIT# 14:03 → ER 14:04
DX: Z48.89 Encounter for other specified surgical aftercare (principal); I10 Essential (primary) hypertension; E11.9 Type 2 diabetes mellitus without complications; Z85.6 Personal history of leukemia; Z96.653 Presence of artificial knee joint, bilateral; Z90.89 Acquired absence of other organs; Z98.890 Other specified postprocedural states
CPT/HCPCS: 87070; 87205; 99282

== ENCOUNTER 2018-05-15 05:44 | Outpatient (CLI) | payer MEDICARE, OTHER ==
[~2018-05-15] VITALS: Ht 180.3 cm; Wt 131.5 kg
[~2018-05-15 05:44] MED LIST changes: +SULF1TAB35 PO
== END 2018-05-15 11:07 | disposition home or self-care (01) ==
LOC: PREOP 05:44
PROVIDERS: ATTEND Surgery
DX: Z01.818 Encounter for other preprocedural examination (principal)

== ENCOUNTER 2018-05-16 07:16 | Day surgery (SDC) | payer MEDICARE, OTHER ==
[~2018-05-16] VITALS: Ht 180.3 cm; Wt 131.5 kg
[2018-05-16 07:20] VITALS: BP 161/62
--- OUTSIDE RECORDS SUMMARY | 2018-05-16 07:26 | XMS REPORT | Continuity of Care Document ---
Author Author [facility] Address Unknown Phone Unavailable Allergies Active Description Code Type Severity Reaction Onset Reported/Identified Relationship to Patient Clinical Status Yes Lisinopril HCTZ Drug Allergy 12/16/2008 Yes No Known Drug Allergies [id number] Drug Allergy Unknown N/A 04/18/2018 Medications There [...] APRN 401.1 ESSENTIAL HYPERTENSION BENIGN 08/15/2008 [facility] DEAN, SHADIA T 250.00 DIABETES MELLITUS TYPE 2 [...] LEFT 07/22/2017 JARRETT CALLE MD Ot Z79.4 ALF (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 OF INSULIN 08/23/2017 JARRETT CALLE [...] BLD/BLD-FOR 09/23/2017 JARRETT CALLE MD Ot Z79.4 HYDRAULIC DESIGN ENGINEER (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 OF INSULIN 09/23/2017 JARRETT CALLE [...] (PRIMARY) HYPERTENSION 12/01/2017 POLOCLIFF N Ot Z79.4 ALF (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 OF INSULIN 12/01/2017 CLIFF CUELLAR N Ot Z79.82 HYDRAULIC DESIGN ENGINEER (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 OF ASPIRIN 12/01/2017 POLOCLIFF YOUSIF N Ot Z79.899 OTHER HYDRAULIC DESIGN ENGINEER (CURRENT) DRUG THERAPY 12/01/2017 POLOCLIFF YOUSIF N [...] (PRIMARY) HYPERTENSION 01/11/2018 CLIFF CUELLAR Ot Z79.4 ALF (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 OF INSULIN 01/11/2018 CLIFF CUELLAR N Ot Z79.82 ALF (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 OF ASPIRIN 01/11/2018 CLIFF CUELLAR N Ot Z79.899 OTHER ALF (CURRENT) DRUG THERAPY 01/11/2018 CLIFF CUELLAR N Ot Z96.6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, BILAT 01/24/2018 JARRETT CALLE MD Ot M17.0 BILATERAL PRIMARY OSTEOARTHRITIS OF KNEE 01/24/2018 JARRETT CALLE MD Ot Z96.652 PRESENCE OF LEFT ARTIFICIAL KNEE JOINT 01/31/2018 CLIFF CUELLAR N Ot D64.9 ANEMIA, UNSPECIFIED 01/31/2018 CLIFF CUELLAR N Ot D72.820 LYMPHOCYTOSIS (SYMPTOMATIC) 01/31/2018 CLIFF CUELLRA N Ot E11.9 TYPE 2 DIABETES MELLITUS WITHOUT COMPLIC 01/31/2018 POLO, BOBAN N Ot I10 ESSENTIAL (PRIMARY) HYPERTENSION 01/31/2018 POLOCLIFF N Ot Z79.4 ALF (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 OF INSULIN 01/31/2018 POLOVANDANAAN N Ot Z79.82 HYDRAULIC DESIGN ENGINEER (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 OF ASPIRIN 01/31/2018 POLO, BOBAN N Ot Z79.899 OTHER HYDRAULIC DESIGN ENGINEER (CURRENT) DRUG THERAPY 01/31/2018 POLOVANDANAAN N Ot Z96.6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, BILAT 02/01/2018 POLO BOBAN N Ot D64.9 ANEMIA, UNSPECIFIED 02/01/2018 POLO, BOBAN N Ot D72.820 LYMPHOCYTOSIS (SYMPTOMATIC) 02/01/2018 POLO BOBAN N Ot E11.9 TYPE 2 DIABETES MELLITUS WITHOUT COMPLIC 02/01/2018 POLO BOBAN N Ot I10 ESSENTIAL (PRIMARY) HYPERTENSION 02/01/2018 POLO BOBAN N Ot Z79.4 ALF (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 OF INSULIN 02/01/2018 POLO BOBAN N Ot Z79.82 ALF (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 OF ASPIRIN 02/01/2018 POLO BOBAN N Ot Z79.899 OTHER HYDRAULIC DESIGN ENGINEER (CURRENT) DRUG THERAPY 02/01/2018 POLO BOBAN N Ot Z96.6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, BILAT 03/12/2018 POLO BOBAN N Ot D64.9 ANEMIA, UNSPECIFIED 03/12/2018 POLO, BOBAN N Ot D72.820 LYMPHOCYTOSIS (SYMPTOMATIC) 03/12/2018 POLO BOBAN N Ot E11.9 TYPE 2 DIABETES MELLITUS WITHOUT COMPLIC 03/12/2018 POLO BOBAN N Ot I10 ESSENTIAL (PRIMARY) HYPERTENSION 03/12/2018 POLO BOBAN N Ot Z79.4 HYDRAULIC DESIGN ENGINEER (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 OF INSULIN 03/12/2018 POLO, BOBAN N Ot Z79.82 HYDRAULIC DESIGN ENGINEER (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 OF ASPIRIN 03/12/2018 POLO, BOBAN N Ot Z79.899 OTHER HYDRAULIC DESIGN ENGINEER (CURRENT) DRUG THERAPY 03/12/2018 POLO, BOBAN N Ot Z96.6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, BILAT 04/02/2018 POLO BOBAN N Ot D64.9 ANEMIA, UNSPECIFIED 04/02/2018 POLO, BOBAN N Ot D72.820 LYMPHOCYTOSIS (SYMPTOMATIC) 04/02/2018 CLIFF CUELLAR Ot E11.9 TYPE 2 DIABETES MELLITUS WITHOUT COMPLIC 04/02/2018 CLIFF CUELLAR Pranay Ot I10 ESSENTIAL (PRIMARY) HYPERTENSION 04/02/2018 CLIFF CUELLAR Ot Z79.4 ALF (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 OF INSULIN 04/02/2018 CLIFF CUELLAR Ot Z79.82 ALF (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 OF ASPIRIN 04/02/2018 CLIFF CUELLAR Pranay Ot Z79.899 OTHER ALF (CURRENT) DRUG THERAPY 04/02/2018 CLIFF CUELLAR Ot [...] ADULT 04/18/2018 SUSY ROTHMAN DO Ot Z79.4 HYDRAULIC DESIGN ENGINEER (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 OF INSULIN 04/18/2018 SUSY ROTHMAN DO Ot Z79.82 ALF (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 OF ASPIRIN 04/18/2018 DELMAN DO, SUSY B Ot Z79.899 OTHER ALF (CURRENT) DRUG THERAPY 04/18/2018 ANDRES ROTHMAN DOIC B Ot Z96.6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, BILAT 04/24/2018 LORNA HOLLY SUSY B Ot C91.10 CHRONIC LYMPHOCYTIC LEUK OF B-CELL TYPE 04/24/2018 LORNA HOLLY SUSY B Ot E11.40 TYPE 2 DIABETES MELLITUS WITH DIABETIC N 04/24/2018 LORNA HOLLYSUSY Ot E66.01 MORBID (SEVERE) OBESITY DUE TO EXCESS CA 04/24/2018 LORNA HOLLY SUSY B Ot E78.5 HYPERLIPIDEMIA, UNSPECIFIED 04/24/2018 LORNA HOLLYANDRESIC B Ot I10 ESSENTIAL (PRIMARY) HYPERTENSION 04/24/2018 LORNA HOLLY SUSY B Ot R59.1 GENERALIZED ENLARGED LYMPH NODES 04/24/2018 LORNA HOLLY SUSY B Ot Z11.2 ENCOUNTER FOR SCREENING FOR OTHER BACTER 04/24/2018 LORNA HOLLYSUSY Ot Z68.39 BODY MASS INDEX (BMI) 39.0-39.9, ADULT 04/24/2018 LORNA HOLLY SUSY B Ot Z79.4 ALF (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 OF INSULIN 04/24/2018 LORNA HOLLY SUSY B Ot Z79.82 HYDRAULIC DESIGN ENGINEER (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 OF ASPIRIN 04/24/2018 LORNA HOLLY SUSY B Ot Z79.899 OTHER ALF (CURRENT) DRUG THERAPY 04/24/2018 LORNA HOLLY SUSY B Ot Z96.6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, BILAT 04/25/2018 LISA PICKARD Ot C91.10 CHRONIC LYMPHOCYTIC LEUK OF B-CELL TYPE 04/29/2018 LESLI TATUM STATION CAPTAIN Ot E11.9 TYPE 2 DIABETES MELLITUS WITHOUT COMPLIC 04/29/2018 RC LESLI STATION CAPTAIN Ot I10 ESSENTIAL (PRIMARY) HYPERTENSION 04/29/2018 LESLI TATUMP Ot Z48.89 ENCOUNTER FOR OTHER SPECIFIED SURGICAL A 04/29/2018 LESLI TATUMP Ot Z85.6 PERSONAL HISTORY OF LEUKEMIA 04/29/2018 LESLI TATUM STATION CAPTAIN Ot Z90.89 ACQUIRED ABSENCE OF OTHER ORGANS 04/29/2018 LESLI TATUMP Ot Z96.6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, BILAT 04/29/2018 LESLI TATUM STATION CAPTAIN Ot Z98.890 OTHER SPECIFIED POSTPROCEDURAL STATES 04/30/2018 CLIFF CUELLAR Pranay Avina C91.10 CHRONIC LYMPHOCYTIC LEUK OF B-CELL TYPE 04/30/2018 POLO VANDANAIZA Pranay Ot D64.9 ANEMIA, UNSPECIFIED 04/30/2018 POLO VANDANAIZA Pranay Ot E11.9 TYPE 2 DIABETES MELLITUS WITHOUT COMPLIC 04/30/2018 POLO CLIFF Pires Ot I10 ESSENTIAL (PRIMARY) HYPERTENSION 04/30/2018 POLO CLIFF Pires Ot Z51.11 ENCOUNTER FOR ANTINEOPLASTIC CHEMOTHERAP 04/30/2018 VANDANA CUELLARIZA Pires Ot Z79.4 HYDRAULIC DESIGN ENGINEER (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 OF INSULIN 04/30/2018 CLIFF CUELLAR Ot Z79.82 ALF (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 OF ASPIRIN 04/30/2018 POLOCLIFF Ot Z79.899 OTHER HYDRAULIC DESIGN ENGINEER (CURRENT) DRUG THERAPY 04/30/2018 POLO CLIFF Pires Ot Z96.6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, BILAT 05/02/2018 SUSY ROTHMAN DO Ot C91.10 CHRONIC LYMPHOCYTIC LEUK OF B-CELL TYPE 05/02/2018 SUSY ROTHMAN DO Ot E11.40 TYPE 2 DIABETES MELLITUS WITH DIABETIC N 05/02/2018 SUSY ROTHMAN DO Ot E66.01 MORBID (SEVERE) OBESITY DUE TO EXCESS CA 05/02/2018 SUSY ROTHMAN DO B Ot E78.5 HYPERLIPIDEMIA, UNSPECIFIED 05/02/2018 ANDRES ROTHMAN DOIC B Ot I10 ESSENTIAL (PRIMARY) HYPERTENSION 05/02/2018 SUSY ROTHMAN DO Ot R59.1 GENERALIZED ENLARGED LYMPH NODES 05/02/2018 SUSY ROTHMAN DO Ot Z11.2 ENCOUNTER FOR SCREENING FOR OTHER BACTER 05/02/2018 SUSY ROTHMAN DO Ot Z68.39 BODY MASS INDEX (BMI) 39.0-39.9, ADULT 05/02/2018 SUSY ROTHMAN DO B Ot Z79.4 ALF (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 OF INSULIN 05/02/2018 SUSY ROTHMAN DO B Ot Z79.82 ALF (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 OF ASPIRIN 05/02/2018 SUSY ROTHMAN DO Ot Z79.899 OTHER HYDRAULIC DESIGN ENGINEER (CURRENT) DRUG THERAPY 05/02/2018 DELMAN DO, SUSY B Ot Z96.6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, BILAT 05/02/2018 RC, LESLI STATION CAPTAIN Ot E11.9 TYPE 2 DIABETES MELLITUS WITHOUT COMPLIC 05/02/2018 RC, LESLI STATION CAPTAIN Ot I10 ESSENTIAL (PRIMARY) HYPERTENSION 05/02/2018 RC LESLI STATION CAPTAIN Ot Z48.89 ENCOUNTER FOR OTHER SPECIFIED SURGICAL A 05/02/2018 RC, LESLI STATION CAPTAIN Ot Z85.6 PERSONAL HISTORY OF LEUKEMIA 05/02/2018 RC, LESLI STATION CAPTAIN Ot Z90.89 ACQUIRED ABSENCE OF OTHER ORGANS 05/02/2018 RC LESLI STATION CAPTAIN Ot Z96.6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, BILAT 05/02/2018 RC, LESLI STATION CAPTAIN Ot Z98.890 OTHER SPECIFIED POSTPROCEDURAL STATES 05/06/2018 CLIFF CUELLAR Ot C91.10 CHRONIC LYMPHOCYTIC LEUK OF B-CELL TYPE 05/06/2018 POLOCLIFF YOUSIF Ot D64.9 ANEMIA, UNSPECIFIED 05/06/2018 CLIFF CUELLAR N Ot E11.9 TYPE 2 DIABETES MELLITUS WITHOUT COMPLIC 05/06/2018 CLIFF CUELLAR N Ot I10 ESSENTIAL (PRIMARY) HYPERTENSION 05/06/2018 CLIFF CUELLAR Ot Z51.11 ENCOUNTER FOR ANTINEOPLASTIC CHEMOTHERAP 05/06/2018 CLIFF CUELLAR Ot Z79.4 HYDRAULIC DESIGN ENGINEER (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 OF INSULIN 05/06/2018 CLIFF CUELLAR Ot Z79.82 HYDRAULIC DESIGN ENGINEER (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 OF ASPIRIN 05/06/2018 CLIFF CUELLAR Ot Z79.899 OTHER ALF (CURRENT) DRUG THERAPY 05/06/2018 CLIFF CUELLAR Ot Z96.6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, BILAT 05/07/2018 CLIFF CUELLAR Ot C91.10 CHRONIC LYMPHOCYTIC LEUK OF B-CELL TYPE 05/07/2018 CLIFF CUELLAR Ot D64.9 ANEMIA, UNSPECIFIED 05/07/2018 CLIFF CUELLAR N Ot E11.9 TYPE 2 DIABETES MELLITUS WITHOUT COMPLIC 05/07/2018 CLIFF CUELLAR N Ot I10 ESSENTIAL (PRIMARY) HYPERTENSION 05/07/2018 POLOCLIFF YOUSIF N Ot Z51.11 ENCOUNTER FOR ANTINEOPLASTIC CHEMOTHERAP 05/07/2018 CLIFF CUELLAR Ot Z79.4 HYDRAULIC DESIGN ENGINEER (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 OF INSULIN 05/07/2018 CLIFF CUELLAR N Ot Z79.82 HYDRAULIC DESIGN ENGINEER (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 OF ASPIRIN 05/07/2018 CLIFF CUELLAR N Ot Z79.899 OTHER HYDRAULIC DESIGN ENGINEER (CURRENT) DRUG THERAPY 05/07/2018 CLIFF CUELLAR N Ot Z96.6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, BILAT 05/07/2018 POLOCLIFF N Ot C91.10 CHRONIC LYMPHOCYTIC LEUK OF B-CELL TYPE 05/07/2018 POLOCLIFF N Ot D64.9 ANEMIA, UNSPECIFIED 05/07/2018 POLOCLIFF N Ot E11.9 TYPE 2 DIABETES MELLITUS WITHOUT COMPLIC 05/07/2018 POLOCLIFF Ot I10 ESSENTIAL (PRIMARY) HYPERTENSION 05/07/2018 POLOCLIFF N Ot Z51.11 ENCOUNTER FOR ANTINEOPLASTIC CHEMOTHERAP 05/07/2018 POLOVANDANAIZA N Ot Z79.4 HYDRAULIC DESIGN ENGINEER (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 OF INSULIN 05/07/2018 POLOCLIFF N Ot Z79.82 HYDRAULIC DESIGN ENGINEER (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 OF ASPIRIN 05/07/2018 POLO CLIFF N Ot Z79.899 OTHER HYDRAULIC DESIGN ENGINEER (CURRENT) DRUG THERAPY 05/07/2018 CLIFF CUELLAR N Ot Z96.6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, BILAT 05/15/2018 NYA ALANIZ, TR Puri Ot Z13.0 ENCNTR SCREEN FOR DIS OF THE BLD/BLD-FOR 05/15/2018 POLOVANDANAIZA Pranay Ot D72.820 LYMPHOCYTOSIS (SYMPTOMATIC) 05/15/2018 CLIFF CUELLAR Ot R59.1 GENERALIZED ENLARGED LYMPH NODES 05/15/2018 ALVA ALANIZ, JARRETT Chou Ot M17.0 BILATERAL PRIMARY OSTEOARTHRITIS OF KNEE 05/15/2018 ALVA ALANIZ, JARRETT Chou Ot Z96.652 PRESENCE OF LEFT ARTIFICIAL KNEE JOINT 05/15/2018 LISA PICKARD Ot C91.10 CHRONIC LYMPHOCYTIC LEUK OF B-CELL TYPE 05/15/2018 CLIFF CUELLAR Ot C91.10 CHRONIC LYMPHOCYTIC LEUK OF B-CELL TYPE 05/15/2018 CLIFF CUELLAR Ot D64.9 ANEMIA, UNSPECIFIED 05/15/2018 POLOCLIFF N Ot E11.9 TYPE 2 DIABETES MELLITUS WITHOUT COMPLIC 05/15/2018 CLIFF CUELLAR Ot I10 ESSENTIAL (PRIMARY) HYPERTENSION 05/15/2018 CLIFF CUELLAR Ot Z51.11 ENCOUNTER FOR ANTINEOPLASTIC CHEMOTHERAP 05/15/2018 CLIFF CUELLAR Ot Z79.4 ALF (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 OF INSULIN 05/15/2018 CLIFF CUELLAR Ot Z79.82 HYDRAULIC DESIGN ENGINEER (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 OF ASPIRIN 05/15/2018 CLIFF CUELLAR Ot Z79.899 OTHER ALF (CURRENT) DRUG THERAPY 05/15/2018 CLIFF CUELLAR Ot Z96.6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, BILAT Procedures Code Description [place] [address] A1C (IN-HOUSE) 05/15/2012 86703 ROUTINE VENIPUNCTURE 05/25/2012 47656 CBC 05/25/2012 74775 CMP 05/25/2012 40684 LIPID PANEL 05/25/2012 [id number] GFR CALC (RESULT ONLY) 05/25/2012 11865 GASTRIN 05/28/2012 64869 A1C (IN-HOUSE) 09/04/2012 44303 A1C (IN-HOUSE) 12/12/2012 11346 MICRO ALBUMIN-IN HOUSE 12/12/2012 48056 MICROALBUMIN 12/12/2012 39330 A1C (IN-HOUSE) 04/01/2013 29781 A1C (IN-HOUSE) 07/15/2013 82859 A1C (IN-HOUSE) 11/15/2013 59349 ROUTINE VENIPUNCTURE 11/20/2013 04568 CBC 11/20/2013 [id number] GFR CALC (RESULT ONLY) 11/20/2013 94976 CMP 11/20/2013 94520 LIPID PANEL 11/20/2013 14270 MICRO ALBUMIN-IN HOUSE 02/17/2014 90307 A1C (IN-HOUSE) 02/17/2014 99628 MICROALBUMIN 02/17/2014 [id number] 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, RICHARD 07/19/2017 [id number] REPLACE OF R KNEE JT WITH SYNTH [...] ABO+Rh group OP NRG Transfusion band number [id number] NRG Blood group antibody screen NEGATIVE NRG [...] ABO+Rh group OP NRG Transfusion band number [id number] NRG Blood group antibody screen NEGATIVE NRG Blood lymphocytes count by flow cytometry (number/volume) - 09/19/17 13:50 Pathology consultation and report [id number] [facility] Capillary blood glucose measurement by glucometer (mass/volume) [...] measurement by glucometer (mass/volume) 149 mg/dL 70-110 Gram stain microscopy - 04/29/18 15:00 Gram stain microscopy No bacteria seen NRG Bacteria identification in wound by culture - 04/29/18 15:00 Bacteria identification in wound by culture NSF NRG FREE TEXT EXTERNAL NO SUSCEPTIBILITIES SET UP NRG QUANTITY OF GROWTH Isolated NRG Encounters ACCT No. Visit Date/Time Discharge Status Pt. Type Provider Facility Loc./Unit Complaint [id number] 04/25/2014 09:09:00 04/25/2014 23:59:59 CLS Outpatient ADAM DRAPER DO [id number] 03/21/2014 10:20:00 03/21/2014 23:59:59 CLS Outpatient SHADIA BLAIR APRN [id number] 02/17/2014 10:13:00 02/17/2014 23:59:59 CLS Outpatient SHADIA BLAIR APRN [id number] 12/16/2013 09:09:00 12/16/2013 23:59:59 CLS Outpatient SHADIA BLAIR APRN [id number] 11/20/2013 08:07:00 11/20/2013 23:59:59 CLS Outpatient SHADIA BLAIR APRN [id number] 11/15/2013 12:13:00 11/15/2013 23:59:59 CLS Outpatient SHADIA BLAIR APRN [id number] 07/15/2013 09:15:00 07/15/2013 23:59:59 CLS Outpatient BONNY HOLLY ADAM Parekh [id number] 05/03/2013 08:48:00 05/03/2013 23:59:59 CLS Outpatient ZOE REED MD [id number] 04/01/2013 10:04:00 04/01/2013 23:59:59 CLS Outpatient SHADIA BLAIR APRN [id number] 01/25/2013 08:54:00 01/25/2013 23:59:59 CLS Outpatient BONNY HOLLYADAM [id number] 12/26/2012 10:43:00 12/26/2012 23:59:59 CLS Outpatient SHADIA BLAIR APRN [id number] 12/12/2012 14:22:00 12/12/2012 23:59:59 CLS Outpatient SHADIA BLAIR APRN [id number] 09/04/2012 14:22:00 09/04/2012 23:59:59 CLS Outpatient ADAM DRAPER DO Izabella [id number] 05/30/2012 16:04:00 05/30/2012 23:59:59 CLS Outpatient [id number] 05/25/2012 08:09:00 05/25/2012 23:59:59 CLS Outpatient SHADIA BLAIR APRN [id number] 05/15/2012 14:05:00 05/15/2012 23:59:59 CLS Outpatient [id number] 02/08/2012 10:02:00 02/08/2012 23:59:59 CLS Outpatient [id number] 01/11/2012 11:51:00 01/11/2012 23:59:59 CLS Outpatient SHADIA BLAIR APRN [id number] 06/27/2012 10:09:00 Document Registration [id number] 05/15/2018 05:44:00 05/15/2018 11:07:00 DIS Outpatient SUSY ROTHAMN DO [facility] [address] PREOP LEUKEMIA [id number] 05/09/2018 12:44:00 05/09/2018 23:59:59 CLS Outpatient CLIFF CUELLAR [facility] [address] ONC [id number] 04/25/2018 10:12:00 05/06/2018 00:01:00 DIS Outpatient POLO CLIFF Pires [facility] [address] ONC [id number] 04/29/2018 14:04:00 04/29/2018 15:21:00 DIS Emergency LESLI TATUM [facility] [address] ER POST OP/INCISION OPENED UP [id number] 04/18/2018 07:59:00 04/18/2018 12:25:00 DIS Outpatient SUSY ROTHMAN DO [facility] [address] SDC GENERALIZED ENLARGED LYMPH NODES, CLL [id number] 04/13/2018 05:33:00 04/13/2018 14:59:00 DIS Outpatient SUSY ROTHMAN DO B [facility] [address] PREOP GENERALIZED ENLARGED LYMPH NODES, CLL [id number] 04/04/2018 09:55:00 04/04/2018 23:59:59 CLS Outpatient PICKARD LISA Cope STATION CAPTAIN [facility] [address] RAD IMAGING STUDY TO RESTAGE NEOPLASM [id number] 01/29/2018 08:55:00 01/31/2018 00:01:00 DIS Outpatient CLIFF CUELLAR [facility] [address] ONC [id number] 01/02/2018 12:42:00 01/02/2018 23:59:59 CLS Outpatient JARRETT CALLE MD [facility] [address] RAD 715.16 M17.0 [id number] 11/10/2017 11:23:00 11/10/2017 12:49:00 DIS Outpatient JARRETT CALLE MD [facility] [address] REHAB L TKA [id number] 11/07/2017 14:25:00 11/07/2017 23:59:59 CLS Outpatient CLIFF CUELLAR [facility] [address] RAD LYMPHOCYTOSIS, LYMPHADENOPATHY [id number] 09/20/2017 05:51:00 09/23/2017 11:10:00 DIS Inpatient JARRETT CALLE MD [facility] [address] 4TH OSTEOARTHRITIS RIGHT KNEE [id number] 09/19/2017 13:29:00 09/19/2017 23:59:59 CLS Outpatient TR FAY MD [facility] [address] LAB CLL [id number] 09/19/2017 08:00:00 09/19/2017 09:53:00 DIS Outpatient JARRETT CALLE MD [facility] [address] REHAB L TKA; BILATERAL PRIMARY OA OF KNEE [id number] 09/12/2017 13:20:00 09/12/2017 13:55:00 DIS Outpatient JARRETT CALLE MD [facility] [address] PREOP OSTEOARTHRITIS RIGHT KNEE [id number] 07/19/2017 06:00:00 07/22/2017 12:00:00 DIS Inpatient JARRETT CALLE MD [facility] [address] 4TH LEFT KNEE OSTEOARTHRITIS [id number] 07/12/2017 10:04:00 07/12/2017 11:10:00 DIS Outpatient JARRETT CALLE MD [facility] [address] PREOP LEFT TOTAL KNEE REPLACEMENT [id number] 05/16/2018 09:00:00 PEN Preadmit SUSY ROTHMAN DO [facility] LEUKEMIA [id number] 07/16/2016 11:06:00 Document Registration [id number] 09/11/2017 11:00:00 09/11/2017 23:59:59 [facility]
[2018-05-16] MEDS ORDERED: LACTATED RINGERS 1,000 ML IV PRN ×2 (07:40→08:56)
[2018-05-16] MEDS ORDERED: BUP/EPI 0.5% 1:200,000 (SENSORCAINE) 30 ML VIAL ONE (07:42)
[2018-05-16] MEDS ORDERED: HEParin (CENTRAL IV FLUSH) 500 UNIT/5 ML SYR ONE (07:42)
[2018-05-16] MEDS ORDERED: LIDOCAINE 1% INJ 20 ML 20 ML VIAL ONE (07:42)
[2018-05-16] MEDS ORDERED: 0.9% SODIUM CHLORIDE PF INJ 20 ML VIAL ONE (07:42)
[2018-05-16] MEDS ORDERED: ceFAZolin 2 GM/50 ML PRE-MIXED IVPB IV ONE (07:45)
[2018-05-16] MEDS ORDERED: CATHETER FLUSH 10 ML SYR IV PRN (07:45)
[2018-05-16] MEDS ORDERED: MIDAZOLAM 2 MG/2 ML (VERSED) VIAL ONE (08:53)
[2018-05-16] MEDS ORDERED: PROPOFOL INJECTION 50 ML IV ONE (08:53)
[2018-05-16] MEDS ORDERED: ceFAZolin 2 GM IV Premixed 50 ML IV ONE (09:00)
--- NOTE | 2018-05-16 09:08 | Progress Note-Pre Operative ---
Pre-Operative Progress Note H&P Reviewed The H&P was reviewed, patient examined and no changes noted. Time Seen by Provider: 09:01 Date H&P Reviewed: May 16, 2018 Time H&P Reviewed: 09:02 Pre-Operative Diagnosis: Venous insufficiency, CLL SUSY ROTHMAN DO May 16, 2018 09:08
--- NOTE | 2018-05-16 09:49 | Progress Note-Post Operative ---
Post-Operative Progess Note Surgeon (s)/Emergency Medical Service Manager (s) Surgeon SUSY ROTHMAN DO Emergency Medical Service Manager: none Pre-Operative Diagnosis Venous insufficiency, CLL Post-Operative Diagnosis Same Procedure & Operative Findings Date of Procedure 05/16/18 Procedure Performed/Findings Brianna-cath insertion Anesthesia Type IV sedation by WINCHMAN/CRANE OPERATOR Estimated Blood Loss Estimated blood loss (mL): less than 5ml Specimens/Packing Specimens Removed none SUSY ROTHMAN DO May 16, 2018 09:49
--- NOTE | 2018-05-16 09:50 | Discharge Inst-Surgical ---
Discharge Inst-Surgical Depart Medication/Instructions New, Converted or Re-Newed RX: Other (no Rx needed) Patient Instructions Follow up Appt: Make appointment for 1 week. [phone] Instructions: No lifting greater than 20 pounds. No strenuous activity. May shower in 24 hours, no tub bath or soaking. Use incentive spirometer at home as directed. No Smoking Skin/Wound Care: May remove bandages in am. You need to leave the Dermabond on incision it will fall off on it's own. Symptoms to Report: Appetite Changes, Extremity Discoloration, Numbness/Tingling, Swelling Increased , Bleeding Excessive, Eyesight Changes, Pain Increased, Urine Color Change, Constipation(Persistent), Fever over 101 degree F, Pain/Pressure in chest, Urinating Difficulty, Cough Up/Vomit Blood, Heart Beat Irreg/Pounding, Pain/ Pressure in jaw, Cramps in feet or legs, Lightheadedness, Pain/Pressure in shoulder, Diarrhea(Persistent), Memory Changes Suddenly, Questions/Concerns, Weight gain consecutive days, Dizziness/Fainting, Nausea/Vomiting, Shortness of Breath, Weight gain over 2 pounds If questions or concerns contact your physician Or seek help at emergency department. Activity Activity as Tolerated: Yes Activity Instructions: Avoid Stress to Incision Driving Instructions: No Driving/Refer to Dr. Santamaria Discharge Diet: No Restrictions Diet After 24 Hours: Clear Liquid if Nauseous If Any Problems/Questions/Issu: Contact Your Physician, Go to Emergency Room Skin/Wound Care Infection Signs and Symptoms: Increased Redness, Foul Odor of Wound, Increased Drainage, Skin Itchy or Has a Rash, Increased Swelling, Temperature Above 101 F Bathing Instructions: Shower Stitches/[place]/Dermabond Dis: Dermabond Ice Pack: Ice On and Off Site (as needed for pain) SUSY ROTHMAN DO May 16, 2018 09:50
[2018-05-16] MEDS ORDERED: HYDROmorphone 2 MG/ML VIAL (DILAUDID) IV ONE (10:00)
[2018-05-16] MEDS ORDERED: ONDANSETRON 4 MG/2 ML (SDV) Z0FRAN IVP PRN (10:00)
[2018-05-16 10:15] VITALS: BP 126/66
--- NOTE | 2018-05-16 10:24 | Diagnostic Imaging Report ---
INDICATION: Line placement. TECHNIQUE: Single view chest 10:07 AM. CORRELATION STUDY: 07/12/2017 FINDINGS: Heart size remains enlarged. There is presence of pulmonary vascular congestion and perihilar edema, adversely changed from prior study. Likely component of interstitial edema and mildly prominent interstitial markings. No focal consolidating infiltrate. Right-sided central line has been placed, tip projects over the low SVC. IMPRESSION: 1. Cardiac enlargement with component of pulmonary vascular congestion likely along with interstitial edema. 2. Right-sided central line is in place. Tip projected over the expected location of the SVC. Dictated by: Dictated on workstation # [id number]
[2018-05-16 10:50] VITALS: BP 128/58
[2018-05-16 10:57] VITALS: BP 128/58
--- NOTE | 2018-05-16 10:57 | NUR ---
HAS BEEN ALERT THROUGHOUT RECOVERY AND HAS DENIED COMPLAINTS. X1 LARGE AND X1 SMALL BANDAIDS D/I TO RIGHT UPPER CHEST PORT INSERTION SITE, ICE PACK ON. SKIN AROUND BANDAIDS BLANCHED FROM LOCAL USED AT SITE IN OR. REQUESTING DISMISSAL.
--- NOTE | 2018-05-16 11:00 | Anesthesia-General Post-Op ---
MAC Patient Condition Mental Status/LOC: Same as Preop Cardiovascular: Satisfactory Nausea/Vomiting: Absent Respiratory: Satisfactory Pain: Controlled Complications: Absent Post Op Complications Complications None Follow Up Care/Instructions Patient Instructions None needed. Anesthesiology Discharge Order Discharge Order Patient is doing well, no complaints, stable vital signs, no apparent adverse anesthesia problems. No complications reported per nursing. YVETTE DAVIES CRNA May 16, 2018 10:59
--- NOTE | 2018-05-16 11:43 | Diagnostic Imaging Report ---
INDICATION: Fluoroscopy for Groshong catheter placement. FINDINGS: Fluoroscopy was provided in the OR for Dr. Pulliam for Groshong catheter placement. 5 seconds of fluoroscopy was utilized. Images demonstrate a right subclavian chest wall port with the tip overlying the SVC. IMPRESSION: Fluoroscopy for Groshong catheter placement. Dictated by: Dictated on workstation # [id number]
--- NOTE | 2018-05-16 14:50 | OPERATIVE REPORT ---
DATE OF SERVICE: 05/16/2018 PREOPERATIVE DIAGNOSES: 1. Venous insufficiency. 2. Chronic lymphocytic leukemia. POSTOPERATIVE DIAGNOSES: 1. Venous insufficiency. 2. Chronic lymphocytic leukemia. PROCEDURE: Insertion of a Port-A-Cath, right subclavian vein, right anterior chest wall. SURGEON: Franklyn Pulliam DO. NAVAL SCIENCE TEACHER: None. ANESTHESIA: IV sedation by PEDIATRIC ONCOLOGY NURSE. SPECIMENS: None. BLOOD LOSS: Less than 5 mL FLUIDS: Per anesthesia. POSTOPERATIVE CONDITION: Stable. INDICATION FOR PROCEDURE: The patient is a 68-year-old male who has venous insufficiency and has a chronic lymphocytic leukemia, needs a long-term IV access for chemotherapy. FINDINGS: The patient had a Port-A-Cath placed right anterior chest wall, right subclavian vein. PROCEDURE NOTE: After informed consent was obtained, the patient was brought to the operating room, placed on the operating table in supine position, sterilely prepped and draped in normal fashion and then placed slightly Trendelenburg. Local lidocaine was used to infiltrate the right anterior chest wall towards the clavicle as well as the space to create a pocket for the port. Then using an 18 gauge fine needle with negative inspiration, advanced the needle under the clavicle. Unfortunately on the first attempt, got into the right subclavian artery, pulled this out, held pressure for 2 minutes and then attempted again and unsuccessful on the second attempt and then on the third attempt, successfully got into the vein. Good flash of blood, removed the syringe, placed a guidewire using Seldinger technique. It went in easily, get some ectopy per the anesthesiologist and backed up the wire just a little bit at this point then removed the needle, held the wire in place with a hemostat, made a stab incision at the wire with a #11 blade and then I made incision in the right anterior chest wall with a #11 blade to create a pocket, carried down through the skin into subcutaneous tissue then deepened down to subcutaneous tissue with Bovie electrocautery down to the fascia of the pectoralis major muscle. I created a pocket with Bovie electrocautery as well as blunt dissection and then tunneled the catheter from the stab incision into this pocket and then over the guidewire, placed a dilator using Seldinger technique. It went in easily, checked fluoroscopy, it was in good position. I then removed the inner portion of the dilator sheath as well as the guidewire and placed the catheter down to the dilator sheath using the Seldinger technique. It went in easily, checked with position, it was in good position, removed the external portion of the dilator sheath and then attached the catheter to the Port-A-Cath, accessed with a Morris needle, got a good flash of blood then easily flushed with saline and then again aspirated, got a good flash of blood and then flushed with 2 mL of heparin. This was then sutured in place with a 3-0 Prolene, suturing down the pectoralis major fascia. Port fit in the pocket nicely and then checked with fluoroscopy. There was no kink. The catheter coming off the port looked good and then sutured this in place, closing the deep tissue with 3-0 Vicryl, 2 interrupted subcutaneous stitches and closed the skin with 4-0 undyed Monocryl, 3 interrupted subcuticular stitches. Area was cleaned and dried. Dermabond placed as well as bandage. The patient then transferred to recovery room in stable condition. Sponge, instrument and needle count correct at the end of the case. Job ID: [id number] DocumentID: [id number] Dictated Date: 05/16/2018 10:11:36 Dish Person Date: 05/16/2018 14:50:17 Dictated By: FRANKLYN PULLIAM DO
== END 2018-05-16 10:57 | disposition home or self-care (01) ==
LOC: SDC 07:16
PROVIDERS: ATTEND Surgery
DX: I87.2 Venous insufficiency (chronic) (peripheral) (principal); C91.10 Chronic lymphocytic leukemia of B-cell type not having achieved remission; Z11.2 Encounter for screening for other bacterial diseases; Z96.653 Presence of artificial knee joint, bilateral; I10 Essential (primary) hypertension; E11.9 Type 2 diabetes mellitus without complications; Z79.4 Long term (current) use of insulin; Z79.899 Other long term (current) drug therapy
CPT/HCPCS: 71045; 82962; 87081

== ENCOUNTER 2018-05-22 15:19 | Inpatient (IN) | payer MEDICARE, OTHER ==
[~2018-05-22] VITALS: Ht 180.3 cm; Wt 131.5 kg
--- OUTSIDE RECORDS SUMMARY | 2018-05-22 15:38 | XMS REPORT | Continuity of Care Document ---
Author Author [facility] Address Unknown Phone Unavailable Allergies Active Description Code Type Severity Reaction Onset Reported/Identified Relationship to Patient Clinical Status Yes Lisinopril HCTZ Drug Allergy 12/16/2008 Yes No Known Drug Allergies [id number] Drug Allergy Unknown N/A 04/18/2018 Medications There [...] APRN 401.1 ESSENTIAL HYPERTENSION BENIGN 08/15/2008 ROSSY DISULFURIZER TENDER, SHADIA T 250.00 DIABETES MELLITUS TYPE [...] LEFT 07/22/2017 JARRETT CALLE MD Ot Z79.4 FDC (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 OF INSULIN 08/23/2017 JARRETT CALLE [...] BLD/BLD-FOR 09/23/2017 JARRETT CALLE MD Ot Z79.4 GENDER STUDIES PROFESSOR (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 OF INSULIN 09/23/2017 JARRETT CALLE [...] (PRIMARY) HYPERTENSION 12/01/2017 POLOCLIFF N Ot Z79.4 FDC (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 OF INSULIN 12/01/2017 CLFIF CUELLAR N Ot Z79.82 GENDER STUDIES PROFESSOR (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 OF ASPIRIN 12/01/2017 POLOCLIFF YOUSIF N Ot Z79.899 OTHER GENDER STUDIES PROFESSOR (CURRENT) DRUG THERAPY 12/01/2017 POLOCLIFF YOUSIF N [...] (PRIMARY) HYPERTENSION 01/11/2018 CLIFF CUELLAR Ot Z79.4 FDC (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 OF INSULIN 01/11/2018 CLIFF CUELLAR N Ot Z79.82 FDC (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 OF ASPIRIN 01/11/2018 CLIFF CUELLAR N Ot Z79.899 OTHER FDC (CURRENT) DRUG THERAPY 01/11/2018 CLIFF CUELLAR N [...] (PRIMARY) HYPERTENSION 01/31/2018 POLOCLIFF N Ot Z79.4 FDC (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 OF INSULIN 01/31/2018 POLOVANDANAAN N Ot Z79.82 GENDER STUDIES PROFESSOR (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 OF ASPIRIN 01/31/2018 POLO, BOBAN N Ot Z79.899 OTHER GENDER STUDIES PROFESSOR (CURRENT) DRUG THERAPY 01/31/2018 POLOVANDANAAN N Ot Z96.6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, BILAT 02/01/2018 POLO BOBAN N Ot D64.9 ANEMIA, UNSPECIFIED 02/01/2018 POLO, BOBAN N Ot D72.820 LYMPHOCYTOSIS (SYMPTOMATIC) 02/01/2018 POLO BOBAN N Ot E11.9 TYPE 2 DIABETES MELLITUS WITHOUT COMPLIC 02/01/2018 POLO BOBAN N Ot I10 ESSENTIAL (PRIMARY) HYPERTENSION 02/01/2018 POLO BOBAN N Ot Z79.4 FDC (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 OF INSULIN 02/01/2018 POLO BOBAN N Ot Z79.82 FDC (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 OF ASPIRIN 02/01/2018 POLO BOBAN N Ot Z79.899 OTHER GENDER STUDIES PROFESSOR (CURRENT) DRUG THERAPY 02/01/2018 POLO BOBAN N Ot Z96.6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, BILAT 03/12/2018 POLO BOBAN N Ot D64.9 ANEMIA, UNSPECIFIED 03/12/2018 POLO, BOBAN N Ot D72.820 LYMPHOCYTOSIS (SYMPTOMATIC) 03/12/2018 POLO BOBAN N Ot E11.9 TYPE 2 DIABETES MELLITUS WITHOUT COMPLIC 03/12/2018 POLO BOBAN N Ot I10 ESSENTIAL (PRIMARY) HYPERTENSION 03/12/2018 POLO BOBAN N Ot Z79.4 GENDER STUDIES PROFESSOR (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 OF INSULIN 03/12/2018 POLO, BOBAN N Ot Z79.82 GENDER STUDIES PROFESSOR (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 OF ASPIRIN 03/12/2018 POLO, BOBAN N Ot Z79.899 OTHER GENDER STUDIES PROFESSOR (CURRENT) DRUG THERAPY 03/12/2018 POLO, BOBAN N Ot Z96.6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, BILAT 04/02/2018 POLO BOBAN N Ot D64.9 ANEMIA, UNSPECIFIED 04/02/2018 POLO, BOBAN N Ot D72.820 LYMPHOCYTOSIS (SYMPTOMATIC) 04/02/2018 CLIFF CUELLAR Ot E11.9 TYPE 2 DIABETES MELLITUS WITHOUT COMPLIC 04/02/2018 CLIFF CUELLAR Pranay Ot I10 ESSENTIAL (PRIMARY) HYPERTENSION 04/02/2018 CLIFF CUELLAR Ot Z79.4 FDC (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 OF INSULIN 04/02/2018 CLIFF CUELLAR Ot Z79.82 FDC (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 OF ASPIRIN 04/02/2018 CLIFF CUELLAR Pranay Ot Z79.899 OTHER FDC (CURRENT) DRUG THERAPY 04/02/2018 CLIFF CUELLAR Ot [...] ADULT 04/18/2018 SUSY ROTHMAN DO Ot Z79.4 GENDER STUDIES PROFESSOR (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 OF INSULIN 04/18/2018 SUSY ROTHMAN DO Ot Z79.82 FDC (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 OF ASPIRIN 04/18/2018 DELMAN DO, SUSY B Ot Z79.899 OTHER FDC (CURRENT) DRUG THERAPY 04/18/2018 ANDRES ROTHMAN DOIC [...] 04/24/2018 LORNA HOLLY SUSY B Ot Z79.4 FDC (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 OF INSULIN 04/24/2018 LORNA HOLLY SUSY B Ot Z79.82 GENDER STUDIES PROFESSOR (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 OF ASPIRIN 04/24/2018 LORNA HOLLY SUSY B Ot Z79.899 OTHER FDC (CURRENT) DRUG THERAPY 04/24/2018 LORNA HOLLY SUSY B Ot Z96.6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, BILAT 04/25/2018 LISA PICKARD Ot C91.10 CHRONIC LYMPHOCYTIC LEUK OF B-CELL TYPE 04/29/2018 LESLI TATUM CHERRY PICKER OPERATOR Ot E11.9 TYPE 2 DIABETES MELLITUS WITHOUT COMPLIC 04/29/2018 RC LESLI CHERRY PICKER OPERATOR Ot I10 ESSENTIAL (PRIMARY) HYPERTENSION 04/29/2018 LESLI TATUMP Ot Z48.89 ENCOUNTER FOR OTHER SPECIFIED SURGICAL A 04/29/2018 LESLI TATUMP Ot Z85.6 PERSONAL HISTORY OF LEUKEMIA 04/29/2018 LESLI TATUM CHERRY PICKER OPERATOR Ot Z90.89 ACQUIRED ABSENCE OF OTHER ORGANS 04/29/2018 LESLI TATUMP Ot Z96.6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, BILAT 04/29/2018 LESLI TATUM CHERRY PICKER OPERATOR Ot Z98.890 OTHER SPECIFIED POSTPROCEDURAL STATES 04/30/2018 CLIFF CUELLAR Pranay Avina C91.10 CHRONIC LYMPHOCYTIC LEUK OF B-CELL TYPE 04/30/2018 POLO VANDANAIZA Pranay Ot D64.9 ANEMIA, UNSPECIFIED 04/30/2018 POLO VANDANAIZA Pranay Ot E11.9 TYPE 2 DIABETES MELLITUS WITHOUT COMPLIC 04/30/2018 POLO CLIFF Pires Ot I10 ESSENTIAL (PRIMARY) HYPERTENSION 04/30/2018 POLO CLIFF Pires Ot Z51.11 ENCOUNTER FOR ANTINEOPLASTIC CHEMOTHERAP 04/30/2018 VANDANA CUELLARIZA Pires Ot Z79.4 GENDER STUDIES PROFESSOR (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 OF INSULIN 04/30/2018 CLIFF CUELLAR Ot Z79.82 FDC (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 OF ASPIRIN 04/30/2018 POLOCLIFF Ot Z79.899 OTHER GENDER STUDIES PROFESSOR (CURRENT) DRUG THERAPY 04/30/2018 POLO CLIFF Pires [...] 05/02/2018 SUSY ROTHMAN DO B Ot Z79.4 FDC (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 OF INSULIN 05/02/2018 SUSY ROTHMAN DO B Ot Z79.82 FDC (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 OF ASPIRIN 05/02/2018 SUSY ROTHMAN DO Ot Z79.899 OTHER GENDER STUDIES PROFESSOR (CURRENT) DRUG THERAPY 05/02/2018 DELMAN DO, SUSY B Ot Z96.6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, BILAT 05/02/2018 RC, LESLI CHERRY PICKER OPERATOR Ot E11.9 TYPE 2 DIABETES MELLITUS WITHOUT COMPLIC 05/02/2018 RC, LESLI CHERRY PICKER OPERATOR Ot I10 ESSENTIAL (PRIMARY) HYPERTENSION 05/02/2018 RC LESLI CHERRY PICKER OPERATOR Ot Z48.89 ENCOUNTER FOR OTHER SPECIFIED SURGICAL A 05/02/2018 RC, LESLI CHERRY PICKER OPERATOR Ot Z85.6 PERSONAL HISTORY OF LEUKEMIA 05/02/2018 RC, LESLI CHERRY PICKER OPERATOR Ot Z90.89 ACQUIRED ABSENCE OF OTHER ORGANS 05/02/2018 RC LESLI CHERRY PICKER OPERATOR Ot Z96.6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, BILAT 05/02/2018 RC, LESLI CHERRY PICKER OPERATOR Ot Z98.890 OTHER SPECIFIED POSTPROCEDURAL STATES 05/06/2018 CLIFF CUELLAR Ot C91.10 CHRONIC LYMPHOCYTIC LEUK OF B-CELL TYPE 05/06/2018 POLOCLIFF YOUSIF Ot D64.9 ANEMIA, UNSPECIFIED 05/06/2018 CLIFF CUELLAR N Ot E11.9 TYPE 2 DIABETES MELLITUS WITHOUT COMPLIC 05/06/2018 CLIFF CUELLAR N Ot I10 ESSENTIAL (PRIMARY) HYPERTENSION 05/06/2018 CLIFF CUELLAR Ot Z51.11 ENCOUNTER FOR ANTINEOPLASTIC CHEMOTHERAP 05/06/2018 CLIFF CUELLAR Ot Z79.4 GENDER STUDIES PROFESSOR (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 OF INSULIN 05/06/2018 CLIFF CUELLAR Ot Z79.82 GENDER STUDIES PROFESSOR (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 OF ASPIRIN 05/06/2018 CLIFF CUELLAR Ot Z79.899 OTHER FDC (CURRENT) DRUG THERAPY 05/06/2018 CLIFF CUELLAR Ot [...] ANTINEOPLASTIC CHEMOTHERAP 05/07/2018 CLIFF CUELLAR Ot Z79.4 GENDER STUDIES PROFESSOR (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 OF INSULIN 05/07/2018 CLIFF CUELLAR N Ot Z79.82 GENDER STUDIES PROFESSOR (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 OF ASPIRIN 05/07/2018 CLIFF CUELLAR N Ot Z79.899 OTHER GENDER STUDIES PROFESSOR (CURRENT) DRUG THERAPY 05/07/2018 CLIFF CUELLAR N [...] ANTINEOPLASTIC CHEMOTHERAP 05/07/2018 POLOVANDANAIZA N Ot Z79.4 GENDER STUDIES PROFESSOR (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 OF INSULIN 05/07/2018 POLOCLIFF N Ot Z79.82 GENDER STUDIES PROFESSOR (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 OF ASPIRIN 05/07/2018 POLO CLIFF N Ot Z79.899 OTHER GENDER STUDIES PROFESSOR (CURRENT) DRUG THERAPY 05/07/2018 CLIFF CUELLAR N [...] TYPE 2 DIABETES MELLITUS WITHOUT COMPLIC 05/15/2018 POLOCLIFF N Ot I10 ESSENTIAL (PRIMARY) HYPERTENSION 05/15/2018 POLOCLIFF YOUSIF N Ot Z51.11 ENCOUNTER FOR ANTINEOPLASTIC CHEMOTHERAP 05/15/2018 POLOCLIFF YOUSIF Ot Z79.4 FDC (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 OF INSULIN 05/15/2018 CLIFF CUELLAR N Ot Z79.82 GENDER STUDIES PROFESSOR (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 OF ASPIRIN 05/15/2018 CLIFF CUELLAR N Ot Z79.899 OTHER FDC (CURRENT) DRUG THERAPY 05/15/2018 POLOCLIFF YOUSIF N Ot Z96.6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, BILAT 05/15/2018 DELMAN DO, SUSY B Ot Z01.818 ENCOUNTER FOR OTHER PREPROCEDURAL EXAMIN 05/16/2018 DELMAN DO, SUSY B Ot Z01.818 ENCOUNTER FOR OTHER PREPROCEDURAL EXAMIN 05/17/2018 CLIFF CUELLAR N Ot C91.10 CHRONIC LYMPHOCYTIC LEUK OF B-CELL TYPE 05/17/2018 CLIFF CUELLAR N Ot D64.9 ANEMIA, UNSPECIFIED 05/17/2018 POLOCLIFF N Ot E11.9 TYPE 2 DIABETES MELLITUS WITHOUT COMPLIC 05/17/2018 CLIFF CUELLAR N Ot I10 ESSENTIAL (PRIMARY) HYPERTENSION 05/17/2018 CLIFF CUELLAR N Ot Z51.11 ENCOUNTER FOR ANTINEOPLASTIC CHEMOTHERAP 05/17/2018 POLOCLIFF YOUSIF N Ot Z79.4 GENDER STUDIES PROFESSOR (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 OF INSULIN 05/17/2018 CLIFF CUELLAR N Ot Z79.82 FDC (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 OF ASPIRIN 05/17/2018 CLIFF CUELLAR N Ot Z79.899 OTHER GENDER STUDIES PROFESSOR (CURRENT) DRUG THERAPY 05/17/2018 POLOCLIFF N Ot Z96.6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, BILAT 05/17/2018 CLIFF CUELLAR N Ot C91.10 CHRONIC LYMPHOCYTIC LEUK OF B-CELL TYPE 05/17/2018 POLOCLIFF N Ot D64.9 ANEMIA, UNSPECIFIED 05/17/2018 POLOCLIFF N Ot E11.9 TYPE 2 DIABETES MELLITUS WITHOUT COMPLIC 05/17/2018 POLOCLIFF N Ot I10 ESSENTIAL (PRIMARY) HYPERTENSION 05/17/2018 CLIFF CUELLAR N Ot Z51.11 ENCOUNTER FOR ANTINEOPLASTIC CHEMOTHERAP 05/17/2018 VANDANA CUELLARIZA Pires Ot Z79.4 GENDER STUDIES PROFESSOR (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 OF INSULIN 05/17/2018 POLO, CLIFF Pires Ot Z79.82 FDC (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 OF ASPIRIN 05/17/2018 POLO CLIFF Pires Ot Z79.899 OTHER GENDER STUDIES PROFESSOR (CURRENT) DRUG THERAPY 05/17/2018 VANDANA CUELLARIZA Pires Ot Z96.6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, BILAT 05/19/2018 SUSY ROTHMAN DO Ot C91.10 CHRONIC LYMPHOCYTIC LEUK OF B-CELL TYPE 05/19/2018 SUSY ROTHMAN DO Ot E11.9 TYPE 2 DIABETES MELLITUS WITHOUT COMPLIC 05/19/2018 SUSY ROTHMAN DO Ot I10 ESSENTIAL (PRIMARY) HYPERTENSION 05/19/2018 SUSY ROTHMAN DO Ot I87.2 VENOUS INSUFFICIENCY (CHRONIC) (PERIPHER 05/19/2018 SUSY ROTHMAN DO Ot Z11.2 ENCOUNTER FOR SCREENING FOR OTHER BACTER 05/19/2018 SUSY ROTHMAN DO Ot Z79.4 GENDER STUDIES PROFESSOR (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 OF INSULIN 05/19/2018 SUSY ROTHMAN DO Ot Z79.899 OTHER GENDER STUDIES PROFESSOR (CURRENT) DRUG THERAPY 05/19/2018 SUSY ROTHMAN DO Ot Z96.6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, BILAT Procedures Code Description [place] [address] A1C (IN-HOUSE) 05/15/2012 52998 ROUTINE VENIPUNCTURE 05/25/2012 74584 CBC 05/25/2012 98939 CMP 05/25/2012 75549 LIPID PANEL 05/25/2012 1258185 GFR CALC (RESULT ONLY) 05/25/2012 42916 GASTRIN 05/28/2012 76384 A1C (IN-HOUSE) 09/04/2012 74897 A1C (IN-HOUSE) 12/12/2012 73819 MICRO ALBUMIN-IN HOUSE 12/12/2012 00235 MICROALBUMIN 12/12/2012 66306 A1C (IN-HOUSE) 04/01/2013 04364 A1C (IN-HOUSE) 07/15/2013 90246 A1C (IN-HOUSE) 11/15/2013 39669 ROUTINE VENIPUNCTURE 11/20/2013 02628 CBC 11/20/2013 3376711 GFR CALC (RESULT ONLY) 11/20/2013 59560 CMP 11/20/2013 76441 LIPID PANEL 11/20/2013 41111 MICRO ALBUMIN-IN HOUSE 02/17/2014 69305 A1C (IN-HOUSE) 02/17/2014 02943 MICROALBUMIN 02/17/2014 [id number] 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 Capillary blood glucose measurement by glucometer (mass/volume) [...] ABO+Rh group OP NRG Transfusion band number [id number] NRG Blood group antibody screen NEGATIVE NRG Blood lymphocytes count by flow cytometry (number/volume) - 09/19/17 13:50 Pathology consultation and report [id number] Capillary blood glucose measurement by glucometer [...] 149 mg/dL 70-110 Gram stain microscopy - 02/24/19 15:00 Gram stain microscopy No bacteria seen NRG Bacteria identification in wound by culture - 04/29/18 15:00 Bacteria identification in wound by culture NSF NRG FREE TEXT EXTERNAL NO SUSCEPTIBILITIES SET UP NRG QUANTITY OF GROWTH Isolated NRG Capillary blood glucose measurement by glucometer (mass/volume) - 05/16/18 07: 29 Capillary blood glucose measurement by glucometer (mass/volume) 164 mg/dL 70-110 Methicillin resistant Staphylococcus aureus (MRSA) screening culture - 07:50 Methicillin resistant Staphylococcus aureus (MRSA) screening culture NEG NRG Encounters ACCT No. Visit Date/Time Discharge Status Pt. Type Provider Facility Loc./Unit Complaint [id number] 04/25/2014 09:09:00 04/25/2014 23:59:59 CLS Outpatient ADAM DRAPER DO [id number] 03/21/2014 10:20:00 03/21/2014 23:59:59 CLS Outpatient ROSSY DISULFURIZER TENDER, SHADIA Sania [id number] 02/17/2014 10:13:00 02/17/2014 23:59:59 CLS Outpatient ROSSY BARNHART SHADIA Sania [id number] 12/16/2013 09:09:00 12/16/2013 23:59:59 CLS Outpatient ROSSY BARNHART SHADIA Sania [id number] 11/20/2013 08:07:00 11/20/2013 23:59:59 CLS Outpatient ROSSY BARNHART SHADIA Sania [id number] 11/15/2013 12:13:00 11/15/2013 23:59:59 CLS Outpatient ROSSY DISULFURIZER TENDER, SHADIA Sania [id number] 07/15/2013 09:15:00 07/15/2013 23:59:59 CLS Outpatient ADAM DRAPER DO [id number] 05/03/2013 08:48:00 05/03/2013 23:59:59 CLS Outpatient ZOE REED MD [id number] 04/01/2013 10:04:00 04/01/2013 23:59:59 CLS Outpatient SHADIA BLAIR APRN [id number] 01/25/2013 08:54:00 01/25/2013 23:59:59 CLS Outpatient ADAM DRAPER DO [id number] 12/26/2012 10:43:00 12/26/2012 23:59:59 CLS Outpatient SHADIA BLAIR APRN [id number] 12/12/2012 14:22:00 12/12/2012 23:59:59 CLS Outpatient ROSSY DISULFURIZER TENDER, SHADIA Sania [id number] 09/04/2012 14:22:00 09/04/2012 23:59:59 CLS Outpatient ADAM DRAPER DO [id number] 05/30/2012 16:04:00 05/30/2012 23:59:59 CLS Outpatient [id number] 05/25/2012 08:09:00 05/25/2012 23:59:59 CLS Outpatient SHADIA BLAIR APRN [id number] 05/15/2012 14:05:00 05/15/2012 23:59:59 CLS Outpatient [id number] 02/08/2012 10:02:00 02/08/2012 23:59:59 CLS Outpatient [id number] 01/11/2012 11:51:00 01/11/2012 23:59:59 CLS Outpatient SHADIA BLAIR APRN [id number] 06/27/2012 10:09:00 Document Registration [id number] 05/16/2018 07:16:00 05/16/2018 10:57:00 DIS Outpatient SUSY ROTHMAN DO B [facility] SDC LEUKEMIA [id number] 05/15/2018 05:44:00 05/15/2018 11:07:00 DIS Outpatient LORNA HOLLY SUSY B [facility] PREOP LEUKEMIA [id number] 05/09/2018 12:44:00 05/09/2018 23:59:59 CLS Outpatient CLIFF CUELLAR [facility] ONC [id number] 04/25/2018 10:12:00 05/06/2018 00:01:00 DIS Outpatient CLIFF CUELLAR [facility] ONC [id number] 04/29/2018 14:04:00 04/29/2018 15:21:00 DIS Emergency RCLESLIP [facility] ER POST OP/INCISION OPENED UP [id number] 04/18/2018 07:59:00 04/18/2018 12:25:00 DIS Outpatient LORNA HOLLY SUSY B [facility] GENERALIZED ENLARGED LYMPH NODES, CLL [id number] 04/13/2018 05:33:00 04/13/2018 14:59:00 DIS Outpatient LORNA HOLLY SUSY B [facility] PREOP GENERALIZED ENLARGED LYMPH NODES, CLL [id number] 04/04/2018 09:55:00 04/04/2018 23:59:59 CLS Outpatient LISA PICKARD [facility] RAD IMAGING STUDY TO RESTAGE NEOPLASM [id number] 01/29/2018 08:55:00 01/31/2018 00:01:00 DIS Outpatient CLIFF CUELLAR [facility] ONC [id number] 01/02/2018 12:42:00 01/02/2018 23:59:59 CLS Outpatient JARRETT CALLE MD [facility] RAD 715.16 M17.0 [id number] 11/10/2017 11:23:00 11/10/2017 12:49:00 DIS Outpatient JARRETT CALLE MD [facility] REHAB L TKA [id number] 11/07/2017 14:25:00 11/07/2017 23:59:59 CLS Outpatient CLIFF CUELLAR [facility] RAD LYMPHOCYTOSIS, LYMPHADENOPATHY [id number] 09/20/2017 05:51:00 09/23/2017 11:10:00 DIS Inpatient JARRETT ACLLE MD [facility] 4TH OSTEOARTHRITIS RIGHT KNEE [id number] 09/19/2017 13:29:00 09/19/2017 23:59:59 CLS Outpatient TR FAY MD [facility] LAB CLL [id number] 09/19/2017 08:00:00 09/19/2017 09:53:00 DIS Outpatient JARRETT CALLE MD [facility] REHAB L TKA; BILATERAL PRIMARY OA OF KNEE [id number] 09/12/2017 13:20:00 09/12/2017 13:55:00 DIS Outpatient JARRETT CALLE MD [facility] PREOP OSTEOARTHRITIS RIGHT KNEE [id number] 07/19/2017 06:00:00 07/22/2017 12:00:00 DIS Inpatient JARRETT CALLE MD [facility] 4TH LEFT KNEE OSTEOARTHRITIS [id number] 07/12/2017 10:04:00 07/12/2017 11:10:00 DIS Outpatient ALVA ALANIZ, JARRETT Chou [facility] PREOP LEFT TOTAL KNEE REPLACEMENT [id number] 07/16/2016 11:06:00 Document Registration [id number] 05/17/2018 11:40:00 05/17/2018 23:59:59 CLS Outpatient SHADIA BLAIR APRN [facility] [place]
[2018-05-22 15:51] LABS: BASOPHILS % (AUTO) 0 % (0-10); EOSINOPHILS % (AUTO) 0 % (0-10); HEMATOCRIT 34 % (40-54); HEMOGLOBIN 11.4 G/DL (13.3-17.7); LYMPHOCYTES # (AUTO) 2.4 X 10^3 (1.0-4.0); LYMPHOCYTES % (AUTO) 68 % (12-44); MEAN CORPUSCULAR HEMOGLOBIN 29 PG (25-34); MEAN CORPUSCULAR HGB CONC 33 G/DL (32-36); MEAN CORPUSCULAR VOLUME 87 FL (80-99); MONOCYTES # (AUTO) 0.2 X 10^3 (0.0-1.0); MONOCYTES % (AUTO) 7 % (0-12); NEUTROPHILS # (AUTO) 0.9 X 10^3 (1.8-7.8); NEUTROPHILS % (AUTO) 25 % (42-75); PLATELET COUNT 173 10^3/uL (130-400); RED CELL DISTRIBUTION WIDTH 13.7 % (10.0-14.5); WHITE BLOOD COUNT 3.5 10^3/uL (4.3-11.0)
--- NOTE | 2018-05-22 15:57 | ED Cough/URI ---
General Stated Complaint: PNEUMONIA NOT GETTING BETTER Source: patient Exam Limitations: no limitations History of Present Illness Date Seen by Provider: May 22, 2018 Time Seen by Provider: 15:55 Initial Comments To ER with a one-week history of cough. He was initially seen at [facility]. Failed to improve. Was then seen at [facility] urgent care on Monday05/20/18. He's been following up daily and receiving daily injections of Rocephin, he is also got an inhaler and steroids and Levaquin without improvement. He tested positive apparently for influenza, unknown whether aorta B, is not on Tamiflu. Also has a history of chronic lymphocytic leukemia and is scheduled to restart chemotherapy today but was unable to do so due to the current illness (follows with Dr. Samuel). He was sent here from [facility] urgent care today. Timing/Duration: week, getting worse Severity/Quality: productive cough Associated Symptoms: cough, fever/chills, wheezing Allergies and Home Medications Allergies Coded Allergies: No Known Drug Allergies (Unverified , 04/18/18) Home Medications Amlodipine Besylate 5 Mg Tablet, 5 MG PO DAILY, (Reported) Aspirin 81 Mg Tablet.dr, 81 MG PO DAILY, (Reported) Glimepiride 4 Mg Tablet, 4 MG PO BID, (Reported) Insulin Aspart 300 Units/3 Ml Solution, 15 UNITS SQ BID WITH MEALS Prescribed by: RONNIE SUN on 07/22/17 0822 Insulin Detemir 100 Unit/1 Ml Insuln.pen, 48 UNIT SQ BID, (Reported) Krill/Om-3/Dha/Epa/Phospho/Ast 1 Each Capsule, 1 EACH PO DAILY, (Reported) Lisinopril/Hydrochlorothiazide 1 Each Tablet, 1 TAB PO BID, (Reported) Lovastatin 20 Mg Tablet, 20 MG PO DAILY, (Reported) Metformin HCl 1,000 Mg Tablet, 1,000 MG PO BID, (Reported) Metoprolol Tartrate 50 Mg Tablet, 50 MG PO BID, (Reported) Oxycodone HCl/Acetaminophen 1 Each Tablet, 1 EACH PO Q4H Prescribed by: JARRETT CALLE on 09/20/17 0720 Patient Home Medication List Home Medication List Reviewed: Yes Review of Systems Review of Systems Constitutional: see HPI, chills, fever EENTM: see HPI Respiratory: see HPI, cough Cardiovascular: no symptoms reported Genitourinary: no symptoms reported Musculoskeletal: no symptoms reported Skin: no symptoms reported Psychiatric/Neurological: No Symptoms Reported Hematologic/Lymphatic: No Symptoms Reported Immunological/Allergic: no symptoms reported Past Uxcvcrg-Vuwaeb-Xlwtbt Hx Patient Social History Alcohol Beverage of Choice: Beer 2nd Hand Smoke Exposure: No Recent Foreign Travel: No Contact w/Someone Who Travel: No Recent Hopitalizations: No Immunizations Up To Date Tetanus Booster (TDap): Unknown Seasonal Allergies Seasonal Allergies: No Past Medical History Surgeries: Yes (bilat total knee, lymph node removal) Tonsillectomy Respiratory: No Cardiac: Yes Hypertension Neurological: No Sexually Transmitted Disease: No HIV/AIDS: No Genitourinary: No Gastrointestinal: No Musculoskeletal: Yes (OSTEOARTHRITIS) Arthritis Endocrine: Yes Diabetes, Non-Insulin dep HEENT: Yes (BILAT CATARACTS REMOVED, BOTTOM FRONT 4 TEETH ARE LOOSE) Cataract Cancer: Yes Leukemia Psychosocial: No Integumentary: No Blood Disorders: No Family Medical History Dementia 19 MOTHER Diabetes mellitus G8 BROTHER G8 SISTER Hypertension G8 BROTHER Respiratory disorder 19 FATHER (lung cancer) Physical Exam Vital Signs - First Documented 05/22/18 16:28 Pulse Ox 97 O2 Delivery Room Air Capillary Refill : Height: 5'11.00" Weight: 290lbs. 0.0oz. 131.845200oy; 40.5 BMI Method:Stated General Appearance: WD/WN, no apparent distress Eyes: Bilateral Eye Normal Inspection, Bilateral Eye PERRL, Bilateral Eye EOMI HEENT: PERRL/EOMI, normal ENT inspection Neck: non-tender, full range of motion Respiratory: no respiratory distress, no accessory muscle use, crackles Cardiovascular: regular rate, rhythm, no murmur Gastrointestinal: normal bowel sounds, non tender, soft Neurologic/Psychiatric: alert, normal mood/affect, oriented x 3 Skin: normal color, warm/dry Focused Exam Lactate Level 05/22/18 15:30: Lactic Acid Level 1.71 Lactic Acid Level Laboratory Tests Test 05/22/18 15:30 Lactic Acid Level 1.71 MMOL/L (0.50-2.00) Progress/Results/Core Measures Suspected Sepsis SIRS Temperature: Pulse: Respiratory Rate: Laboratory Tests 05/22/18 15:30: White Blood Count 3.5L Blood Pressure / Mean: 05/22/18 15:30: Lactic Acid Level 1.71 Laboratory Tests 05/22/18 15:30: Creatinine 1.08, INR Comment 1.0, Platelet Count 173, Total Bilirubin 0.4 Results/Orders Lab Results Laboratory Tests Test 05/22/18 15:30 05/22/18 15:33 Range/Units White Blood Count 3.5 L 4.3-11.0 10^3/uL Red Blood Count 3.94 L 4.35-5.85 10^6/uL Hemoglobin 11.4 L 13.3-17.7 G/DL Hematocrit 34 L 40-54 % Mean Corpuscular Volume 87 80-99 FL Mean Corpuscular Hemoglobin 29 25-34 PG Mean Corpuscular Hemoglobin Concent 33 32-36 G/DL Red Cell Distribution Width 13.7 10.0-14.5 % Platelet Count 173 130-400 10^3/uL Mean Platelet Volume 10.0 7.4-10.4 FL Neutrophils (%) (Auto) 25 L 42-75 % Lymphocytes (%) (Auto) 68 H 12-44 % Monocytes (%) (Auto) 7 0-12 % Eosinophils (%) (Auto) 0 0-10 % Basophils (%) (Auto) 0 0-10 % Neutrophils # (Auto) 0.9 L 1.8-7.8 X 10^3 Lymphocytes # (Auto) 2.4 1.0-4.0 X 10^3 Monocytes # (Auto) 0.2 0.0-1.0 X 10^3 Eosinophils # (Auto) 0.0 0.0-0.3 10^3/uL Basophils # (Auto) 0.0 0.0-0.1 10^3/uL Prothrombin Time 13.5 12.2-14.7 SEC INR Comment 1.0 0.8-1.4 Activated Partial Thromboplast Time 37 H 24-35 SEC Sodium Level 130 L 135-145 MMOL/L Potassium Level 4.0 3.6-5.0 MMOL/L Chloride Level 96 L 98-107 MMOL/L Carbon Dioxide Level 23 21-32 MMOL/L Anion Gap 11 5-14 MMOL/L Blood Urea Nitrogen 17 7-18 MG/DL Creatinine 1.08 0.60-1.30 MG/DL Estimat Glomerular Filtration Rate > 60 BUN/Creatinine Ratio 16 Glucose Level 52 *L 70-105 MG/DL Lactic Acid Level 1.71 0.50-2.00 MMOL/L Calcium Level 8.7 8.5-10.1 MG/DL Corrected Calcium 8.6 8.5-10.1 MG/DL Total Bilirubin 0.4 0.1-1.0 MG/DL Aspartate Amino Transf (AST/SGOT) 36 H 5-34 U/L Alanine Aminotransferase (ALT/SGPT) 22 0-55 U/L Alkaline Phosphatase 82 40-136 U/L Troponin I < 0.028 <0.028 NG/ML Total Protein 6.7 6.4-8.2 GM/DL Albumin 4.1 3.2-4.5 GM/DL Glucometer 80 70-110 MG/DL My Orders Orders - JESUS BUCIO APRN Cbc With Automated Diff (05/22/18 15:) Comprehensive Metabolic Panel (05/22/18 15:) Blood Culture (05/22/18 15:) Sputum Culture (05/22/18 15:) Urinalysis (05/22/18:) Urine Culture (05/22/18:) Protime With Inr (05/22/18:) Partial Thromboplastin Time (05/22/18 15:) Chest 1 View, Ap/Pa Only (05/22/18 15:) Saline Lock/Iv-Start (05/22/18 15:) Saline Lock/Iv-Start (05/22/18 15:) Troponin I (05/22/18 15:26) Vital Signs Adult Sepsis Patie Q15M (05/22/18 15:26) O2 (05/22/18 15:26) Remove Rings In Anticipation O (05/22/18 15:26) Lactic Acid Analyzer (05/22/18 15:26) Albuterol/Ipra Inhalation Soln (Duoneb I (05/22/18 16:00) Svn Small Volume Nebulizer (05/22/18 15:46) Medications Given in ED Current Medications Medications Dose Ordered Sig/Stuart Route Start Time Stop Time Status Last Admin Dose Admin Albuterol/ Ipratropium 3 ml ONCE ONCE INH 05/22/18 16:00 05/22/18 16:01 DC 05/22/18 16:28 3 ML Vital Signs/I&O 05/22/18 16:28 Pulse Ox 97 O2 Delivery Room Air Capillary Refill : Diagnostic Imaging Diagonstic Imaging: Xray Plain Films/CT/US/NM/MRI: chest Comments NAME: SORAYA VAZQUEZ [facility] REC#: [id number] PT STATUS: REG ER : 1950 PHYSICIAN: JESUS BUCIO APRN ADMIT DATE: 05/22/18/ER Draft Date of Exam:05/22/18 CHEST 1 VIEW, AP/PA ONLY INDICATION: Influenza and pneumonia. TIME OF EXAM: 03:51 p.m. Correlation is made with prior study from 05/16/2018. The heart size is stable. There are bilateral perihilar and bibasilar pulmonary infiltrates, greater on the right. No effusion or pneumothorax is seen. Right chest wall port has tip overlying the SVC. IMPRESSION: Bilateral pulmonary infiltrates, right greater. This appears increased when compared with study six days earlier. Dictated on workstation # [id number] Dict: 05/22/18 1558 Trans: 05/22/18 1601 [facility] [id number] Interpreted by: KEVEN CONRAD MD Electronically signed by: Departure Communication (Admissions) Time/Spoke to Admitting Phy: 16:37 Chest x-ray shows worsening infiltrates. Given the 3 days of intramuscular Rocephin plus Levaquin in the outpatient setting and failure to improve he'll need to be admitted. We'll use Zosyn. Pneumonia protocol. Spoke with Dr. Sesay and she agrees with this plan. Impression Primary Impression: Pneumonia Qualified Codes: J18.9 - Pneumonia, unspecified organism Additional Impression: CLL (chronic lymphocytic leukemia) Disposition: ADMITTED INPATIENT Condition: Stable Admissions Decision to Admit Reason: Admit from ER (General) Decision to Admit/Date: May 22, 2018 Time/Decision to Admit Time: 16:11 Departure-Patient Inst. Referrals: [facility] (PCP/Family) Primary Care Physician JESUS BUCIO APRN May 22, 2018 15:57
[2018-05-22] MEDS ORDERED: RT-ALBUTEROL/IPRATROPIUM 3 ML (DUONEB) VIAL INH ONE (16:00)
--- NOTE | 2018-05-22 16:01 | Diagnostic Imaging Report ---
INDICATION: Influenza and pneumonia. TIME OF EXAM: 03:51 p.m. Correlation is made with prior study from 05/16/2018. The heart size is stable. There are bilateral perihilar and bibasilar pulmonary infiltrates, greater on the right. No effusion or pneumothorax is seen. Right chest wall port has tip overlying the SVC. IMPRESSION: Bilateral pulmonary infiltrates, right greater. This appears increased when compared with study six days earlier. Dictated by: Dictated on workstation # [id number]
[2018-05-22 16:04] LABS: PROTHROMBIN TIME PATIENT 13.5 SEC (12.2-14.7)
[2018-05-22 16:12] LABS: ALANINE AMINOTRANSFERASE 22 U/L (0-55); ALBUMIN 4.1 GM/DL (3.2-4.5); ALKALINE PHOSPHATASE 82 U/L (40-136); BILIRUBIN,TOTAL 0.4 MG/DL (0.1-1.0); BUN/CREATININE RATIO 16; CALCIUM 8.7 MG/DL (8.5-10.1); CARBON DIOXIDE 23 MMOL/L (21-32); CHLORIDE 96 MMOL/L (98-107); CREATININE SERUM 1.08 MG/DL (0.60-1.30); GFR ESTIMATED > 60; SODIUM 130 MMOL/L (135-145); TOTAL PROTEIN 6.7 GM/DL (6.4-8.2)
[2018-05-22 16:33] LABS: GLUCOSE 52 MG/DL (70-105)
[2018-05-22] MEDS ORDERED: DEXTROSE 50% 50 ML (IMS) SYR IV ONE (16:45)
[2018-05-22] MEDS ORDERED: PIPERACILLIN/TAZO 4.5 GM/NS 100 ML IV NR ×2 (17:36)
[2018-05-22 17:37] VITALS: BP 152/60
[2018-05-22] MEDS ORDERED: ACETAMINOPHEN 325 MG TABLET PO PRN (17:45)
[2018-05-22] MEDS ORDERED: CATHETER FLUSH 10 ML SYR IV PRN (17:45)
[2018-05-22] MEDS: NS IV 1000 ML 1,000 ML IV SCH (18:22)
[2018-05-22] MEDS: methylPREDNISolone 125 MG (Solu-MEDROL) VIAL IV SCH (18:23)
--- OUTSIDE RECORDS SUMMARY | 2018-05-22 18:50 | XMS REPORT | Continuity of Care Document ---
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 PRESS FEEDER, SHADIA T 250.00 DIABETES MELLITUS TYPE 2 [...] LEFT 07/22/2017 JARRETT CALLE MD Ot Z79.4 USP (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 OF INSULIN 08/23/2017 JARRETT CALLE [...] BLD/BLD-FOR 09/23/2017 JARRETT CALLE MD Ot Z79.4 LEARNING SUPPORT SPECIALIST (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 OF INSULIN 09/23/2017 JARRETT CALLE [...] (PRIMARY) HYPERTENSION 12/01/2017 POLOCLIFF N Ot Z79.4 USP (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 OF INSULIN 12/01/2017 CLIFF CUELLAR N Ot Z79.82 LEARNING SUPPORT SPECIALIST (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 OF ASPIRIN 12/01/2017 POLOCLIFF YOUSIF N Ot Z79.899 OTHER LEARNING SUPPORT SPECIALIST (CURRENT) DRUG THERAPY 12/01/2017 POLOCLIFF YOUSIF N [...] (PRIMARY) HYPERTENSION 01/11/2018 CLIFF CUELLAR Ot Z79.4 USP (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 OF INSULIN 01/11/2018 CLIFF CUELLAR N Ot Z79.82 USP (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 OF ASPIRIN 01/11/2018 CLIFF CUELLAR N Ot Z79.899 OTHER USP (CURRENT) DRUG THERAPY 01/11/2018 CLIFF CUELLAR N [...] (PRIMARY) HYPERTENSION 01/31/2018 POLOCLIFF N Ot Z79.4 USP (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 OF INSULIN 01/31/2018 POLOVANDANAAN N Ot Z79.82 LEARNING SUPPORT SPECIALIST (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 OF ASPIRIN 01/31/2018 POLO, BOBAN N Ot Z79.899 OTHER LEARNING SUPPORT SPECIALIST (CURRENT) DRUG THERAPY 01/31/2018 POLOVANDANAAN N Ot Z96.6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, BILAT 02/01/2018 POLO BOBAN N Ot D64.9 ANEMIA, UNSPECIFIED 02/01/2018 POLO, BOBAN N Ot D72.820 LYMPHOCYTOSIS (SYMPTOMATIC) 02/01/2018 POLO BOBAN N Ot E11.9 TYPE 2 DIABETES MELLITUS WITHOUT COMPLIC 02/01/2018 POLO BOBAN N Ot I10 ESSENTIAL (PRIMARY) HYPERTENSION 02/01/2018 POLO BOBAN N Ot Z79.4 USP (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 OF INSULIN 02/01/2018 POLO BOBAN N Ot Z79.82 USP (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 OF ASPIRIN 02/01/2018 POLO BOBAN N Ot Z79.899 OTHER LEARNING SUPPORT SPECIALIST (CURRENT) DRUG THERAPY 02/01/2018 POLO BOBAN N Ot Z96.6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, BILAT 03/12/2018 POLO BOBAN N Ot D64.9 ANEMIA, UNSPECIFIED 03/12/2018 POLO, BOBAN N Ot D72.820 LYMPHOCYTOSIS (SYMPTOMATIC) 03/12/2018 POLO BOBAN N Ot E11.9 TYPE 2 DIABETES MELLITUS WITHOUT COMPLIC 03/12/2018 POLO BOBAN N Ot I10 ESSENTIAL (PRIMARY) HYPERTENSION 03/12/2018 POLO BOBAN N Ot Z79.4 LEARNING SUPPORT SPECIALIST (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 OF INSULIN 03/12/2018 POLO, BOBAN N Ot Z79.82 LEARNING SUPPORT SPECIALIST (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 OF ASPIRIN 03/12/2018 POLO, BOBAN N Ot Z79.899 OTHER LEARNING SUPPORT SPECIALIST (CURRENT) DRUG THERAPY 03/12/2018 POLO, BOBAN N Ot Z96.6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, BILAT 04/02/2018 POLO BOBAN N Ot D64.9 ANEMIA, UNSPECIFIED 04/02/2018 POLO, BOBAN N Ot D72.820 LYMPHOCYTOSIS (SYMPTOMATIC) 04/02/2018 CLIFF CUELLAR Ot E11.9 TYPE 2 DIABETES MELLITUS WITHOUT COMPLIC 04/02/2018 CLIFF CUELLAR Pranay Ot I10 ESSENTIAL (PRIMARY) HYPERTENSION 04/02/2018 CLIFF CUELLAR Ot Z79.4 USP (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 OF INSULIN 04/02/2018 CLIFF CUELLAR Ot Z79.82 USP (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 OF ASPIRIN 04/02/2018 CLIFF CUELLAR Pranay Ot Z79.899 OTHER USP (CURRENT) DRUG THERAPY 04/02/2018 CLIFF CUELLAR Ot [...] ADULT 04/18/2018 SUSY ROTHMAN DO Ot Z79.4 LEARNING SUPPORT SPECIALIST (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 OF INSULIN 04/18/2018 SUSY ROTHMAN DO Ot Z79.82 USP (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 OF ASPIRIN 04/18/2018 DELMAN DO, SUSY B Ot Z79.899 OTHER USP (CURRENT) DRUG THERAPY 04/18/2018 ANDRES ROTHMAN DOIC B Ot Z96.6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, BILAT 04/24/2018 LORNA HOLLY SUSY B Ot C91.10 CHRONIC LYMPHOCYTIC LEUK OF B-CELL TYPE 04/24/2018 LORNA HOLLY SUSY B Ot E11.40 TYPE 2 DIABETES MELLITUS WITH DIABETIC N 04/24/2018 LORNA HOLLYSUSY Ot E66.01 MORBID (SEVERE) OBESITY DUE TO EXCESS CA 04/24/2018 LORNA HLOLY SUSY B Ot E78.5 HYPERLIPIDEMIA, UNSPECIFIED 04/24/2018 LORNA HOLLYANDRESIC B Ot I10 ESSENTIAL (PRIMARY) HYPERTENSION 04/24/2018 LORNA HOLLY SUSY B Ot R59.1 GENERALIZED ENLARGED LYMPH NODES 04/24/2018 LORNA HOLLY SUSY B Ot Z11.2 ENCOUNTER FOR SCREENING FOR OTHER BACTER 04/24/2018 LORNA HOLLYSUSY Ot Z68.39 BODY MASS INDEX (BMI) 39.0-39.9, ADULT 04/24/2018 LORNA HOLLY SUSY B Ot Z79.4 USP (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 OF INSULIN 04/24/2018 LORNA HOLLY SUSY B Ot Z79.82 LEARNING SUPPORT SPECIALIST (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 OF ASPIRIN 04/24/2018 LORNA HOLLY SUSY B Ot Z79.899 OTHER USP (CURRENT) DRUG THERAPY 04/24/2018 LORNA HOLLY SUSY B Ot Z96.6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, BILAT 04/25/2018 LISA PICKARD Ot C91.10 CHRONIC LYMPHOCYTIC LEUK OF B-CELL TYPE 04/29/2018 LESLI TATUM MAN[employer]ING [employer] CONTROLLER Ot E11.9 TYPE 2 DIABETES MELLITUS WITHOUT COMPLIC 04/29/2018 RC LESLI [employer]OLLER Ot I10 ESSENTIAL (PRIMARY) HYPERTENSION 04/29/2018 LESLI TATUMP Ot Z48.89 ENCOUNTER FOR OTHER SPECIFIED SURGICAL A 04/29/2018 LESLI TATUMP Ot Z85.6 PERSONAL HISTORY OF LEUKEMIA 04/29/2018 LESLI [employer]ATUM [employer]ER Ot Z90.89 ACQUIRED ABSENCE OF OTHER ORGANS 04/29/2018 LESLI TATUMP Ot Z96.6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, BILAT 04/29/2018 LESLI [employer]ATUM [employer]OLLER Ot Z98.890 OTHER SPECIFIED POSTPROCEDURAL STATES 04/30/2018 CLIFF CUELLAR Pranay Avina C91.10 CHRONIC LYMPHOCYTIC LEUK OF B-CELL TYPE 04/30/2018 POLO VANDANAIZA Pranay Ot D64.9 ANEMIA, UNSPECIFIED 04/30/2018 POLO VANDANAIZA Pranay Ot E11.9 TYPE 2 DIABETES MELLITUS WITHOUT COMPLIC 04/30/2018 POLO CLIFF Pires Ot I10 ESSENTIAL (PRIMARY) HYPERTENSION 04/30/2018 POLO CLIFF Pires Ot Z51.11 ENCOUNTER FOR ANTINEOPLASTIC CHEMOTHERAP 04/30/2018 VANDANA CUELLARIZA Pires Ot Z79.4 LEARNING SUPPORT SPECIALIST (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 OF INSULIN 04/30/2018 CLIFF CUELLAR Ot Z79.82 USP (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 OF ASPIRIN 04/30/2018 POLOCLIFF Ot Z79.899 OTHER LEARNING SUPPORT SPECIALIST (CURRENT) DRUG THERAPY 04/30/2018 POLO CLIFF Pires [...] 05/02/2018 SUSY ROTHMAN DO B Ot Z79.4 USP (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 OF INSULIN 05/02/2018 SUSY ROTHMAN DO B Ot Z79.82 USP (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 OF ASPIRIN 05/02/2018 SUSY ROTHMAN DO Ot Z79.899 OTHER LEARNING SUPPORT SPECIALIST (CURRENT) DRUG THERAPY 05/02/2018 DELMAN DO, SUSY B Ot Z96.6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, BILAT 05/02/2018 RC, LESLI MANU[employer]ING [employer] CONTROLLER Ot E11.9 TYPE 2 DIABETES MELLITUS WITHOUT COMPLIC 05/02/2018 RC, LESLI MANU[employer]ING [employer] CONTROLLER Ot I10 ESSENTIAL (PRIMARY) HYPERTENSION 05/02/2018 RC LESLI MAN[employer]ING [employer] CONTROLLER Ot Z48.89 ENCOUNTER FOR OTHER SPECIFIED SURGICAL A 05/02/2018 RC, LESLI [employer]ING [employer] CONTROLLER Ot Z85.6 PERSONAL HISTORY OF LEUKEMIA 05/02/2018 RC, LESLI MANU[employer]ING [employer]OLLER Ot Z90.89 ACQUIRED ABSENCE OF OTHER ORGANS 05/02/2018 RC LESLI MAN[employer]ING [employer] CONTROLLER Ot Z96.6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, BILAT 05/02/2018 RC, LESLI [employer]ING [employer]OLLER Ot Z98.890 OTHER SPECIFIED POSTPROCEDURAL STATES 05/06/2018 CLIFF CUELLAR Ot C91.10 CHRONIC LYMPHOCYTIC LEUK OF B-CELL TYPE 05/06/2018 POLOCLIFF YOUSIF Ot D64.9 ANEMIA, UNSPECIFIED 05/06/2018 CLIFF CUELLAR N Ot E11.9 TYPE 2 DIABETES MELLITUS WITHOUT COMPLIC 05/06/2018 CLIFF CUELLAR N Ot I10 ESSENTIAL (PRIMARY) HYPERTENSION 05/06/2018 CLIFF CUELLAR Ot Z51.11 ENCOUNTER FOR ANTINEOPLASTIC CHEMOTHERAP 05/06/2018 CLIFF CUELLAR Ot Z79.4 LEARNING SUPPORT SPECIALIST (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 OF INSULIN 05/06/2018 CLIFF CUELLAR Ot Z79.82 LEARNING SUPPORT SPECIALIST (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 OF ASPIRIN 05/06/2018 CLIFF CUELLAR Ot Z79.899 OTHER USP (CURRENT) DRUG THERAPY 05/06/2018 CLIFF CUELLAR Ot [...] ANTINEOPLASTIC CHEMOTHERAP 05/07/2018 CLIFF CUELLAR Ot Z79.4 LEARNING SUPPORT SPECIALIST (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 OF INSULIN 05/07/2018 CLIFF CUELLAR N Ot Z79.82 LEARNING SUPPORT SPECIALIST (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 OF ASPIRIN 05/07/2018 CLIFF CUELLAR N Ot Z79.899 OTHER LEARNING SUPPORT SPECIALIST (CURRENT) DRUG THERAPY 05/07/2018 CLIFF CUELLAR N [...] ANTINEOPLASTIC CHEMOTHERAP 05/07/2018 POLOVANDANAIZA N Ot Z79.4 LEARNING SUPPORT SPECIALIST (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 OF INSULIN 05/07/2018 POLOCLIFF N Ot Z79.82 LEARNING SUPPORT SPECIALIST (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 OF ASPIRIN 05/07/2018 POLO CLIFF N Ot Z79.899 OTHER LEARNING SUPPORT SPECIALIST (CURRENT) DRUG THERAPY 05/07/2018 CLIFF CUELLAR N Ot Z96.6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, BILAT 05/15/2018 NYA ALANIZ, TR Puri Ot Z13.0 ENCNTR SCREEN FOR DIS OF THE BLD/BLD-FOR 05/15/2018 POLOVANDANAIZA Pranay Ot D72.820 LYMPHOCYTOSIS (SYMPTOMATIC) 05/15/2018 CLIFF CEULLAR Ot R59.1 GENERALIZED ENLARGED LYMPH NODES 05/15/2018 [...] ANTINEOPLASTIC CHEMOTHERAP 05/15/2018 CLIFF CUELLAR Ot Z79.4 USP (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 OF INSULIN 05/15/2018 CLIFF CUELLAR Ot Z79.82 LEARNING SUPPORT SPECIALIST (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 OF ASPIRIN 05/15/2018 CLIFF CUELLAR Ot Z79.899 OTHER USP (CURRENT) DRUG THERAPY 05/15/2018 CLIFF CUELLAR Ot Z96.6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, BILAT 05/15/2018 ANDRES ROTHMAN DOIC B Ot Z01.818 ENCOUNTER FOR OTHER PREPROCEDURAL EXAMIN 05/16/2018 ANDRES ROTHMAN DOIC B Ot C91.10 CHRONIC LYMPHOCYTIC LEUK OF B-CELL TYPE 05/16/2018 LORNA DO SUSY B Ot E11.9 TYPE 2 DIABETES MELLITUS WITHOUT COMPLIC 05/16/2018 ANDRES ROTHMAN DOIC B Ot I10 ESSENTIAL (PRIMARY) HYPERTENSION 05/16/2018 ANDRES ROTHMAN DOIC B Ot I87.2 VENOUS INSUFFICIENCY (CHRONIC) (PERIPHER 05/16/2018 LORNA HOLLY SUSY B Ot Z11.2 ENCOUNTER FOR SCREENING FOR OTHER BACTER 05/16/2018 ANDRES ROTHMAN DOIC B Ot Z79.4 LEARNING SUPPORT SPECIALIST (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 OF INSULIN 05/16/2018 ANDRES ROTHMAN DOIC B Ot Z79.899 OTHER LEARNING SUPPORT SPECIALIST (CURRENT) DRUG THERAPY 05/16/2018 ANDRES ROTHMAN DOIC B Ot Z96.6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, BILAT 05/16/2018 LORNA HOLLY SUSY B Ot Z01.818 ENCOUNTER FOR OTHER PREPROCEDURAL EXAMIN 05/17/2018 CLIFF CUELLAR Ot C91.10 CHRONIC LYMPHOCYTIC LEUK OF B-CELL TYPE 05/17/2018 CLIFF CUELLAR Ot D64.9 ANEMIA, UNSPECIFIED 05/17/2018 CLIFF CUELLAR Ot E11.9 TYPE 2 DIABETES MELLITUS WITHOUT COMPLIC 05/17/2018 CLIFF CUELLAR Ot I10 ESSENTIAL (PRIMARY) HYPERTENSION 05/17/2018 CLIFF CUELLAR Ot Z51.11 ENCOUNTER FOR ANTINEOPLASTIC CHEMOTHERAP 05/17/2018 CLIFF CUELLAR Ot Z79.4 USP (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 OF INSULIN 05/17/2018 CLIFF CUELLAR Pranay Ot Z79.82 USP (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 OF ASPIRIN 05/17/2018 CLIFF CUELLAR N Ot Z79.899 OTHER USP (CURRENT) DRUG THERAPY 05/17/2018 CLIFF CUELLAR Pranay Ot Z96.6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, BILAT 05/17/2018 POLO CLIFF Pires Ot C91.10 CHRONIC LYMPHOCYTIC LEUK OF B-CELL TYPE 05/17/2018 POLO VANDANAIZA Pranay Ot D64.9 ANEMIA, UNSPECIFIED 05/17/2018 POLO CLIFF N Ot E11.9 TYPE 2 DIABETES MELLITUS WITHOUT COMPLIC 05/17/2018 POLO CLIFF Pires Ot I10 ESSENTIAL (PRIMARY) HYPERTENSION 05/17/2018 POLOCLIFF Ot Z51.11 ENCOUNTER FOR ANTINEOPLASTIC CHEMOTHERAP 05/17/2018 POLOCLIFF Ot Z79.4 USP (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 OF INSULIN 05/17/2018 POLOCLIFF Ot Z79.82 USP (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 OF ASPIRIN 05/17/2018 CLIFF CUELLAR Pranay Ot Z79.899 OTHER LEARNING SUPPORT SPECIALIST (CURRENT) DRUG THERAPY 05/17/2018 CLIFF CUELLAR Pranay Ot Z96.6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, BILAT 05/19/2018 LORNA HOLLY SUSY B Ot C91.10 CHRONIC LYMPHOCYTIC LEUK OF B-CELL TYPE 05/19/2018 DELDRAGAN DO, SUSY B Ot E11.9 TYPE 2 DIABETES MELLITUS WITHOUT COMPLIC 05/19/2018 DELDRAGAN DO, SUSY B Ot I10 ESSENTIAL (PRIMARY) HYPERTENSION 05/19/2018 DELDRAGAN DO, SUSY B Ot I87.2 VENOUS INSUFFICIENCY (CHRONIC) (PERIPHER 05/19/2018 LORNA DO SUSY B Ot Z11.2 ENCOUNTER FOR SCREENING FOR OTHER BACTER 05/19/2018 LORNA DO SUSY B Ot Z79.4 USP (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 OF INSULIN 05/19/2018 LORNA DO, SUSY B Ot Z79.899 OTHER USP (CURRENT) DRUG THERAPY 05/19/2018 DELMAN DO SUSY B Ot Z96.6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, BILAT Procedures Code Description [place] [address] A1C (IN-HOUSE) 05/15/2012 28554 ROUTINE VENIPUNCTURE 05/25/2012 42612 CBC 05/25/2012 20214 CMP 05/25/2012 74157 LIPID PANEL 05/25/2012 3348999 GFR CALC (RESULT ONLY) 05/25/2012 76835 GASTRIN 05/28/2012 22470 A1C (IN-HOUSE) 09/04/2012 86120 A1C (IN-HOUSE) 12/12/2012 31620 MICRO ALBUMIN-IN HOUSE 12/12/2012 99431 MICROALBUMIN 12/12/2012 60954 A1C (IN-HOUSE) 04/01/2013 68191 A1C (IN-HOUSE) 07/15/2013 53632 A1C (IN-HOUSE) 11/15/2013 11233 ROUTINE VENIPUNCTURE 11/20/2013 15687 CBC 11/20/2013 [id number] GFR CALC (RESULT ONLY) 11/20/2013 92120 CMP 11/20/2013 41336 LIPID PANEL 11/20/2013 73690 MICRO ALBUMIN-IN HOUSE 02/17/2014 51007 A1C (IN-HOUSE) 02/17/2014 49640 MICROALBUMIN 02/17/2014 [id number] 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, RICHARD 07/19/2017 [id number] REPLACE OF R KNEE JT WITH SYNTH [...] HDL Cholesterol 31 mg/dL >39 VLDL Cholesterol Breeyz 29 mg/dL 5-40 LDL Cholesterol Calc 77 mg/dL 0-99 TSH - 07/15/16 08:42 TSH 1.430 uIU/mL 0.450-4.500 Methicillin resistant Staphylococcus aureus (MRSA) screening culture - 10:35 Methicillin resistant Staphylococcus aureus (MRSA) screening culture NEG NR Complete blood count (CBC) with automated white [...] ABO+Rh group OP NRG Transfusion band number [id number] NRG Blood group antibody screen NEGATIVE NRG [...] ABO+Rh group OP NRG Transfusion band number [id number] NRG Blood group antibody screen NEGATIVE [facility] Blood lymphocytes count by flow cytometry (number/volume) - 09/19/17 13:50 Pathology consultation and report [id number] [facility] Capillary blood glucose measurement by glucometer (mass/volume) [...] Status Pt. Type Provider Facility Loc./Unit Complaint [id number] 04/25/2014 09:09:00 04/25/2014 23:59:59 CLS Outpatient ADAM DRAPER DO [id number] 03/21/2014 10:20:00 03/21/2014 23:59:59 CLS Outpatient SHADIA BLAIR APRN [id number] 02/17/2014 10:13:00 02/17/2014 23:59:59 CLS Outpatient SHADIA BLAIR APRN [id number] 12/16/2013 09:09:00 12/16/2013 23:59:59 CLS Outpatient SHADIA BLAIR APRN [id number] 11/20/2013 08:07:00 11/20/2013 23:59:59 CLS Outpatient SHADIA BLAIR APRN [id number] 11/15/2013 12:13:00 11/15/2013 23:59:59 CLS Outpatient SHADIA BLAIR APRN [id number] 07/15/2013 09:15:00 07/15/2013 23:59:59 CLS Outpatient ADAM DRAPER DO Izabella [id number] 05/03/2013 08:48:00 05/03/2013 23:59:59 CLS Outpatient ZOE REED MD [id number] 04/01/2013 10:04:00 04/01/2013 23:59:59 CLS Outpatient SHADIA BLAIR APRN [id number] 01/25/2013 08:54:00 01/25/2013 23:59:59 CLS Outpatient DRAPER DO ADAM Parekh [id number] 12/26/2012 10:43:00 12/26/2012 23:59:59 CLS Outpatient SHADIA BLAIR APRN [id number] 12/12/2012 14:22:00 12/12/2012 23:59:59 CLS Outpatient SHADIA BLAIR APRN [id number] 09/04/2012 14:22:00 09/04/2012 23:59:59 CLS Outpatient ADAM DRAPER DO Izabella [id number] 05/30/2012 16:04:00 05/30/2012 23:59:59 CLS Outpatient [id number] 05/25/2012 08:09:00 05/25/2012 23:59:59 CLS Outpatient SAHDIA BLAIR APRN [id number] 05/15/2012 14:05:00 05/15/2012 23:59:59 CLS Outpatient [id number] 02/08/2012 10:02:00 02/08/2012 23:59:59 CLS Outpatient [id number] 01/11/2012 11:51:00 01/11/2012 23:59:59 CLS Outpatient SHADIA BLAIR APRN [id number] 06/27/2012 10:09:00 Document Registration [id number] 05/16/2018 07:16:00 05/16/2018 10:57:00 DIS Outpatient SUSY ROTHMAN DO [facility] LEUKEMIA [id number] 05/15/2018 05:44:00 05/15/2018 11:07:00 DIS Outpatient SUSY ROTHMAN DO [facility] PREOP LEUKEMIA [id number] 05/09/2018 12:44:00 05/09/2018 23:59:59 CLS Outpatient CLIFF CUELLAR [facility] ONC [id number] 04/25/2018 10:12:00 05/06/2018 00:01:00 DIS Outpatient CLIFF CUELLAR [facility] ONC [id number] 04/29/2018 14:04:00 04/29/2018 15:21:00 DIS Emergency LESLI TATUM [facility] ER POST OP/INCISION OPENED UP [id number] 04/18/2018 07:59:00 04/18/2018 12:25:00 DIS Outpatient SUSY ROTHMAN DO B [facility] SDC GENERALIZED ENLARGED LYMPH NODES, CLL [id number] 04/13/2018 05:33:00 04/13/2018 14:59:00 DIS Outpatient SUSY ROTHMAN DO B [facility] PREOP GENERALIZED ENLARGED LYMPH NODES, CLL [id number] 04/04/2018 09:55:00 04/04/2018 23:59:59 CLS Outpatient LISA PICKARD [facility] RAD IMAGING STUDY TO RESTAGE NEOPLASM [id number] 01/29/2018 08:55:00 01/31/2018 00:01:00 DIS Outpatient CLIFF CUELLAR [facility] ONC [id number] 01/02/2018 12:42:00 01/02/2018 23:59:59 CLS Outpatient JARRETT CALLE MD [facility] RAD 715.16 M17.0 [id number] 11/10/2017 11:23:00 11/10/2017 12:49:00 DIS Outpatient JARRETT CALLE MD [facility] REHAB L TKA [id number] 11/07/2017 14:25:00 11/07/2017 23:59:59 CLS Outpatient CLIFF CUELLAR [facility] RAD LYMPHOCYTOSIS, LYMPHADENOPATHY [id number] 09/20/2017 05:51:00 09/23/2017 11:10:00 DIS Inpatient JARRETT CALLE MD [facility] 4TH OSTEOARTHRITIS RIGHT KNEE [id number] 09/19/2017 13:29:00 09/19/2017 23:59:59 CLS Outpatient NYA ALANIZ, TR Puri [facility] LAB CLL [id number] 09/19/2017 08:00:00 09/19/2017 09:53:00 DIS Outpatient JARRETT CALLE MD [facility] REHAB L TKA; BILATERAL PRIMARY OA OF KNEE [id number] 09/12/2017 13:20:00 09/12/2017 13:55:00 DIS Outpatient JARRETT CALLE MD [facility] PREOP OSTEOARTHRITIS RIGHT KNEE [id number] 07/19/2017 06:00:00 07/22/2017 12:00:00 DIS Inpatient JARRETT CALLE MD [facility] 4TH LEFT KNEE OSTEOARTHRITIS [id number] 07/12/2017 10:04:00 07/12/2017 11:10:00 DIS Outpatient JARRETT CALLE MD [facility] PREOP LEFT TOTAL KNEE REPLACEMENT [id number] 07/16/2016 11:06:00 Document Registration [id number] 05/17/2018 11:40:00 05/17/2018 23:59:59 CLS Outpatient SHADIA BLAIR APRN [facility]
[2018-05-22] MEDS ORDERED: FLU QUADRIvalent (5+ YOA) 2018-2019 (AFLURIA) 0.5 ML IM ONE (19:15)
[2018-05-22 20:42] VITALS: BP 162/77
[2018-05-22] MEDS: PIPERACILLIN/TAZO 4.5 GM/NS 100 ML IV SCH ×2 (23:06)
[2018-05-22] MEDS: inSUlin ASPART (NovoLOG) 1 UNIT/0.01 ML (CHARGE PER UNIT) SC SCH (23:08)
[2018-05-23] VITALS: BP 142/65
[2018-05-23] MEDS: methylPREDNISolone 125 MG (Solu-MEDROL) VIAL IV SCH ×3 (02:48→17:41)
[2018-05-23 04:16] VITALS: BP 135/72
[2018-05-23] MEDS: inSUlin ASPART (NovoLOG) 1 UNIT/0.01 ML (CHARGE PER UNIT) SC SCH ×4 (05:26→20:39)
[2018-05-23] MEDS: NS IV 1000 ML 1,000 ML IV SCH (06:35)
[2018-05-23 07:21] LABS: BASOPHILS % (AUTO) 0 % (0-10); EOSINOPHILS % (AUTO) 0 % (0-10); HEMATOCRIT 32 % (40-54); HEMOGLOBIN 10.9 G/DL (13.3-17.7); LYMPHOCYTES # (AUTO) 1.2 X 10^3 (1.0-4.0); LYMPHOCYTES % (AUTO) 64 % (12-44); MEAN CORPUSCULAR HEMOGLOBIN 30 PG (25-34); MEAN CORPUSCULAR HGB CONC 35 G/DL (32-36); MEAN CORPUSCULAR VOLUME 86 FL (80-99); MEAN PLATELET VOLUME 10.1 FL (7.4-10.4); MONOCYTES # (AUTO) 0.1 X 10^3 (0.0-1.0); MONOCYTES % (AUTO) 7 % (0-12); NEUTROPHILS # (AUTO) 0.5 X 10^3 (1.8-7.8); NEUTROPHILS % (AUTO) 29 % (42-75); PLATELET COUNT 136 10^3/uL (130-400); WHITE BLOOD COUNT 1.9 10^3/uL (4.3-11.0)
[2018-05-23 07:41] LABS: ALANINE AMINOTRANSFERASE 20 U/L (0-55); ALBUMIN 3.6 GM/DL (3.2-4.5); ALKALINE PHOSPHATASE 72 U/L (40-136); BILIRUBIN,TOTAL 0.4 MG/DL (0.1-1.0); BUN/CREATININE RATIO 22; CALCIUM 8.3 MG/DL (8.5-10.1); CARBON DIOXIDE 19 MMOL/L (21-32); CHLORIDE 99 MMOL/L (98-107); CREATININE SERUM 0.94 MG/DL (0.60-1.30); GFR ESTIMATED > 60; GLUCOSE 287 MG/DL (70-105); POTASSIUM 4.7 MMOL/L (3.6-5.0); SODIUM 128 MMOL/L (135-145)
[2018-05-23 08:00] VITALS: BP 163/73
--- NOTE | 2018-05-23 09:00 | NUR ---
IVF DECREASED TO 75 CC/HR PER ORDER.
[2018-05-23] MEDS: PIPERACILLIN/TAZO 4.5 GM/NS 100 ML IV SCH ×6 (09:01→23:19)
[2018-05-23] MEDS ORDERED: INSU100I14 SQ (09:22)
[2018-05-23] MEDS ORDERED: ONDA8TAB12 PO (09:22)
[2018-05-23] MEDS ORDERED: ALLO300T2 PO (09:22)
[2018-05-23] MEDS ORDERED: CIPR500T4 PO (09:22)
[2018-05-23] MEDS ORDERED: ACYC800T PO (09:22)
[2018-05-23] MEDS ORDERED: OSEL75CA15 PO (09:22)
[2018-05-23] MEDS ORDERED: LEVO500T80 PO (09:22)
[2018-05-23] MEDS ORDERED: D-ME118S41 PO (09:30)
--- NOTE | 2018-05-23 09:32 | NUR ---
SPOKE WITH THE PATIENT ABOUT HIS MEDICATIONS. HE HAD A LIST AND I COMPARED IT WITH THE EXT MED HX. HE TAKES ASPIRIN 81MG DAILY AND FISH OIL OTC DAILY.
[2018-05-23 12:00] VITALS: BP 192/76
--- NOTE | 2018-05-23 13:30 | NUR ---
IVF DC'D PER ORDER.
[2018-05-23 15:28] VITALS: BP 149/69
[2018-05-23] MEDS ORDERED: inSUlin ASPART (NovoLOG) 1 UNIT/0.01 ML (CHARGE PER UNIT) SC NR (15:30)
[2018-05-23] MEDS ORDERED: inSUlin DETERMIR 1 UNIT/0.01 ML (LEVEMIR) CHARGE PER UNIT SQ NR (15:30)
--- NOTE | 2018-05-23 15:36 | NUR ---
DR. TRAYLOR CALLED RE BLOOD GLUCOSE 404. ORDERS REC'D.
--- NOTE | 2018-05-23 16:49 | History & Physicial (CHS) ---
HPI History of Present Illness: 68 yo M with CLL that presented to ER after not improving after outpatient treatment for PNA. He states that on Monday he was diagnosed with flu A but he had already had symptoms for 3-4 days so he was not started on antiviral. He was given an inhaler. He continued to worsened and then went to [facility] urgent care and was diagnosed with PNA and came in and received 3 days of rocephin w/o any major improvement in symptoms. States that he was coughing so much that his sides were hurting. He follows with Dr Samuel for his cancer treatment and has an appt coming up on Monday to re evaluate to start a new chemo. Source: patient, family Exam Limitations: no limitations Date seen by provider: May 23, 2018 Time Seen by Provider: 08:20 Attending Physician Naif Sesay MD PCP [place] Consult Date of Admission May 22, 2018 at 16:35 Home Medications Home Medications Reviewed patient Home Medication Reconciliation performed by pharmacy medication reconciliations biological science technician and/or nursing. Patients Allergies have been reviewed. Allergies Coded Allergies: No Known Drug Allergies (Unverified , 04/18/18) MRS-Hlynef-Dpnrdm Hx Patient Social History Alcohol Use: Denies Use Recreational Drug Use: No Smoking Status: Never a Smoker 2nd Hand Smoke Exposure: No Recent Foreign Travel: No Contact w/other who traveled: No Recent Hopitalizations: No Recent Infectious Disease Expo: No Physical Abuse Screen: No Sexual Abuse: No Immunizations Up To Date Tetanus Booster (TDap): Unknown Past Medical History Type II Diabetes, Insulin Dependent HTN Hyperlipidemia CLL Family Medical History Family History: Dementia 19 MOTHER Diabetes mellitus G8 BROTHER G8 SISTER Hypertension G8 BROTHER Respiratory disorder 19 FATHER (lung cancer) Review of Systems (CHC) Constitutional: No chills; fever, malaise, weakness EENTM: nose congestion, throat pain Respiratory: cough, dyspnea on exertion, short of breath Cardiovascular: no symptoms reported; No chest pain, No edema, No palpitations Gastrointestinal: No abdominal pain, No constipation, No diarrhea; loss of appetite; No nausea, No vomiting Genitourinary: no symptoms reported; No dysuria, No frequency, No hematuria Musculoskeletal: no symptoms reported Skin: no symptoms reported Psychiatric/Neurological: No Symptoms Reported, See HPI Reviewed Test Results Reviewed Test Results Lab Laboratory Tests Test 05/22/18 21:04 05/23/18 05:16 05/23/18 07:00 05/23/18 11:07 Range/Units Glucometer 150 H 313 H 364 H 70-110 MG/DL White Blood Count 1.9 L 4.3-11.0 10^3/uL Red Blood Count 3.69 L 4.35-5.85 10^6/uL Hemoglobin 10.9 L 13.3-17.7 G/DL Hematocrit 32 L 40-54 % Mean Corpuscular Volume 86 80-99 FL Mean Corpuscular Hemoglobin 30 25-34 PG Mean Corpuscular Hemoglobin Concent 35 32-36 G/DL Red Cell Distribution Width 14.0 10.0-14.5 % Platelet Count 136 130-400 10^3/uL Mean Platelet Volume 10.1 7.4-10.4 FL Neutrophils (%) (Auto) 29 L 42-75 % Lymphocytes (%) (Auto) 64 H 12-44 % Monocytes (%) (Auto) 7 0-12 % Eosinophils (%) (Auto) 0 0-10 % Basophils (%) (Auto) 0 0-10 % Neutrophils # (Auto) 0.5 L 1.8-7.8 X 10^3 Lymphocytes # (Auto) 1.2 1.0-4.0 X 10^3 Monocytes # (Auto) 0.1 0.0-1.0 X 10^3 Eosinophils # (Auto) 0.0 0.0-0.3 10^3/uL Basophils # (Auto) 0.0 0.0-0.1 10^3/uL Sodium Level 128 L 135-145 MMOL/L Potassium Level 4.7 3.6-5.0 MMOL/L Chloride Level 99 98-107 MMOL/L Carbon Dioxide Level 19 L 21-32 MMOL/L Anion Gap 10 5-14 MMOL/L Blood Urea Nitrogen 21 H 7-18 MG/DL Creatinine 0.94 0.60-1.30 MG/DL Estimat Glomerular Filtration Rate > 60 BUN/Creatinine Ratio 22 Glucose Level 287 H 70-105 MG/DL Calcium Level 8.3 L 8.5-10.1 MG/DL Corrected Calcium 8.6 8.5-10.1 MG/DL Total Bilirubin 0.4 0.1-1.0 MG/DL Aspartate Amino Transf (AST/SGOT) 29 5-34 U/L Alanine Aminotransferase (ALT/SGPT) 20 0-55 U/L Alkaline Phosphatase 72 40-136 U/L Total Protein 6.0 L 6.4-8.2 GM/DL Albumin 3.6 3.2-4.5 GM/DL Test 05/23/18 15:23 05/23/18 19:17 05/23/18 20:23 Range/Units Glucometer 404 *H 350 H 417 *H 70-110 MG/DL Physical Exam-([facility]) Physical Exam Vital Signs VS - Last 72 Hours, by Label 05/22/18 05/22/18 05/22/18 05/22/18 15:25 16:28 17:25 17:37 Temp 98.0 Pulse 80 88 88 Resp 18 18 18 B/P (MAP) 152/60 (90) 152/60 (90) 152/60 Pulse Ox 95 97 94 94 O2 Delivery Room Air Room Air 05/22/18 05/22/18 05/22/18 05/22/18 18:08 18:36 19:00 20:00 Pulse 86 85 Pulse Ox 94 O2 Delivery Room Air Room Air 05/22/18 05/23/18 05/23/18 05/23/18 20:42 00:00 01:00 04:16 Temp 98.3 98.9 97.3 Pulse 83 88 82 83 Resp 24 20 22 B/P (MAP) 162/77 (105) 142/65 (90) 135/72 (93) Pulse Ox 95 94 99 O2 Delivery Room Air Room Air 05/23/18 05/23/18 05/23/18 05/23/18 07:00 08:00 08:00 12:00 Temp 97.8 97.7 Pulse 87 85 97 Resp 20 20 B/P (MAP) 163/73 (103) 192/76 (114) Pulse Ox 96 96 O2 Delivery Room Air Room Air Room Air 05/23/18 05/23/18 05/23/18 13:00 15:28 19:54 Temp 98.1 97.8 Pulse 109 92 94 Resp 20 22 B/P (MAP) 149/69 (95) 156/67 (96) Pulse Ox 94 93 O2 Delivery Room Air Room Air Capillary Refill : Less Than 3 Seconds General Appearance: WD/WN, no apparent distress HEENT: PERRL/EOMI Neck: non-tender, full range of motion, supple Respiratory: chest non-tender, no respiratory distress, no accessory muscle use , decreased breath sounds Cardiovascular: normal peripheral pulses, regular rate, rhythm, no edema, no murmur Gastrointestinal: normal bowel sounds, non tender, soft, no organomegaly Back: no CVA tenderness, no vertebral tenderness Extremities: normal range of motion, no calf tenderness, normal capillary refill, pedal edema (1+) 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, no motor/sensory deficits, alert, normal mood/affect, oriented x 3 Skin: normal color, warm/dry Lymphatic: no adenopathy Assessment/Plan Assessment/Plan Admission Status: Observation (1) Bilateral pneumonia Status: Acute Assessment & Plan: 05/23: Continue with IV antibiotics to cover for CAP, MAT protocol, Encourage ambulation Qualifiers: Qualified Codes: J18.1 - Lobar pneumonia, unspecified organism (2) Influenza Status: Acute (3) CLL (chronic lymphocytic leukemia) Assessment & Plan: 05/23: Follows with Dr Samuel and has rescheduled appt to Monday (4) Insulin dependent diabetes mellitus Status: Chronic Assessment & Plan: 05/23: A1c pending, appetite improving will increase insulin but patient will still not be at full home dose Clinical Quality Measures DVT/VTE Risk/Contraindication: Risk Factor Score Per Nursin RFS Level Per Nursing on Admit: 4+=Very High NAIF SESAY MD May 23, 2018 16:49
[2018-05-23 19:54] VITALS: BP 156/67
[2018-05-23] MEDS: HYDROCHLOROTHIAZIDE 12.5 MG (HCTZ) CAP PO SCH (20:05)
[2018-05-23] MEDS: ACYCLOVIR 400 MG TABLET (ZOVIRAX) PO SCH (20:05)
[2018-05-23] MEDS: lisINopril 20 MG (PRINIVIL) TABLET PO SCH (20:05)
[2018-05-23] MEDS: meTOprolol TARTRATE 50 MG (LOPRESSOR) TAB PO SCH (20:05)
--- NOTE | 2018-05-23 20:29 | NUR ---
PT BLOOD SUGAR IS 417, DR. TRAYLOR CALLED SHE ORDERED 20 LEVIMIR AND 10 NOVOLOG. SHE WILL PUT IN ORDERS FOR THIS AND WILL RESTART PT HOME INSULIN FOR TOMORROW.
[2018-05-23] MEDS: inSUlin DETERMIR 1 UNIT/0.01 ML (LEVEMIR) CHARGE PER UNIT SQ SCH (20:39)
[2018-05-23] MEDS ORDERED: NON-FORMULARY MEDICATION 1 EA EA (Acyclovir 800 MG) PO SCH (21:00)
[2018-05-24] VITALS: BP 143/67
[2018-05-24] MEDS: methylPREDNISolone 125 MG (Solu-MEDROL) VIAL IV SCH ×2 (01:48→10:37)
[2018-05-24 04:31] VITALS: BP 149/69
[2018-05-24 04:47] LABS: BASOPHILS % (AUTO) 0 % (0-10); EOSINOPHILS % (AUTO) 0 % (0-10); HEMATOCRIT 33 % (40-54); HEMOGLOBIN 10.9 G/DL (13.3-17.7); LYMPHOCYTES # (AUTO) 1.8 X 10^3 (1.0-4.0); LYMPHOCYTES % (AUTO) 52 % (12-44); MEAN CORPUSCULAR HEMOGLOBIN 29 PG (25-34); MEAN CORPUSCULAR HGB CONC 33 G/DL (32-36); MEAN CORPUSCULAR VOLUME 86 FL (80-99); MEAN PLATELET VOLUME 10.6 FL (7.4-10.4); MONOCYTES # (AUTO) 0.1 X 10^3 (0.0-1.0); MONOCYTES % (AUTO) 4 % (0-12); NEUTROPHILS # (AUTO) 1.5 X 10^3 (1.8-7.8); NEUTROPHILS % (AUTO) 44 % (42-75); PLATELET COUNT 157 10^3/uL (130-400); RED CELL DISTRIBUTION WIDTH 13.8 % (10.0-14.5); WHITE BLOOD COUNT 3.5 10^3/uL (4.3-11.0)
[2018-05-24 05:01] LABS: BUN/CREATININE RATIO 29; CALCIUM 8.4 MG/DL (8.5-10.1); CARBON DIOXIDE 17 MMOL/L (21-32); CHLORIDE 102 MMOL/L (98-107); CREATININE SERUM 0.98 MG/DL (0.60-1.30); GFR ESTIMATED > 60; GLUCOSE 348 MG/DL (70-105); POTASSIUM 4.5 MMOL/L (3.6-5.0); SODIUM 131 MMOL/L (135-145)
[2018-05-24] MEDS: inSUlin ASPART (NovoLOG) 1 UNIT/0.01 ML (CHARGE PER UNIT) SC SCH ×2 (06:12→12:16)
[2018-05-24 08:00] VITALS: BP 154/72
[2018-05-24] MEDS: PIPERACILLIN/TAZO 4.5 GM/NS 100 ML IV SCH ×2 (08:29)
--- NOTE | 2018-05-24 08:39 | Diagnostic Imaging Report ---
INDICATION: Shortness of breath. TIME OF EXAM: 8:24 AM Correlation is made with prior chest radiograph from 05/22/2018. FINDINGS: Right-sided line has tip overlying the SVC. Heart size is stable. Bilateral infiltrates appear to be improved when compared with 2 days earlier. There may be some minimal right perihilar infiltrate present. There is no effusion. No pneumothorax is seen. IMPRESSION: Improving bilateral infiltrates when compared with prior examination from 2 days earlier. Dictated by: Dictated on workstation # [id number]
[2018-05-24] MEDS ORDERED: NON-FORMULARY MEDICATION 1 EA EA (Amlodipine Besylate 5 MG) PO SCH (09:00)
[2018-05-24] MEDS ORDERED: NON-FORMULARY MEDICATION 1 EA EA (Aspirin (Aspir 81) 81 MG) PO SCH (09:00)
[2018-05-24] MEDS ORDERED: amLODIPine 5 MG (NORVASC) TAB PO SCH (09:00)
[2018-05-24] MEDS ORDERED: ASPIRIN E.C. 81 MG (ECOTRIN) TAB PO SCH (09:00)
[2018-05-24] MEDS ORDERED: ATORVASTATIN 10 MG (LIPITOR) TABLET PO SCH (09:00)
[2018-05-24] MEDS ORDERED: NON-FORMULARY MEDICATION 1 EA EA (Lovastatin 20 MG) PO SCH (09:00)
[2018-05-24] MEDS: HYDROCHLOROTHIAZIDE 12.5 MG (HCTZ) CAP PO SCH (09:22)
[2018-05-24] MEDS: lisINopril 20 MG (PRINIVIL) TABLET PO SCH (09:24)
[2018-05-24] MEDS: meTOprolol TARTRATE 50 MG (LOPRESSOR) TAB PO SCH (09:25)
[2018-05-24] MEDS: ACYCLOVIR 400 MG TABLET (ZOVIRAX) PO SCH (09:25)
[2018-05-24] MEDS: inSUlin DETERMIR 1 UNIT/0.01 ML (LEVEMIR) CHARGE PER UNIT SQ SCH (10:08)
[2018-05-24] MEDS ORDERED: AMOX-358 PO (10:39)
--- NOTE | 2018-05-24 10:39 | Progress Note (SOAP) ---
JESSE ACEVES MEDICAL STUDENT 05/24/18 1039: Subjective Subjective/Events-last exam Patient feels well this morning. Has been walking around his room with good energy, has been able to urinate and have bowel movements, and has stayed hydrated orally. Patient feels that he is ready to head home this morning. Believes that his breathing is back to baseline. Review of Systems Date Seen by Provider: May 24, 2018 Time Seen by Provider: 10:15 General: No Chills, No Night Sweats, No Fatigue, No Malaise, No Appetite, No Other HEENT: No Head Aches, No Visual Changes, No Dysphasia, No Sore Throat Pulmonary: No Dyspnea, No Cough, No Pleuritic Chest Pain Cardiovascular: No: Chest Pain, Palpitations, Orthopnea, Paroxysmal Noc. Dyspnea, Edema, Lt Headedness Gastrointestinal: No: Nausea, Vomiting, Abdominal Pain Genitourinary: No Dysuria, No Frequency Neurological: No: Weakness, Numbness Focused Exam Lactate Level 05/22/18 15:30: Lactic Acid Level 1.71 Objective Exam Last Set of Vital Signs Vital Signs Date Time Temp Pulse Resp B/P (MAP) Pulse Ox O2 Delivery O2 Flow Rate FiO2 05/24/18 08:00 98.2 87 20 154/72 (99) 92 Room Air Capillary Refill : Less Than 3 SecondsLess Than 3 Seconds I&O Intake and Output 05/24/18 00:00 Intake Total 4970 ml Balance 4970 ml Intake Oral 3110 ml IV Total 1860 ml # Voids 8 # Bowel Movements 2 Daily Weight Change No Unsure General: Alert, Oriented X3, No Acute Distress HEENT: Atraumatic, PERRLA, EOMI Lungs: Clear to Auscultation, Normal Air Movement Heart: Regular Rate, No Murmurs Abdomen: Normal Bowel Sounds Extremities: No Edema Neuro: Normal Gait, Cranial Nerves 3-12 NL Results/Procedures Lab Laboratory Tests 05/23/18 11:07: Glucometer 364H 05/23/18 15:23: Glucometer 404*H 05/23/18 19:17: Glucometer 350H 05/23/18 20:23: Glucometer 417*H 05/24/18 04:15: White Blood Count 3.5L, Red Blood Count 3.80L, Hemoglobin 10.9L, Hematocrit 33L , Mean Corpuscular Volume 86, Mean Corpuscular Hemoglobin 29, Mean Corpuscular Hemoglobin Concent 33, Red Cell Distribution Width 13.8, Platelet Count 157, Mean Platelet Volume 10.6H, Neutrophils (%) (Auto) 44, Lymphocytes (%) (Auto) 52H, Monocytes (%) (Auto) 4, Eosinophils (%) (Auto) 0, Basophils (%) (Auto) 0, Neutrophils # (Auto) 1.5L, Lymphocytes # (Auto) 1.8, Monocytes # (Auto) 0.1, Eosinophils # (Auto) 0.0, Basophils # (Auto) 0.0, Sodium Level 131L, Potassium Level 4.5, Chloride Level 102, Carbon Dioxide Level 17L, Anion Gap 12, Blood Urea Nitrogen 28H, Creatinine 0.98, Estimat Glomerular Filtration Rate > 60, BUN /Creatinine Ratio 29, Glucose Level 348H, Calcium Level 8.4L 05/24/18 06:07: Glucometer 325H Microbiology 05/22/18 Blood Culture - Preliminary, Resulted No growth Assessment/Plan Assessment/Plan (1) Bilateral pneumonia Status: Acute Assessment & Plan: 05/24: Patient to be discharged with Augmentin, MAT protocol , Encourage ambulation Qualifiers: Qualified Codes: J18.1 - Lobar pneumonia, unspecified organism (2) Influenza Status: Acute (3) CLL (chronic lymphocytic leukemia) Assessment & Plan: 05/24: Follows with Dr Samuel and has rescheduled appt to Monday (4) Insulin dependent diabetes mellitus Status: Chronic Assessment & Plan: 05/24: A1c pending, appetite improving, patient will adjust insulin to home dose as appetite normalizes Clinical Quality Measures DVT/VTE Risk/Contraindication: Risk Factor Score Per Nursin RFS Level Per Nursing on Admit: 4+=Very High NAIF TRAYLOR MD 05/24/18 2217: Assessment/Plan Assessment/Plan Assessment & Plan See Discharge Summary by JESSE Jackson MEDICAL STUDENT May 24, 2018 10:39 NAIF TRAYLOR MD May 24, 2018 22:17
--- NOTE | 2018-05-24 10:46 | Discharge Instructions ---
Discharge [facility] Discharge Medications New, Converted or Re-Newed RX: Transmitted to Pharmacy New Medications: Amoxicillin/Potassium Clav (Augmentin 875-125 Tablet) 1 Each Tablet 1 EACH PO BID for 3 Days, #6 TAB Continued Medications: Acyclovir (Acyclovir) 800 Mg Tablet 800 MG PO BID, TAB Allopurinol (Allopurinol) 300 Mg Tablet 300 MG PO DAILY, TAB Amlodipine Besylate (Amlodipine Besylate) 5 Mg Tablet 5 MG PO DAILY, TAB Aspirin (Aspir 81) 81 Mg Tablet.dr 81 MG PO DAILY, TAB Glimepiride (Glimepiride) 4 Mg Tablet 4 MG PO BID, TAB Insulin Aspart (Novolog Flexpen) 300 Units/3 Ml Solution 15 UNITS SQ BID WITH MEALS, EA Insulin Detemir (Levemir Flextouch) 100 Unit/1 Ml Insuln.pen 48 UNIT SQ BID, EA Krill/Om-3/Dha/Epa/Phospho/Ast (Megared Palmer-3 Krill Oil Sfgl) 1 Each Capsule 1 CAP PO DAILY, CAP Lisinopril/Hydrochlorothiazide (Lisinopril-Hctz 20-12.5 mg Tab) 1 Each Tablet 1 TAB PO BID, TAB Lovastatin (Lovastatin) 20 Mg Tablet 20 MG PO DAILY, TAB Metformin HCl (Metformin HCl) 1,000 Mg Tablet 1000 MG PO BID, TAB Metoprolol Tartrate (Metoprolol Tartrate) 50 Mg Tablet 50 MG PO BID, TAB Ondansetron HCl (Ondansetron HCl) 8 Mg Tablet 8 MG PO TID PRN for NAUSEA/VOMITING-1ST LINE, TAB Discontinued Medications: Ciprofloxacin HCl (Ciprofloxacin HCl) 500 Mg Tablet PO UD, TAB TAKE 1 (500MG) TABLET TWICE DAILY ON MONDAYS AND THURSDAYS D-Methorphan Hb/P-Epd HCl/Bpm (Ahzjiukpza-Xvnnzilysmr-Gj Syr) 118 Ml Syrup 10 ML PO Q4H PRN for COUGH, EA Oseltamivir Phosphate (Oseltamivir Phosphate) 75 Mg Capsule 75 MG PO BID for 5 Days, CAP 5 DAY SUPPLY FILLED 05-20-18 Patient Instructions Goal/Follow Up Appt: You have a hospital follow up appt with Valente Byrne on Mon @ 1140 Patient Instructions: - Discussed using levemir 30 twice a day untill seen by Valente, If you notice that your blood sugars are still elevated then call clinic and talk to his nurse Activity & Diet Discharge Diet: ADA Diet Orders-Post D/C & Referrals Pneu Vac Indicated: Yes Copy Copies To 1: NAIF Sullivan MD May 24, 2018 10:45
[2018-05-24 12:00] VITALS: BP 156/72
[2018-05-24] MEDS ORDERED: FLU QUADRIvalent (5+ YOA) 2018-2019 (AFLURIA) 0.5 ML IM ONE (12:03)
--- NOTE | 2018-05-24 12:12 | NUR ---
This RN called Dr. Sesay to notify of Blood Glucose level 405, telephone orders received for 9 units Novolog.
[2018-05-24 12:35] VITALS: BP 156/72
--- NOTE | 2018-05-24 22:12 | Discharge Summary ---
Diagnosis/Chief Complaint Date of Admission May 22, 2018 at 16:35 Date of Discharge May 24, 2018 at 12:21 Discharge Diagnosis Problems/Diagnosis: (1) Bilateral pneumonia Assessment & Plan: 05/24: Patient to be discharged with Augmentin, MAT protocol , Encourage ambulation Qualifiers: Qualified Codes: J18.1 - Lobar pneumonia, unspecified organism Status: Acute (2) Influenza Status: Acute (3) CLL (chronic lymphocytic leukemia) Assessment & Plan: 05/24: Follows with Dr Samuel and has rescheduled appt to Monday (4) Insulin dependent diabetes mellitus Assessment & Plan: 05/24: A1c pending, appetite improving, patient will adjust insulin to home dose as appetite normalizes Status: Chronic Chief Complaint/HPI Chief Complaint/HPI 68 yo M with CLL that presented to ER after not improving after outpatient treatment for PNA. He states that on Monday he was diagnosed with flu A but he had already had symptoms for 3-4 days so he was not started on antiviral. He was given an inhaler. He continued to worsened and then went to [facility] urgent care and was diagnosed with PNA and came in and received 3 days of rocephin w/o any major improvement in symptoms. States that he was coughing so much that his sides were hurting. He follows with Dr Samuel for his cancer treatment and has an appt coming up on Monday to re evaluate to start a new chemo. Discharge Summary-Simple/Stand Consultations Discharge Physical Examination Allergies: Coded Allergies: No Known Drug Allergies (Unverified , 04/18/18) Vitals & I&Os Vital Sign - Last 12Hours Date Time Temp Pulse Resp B/P (MAP) Pulse Ox O2 Delivery O2 Flow Rate FiO2 05/24/18 12:35 74 20 156/72 95 Room Air 05/24/18 12:00 97.4 Intake and Output 05/24/18 00:00 Intake Total 3550 ml Balance 3550 ml Hospital Course See final discharge diagnosis. Discharge Instructions to patient/family Please see electronic discharge instructions given to patient. Discharge Medications Reviewed and agree with Discharge Medication list on patient's Discharge Instruction sheet Clinical Quality Measures DVT/VTE Risk/Contraindication: Risk Factor Score Per Nursin RFS Level Per Nursing on Admit: 4+=Very High NAIF TRAYLOR MD May 24, 2018 22:12
== END 2018-05-24 12:21 | disposition home or self-care (01) | DRG 194 ==
LOC: EDUNIT# 15:19 → ER 15:23 → 4TH 16:35 → UNDOADMIN 16:35
PROVIDERS: ADMIT Family Medicine; ATTEND Family Medicine
DX: J10.08 Influenza due to other identified influenza virus with other specified pneumonia (principal); J18.1 Lobar pneumonia, unspecified organism; C91.10 Chronic lymphocytic leukemia of B-cell type not having achieved remission; I10 Essential (primary) hypertension; M19.91 Primary osteoarthritis, unspecified site; E11.9 Type 2 diabetes mellitus without complications; Z96.653 Presence of artificial knee joint, bilateral
CPT/HCPCS: 36415; 71045; 80048; 80053; 82962; 83036; 83605; 84484; 85025; 85610; 85730; 87040; 90471; 90686; 94640; 96374

== ENCOUNTER 2018-06-25 08:31 | Outpatient (RCR) | payer MEDICARE, OTHER ==
[2018-06-05 09:27] LABS: BASOPHILS % (AUTO) 1 % (0-10); EOSINOPHILS # (AUTO) 0.1 10^3/uL (0.0-0.3); EOSINOPHILS % (AUTO) 2 % (0-10); HEMATOCRIT 32 % (40-54); HEMOGLOBIN 10.5 G/DL (13.3-17.7); LYMPHOCYTES # (AUTO) 3.3 X 10^3 (1.0-4.0); LYMPHOCYTES % (AUTO) 45 % (12-44); MEAN CORPUSCULAR HEMOGLOBIN 29 PG (25-34); MEAN CORPUSCULAR HGB CONC 33 G/DL (32-36); MEAN CORPUSCULAR VOLUME 88 FL (80-99); MEAN PLATELET VOLUME 9.7 FL (7.4-10.4); MONOCYTES # (AUTO) 0.4 X 10^3 (0.0-1.0); MONOCYTES % (AUTO) 6 % (0-12); NEUTROPHILS # (AUTO) 3.4 X 10^3 (1.8-7.8); NEUTROPHILS % (AUTO) 47 % (42-75); PLATELET COUNT 245 10^3/uL (130-400); RED CELL DISTRIBUTION WIDTH 13.6 % (10.0-14.5); WHITE BLOOD COUNT 7.3 10^3/uL (4.3-11.0)
[2018-06-05 09:48] LABS: ALANINE AMINOTRANSFERASE 15 U/L (0-55); ALBUMIN 3.6 GM/DL (3.2-4.5); ALKALINE PHOSPHATASE 90 U/L (40-136); BILIRUBIN,TOTAL 0.4 MG/DL (0.1-1.0); BUN/CREATININE RATIO 20; CALCIUM 8.9 MG/DL (8.5-10.1); CARBON DIOXIDE 24 MMOL/L (21-32); CHLORIDE 104 MMOL/L (98-107); CREATININE SERUM 0.86 MG/DL (0.60-1.30); GFR ESTIMATED > 60; GLUCOSE 99 MG/DL (70-105); POTASSIUM 4.3 MMOL/L (3.6-5.0); SODIUM 138 MMOL/L (135-145); TOTAL PROTEIN 5.9 GM/DL (6.4-8.2); URIC ACID 3.9 MG/DL (2.6-7.2)
[2018-06-11 09:16] LABS: BASOPHILS % (AUTO) 0 % (0-10); EOSINOPHILS # (AUTO) 0.2 10^3/uL (0.0-0.3); EOSINOPHILS % (AUTO) 3 % (0-10); HEMATOCRIT 33 % (40-54); HEMOGLOBIN 11.1 G/DL (13.3-17.7); LYMPHOCYTES % (AUTO) 33 % (12-44); MEAN CORPUSCULAR HEMOGLOBIN 29 PG (25-34); MEAN CORPUSCULAR HGB CONC 34 G/DL (32-36); MEAN CORPUSCULAR VOLUME 87 FL (80-99); MEAN PLATELET VOLUME 9.5 FL (7.4-10.4); MONOCYTES # (AUTO) 0.1 X 10^3 (0.0-1.0); MONOCYTES % (AUTO) 2 % (0-12); NEUTROPHILS # (AUTO) 3.9 X 10^3 (1.8-7.8); NEUTROPHILS % (AUTO) 63 % (42-75); PLATELET COUNT 286 10^3/uL (130-400); RED CELL DISTRIBUTION WIDTH 14.1 % (10.0-14.5); WHITE BLOOD COUNT 6.2 10^3/uL (4.3-11.0)
[2018-06-11 09:39] LABS: BUN/CREATININE RATIO 23; CALCIUM 9.3 MG/DL (8.5-10.1); CARBON DIOXIDE 24 MMOL/L (21-32); CHLORIDE 103 MMOL/L (98-107); CREATININE SERUM 0.86 MG/DL (0.60-1.30); GFR ESTIMATED > 60; GLUCOSE 197 MG/DL (70-105); POTASSIUM 4.3 MMOL/L (3.6-5.0); SODIUM 136 MMOL/L (135-145); URIC ACID 3.1 MG/DL (2.6-7.2)
[2018-06-18 09:16] LABS: BASOPHILS % (AUTO) 0 % (0-10); EOSINOPHILS # (AUTO) 0.1 10^3/uL (0.0-0.3); EOSINOPHILS % (AUTO) 2 % (0-10); HEMATOCRIT 32 % (40-54); HEMOGLOBIN 10.7 G/DL (13.3-17.7); LYMPHOCYTES # (AUTO) 2.1 X 10^3 (1.0-4.0); LYMPHOCYTES % (AUTO) 35 % (12-44); MEAN CORPUSCULAR HEMOGLOBIN 30 PG (25-34); MEAN CORPUSCULAR HGB CONC 34 G/DL (32-36); MEAN CORPUSCULAR VOLUME 89 FL (80-99); MEAN PLATELET VOLUME 9.3 FL (7.4-10.4); MONOCYTES # (AUTO) 0.3 X 10^3 (0.0-1.0); MONOCYTES % (AUTO) 6 % (0-12); NEUTROPHILS # (AUTO) 3.4 X 10^3 (1.8-7.8); NEUTROPHILS % (AUTO) 57 % (42-75); PLATELET COUNT 243 10^3/uL (130-400); RED CELL DISTRIBUTION WIDTH 15.5 % (10.0-14.5)
[2018-06-18 09:36] LABS: BUN/CREATININE RATIO 22; CALCIUM 8.9 MG/DL (8.5-10.1); CARBON DIOXIDE 22 MMOL/L (21-32); CHLORIDE 104 MMOL/L (98-107); CREATININE SERUM 0.79 MG/DL (0.60-1.30); GFR ESTIMATED > 60; GLUCOSE 203 MG/DL (70-105); POTASSIUM 4.1 MMOL/L (3.6-5.0); SODIUM 136 MMOL/L (135-145)
[~2018-06-25] VITALS: Ht 180.3 cm; Wt 135.2 kg
[~2018-06-25 08:31] MED LIST changes: +ACETAMINOPHEN 500 MG TAB (TYLENOL) CANCER CTR PO PRN; +ACYC800T PO; +ALLO300T2 PO; +AMOX-358 PO; +CIPR500T4 PO; +CYCLOPHOSPHAMIDE IV SCH; +D-ME118S41 PO; +FAMOTIDINE 20MG/2ML IV (CANCER CTR) IV ONE; +FLUDARABINE PHOSPHATE IV SCH; +LEVO500T80 PO; +NS IV 1000 ML (CANCER CTR) IV SCH; +NS IV SCH; +ONDA8TAB12 PO; +ONDANSETRON MDV (CANCER CENTER 16 MG in NS (IVPB) CANCER CENTER 50 ML IV SCH; +ONDANSETRON MDV (CANCER CENTER 16 MG, DEXAMETHASONE INJECTION 10 MG in NS (IVPB) CANCER... IV SCH; +OSEL75CA15 PO; +PALONOSETRON HCL 0.25 MG, DEXAMETHASONE INJECTION 10 MG in NS (IVPB) CANCER CENTER 50 ML IV SCH; +[UNRECOGNIZED DRUG - OTHER] IV SCH; +[UNRECOGNIZED DRUG - OTHER] IV SCH; +diphenhydrAMINE 50 MG/ML INJ (CANCER CENTER) IV PRN; +methylPREDNISolone 125 MG/2 ML (SOLU-MEDROL) CANCER CTR IV SCH
[2018-06-25 08:45] LABS: BASOPHILS % (AUTO) 1 % (0-10); EOSINOPHILS # (AUTO) 0.2 10^3/uL (0.0-0.3); EOSINOPHILS % (AUTO) 3 % (0-10); HEMATOCRIT 32 % (40-54); HEMOGLOBIN 10.7 G/DL (13.3-17.7); LYMPHOCYTES # (AUTO) 2.5 X 10^3 (1.0-4.0); LYMPHOCYTES % (AUTO) 44 % (12-44); MEAN CORPUSCULAR HGB CONC 33 G/DL (32-36); MEAN CORPUSCULAR VOLUME 88 FL (80-99); MEAN PLATELET VOLUME 9.1 FL (7.4-10.4); MONOCYTES # (AUTO) 0.3 X 10^3 (0.0-1.0); MONOCYTES % (AUTO) 6 % (0-12); NEUTROPHILS # (AUTO) 2.7 X 10^3 (1.8-7.8); NEUTROPHILS % (AUTO) 47 % (42-75); PLATELET COUNT 260 10^3/uL (130-400); RED CELL DISTRIBUTION WIDTH 15.9 % (10.0-14.5); WHITE BLOOD COUNT 5.7 10^3/uL (4.3-11.0)
[2018-06-25 08:46] LABS: MEAN CORPUSCULAR HEMOGLOBIN 29 PG (25-34)
[2018-06-25 09:05] LABS: BUN/CREATININE RATIO 19; CALCIUM 9.1 MG/DL (8.5-10.1); CARBON DIOXIDE 23 MMOL/L (21-32); CHLORIDE 103 MMOL/L (98-107); GFR ESTIMATED > 60; GLUCOSE 155 MG/DL (70-105); POTASSIUM 4.1 MMOL/L (3.6-5.0); SODIUM 138 MMOL/L (135-145)
== END 2018-07-02 08:49 | disposition home or self-care (01) ==
LOC: ONC 08:31
PROVIDERS: ATTEND Internal Medicine Hematology & Oncology
DX: Z51.11 Encounter for antineoplastic chemotherapy (principal); C91.10 Chronic lymphocytic leukemia of B-cell type not having achieved remission; D64.9 Anemia, unspecified; E11.9 Type 2 diabetes mellitus without complications; I10 Essential (primary) hypertension; Z79.82 Long term (current) use of aspirin; Z79.4 Long term (current) use of insulin; Z79.899 Other long term (current) drug therapy; Z96.653 Presence of artificial knee joint, bilateral
CPT/HCPCS: 36415; 36591; 80048; 80053; 83615; 83735; 84550; 85025; 96375; 96376; 96413; 96415; 96417; 99213

== ENCOUNTER 2018-07-02 09:02 | Outpatient (RCR) | payer MEDICARE, OTHER ==
[~2018-07-02 09:02] MED LIST changes: -ACETAMINOPHEN 500 MG TAB (TYLENOL) CANCER CTR PO PRN; -CYCLOPHOSPHAMIDE IV SCH; -FAMOTIDINE 20MG/2ML IV (CANCER CTR) IV ONE; -FLUDARABINE PHOSPHATE IV SCH; -NS IV 1000 ML (CANCER CTR) IV SCH; -NS IV SCH; -ONDANSETRON MDV (CANCER CENTER 16 MG in NS (IVPB) CANCER CENTER 50 ML IV SCH; -ONDANSETRON MDV (CANCER CENTER 16 MG, DEXAMETHASONE INJECTION 10 MG in NS (IVPB) CANCER... IV SCH; -PALONOSETRON HCL 0.25 MG, DEXAMETHASONE INJECTION 10 MG in NS (IVPB) CANCER CENTER 50 ML IV SCH; -[UNRECOGNIZED DRUG - OTHER] IV SCH; -[UNRECOGNIZED DRUG - OTHER] IV SCH; -diphenhydrAMINE 50 MG/ML INJ (CANCER CENTER) IV PRN; -methylPREDNISolone 125 MG/2 ML (SOLU-MEDROL) CANCER CTR IV SCH
[2018-07-02] MEDS ORDERED: methylPREDNISolone 125 MG/2 ML (SOLU-MEDROL) CANCER CTR IV SCH (09:08)
[2018-07-02] MEDS ORDERED: CYCLOPHOSPHAMIDE IV SCH (09:08)
[2018-07-02] MEDS ORDERED: ONDANSETRON MDV (CANCER CENTER 16 MG, DEXAMETHASONE INJECTION 10 MG in NS (IVPB) CANCER... IV SCH (09:08)
[2018-07-02] MEDS ORDERED: diphenhydrAMINE 50 MG/ML INJ (CANCER CENTER) IV PRN (09:08)
[2018-07-02] MEDS ORDERED: [UNRECOGNIZED DRUG - OTHER] IV SCH (09:08)
[2018-07-02] MEDS ORDERED: NS IV SCH ×3 (09:08)
[2018-07-02] MEDS ORDERED: ONDANSETRON MDV (CANCER CENTER 16 MG in NS (IVPB) CANCER CENTER 50 ML IV SCH (09:08)
[2018-07-02] MEDS ORDERED: PALONOSETRON HCL 0.25 MG, DEXAMETHASONE INJECTION 10 MG in NS (IVPB) CANCER CENTER 50 ML IV SCH (09:08)
[2018-07-02] MEDS ORDERED: FLUDARABINE PHOSPHATE IV SCH (09:08)
[2018-07-02] MEDS ORDERED: NS IV 1000 ML (CANCER CTR) IV SCH (09:08)
[2018-07-02] MEDS ORDERED: ACETAMINOPHEN 500 MG TAB (TYLENOL) CANCER CTR PO PRN (09:08)
[2018-07-02] MEDS ORDERED: ALTEPLASE 2 MG (CATHFLO) CANCER CENTER IV ONE (09:30)
[2018-07-02 10:34] LABS: BASOPHILS % (AUTO) 0 % (0-10); EOSINOPHILS # (AUTO) 0.3 10^3/uL (0.0-0.3); EOSINOPHILS % (AUTO) 5 % (0-10); HEMATOCRIT 32 % (40-54); HEMOGLOBIN 10.4 G/DL (13.3-17.7); LYMPHOCYTES # (AUTO) 1.8 X 10^3 (1.0-4.0); LYMPHOCYTES % (AUTO) 35 % (12-44); MEAN CORPUSCULAR HEMOGLOBIN 30 PG (25-34); MEAN CORPUSCULAR HGB CONC 33 G/DL (32-36); MEAN CORPUSCULAR VOLUME 90 FL (80-99); MEAN PLATELET VOLUME 9.6 FL (7.4-10.4); MONOCYTES # (AUTO) 0.3 X 10^3 (0.0-1.0); MONOCYTES % (AUTO) 5 % (0-12); NEUTROPHILS # (AUTO) 2.8 X 10^3 (1.8-7.8); NEUTROPHILS % (AUTO) 54 % (42-75); PLATELET COUNT 192 10^3/uL (130-400); RED CELL DISTRIBUTION WIDTH 15.7 % (10.0-14.5); WHITE BLOOD COUNT 5.2 10^3/uL (4.3-11.0)
[2018-07-02 10:53] LABS: ALANINE AMINOTRANSFERASE 15 U/L (0-55); ALBUMIN 3.8 GM/DL (3.2-4.5); ALKALINE PHOSPHATASE 93 U/L (40-136); BILIRUBIN,TOTAL 0.6 MG/DL (0.1-1.0); BUN/CREATININE RATIO 15; CALCIUM 9.2 MG/DL (8.5-10.1); CARBON DIOXIDE 22 MMOL/L (21-32); CHLORIDE 104 MMOL/L (98-107); CREATININE SERUM 0.79 MG/DL (0.60-1.30); GFR ESTIMATED > 60; GLUCOSE 83 MG/DL (70-105); POTASSIUM 3.9 MMOL/L (3.6-5.0); SODIUM 136 MMOL/L (135-145); TOTAL PROTEIN 5.9 GM/DL (6.4-8.2)
== END 2018-07-03 08:50 | disposition home or self-care (01) ==
LOC: ONC 09:02
PROVIDERS: ATTEND Internal Medicine Hematology & Oncology
DX: Z51.11 Encounter for antineoplastic chemotherapy (principal); C91.10 Chronic lymphocytic leukemia of B-cell type not having achieved remission; D64.9 Anemia, unspecified; E11.9 Type 2 diabetes mellitus without complications; I10 Essential (primary) hypertension; Z79.82 Long term (current) use of aspirin; Z79.4 Long term (current) use of insulin; Z79.899 Other long term (current) drug therapy; Z96.653 Presence of artificial knee joint, bilateral
CPT/HCPCS: 36593; 80053; 83615; 85025; 96374; 96375; 96413; 96415; 96417

== ENCOUNTER → 2018-08-20 | Outpatient (CLI) | payer MEDICARE, OTHER ==
[~2018-08-20] MED LIST changes: +BARIUM SUSPENSION 2.1% (VANILLA SILQ) 450 ML PO ONE; +HOLD METFORMIN - RECEIVED CONTRAST 20 ML VIAL IV SCH; +IOHEXOL 350 MG/ML 100 ML (OMNIPAQUE 350) VIAL IV ONE; +NS 100 ML (IVPB) BAG IV ONE
--- NOTE | 2018-08-20 09:13 | Diagnostic Imaging Report ---
INDICATION: Chronic lymphocytic leukemia. Pre and postcontrast axial imaging of the abdomen and pelvis with postcontrast axial imaging of the neck and chest was performed. Correlation is made with prior CT from 04/04/2018. CT neck: FINDINGS: Imaging of the intracranial structures does show some probable encephalomalacia in the left posterior parietal lobe. Posterior nasopharynx and oropharynx are unremarkable. No thyroid masses are seen. Previously noted enlarged lymph node adjacent to the left lobe of the thyroid is fairly stable in size approximately 1.5 x 2.1 cm compared with 1.6 x 2.1 cm when measured by the same technique. Previously noted level II lymph node on the right is approximately 1.5 x 0.8 cm compared with 1.9 x 0.9 cm. Numerous posterior cervical lymph nodes have all decreased in size. Bilateral supraclavicular nodes appear to be decreased in size. There are multiple small submandibular lymph nodes which also appear to be decreased in size. The parotid and submandibular glands are symmetric bilaterally. No fluid collections are seen. IMPRESSION: Overall improvement in cervical lymphadenopathy when compared with prior examination from 04/04/2018. CT chest: FINDINGS: Mildly prominent lymph nodes in the axillary regions bilaterally are stable to perhaps slightly decreased in size. Some calcified mediastinal and hilar lymph nodes again noted consistent with prior granulomatous exposure. This appears similar to prior exam. No pericardial or pleural fluid is identified. Some atelectasis or infiltrate in the left upper lobe has improved since prior CT chest. No new parenchymal mass or infiltrate is identified. IMPRESSION: Stable CT chest since exam from 04/04/2018. CT abdomen and pelvis: FINDINGS: No discrete liver mass is seen. Gallbladder does demonstrate some questionable wall thickening. No biliary ductal dilatation is seen. The pancreas and spleen are unremarkable. There is no adrenal mass. The kidneys are unremarkable. Aorta is nonaneurysmal. Central retroperitoneal lymphadenopathy appears to be improved. A conglomerate of nodes in the left para-aortic region measures approximately 2.4 cm in aggregate compared with 2.9 cm on prior. Aortocaval nodes have decreased in size. Right common iliac chain lymph node has decreased measuring 2.5 cm compared with 2.7 cm. Numerous mesenteric nodes appear to be decreased in size. There continue to be some enlarged obturator lymph nodes but these have shown some decrease in size. Bilateral inguinal lymph nodes remain prominent but have decreased in size as well. There is a small fluid collection that has developed in the left groin measuring 6.2 x 4.4 cm, indeterminate. This could represent a seroma. Bladder is decompressed. Bony structures are nonacute. IMPRESSION: 1. Overall mild decrease in size of abdominal and pelvic lymphadenopathy when compared with exam from 04/04/2018. 2. Left groin fluid collection, perhaps seroma. 3. Questionable wall thickening of the gallbladder. Gallbladder ultrasound may be useful for further evaluation. Dictated by: Dictated on workstation # [id number]
== END ==
LOC: RAD 07:50
PROVIDERS: ATTEND Internal Medicine Hematology & Oncology
DX: C91.10 Chronic lymphocytic leukemia of B-cell type not having achieved remission (principal)
CPT/HCPCS: 70491; 71260; 74178

== ENCOUNTER → 2018-10-01 | Outpatient (RCR) | payer MEDICARE, OTHER ==
[2018-07-09 09:57] LABS: BASOPHILS % (AUTO) 0 % (0-10); EOSINOPHILS # (AUTO) 0.1 10^3/uL (0.0-0.3); EOSINOPHILS % (AUTO) 4 % (0-10); HEMATOCRIT 32 % (40-54); HEMOGLOBIN 10.8 G/DL (13.3-17.7); LYMPHOCYTES # (AUTO) 1.8 X 10^3 (1.0-4.0); LYMPHOCYTES % (AUTO) 66 % (12-44); MEAN CORPUSCULAR HEMOGLOBIN 30 PG (25-34); MEAN CORPUSCULAR HGB CONC 34 G/DL (32-36); MEAN CORPUSCULAR VOLUME 89 FL (80-99); MEAN PLATELET VOLUME 9.2 FL (7.4-10.4); MONOCYTES # (AUTO) 0.1 X 10^3 (0.0-1.0); MONOCYTES % (AUTO) 3 % (0-12); NEUTROPHILS # (AUTO) 0.7 X 10^3 (1.8-7.8); NEUTROPHILS % (AUTO) 27 % (42-75); PLATELET COUNT 260 10^3/uL (130-400); RED CELL DISTRIBUTION WIDTH 15.1 % (10.0-14.5); WHITE BLOOD COUNT 2.7 10^3/uL (4.3-11.0)
[2018-07-09 10:10] LABS: BUN/CREATININE RATIO 24; CALCIUM 9.3 MG/DL (8.5-10.1); CARBON DIOXIDE 24 MMOL/L (21-32); CHLORIDE 103 MMOL/L (98-107); CREATININE SERUM 0.79 MG/DL (0.60-1.30); GFR ESTIMATED > 60; GLUCOSE 156 MG/DL (70-105); POTASSIUM 4.5 MMOL/L (3.6-5.0); SODIUM 136 MMOL/L (135-145)
[2018-07-16 08:19] LABS: BASOPHILS % (AUTO) 1 % (0-10); EOSINOPHILS # (AUTO) 0.1 10^3/uL (0.0-0.3); EOSINOPHILS % (AUTO) 3 % (0-10); HEMATOCRIT 31 % (40-54); HEMOGLOBIN 10.4 G/DL (13.3-17.7); LYMPHOCYTES # (AUTO) 1.6 X 10^3 (1.0-4.0); LYMPHOCYTES % (AUTO) 60 % (12-44); MEAN CORPUSCULAR HEMOGLOBIN 30 PG (25-34); MEAN CORPUSCULAR HGB CONC 34 G/DL (32-36); MEAN CORPUSCULAR VOLUME 90 FL (80-99); MONOCYTES # (AUTO) 0.2 X 10^3 (0.0-1.0); MONOCYTES % (AUTO) 9 % (0-12); NEUTROPHILS # (AUTO) 0.7 X 10^3 (1.8-7.8); NEUTROPHILS % (AUTO) 28 % (42-75); PLATELET COUNT 292 10^3/uL (130-400); RED CELL DISTRIBUTION WIDTH 16.2 % (10.0-14.5); WHITE BLOOD COUNT 2.6 10^3/uL (4.3-11.0)
[2018-07-16 08:33] LABS: BUN/CREATININE RATIO 23; CALCIUM 9.6 MG/DL (8.5-10.1); CARBON DIOXIDE 21 MMOL/L (21-32); CHLORIDE 104 MMOL/L (98-107); CREATININE SERUM 0.87 MG/DL (0.60-1.30); GFR ESTIMATED > 60; GLUCOSE 140 MG/DL (70-105); POTASSIUM 4.2 MMOL/L (3.6-5.0); SODIUM 141 MMOL/L (135-145)
[2018-07-23 08:19] LABS: BASOPHILS % (AUTO) 1 % (0-10); EOSINOPHILS # (AUTO) 0.1 10^3/uL (0.0-0.3); EOSINOPHILS % (AUTO) 3 % (0-10); HEMATOCRIT 32 % (40-54); LYMPHOCYTES # (AUTO) 2.1 X 10^3 (1.0-4.0); LYMPHOCYTES % (AUTO) 41 % (12-44); MEAN CORPUSCULAR HEMOGLOBIN 30 PG (25-34); MEAN CORPUSCULAR HGB CONC 34 G/DL (32-36); MEAN CORPUSCULAR VOLUME 88 FL (80-99); MEAN PLATELET VOLUME 9.2 FL (7.4-10.4); MONOCYTES # (AUTO) 0.4 X 10^3 (0.0-1.0); MONOCYTES % (AUTO) 7 % (0-12); NEUTROPHILS # (AUTO) 2.5 X 10^3 (1.8-7.8); NEUTROPHILS % (AUTO) 48 % (42-75); PLATELET COUNT 265 10^3/uL (130-400); RED CELL DISTRIBUTION WIDTH 15.9 % (10.0-14.5); WHITE BLOOD COUNT 5.2 10^3/uL (4.3-11.0)
[2018-07-23 08:35] LABS: BUN/CREATININE RATIO 24; CALCIUM 9.2 MG/DL (8.5-10.1); CARBON DIOXIDE 21 MMOL/L (21-32); CHLORIDE 104 MMOL/L (98-107); CREATININE SERUM 0.85 MG/DL (0.60-1.30); GFR ESTIMATED > 60; GLUCOSE 150 MG/DL (70-105); POTASSIUM 3.9 MMOL/L (3.6-5.0); SODIUM 136 MMOL/L (135-145)
[2018-07-31 10:13] LABS: BASOPHILS % (AUTO) 1 % (0-10); EOSINOPHILS # (AUTO) 0.3 10^3/uL (0.0-0.3); EOSINOPHILS % (AUTO) 4 % (0-10); HEMATOCRIT 33 % (40-54); LYMPHOCYTES % (AUTO) 33 % (12-44); MEAN CORPUSCULAR HEMOGLOBIN 30 PG (25-34); MEAN CORPUSCULAR HGB CONC 34 G/DL (32-36); MEAN CORPUSCULAR VOLUME 89 FL (80-99); MEAN PLATELET VOLUME 9.9 FL (7.4-10.4); MONOCYTES # (AUTO) 0.4 X 10^3 (0.0-1.0); MONOCYTES % (AUTO) 7 % (0-12); NEUTROPHILS # (AUTO) 3.4 X 10^3 (1.8-7.8); NEUTROPHILS % (AUTO) 55 % (42-75); PLATELET COUNT 216 10^3/uL (130-400); RED CELL DISTRIBUTION WIDTH 16.2 % (10.0-14.5); WHITE BLOOD COUNT 6.1 10^3/uL (4.3-11.0)
[2018-07-31 10:31] LABS: ALANINE AMINOTRANSFERASE 15 U/L (0-55); ALKALINE PHOSPHATASE 86 U/L (40-136); BILIRUBIN,TOTAL 0.5 MG/DL (0.1-1.0); BUN/CREATININE RATIO 16; CALCIUM 8.9 MG/DL (8.5-10.1); CARBON DIOXIDE 24 MMOL/L (21-32); CHLORIDE 105 MMOL/L (98-107); CREATININE SERUM 0.92 MG/DL (0.60-1.30); GFR ESTIMATED > 60; GLUCOSE 151 MG/DL (70-105); POTASSIUM 4.1 MMOL/L (3.6-5.0); SODIUM 135 MMOL/L (135-145); TOTAL PROTEIN 6.1 GM/DL (6.4-8.2)
[2018-08-06 08:31] LABS: BASOPHILS % (AUTO) 0 % (0-10); EOSINOPHILS # (AUTO) 0.1 10^3/uL (0.0-0.3); EOSINOPHILS % (AUTO) 3 % (0-10); HEMATOCRIT 32 % (40-54); LYMPHOCYTES # (AUTO) 1.4 X 10^3 (1.0-4.0); LYMPHOCYTES % (AUTO) 42 % (12-44); MEAN CORPUSCULAR HEMOGLOBIN 30 PG (25-34); MEAN CORPUSCULAR HGB CONC 34 G/DL (32-36); MEAN CORPUSCULAR VOLUME 89 FL (80-99); MEAN PLATELET VOLUME 9.6 FL (7.4-10.4); MONOCYTES # (AUTO) 0.1 X 10^3 (0.0-1.0); MONOCYTES % (AUTO) 2 % (0-12); NEUTROPHILS # (AUTO) 1.8 X 10^3 (1.8-7.8); NEUTROPHILS % (AUTO) 53 % (42-75); PLATELET COUNT 213 10^3/uL (130-400); RED CELL DISTRIBUTION WIDTH 15.6 % (10.0-14.5); WHITE BLOOD COUNT 3.4 10^3/uL (4.3-11.0)
[2018-08-06 08:48] LABS: BUN/CREATININE RATIO 19; CARBON DIOXIDE 22 MMOL/L (21-32); CHLORIDE 104 MMOL/L (98-107); CREATININE SERUM 0.81 MG/DL (0.60-1.30); GFR ESTIMATED > 60; GLUCOSE 137 MG/DL (70-105); POTASSIUM 4.2 MMOL/L (3.6-5.0); SODIUM 135 MMOL/L (135-145)
[2018-08-13 08:39] LABS: BASOPHILS % (AUTO) 1 % (0-10); EOSINOPHILS # (AUTO) 0.1 10^3/uL (0.0-0.3); EOSINOPHILS % (AUTO) 5 % (0-10); HEMATOCRIT 29 % (40-54); LYMPHOCYTES # (AUTO) 1.3 X 10^3 (1.0-4.0); LYMPHOCYTES % (AUTO) 75 % (12-44); MEAN CORPUSCULAR HEMOGLOBIN 31 PG (25-34); MEAN CORPUSCULAR HGB CONC 34 G/DL (32-36); MEAN CORPUSCULAR VOLUME 91 FL (80-99); MONOCYTES # (AUTO) 0.2 X 10^3 (0.0-1.0); MONOCYTES % (AUTO) 9 % (0-12); NEUTROPHILS # (AUTO) 0.2 X 10^3 (1.8-7.8); NEUTROPHILS % (AUTO) 11 % (42-75); PLATELET COUNT 219 10^3/uL (130-400); RED CELL DISTRIBUTION WIDTH 16.3 % (10.0-14.5); WHITE BLOOD COUNT 1.8 10^3/uL (4.3-11.0)
[2018-08-13 08:54] LABS: BUN/CREATININE RATIO 27; CALCIUM 9.3 MG/DL (8.5-10.1); CARBON DIOXIDE 23 MMOL/L (21-32); CHLORIDE 104 MMOL/L (98-107); CREATININE SERUM 0.82 MG/DL (0.60-1.30); GFR ESTIMATED > 60; GLUCOSE 136 MG/DL (70-105); POTASSIUM 3.9 MMOL/L (3.6-5.0); SODIUM 137 MMOL/L (135-145)
[2018-08-20 08:54] LABS: BASOPHILS % (AUTO) 1 % (0-10); EOSINOPHILS # (AUTO) 0.1 10^3/uL (0.0-0.3); EOSINOPHILS % (AUTO) 3 % (0-10); HEMATOCRIT 31 % (40-54); HEMOGLOBIN 10.4 G/DL (13.3-17.7); LYMPHOCYTES # (AUTO) 1.3 X 10^3 (1.0-4.0); LYMPHOCYTES % (AUTO) 45 % (12-44); MEAN CORPUSCULAR HEMOGLOBIN 31 PG (25-34); MEAN CORPUSCULAR HGB CONC 34 G/DL (32-36); MEAN CORPUSCULAR VOLUME 90 FL (80-99); MONOCYTES # (AUTO) 0.2 X 10^3 (0.0-1.0); MONOCYTES % (AUTO) 5 % (0-12); NEUTROPHILS # (AUTO) 1.4 X 10^3 (1.8-7.8); NEUTROPHILS % (AUTO) 47 % (42-75); PLATELET COUNT 257 10^3/uL (130-400); RED CELL DISTRIBUTION WIDTH 15.4 % (10.0-14.5)
[2018-08-20 09:08] LABS: BUN/CREATININE RATIO 19; CALCIUM 9.1 MG/DL (8.5-10.1); CARBON DIOXIDE 23 MMOL/L (21-32); CHLORIDE 102 MMOL/L (98-107); GFR ESTIMATED > 60; GLUCOSE 127 MG/DL (70-105); POTASSIUM 4.2 MMOL/L (3.6-5.0); SODIUM 134 MMOL/L (135-145)
[2018-08-27 09:15] LABS: BASOPHILS % (AUTO) 1 % (0-10); EOSINOPHILS # (AUTO) 0.1 10^3/uL (0.0-0.3); EOSINOPHILS % (AUTO) 4 % (0-10); HEMATOCRIT 30 % (40-54); HEMOGLOBIN 10.2 G/DL (13.3-17.7); LYMPHOCYTES # (AUTO) 0.7 X 10^3 (1.0-4.0); LYMPHOCYTES % (AUTO) 32 % (12-44); MEAN CORPUSCULAR HEMOGLOBIN 30 PG (25-34); MEAN CORPUSCULAR HGB CONC 34 G/DL (32-36); MEAN CORPUSCULAR VOLUME 89 FL (80-99); MEAN PLATELET VOLUME 9.1 FL (7.4-10.4); MONOCYTES # (AUTO) 0.2 X 10^3 (0.0-1.0); MONOCYTES % (AUTO) 9 % (0-12); NEUTROPHILS # (AUTO) 1.2 X 10^3 (1.8-7.8); NEUTROPHILS % (AUTO) 55 % (42-75); PLATELET COUNT 199 10^3/uL (130-400); RED CELL DISTRIBUTION WIDTH 15.6 % (10.0-14.5); WHITE BLOOD COUNT 2.1 10^3/uL (4.3-11.0)
[2018-08-27 09:32] LABS: ALANINE AMINOTRANSFERASE 22 U/L (0-55); ALBUMIN 3.9 GM/DL (3.2-4.5); ALKALINE PHOSPHATASE 94 U/L (40-136); BILIRUBIN,TOTAL 0.7 MG/DL (0.1-1.0); BUN/CREATININE RATIO 20; CARBON DIOXIDE 22 MMOL/L (21-32); CHLORIDE 104 MMOL/L (98-107); GFR ESTIMATED > 60; GLUCOSE 104 MG/DL (70-105); SODIUM 136 MMOL/L (135-145)
[2018-09-10 09:15] LABS: BASOPHILS % (AUTO) 1 % (0-10); EOSINOPHILS # (AUTO) 0.1 10^3/uL (0.0-0.3); EOSINOPHILS % (AUTO) 2 % (0-10); HEMATOCRIT 33 % (40-54); LYMPHOCYTES # (AUTO) 2.1 X 10^3 (1.0-4.0); LYMPHOCYTES % (AUTO) 48 % (12-44); MEAN CORPUSCULAR HEMOGLOBIN 30 PG (25-34); MEAN CORPUSCULAR HGB CONC 34 G/DL (32-36); MEAN CORPUSCULAR VOLUME 91 FL (80-99); MEAN PLATELET VOLUME 9.5 FL (7.4-10.4); MONOCYTES # (AUTO) 0.4 X 10^3 (0.0-1.0); MONOCYTES % (AUTO) 10 % (0-12); NEUTROPHILS # (AUTO) 1.7 X 10^3 (1.8-7.8); NEUTROPHILS % (AUTO) 39 % (42-75); PLATELET COUNT 204 10^3/uL (130-400); RED CELL DISTRIBUTION WIDTH 15.5 % (10.0-14.5); WHITE BLOOD COUNT 4.3 10^3/uL (4.3-11.0)
[2018-09-10 09:40] LABS: ALANINE AMINOTRANSFERASE 17 U/L (0-55); ALBUMIN 4.1 GM/DL (3.2-4.5); ALKALINE PHOSPHATASE 89 U/L (40-136); BILIRUBIN,TOTAL 0.4 MG/DL (0.1-1.0); BUN/CREATININE RATIO 19; CALCIUM 9.1 MG/DL (8.5-10.1); CARBON DIOXIDE 25 MMOL/L (21-32); CHLORIDE 102 MMOL/L (98-107); CREATININE SERUM 0.84 MG/DL (0.60-1.30); GFR ESTIMATED > 60; GLUCOSE 133 MG/DL (70-105); POTASSIUM 3.9 MMOL/L (3.6-5.0); SODIUM 135 MMOL/L (135-145); TOTAL PROTEIN 6.2 GM/DL (6.4-8.2)
[2018-09-17 08:34] LABS: BASOPHILS % (AUTO) 0 % (0-10); EOSINOPHILS # (AUTO) 0.1 10^3/uL (0.0-0.3); EOSINOPHILS % (AUTO) 7 % (0-10); HEMATOCRIT 33 % (40-54); HEMOGLOBIN 11.1 G/DL (13.3-17.7); LYMPHOCYTES # (AUTO) 0.7 X 10^3 (1.0-4.0); LYMPHOCYTES % (AUTO) 57 % (12-44); MEAN CORPUSCULAR HEMOGLOBIN 31 PG (25-34); MEAN CORPUSCULAR HGB CONC 34 G/DL (32-36); MEAN CORPUSCULAR VOLUME 91 FL (80-99); MEAN PLATELET VOLUME 9.6 FL (7.4-10.4); MONOCYTES # (AUTO) 0.1 X 10^3 (0.0-1.0); MONOCYTES % (AUTO) 6 % (0-12); NEUTROPHILS # (AUTO) 0.4 X 10^3 (1.8-7.8); NEUTROPHILS % (AUTO) 31 % (42-75); PLATELET COUNT 149 10^3/uL (130-400); RED CELL DISTRIBUTION WIDTH 14.9 % (10.0-14.5)
[2018-09-17 08:36] LABS: WHITE BLOOD COUNT 1.2 10^3/uL (4.3-11.0)
[2018-09-17 08:47] LABS: BUN/CREATININE RATIO 24; CALCIUM 9.2 MG/DL (8.5-10.1); CARBON DIOXIDE 22 MMOL/L (21-32); CHLORIDE 101 MMOL/L (98-107); CREATININE SERUM 0.79 MG/DL (0.60-1.30); GFR ESTIMATED > 60; GLUCOSE 182 MG/DL (70-105); POTASSIUM 4.2 MMOL/L (3.6-5.0); SODIUM 134 MMOL/L (135-145)
[2018-09-24 08:15] LABS: BASOPHILS % (AUTO) 1 % (0-10); EOSINOPHILS # (AUTO) 0.1 10^3/uL (0.0-0.3); EOSINOPHILS % (AUTO) 3 % (0-10); HEMATOCRIT 31 % (40-54); HEMOGLOBIN 10.5 G/DL (13.3-17.7); LYMPHOCYTES # (AUTO) 0.7 X 10^3 (1.0-4.0); LYMPHOCYTES % (AUTO) 19 % (12-44); MEAN CORPUSCULAR HEMOGLOBIN 31 PG (25-34); MEAN CORPUSCULAR HGB CONC 34 G/DL (32-36); MEAN CORPUSCULAR VOLUME 93 FL (80-99); MEAN PLATELET VOLUME 9.7 FL (7.4-10.4); MONOCYTES # (AUTO) 0.1 X 10^3 (0.0-1.0); MONOCYTES % (AUTO) 3 % (0-12); NEUTROPHILS # (AUTO) 2.6 X 10^3 (1.8-7.8); NEUTROPHILS % (AUTO) 75 % (42-75); PLATELET COUNT 161 10^3/uL (130-400); RED CELL DISTRIBUTION WIDTH 15.7 % (10.0-14.5); WHITE BLOOD COUNT 3.5 10^3/uL (4.3-11.0)
[2018-09-24 08:33] LABS: BUN/CREATININE RATIO 23; CALCIUM 9.1 MG/DL (8.5-10.1); CARBON DIOXIDE 22 MMOL/L (21-32); CHLORIDE 103 MMOL/L (98-107); CREATININE SERUM 0.93 MG/DL (0.60-1.30); GFR ESTIMATED > 60; GLUCOSE 176 MG/DL (70-105); POTASSIUM 4.1 MMOL/L (3.6-5.0); SODIUM 136 MMOL/L (135-145)
[~2018-10-01] VITALS: Ht 177.8 cm; Wt 128.8 kg
[~2018-10-01] MED LIST changes: +ACETAMINOPHEN 500 MG TAB (TYLENOL) CANCER CTR PO PRN; -BARIUM SUSPENSION 2.1% (VANILLA SILQ) 450 ML PO ONE; +CYCLOPHOSPHAMIDE IV SCH; +FLUDARABINE PHOSPHATE IV SCH; -HOLD METFORMIN - RECEIVED CONTRAST 20 ML VIAL IV SCH; -IOHEXOL 350 MG/ML 100 ML (OMNIPAQUE 350) VIAL IV ONE; -NS 100 ML (IVPB) BAG IV ONE; +NS IV 1000 ML (CANCER CTR) 1,000 ML ONE; +NS IV 1000 ML (CANCER CTR) IV SCH; +NS IV 500 ML (CANCER CENTER) 500 ML ONE; +NS IV SCH; +ONDANSETRON MDV (CANCER CENTER 16 MG in NS (IVPB) CANCER CENTER 50 ML IV SCH; +ONDANSETRON MDV (CANCER CENTER 16 MG, DEXAMETHASONE INJECTION 10 MG in NS (IVPB) CANCER... IV SCH; +PALONOSETRON HCL 0.25 MG, DEXAMETHASONE INJECTION 10 MG in NS (IVPB) CANCER CENTER 50 ML IV SCH; +PEGFILGRASTIM 6 MG/0.6ML NEULASTA SC SCH; +[UNRECOGNIZED DRUG - OTHER] IV SCH; +diphenhydrAMINE 50 MG/ML INJ (CANCER CENTER) IV PRN; +methylPREDNISolone 125 MG/2 ML (SOLU-MEDROL) CANCER CTR IV SCH
[2018-10-01 08:23] LABS: BASOPHILS % (AUTO) 1 % (0-10); EOSINOPHILS # (AUTO) 0.1 10^3/uL (0.0-0.3); EOSINOPHILS % (AUTO) 5 % (0-10); HEMATOCRIT 31 % (40-54); HEMOGLOBIN 10.4 G/DL (13.3-17.7); LYMPHOCYTES # (AUTO) 0.8 X 10^3 (1.0-4.0); LYMPHOCYTES % (AUTO) 27 % (12-44); MEAN CORPUSCULAR HEMOGLOBIN 32 PG (25-34); MEAN CORPUSCULAR HGB CONC 34 G/DL (32-36); MEAN CORPUSCULAR VOLUME 93 FL (80-99); MEAN PLATELET VOLUME 9.1 FL (7.4-10.4); MONOCYTES # (AUTO) 0.2 X 10^3 (0.0-1.0); MONOCYTES % (AUTO) 7 % (0-12); NEUTROPHILS # (AUTO) 1.8 X 10^3 (1.8-7.8); NEUTROPHILS % (AUTO) 61 % (42-75); PLATELET COUNT 210 10^3/uL (130-400); RED CELL DISTRIBUTION WIDTH 15.3 % (10.0-14.5); WHITE BLOOD COUNT 2.9 10^3/uL (4.3-11.0)
[2018-10-01 08:37] LABS: BUN/CREATININE RATIO 23; CALCIUM 9.1 MG/DL (8.5-10.1); CARBON DIOXIDE 20 MMOL/L (21-32); CHLORIDE 107 MMOL/L (98-107); CREATININE SERUM 0.88 MG/DL (0.60-1.30); GFR ESTIMATED > 60; GLUCOSE 129 MG/DL (70-105); POTASSIUM 3.9 MMOL/L (3.6-5.0); SODIUM 139 MMOL/L (135-145)
== END | disposition home or self-care (01) ==
LOC: ONC 07-03 08:55
PROVIDERS: ATTEND Internal Medicine Hematology & Oncology
DX: Z51.11 Encounter for antineoplastic chemotherapy (principal); C91.10 Chronic lymphocytic leukemia of B-cell type not having achieved remission; D64.9 Anemia, unspecified; E11.9 Type 2 diabetes mellitus without complications; I10 Essential (primary) hypertension; Z79.82 Long term (current) use of aspirin; Z79.4 Long term (current) use of insulin; Z79.899 Other long term (current) drug therapy; Z96.653 Presence of artificial knee joint, bilateral
CPT/HCPCS: 36415; 36591; 80048; 80053; 83615; 85025; 96372; 96375; 96376; 96413; 96415; 96417

== ENCOUNTER → 2018-11-28 | Outpatient (CLI) | payer MEDICARE, OTHER ==
[~2018-11-28] MED LIST changes: -ACETAMINOPHEN 500 MG TAB (TYLENOL) CANCER CTR PO PRN; +BARIUM SUSPENSION 2.1% (VANILLA SILQ) 450 ML PO ONE; -CYCLOPHOSPHAMIDE IV SCH; -FLUDARABINE PHOSPHATE IV SCH; +HOLD METFORMIN - RECEIVED CONTRAST 20 ML VIAL IV SCH; +IOHEXOL 350 MG/ML 100 ML (OMNIPAQUE 350) VIAL IV ONE; +NS 100 ML (IVPB) BAG IV ONE; -NS IV 1000 ML (CANCER CTR) 1,000 ML ONE; -NS IV 1000 ML (CANCER CTR) IV SCH; -NS IV 500 ML (CANCER CENTER) 500 ML ONE; -NS IV SCH; -ONDANSETRON MDV (CANCER CENTER 16 MG in NS (IVPB) CANCER CENTER 50 ML IV SCH; -ONDANSETRON MDV (CANCER CENTER 16 MG, DEXAMETHASONE INJECTION 10 MG in NS (IVPB) CANCER... IV SCH; -PALONOSETRON HCL 0.25 MG, DEXAMETHASONE INJECTION 10 MG in NS (IVPB) CANCER CENTER 50 ML IV SCH; -PEGFILGRASTIM 6 MG/0.6ML NEULASTA SC SCH; -[UNRECOGNIZED DRUG - OTHER] IV SCH; -diphenhydrAMINE 50 MG/ML INJ (CANCER CENTER) IV PRN; -methylPREDNISolone 125 MG/2 ML (SOLU-MEDROL) CANCER CTR IV SCH
--- NOTE | 2018-11-28 12:02 | Diagnostic Imaging Report ---
INDICATION: Chronic lymphocytic leukemia. TECHNIQUE: Axial imaging through the neck, chest, abdomen and pelvis was performed after the administration of intravenous contrast. COMPARISON: Correlation is made with prior CT from 08/20/2018. FINDINGS: CT NECK: Visualized intracranial structures are unremarkable. Posterior nasopharynx, oropharynx and larynx are unremarkable. No thyroid masses are seen. Bilateral parotid and submandibular glands are symmetric. Previously noted right-sided level II lymph node measures 14 mm x 9 mm compared with 15 mm x 8 mm on prior. Small posterior cervical and submandibular lymph nodes appear stable. The left supraclavicular node adjacent to the left lobe of the thyroid previously described measures 22 mm x 16 mm compared with 21 mm x 15 mm on prior. No new lymphadenopathy is seen. IMPRESSION: Stable cervical lymphadenopathy when compared with examination from 08/20/2018. CT CHEST: Bilateral mildly prominent axillary lymph nodes appear to be stable. Calcified and noncalcified mediastinal and hilar lymph nodes appear stable. No pericardial or pleural fluid is seen. The lungs are clear of acute infiltrates. No nodules or masses are seen. IMPRESSION: Stable CT chest when compared with examination from 08/20/2018. Mildly prominent mediastinal, hilar and axillar nodes are stable. CT ABDOMEN AND PELVIS: The liver remains unremarkable. Gallbladder is unremarkable. No biliary duct dilatation is seen. Pancreas is unremarkable. Spleen does not appear to be enlarged. There is no adrenal mass. Kidneys are unremarkable. Aorta is nonaneurysmal. Central retroperitoneal lymphadenopathy appears similar to prior exam. Left periaortic conglomerate of nodes is stable at 2.3 cm. A preaortic node at the same level measures 21 mm x 15 mm compared with approximately 26 mm x 16 mm on prior. There are small aortocaval nodes present as well. Right common iliac chain lymph node is approximately 23 mm compared with 25 mm. Left internal iliac mariusz aggregate is approximately 32 mm x 18 mm compared with 32 mm x 21 mm. Enlarged obturator nodes show no real change bilaterally. Prominent lymph nodes left inguinal region are stable. The small fluid collection in left groin has nearly completely resolved. No free fluid in the abdomen or pelvis is seen. Bowel loops are normal caliber. Bladder and prostate are unremarkable. IMPRESSION: Overall stable abdominal and pelvic lymphadenopathy when compared with examination from 08/20/2018. Dictated by: Dictated on workstation # [id number]
== END ==
LOC: RAD 10:33
PROVIDERS: ATTEND Internal Medicine Hematology & Oncology
DX: C91.10 Chronic lymphocytic leukemia of B-cell type not having achieved remission (principal); R59.1 Generalized enlarged lymph nodes
CPT/HCPCS: 70491; 71260; 74178

== ENCOUNTER 2018-12-31 09:44 | Outpatient (RCR) | payer MEDICARE, OTHER ==
[2018-10-09 09:29] LABS: BASOPHILS % (AUTO) 1 % (0-10); EOSINOPHILS # (AUTO) 0.1 10^3/uL (0.0-0.3); EOSINOPHILS % (AUTO) 5 % (0-10); HEMATOCRIT 31 % (40-54); HEMOGLOBIN 10.6 G/DL (13.3-17.7); LYMPHOCYTES # (AUTO) 0.8 X 10^3 (1.0-4.0); LYMPHOCYTES % (AUTO) 30 % (12-44); MEAN CORPUSCULAR HEMOGLOBIN 32 PG (25-34); MEAN CORPUSCULAR HGB CONC 34 G/DL (32-36); MEAN CORPUSCULAR VOLUME 92 FL (80-99); MEAN PLATELET VOLUME 9.4 FL (7.4-10.4); MONOCYTES # (AUTO) 0.2 X 10^3 (0.0-1.0); MONOCYTES % (AUTO) 9 % (0-12); NEUTROPHILS # (AUTO) 1.4 X 10^3 (1.8-7.8); NEUTROPHILS % (AUTO) 55 % (42-75); PLATELET COUNT 177 10^3/uL (130-400); RED CELL DISTRIBUTION WIDTH 14.6 % (10.0-14.5); WHITE BLOOD COUNT 2.6 10^3/uL (4.3-11.0)
[2018-10-09 09:46] LABS: ALANINE AMINOTRANSFERASE 18 U/L (0-55); ALBUMIN 4.1 GM/DL (3.2-4.5); ALKALINE PHOSPHATASE 100 U/L (40-136); BILIRUBIN,TOTAL 0.5 MG/DL (0.1-1.0); BUN/CREATININE RATIO 23; CALCIUM 9.2 MG/DL (8.5-10.1); CARBON DIOXIDE 23 MMOL/L (21-32); CHLORIDE 105 MMOL/L (98-107); CREATININE SERUM 0.86 MG/DL (0.60-1.30); GFR ESTIMATED > 60; GLUCOSE 116 MG/DL (70-105); POTASSIUM 3.8 MMOL/L (3.6-5.0); SODIUM 139 MMOL/L (135-145); TOTAL PROTEIN 6.2 GM/DL (6.4-8.2)
[2018-10-15 08:47] LABS: BASOPHILS % (AUTO) 1 % (0-10); EOSINOPHILS # (AUTO) 0.1 10^3/uL (0.0-0.3); EOSINOPHILS % (AUTO) 7 % (0-10); HEMATOCRIT 32 % (40-54); HEMOGLOBIN 10.9 G/DL (13.3-17.7); LYMPHOCYTES # (AUTO) 0.3 X 10^3 (1.0-4.0); LYMPHOCYTES % (AUTO) 43 % (12-44); MEAN CORPUSCULAR HEMOGLOBIN 31 PG (25-34); MEAN CORPUSCULAR HGB CONC 34 G/DL (32-36); MEAN CORPUSCULAR VOLUME 91 FL (80-99); MEAN PLATELET VOLUME 9.5 FL (7.4-10.4); MONOCYTES % (AUTO) 5 % (0-12); NEUTROPHILS # (AUTO) 0.3 X 10^3 (1.8-7.8); NEUTROPHILS % (AUTO) 43 % (42-75); PLATELET COUNT 145 10^3/uL (130-400); RED CELL DISTRIBUTION WIDTH 14.3 % (10.0-14.5)
[2018-10-15 08:49] LABS: WHITE BLOOD COUNT 0.7 10^3/uL (4.3-11.0)
[2018-10-15 09:11] LABS: BUN/CREATININE RATIO 19; CALCIUM 9.1 MG/DL (8.5-10.1); CARBON DIOXIDE 24 MMOL/L (21-32); CHLORIDE 103 MMOL/L (98-107); GFR ESTIMATED > 60; GLUCOSE 145 MG/DL (70-105); POTASSIUM 4.2 MMOL/L (3.6-5.0); SODIUM 137 MMOL/L (135-145)
[2018-10-22 08:26] LABS: BASOPHILS % (AUTO) 0 % (0-10); EOSINOPHILS # (AUTO) 0.1 10^3/uL (0.0-0.3); EOSINOPHILS % (AUTO) 2 % (0-10); HEMATOCRIT 31 % (40-54); HEMOGLOBIN 10.2 G/DL (13.3-17.7); LYMPHOCYTES # (AUTO) 0.9 X 10^3 (1.0-4.0); LYMPHOCYTES % (AUTO) 24 % (12-44); MEAN CORPUSCULAR HEMOGLOBIN 31 PG (25-34); MEAN CORPUSCULAR HGB CONC 33 G/DL (32-36); MEAN CORPUSCULAR VOLUME 93 FL (80-99); MEAN PLATELET VOLUME 9.4 FL (7.4-10.4); MONOCYTES # (AUTO) 0.3 X 10^3 (0.0-1.0); MONOCYTES % (AUTO) 8 % (0-12); NEUTROPHILS # (AUTO) 2.3 X 10^3 (1.8-7.8); NEUTROPHILS % (AUTO) 66 % (42-75); PLATELET COUNT 152 10^3/uL (130-400); RED CELL DISTRIBUTION WIDTH 15.4 % (10.0-14.5); WHITE BLOOD COUNT 3.6 10^3/uL (4.3-11.0)
[2018-10-22 08:45] LABS: BUN/CREATININE RATIO 20; CALCIUM 8.9 MG/DL (8.5-10.1); CARBON DIOXIDE 22 MMOL/L (21-32); CHLORIDE 103 MMOL/L (98-107); CREATININE SERUM 0.81 MG/DL (0.60-1.30); GFR ESTIMATED > 60; GLUCOSE 210 MG/DL (70-105); POTASSIUM 4.2 MMOL/L (3.6-5.0); SODIUM 135 MMOL/L (135-145)
[2018-10-29 08:16] LABS: BASOPHILS % (AUTO) 1 % (0-10); EOSINOPHILS # (AUTO) 0.2 10^3/uL (0.0-0.3); EOSINOPHILS % (AUTO) 3 % (0-10); HEMATOCRIT 32 % (40-54); HEMOGLOBIN 10.8 G/DL (13.3-17.7); LYMPHOCYTES # (AUTO) 1.2 X 10^3 (1.0-4.0); LYMPHOCYTES % (AUTO) 20 % (12-44); MEAN CORPUSCULAR HEMOGLOBIN 32 PG (25-34); MEAN CORPUSCULAR HGB CONC 34 G/DL (32-36); MEAN CORPUSCULAR VOLUME 93 FL (80-99); MEAN PLATELET VOLUME 9.2 FL (7.4-10.4); MONOCYTES # (AUTO) 0.2 X 10^3 (0.0-1.0); MONOCYTES % (AUTO) 4 % (0-12); NEUTROPHILS # (AUTO) 4.4 X 10^3 (1.8-7.8); NEUTROPHILS % (AUTO) 73 % (42-75); PLATELET COUNT 217 10^3/uL (130-400); RED CELL DISTRIBUTION WIDTH 15.5 % (10.0-14.5)
[2018-10-29 08:32] LABS: BUN/CREATININE RATIO 23; CALCIUM 9.2 MG/DL (8.5-10.1); CARBON DIOXIDE 23 MMOL/L (21-32); CHLORIDE 105 MMOL/L (98-107); CREATININE SERUM 0.81 MG/DL (0.60-1.30); GFR ESTIMATED > 60; GLUCOSE 121 MG/DL (70-105); POTASSIUM 4.2 MMOL/L (3.6-5.0); SODIUM 138 MMOL/L (135-145)
[2018-11-06 10:24] LABS: BASOPHILS % (AUTO) 1 % (0-10); EOSINOPHILS # (AUTO) 0.1 10^3/uL (0.0-0.3); EOSINOPHILS % (AUTO) 5 % (0-10); HEMATOCRIT 29 % (40-54); HEMOGLOBIN 9.8 G/DL (13.3-17.7); LYMPHOCYTES # (AUTO) 0.6 X 10^3 (1.0-4.0); LYMPHOCYTES % (AUTO) 23 % (12-44); MEAN CORPUSCULAR HEMOGLOBIN 32 PG (25-34); MEAN CORPUSCULAR HGB CONC 34 G/DL (32-36); MEAN CORPUSCULAR VOLUME 92 FL (80-99); MEAN PLATELET VOLUME 8.7 FL (7.4-10.4); MONOCYTES # (AUTO) 0.3 X 10^3 (0.0-1.0); MONOCYTES % (AUTO) 12 % (0-12); NEUTROPHILS # (AUTO) 1.5 X 10^3 (1.8-7.8); NEUTROPHILS % (AUTO) 60 % (42-75); PLATELET COUNT 156 10^3/uL (130-400); RED CELL DISTRIBUTION WIDTH 15.1 % (10.0-14.5); WHITE BLOOD COUNT 2.4 10^3/uL (4.3-11.0)
[2018-11-06 10:49] LABS: ALANINE AMINOTRANSFERASE 22 U/L (0-55); ALKALINE PHOSPHATASE 83 U/L (40-136); BILIRUBIN,TOTAL 0.8 MG/DL (0.1-1.0); BUN/CREATININE RATIO 22; CALCIUM 8.7 MG/DL (8.5-10.1); CARBON DIOXIDE 26 MMOL/L (21-32); CHLORIDE 106 MMOL/L (98-107); CREATININE SERUM 0.85 MG/DL (0.60-1.30); GFR ESTIMATED > 60; GLUCOSE 111 MG/DL (70-105); POTASSIUM 4.1 MMOL/L (3.6-5.0); SODIUM 139 MMOL/L (135-145)
[2018-11-13 08:40] LABS: BASOPHILS % (AUTO) 1 % (0-10); EOSINOPHILS # (AUTO) 0.1 10^3/uL (0.0-0.3); EOSINOPHILS % (AUTO) 3 % (0-10); HEMATOCRIT 30 % (40-54); HEMOGLOBIN 10.4 G/DL (13.3-17.7); LYMPHOCYTES # (AUTO) 1.4 X 10^3 (1.0-4.0); LYMPHOCYTES % (AUTO) 65 % (12-44); MEAN CORPUSCULAR HEMOGLOBIN 32 PG (25-34); MEAN CORPUSCULAR HGB CONC 35 G/DL (32-36); MEAN CORPUSCULAR VOLUME 93 FL (80-99); MEAN PLATELET VOLUME 8.9 FL (7.4-10.4); MONOCYTES # (AUTO) 0.1 X 10^3 (0.0-1.0); MONOCYTES % (AUTO) 5 % (0-12); NEUTROPHILS # (AUTO) 0.5 X 10^3 (1.8-7.8); NEUTROPHILS % (AUTO) 25 % (42-75); PLATELET COUNT 152 10^3/uL (130-400); RED CELL DISTRIBUTION WIDTH 15.2 % (10.0-14.5); WHITE BLOOD COUNT 2.1 10^3/uL (4.3-11.0)
[2018-11-13 08:59] LABS: BUN/CREATININE RATIO 23; CALCIUM 8.7 MG/DL (8.5-10.1); CARBON DIOXIDE 24 MMOL/L (21-32); CHLORIDE 104 MMOL/L (98-107); GFR ESTIMATED > 60; GLUCOSE 117 MG/DL (70-105); POTASSIUM 4.3 MMOL/L (3.6-5.0); SODIUM 137 MMOL/L (135-145)
[2018-11-19 12:24] LABS: BASOPHILS % (AUTO) 1 % (0-10); EOSINOPHILS # (AUTO) 0.1 10^3/uL (0.0-0.3); EOSINOPHILS % (AUTO) 3 % (0-10); HEMATOCRIT 31 % (40-54); HEMOGLOBIN 10.1 G/DL (13.3-17.7); LYMPHOCYTES # (AUTO) 1.4 X 10^3 (1.0-4.0); LYMPHOCYTES % (AUTO) 34 % (12-44); MEAN CORPUSCULAR HEMOGLOBIN 32 PG (25-34); MEAN CORPUSCULAR HGB CONC 33 G/DL (32-36); MEAN CORPUSCULAR VOLUME 97 FL (80-99); MEAN PLATELET VOLUME 9.4 FL (7.4-10.4); MONOCYTES # (AUTO) 0.1 X 10^3 (0.0-1.0); MONOCYTES % (AUTO) 3 % (0-12); NEUTROPHILS # (AUTO) 2.4 X 10^3 (1.8-7.8); NEUTROPHILS % (AUTO) 60 % (42-75); PLATELET COUNT 148 10^3/uL (130-400); RED CELL DISTRIBUTION WIDTH 16.7 % (10.0-14.5)
[2018-11-19 12:50] LABS: BUN/CREATININE RATIO 21; CALCIUM 8.8 MG/DL (8.5-10.1); CARBON DIOXIDE 23 MMOL/L (21-32); CHLORIDE 109 MMOL/L (98-107); CREATININE SERUM 0.89 MG/DL (0.60-1.30); GFR ESTIMATED > 60; GLUCOSE 148 MG/DL (70-105); POTASSIUM 4.2 MMOL/L (3.6-5.0); SODIUM 141 MMOL/L (135-145)
[2018-11-27 08:15] LABS: BASOPHILS % (AUTO) 1 % (0-10); EOSINOPHILS # (AUTO) 0.2 10^3/uL (0.0-0.3); EOSINOPHILS % (AUTO) 4 % (0-10); HEMATOCRIT 30 % (40-54); HEMOGLOBIN 10.1 G/DL (13.3-17.7); LYMPHOCYTES # (AUTO) 1.5 X 10^3 (1.0-4.0); LYMPHOCYTES % (AUTO) 39 % (12-44); MEAN CORPUSCULAR HEMOGLOBIN 32 PG (25-34); MEAN CORPUSCULAR HGB CONC 34 G/DL (32-36); MEAN CORPUSCULAR VOLUME 94 FL (80-99); MEAN PLATELET VOLUME 9.2 FL (7.4-10.4); MONOCYTES # (AUTO) 0.2 X 10^3 (0.0-1.0); MONOCYTES % (AUTO) 6 % (0-12); NEUTROPHILS % (AUTO) 51 % (42-75); PLATELET COUNT 208 10^3/uL (130-400); RED CELL DISTRIBUTION WIDTH 15.7 % (10.0-14.5)
[2018-11-27 08:32] LABS: BUN/CREATININE RATIO 25; CARBON DIOXIDE 23 MMOL/L (21-32); CHLORIDE 106 MMOL/L (98-107); CREATININE SERUM 0.81 MG/DL (0.60-1.30); GFR ESTIMATED > 60; GLUCOSE 143 MG/DL (70-105); POTASSIUM 3.9 MMOL/L (3.6-5.0); SODIUM 137 MMOL/L (135-145)
[2018-12-03 10:08] LABS: BASOPHILS % (AUTO) 1 % (0-10); EOSINOPHILS # (AUTO) 0.3 10^3/uL (0.0-0.3); EOSINOPHILS % (AUTO) 6 % (0-10); HEMATOCRIT 31 % (40-54); HEMOGLOBIN 10.5 G/DL (13.3-17.7); LYMPHOCYTES # (AUTO) 1.4 X 10^3 (1.0-4.0); LYMPHOCYTES % (AUTO) 32 % (12-44); MEAN CORPUSCULAR HEMOGLOBIN 32 PG (25-34); MEAN CORPUSCULAR HGB CONC 34 G/DL (32-36); MEAN CORPUSCULAR VOLUME 93 FL (80-99); MEAN PLATELET VOLUME 9.2 FL (7.4-10.4); MONOCYTES # (AUTO) 0.3 X 10^3 (0.0-1.0); MONOCYTES % (AUTO) 7 % (0-12); NEUTROPHILS # (AUTO) 2.5 X 10^3 (1.8-7.8); NEUTROPHILS % (AUTO) 55 % (42-75); PLATELET COUNT 223 10^3/uL (130-400); RED CELL DISTRIBUTION WIDTH 15.2 % (10.0-14.5); WHITE BLOOD COUNT 4.5 10^3/uL (4.3-11.0)
[2018-12-03 10:29] LABS: ALANINE AMINOTRANSFERASE 16 U/L (0-55); ALKALINE PHOSPHATASE 100 U/L (40-136); BILIRUBIN,TOTAL 0.6 MG/DL (0.1-1.0); BUN/CREATININE RATIO 25; CALCIUM 9.1 MG/DL (8.5-10.1); CARBON DIOXIDE 23 MMOL/L (21-32); CHLORIDE 105 MMOL/L (98-107); CREATININE SERUM 0.79 MG/DL (0.60-1.30); GFR ESTIMATED > 60; GLUCOSE 134 MG/DL (70-105); POTASSIUM 3.9 MMOL/L (3.6-5.0); SODIUM 137 MMOL/L (135-145)
[~2018-12-31] VITALS: Ht 177.8 cm; Wt 133.4 kg
[~2018-12-31 09:44] MED LIST changes: +ACETAMINOPHEN 500 MG TAB (TYLENOL) CANCER CTR PO PRN; -BARIUM SUSPENSION 2.1% (VANILLA SILQ) 450 ML PO ONE; +CYCLOPHOSPHAMIDE IV SCH; +FLUDARABINE PHOSPHATE IV SCH; -HOLD METFORMIN - RECEIVED CONTRAST 20 ML VIAL IV SCH; -IOHEXOL 350 MG/ML 100 ML (OMNIPAQUE 350) VIAL IV ONE; -NS 100 ML (IVPB) BAG IV ONE; +NS IV 1000 ML (CANCER CTR) IV SCH; +NS IV 500 ML (CANCER CENTER) 500 ML ONE; +NS IV SCH; +ONDANSETRON MDV (CANCER CENTER 16 MG in NS (IVPB) CANCER CENTER 50 ML IV SCH; +ONDANSETRON MDV (CANCER CENTER 16 MG, DEXAMETHASONE INJECTION 10 MG in NS (IVPB) CANCER... IV SCH; +PALONOSETRON HCL 0.25 MG, DEXAMETHASONE INJECTION 10 MG in NS (IVPB) CANCER CENTER 50 ML IV SCH; +PEGFILGRASTIM 6 MG/0.6ML NEULASTA SC SCH; +[UNRECOGNIZED DRUG - OTHER] IV SCH; +diphenhydrAMINE 50 MG/ML INJ (CANCER CENTER) IV PRN; +methylPREDNISolone 125 MG/2 ML (SOLU-MEDROL) CANCER CTR IV SCH
[2018-12-31 10:08] LABS: BASOPHILS % (AUTO) 1 % (0-10); EOSINOPHILS # (AUTO) 0.2 10^3/uL (0.0-0.3); EOSINOPHILS % (AUTO) 4 % (0-10); HEMATOCRIT 32 % (40-54); HEMOGLOBIN 10.6 G/DL (13.3-17.7); LYMPHOCYTES # (AUTO) 1.9 X 10^3 (1.0-4.0); LYMPHOCYTES % (AUTO) 52 % (12-44); MEAN CORPUSCULAR HEMOGLOBIN 31 PG (25-34); MEAN CORPUSCULAR HGB CONC 33 G/DL (32-36); MEAN CORPUSCULAR VOLUME 92 FL (80-99); MEAN PLATELET VOLUME 8.9 FL (7.4-10.4); MONOCYTES # (AUTO) 0.1 X 10^3 (0.0-1.0); MONOCYTES % (AUTO) 3 % (0-12); NEUTROPHILS # (AUTO) 1.5 X 10^3 (1.8-7.8); NEUTROPHILS % (AUTO) 40 % (42-75); PLATELET COUNT 161 10^3/uL (130-400); WHITE BLOOD COUNT 3.7 10^3/uL (4.3-11.0)
[2018-12-31 10:29] LABS: ALANINE AMINOTRANSFERASE 13 U/L (0-55); ALBUMIN 3.8 GM/DL (3.2-4.5); ALKALINE PHOSPHATASE 93 U/L (40-136); BILIRUBIN,TOTAL 0.4 MG/DL (0.1-1.0); BUN/CREATININE RATIO 17; CALCIUM 8.7 MG/DL (8.5-10.1); CARBON DIOXIDE 24 MMOL/L (21-32); CHLORIDE 104 MMOL/L (98-107); CREATININE SERUM 0.83 MG/DL (0.60-1.30); GFR ESTIMATED > 60; GLUCOSE 125 MG/DL (70-105); SODIUM 138 MMOL/L (135-145); TOTAL PROTEIN 5.8 GM/DL (6.4-8.2)
== END 2019-01-07 | disposition home or self-care (01) ==
LOC: ONC 09:44
PROVIDERS: ATTEND Internal Medicine Hematology & Oncology
DX: Z51.11 Encounter for antineoplastic chemotherapy (principal); C91.10 Chronic lymphocytic leukemia of B-cell type not having achieved remission; D64.9 Anemia, unspecified; E11.9 Type 2 diabetes mellitus without complications; I10 Essential (primary) hypertension; Z79.82 Long term (current) use of aspirin; Z79.4 Long term (current) use of insulin; Z79.899 Other long term (current) drug therapy; Z96.653 Presence of artificial knee joint, bilateral
CPT/HCPCS: 36415; 36591; 80048; 80053; 83615; 85025; 96372; 96375; 96413; 96415; 96417; 99213

== ENCOUNTER → 2019-02-21 | Outpatient (CLI) | payer MEDICARE, OTHER ==
[~2019-02-21] MED LIST changes: -ACETAMINOPHEN 500 MG TAB (TYLENOL) CANCER CTR PO PRN; +BARIUM SUSPENSION 2.1% (VANILLA SILQ) 450 ML PO ONE; +CATHETER FLUSH 10 ML SYR IV PRN; -CYCLOPHOSPHAMIDE IV SCH; -FLUDARABINE PHOSPHATE IV SCH; +HOLD METFORMIN - RECEIVED CONTRAST 20 ML VIAL IV SCH; +IOHEXOL 350 MG/ML 100 ML (OMNIPAQUE 350) VIAL IV ONE; +NS 100 ML (IVPB) BAG IV ONE; -NS IV 1000 ML (CANCER CTR) IV SCH; -NS IV 500 ML (CANCER CENTER) 500 ML ONE; -NS IV SCH; -ONDANSETRON MDV (CANCER CENTER 16 MG in NS (IVPB) CANCER CENTER 50 ML IV SCH; -ONDANSETRON MDV (CANCER CENTER 16 MG, DEXAMETHASONE INJECTION 10 MG in NS (IVPB) CANCER... IV SCH; -PALONOSETRON HCL 0.25 MG, DEXAMETHASONE INJECTION 10 MG in NS (IVPB) CANCER CENTER 50 ML IV SCH; -PEGFILGRASTIM 6 MG/0.6ML NEULASTA SC SCH; -[UNRECOGNIZED DRUG - OTHER] IV SCH; -diphenhydrAMINE 50 MG/ML INJ (CANCER CENTER) IV PRN; -methylPREDNISolone 125 MG/2 ML (SOLU-MEDROL) CANCER CTR IV SCH
--- NOTE | 2019-02-21 13:34 | Diagnostic Imaging Report ---
EXAMINATION: CT Neck and Chest with contrast. CT Abdomen and Pelvis with and without intravenous contrast. TECHNIQUE: Multiple contiguous axial images were obtained through the neck, chest, abdomen and pelvis after the uneventful administration of intravenous contrast. Pre-contrast images of the abdomen and pelvis were also obtained. All CT scans use one or more of the following dose optimizing techniques: automated exposure control, MA and/or KvP adjustment based on a patient size and exam type, or iterative reconstruction. HISTORY: Leukemia. COMPARISON: 11/28/2018. FINDINGS: Neck CT: There are numerous enlarged lymph nodes in the neck measuring between 10 and 15 mm in short axis. These are unchanged from prior exam. A right supraclavicular lymph node measures 14 mm, previously 14 mm. A left supraclavicular lymph node measures 17 mm, previously 16 mm. Abnormal lymph nodes are present in all stations throughout the neck. Overall, their size and distribution is unchanged. The muscles of the neck are normal. Vessels of the neck demonstrate normal course and caliber. Fascial planes are preserved and the deep spaces of the neck are normal. The visualized airway is widely patent. The base of the skull and the temporal bones are normal. Limited views of the brain including the cerebellum and brainstem are normal. The limited view of the [place] of [place] is unremarkable. The visualized portions of the orbits are normal. The spinal canal is normal in caliber. Intervertebral disk heights are normal. Neural foramina are normal. Chest CT: The lungs are clear without edema or pneumonia. No pleural effusion or pneumothorax. No suspicious nodules. Heart size is normal. No pericardial effusion. Aorta is normal in caliber. Enlarged axillary lymph nodes are unchanged from prior exam measuring up to 10 mm in short axis, previously 10 mm. Enlarged mediastinal lymph nodes are also unchanged with many of the nodes being calcified, likely in part from prior granulomatous infection. These are unchanged in size and distribution. Abdomen and Pelvis CT: The liver is normal without focal lesion. There is no biliary ductal dilation. Gallbladder is normal. Pancreas is normal. Spleen is normal. Adrenal glands are normal. The kidneys are normal. There is no hydronephrosis. Urinary bladder is normal. There are no dilated loops of large or small bowel. No obstruction or inflammation. No free fluid or air. There is stable retroperitoneal, iliac and inguinal lymphadenopathy. 17 mm short axis left inguinal lymph node is unchanged in size, previously measuring 16 mm. An 18 mm aortocaval lymph node is unchanged in size, previously measuring 18 mm. Aorta is normal in caliber without aneurysm. There are no suspicious osseous lesions. There are bilateral L5 pars defects with grade 1 anterolisthesis of L5 on S1. IMPRESSION: 1. Stable lymphadenopathy throughout the neck, chest, abdomen and pelvis. Dictated by: Dictated on workstation # [id number]
== END ==
LOC: RAD 10:47
PROVIDERS: ATTEND Nurse Practitioner Adult Health
DX: Z01.89 Encounter for other specified special examinations (principal); C91.10 Chronic lymphocytic leukemia of B-cell type not having achieved remission
CPT/HCPCS: 70491; 71260; 74178

== ENCOUNTER 2019-04-22 09:52 | Outpatient (RCR) | payer MEDICARE, OTHER ==
[2019-02-21 11:06] LABS: BASOPHILS % (AUTO) 0 % (0-10); EOSINOPHILS # (AUTO) 0.1 10^3/uL (0.0-0.3); EOSINOPHILS % (AUTO) 2 % (0-10); HEMATOCRIT 36 % (40-54); HEMOGLOBIN 12.7 G/DL (13.3-17.7); LYMPHOCYTES # (AUTO) 2.3 X 10^3 (1.0-4.0); LYMPHOCYTES % (AUTO) 49 % (12-44); MEAN CORPUSCULAR HEMOGLOBIN 31 PG (25-34); MEAN CORPUSCULAR HGB CONC 35 G/DL (32-36); MEAN CORPUSCULAR VOLUME 89 FL (80-99); MEAN PLATELET VOLUME 9.2 FL (7.4-10.4); MONOCYTES # (AUTO) 0.5 X 10^3 (0.0-1.0); MONOCYTES % (AUTO) 10 % (0-12); NEUTROPHILS # (AUTO) 1.8 X 10^3 (1.8-7.8); NEUTROPHILS % (AUTO) 39 % (42-75); PLATELET COUNT 173 10^3/uL (130-400); RED CELL DISTRIBUTION WIDTH 13.4 % (10.0-14.5); WHITE BLOOD COUNT 4.7 10^3/uL (4.3-11.0)
[2019-02-21 11:25] LABS: ALANINE AMINOTRANSFERASE 21 U/L (0-55); ALBUMIN 4.3 GM/DL (3.2-4.5); ALKALINE PHOSPHATASE 102 U/L (40-136); BILIRUBIN,TOTAL 0.6 MG/DL (0.1-1.0); BUN/CREATININE RATIO 20; CALCIUM 9.1 MG/DL (8.5-10.1); CARBON DIOXIDE 20 MMOL/L (21-32); CHLORIDE 104 MMOL/L (98-107); CREATININE SERUM 0.85 MG/DL (0.60-1.30); GFR ESTIMATED > 60; GLUCOSE 160 MG/DL (70-105); POTASSIUM 4.1 MMOL/L (3.6-5.0); SODIUM 138 MMOL/L (135-145); TOTAL PROTEIN 6.4 GM/DL (6.4-8.2)
[2019-02-25 10:40] LABS: BASOPHILS % (AUTO) 1 % (0-10); EOSINOPHILS # (AUTO) 0.1 10^3/uL (0.0-0.3); EOSINOPHILS % (AUTO) 4 % (0-10); HEMATOCRIT 35 % (40-54); HEMOGLOBIN 12.2 G/DL (13.3-17.7); LYMPHOCYTES # (AUTO) 1.7 X 10^3 (1.0-4.0); LYMPHOCYTES % (AUTO) 41 % (12-44); MEAN CORPUSCULAR HEMOGLOBIN 31 PG (25-34); MEAN CORPUSCULAR HGB CONC 35 G/DL (32-36); MEAN CORPUSCULAR VOLUME 90 FL (80-99); MEAN PLATELET VOLUME 9.2 FL (7.4-10.4); MONOCYTES # (AUTO) 0.3 X 10^3 (0.0-1.0); MONOCYTES % (AUTO) 8 % (0-12); NEUTROPHILS # (AUTO) 1.9 X 10^3 (1.8-7.8); NEUTROPHILS % (AUTO) 47 % (42-75); PLATELET COUNT 182 10^3/uL (130-400); RED CELL DISTRIBUTION WIDTH 13.5 % (10.0-14.5)
[2019-02-25 11:09] LABS: ALANINE AMINOTRANSFERASE 23 U/L (0-55); ALBUMIN 4.2 GM/DL (3.2-4.5); ALKALINE PHOSPHATASE 99 U/L (40-136); BILIRUBIN,TOTAL 0.5 MG/DL (0.1-1.0); BUN/CREATININE RATIO 16; CALCIUM 8.8 MG/DL (8.5-10.1); CARBON DIOXIDE 21 MMOL/L (21-32); CHLORIDE 104 MMOL/L (98-107); CREATININE SERUM 0.92 MG/DL (0.60-1.30); GFR ESTIMATED > 60; GLUCOSE 167 MG/DL (70-105); POTASSIUM 3.8 MMOL/L (3.6-5.0); SODIUM 137 MMOL/L (135-145); TOTAL PROTEIN 6.4 GM/DL (6.4-8.2)
[~2019-04-22 09:52] MED LIST changes: +ACETAMINOPHEN 500 MG TAB (TYLENOL) CANCER CTR PO PRN; -BARIUM SUSPENSION 2.1% (VANILLA SILQ) 450 ML PO ONE; -CATHETER FLUSH 10 ML SYR IV PRN; -GLIM4TAB PO; +GLIM4TAB5 PO; -HOLD METFORMIN - RECEIVED CONTRAST 20 ML VIAL IV SCH; -IOHEXOL 350 MG/ML 100 ML (OMNIPAQUE 350) VIAL IV ONE; +LISI1TAB25 PO; -LISI1TAB8 PO; -NS 100 ML (IVPB) BAG IV ONE; +NS IV 1000 ML (CANCER CTR) IV SCH; +NS IV SCH; -ONDA8TAB12 PO; +ONDA8TAB15 PO; +[UNRECOGNIZED DRUG - OTHER] IV SCH; +diphenhydrAMINE 50 MG/ML INJ (CANCER CENTER) IV PRN; +methylPREDNISolone 125 MG/2 ML (SOLU-MEDROL) CANCER CTR IV SCH
[2019-04-22 10:11] LABS: BASOPHILS % (AUTO) 1 % (0-10); EOSINOPHILS # (AUTO) 0.1 10^3/uL (0.0-0.3); EOSINOPHILS % (AUTO) 4 % (0-10); HEMATOCRIT 33 % (40-54); HEMOGLOBIN 11.4 G/DL (13.3-17.7); LYMPHOCYTES # (AUTO) 1.7 X 10^3 (1.0-4.0); LYMPHOCYTES % (AUTO) 41 % (12-44); MEAN CORPUSCULAR HEMOGLOBIN 32 PG (25-34); MEAN CORPUSCULAR HGB CONC 34 G/DL (32-36); MEAN CORPUSCULAR VOLUME 92 FL (80-99); MEAN PLATELET VOLUME 9.3 FL (7.4-10.4); MONOCYTES # (AUTO) 0.3 X 10^3 (0.0-1.0); MONOCYTES % (AUTO) 8 % (0-12); NEUTROPHILS # (AUTO) 1.9 X 10^3 (1.8-7.8); NEUTROPHILS % (AUTO) 47 % (42-75); PLATELET COUNT 189 10^3/uL (130-400); RED CELL DISTRIBUTION WIDTH 13.9 % (10.0-14.5)
[2019-04-22 10:30] LABS: ALANINE AMINOTRANSFERASE 22 U/L (0-55); ALBUMIN 4.1 GM/DL (3.2-4.5); ALKALINE PHOSPHATASE 97 U/L (40-136); BILIRUBIN,TOTAL 0.5 MG/DL (0.1-1.0); BUN/CREATININE RATIO 22; CALCIUM 8.8 MG/DL (8.5-10.1); CARBON DIOXIDE 26 MMOL/L (21-32); CHLORIDE 105 MMOL/L (98-107); CREATININE SERUM 0.83 MG/DL (0.60-1.30); GFR ESTIMATED > 60; GLUCOSE 109 MG/DL (70-105); SODIUM 138 MMOL/L (135-145); TOTAL PROTEIN 6.2 GM/DL (6.4-8.2)
[2019-05-20] MEDS ORDERED: LEVO500T80 PO (11:00)
[2019-05-21] MEDS ORDERED: AMOX-358 PO (12:01)
== END 2019-05-22 | disposition home or self-care (01) ==
LOC: ONC 09:52
PROVIDERS: ATTEND Internal Medicine Hematology & Oncology
DX: Z51.11 Encounter for antineoplastic chemotherapy (principal); C91.10 Chronic lymphocytic leukemia of B-cell type not having achieved remission; D64.9 Anemia, unspecified; E11.9 Type 2 diabetes mellitus without complications; I10 Essential (primary) hypertension; Z79.82 Long term (current) use of aspirin; Z79.4 Long term (current) use of insulin; Z79.899 Other long term (current) drug therapy; Z96.653 Presence of artificial knee joint, bilateral
CPT/HCPCS: 36591; 80053; 83615; 85025; 96375; 96376; 96413; 96415

== ENCOUNTER 2019-05-18 17:11 | Inpatient (IN) | payer MEDICARE, OTHER ==
[~2019-05-18] VITALS: Ht 180 cm; Wt 133.0 kg
[~2019-05-18 17:11] MED LIST changes: -ACETAMINOPHEN 500 MG TAB (TYLENOL) CANCER CTR PO PRN; -NS IV 1000 ML (CANCER CTR) IV SCH; -NS IV SCH; -[UNRECOGNIZED DRUG - OTHER] IV SCH; -diphenhydrAMINE 50 MG/ML INJ (CANCER CENTER) IV PRN; -methylPREDNISolone 125 MG/2 ML (SOLU-MEDROL) CANCER CTR IV SCH
--- NOTE | 2019-05-18 17:35 | ED Lower Extremity ---
General Chief Complaint: Lower Extremity Stated Complaint: L LEG SWELLING/OPEN WOUND ON TOE Nursing Triage Note: PT TO ED FROM [facility] FOR C/O POSS INFECTED TOE ON LT FOOT W/ SWELLING ET EDEMA TO LT LEG ONSET X6 DAYS AGO. DENIES INJURY. DOES REPORT WAS SEEN AT [facility] X4-5 DAYS AGO ET DENIES IMPROVEMENT. Nursing Sepsis Screen: No Definite Risk Source: patient Exam Limitations: no limitations History of Present Illness Date Seen by Provider: May 18, 2019 Time Seen by Provider: 17:32 Initial Comments To ER from [facility] urgent care. He was seen there on Monday and diagnosed with cellulitis left lower extremity put on Levaquin. He went back today for failure to improve. Denies fevers or chills but reports persistent redness of the leg but now involves an erythematous tender nodule to the medial left thigh. He was also noted today to have a pulse rate of moist wound to the plantar surface of the left great toe. He is a diabetic. He takes chemotherapy over 2 months (most recently [address] Porras) for CLL. Onset: other Severity: moderate Pain/Injury Location: left leg Modifying Factors: Worse With Movement Allergies and Home Medications Allergies Coded Allergies: No Known Drug Allergies (Unverified , 04/18/18) Home Medications Acyclovir 800 Mg Tablet, 800 MG PO BID, (Reported) Allopurinol 300 Mg Tablet, 300 MG PO DAILY, (Reported) Amlodipine Besylate 5 Mg Tablet, 5 MG PO DAILY, (Reported) Amoxicillin/Potassium Clav 1 Each Tablet, 1 EACH PO BID Prescribed by: NAIF TRAYLOR on 05/24/18 1039 Aspirin 81 Mg Tablet.dr, 81 MG PO DAILY, (Reported) Glimepiride 4 Mg Tablet, 4 MG PO BID, (Reported) Insulin Aspart 300 Units/3 Ml Solution, 15 UNITS SQ BID WITH MEALS, (Reported) Insulin Detemir 100 Unit/1 Ml Insuln.pen, 48 UNIT SQ BID, (Reported) Krill/Om-3/Dha/Epa/Phospho/Ast 1 Each Capsule, 1 CAP PO DAILY, (Reported) Lisinopril/Hydrochlorothiazide 1 Each Tablet, 1 TAB PO BID, (Reported) Lovastatin 20 Mg Tablet, 20 MG PO DAILY, (Reported) Metformin HCl 1,000 Mg Tablet, 1,000 MG PO BID, (Reported) Metoprolol Tartrate 50 Mg Tablet, 50 MG PO BID, (Reported) Ondansetron HCl 8 Mg Tablet, 8 MG PO TID PRN for NAUSEA/VOMITING-1ST LINE, (Reported) Patient Home Medication List Home Medication List Reviewed: Yes Review of Systems Constitutional: see HPI EENTM: see HPI Respiratory: no symptoms reported Cardiovascular: no symptoms reported Genitourinary: no symptoms reported Musculoskeletal: see HPI Skin: no symptoms reported Psychiatric/Neurological: No Symptoms Reported Past Bsuulmb-Ygkhea-Krlxnf Hx Patient Social History Alcohol Use: Denies Use Alcohol Beverage of Choice: Beer Recreational Drug Use: No Smoking Status: Never a Smoker 2nd Hand Smoke Exposure: No Recent Foreign Travel: No Contact w/Someone Who Travel: No Recent Infectious Disease Expo: No Recent Hopitalizations: No Physical Abuse: No Sexual Abuse: No Mistreated: No Fear: No Immunizations Up To Date Tetanus Booster (TDap): Unknown Seasonal Allergies Seasonal Allergies: No Past Medical History Surgeries: Yes (bilat total knee, lymph node removal) Tonsillectomy Respiratory: No Cardiac: Yes Hypertension Neurological: No Sexually Transmitted Disease: No HIV/AIDS: No Genitourinary: No Gastrointestinal: No Musculoskeletal: Yes (OSTEOARTHRITIS) Arthritis Endocrine: Yes Diabetes, Non-Insulin dep HEENT: Yes (BILAT CATARACTS REMOVED, BOTTOM FRONT 4 TEETH ARE LOOSE) Cataract Cancer: Yes Leukemia Did You Recieve Any Treatments: Yes What Type of Treatment Did You: Chemotherapy Psychosocial: No Integumentary: No Blood Disorders: No Family Medical History Dementia 19 MOTHER Diabetes mellitus G8 BROTHER G8 SISTER Hypertension G8 BROTHER Respiratory disorder 19 FATHER (lung cancer) Physical Exam Vital Signs Vital Signs - First Documented 05/18/19 17:15 Temp 37.0 Pulse 104 Resp 20 B/P (MAP) 163/81 (108) Pulse Ox 97 O2 Delivery Room Air Capillary Refill : Less Than 3 Seconds Height, Weight, BMI Height: 5'11.00" Weight: 290lbs. 0.0oz. [id number]; 41.00 BMI Method:Stated General Appearance: WD/WN, no apparent distress, obese HEENT: PERRL/EOMI, normal ENT inspection Cardiovascular: regular rate, rhythm Respiratory: lungs clear, normal breath sounds, no respiratory distress, no accessory muscle use Hips: bilateral hip non-tender, bilateral hip normal inspection, bilateral hip normal range of motion Legs: bilateral leg non-tender, bilateral leg normal inspection, bilateral leg normal range of motion Knees: bilateral knee non-tender, bilateral knee normal inspection, bilateral knee normal range of motion Ankles: bilateral ankle non-tender, bilateral ankle normal inspection, bilateral ankle normal range of motion Feet: bilateral foot non-tender; left foot other (2cm ulcer plantar surface left great toe. There is erythema that extends circumferentially around the left lower extremity up to the proximal aspect of the lower leg. He also has a tender palm sized area of induration that is erythematous to the medial left thigh) Neurologic/Psychiatric: alert, normal mood/affect, oriented x 3 Skin: normal color, warm/dry Progress/Results/Core Measures Results/Orders Lab Results Laboratory Tests Test 05/18/19 17:25 Range/Units White Blood Count 3.5 L 4.3-11.0 10^3/uL Red Blood Count 3.44 L 4.35-5.85 10^6/uL Hemoglobin 10.9 L 13.3-17.7 G/DL Hematocrit 32 L 40-54 % Mean Corpuscular Volume 93 80-99 FL Mean Corpuscular Hemoglobin 32 25-34 PG Mean Corpuscular Hemoglobin Concent 34 32-36 G/DL Red Cell Distribution Width 13.4 10.0-14.5 % Platelet Count 256 130-400 10^3/uL Mean Platelet Volume 9.6 7.4-10.4 FL Neutrophils (%) (Auto) 59 42-75 % Lymphocytes (%) (Auto) 32 12-44 % Monocytes (%) (Auto) 6 0-12 % Eosinophils (%) (Auto) 3 0-10 % Basophils (%) (Auto) 0 0-10 % Neutrophils # (Auto) 2.1 1.8-7.8 X 10^3 Lymphocytes # (Auto) 1.1 1.0-4.0 X 10^3 Monocytes # (Auto) 0.2 0.0-1.0 X 10^3 Eosinophils # (Auto) 0.1 0.0-0.3 10^3/uL Basophils # (Auto) 0.0 0.0-0.1 10^3/uL Neutrophils % (Manual) 56 % Lymphocytes % (Manual) 31 % Monocytes % (Manual) 7 % Eosinophils % (Manual) 3 % Band Neutrophils 3 % Hypersegmented Neutrophils MODERATE Erythrocyte Sedimentation Rate 71 H 0-30 MM/HR Prothrombin Time 13.1 12.2-14.7 SEC INR Comment 1.0 0.8-1.4 Sodium Level 140 135-145 MMOL/L Potassium Level 4.1 3.6-5.0 MMOL/L Chloride Level 104 98-107 MMOL/L Carbon Dioxide Level 25 21-32 MMOL/L Anion Gap 11 5-14 MMOL/L Blood Urea Nitrogen 17 7-18 MG/DL Creatinine 0.90 0.60-1.30 MG/DL Estimat Glomerular Filtration Rate > 60 BUN/Creatinine Ratio 19 Glucose Level 148 H 70-105 MG/DL Lactic Acid Level 1.51 0.50-2.00 MMOL/L Calcium Level 9.1 8.5-10.1 MG/DL Corrected Calcium 9.1 8.5-10.1 MG/DL Total Bilirubin 0.4 0.1-1.0 MG/DL Aspartate Amino Transf (AST/SGOT) 18 5-34 U/L Alanine Aminotransferase (ALT/SGPT) 16 0-55 U/L Alkaline Phosphatase 113 40-136 U/L Total Protein 6.7 6.4-8.2 GM/DL Albumin 4.0 3.2-4.5 GM/DL Smear Scan N My Orders Orders - JESUS BUCIO APRN Cbc With Automated Diff (05/18/19 17:26) Comprehensive Metabolic Panel (05/18/19 17:26) Erythrocyte Sedimentation Rate (05/18/19 17:26) Ed Iv/Invasive Line Start (05/18/19 17:26) Blood Culture (05/18/19 17:26) Lactic Acid Analyzer (05/18/19 17:26) Protime With Inr (05/18/19 17:26) Wound Culture (05/18/19 17:26) Foot, Left, 3 Views (05/18/19 17:26) Piperacillin Sodium/Tazobactam (Zosyn Vi (05/18/19 17:45) Vancomycin Injection (Vancomycin Injecti (05/18/19 17:45) Manual Differential (05/18/19 17:25) Vital Signs/I&O 05/18/19 17:15 Temp 37.0 Pulse 104 Resp 20 B/P (MAP) 163/81 (108) Pulse Ox 97 O2 Delivery Room Air Blood Pressure Mean: 108 Departure Communication (Admissions) Time/Spoke to Admitting Phy: 18:17 [address] Cuellar and Dr. Newman. 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 Referrals: [facility] (PCP) Primary Care Physician SHADIA BLAIR (Family) Primary Care Physician JESUS BUCIO APRN May 18, 2019 17:35
[2019-05-18 17:41] LABS: BASOPHILS % (AUTO) 0 % (0-10); EOSINOPHILS # (AUTO) 0.1 10^3/uL (0.0-0.3); EOSINOPHILS % (AUTO) 3 % (0-10); HEMATOCRIT 32 % (40-54); HEMOGLOBIN 10.9 G/DL (13.3-17.7); LYMPHOCYTES # (AUTO) 1.1 X 10^3 (1.0-4.0); LYMPHOCYTES % (AUTO) 32 % (12-44); MEAN CORPUSCULAR HEMOGLOBIN 32 PG (25-34); MEAN CORPUSCULAR HGB CONC 34 G/DL (32-36); MEAN CORPUSCULAR VOLUME 93 FL (80-99); MEAN PLATELET VOLUME 9.6 FL (7.4-10.4); MONOCYTES # (AUTO) 0.2 X 10^3 (0.0-1.0); MONOCYTES % (AUTO) 6 % (0-12); NEUTROPHILS # (AUTO) 2.1 X 10^3 (1.8-7.8); NEUTROPHILS % (AUTO) 59 % (42-75); PLATELET COUNT 256 10^3/uL (130-400); RED CELL DISTRIBUTION WIDTH 13.4 % (10.0-14.5); WHITE BLOOD COUNT 3.5 10^3/uL (4.3-11.0)
[2019-05-18] MEDS ORDERED: VANCOMYCIN INJECTION 2,000 MG in NS IV 500 ML 500 ML IV SCH (17:45)
[2019-05-18] MEDS ORDERED: PIPERACILLIN SODIUM/TAZOBACTAM 4.5 GM in NS (IVPB) 100 ML IV ONE (17:45)
[2019-05-18 17:48] LABS: SMEAR SCAN COMMENT N
[2019-05-18 17:57] LABS: PROTHROMBIN TIME PATIENT 13.1 SEC (12.2-14.7)
[2019-05-18 18:04] LABS: ALANINE AMINOTRANSFERASE 16 U/L (0-55); ALKALINE PHOSPHATASE 113 U/L (40-136); BILIRUBIN,TOTAL 0.4 MG/DL (0.1-1.0); BUN/CREATININE RATIO 19; CALCIUM 9.1 MG/DL (8.5-10.1); CARBON DIOXIDE 25 MMOL/L (21-32); CHLORIDE 104 MMOL/L (98-107); GFR ESTIMATED > 60; GLUCOSE 148 MG/DL (70-105); POTASSIUM 4.1 MMOL/L (3.6-5.0); SODIUM 140 MMOL/L (135-145); TOTAL PROTEIN 6.7 GM/DL (6.4-8.2)
[2019-05-18 18:06] LABS: BAND NEUTROPHILS 3 %; EOSINOPHILS % (MANUAL) 3 %; HYPERSEGMENTED NEUT MODERATE; LYMPHOCYTES % (MANUAL) 31 %; MONOCYTES % (MANUAL) 7 %; NEUTROPHILS % (MANUAL) 56 %
[2019-05-18 18:07] LABS: ERYTHROCYTE SEDIMENTATION RATE 71 MM/HR (0-30)
--- NOTE | 2019-05-18 18:11 | Diagnostic Imaging Report ---
INDICATION: Wound on the plantar surface of the left great toe for four days with no known injury. History of diabetes. FINDINGS: Three views of the left foot shows no fracture, dislocation or other acute bony abnormality. There are degenerative changes most pronounced at the metatarsophalangeal joint of the first digit with joint space narrowing and hypertrophic spurring. There is subchondral cyst involving the proximal phalanx which has a well-defined sclerotic border. No mottled erosions or periosteal thickening is seen to specifically suggest osteomyelitis. There are diffuse vascular calcifications present. IMPRESSION: There are degenerative changes at the metatarsophalangeal joint of the great toe with no acute abnormality evident. Dictated by: Dictated on workstation # [id number]
[2019-05-18] MEDS ORDERED: VANCOMYCIN 1000 MG/VIAL ONE (19:09)
[2019-05-18] MEDS ORDERED: NS IV 500 ML 500 ML ONE (19:10)
[2019-05-18 19:30] VITALS: BP 161/72
--- NOTE | 2019-05-18 19:30 | NUR ---
PT admitted to room 409-1, with an admitting diagnosis of Cellulitis of left lower extremety, on 05/18/19 from [facility], accompanied by staff and family. SORAYA VAZQUEZ introduced to surroundings, call light, bed controls, phone, TV, temperature control, lights, meal times, smoking policy, visitor policy, side rail policy, bathrooms and showers. Patient Rights given to patient in the handbook. SORAYA VAZQUEZ verbalizes understanding that [facility] is not responsible for the loss or damage to any personal effects or valuables that are kept in the patients posession during their hospitalization. Patient and family were informed about the Rapid Response Team and its purpose.
[2019-05-18 19:45] VITALS: BP 161/72
[2019-05-18] MEDS ORDERED: ONDANSETRON 4 MG/2 ML (SDV) Z0FRAN IV PRN (20:00)
[2019-05-18] MEDS ORDERED: ACETAMINOPHEN 325 MG TABLET PO PRN (20:00)
--- NOTE | 2019-05-18 20:35 | Consultation - Surgery ---
VALERIO BARON MEDICAL STUDENT 05/18/192034: History of Present Illness History of Present Illness Patient Consulted On(french/time) 05/18/19 20:32 Date Seen by Provider: May 18, 2019 Time Seen by Provider: 08:00 History of Present Illness CC: Left Leg Swelling and Open wound on sole of Hallux Twan Rowell is a 69 y/o male who presents to the ER from [facility]. He was seen there on Monday and diagnosed with cellulitis and wound of the left lower extremity. Pt was put on Levaquin. He went back today for failure to improve and was subsequently sent to the ER. Pt states the leg is has stayed edematous, red, and warm to the touch. Pt states the wound on his hallux has not gotten any better. Pt has diabetic neuropathy, so pain varies and is minimal at times. Pt states the pain comes and goes. Pain does not radiate anywhere. Pt has additional tender mass on left medial thigh. Pt denies fever, SOB, chest pain, headache, nausea, vomiting, diarrhea, chills Allergies and Home Medications Allergies Coded Allergies: No Known Drug Allergies (Unverified , 04/18/18) Home Medications Acyclovir 800 Mg Tablet, 800 MG PO BID, (Reported) Allopurinol 300 Mg Tablet, 300 MG PO DAILY, (Reported) Amlodipine Besylate 5 Mg Tablet, 5 MG PO DAILY, (Reported) Amoxicillin/Potassium Clav 1 Each Tablet, 1 EACH PO BID Prescribed by: NAIF TRAYLOR on 05/24/18 1039 Aspirin 81 Mg Tablet.dr, 81 MG PO DAILY, (Reported) Glimepiride 4 Mg Tablet, 4 MG PO BID, (Reported) Insulin Aspart 300 Units/3 Ml Solution, 15 UNITS SQ BID WITH MEALS, (Reported) Insulin Detemir 100 Unit/1 Ml Insuln.pen, 48 UNIT SQ BID, (Reported) Krill/Om-3/Dha/Epa/Phospho/Ast 1 Each Capsule, 1 CAP PO DAILY, (Reported) Lisinopril/Hydrochlorothiazide 1 Each Tablet, 1 TAB PO BID, (Reported) Lovastatin 20 Mg Tablet, 20 MG PO DAILY, (Reported) Metformin HCl 1,000 Mg Tablet, 1,000 MG PO BID, (Reported) Metoprolol Tartrate 50 Mg Tablet, 50 MG PO BID, (Reported) Ondansetron HCl 8 Mg Tablet, 8 MG PO TID PRN for NAUSEA/VOMITING-1ST LINE, (Reported) Past Nkzwpmy-Wnkmnh-Ayrgxn Hx Patient Social History Alcohol Use: Denies Use Recreational Drug Use: No Smoking Status: Never a Smoker 2nd Hand Smoke Exposure: No Recent Foreign Travel: No Contact w/Someone Who Travel: No Recent Infectious Disease Expo: No Recent Hopitalizations: No Immunizations Up To Date Tetanus Booster (TDap): Unknown Seasonal Allergies Seasonal Allergies: No Surgeries History of Surgeries: Yes (bilat total knee, lymph node removal) Surgeries: Tonsillectomy Respiratory History of Respiratory Disorde: No Cardiovascular History of Cardiac Disorders: Yes Cardiac Disorders: Hypertension Neurological History of Neurological Disord: No Reproductive System Sexually Transmitted Disease: No HIV/AIDS: No Genitourinary History of Genitourinary Disor: No Gastrointestinal History of Gastrointestinal Di: No Musculoskeletal History of Musculoskeletal Dis: Yes (OSTEOARTHRITIS) Musculoskeletal Disorders: Arthritis Endocrine History of Endocrine Disorders: Yes Endocrine Disorders: Diabetes, Non-Insulin dep HEENT History of HEENT Disorders: Yes (BILAT CATARACTS REMOVED, BOTTOM FRONT 4 TEETH ARE LOOSE) HEENT Disorders: Cataract Cancer History of Cancer: Yes Cancer: Leukemia Psychosocial History of Psychiatric Problem: No Integumentary History of Skin or Integumenta: No Blood Transfusions History of Blood Disorders: No Family Medical History Family Medial History: Dementia 19 MOTHER Diabetes mellitus G8 BROTHER G8 SISTER Hypertension G8 BROTHER Respiratory disorder 19 FATHER (lung cancer) Review of Systems-General Constitutional: No chills, No diaphoresis, No dizziness, No fever EENTM: No hearing loss, No ear pain Respiratory: No see HPI, No cough Cardiovascular: No edema, No palpitations Gastrointestinal: No abdominal pain, No constipation, No diarrhea Genitourinary: No dysuria, No frequency Musculoskeletal: No gout, No joint pain Skin: lumps (enlarged mas in left thigh) Psychiatric/Neurological: Denies Anxiety, Denies Depressed; Other (Diabetic Neuropathy) Physical Exam-General Problems Physical Exam Vital Signs Vital Signs - First Documented 05/18/19 17:15 Temp 37.0 Pulse 104 Resp 20 B/P (MAP) 163/81 (108) Pulse Ox 97 O2 Delivery Room Air Capillary Refill : Less Than 3 Seconds General Appearance: no apparent distress HEENT: PERRL/EOMI, normal ENT inspection, TMs normal Neck: non-tender, full range of motion Respiratory: chest non-tender, lungs clear, normal breath sounds Cardiovascular: regular rate, rhythm, no edema, no gallop Gastrointestinal: normal bowel sounds, non tender, soft Back: normal inspection, no CVA tenderness Extremities: normal range of motion, calf tenderness, inflammation, swelling, other (1. ulcer on left hallux base; minimal necrotic tissue 2. Mass on left thigh) Neurologic/Psychiatric: no motor/sensory deficits, alert, oriented x 3 Skin: No normal color; other (left leg is eedematous, red, warm to touch) Lymphatic: no adenopathy Data Review Labs Laboratory Tests 05/18/19 17:25: White Blood Count 3.5L, Red Blood Count 3.44L, Hemoglobin 10.9L, Hematocrit 32L, Mean Corpuscular Volume 93, Mean Corpuscular Hemoglobin 32, Mean Corpuscular Hemoglobin Concent 34, Red Cell Distribution Width 13.4, Platelet Count 256, Mean Platelet Volume 9.6, Neutrophils (%) (Auto) 59, Lymphocytes (%) (Auto) 32, Monocytes (%) (Auto) 6, Eosinophils (%) (Auto) 3, Basophils (%) (Auto) 0, Neutrophils # (Auto) 2.1, Lymphocytes # (Auto) 1.1, Monocytes # (Auto) 0.2, Eosinophils # (Auto) 0.1, Basophils # (Auto) 0.0, Neutrophils % (Manual) 56, Lymphocytes % (Manual) 31, Monocytes % (Manual) 7, Eosinophils % (Manual) 3, Band Neutrophils 3, Hypersegmented Neutrophils MODERATE, Erythrocyte Sedimentation Rate 71H, Prothrombin Time 13.1, INR Comment 1.0, Sodium Level 140, Potassium Level 4.1, Chloride Level 104, Carbon Dioxide Level 25, Anion Gap 11, Blood Urea Nitrogen 17, Creatinine 0.90, Estimat Glomerular Filtration Rate > 60, BUN/Creatinine Ratio 19, Glucose Level 148H, Lactic Acid Level 1.51, Calcium Level 9.1, Corrected Calcium 9.1, Total Bilirubin 0.4, Aspartate Amino Transf (AST/SGOT) 18, Alanine Aminotransferase (ALT/SGPT) 16, Alkaline Phosphatase 113, Total Protein 6.7, Albumin 4.0, Smear Scan N Assessment/Plan Assessment/Plan Assessment/Plan Cellulitis of left Lower Extremity Left Great Toe Wound Mass- Left Thigh Ultrasound Continue abx Watch growth of mass HARINDER WYNN DO 05/19/19 1505: History of Present Illness History of Present Illness Time Seen by Provider: 20:00 History of Present Illness Patient is a 69 year old male with cellulitis to left lower extermity. He states he has had it for about [address] on antibiotics but did not improve and he was sent to Emergency dep. Patient states has a wound to left great toe plantar aspect. Has poor sensation to left lower extremity. Pain variable. Leg pain comes and goes. Has a knot on hte medial thigh. Notes history of CLL. THe left lower leg is red and warm to touch. Denies n/v fever sweats chills shortness of breath or chest pain. Allergies and Home Medications Allergies Coded Allergies: No Known Drug Allergies (Unverified , 04/18/18) Home Medications Acyclovir 800 Mg Tablet, 800 MG PO BID, (Reported) Allopurinol 300 Mg Tablet, 300 MG PO DAILY, (Reported) Amlodipine Besylate 5 Mg Tablet, 5 MG PO DAILY, (Reported) Amoxicillin/Potassium Clav 1 Each Tablet, 1 EACH PO BID Prescribed by: NAIF TRAYLOR on 05/24/18 1039 Aspirin 81 Mg Tablet.dr, 81 MG PO DAILY, (Reported) Glimepiride 4 Mg Tablet, 4 MG PO BID, (Reported) Insulin Aspart 300 Units/3 Ml Solution, 15 UNITS SQ BID WITH MEALS, (Reported) Insulin Detemir 100 Unit/1 Ml Insuln.pen, 48 UNIT SQ BID, (Reported) Krill/Om-3/Dha/Epa/Phospho/Ast 1 Each Capsule, 1 CAP PO DAILY, (Reported) Lisinopril/Hydrochlorothiazide 1 Each Tablet, 1 TAB PO BID, (Reported) Lovastatin 20 Mg Tablet, 20 MG PO DAILY, (Reported) Metformin HCl 1,000 Mg Tablet, 1,000 MG PO BID, (Reported) Metoprolol Tartrate 50 Mg Tablet, 50 MG PO BID, (Reported) Ondansetron HCl 8 Mg Tablet, 8 MG PO TID PRN for NAUSEA/VOMITING-1ST LINE, (Reported) Patient Home Medication List Home Medication List Reviewed: Yes Past Ppxyhrm-Hhwelh-Yjesux Hx Reviewed Nursing Assessment Reviewed/Agree w Nursing PMH: Yes Family Medical History Significant Family History: No Pertinent Family Hx Family Medial History: Dementia 19 MOTHER Diabetes mellitus G8 BROTHER G8 SISTER Hypertension G8 BROTHER Respiratory disorder 19 FATHER (lung cancer) Review of Systems-General Constitutional: No chills, No diaphoresis, No dizziness, No fever EENTM: No hearing loss, No ear pain Respiratory: No cough Cardiovascular: No edema, No palpitations Gastrointestinal: No abdominal pain, No constipation, No diarrhea Genitourinary: No dysuria, No frequency Musculoskeletal: No gout, No joint pain Skin: lumps (enlarged mas in left thigh), other (erythema left lower extremity, from knee down) Psychiatric/Neurological: Denies Anxiety, Denies Depressed; Other (Diabetic Neuropathy) Physical Exam-General Problems Physical Exam HEENT: PERRL/EOMI, normal ENT inspection, TMs normal Neck: non-tender, full range of motion Respiratory: chest non-tender, lungs clear, normal breath sounds Cardiovascular: regular rate, rhythm, no edema, no gallop Gastrointestinal: normal bowel sounds, non tender, soft Rectal: deferred Back: normal inspection, no CVA tenderness Extremities: inflammation, swelling, other (ulcer on left hallux base; minimal eschar tissue , Mass on left thigh) Neurologic/Psychiatric: alert, normal mood/affect, oriented x 3, other (decreased sensation left lower ext) Skin: warm/dry, other (left leg is edematous, red, warm to touch) Lymphatic: no adenopathy Assessment/Plan Assessment/Plan Assessment/Plan Cellulitis of left Lower Extremity Left Great Toe Wound Mass- Left Thigh will get u/s but not available till monday continue abx no surgical intervention at this time but may need debridement in future Supervisory-Addendum Brief Verification & Attestation Participated in pt care: history, MDM, physical Personally performed: exam, history, MDM, supervision of care Care discussed with: Medical Student Procedures: n/a Results interpretation: Verified all documentation Verification and Attestation of Medical Student E/M Service A medical student performed and documented this service in my presence. I reviewed and verified all information documented by the medical student and made modifications to such information, when appropriate. I personally performed the physical exam and medical decision making. Harinder Wynn, May 18, 2019, 20:53 VALERIO BARON MEDICAL STUDENT May 18, 2019 20:35 HARINDER WYNN DO May 19, 2019 15:05
[2019-05-18] MEDS ORDERED: NS (IVPB) 100 ML ONE (21:31)
[2019-05-18] MEDS ORDERED: PIPERACILLIN/TAZO 4.5 GM VIAL (ZOSYN) IV ONE (21:31)
[2019-05-18] MEDS: NS IV 1000 ML 1,000 ML IV SCH (21:42)
[2019-05-18] MEDS: ENOXAPARIN 40 MG/0.4 ML (LOVENOX) SYR SC SCH (21:44)
[2019-05-18] MEDS: NovoLOG/HumaLOG RANGE B SC SCH (23:05)
[2019-05-18] MEDS: PIPERACILLIN/TAZO 4.5 GM/NS 100 ML IV SCH ×2 (23:07)
[2019-05-19 00:14] VITALS: BP 145/70
[2019-05-19 04:00] VITALS: BP 147/66
[2019-05-19] MEDS ORDERED: PIPERACILLIN/TAZO 4.5 GM VIAL (ZOSYN) IV ONE (04:24)
[2019-05-19] MEDS ORDERED: NS (IVPB) 100 ML ONE (04:25)
[2019-05-19] MEDS: NS IV 1000 ML 1,000 ML IV SCH ×2 (04:52→10:45)
[2019-05-19] MEDS: PIPERACILLIN/TAZO 4.5 GM/NS 100 ML IV SCH ×6 (04:53→22:06)
[2019-05-19 05:00] LABS: BASOPHILS % (AUTO) 0 % (0-10); EOSINOPHILS # (AUTO) 0.1 10^3/uL (0.0-0.3); EOSINOPHILS % (AUTO) 4 % (0-10); HEMATOCRIT 29 % (40-54); HEMOGLOBIN 9.5 G/DL (13.3-17.7); LYMPHOCYTES # (AUTO) 0.8 X 10^3 (1.0-4.0); LYMPHOCYTES % (AUTO) 28 % (12-44); MEAN CORPUSCULAR HEMOGLOBIN 31 PG (25-34); MEAN CORPUSCULAR HGB CONC 33 G/DL (32-36); MEAN CORPUSCULAR VOLUME 94 FL (80-99); MEAN PLATELET VOLUME 9.5 FL (7.4-10.4); MONOCYTES # (AUTO) 0.2 X 10^3 (0.0-1.0); MONOCYTES % (AUTO) 6 % (0-12); NEUTROPHILS # (AUTO) 1.7 X 10^3 (1.8-7.8); NEUTROPHILS % (AUTO) 62 % (42-75); PLATELET COUNT 221 10^3/uL (130-400); RED CELL DISTRIBUTION WIDTH 13.3 % (10.0-14.5); WHITE BLOOD COUNT 2.7 10^3/uL (4.3-11.0)
[2019-05-19 05:27] LABS: ALANINE AMINOTRANSFERASE 14 U/L (0-55); ALBUMIN 3.4 GM/DL (3.2-4.5); ALKALINE PHOSPHATASE 89 U/L (40-136); BILIRUBIN,TOTAL 0.5 MG/DL (0.1-1.0); BUN/CREATININE RATIO 16; CALCIUM 8.4 MG/DL (8.5-10.1); CARBON DIOXIDE 21 MMOL/L (21-32); CHLORIDE 105 MMOL/L (98-107); CREATININE SERUM 0.79 MG/DL (0.60-1.30); GFR ESTIMATED > 60; GLUCOSE 130 MG/DL (70-105); POTASSIUM 3.8 MMOL/L (3.6-5.0); SODIUM 136 MMOL/L (135-145); TOTAL PROTEIN 5.6 GM/DL (6.4-8.2)
[2019-05-19] MEDS: NovoLOG/HumaLOG RANGE B SC SCH ×4 (05:58→22:06)
[2019-05-19] MEDS: ENOXAPARIN 40 MG/0.4 ML (LOVENOX) SYR SC SCH ×2 (07:58→22:04)
[2019-05-19] MEDS: VANCOMYCIN 1,750 MG/NS 500 ML IVPB IV SCH ×4 (07:59→19:13)
[2019-05-19 08:00] VITALS: BP 157/73
--- NOTE | 2019-05-19 08:25 | Progress Note - Surgery ---
VALERIO BARON MEDICAL STUDENT 05/19/19 0825: Subjective Date Seen by a Provider: May 19, 2019 Time Seen by a Provider: 07:30 Subjective/Events-last exam Patient is alert and in no acute distress. No family at bedside. Patient is tolerating current diet Pt is able to ambulate and go to restroom as needed Pt states the swelling and redness in his left leg seems to have gone down. Ulcer seems to be improving, decreased erythema, well granulated tissue present. Pt states the mass on his thigh seems to be smaller and less tender Denies: fever, chest pain, SOB, chills, nausea, vomiting, diarrhea, abdominal pain Review of Systems General: No Chills HEENT: No Head Aches, No Eye Pain Pulmonary: No Dyspnea, No Cough Cardiovascular: No: Chest Pain, Palpitations Gastrointestinal: No: Nausea, Vomiting, Abdominal Pain Genitourinary: No Dysuria Musculoskeletal: leg pain (minimal tenderness), foot pain (minimal); No: neck pain, shoulder pain Neurological: No: Weakness Focused Exam Lactate Level 05/18/19 17:25: Lactic Acid Level 1.51 Objective Exam Vital Signs Date Time Temp Pulse Resp B/P (MAP) Pulse Ox O2 Delivery O2 Flow Rate FiO2 05/19/19 08:00 36.4 89 18 157/73 (101) 97 Room Air 05/19/19 04:00 36.6 84 18 147/66 (93) 97 Room Air 05/19/19 00:14 36.7 99 20 145/70 (95) 98 Room Air 05/18/19 19:45 36.9 100 20 161/72 (101) 98 Room Air 05/18/19 19:45 Room Air 05/18/19 19:30 36.9 100 20 161/72 98 Room Air 05/18/19 19:23 37.4 100 20 155/78 (108) 97 Room Air 05/18/19 17:15 37.0 104 20 163/81 (108) 97 Room Air I & O 05/19/19 07:00 Intake Total 1140 ml Balance 1140 ml Capillary Refill : Less Than 3 Seconds General Appearance: No Apparent Distress HEENT: PERRL/EOMI, TMs Normal Neck: Full Range of Motion, Normal Inspection, Supple Respiratory: Chest Non Tender, Lungs Clear, Normal Breath Sounds Cardiovascular: Regular Rate, Rhythm, No Edema, No Murmur Gastrointestinal: normal bowel sounds, non tender, soft Extremity: No Non Tender; Calf Tenderness, Inflammation, Swelling Neurologic/Psychiatric: Alert, No Motor/Sensory Deficits, Normal Mood/Affect Skin: No Normal Color; Erythema, Other (mass on left thigh) Lymphatic: No No Adenopathy Results Lab Laboratory Tests 05/18/19 17:25: White Blood Count 3.5L, Red Blood Count 3.44L, Hemoglobin 10.9L, Hematocrit 32L, Mean Corpuscular Volume 93, Mean Corpuscular Hemoglobin 32, Mean Corpuscular Hemoglobin Concent 34, Red Cell Distribution Width 13.4, Platelet Count 256, Mean Platelet Volume 9.6, Neutrophils (%) (Auto) 59, Lymphocytes (%) (Auto) 32, Monocytes (%) (Auto) 6, Eosinophils (%) (Auto) 3, Basophils (%) (Auto) 0, Neutrophils # (Auto) 2.1, Lymphocytes # (Auto) 1.1, Monocytes # (Auto) 0.2, Eosinophils # (Auto) 0.1, Basophils # (Auto) 0.0, Neutrophils % (Manual) 56, Lymphocytes % (Manual) 31, Monocytes % (Manual) 7, Eosinophils % (Manual) 3, Band Neutrophils 3, Hypersegmented Neutrophils MODERATE, Erythrocyte Sedimentation Rate 71H, Prothrombin Time 13.1, INR Comment 1.0, Sodium Level 140, Potassium Level 4.1, Chloride Level 104, Carbon Dioxide Level 25, Anion Gap 11, Blood Urea Nitrogen 17, Creatinine 0.90, Estimat Glomerular Filtration Rate > 60, BUN/Creatinine Ratio 19, Glucose Level 148H, Lactic Acid Level 1.51, Calcium Level 9.1, Corrected Calcium 9.1, Total Bilirubin 0.4, Aspartate Amino Transf (AST/SGOT) 18, Alanine Aminotransferase (ALT/SGPT) 16, Alkaline Phosphatase 113, Total Protein 6.7, Albumin 4.0, Smear Scan N 05/18/19 23:02: Glucometer 114H 05/19/19 04:32: White Blood Count 2.7L, Red Blood Count 3.06L, Hemoglobin 9.5L, Hematocrit 29L, Mean Corpuscular Volume 94, Mean Corpuscular Hemoglobin 31, Mean Corpuscular Hemoglobin Concent 33, Red Cell Distribution Width 13.3, Platelet Count 221, Mean Platelet Volume 9.5, Neutrophils (%) (Auto) 62, Lymphocytes (%) (Auto) 28, Monocytes (%) (Auto) 6, Eosinophils (%) (Auto) 4, Basophils (%) (Auto) 0, Neutrophils # (Auto) 1.7L, Lymphocytes # (Auto) 0.8L, Monocytes # (Auto) 0.2, Eosinophils # (Auto) 0.1, Basophils # (Auto) 0.0, Sodium Level 136, Potassium Level 3.8, Chloride Level 105, Carbon Dioxide Level 21, Anion Gap 10, Blood Urea Nitrogen 13, Creatinine 0.79, Estimat Glomerular Filtration Rate > 60, BUN/Creatinine Ratio 16, Glucose Level 130H, Calcium Level 8.4L, Corrected Calcium 8.9, Total Bilirubin 0.5, Aspartate Amino Transf (AST/SGOT) 15, Alanine Aminotransferase (ALT/SGPT) 14, Alkaline Phosphatase 89, Total Protein 5.6L, Al bumin 3.4 05/19/19 05:27: Glucometer 151H Assessment/Plan Assessment/Plan Assessment/Plan Cellulitis of left Lower Extremity Left Great Toe Wound Mass- Left Thigh Ultrasound Continue abx Watch growth of mass on thigh Consider wound care and debridement Clinical Quality Measures DVT/VTE Risk/Contraindication: Risk Factor Score Per Nursin RFS Level Per Nursing on Admit: 4+=Very High HARINDER NEWMAN DO 05/19/19 1601: Subjective Subjective/Events-last exam Patient doing well. Erythema decreasing on left lower extremity. Not having as much discomfort on left thigh mass. Denies n/v fever sweats chills shortness of breath or chest pain. Objective Exam General Appearance: No Apparent Distress HEENT: PERRL/EOMI, TMs Normal Neck: Full Range of Motion, Normal Inspection Respiratory: Chest Non Tender, No Accessory Muscle Use, No Respiratory Distress Cardiovascular: Regular Rate, Rhythm Gastrointestinal: non tender, soft, no organomegaly Extremity: Swelling (erythema left lower extremity, less left great toe with ulceration plantar aspect. small eschar), Other (mass medial thigh) Neurologic/Psychiatric: Alert, Oriented x3, Sensory Deficit (left lower ext remity) Skin: No Normal Color; Erythema (less), Other Lymphatic: No No Adenopathy Assessment/Plan Assessment/Plan Assessment/Plan Cellulitis of left Lower Extremity Left Great Toe Wound Mass- Left Thigh improving overall continue abx no surgical intervention at this time will follow u/s tomorrow Supervisory-Addendum Brief Verification & Attestation Participated in pt care: history, MDM, physical Personally performed: exam, history, MDM, supervision of care Care discussed with: Medical Student Procedures: n/a Results interpretation: Verified all documentation Verification and Attestation of Medical Student E/M Service A medical student performed and documented this service in my presence. I reviewed and verified all information documented by the medical student and made modifications to such information, when appropriate. I personally performed the physical exam and medical decision making. Harinder Newman, May 19, 2019,16:01 VALERIO BARON MEDICAL STUDENT May 19, 2019 08:25 HARINDER NEWMAN DO May 19, 2019 16:01
[2019-05-19] MEDS: meTOprolol TARTRATE 50 MG (LOPRESSOR) TAB PO SCH ×2 (10:47→22:05)
[2019-05-19] MEDS: HYDROCHLOROTHIAZIDE 12.5 MG (HCTZ) CAP PO SCH ×2 (10:47→22:05)
[2019-05-19] MEDS: amLODIPine 5 MG (NORVASC) TAB PO SCH (10:48)
[2019-05-19] MEDS: lisINopril 20 MG (PRINIVIL) TABLET PO SCH ×2 (10:48→22:05)
[2019-05-19 12:00] VITALS: BP 159/74
--- NOTE | 2019-05-19 13:40 | History & Physical-Hospitalist ---
History of Present Illness HPI/Chief Complaint Patient presents with complaints of left leg pain erythema and fevers. He had been seen by Valente Byrne at [facility] with complaints of pain in his left medial thigh. It appears that he has either a superficial thrombophlebitis or lymphadenitis from an infected left great toe diabetic ulcer. Source: patient Exam Limitations: no limitations Date Seen 05/19/19 Time Seen by a Provider: 12:40 Attending Physician Vera Cuellar MD [facility] [place] Referring Physician Date of Admission May 18, 2019 at 17:42 Home Medications & Allergies Home Medications Reviewed patient Home Medication Reconciliation performed by pharmacy medication reconciliations preparatory technician and/or nursing. Patients Allergies have been reviewed. Allergies Allergies Coded Allergies No Known Drug Allergies (Unverified04/18/18) Past [id number]-[id number] Hx Past Med/Social Hx: Reviewed Nursing Past Med/Soc Hx Patient Social History Marrital Status: single Employed/Student: retired Alcohol Use: Denies Use Alcohol Beverage of Choice: Beer Recreational Drug Use: No Smoking Status: Never a Smoker 2nd Hand Smoke Exposure: No Recent Foreign Travel: No Contact w/other who traveled: No Recent Hopitalizations: No Recent Infectious Disease Expo: No Immunizations Up To Date Tetanus Booster (TDap): Unknown Date of Pneumonia Vaccine: Jan 17, 2019 Date of Influenza Vaccine: Jan 17, 2019 Seasonal Allergies Seasonal Allergies: No Past Medical History Surgeries: Orthopedic, Tonsillectomy Cardiac: Hypertension Sexually Transmitted Disease: No HIV/AIDS: No Musculoskeletal: Arthritis Endocrine: Diabetes, Non-Insulin dep HEENT: Cataract Cancer: Leukemia Did You Recieve Any Treatments: Yes What Type of Treatment Did You: Chemotherapy History of Blood Disorders: No Family History Dementia 19 MOTHER Diabetes mellitus G8 BROTHER G8 SISTER Hypertension G8 BROTHER Respiratory disorder 19 FATHER (lung cancer) Review of Systems Constitutional: see HPI EENTM: no symptoms reported Respiratory: no symptoms reported Cardiovascular: no symptoms reported Gastrointestinal: no symptoms reported Skin: change in color Psychiatric/Neurological: No Symptoms Reported Physical Exam Physical Exam Vital Signs Vital Signs - First Documented 05/18/19 17:15 Temp 37.0 Pulse 104 Resp 20 B/P (MAP) 163/81 (108) Pulse Ox 97 O2 Delivery Room Air Capillary Refill : Less Than 3 SecondsLess Than 3 Seconds Height, Weight, BMI Height: 5'11.00" Weight: 290lbs. 0.0oz. [id number]; 41.04 BMI Method:Stated General Appearance: No Apparent Distress, WD/WN HEENT: Normal ENT Inspection Neck: Limited Range of Motion Respiratory: Chest Non Tender, Lungs Clear, Normal Breath Sounds, No Accessory Muscle Use, No Respiratory Distress Cardiovascular: Regular Rate, Rhythm, No Gallop, No Murmur, Other (Decreased peripheral pulses) Gastrointestinal: Normal Bowel Sounds, Non Tender, Soft Back: Normal Inspection Extremity: Calf Tenderness, Inflammation (Medial left thigh), Pedal Edema, Swelling Neurologic/Psychiatric: Alert, Oriented x3, Normal Mood/Affect Skin: Erythema Results Results/Procedures Labs Laboratory Tests 05/18/19 17:25 05/19/19 04:32 Patient resulted labs reviewed. 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
[2019-05-19 16:58] VITALS: BP 144/71
[2019-05-19] MEDS ORDERED: NON-FORMULARY MEDICATION 1 EA EA (Insulin Aspart (Novolog Flexpen) 15 UNITS) SQ SCH (17:00)
[2019-05-19] MEDS: GLIMEPIRIDE 4 MG (AMARYL) TAB PO SCH (17:16)
[2019-05-19] MEDS: inSUlin ASPART (NovoLOG) 1 UNIT/0.01 ML (CHARGE PER UNIT) SC SCH (17:18)
[2019-05-19 20:28] VITALS: BP 185/84
--- OUTSIDE RECORDS SUMMARY | 2019-05-19 20:56 | XMS REPORT ---
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 E11.59 Active 225127584 Problem Diabetes type 2, controlled E11.9 Ac tive 22926603 Problem Type 2 diabetes mellitus with hyperglycemia E11.65 Active 101233601 Problem Other elevated white blood cell (WBC) count D72.82 8 Active 736546149 Problem prison (current) use of insulin Z79.4 Active 984219590 Problem prison current use of insulin Z79.4 Active 762955243 Problem Controlled type 2 diabetes m ellitus without complication, without long- term current use of insulin E11.9 Active 563578229 Problem Type 2 diabetes mellitus without complications E11 .9 Active 558781597 Problem Other chronic pain G89.29 Active 8 [id number] ALLERGIES No Known Allergies ENCOUNTERS Encounter Location Date Diagnosis [place] [address] [address] Dec, Type 2 diabetes mellitus without complic ations E11.9 ; Encounter for immunization Z23 and 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 insulin Z79.4 [place] [address] [address] Oct, [place] [address] [address] July, [place] [address] [address] May, Type 2 diabetes mellitus with other circ ulatory complications E11.59 and Viral bronchitis J20.8 [place] [address] [address] May, Diabetes type 2, controlled E11.9 [place] [address] [address] May, [place] [address] [address] May, Type 2 diabetes mellitus with other circ ulatory complications E11.59 and Viral bronchitis J20.8 [place] [address] [address] Apr, [place] [address] [address] Feb, Type 2 diabetes mellitus with hyperglyce toshia E11.65 [place] [address] [address] Jan, Type 2 diabetes mellitus with other circ ulatory complications E11.59 [place] [address] [address] Nov, [place] [address] [address] Oct, Other elevated white blood cell (WBC) co unt D72.828 and Type 2 diabetes mellitus with other circulatory complications E11.59 [place] [address] [place] [id number] [place] [address] Sep, [place] [address] [address] Sep, Diabetes type 2, controlled E11.9 [place] [address] [place] [id number] [place] [address] Aug, Type 2 diabetes mellitus with hyperglyce toshia E11.65 [place] [address] [address] July, [place] [address] [address] Jun, Diabetes type 2, controlled E11.9 ; Othe r chronic pain G89.29 ; Pain in left knee M25.562 and Pain in right knee M25.561 [place] [address] [address] May, [place] [address] [address] Feb, Other viral agents as the cause of disea ses classified elsewhere B97.89 and Acute upper respiratory infection, unspecified J06.9 [place] [address] [address] Feb, [place] [address] [address] Feb, Type 2 diabetes mellitus without complic ations E11.9 and 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 insulin Z79.4 [place] [address] [address] Dec, [place] [address] [address] Dec, [place] [address] [address] Nov, Type 2 diabetes mellitus without complic ations E11.9 and prison current use of insulin Z79.4 [place] [address] [address] Nov, [place] [address] [address] Nov, Controlled type 2 diabetes mellitus with out complication, without long-term current use of insulin E11.9 [place] [address] [address] Nov, Controlled type 2 diabetes mellitus with out complication, without long-term current use of insulin E11.9 [place] [address] [address] Nov, Type 2 diabetes mellitus with other circ ulatory complications E11.59 [place] [address] [address] Oct, Type 2 diabetes mellitus with hyperglyce toshia E11.65 [facility] [address] [place] [id number] [place] [address] Oct, [facility] [address] [place] [id number] [place] [address] Oct, [facility] [address] [place] [id number] [place] [address] Oct, Type 2 diabetes mellitus without complic ations E11.9 [facility] [address] [place] [id number] [place] [address] Sep, Type 2 diabetes mellitus with hyperglyce toshia E11.65 [facility] [address] [address] Sep, Type 2 diabetes mellitus with other circ ulatory complications E11.59 [facility] [address] [place] [id number] [place] [address] Aug, [facility] [address] [address] July, Controlled type 2 diabetes mellitus with out complication, without long-term current use of insulin E11.9 [facility] [address] [place] [address] [address] [place] [address] May, [facility] [address] [address] Feb, Controlled type 2 diabetes mellitus with out complication, without long-term current use of insulin E11.9 [facility] [address] [place] [id number] [place] [address] Jan, Controlled type 2 diabetes mellitus with out complication, without long-term current use of insulin E11.9 [facility] [address] [place] [address] [address] [place] [address] Jan, Type 2 diabetes mellitus with hyperglyce toshia E11.65 and prison current use of insulin Z79.4 [facility] [address] [place] [id number] [place] [address] Nov, Diabetes type 2, controlled E11.9 [facility] [address] [address] 17 Aug, 2015 Type 2 diabetes mellitus with other circ ulatory complications E11.59 and Hypertension, essential I10 [facility] [address] [address] July, Type 2 diabetes mellitus with hyperglyce toshia E11.65 and Hypertension, benign I10 [facility] [address] [address] May, Type 2 diabetes mellitus with other circ ulatory complications E11.59 [facility] [address] [address] Apr, Diabetes type 2, controlled E11.9 [place] [address] [address] Jan, Type 2 diabetes mellitus with other circ ulatory complications E11.59 [place] [address] [address] Dec, Type 2 diabetes mellitus with other circ ulatory complications E11.59 [facility] [address] [address] Aug, Diabetes 250.00 [place] [address] [address] July, Diabetes 250.00 [facility] [address] [address] Jun, [facility] [address] [address] 30 Jun, 2014 [facility] [address] [address] Jun, [facility] [address] [address] 14 Jun, 2014 [facility] [address] [address] Jun, [facility] [address] [address] May, [facility] [address] [id number] [place] [address] May, [facility] [address] [id number] [place] [address] Apr, [facility] [address] [id number] [place] [address] Apr, [facility] [address] [id number] [place] [address] Mar, [facility] [address] [id number] [place] [address] Mar, [facility] [address] [id number] [place] [address] Feb, [facility] [address] [id number] [place] [address] Feb, [facility] [address] [id number] [place] [address] Feb, [facility] [address] [id number] [place] [address] Feb, [facility] [address] [id number] [place] [address] Feb, [facility] [address] [id number] [place] [address] Feb, [facility] [address] [id number] [place] [address] Dec, [facility] [address] [id number] [place] [address] Dec, [facility] [address] [id number] [place] [address] 29 Nov, 2013 [facility] [address] [id number] [place] [address] 29 Nov, 2013 [facility] [address] [id number] [place] [address] 29 Nov, 2013 [facility] [address] [id number] [place] [address] 29 Nov, 2013 [facility] [address] [facility] [id number] [facility] [place] [address] 17 Nov, 2013 [facility] [address] [facility] [id number] [place] [address] Nov, [facility] [address] [id number] [place] [address] Nov, [facility] [address] [id number] [place] [address] Nov, [facility] [address] [facility] [id number] [place] [address] Aug, [facility] [address] [id number] [place] [address] Aug, [facility] [address] [id number] [place] [address] Aug, [facility] [address] [id number] [place] [address] Aug, [facility] [address] [id number] [place] [address] July, [facility] [address] [id number] [place] [address] July, [facility] [address] [id number] [place] [address] Jun, [facility] [address] [id number] [place] [address] Jun, [facility] [address] [id number] [place] [address] Jun, [facility] [address] [id number] [place] [address] Jun, [facility] [address] [id number] [place] [address] May, [facility] [address] [id number] [place] [address] May, [facility] [address] [id number] [place] [address] Apr, [facility] [address] [id number] [place] [address] Apr, [facility] [address] [id number] [place] [address] Mar, [facility] [address] [id number] [place] [address] Mar, [facility] [address] [id number] [place] [address] Mar, [facility] [address] [id number] [place] [address] Mar, [facility] [address] [id number] [place] [address] Feb, [facility] [address] [place] [id number] [place] [address] Feb, [facility] [address] [place] [id number] [place] [address] Jan, [facility] [address] [id number] [place] [address] Jan, [facility] [address] [place] [id number] [place] [address] Dec, [facility] [address] [id number] [place] [address] Dec, [facility] [address] [id number] [place] [address] Dec, [facility] [address] [id number] [place] [address] Dec, [facility] [address] [place] [id number] [place] [address] Nov, [facility] [address] [id number] [place] [address] Sep, [facility] [address] [id number] [place] [address] Sep, [facility] [address] [id number] [place] [address] Aug, [facility] [address] [id number] [place] [address] July, [facility] [address] [id number] [place] [address] Jun, [facility] [address] [id number] [place] [address] May, [facility] [address] [id number] [place] [address] May, [facility] [address] [id number] [place] [address] May, [facility] [address] [id number] [place] [address] May, [facility] [address] [id number] [place] [address] May, [facility] [address] [id number] [place] [address] Feb, [facility] [address] [id number] [place] [address] Feb, [facility] [address] [id number] [place] [address] Jan, [facility] [address] [id number] [place] [address] Jan, [facility] [address] [id number] [place] [address] Jan, [facility] [address] [id number] [place] [address] Jan, [facility] [address] [id number] [place] [address] Jan, [facility] [address] [id number] [place] [address] Jan, [facility] [address] [id number] [place] [address] 18 Dec, 2011 [facility] [address] [id number] [place] [address] Dec, [facility] [address] [id number] [place] [address] Dec, [facility] [address] [id number] [place] [address] Dec, [facility] [address] [id number] [place] [address] Dec, [facility] [address] [id number] [place] [address] Nov, [facility] [address] [id number] [place] [address] Nov, [facility] [address] [id number] [place] [address] Nov, [facility] [address] [id number] [place] [address] Sep, [facility] [address] [id number] [place] [address] Aug, [facility] [address] [id number] [place] [address] Aug, [facility] [address] [id number] [place] [address] May, [facility] [address] [id number] [place] [address] Apr, [facility] [address] [id number] [place] [address] Mar, [facility] [address] [id number] [place] [address] Mar, [facility] [address] [id number] [place] [address] Dec, [facility] [address] [id number] [place] [address] Sep, [facility] [address] [id number] [place] [address] 2010 [facility] [id number] [place] [address] 2010 [facility] [id number] [place] [address] Jan, [facility] [id number] [place] [address] 08 Jan, 2010 [facility] [id number] [place] [address] 10 Nov, 2009 [facility] [id number] [place] [address] 15 Feb, 2009 [facility] [id number] [place] [address] 15 Feb, 2009 [facility] [id number] [place] [address] 16 Jan, 2009 [facility] [id number] [place] [address] 16 Jan, 2009 [facility] [id number] [place] [address] Dec, [facility] [id number] [place] [address] Dec, [facility] [id number] [place] [address] Nov, [facility] [id number] [place] [address] Oct, [facility] [id number] [place] [address] Sep, [facility] [id number] [place] [address] Aug, IMMUNIZATIONS No Known Immunizations SOCIAL HISTORY Never Assessed REASON FOR VISIT [facility] follow up, PT states he went to [facility] ER and diagnosed with pneumonia, stayed for two days. -Guzman [facility] PLAN OF CARE VITAL SIGNS Height 71 in 2018-05-30 Weight 272.8 lbs 2018-05-30 Temperature 97.7 degrees Fahrenheit 2018-05-30 Heart Rate 81 bpm 2018-05-30 Respiratory Rate 20 2018-05-30 Oximetry 97 % 2018-05-30 BMI 38.04 kg/m2 2018-05-30 Blood pressure systolic 138 mmHg 2018-05-30 Blood pressure diastolic 62 mmHg 2018-05-30 MEDICATIONS Medication Instructions Dosage Frequency Start Date End Date Duration S tatus Metformin HCl 1000 mg 1 tablet with meals 12h 90 Active Levemir FlexTouch 100 UNIT/ML DX E11.59 2 times a day 30 units 12h 30 Active Ondansetron HCl 8 MG as directed Active Amlodipine Besylate 5 mg 1 tablet 24h 90 Active Pen [place] 32G X 4 MM subcutaneously 4 times a day as directed wit h insulin 6h Sep, Active NovoLog Flexpen 100 UNIT/ML Subcutaneous 2 times a day befor e meals inject 15 units Sep, Active Allopurinol 300 MG Orally Once a day 1 tablet 24h 30 day(s) Active Lisinopril-Hydrochlorothiazide 20-12.5MG Orally Once a day 1 tablet 24h Active Lovastatin 20MG 1 tablet 24h Active Metoprolol Tartrate 50MG 1 tablet 12h Active Fish Oil 1000 MG Orally Once a day 1 capsule 24h Active ProAir HFA 108 (90 Base) MCG/ACT Inhalation every 6 hrs 2 puffs as needed 6h May, Not-Taking Aspirin 81 MG Orally Once a day 1 tablet 24h Active Amaryl 4 MG Orally 2 times per day 1 tablet 90 Active Acyclovir 800 MG Orally Twice a day 1 tablet 12h 10 day(s) Active RESULTS No Results PROCEDURES Procedure Date Ordered Result Body Site [facility] VISIT ESTABLISHED PATIENT May 30, 2018 INSTRUCTIONS MEDICATIONS ADMINISTERED No Known Medications MEDICAL (GENERAL) HISTORY Type Description Date Medical History hypertension Medical History type II diabetes Medical History hyperlipidemia Medical History chronic pain-knees 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
--- OUTSIDE RECORDS SUMMARY | 2019-05-19 20:56 | XMS REPORT ---
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 Active 296373479 Problem Diabetes type 2, controlled E11.9 Ac tive 87565643 Problem Type 2 diabetes mellitus with hyperglycemia E11.65 Active 235573717 Problem Other elevated white blood cell (WBC) count D72.82 8 Active 571670749 Problem FCI (current) use of insulin Z79.4 Active 661574580 Problem FCI current use of insulin Z79.4 Active 674269751 Problem Controlled type 2 diabetes m ellitus without complication, without long- term current use of insulin E11.9 Active 118254936 Problem Type 2 diabetes mellitus without complications E11 .9 Active 384249929 Problem Other chronic pain G89.29 Active 8 [id number] ALLERGIES No Information ENCOUNTERS Encounter Location Date Diagnosis [place] [address] [address] Jun, [place] [address] [address] May, Cellulitis of left leg L03.116 [place] [address] [address] Dec, Type 2 diabetes mellitus without complic ations E11.9 ; Encounter for immunization Z23 and FCI (current) use of insulin Z79.4 [place] [address] [address] Oct, [place] [address] [address] July, [place] [address] [address] May, Type 2 diabetes mellitus with other circ ulatory complications E11.59 and Viral bronchitis J20.8 [place] [address] [address] May, Diabetes type 2, controlled E11.9 [place] [address] [address] May, [place] [address] [address] May, Type 2 diabetes mellitus with other circ ulatory complications E11.59 and Viral bronchitis J20.8 [place] [address] [address] Apr, [place] [address] [address] Feb, Type 2 diabetes mellitus with hyperglyce toshia E11.65 [place] [address] [address] Jan, Type 2 diabetes mellitus with other circ ulatory complications E11.59 [place] [address] [address] Nov, [place] [address] [address] Oct, Other elevated white blood cell (WBC) co unt D72.828 and Type 2 diabetes mellitus with other circulatory complications E11.59 [place] [address] [address] Sep, [place] [address] [address] Sep, Diabetes type 2, controlled E11.9 [place] [address] [address] Aug, Type 2 diabetes mellitus with hyperglyce toshia E11.65 [place] [address] [address] July, [place] [address] [address] Jun, Diabetes type 2, controlled E11.9 ; Othe r chronic pain G89.29 ; Pain in left knee M25.562 and Pain in right knee M25.561 [place] [address] [place] [id number] [place] [address] May, [place] [address] [address] Feb, Other viral agents as the cause of disea ses classified elsewhere B97.89 and Acute upper respiratory infection, unspecified J06.9 [place] [address] [address] Feb, [place] [address] [address] Feb, Type 2 diabetes mellitus without complic ations E11.9 and FCI current use of insulin Z79.4 [place] [address] [place] [id number] [place] [address] Dec, [place] [address] [address] Dec, [place] [address] [address] 28 Nov, 2016 Type 2 diabetes mellitus without complic ations E11.9 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 [place] [address] [place] [id number] [place] [address] Nov, [place] [address] [address] Nov, Controlled type 2 diabetes mellitus with out complication, without long-term current use of insulin E11.9 [place] [address] [address] Nov, Controlled type 2 diabetes mellitus with out complication, without long-term current use of insulin E11.9 [place] [address] [place] [address] [place] [address] Nov, Type 2 diabetes mellitus with other circ ulatory complications E11.59 [facility] [address] [place] [id number] [place] [address] Oct, Type 2 diabetes mellitus with hyperglyce toshia E11.65 [facility] [address] [place] [id number] [place] [address] Oct, [facility] [address] [address] Oct, [place] [address] [address] Oct, Type 2 diabetes mellitus without complic ations E11.9 [place] [address] [place] [id number] [place] [address] Sep, Type 2 diabetes mellitus with hyperglyce toshia E11.65 [place] [address] [place] [id number] [place] [address] Sep, Type 2 diabetes mellitus with other circ ulatory complications E11.59 [place] [address] [place] [id number] [place] [address] Aug, [place] [address] [address] July, Controlled type 2 diabetes mellitus with out complication, without long-term current use of insulin E11.9 [place] [address] [place] [id number] [place] [address] May, [place] [address] [place] [id number] [place] [address] Feb, Controlled type 2 diabetes mellitus with out complication, without long-term current use of insulin E11.9 [place] [address] [place] [id number] [place] [address] Jan, Controlled type 2 diabetes mellitus with out complication, without long-term current use of insulin E11.9 [place] [address] [place] [id number] [place] [address] Jan, Type 2 diabetes mellitus with hyperglyce toshia E11.65 and FCI current use of insulin Z79.4 [facility] [address] [address] Nov, Diabetes type 2, controlled E11.9 [facility] [address] [address] Aug, Type 2 diabetes mellitus with other circ ulatory complications E11.59 and Hypertension, essential I10 [place] [address] [address] July, Type 2 diabetes mellitus with hyperglyce toshia E11.65 and Hypertension, benign I10 [place] [address] [address] May, Type 2 diabetes mellitus with other circ ulatory complications E11.59 [place] [address] [address] Apr, Diabetes type 2, controlled E11.9 [place] [address] [address] Jan, Type 2 diabetes mellitus with other circ ulatory complications E11.59 [place] [address] [address] Dec, Type 2 diabetes mellitus with other circ ulatory complications E11.59 [place] [address] [address] Aug, Diabetes 250.00 [facility] [address] [address] July, Diabetes 250.00 [facility] [address] [address] Jun, [place] [address] [address] Jun, [facility] [address] [address] Jun, [facility] [address] [address] 14 Jun, 2014 [facility] [address] [id number] [place] [address] Jun, [facility] [address] [id number] [place] [address] May, [facility] [address] [id number] [place] [address] May, [facility] [address] [id number] [place] [address] Apr, [facility] [address] [id number] [place] [address] Apr, [facility] [address] [id number] [place] [address] Mar, [facility] [address] [id number] [place] [address] Mar, [facility] [address] [id number] [place] [address] Feb, [facility] [address] [id number] [place] [address] 29 Feb, 2014 [facility] [address] [id number] [place] [address] Feb, [facility] [address] [id number] [place] [address] Feb, [facility] [address] [id number] [place] [address] 15 Feb, 2014 [facility] [address] [id number] [place] [address] 15 Feb, 2014 [facility] [address] [id number] [place] [address] Dec, [facility] [address] [id number] [place] [address] Dec, [facility] [address] [id number] [place] [address] 29 Nov, 2013 [facility] [address] [facility] [id number] [place] [address] 29 Nov, 2013 [facility] [address] [id number] [place] [address] 29 Nov, 2013 [facility] [address] [facility] [id number] [place] [address] 29 Nov, 2013 [facility] [address] [id number] [place] [address] 17 Nov, 2013 [facility] [address] [facility] [id number] [place] [address] 17 Nov, 2013 [facility] [address] [id number] [place] [address] 12 Nov, 2013 [facility] [address] [id number] [place] [address] Nov, [facility] [address] [id number] [place] [address] Aug, [facility] [address] [id number] [place] [address] Aug, [facility] [address] [id number] [place] [address] Aug, [facility] [address] [id number] [place] [address] Aug, [facility] [address] [id number] [place] [address] July, [facility] [address] [id number] [place] [address] July, [facility] [address] [id number] [place] [address] 15 Jun, 2013 [facility] [address] [id number] [place] [address] 15 Jun, 2013 [facility] [address] [id number] [place] [address] 15 Jun, 2013 [facility] [address] [id number] [place] [address] Jun, [facility] [address] [id number] [place] [address] May, [facility] [address] [place] [id number] [place] [address] May, [facility] [address] [id number] [place] [address] Apr, [facility] [address] [place] [id number] [place] [address] Apr, [facility] [address] [id number] [place] [address] Mar, [facility] [address] [place] [id number] [place] [address] Mar, [facility] [address] [id number] [place] [address] Mar, [facility] [address] [place] [id number] [place] [address] Mar, [facility] [address] [id number] [place] [address] Feb, [facility] [address] [place] [id number] [place] [address] Feb, [facility] [address] [place] [id number] [place] [address] Jan, [facility] [address] [place] [id number] [place] [address] Jan, [facility] [address] [place] [id number] [place] [address] Dec, [facility] [address] [id number] [place] [address] Dec, [facility] [address] [place] [id number] [place] [address] Dec, [facility] [address] [place] [id number] [place] [address] Dec, [facility] [address] [id number] [place] [address] Nov, [facility] [address] [id number] [place] [address] Sep, [facility] [address] [id number] [place] [address] Sep, [facility] [address] [id number] [place] [address] Aug, [facility] [address] [id number] [place] [address] July, [facility] [address] [id number] [place] [address] Jun, [facility] [address] [id number] [place] [address] May, [facility] [address] [id number] [place] [address] May, [facility] [address] [id number] [place] [address] May, [facility] [address] [id number] [place] [address] May, [facility] [address] [id number] [place] [address] May, [facility] [address] [id number] [place] [address] Feb, [facility] [address] [id number] [place] [address] Feb, [facility] [address] [id number] [place] [address] Jan, [facility] [address] [place] [id number] [place] [address] Jan, [facility] [address] [id number] [place] [address] Jan, [facility] [address] [id number] [place] [address] Jan, [facility] [address] [id number] [place] [address] 07 Jan, 2012 [facility] [address] [id number] [place] [address] Jan, [facility] [address] [id number] [place] [address] Dec, [facility] [address] [id number] [place] [address] Dec, [facility] [address] [id number] [place] [address] Dec, [facility] [address] [id number] [place] [address] Dec, [facility] [address] [id number] [place] [address] Dec, [facility] [address] [id number] [place] [address] Nov, [facility] [address] [id number] [place] [address] Nov, [facility] [address] [id number] [place] [address] Nov, [facility] [address] [id number] [place] [address] Sep, [facility] [address] [id number] [place] [address] Aug, [facility] [address] [id number] [place] [address] Aug, [facility] [address] [id number] [place] [address] May, [facility] [address] [id number] [place] [address] Apr, [facility] [address] [id number] [place] [address] Mar, [facility] [address] [id number] [place] [address] Mar, [facility] [address] [facility] [id number] [place] [address] 28 Dec, 2010 [facility] [address] [id number] [place] [address] 11 Sep, 2010 [facility] [address] [id number] [place] [address] 2010 [facility] [address] [id number] [place] [address] 2010 [facility] [address] [id number] [place] [address] 11 Jan, 2010 [facility] [address] [id number] [place] [address] 08 Jan, 2010 [facility] [address] [id number] [place] [address] 10 Nov, 2009 [facility] [address] [id number] [place] [address] 15 Feb, 2009 [facility] [address] [id number] [place] [address] 15 Feb, 2009 [facility] [address] [id number] [place] [address] 16 Jan, 2009 [facility] [address] [id number] [place] [address] 16 Jan, 2009 [facility] [address] [id number] [place] [address] 13 Dec, 2008 [facility] [address] [id number] [place] [address] 13 Dec, 2008 [facility] [address] [id number] [place] [address] 15 Nov, 2008 [facility] [address] [id number] [place] [address] 17 Oct, 2008 [facility] [address] [id number] [place] [address] 13 Sep, 2008 [facility] [address] [id number] [place] [address] Aug, IMMUNIZATIONS No Known Immunizations SOCIAL HISTORY Never Assessed REASON FOR VISIT PLAN OF CARE VITAL SIGNS MEDICATIONS Unknown [...] replacement 2018 Hospitalization History surgeries Hospitalization History pneumonia-[facility] 05/2018
--- OUTSIDE RECORDS SUMMARY | 2019-05-19 20:56 | XMS REPORT ---
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 Active 835175936 Problem 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 Active 241759049 Problem Controlled type 2 diabetes m ellitus without complication, without long- term current use of insulin E11.9 Active 015070978 Problem Type 2 diabetes mellitus without complications E11 .9 Active 966266549 Problem Other chronic pain G89.29 Active 8 [id number] ALLERGIES No Information ENCOUNTERS Encounter Location Date Diagnosis [place] [address] [address] Dec, Type 2 diabetes mellitus without complic ations E11.9 ; Encounter for immunization Z23 and custodial (current) use of insulin Z79.4 [place] [address] [address] Oct, [place] [address] [address] July, [place] [address] [address] May, Type 2 diabetes mellitus with other circ ulatory complications E11.59 and Viral bronchitis J20.8 [place] [address] [address] May, Diabetes type 2, controlled E11.9 [place] [address] [address] May, [place] [address] [address] May, Type 2 diabetes mellitus with other circ ulatory complications E11.59 and Viral bronchitis J20.8 [place] [address] [address] Apr, [place] [address] [address] Feb, Type 2 diabetes mellitus with hyperglyce toshia E11.65 [place] [address] [address] Jan, Type 2 diabetes mellitus with other circ ulatory complications E11.59 [place] [address] [address] Nov, [place] [address] [address] Oct, Other elevated white blood cell (WBC) co unt D72.828 and Type 2 diabetes mellitus with other circulatory complications E11.59 [place] [address] [address] Sep, [place] [address] [address] Sep, Diabetes type 2, controlled E11.9 [place] [address] [address] Aug, Type 2 diabetes mellitus with hyperglyce toshia E11.65 [place] [address] [address] July, [address] [address] Jun, Diabetes type 2, controlled E11.9 ; Othe r chronic pain G89.29 ; Pain in left knee M25.562 and Pain in right knee M25.561 [place] [address] [address] May, [place] [address] [address] Feb, Other viral agents as the cause of disea ses classified elsewhere B97.89 and Acute upper respiratory infection, unspecified J06.9 [place] [address] [address] Feb, [place] [address] [address] Feb, Type 2 diabetes mellitus without complic ations E11.9 and 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 [place] [address] [address] Dec, [place] [address] [address] Dec, [place] [address] [address] Nov, Type 2 diabetes mellitus without complic ations E11.9 and custodial current use of insulin Z79.4 [place] [address] [address] Nov, [place] [address] [address] Nov, Controlled type 2 diabetes mellitus with out complication, without long-term current use of insulin E11.9 [place] [address] [address] Nov, Controlled type 2 diabetes mellitus with out complication, without long-term current use of insulin E11.9 [place] [address] [address] Nov, Type 2 diabetes mellitus with other circ ulatory complications E11.59 [place] [address] [address] Oct, Type 2 diabetes mellitus with hyperglyce toshia E11.65 [facility] [address] [place] [id number] [place] [address] Oct, [facility] [address] [place] [id number] [place] [address] Oct, [facility] [address] [place] [id number] [place] [address] Oct, Type 2 diabetes mellitus without complic ations E11.9 [facility] [address] [place] [id number] [place] [address] Sep, Type 2 diabetes mellitus with hyperglyce toshia E11.65 [facility] [address] [place] [id number] [place] [address] Sep, Type 2 diabetes mellitus with other circ ulatory complications E11.59 [facility] [address] [place] [id number] [place] [address] Aug, [facility] [address] [address] July, Controlled type 2 diabetes mellitus with out complication, without long-term current use of insulin E11.9 [facility] [address] [place] [id number] [place] [address] May, [facility] [address] [place] [id number] [place] [address] Feb, Controlled type 2 diabetes mellitus with out complication, without long-term current use of insulin E11.9 [facility] [address] [place] [id number] [place] [address] Jan, Controlled type 2 diabetes mellitus with out complication, without long-term current use of insulin E11.9 [facility] [address] [place] [id number] [place] [address] Jan, Type 2 diabetes mellitus with hyperglyce toshia E11.65 and 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 [facility] [address] [place] [id number] [place] [address] Nov, Diabetes type 2, controlled E11.9 [facility] [address] [address] 17 Aug, 2015 Type 2 diabetes mellitus with other circ ulatory complications E11.59 and Hypertension, essential I10 [facility] [address] [address] July, Type 2 diabetes mellitus with hyperglyce toshia E11.65 and Hypertension, benign I10 [facility] [address] [address] May, Type 2 diabetes mellitus with other circ ulatory complications E11.59 [facility] [address] [address] Apr, Diabetes type 2, controlled E11.9 [place] [address] [address] Jan, Type 2 diabetes mellitus with other circ ulatory complications E11.59 [place] [address] [address] Dec, Type 2 diabetes mellitus with other circ ulatory complications E11.59 [facility] [address] [address] Aug, Diabetes 250.00 [place] [address] [address] July, Diabetes 250.00 [facility] [address] [address] Jun, [facility] [address] [address] Jun, [facility] [address] [address] Jun, [facility] [address] [address] 14 Jun, 2014 [facility] [address] [address] Jun, [facility] [address] [address] May, [facility] [address] [id number] [place] [address] May, [facility] [address] [id number] [place] [address] Apr, [facility] [address] [id number] [place] [address] Apr, [facility] [address] [id number] [place] [address] Mar, [facility] [address] [id number] [place] [address] Mar, [facility] [address] [id number] [place] [address] Feb, [facility] [address] [id number] [place] [address] Feb, [facility] [address] [id number] [place] [address] Feb, [facility] [address] [id number] [place] [address] Feb, [facility] [address] [id number] [place] [address] Feb, [facility] [address] [id number] [place] [address] Feb, [facility] [address] [id number] [place] [address] Dec, [facility] [address] [id number] [place] [address] Dec, [facility] [address] [id number] [place] [address] 29 Nov, 2013 [facility] [address] [id number] [place] [address] 29 Nov, 2013 [facility] [address] [id number] [place] [address] 29 Nov, 2013 [facility] [address] [id number] [place] [address] 29 Nov, 2013 [facility] [address] [facility] [id number] [facility] [address] 17 Nov, 2013 [facility] [address] [facility] [id number] [place] [address] Nov, [facility] [address] [id number] [place] [address] Nov, [facility] [address] [id number] [place] [address] Nov, [facility] [address] [facility] [id number] [facility] [address] Aug, [facility] [address] [id number] [place] [address] Aug, [facility] [address] [id number] [place] [address] Aug, [facility] [address] [id number] [place] [address] Aug, [facility] [address] [id number] [place] [address] July, [facility] [address] [id number] [place] [address] July, [facility] [address] [id number] [place] [address] Jun, [facility] [address] [id number] [place] [address] Jun, [facility] [address] [id number] [place] [address] Jun, [facility] [address] [id number] [place] [address] Jun, [facility] [address] [id number] [place] [address] May, [facility] [address] [id number] [place] [address] May, [facility] [address] [id number] [place] [address] Apr, [facility] [address] [id number] [place] [address] Apr, [facility] [address] [id number] [place] [address] Mar, [facility] [address] [id number] [place] [address] Mar, [facility] [address] [id number] [place] [address] Mar, [facility] [address] [id number] [place] [address] Mar, [facility] [address] [id number] [place] [address] Feb, [facility] [address] [place] [id number] [place] [address] Feb, [facility] [address] [place] [id number] [place] [address] Jan, [facility] [address] [id number] [place] [address] Jan, [facility] [address] [place] [id number] [place] [address] Dec, [facility] [address] [id number] [place] [address] Dec, [facility] [address] [id number] [place] [address] Dec, [facility] [address] [id number] [place] [address] Dec, [facility] [address] [place] [id number] [place] [address] Nov, [facility] [address] [id number] [place] [address] Sep, [facility] [address] [id number] [place] [address] Sep, [facility] [address] [id number] [place] [address] Aug, [facility] [address] [id number] [place] [address] July, [facility] [address] [id number] [place] [address] Jun, [facility] [address] [id number] [place] [address] May, [facility] [address] [id number] [place] [address] May, [facility] [address] [id number] [place] [address] May, [facility] [address] [id number] [place] [address] May, [facility] [address] [id number] [place] [address] May, [facility] [address] [id number] [place] [address] Feb, [facility] [address] [id number] [place] [address] Feb, [facility] [address] [id number] [place] [address] Jan, [facility] [address] [id number] [place] [address] Jan, [facility] [address] [id number] [place] [address] Jan, [facility] [address] [id number] [place] [address] Jan, [facility] [address] [id number] [place] [address] Jan, [facility] [address] [id number] [place] [address] Jan, [facility] [address] [id number] [place] [address] 18 Dec, 2011 [facility] [address] [id number] [place] [address] Dec, [facility] [address] [id number] [place] [address] Dec, [facility] [address] [id number] [place] [address] Dec, [facility] [address] [id number] [place] [address] Dec, [facility] [address] [id number] [place] [address] Nov, [facility] [address] [id number] [place] [address] Nov, [facility] [address] [id number] [place] [address] Nov, [facility] [address] [id number] [place] [address] Sep, [facility] [address] [id number] [place] [address] Aug, [facility] [address] [id number] [place] [address] Aug, [facility] [address] [id number] [place] [address] May, [facility] [address] [id number] [place] [address] Apr, [facility] [address] [id number] [place] [address] Mar, [facility] [address] [id number] [place] [address] Mar, [facility] [address] [id number] [place] [address] Dec, [facility] [address] [id number] [place] [address] Sep, [facility] [address] [id number] [place] [address] 2010 [facility] [id number] [place] [address] 2010 [facility] [id number] [place] [address] Jan, [facility] [address] [id number] [place] [address] 08 Jan, 2010 [facility] [id number] [place] [address] 10 Nov, 2009 [facility] [id number] [place] [address] 15 Feb, 2009 [facility] [id number] [place] [address] 15 Feb, 2009 [facility] [id number] [place] [address] 16 Jan, 2009 [facility] [id number] [place] [address] 16 Jan, 2009 [facility] [id number] [place] [address] Dec, [facility] [id number] [place] [address] Dec, [facility] [id number] [place] [address] 15 Nov, 2008 [facility] [id number] [place] [address] Oct, [facility] [id number] [place] [address] Sep, [facility] [id number] [place] [address] Aug, IMMUNIZATIONS No Known Immunizations SOCIAL HISTORY Never Assessed REASON FOR VISIT PLAN OF CARE VITAL SIGNS MEDICATIONS No [...] Right knee replacement 2017 Hospitalization History surgeries Hospitalization History pneumonia-[facility] 05/2018
--- OUTSIDE RECORDS SUMMARY | 2019-05-19 20:56 | XMS REPORT ---
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 Active 299230563 Problem Diabetes type 2, controlled E11.9 Ac tive 49905102 Problem Type 2 diabetes mellitus with hyperglycemia E11.65 Active 706234136 Problem Other elevated white blood cell (WBC) count D72.82 8 Active 506060695 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 485850244 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 Active 767081411 Problem Controlled type 2 diabetes m ellitus without complication, without long- term current use of insulin E11.9 Active 544733042 Problem Type 2 diabetes mellitus without complications E11 .9 Active 125331466 Problem Other chronic pain G89.29 Active 8 [id number] ALLERGIES No Information ENCOUNTERS Encounter Location Date Diagnosis [place] [address] [address] Dec, Type 2 diabetes mellitus without complic ations E11.9 ; Encounter for immunization Z23 and nursing home (current) use of insulin Z79.4 [place] [address] [address] Oct, [place] [address] [address] July, [place] [address] [address] May, Type 2 diabetes mellitus with other circ ulatory complications E11.59 and Viral bronchitis J20.8 [place] [address] [address] May, Diabetes type 2, controlled E11.9 [place] [address] [address] May, [place] [address] [address] May, Type 2 diabetes mellitus with other circ ulatory complications E11.59 and Viral bronchitis J20.8 [place] [address] [address] Apr, [place] [address] [address] Feb, Type 2 diabetes mellitus with hyperglyce toshia E11.65 [place] [address] [address] Jan, Type 2 diabetes mellitus with other circ ulatory complications E11.59 [place] [address] [address] Nov, [place] [address] [address] Oct, Other elevated white blood cell (WBC) co unt D72.828 and Type 2 diabetes mellitus with other circulatory complications E11.59 [place] [address] [address] Sep, [place] [address] [address] Sep, Diabetes type 2, controlled E11.9 [place] [address] [address] Aug, Type 2 diabetes mellitus with hyperglyce toshia E11.65 [place] [address] [address] July, [address] [address] Jun, Diabetes type 2, controlled E11.9 ; Othe r chronic pain G89.29 ; Pain in left knee M25.562 and Pain in right knee M25.561 [place] [address] [address] May, [place] [address] [address] Feb, Other viral agents as the cause of disea ses classified elsewhere B97.89 and Acute upper respiratory infection, unspecified J06.9 [place] [address] [address] Feb, [place] [address] [address] Feb, Type 2 diabetes mellitus without complic ations E11.9 and 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 [place] [address] [address] Dec, [place] [address] [address] Dec, [place] [address] [address] Nov, Type 2 diabetes mellitus without complic ations E11.9 and nursing home current use of insulin Z79.4 [place] [address] [address] Nov, [place] [address] [address] Nov, Controlled type 2 diabetes mellitus with out complication, without long-term current use of insulin E11.9 [place] [address] [address] Nov, Controlled type 2 diabetes mellitus with out complication, without long-term current use of insulin E11.9 [place] [address] [address] Nov, Type 2 diabetes mellitus with other circ ulatory complications E11.59 [place] [address] [address] Oct, Type 2 diabetes mellitus with hyperglyce toshia E11.65 [facility] [address] [place] [id number] [place] [address] Oct, [facility] [address] [place] [id number] [place] [address] Oct, [facility] [address] [place] [id number] [place] [address] Oct, Type 2 diabetes mellitus without complic ations E11.9 [facility] [address] [place] [id number] [place] [address] Sep, Type 2 diabetes mellitus with hyperglyce toshia E11.65 [facility] [address] [place] [id number] [place] [address] Sep, Type 2 diabetes mellitus with other circ ulatory complications E11.59 [facility] [address] [place] [id number] [place] [address] Aug, [facility] [address] [address] July, Controlled type 2 diabetes mellitus with out complication, without long-term current use of insulin E11.9 [facility] [address] [place] [id number] [place] [address] May, [facility] [address] [place] [id number] [place] [address] Feb, Controlled type 2 diabetes mellitus with out complication, without long-term current use of insulin E11.9 [facility] [address] [place] [id number] [place] [address] Jan, Controlled type 2 diabetes mellitus with out complication, without long-term current use of insulin E11.9 [facility] [address] [place] [id number] [place] [address] Jan, Type 2 diabetes mellitus with hyperglyce toshia E11.65 and 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 [facility] [address] [place] [id number] [place] [address] Nov, Diabetes type 2, controlled E11.9 [facility] [address] [address] 17 Aug, 2015 Type 2 diabetes mellitus with other circ ulatory complications E11.59 and Hypertension, essential I10 [facility] [address] [address] July, Type 2 diabetes mellitus with hyperglyce toshia E11.65 and Hypertension, benign I10 [facility] [address] [address] May, Type 2 diabetes mellitus with other circ ulatory complications E11.59 [facility] [address] [address] Apr, Diabetes type 2, controlled E11.9 [place] [address] [address] Jan, Type 2 diabetes mellitus with other circ ulatory complications E11.59 [place] [address] [address] Dec, Type 2 diabetes mellitus with other circ ulatory complications E11.59 [facility] [address] [address] Aug, Diabetes 250.00 [place] [address] [address] July, Diabetes 250.00 [facility] [address] [address] Jun, [facility] [address] [address] Jun, [facility] [address] [address] Jun, [facility] [address] [address] 14 Jun, 2014 [facility] [address] [address] Jun, [facility] [address] [address] May, [facility] [address] [id number] [place] [address] May, [facility] [address] [id number] [place] [address] Apr, [facility] [address] [id number] [place] [address] Apr, [facility] [address] [id number] [place] [address] Mar, [facility] [address] [id number] [place] [address] Mar, [facility] [address] [id number] [place] [address] Feb, [facility] [address] [id number] [place] [address] Feb, [facility] [address] [id number] [place] [address] Feb, [facility] [address] [id number] [place] [address] Feb, [facility] [address] [id number] [place] [address] Feb, [facility] [address] [id number] [place] [address] Feb, [facility] [address] [id number] [place] [address] Dec, [facility] [address] [id number] [place] [address] Dec, [facility] [address] [id number] [place] [address] 29 Nov, 2013 [facility] [address] [id number] [place] [address] 29 Nov, 2013 [facility] [address] [id number] [place] [address] 29 Nov, 2013 [facility] [address] [id number] [place] [address] 29 Nov, 2013 [facility] [address] [facility] [id number] [place] [address] 17 Nov, 2013 [facility] [address] [facility] [id number] [place] [address] Nov, [facility] [address] [id number] [place] [address] Nov, [facility] [address] [id number] [place] [address] Nov, [facility] [address] [facility] [id number] [place] [address] Aug, [facility] [address] [id number] [place] [address] Aug, [facility] [address] [id number] [place] [address] Aug, [facility] [address] [id number] [place] [address] Aug, [facility] [address] [id number] [place] [address] July, [facility] [address] [id number] [place] [address] July, [facility] [address] [id number] [place] [address] Jun, [facility] [address] [id number] [place] [address] Jun, [facility] [address] [id number] [place] [address] Jun, [facility] [address] [id number] [place] [address] Jun, [facility] [address] [id number] [place] [address] May, [facility] [address] [id number] [place] [address] May, [facility] [address] [id number] [place] [address] Apr, [facility] [address] [id number] [place] [address] Apr, [facility] [address] [id number] [place] [address] Mar, [facility] [address] [id number] [place] [address] Mar, [facility] [address] [id number] [place] [address] Mar, [facility] [address] [id number] [place] [address] Mar, [facility] [address] [id number] [place] [address] Feb, [facility] [address] [place] [id number] [place] [address] Feb, [facility] [address] [place] [id number] [place] [address] Jan, [facility] [address] [id number] [place] [address] Jan, [facility] [address] [place] [id number] [place] [address] Dec, [facility] [address] [id number] [place] [address] Dec, [facility] [address] [id number] [place] [address] Dec, [facility] [address] [id number] [place] [address] Dec, [facility] [address] [place] [id number] [place] [address] Nov, [facility] [address] [id number] [place] [address] Sep, [facility] [address] [id number] [place] [address] Sep, [facility] [address] [id number] [place] [address] Aug, [facility] [address] [id number] [place] [address] July, [facility] [address] [id number] [place] [address] Jun, [facility] [address] [id number] [place] [address] May, [facility] [address] [id number] [place] [address] May, [facility] [address] [id number] [place] [address] May, [facility] [address] [id number] [place] [address] May, [facility] [address] [id number] [place] [address] May, [facility] [address] [id number] [place] [address] Feb, [facility] [address] [id number] [place] [address] Feb, [facility] [address] [id number] [place] [address] Jan, [facility] [address] [id number] [place] [address] Jan, [facility] [address] [id number] [place] [address] Jan, [facility] [address] [id number] [place] [address] Jan, [facility] [address] [id number] [place] [address] Jan, [facility] [address] [id number] [place] [address] Jan, [facility] [address] [id number] [place] [address] 18 Dec, 2011 [facility] [address] [id number] [place] [address] Dec, [facility] [address] [id number] [place] [address] Dec, [facility] [address] [id number] [place] [address] Dec, [facility] [address] [id number] [place] [address] Dec, [facility] [address] [id number] [place] [address] Nov, [facility] [address] [id number] [place] [address] Nov, [facility] [address] [id number] [place] [address] Nov, [facility] [address] [id number] [place] [address] Sep, [facility] [address] [id number] [place] [address] Aug, [facility] [address] [id number] [place] [address] Aug, [facility] [address] [id number] [place] [address] May, [facility] [address] [id number] [place] [address] Apr, [facility] [address] [id number] [place] [address] Mar, [facility] [address] [id number] [place] [address] Mar, [facility] [address] [id number] [place] [address] Dec, [facility] [address] [id number] [place] [address] Sep, [facility] [address] [id number] [place] [address] 2010 [facility] [id number] [place] [address] 2010 [facility] [id number] [place] [address] Jan, [facility] [id number] [place] [address] 08 Jan, 2010 [facility] [id number] [place] [address] 10 Nov, 2009 [facility] [id number] [place] [address] 15 Feb, 2009 [facility] [id number] [place] [address] 15 Feb, 2009 [facility] [id number] [place] [address] 16 Jan, 2009 [facility] [id number] [place] [address] 16 Jan, 2009 [facility] [id number] [place] [address] Dec, [facility] [id number] [place] [address] Dec, [facility] [id number] [place] [address] 15 Nov, 2008 [facility] [id number] [place] [address] Oct, [facility] [id number] [place] [address] Sep, [facility] [id number] [place] [address] Aug, IMMUNIZATIONS No Known Immunizations SOCIAL HISTORY [...] replacement 2017 Hospitalization History surgeries Hospitalization History pneumonia-[facility] 05/2018
--- OUTSIDE RECORDS SUMMARY | 2019-05-19 20:57 | XMS REPORT ---
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 Active 849953032 Problem Diabetes type 2, controlled E11.9 Ac tive 48096972 Problem Type 2 diabetes mellitus with hyperglycemia E11.65 Active 012374855 Problem Other elevated white blood cell (WBC) count D72.82 8 Active 452296583 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 659595751 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 059782322 Problem Controlled type 2 diabetes m ellitus without complication, without long- term current use of insulin E11.9 Active 245854447 Problem Type 2 diabetes mellitus without complications E11 .9 Active 610896008 Problem Other chronic pain G89.29 Active 8 [id number] ALLERGIES No Information ENCOUNTERS Encounter Location Date Diagnosis [place] [address] [address] Dec, Type 2 diabetes mellitus without complic ations E11.9 ; Encounter for immunization Z23 and jail (current) use of insulin Z79.4 [place] [address] [address] Oct, [place] [address] [address] July, [place] [address] [address] May, Type 2 diabetes mellitus with other circ ulatory complications E11.59 and Viral bronchitis J20.8 [place] [address] [address] May, Diabetes type 2, controlled E11.9 [place] [address] [address] May, [place] [address] [address] May, Type 2 diabetes mellitus with other circ ulatory complications E11.59 and Viral bronchitis J20.8 [place] [address] [address] Apr, [place] [address] [address] Feb, Type 2 diabetes mellitus with hyperglyce toshia E11.65 [place] [address] [address] Jan, Type 2 diabetes mellitus with other circ ulatory complications E11.59 [place] [address] [address] Nov, [place] [address] [address] Oct, Other elevated white blood cell (WBC) co unt D72.828 and Type 2 diabetes mellitus with other circulatory complications E11.59 [place] [address] [address] Sep, [place] [address] [address] Sep, Diabetes type 2, controlled E11.9 [place] [address] [address] Aug, Type 2 diabetes mellitus with hyperglyce toshia E11.65 [place] [address] [address] July, [address] [address] Jun, Diabetes type 2, controlled E11.9 ; Othe r chronic pain G89.29 ; Pain in left knee M25.562 and Pain in right knee M25.561 [place] [address] [address] May, [place] [address] [address] Feb, Other viral agents as the cause of disea ses classified elsewhere B97.89 and Acute upper respiratory infection, unspecified J06.9 [place] [address] [address] Feb, [place] [address] [address] Feb, Type 2 diabetes mellitus without complic ations E11.9 and 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 [place] [address] [address] Dec, [place] [address] [address] Dec, [place] [address] [address] Nov, Type 2 diabetes mellitus without complic ations E11.9 and jail current use of insulin Z79.4 [place] [address] [address] Nov, [place] [address] [address] Nov, Controlled type 2 diabetes mellitus with out complication, without long-term current use of insulin E11.9 [place] [address] [address] Nov, Controlled type 2 diabetes mellitus with out complication, without long-term current use of insulin E11.9 [place] [address] [address] Nov, Type 2 diabetes mellitus with other circ ulatory complications E11.59 [place] [address] [address] Oct, Type 2 diabetes mellitus with hyperglyce toshia E11.65 [facility] [place] [address] [place] [id number] [place] [address] Oct, [facility] [place] [address] [place] [id number] [place] [address] Oct, [facility] [place] [address] [place] [id number] [place] [address] Oct, Type 2 diabetes mellitus without complic ations E11.9 [facility] [place] [address] [place] [id number] [place] [address] Sep, Type 2 diabetes mellitus with hyperglyce toshia E11.65 [facility] [place] [address] [place] [id number] [place] [address] Sep, Type 2 diabetes mellitus with other circ ulatory complications E11.59 [facility] [place] [address] [place] [id number] [place] [address] Aug, [facility] [place] [address] [address] July, Controlled type 2 diabetes mellitus with out complication, without long-term current use of insulin E11.9 [facility] [place] [address] [place] [id number] [place] [address] May, [facility] [place] [address] [place] [id number] [place] [address] Feb, Controlled type 2 diabetes mellitus with out complication, without long-term current use of insulin E11.9 [facility] [place] [address] [place] [id number] [place] [address] Jan, Controlled type 2 diabetes mellitus with out complication, without long-term current use of insulin E11.9 [facility] [place] [address] [place] [id number] [place] [address] Jan, Type 2 diabetes mellitus with hyperglyce toshia E11.65 and 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 [facility] [place] [address] [place] [id number] [place] [address] Nov, Diabetes type 2, controlled E11.9 [facility] [place] [address] [address] 17 Aug, 2015 Type 2 diabetes mellitus with other circ ulatory complications E11.59 and Hypertension, essential I10 [facility] [place] [address] [address] July, Type 2 diabetes mellitus with hyperglyce toshia E11.65 and Hypertension, benign I10 [facility] [place] [address] [address] May, Type 2 diabetes mellitus with other circ ulatory complications E11.59 [facility] [place] [address] [address] Apr, Diabetes type 2, controlled E11.9 [place] [address] [address] Jan, Type 2 diabetes mellitus with other circ ulatory complications E11.59 [place] [address] [address] Dec, Type 2 diabetes mellitus with other circ ulatory complications E11.59 [facility] [place] [address] [address] Aug, Diabetes 250.00 [place] [address] [address] July, Diabetes 250.00 [facility] [place] [address] [address] Jun, [facility] [place] [address] [address] Jun, [facility] [place] [address] [address] Jun, [facility] [place] [address] [address] 14 Jun, 2014 [facility] [place] [address] [address] Jun, [facility] [place] [address] [address] May, [facility] [address] [id number] [place] [address] May, [facility] [address] [id number] [place] [address] Apr, [facility] [address] [id number] [place] [address] Apr, [facility] [address] [id number] [place] [address] Mar, [facility] [address] [id number] [place] [address] Mar, [facility] [address] [id number] [place] [address] Feb, [facility] [address] [id number] [place] [address] Feb, [facility] [address] [id number] [place] [address] Feb, [facility] [address] [id number] [place] [address] Feb, [facility] [address] [id number] [place] [address] Feb, [facility] [address] [id number] [place] [address] Feb, [facility] [address] [id number] [place] [address] Dec, [facility] [address] [id number] [place] [address] Dec, [facility] [address] [id number] [place] [address] 29 Nov, 2013 [facility] [address] [id number] [place] [address] 29 Nov, 2013 [facility] [address] [id number] [place] [address] 29 Nov, 2013 [facility] [address] [id number] [place] [address] 29 Nov, 2013 [facility] [address] [facility] [id number] [facility] [address] 17 Nov, 2013 [facility] [address] [facility] [id number] [place] [address] Nov, [facility] [address] [id number] [place] [address] Nov, [facility] [address] [id number] [place] [address] Nov, [facility] [address] [facility] [id number] [facility] [address] Aug, [facility] [address] [id number] [place] [address] Aug, [facility] [address] [id number] [place] [address] Aug, [facility] [address] [id number] [place] [address] Aug, [facility] [address] [id number] [place] [address] July, [facility] [address] [id number] [place] [address] July, [facility] [address] [id number] [place] [address] Jun, [facility] [address] [id number] [place] [address] Jun, [facility] [address] [id number] [place] [address] Jun, [facility] [address] [id number] [place] [address] Jun, [facility] [address] [id number] [place] [address] May, [facility] [address] [id number] [place] [address] May, [facility] [address] [id number] [place] [address] Apr, [facility] [address] [id number] [place] [address] Apr, [facility] [address] [id number] [place] [address] Mar, [facility] [address] [id number] [place] [address] Mar, [facility] [address] [id number] [place] [address] Mar, [facility] [address] [id number] [place] [address] Mar, [facility] [address] [id number] [place] [address] Feb, [facility] [address] [place] [id number] [place] [address] Feb, [facility] [address] [place] [id number] [place] [address] Jan, [facility] [address] [id number] [place] [address] Jan, [facility] [address] [place] [id number] [place] [address] Dec, [facility] [address] [id number] [place] [address] Dec, [facility] [address] [id number] [place] [address] Dec, [facility] [address] [id number] [place] [address] Dec, [facility] [address] [place] [id number] [place] [address] Nov, [facility] [address] [id number] [place] [address] Sep, [facility] [address] [id number] [place] [address] Sep, [facility] [address] [id number] [place] [address] Aug, [facility] [address] [id number] [place] [address] July, [facility] [address] [id number] [place] [address] Jun, [facility] [address] [id number] [place] [address] May, [facility] [address] [id number] [place] [address] May, [facility] [address] [id number] [place] [address] May, [facility] [address] [id number] [place] [address] May, [facility] [address] [id number] [place] [address] May, [facility] [address] [id number] [place] [address] Feb, [facility] [address] [id number] [place] [address] Feb, [facility] [address] [id number] [place] [address] Jan, [facility] [address] [id number] [place] [address] Jan, [facility] [address] [id number] [place] [address] Jan, [facility] [address] [id number] [place] [address] Jan, [facility] [address] [id number] [place] [address] Jan, [facility] [address] [id number] [place] [address] Jan, [facility] [address] [id number] [place] [address] 18 Dec, 2011 [facility] [address] [id number] [place] [address] Dec, [facility] [address] [id number] [place] [address] Dec, [facility] [address] [id number] [place] [address] Dec, [facility] [address] [id number] [place] [address] Dec, [facility] [address] [id number] [place] [address] Nov, [facility] [address] [id number] [place] [address] Nov, [facility] [address] [id number] [place] [address] Nov, [facility] [address] [id number] [place] [address] Sep, [facility] [address] [id number] [place] [address] Aug, [facility] [address] [id number] [place] [address] Aug, [facility] [address] [id number] [place] [address] May, [facility] [address] [id number] [place] [address] Apr, [facility] [address] [id number] [place] [address] Mar, [facility] [address] [id number] [place] [address] Mar, [facility] [address] [id number] [place] [address] Dec, [facility] [address] [id number] [place] [address] Sep, [facility] [address] [id number] [place] [address] 2010 [facility] [place] [address] [place] [id number] [place] [address] 2010 [facility] [place] [address] [place] [id number] [place] [address] Jan, [facility] [place] [address] [place] [id number] [place] [address] 08 Jan, 2010 [facility] [place] [address] [place] [id number] [place] [address] 10 Nov, 2009 [facility] [place] [address] [id number] [place] [address] 15 Feb, 2009 [facility] [place] [address] [place] [id number] [place] [address] 15 Feb, 2009 [facility] [place] [address] [place] [id number] [place] [address] 16 Jan, 2009 [facility] [place] [address] [id number] [place] [address] 16 Jan, 2009 [facility] [place] [address] [place] [id number] [place] [address] Dec, [facility] [place] [id number] [place] [address] Dec, [facility] [place] [id number] [place] [address] 15 Nov, 2008 [facility] [place] [id number] [place] [address] Oct, [facility] [place] [id number] [place] [address] Sep, [facility] [place] [id number] [place] [address] Aug, IMMUNIZATIONS No Known Immunizations SOCIAL HISTORY [...] replacement 2017 Hospitalization History surgeries Hospitalization History pneumonia-[facility] 05/2018
--- OUTSIDE RECORDS SUMMARY | 2019-05-19 20:57 | XMS REPORT ---
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 Active 080512241 Problem 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 Active 053225720 Problem Controlled type 2 diabetes m ellitus without complication, without long- term current use of insulin E11.9 Active 719783077 Problem Type 2 diabetes mellitus without complications E11 .9 Active 242906476 Problem Other chronic pain G89.29 Active 8 [id number] ALLERGIES No Information ENCOUNTERS Encounter Location Date Diagnosis [place] [address] [address] Dec, Type 2 diabetes mellitus without complic ations E11.9 ; Encounter for immunization Z23 and group home (current) use of insulin Z79.4 [place] [address] [address] Oct, [place] [address] [address] July, [place] [address] [address] May, Type 2 diabetes mellitus with other circ ulatory complications E11.59 and Viral bronchitis J20.8 [place] [address] [address] May, Diabetes type 2, controlled E11.9 [place] [address] [address] May, [place] [address] [address] May, Type 2 diabetes mellitus with other circ ulatory complications E11.59 and Viral bronchitis J20.8 [place] [address] [address] Apr, [place] [address] [address] Feb, Type 2 diabetes mellitus with hyperglyce toshia E11.65 [place] [address] [address] Jan, Type 2 diabetes mellitus with other circ ulatory complications E11.59 [place] [address] [address] Nov, [place] [address] [address] Oct, Other elevated white blood cell (WBC) co unt D72.828 and Type 2 diabetes mellitus with other circulatory complications E11.59 [place] [address] [address] Sep, [place] [address] [address] Sep, Diabetes type 2, controlled E11.9 [place] [address] [address] Aug, Type 2 diabetes mellitus with hyperglyce toshia E11.65 [place] [address] [address] July, [address] [address] Jun, Diabetes type 2, controlled E11.9 ; Othe r chronic pain G89.29 ; Pain in left knee M25.562 and Pain in right knee M25.561 [place] [address] [address] May, [place] [address] [address] Feb, Other viral agents as the cause of disea ses classified elsewhere B97.89 and Acute upper respiratory infection, unspecified J06.9 [place] [address] [address] Feb, [place] [address] [address] Feb, Type 2 diabetes mellitus without complic ations E11.9 and 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 [place] [address] [address] Dec, [place] [address] [address] Dec, [place] [address] [address] Nov, Type 2 diabetes mellitus without complic ations E11.9 and group home current use of insulin Z79.4 [place] [address] [address] Nov, [place] [address] [address] Nov, Controlled type 2 diabetes mellitus with out complication, without long-term current use of insulin E11.9 [place] [address] [address] Nov, Controlled type 2 diabetes mellitus with out complication, without long-term current use of insulin E11.9 [place] [address] [address] Nov, Type 2 diabetes mellitus with other circ ulatory complications E11.59 [place] [address] [address] Oct, Type 2 diabetes mellitus with hyperglyce toshia E11.65 [facility] [address] [place] [id number] [place] [address] Oct, [facility] [address] [place] [id number] [place] [address] Oct, [facility] [address] [place] [id number] [place] [address] Oct, Type 2 diabetes mellitus without complic ations E11.9 [facility] [address] [place] [id number] [place] [address] Sep, Type 2 diabetes mellitus with hyperglyce toshia E11.65 [facility] [address] [place] [id number] [place] [address] Sep, Type 2 diabetes mellitus with other circ ulatory complications E11.59 [facility] [address] [place] [id number] [place] [address] Aug, [facility] [address] [address] July, Controlled type 2 diabetes mellitus with out complication, without long-term current use of insulin E11.9 [facility] [address] [place] [id number] [place] [address] May, [facility] [address] [place] [id number] [place] [address] Feb, Controlled type 2 diabetes mellitus with out complication, without long-term current use of insulin E11.9 [facility] [address] [place] [id number] [place] [address] Jan, Controlled type 2 diabetes mellitus with out complication, without long-term current use of insulin E11.9 [facility] [address] [place] [id number] [place] [address] Jan, Type 2 diabetes mellitus with hyperglyce toshia E11.65 and 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 [facility] [address] [place] [id number] [place] [address] Nov, Diabetes type 2, controlled E11.9 [facility] [address] [address] 17 Aug, 2015 Type 2 diabetes mellitus with other circ ulatory complications E11.59 and Hypertension, essential I10 [facility] [address] [address] July, Type 2 diabetes mellitus with hyperglyce toshia E11.65 and Hypertension, benign I10 [facility] [address] [address] May, Type 2 diabetes mellitus with other circ ulatory complications E11.59 [facility] [address] [address] Apr, Diabetes type 2, controlled E11.9 [place] [address] [address] Jan, Type 2 diabetes mellitus with other circ ulatory complications E11.59 [place] [address] [address] Dec, Type 2 diabetes mellitus with other circ ulatory complications E11.59 [facility] [address] [address] Aug, Diabetes 250.00 [place] [address] [address] July, Diabetes 250.00 [facility] [address] [address] Jun, [facility] [address] [address] Jun, [facility] [address] [address] Jun, [facility] [address] [address] 14 Jun, 2014 [facility] [address] [address] Jun, [facility] [address] [address] May, [facility] [address] [id number] [place] [address] May, [facility] [address] [id number] [place] [address] Apr, [facility] [address] [id number] [place] [address] Apr, [facility] [address] [id number] [place] [address] Mar, [facility] [address] [id number] [place] [address] Mar, [facility] [address] [id number] [place] [address] Feb, [facility] [address] [id number] [place] [address] Feb, [facility] [address] [id number] [place] [address] Feb, [facility] [address] [id number] [place] [address] Feb, [facility] [address] [id number] [place] [address] Feb, [facility] [address] [id number] [place] [address] Feb, [facility] [address] [id number] [place] [address] Dec, [facility] [address] [id number] [place] [address] Dec, [facility] [address] [id number] [place] [address] 29 Nov, 2013 [facility] [address] [id number] [place] [address] 29 Nov, 2013 [facility] [address] [id number] [place] [address] 29 Nov, 2013 [facility] [address] [id number] [place] [address] 29 Nov, 2013 [facility] [address] [facility] [id number] [place] [address] 17 Nov, 2013 [facility] [address] [facility] [id number] [place] [address] Nov, [facility] [address] [id number] [place] [address] Nov, [facility] [address] [id number] [place] [address] Nov, [facility] [address] [facility] [id number] [place] [address] Aug, [facility] [address] [id number] [place] [address] Aug, [facility] [address] [id number] [place] [address] Aug, [facility] [address] [id number] [place] [address] Aug, [facility] [address] [id number] [place] [address] July, [facility] [address] [id number] [place] [address] July, [facility] [address] [id number] [place] [address] Jun, [facility] [address] [id number] [place] [address] Jun, [facility] [address] [id number] [place] [address] Jun, [facility] [address] [id number] [place] [address] Jun, [facility] [address] [id number] [place] [address] May, [facility] [address] [id number] [place] [address] May, [facility] [address] [id number] [place] [address] Apr, [facility] [address] [id number] [place] [address] Apr, [facility] [address] [id number] [place] [address] Mar, [facility] [address] [id number] [place] [address] Mar, [facility] [address] [id number] [place] [address] Mar, [facility] [address] [id number] [place] [address] Mar, [facility] [address] [id number] [place] [address] Feb, [facility] [address] [place] [id number] [place] [address] Feb, [facility] [address] [place] [id number] [place] [address] Jan, [facility] [address] [id number] [place] [address] Jan, [facility] [address] [place] [id number] [place] [address] Dec, [facility] [address] [id number] [place] [address] Dec, [facility] [address] [id number] [place] [address] Dec, [facility] [address] [id number] [place] [address] Dec, [facility] [address] [place] [id number] [place] [address] Nov, [facility] [address] [id number] [place] [address] Sep, [facility] [address] [id number] [place] [address] Sep, [facility] [address] [id number] [place] [address] Aug, [facility] [address] [id number] [place] [address] July, [facility] [address] [id number] [place] [address] Jun, [facility] [address] [id number] [place] [address] May, [facility] [address] [id number] [place] [address] May, [facility] [address] [id number] [place] [address] May, [facility] [address] [id number] [place] [address] May, [facility] [address] [id number] [place] [address] May, [facility] [address] [id number] [place] [address] Feb, [facility] [address] [id number] [place] [address] Feb, [facility] [address] [id number] [place] [address] Jan, [facility] [address] [id number] [place] [address] Jan, [facility] [address] [id number] [place] [address] Jan, [facility] [address] [id number] [place] [address] Jan, [facility] [address] [id number] [place] [address] Jan, [facility] [address] [id number] [place] [address] Jan, [facility] [address] [id number] [place] [address] 18 Dec, 2011 [facility] [address] [id number] [place] [address] Dec, [facility] [address] [id number] [place] [address] Dec, [facility] [address] [id number] [place] [address] Dec, [facility] [address] [id number] [place] [address] Dec, [facility] [address] [id number] [place] [address] Nov, [facility] [address] [id number] [place] [address] Nov, [facility] [address] [id number] [place] [address] Nov, [facility] [address] [id number] [place] [address] Sep, [facility] [address] [id number] [place] [address] Aug, [facility] [address] [id number] [place] [address] Aug, [facility] [address] [id number] [place] [address] May, [facility] [address] [id number] [place] [address] Apr, [facility] [address] [id number] [place] [address] Mar, [facility] [address] [id number] [place] [address] Mar, [facility] [address] [id number] [place] [address] Dec, [facility] [address] [id number] [place] [address] Sep, [facility] [address] [id number] [place] [address] 2010 [facility] [id number] [place] [address] 2010 [facility] [address] [id number] [place] [address] 11 Jan, 2010 [facility] [address] [id number] [place] [address] 08 Jan, 2010 [facility] [address] [id number] [place] [address] 10 Nov, 2009 [facility] [address] [id number] [place] [address] 15 Feb, 2009 [facility] [address] [id number] [place] [address] 15 Feb, 2009 [facility] [address] [id number] [place] [address] 16 Jan, 2009 [facility] [address] [id number] [place] [address] 16 Jan, 2009 [facility] [id number] [place] [address] Dec, [facility] [id number] [place] [address] 13 Dec, 2008 [facility] [id number] [place] [address] 15 Nov, 2008 [facility] [id number] [place] [address] 17 Oct, 2008 [facility] [id number] [place] [address] Sep, [facility] [id number] [place] [address] Aug, IMMUNIZATIONS No Known Immunizations SOCIAL HISTORY Never Assessed REASON FOR VISIT PLAN OF CARE VITAL SIGNS Height 71 in 2013-07-15 Weight 277.9 lbs 2013-07-15 Temperature 97.3 degrees Fahrenheit 2013-07-15 Heart Rate 80 bpm 2013-07-15 Respiratory Rate 18 2013-07-15 Blood pressure systolic 134 mmHg 2013-07-15 Blood pressure diastolic 70 mmHg 2013-07-15 MEDICATIONS No Known Medications RESULTS No Results PROCEDURES Procedure Date Ordered Result Body Site GLYCATED HEMOGLOBIN TEST July 15, 2013 INSTRUCTIONS MEDICATIONS ADMINISTERED No Known Medications MEDICAL [...]
--- OUTSIDE RECORDS SUMMARY | 2019-05-19 20:57 | XMS REPORT ---
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 Active 810026107 Problem Diabetes type 2, controlled E11.9 Ac tive 28179585 Problem Other chronic pain G89.29 Active 8 5670983 Problem Other elevated white blood cell (WBC) count D72.82 8 Active 940562368 Problem Type 2 diabetes mellitus with hyperglycemia E11.65 Active 781354814 Problem [facility] current use of insulin Z79.4 Active 199588075 Problem Controlled type 2 diabetes m ellitus without complication, without long- term current use of insulin E11.9 Active 564773346 Problem Type 2 diabetes mellitus without complications E11 .9 Active [id number] ALLERGIES No Information ENCOUNTERS Encounter Location Date Diagnosis [place] [address] [place] [address] [id number] [address] [place] [address] Oct, [facility] [address] [id number] [address] [place] [address] July, [facility] [address] [facility] [id number] [address] [place] [address] May, Type 2 diabetes mellitus wit h other circulatory complications E11.59 and Viral bronchitis J20.8 [facility] [address] [facility] [id number] [address] [place] [address] May, Diabetes type 2, controlled E11.9 [facility] [address] [facility] [id number] [address] [place] [address] May, [facility] [address] [id number] [address] [place] [address] May, Type 2 diabetes mellitus wit h other circulatory complications E11.59 and Viral bronchitis J20.8 [facility] [address] [facility] [id number] [address] [place] [address] Apr, [facility] [address] [facility] [id number] [address] [place] [address] Feb, Type 2 diabetes mellitus wit h hyperglycemia E11.65 [place] [address] [facility] [id number] [address] [place] [address] Jan, Type 2 diabetes mellitus wit h other circulatory complications E11.59 [place] [address] [facility] [id number] [address] [place] [address] Nov, [place] [address] [facility] [id number] [address] [place] [address] Oct, Other elevated white blood c ell (WBC) count D72.828 and Type 2 diabetes mellitus with other circulatory complications E11.59 [facility] [address] [facility] [id number] [address] [place] [address] Sep, [place] [address] [facility] [id number] [address] [place] [address] Sep, Diabetes type 2, controlled E11.9 [place] [address] [facility] [id number] [address] [place] [address] Aug, Type 2 diabetes mellitus wit h hyperglycemia E11.65 [place] [address] [facility] [id number] [address] [place] [address] July, [facility] [address] [facility] [id number] [address] [place] [address] Jun, Diabetes type 2, controlled E11.9 ; Other chronic pain G89.29 ; Pain in left knee M25.562 and Pain in right knee M25.561 [place] [address] [facility] [id number] [address] [place] [address] May, [facility] [address] [facility] [id number] [address] [place] [address] Feb, Other viral agents as the ca use of diseases classified elsewhere B97.89 and Acute upper respiratory infection, unspecified J06.9 [facility] [address] [id number] [address] [place] [address] Feb, [facility] [address] [facility] [id number] [address] [place] [address] Feb, Type 2 diabetes mellitus wit hout complications E11.9 and [facility] current use of insulin Z79.4 [place] [address] [id number] [address] [place] [address] Dec, [place] [address] [id number] [address] [place] [address] Dec, [place] [address] [facility] [id number] [address] [place] [address] Nov, Type 2 diabetes mellitus wit hout complications E11.9 and [facility] current use of insulin Z79.4 [place] [address] [id number] [address] [place] [address] Nov, [place] [address] [facility] [id number] [address] [place] [address] Nov, Controlled type 2 diabetes m ellitus without complication, without long-term current use of insulin E11.9 [place] [address] [facility] [id number] [address] [place] [address] Nov, Controlled type 2 diabetes m ellitus without complication, without long-term current use of insulin E11.9 [place] [address] [id number] [address] [place] [address] Nov, Type 2 diabetes mellitus wit h other circulatory complications E11.59 [facility] [address] [facility] [id number] [address] [place] [address] Oct, Type 2 diabetes mellitus wit h hyperglycemia E11.65 [place] [address] [facility] [id number] [address] [place] [address] Oct, [facility] [address] [id number] [address] [place] [address] Oct, [facility] [address] [id number] [address] [place] [address] Oct, Type 2 diabetes mellitus wit hout complications E11.9 [facility] [address] [id number] [address] [place] [address] Sep, Type 2 diabetes mellitus wit h hyperglycemia E11.65 [facility] [address] [id number] [address] [place] [address] Sep, Type 2 diabetes mellitus wit h other circulatory complications E11.59 [facility] [address] [id number] [address] [place] [address] Aug, [facility] [address] [facility] [id number] [address] [place] [address] July, Controlled type 2 diabetes m ellitus without complication, without long-term current use of insulin E11.9 [facility] [address] [id number] [address] [place] [address] May, [facility] [address] [id number] [address] [place] [address] Feb, Controlled type 2 diabetes m ellitus without complication, without long-term current use of insulin E11.9 [facility] [address] [id number] [address] [place] [address] Jan, Controlled type 2 diabetes m ellitus without complication, without long-term current use of insulin E11.9 [facility] [address] [id number] [address] [place] [address] Jan, Type 2 diabetes mellitus wit h hyperglycemia E11.65 and 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 [facility] [address] [id number] [address] [place] [address] Nov, Diabetes type 2, controlled E11.9 [facility] [address] [id number] [address] [place] [address] Aug, Type 2 diabetes mellitus wit h other circulatory complications E11.59 and Hypertension, essential I10 [facility] [address] [id number] [address] [place] [address] July, Type 2 diabetes mellitus wit h hyperglycemia E11.65 and Hypertension, benign I10 [facility] [address] [id number] [address] [place] [address] May, Type 2 diabetes mellitus wit h other circulatory complications E11.59 [facility] [address] [id number] [address] [place] [address] Apr, Diabetes type 2, controlled E11.9 [facility] [address] [facility] [id number] [address] [place] [address] Jan, Type 2 diabetes mellitus wit h other circulatory complications E11.59 [facility] [address] [id number] [address] [place] [address] Dec, Type 2 diabetes mellitus wit h other circulatory complications E11.59 [facility] [address] [id number] [address] [place] [address] Aug, Diabetes 250.00 [facility] [address] [id number] [address] [place] [address] July, Diabetes 250.00 [facility] [address] [id number] [address] [place] [address] Jun, [facility] [address] [id number] [address] [place] [address] Jun, [facility] [address] [id number] [address] [place] [address] Jun, [facility] [address] [id number] [address] [place] [address] 14 Jun, 2014 [facility] [address] [id number] [address] [place] [address] Jun, [facility] [address] [id number] [address] [place] [address] May, [facility] [address] [id number] [address] [place] [address], [place] [address] May, [facility] [address] [id number] [address] [place] [address], [place] [address] Apr, [facility] [address] [id number] [address] [place] [address], [place] [address] Apr, [facility] [address] [id number] [address] [place] [address], [place] [address] Mar, [facility] [address] [id number] [address] [place] [address], [place] [address] Mar, [facility] [address] [id number] [address] [place] [address], [place] [address] Feb, [facility] [address] [id number] [address] [place] [address], [place] [address] Feb, [facility] [address] [id number] [address] [place] [address], [place] [address] Feb, [facility] [address] [id number] [address] [place] [address], [place] [address] Feb, [facility] [address] [id number] [address] [place] [address], [place] [address] Feb, [facility] [address] [id number] [address] [place] [address], [place] [address] Feb, [facility] [address] [id number] [address] [place] [address], [place] [address] Dec, [facility] [address] [id number] [address] [place] [address], [place] [address] Dec, [facility] [address] [id number] [address] [place] [address], [place] [address] Nov, [facility] [address] [id number] [address] [place] [address], [place] [address] 29 Nov, 2013 [facility] [address] [id number] [facility] [place] [address] 29 Nov, 2013 [facility] [address] [id number] [address] [place] [address], [place] [address] 29 Nov, 2013 [facility] [address] [id number] [address] [place] [address], [place] [address] 17 Nov, 2013 [facility] [address] [id number] [address] [place] [address], [place] [address] 17 Nov, 2013 [facility] [address] [id number] [address] [place] [address], [place] [address] Nov, [facility] [address] [id number] [address] [place] [address], [place] [address] Nov, [facility] [address] [id number] [address] [place] [address], [place] [address] Aug, [facility] [address] [id number] [address] [place] [address], [place] [address] Aug, [facility] [address] [id number] [address] [place] [address], [place] [address] Aug, [facility] [address] [id number] [address] [place] [address], [place] [address] Aug, [facility] [address] [id number] [address] [place] [address], [place] [address] July, [facility] [address] [id number] [address] [place] [address], [place] [address] July, [facility] [address] [id number] [address] [place] [address], [place] [address] Jun, [facility] [address] [id number] [address] [place] [address], [place] [address] Jun, [facility] [address] [id number] [address] [place] [address], [place] [address] Jun, [facility] [address] [id number] [address] [place] [address], [place] [address] Jun, [facility] [address] [id number] [address] [place] [address], [place] [address] May, [facility] [address] [id number] [address] [place] [address], [place] [address] May, [facility] [address] [id number] [address] [place] [address], [place] [address] Apr, [facility] [address] [id number] [address] [place] [address], [place] [address] Apr, [facility] [address] [id number] [address] [place] [address], [place] [address] Mar, [facility] [address] [id number] [address] [place] [address], [place] [address] Mar, [facility] [address] [id number] [address] [place] [address], [place] [address] Mar, [facility] [address] [id number] [address] [place] [address], [place] [address] Mar, [facility] [address] [id number] [address] [place] [address], [place] [address] Feb, [facility] [address] [id number] [address] [place] [address], [place] [address] Feb, [facility] [address] [id number] [address] [place] [address], [place] [address] Jan, [facility] [address] [id number] [address] [place] [address], [place] [address] Jan, [facility] [address] [id number] [address] [place] [address], [place] [address] Dec, [facility] [address] [id number] [address] [place] [address], [place] [address] Dec, [facility] [address] [id number] [address] [place] [address], [place] [address] Dec, [facility] [address] [id number] [address] [place] [address], [place] [address] Dec, [facility] [address] [id number] [address] [place] [address], [place] [address] Nov, [facility] [address] [id number] [address] [place] [address], [place] [address] Sep, [facility] [address] [id number] [address] [place] [address], [place] [address] Sep, [facility] [address] [id number] [address] [place] [address], [place] [address] Aug, [facility] [address] [id number] [address] [place] [address], [place] [address] July, [facility] [address] [id number] [address] [place] [address], [place] [address] Jun, [facility] [address] [id number] [address] [place] [address], [place] [address] May, [facility] [address] [id number] [address] [place] [address], [place] [address] May, [facility] [address] [id number] [address] [place] [address], [place] [address] May, [facility] [address] [id number] [address] [place] [address], [place] [address] May, [facility] [address] [id number] [address] [place] [address], [place] [address] May, [facility] [address] [id number] [address] [place] [address], [place] [address] Feb, [facility] [address] [id number] [address] [place] [address], [place] [address] Feb, [facility] [address] [id number] [address] [place] [address], [place] [address] Jan, [facility] [address] [id number] [address] [place] [address], [place] [address] Jan, [facility] [address] [id number] [address] [place] [address], [place] [address] Jan, [facility] [address] [id number] [address] [place] [address], [place] [address] Jan, [facility] [address] [id number] [address] [place] [address], [place] [address] Jan, [facility] [address] [id number] [address] [place] [address], [place] [address] Jan, [facility] [address] [id number] [address] [place] [address], [place] [address] Dec, [facility] [address] [id number] [address] [place] [address], [place] [address] Dec, [facility] [address] [id number] [address] [place] [address], [place] [address] Dec, [facility] [address] [id number] [address] [place] [address] Dec, [facility] [address] [id number] [address] [place] [address], [place] [address] Dec, [facility] [address] [id number] [address] [place] [address] 26 Nov, 2011 [facility] [address] [id number] [address] [place] [address] 18 Nov, 2011 [facility] [address] [id number] [address] [place] [address] 13 Nov, 2011 [facility] [address] [id number] [address] [place] [address] Sep, [facility] [address] [id number] [address] [place] [address] Aug, [facility] [address] [id number] [address] [place] [address] Aug, [facility] [address] [id number] [address] [place] [address] May, [facility] [address] [id number] [address] [place] [address], [place] [address] Apr, [facility] [address] [id number] [address] [place] [address], [place] [address] Mar, [facility] [address] [id number] [address] [place] [address], [place] [address] Mar, [facility] [address] [id number] [address] [place] [address], [place] [address] Dec, [facility] [address] [id number] [address] [place] [address], [place] [address] Sep, [facility] [address] [id number] [address] [place] [address], [place] [address] 2010 [facility] [address] [id number] [address] [place] [address], [place] [address] 2010 [facility] [address] [id number] [address] [place] [address], [place] [address] 11 Jan, 2010 [facility] [address] [id number] [address] [place] [address], [place] [address] 08 Jan, 2010 [facility] [address] [id number] [address] [place] [address], [place] [address] 10 Nov, 2009 [facility] [address] [id number] [address] [place] [address], [place] [address] 15 Feb, 2009 [facility] [address] [id number] [address] [place] [address] 15 Feb, 2009 [facility] [address] [id number] [address] [place] [address], [place] [address] 16 Jan, 2009 [facility] [address] [id number] [address] [place] [address], [place] [address] 16 Jan, 2009 [facility] [address] [id number] [address] [place] [address], [place] [address] 13 Dec, 2008 [facility] [address] [facility] [id number] [address] [place] [address] Dec, [facility] [address] [facility] [id number] [address] [place] [address] 15 Nov, 2008 [facility] [address] [facility] [id number] [address] [place] [address] Oct, [facility] [address] [facility] [id number] [address] [place] [id number] Sep, [facility] [address] [facility] [id number] [address] [place] [id number] Aug, IMMUNIZATIONS No Known Immunizations SOCIAL HISTORY Never Assessed REASON FOR VISIT PLAN OF CARE VITAL SIGNS Height 71 in 2013-11-15 Weight 274.6 lbs 2013-11-15 Temperature 97.8 degrees Fahrenheit 2013-11-15 Heart Rate 80 bpm 2013-11-15 Respiratory Rate 18 2013-11-15 Blood pressure systolic 148 mmHg 2013-11-15 Blood pressure diastolic 80 mmHg 2013-11-15 MEDICATIONS Unknown Medications RESULTS No Results PROCEDURES Procedure Date Ordered Result Body Site GLYCATED HEMOGLOBIN TEST Nov 15, 2013 INSTRUCTIONS MEDICATIONS ADMINISTERED No Known [...] replacement 2018 Hospitalization History surgeries Hospitalization History pneumonia-[facility] 05/2018
--- OUTSIDE RECORDS SUMMARY | 2019-05-19 20:57 | XMS REPORT ---
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 790810824 Problem 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 Active 554719350 Problem Controlled type 2 diabetes m ellitus without complication, without long- term current use of insulin E11.9 Active 173333437 Problem Type 2 diabetes mellitus without complications E11 .9 Active 013198018 Problem Other chronic pain G89.29 Active 8 [id number] ALLERGIES No Information ENCOUNTERS Encounter Location Date Diagnosis [place] [address] [address] Dec, Type 2 diabetes mellitus without complic ations E11.9 ; Encounter for immunization Z23 and intermediate (current) use of insulin Z79.4 [place] [address] [address] Oct, [place] [address] [address] July, [place] [address] [address] May, Type 2 diabetes mellitus with other circ ulatory complications E11.59 and Viral bronchitis J20.8 [place] [address] [address] May, Diabetes type 2, controlled E11.9 [place] [address] [address] May, [place] [address] [address] May, Type 2 diabetes mellitus with other circ ulatory complications E11.59 and Viral bronchitis J20.8 [place] [address] [address] Apr, [place] [address] [address] Feb, Type 2 diabetes mellitus with hyperglyce toshia E11.65 [place] [address] [address] Jan, Type 2 diabetes mellitus with other circ ulatory complications E11.59 [place] [address] [address] Nov, [place] [address] [address] Oct, Other elevated white blood cell (WBC) co unt D72.828 and Type 2 diabetes mellitus with other circulatory complications E11.59 [place] [address] [address] Sep, [place] [address] [address] Sep, Diabetes type 2, controlled E11.9 [place] [address] [address] Aug, Type 2 diabetes mellitus with hyperglyce toshia E11.65 [place] [address] [address] July, [address] [address] Jun, Diabetes type 2, controlled E11.9 ; Othe r chronic pain G89.29 ; Pain in left knee M25.562 and Pain in right knee M25.561 [place] [address] [address] May, [place] [address] [address] Feb, Other viral agents as the cause of disea ses classified elsewhere B97.89 and Acute upper respiratory infection, unspecified J06.9 [place] [address] [address] Feb, [place] [address] [address] Feb, Type 2 diabetes mellitus without complic ations E11.9 and 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 [place] [address] [address] Dec, [place] [address] [address] Dec, [place] [address] [address] Nov, Type 2 diabetes mellitus without complic ations E11.9 and intermediate current use of insulin Z79.4 [place] [address] [address] Nov, [place] [address] [address] Nov, Controlled type 2 diabetes mellitus with out complication, without long-term current use of insulin E11.9 [place] [address] [address] Nov, Controlled type 2 diabetes mellitus with out complication, without long-term current use of insulin E11.9 [place] [address] [address] Nov, Type 2 diabetes mellitus with other circ ulatory complications E11.59 [place] [address] [address] Oct, Type 2 diabetes mellitus with hyperglyce toshia E11.65 [facility] [address] [place] [id number] [place] [address] Oct, [facility] [address] [place] [id number] [place] [address] Oct, [facility] [address] [place] [id number] [place] [address] Oct, Type 2 diabetes mellitus without complic ations E11.9 [facility] [address] [place] [id number] [place] [address] Sep, Type 2 diabetes mellitus with hyperglyce toshia E11.65 [facility] [address] [place] [id number] [place] [address] Sep, Type 2 diabetes mellitus with other circ ulatory complications E11.59 [facility] [address] [place] [id number] [place] [address] Aug, [facility] [address] [address] July, Controlled type 2 diabetes mellitus with out complication, without long-term current use of insulin E11.9 [facility] [address] [place] [id number] [place] [address] May, [facility] [address] [place] [id number] [place] [address] Feb, Controlled type 2 diabetes mellitus with out complication, without long-term current use of insulin E11.9 [facility] [address] [place] [id number] [place] [address] Jan, Controlled type 2 diabetes mellitus with out complication, without long-term current use of insulin E11.9 [facility] [address] [place] [id number] [place] [address] Jan, Type 2 diabetes mellitus with hyperglyce toshia E11.65 and 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 [facility] [address] [place] [id number] [place] [address] Nov, Diabetes type 2, controlled E11.9 [facility] [address] [address] 17 Aug, 2015 Type 2 diabetes mellitus with other circ ulatory complications E11.59 and Hypertension, essential I10 [facility] [address] [address] July, Type 2 diabetes mellitus with hyperglyce toshia E11.65 and Hypertension, benign I10 [facility] [address] [address] May, Type 2 diabetes mellitus with other circ ulatory complications E11.59 [facility] [address] [address] Apr, Diabetes type 2, controlled E11.9 [place] [address] [address] Jan, Type 2 diabetes mellitus with other circ ulatory complications E11.59 [place] [address] [address] Dec, Type 2 diabetes mellitus with other circ ulatory complications E11.59 [facility] [address] [address] Aug, Diabetes 250.00 [place] [address] [address] July, Diabetes 250.00 [facility] [address] [address] Jun, [facility] [address] [address] Jun, [facility] [address] [address] Jun, [facility] [address] [address] 14 Jun, 2014 [facility] [address] [address] Jun, [facility] [address] [address] May, [facility] [address] [id number] [place] [address] May, [facility] [address] [id number] [place] [address] Apr, [facility] [address] [id number] [place] [address] Apr, [facility] [address] [id number] [place] [address] Mar, [facility] [address] [id number] [place] [address] Mar, [facility] [address] [id number] [place] [address] Feb, [facility] [address] [id number] [place] [address] Feb, [facility] [address] [id number] [place] [address] Feb, [facility] [address] [id number] [place] [address] Feb, [facility] [address] [id number] [place] [address] Feb, [facility] [address] [id number] [place] [address] Feb, [facility] [address] [id number] [place] [address] Dec, [facility] [address] [id number] [place] [address] Dec, [facility] [address] [id number] [place] [address] 29 Nov, 2013 [facility] [address] [id number] [place] [address] 29 Nov, 2013 [facility] [address] [id number] [place] [address] 29 Nov, 2013 [facility] [address] [id number] [place] [address] 29 Nov, 2013 [facility] [address] [facility] [id number] [place] [address] 17 Nov, 2013 [facility] [address] [facility] [id number] [place] [address] Nov, [facility] [address] [id number] [place] [address] Nov, [facility] [address] [id number] [place] [address] Nov, [facility] [address] [facility] [id number] [place] [address] Aug, [facility] [address] [id number] [place] [address] Aug, [facility] [address] [id number] [place] [address] Aug, [facility] [address] [id number] [place] [address] Aug, [facility] [address] [id number] [place] [address] July, [facility] [address] [id number] [place] [address] July, [facility] [address] [id number] [place] [address] Jun, [facility] [address] [id number] [place] [address] Jun, [facility] [address] [id number] [place] [address] Jun, [facility] [address] [id number] [place] [address] Jun, [facility] [address] [id number] [place] [address] May, [facility] [address] [id number] [place] [address] May, [facility] [address] [id number] [place] [address] Apr, [facility] [address] [id number] [place] [address] Apr, [facility] [address] [id number] [place] [address] Mar, [facility] [address] [id number] [place] [address] Mar, [facility] [address] [id number] [place] [address] Mar, [facility] [address] [id number] [place] [address] Mar, [facility] [address] [id number] [place] [address] Feb, [facility] [address] [place] [id number] [place] [address] Feb, [facility] [address] [place] [id number] [place] [address] Jan, [facility] [address] [id number] [place] [address] Jan, [facility] [address] [place] [id number] [place] [address] Dec, [facility] [address] [id number] [place] [address] Dec, [facility] [address] [id number] [place] [address] Dec, [facility] [address] [id number] [place] [address] Dec, [facility] [address] [place] [id number] [place] [address] Nov, [facility] [address] [id number] [place] [address] Sep, [facility] [address] [id number] [place] [address] Sep, [facility] [address] [id number] [place] [address] Aug, [facility] [address] [id number] [place] [address] July, [facility] [address] [id number] [place] [address] Jun, [facility] [address] [id number] [place] [address] May, [facility] [address] [id number] [place] [address] May, [facility] [address] [id number] [place] [address] May, [facility] [address] [id number] [place] [address] May, [facility] [address] [id number] [place] [address] May, [facility] [address] [id number] [place] [address] Feb, [facility] [address] [id number] [place] [address] Feb, [facility] [address] [id number] [place] [address] Jan, [facility] [address] [id number] [place] [address] Jan, [facility] [address] [id number] [place] [address] Jan, [facility] [address] [id number] [place] [address] Jan, [facility] [address] [id number] [place] [address] Jan, [facility] [address] [id number] [place] [address] Jan, [facility] [address] [id number] [place] [address] 18 Dec, 2011 [facility] [address] [id number] [place] [address] Dec, [facility] [address] [id number] [place] [address] Dec, [facility] [address] [id number] [place] [address] Dec, [facility] [address] [id number] [place] [address] Dec, [facility] [address] [id number] [place] [address] Nov, [facility] [address] [id number] [place] [address] Nov, [facility] [address] [id number] [place] [address] Nov, [facility] [address] [id number] [place] [address] Sep, [facility] [address] [id number] [place] [address] Aug, [facility] [address] [id number] [place] [address] Aug, [facility] [address] [id number] [place] [address] May, [facility] [address] [id number] [place] [address] Apr, [facility] [address] [id number] [place] [address] Mar, [facility] [address] [id number] [place] [address] Mar, [facility] [address] [id number] [place] [address] Dec, [facility] [address] [id number] [place] [address] Sep, [facility] [address] [id number] [place] [address] 2010 [facility] [id number] [place] [address] 2010 [facility] [id number] [place] [address] Jan, [facility] [id number] [place] [address] 08 Jan, 2010 [facility] [id number] [place] [address] 10 Nov, 2009 [facility] [id number] [place] [address] 15 Feb, 2009 [facility] [address] [id number] [place] [address] 15 Feb, 2009 [facility] [id number] [place] [address] 16 Jan, 2009 [facility] [address] [place] [id number] [place] [address] 16 Jan, 2009 [facility] [address] [id number] [place] [address] Dec, [facility] [id number] [place] [address] Dec, [facility] [id number] [place] [address] 15 Nov, 2008 [facility] [id number] [place] [address] Oct, [facility] [id number] [place] [address] Sep, [facility] [id number] [place] [address] Aug, IMMUNIZATIONS No Known Immunizations SOCIAL HISTORY [...] replacement 2017 Hospitalization History surgeries Hospitalization History pneumonia-[facility] 05/2018
--- OUTSIDE RECORDS SUMMARY | 2019-05-19 20:57 | XMS REPORT ---
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 Active 309614865 Problem Diabetes type 2, controlled E11.9 Ac tive 10672579 Problem Type 2 diabetes mellitus with hyperglycemia E11.65 Active 574558253 Problem Other elevated white blood cell (WBC) count D72.82 8 Active 935034572 Problem 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 Active 754493972 Problem 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 Active 093982598 Problem Controlled type 2 diabetes m ellitus without complication, without long- term current use of insulin E11.9 Active 730960291 Problem Type 2 diabetes mellitus without complications E11 .9 Active 166711189 Problem Other chronic pain G89.29 Active 8 [id number] ALLERGIES No Information ENCOUNTERS Encounter Location Date Diagnosis [place] [address] [address] Dec, Type 2 diabetes mellitus without complic ations E11.9 ; Encounter for immunization Z23 and snf (current) use of insulin Z79.4 [place] [address] [address] Oct, [place] [address] [address] July, [place] [address] [address] May, Type 2 diabetes mellitus with other circ ulatory complications E11.59 and Viral bronchitis J20.8 [place] [address] [address] May, Diabetes type 2, controlled E11.9 [place] [address] [address] May, [place] [address] [address] May, Type 2 diabetes mellitus with other circ ulatory complications E11.59 and Viral bronchitis J20.8 [place] [address] [address] Apr, [place] [address] [address] Feb, Type 2 diabetes mellitus with hyperglyce toshia E11.65 [place] [address] [address] Jan, Type 2 diabetes mellitus with other circ ulatory complications E11.59 [place] [address] [address] Nov, [place] [address] [address] Oct, Other elevated white blood cell (WBC) co unt D72.828 and Type 2 diabetes mellitus with other circulatory complications E11.59 [place] [address] [address] Sep, [place] [address] [address] Sep, Diabetes type 2, controlled E11.9 [place] [address] [address] Aug, Type 2 diabetes mellitus with hyperglyce toshia E11.65 [place] [address] [address] July, [address] [address] Jun, Diabetes type 2, controlled E11.9 ; Othe r chronic pain G89.29 ; Pain in left knee M25.562 and Pain in right knee M25.561 [place] [address] [address] May, [place] [address] [address] Feb, Other viral agents as the cause of disea ses classified elsewhere B97.89 and Acute upper respiratory infection, unspecified J06.9 [place] [address] [address] Feb, [place] [address] [address] Feb, Type 2 diabetes mellitus without complic ations E11.9 and 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 [place] [address] [address] Dec, [place] [address] [address] Dec, [place] [address] [address] Nov, Type 2 diabetes mellitus without complic ations E11.9 and snf current use of insulin Z79.4 [place] [address] [address] Nov, [place] [address] [address] Nov, Controlled type 2 diabetes mellitus with out complication, without long-term current use of insulin E11.9 [place] [address] [address] Nov, Controlled type 2 diabetes mellitus with out complication, without long-term current use of insulin E11.9 [place] [address] [address] Nov, Type 2 diabetes mellitus with other circ ulatory complications E11.59 [place] [address] [address] Oct, Type 2 diabetes mellitus with hyperglyce toshia E11.65 [facility] [address] [place] [id number] [place] [address] Oct, [facility] [address] [place] [id number] [place] [address] Oct, [facility] [address] [place] [id number] [place] [address] Oct, Type 2 diabetes mellitus without complic ations E11.9 [facility] [address] [place] [id number] [place] [address] Sep, Type 2 diabetes mellitus with hyperglyce toshia E11.65 [facility] [address] [place] [id number] [place] [address] Sep, Type 2 diabetes mellitus with other circ ulatory complications E11.59 [facility] [address] [place] [id number] [place] [address] Aug, [facility] [address] [address] July, Controlled type 2 diabetes mellitus with out complication, without long-term current use of insulin E11.9 [facility] [address] [place] [id number] [place] [address] May, [facility] [address] [place] [id number] [place] [address] Feb, Controlled type 2 diabetes mellitus with out complication, without long-term current use of insulin E11.9 [facility] [address] [place] [id number] [place] [address] Jan, Controlled type 2 diabetes mellitus with out complication, without long-term current use of insulin E11.9 [facility] [address] [place] [id number] [place] [address] Jan, Type 2 diabetes mellitus with hyperglyce toshia E11.65 and 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 [facility] [address] [place] [id number] [place] [address] Nov, Diabetes type 2, controlled E11.9 [facility] [address] [address] 17 Aug, 2015 Type 2 diabetes mellitus with other circ ulatory complications E11.59 and Hypertension, essential I10 [facility] [address] [address] July, Type 2 diabetes mellitus with hyperglyce toshia E11.65 and Hypertension, benign I10 [facility] [address] [address] May, Type 2 diabetes mellitus with other circ ulatory complications E11.59 [facility] [address] [address] Apr, Diabetes type 2, controlled E11.9 [place] [address] [address] Jan, Type 2 diabetes mellitus with other circ ulatory complications E11.59 [place] [address] [address] Dec, Type 2 diabetes mellitus with other circ ulatory complications E11.59 [facility] [address] [address] Aug, Diabetes 250.00 [place] [address] [address] July, Diabetes 250.00 [facility] [address] [address] Jun, [facility] [address] [address] Jun, [facility] [address] [address] Jun, [facility] [address] [address] 14 Jun, 2014 [facility] [address] [address] Jun, [facility] [address] [address] May, [facility] [address] [id number] [place] [address] May, [facility] [address] [id number] [place] [address] Apr, [facility] [address] [id number] [place] [address] Apr, [facility] [address] [id number] [place] [address] Mar, [facility] [address] [id number] [place] [address] Mar, [facility] [address] [id number] [place] [address] Feb, [facility] [address] [id number] [place] [address] Feb, [facility] [address] [id number] [place] [address] Feb, [facility] [address] [id number] [place] [address] Feb, [facility] [address] [id number] [place] [address] Feb, [facility] [address] [id number] [place] [address] Feb, [facility] [address] [id number] [place] [address] Dec, [facility] [address] [id number] [place] [address] Dec, [facility] [address] [id number] [place] [address] 29 Nov, 2013 [facility] [address] [id number] [place] [address] 29 Nov, 2013 [facility] [address] [id number] [place] [address] 29 Nov, 2013 [facility] [address] [id number] [place] [address] 29 Nov, 2013 [facility] [address] [facility] [id number] [place] [address] 17 Nov, 2013 [facility] [address] [facility] [id number] [place] [address] Nov, [facility] [address] [id number] [place] [address] Nov, [facility] [address] [id number] [place] [address] Nov, [facility] [address] [facility] [id number] [place] [address] Aug, [facility] [address] [id number] [place] [address] Aug, [facility] [address] [id number] [place] [address] Aug, [facility] [address] [id number] [place] [address] Aug, [facility] [address] [id number] [place] [address] July, [facility] [address] [id number] [place] [address] July, [facility] [address] [id number] [place] [address] Jun, [facility] [address] [id number] [place] [address] Jun, [facility] [address] [id number] [place] [address] Jun, [facility] [address] [id number] [place] [address] Jun, [facility] [address] [id number] [place] [address] May, [facility] [address] [id number] [place] [address] May, [facility] [address] [id number] [place] [address] Apr, [facility] [address] [id number] [place] [address] Apr, [facility] [address] [id number] [place] [address] Mar, [facility] [address] [id number] [place] [address] Mar, [facility] [address] [id number] [place] [address] Mar, [facility] [address] [id number] [place] [address] Mar, [facility] [address] [id number] [place] [address] Feb, [facility] [address] [place] [id number] [place] [address] Feb, [facility] [address] [place] [id number] [place] [address] Jan, [facility] [address] [id number] [place] [address] Jan, [facility] [address] [place] [id number] [place] [address] Dec, [facility] [address] [id number] [place] [address] Dec, [facility] [address] [id number] [place] [address] Dec, [facility] [address] [id number] [place] [address] Dec, [facility] [address] [place] [id number] [place] [address] Nov, [facility] [address] [id number] [place] [address] Sep, [facility] [address] [id number] [place] [address] Sep, [facility] [address] [id number] [place] [address] Aug, [facility] [address] [id number] [place] [address] July, [facility] [address] [id number] [place] [address] Jun, [facility] [address] [id number] [place] [address] May, [facility] [address] [id number] [place] [address] May, [facility] [address] [id number] [place] [address] May, [facility] [address] [id number] [place] [address] May, [facility] [address] [id number] [place] [address] May, [facility] [address] [id number] [place] [address] Feb, [facility] [address] [id number] [place] [address] Feb, [facility] [address] [id number] [place] [address] Jan, [facility] [address] [id number] [place] [address] Jan, [facility] [address] [id number] [place] [address] Jan, [facility] [address] [id number] [place] [address] Jan, [facility] [address] [id number] [place] [address] Jan, [facility] [address] [id number] [place] [address] Jan, [facility] [address] [id number] [place] [address] 18 Dec, 2011 [facility] [address] [id number] [place] [address] Dec, [facility] [address] [id number] [place] [address] Dec, [facility] [address] [id number] [place] [address] Dec, [facility] [address] [id number] [place] [address] Dec, [facility] [address] [id number] [place] [address] Nov, [facility] [address] [id number] [place] [address] Nov, [facility] [address] [id number] [place] [address] Nov, [facility] [address] [id number] [place] [address] Sep, [facility] [address] [id number] [place] [address] Aug, [facility] [address] [id number] [place] [address] Aug, [facility] [address] [id number] [place] [address] May, [facility] [address] [id number] [place] [address] Apr, [facility] [address] [id number] [place] [address] Mar, [facility] [address] [id number] [place] [address] Mar, [facility] [address] [id number] [place] [address] Dec, [facility] [address] [id number] [place] [address] Sep, [facility] [id number] [place] [address] 2010 [facility] [address] [id number] [place] [address] 2010 [facility] [address] [id number] [place] [address] 11 Jan, 2010 [facility] [id number] [place] [address] 08 Jan, 2010 [facility] [id number] [place] [address] 10 Nov, 2009 [facility] [address] [address] 15 Feb, 2009 [facility] [address] [address] 15 Feb, 2009 [facility] [address] [address] 16 Jan, 2009 [facility] [address] [address] 16 Jan, 2009 [facility] [address] [address] Dec, [facility] [address] [address] Dec, [facility] [address] [address] 15 Nov, 2008 [facility] [id number] [place] [address] Oct, [facility] [address] [address] Sep, [facility] [address] [address] Aug, IMMUNIZATIONS No Known Immunizations SOCIAL HISTORY Never Assessed REASON FOR VISIT PLAN OF CARE VITAL SIGNS MEDICATIONS Medication Instructions Dosage Frequency Start Date End Date Duration S tatus Ventolin HFA 108 (90 Base) MCG/ACT Inhalation every 6 hrs 2 puffs a s needed 6h May, Active RESULTS No Results PROCEDURES No Known [...] replacement 2018 Hospitalization History surgeries Hospitalization History pneumonia-[facility] 05/2018
--- OUTSIDE RECORDS SUMMARY | 2019-05-19 20:58 | XMS REPORT ---
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 Active 371773658 Problem Diabetes type 2, controlled E11.9 Ac tive 32798688 Problem Other chronic pain G89.29 Active 8 9338581 Problem Other elevated white blood cell (WBC) count D72.82 8 Active 336531298 Problem Type 2 diabetes mellitus with hyperglycemia E11.65 Active 174472653 Problem penitentiary current use of insulin Z79.4 Active 497234555 Problem Controlled type 2 diabetes m ellitus without complication, without long- term current use of insulin E11.9 Active 809754909 Problem Type 2 diabetes mellitus without complications E11 .9 Active [id number] ALLERGIES No Information ENCOUNTERS Encounter Location Date Diagnosis [place] [address] [address] [facility] [id number] [address] [place] [phone] July, [place] [address] [facility] [id number] [address] [place] [address] May, Type 2 diabetes mellitus wit h other circulatory complications E11.59 and Viral bronchitis J20.8 [facility] [address] [facility] [id number] [address] [place] [address] May, Diabetes type 2, controlled E11.9 [facility] [address] [facility] [id number] [address] [place] [address] May, [place] [address] [address] [facility] [id number] [address] [place] [address] 14 May, 2018 Type 2 diabetes mellitus wit h other circulatory complications E11.59 and Viral bronchitis J20.8 [place] [address] [address] [facility] [id number] [address] [place] [address] Apr, [place] [address] [address] [facility] [id number] [address] [place] [address] Feb, Type 2 diabetes mellitus wit h hyperglycemia E11.65 [place] [address] [address] [facility] [id number] [address] [place] [address] Jan, Type 2 diabetes mellitus wit h other circulatory complications E11.59 [place] [address] [address] [facility] [id number] [address] [place] [address] Nov, [place] [address] [address] [facility] [id number] [address] [place] [address] Oct, Other elevated white blood c ell (WBC) count D72.828 and Type 2 diabetes mellitus with other circulatory complications E11.59 [place] [address] [address] [facility] [id number] [address] [place] [address] Sep, [place] [address] [address] [facility] [id number] [address] [place] [address] Sep, Diabetes type 2, controlled E11.9 [place] [address] [address] [facility] [id number] [address] [place] [address] Aug, Type 2 diabetes mellitus wit h hyperglycemia E11.65 [place] [address] [address] [facility] [id number] [address] [place] [address] July, [place] [address] [address] [facility] [id number] [address] [place] [address] Jun, Diabetes type 2, controlled E11.9 ; Other chronic pain G89.29 ; Pain in left knee M25.562 and Pain in right knee M25.561 [place] [address] [address] [facility] [id number] [address] [place] [address] May, [place] [address] [address] [facility] [id number] [address] [place] [phone] Feb, Other viral agents as the ca use of diseases classified elsewhere B97.89 and Acute upper respiratory infection, unspecified J06.9 [facility] [address] [id number] [address] [place] [address] Feb, [facility] [address] [facility] [id number] [address] [place] [address] Feb, Type 2 diabetes mellitus wit hout complications E11.9 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 [facility] [address] [id number] [address] [place] [phone] Dec, [facility] [address] [id number] [address] [place] [phone] Dec, [facility] [address] [facility] [id number] [address] [place] [address] Nov, Type 2 diabetes mellitus wit hout complications E11.9 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 [place] [address] [address] [facility] [id number] [address] [place] [address] Nov, [facility] [address] [id number] [address] [place] [address] Nov, Controlled type 2 diabetes m ellitus without complication, without long-term current use of insulin E11.9 [place] [address] [address] [facility] [id number] [address] [place] [address] Nov, Controlled type 2 diabetes m ellitus without complication, without long-term current use of insulin E11.9 [place] [address] [address] [facility] [id number] [address] [place] [address] Nov, Type 2 diabetes mellitus wit h other circulatory complications E11.59 [facility] [address] [id number] [address] [place] [address] Oct, Type 2 diabetes mellitus wit h hyperglycemia E11.65 [facility] [address] [facility] [id number] [address] [place] [address] Oct, [facility] [address] [facility] [id number] [address] [place] [address] Oct, [facility] [address] [facility] [id number] [address] [place] [address] Oct, Type 2 diabetes mellitus wit hout complications E11.9 [facility] [address] [facility] [id number] [address] [place] [address] Sep, Type 2 diabetes mellitus wit h hyperglycemia E11.65 [facility] [address] [facility] [id number] [address] [place] [address] Sep, Type 2 diabetes mellitus wit h other circulatory complications E11.59 [facility] [address] [facility] [id number] [address] [place] [address] Aug, [place] [address] [address] [facility] [id number] [address] [place] [address] July, Controlled type 2 diabetes m ellitus without complication, without long-term current use of insulin E11.9 [facility] [address] [facility] [id number] [address] [place] [phone] May, [facility] [address] [facility] [id number] [address] [place] [phone] Feb, Controlled type 2 diabetes m ellitus without complication, without long-term current use of insulin E11.9 [facility] [address] [facility] [id number] [address] [place] [address] Jan, Controlled type 2 diabetes m ellitus without complication, without long-term current use of insulin E11.9 [facility] [address] [facility] [id number] [address] [place] [address] Jan, Type 2 diabetes mellitus wit h hyperglycemia E11.65 and penitentiary current use of insulin Z79.4 [facility] [address] [facility] [id number] [address] [place] [address] Nov, Diabetes type 2, controlled E11.9 [facility] [address] [facility] [id number] [address] [place] [address] Aug, Type 2 diabetes mellitus wit h other circulatory complications E11.59 and Hypertension, essential I10 [facility] [address] [id number] [address] [place] [phone] July, Type 2 diabetes mellitus wit h hyperglycemia E11.65 and Hypertension, benign I10 [facility] [address] [id number] [address] [place] [address] May, Type 2 diabetes mellitus wit h other circulatory complications E11.59 [facility] [address] [id number] [address] [place] [address] 03 Apr, 2015 Diabetes type 2, controlled E11.9 [facility] [address] [id number] [address] [place] [phone] Jan, Type 2 diabetes mellitus wit h other circulatory complications E11.59 [facility] [address] [id number] [address] [place] [address] Dec, Type 2 diabetes mellitus wit h other circulatory complications E11.59 [facility] [address] [id number] [address] [place] [address] Aug, Diabetes 250.00 [facility] [address] [id number] [address] [place] [address] July, Diabetes 250.00 [facility] [address] [id number] [address] [place] [address] 30 Jun, 2014 [facility] [address] [id number] [address] [place] [address] Jun, [facility] [address] [id number] [address] [place] [phone] 28 Jun, 2014 [facility] [address] [id number] [address] [place] [id number] 14 Jun, 2014 [facility] [address] [id number] [address] [place] [address] Jun, [facility] [address] [id number] [address] [place] [phone] May, [facility] [address] [id number] [address] [place] [address] May, [facility] [address] [id number] [address] [place] [address], [place] [address] Apr, [facility] [address] [id number] [address] [place] [address], [place] [address] Apr, [facility] [address] [id number] [address] [place] [address], [place] [address] Mar, [facility] [address] [id number] [address] [place] [address], [place] [address] Mar, [facility] [address] [id number] [address] [place] [address], [place] [address] Feb, [facility] [address] [id number] [address] [place] [address], [place] [address] Feb, [facility] [address] [id number] [address] [place] [address], [place] [address] Feb, [facility] [address] [id number] [address] [place] [address], [place] [address] Feb, [facility] [address] [id number] [address] [place] [address], [place] [address] Feb, [facility] [address] [id number] [address] [place] [address], [place] [address] Feb, [facility] [address] [id number] [address] [place] [address], [place] [address] Dec, [facility] [address] [id number] [address] [place] [address], [place] [address] Dec, [facility] [address] [id number] [address] [place] [address], [place] [address] Nov, [facility] [address] [id number] [address] [place] [address], [place] [address] Nov, [facility] [address] [id number] [address] [place] [address], [place] [address] Nov, [facility] [address] [id number] [facility] [place] [address] 29 Nov, 2013 [facility] [address] [id number] [facility] [place] [address] 17 Nov, 2013 [facility] [address] [id number] [address] [place] [address], [place] [address] 17 Nov, 2013 [facility] [address] [id number] [address] [place] [address], [place] [address] Nov, [facility] [address] [id number] [address] [place] [address], [place] [address] Nov, [facility] [address] [id number] [address] [place] [address], [place] [address] Aug, [facility] [address] [id number] [address] [place] [address], [place] [address] Aug, [facility] [address] [id number] [address] [place] [address], [place] [address] Aug, [facility] [address] [id number] [address] [place] [address], [place] [address] Aug, [facility] [address] [id number] [address] [place] [address], [place] [address] July, [facility] [address] [id number] [address] [place] [address], [place] [address] July, [facility] [address] [id number] [address] [place] [address], [place] [address] Jun, [facility] [address] [id number] [address] [place] [address], [place] [address] Jun, [facility] [address] [id number] [address] [place] [address], [place] [address] Jun, [facility] [address] [id number] [address] [place] [address], [place] [address] 15 Jun, 2013 [facility] [address] [id number] [address] [place] [address], [place] [address] May, [facility] [address] [id number] [address] [place] [address], [place] [address] May, [facility] [address] [id number] [address] [place] [address], [place] [address] Apr, [facility] [address] [id number] [address] [place] [address], [place] [address] Apr, [facility] [address] [id number] [address] [place] [address], [place] [address] Mar, [facility] [address] [id number] [address] [place] [address], [place] [address] Mar, [facility] [address] [id number] [address] [place] [address], [place] [address] Mar, [facility] [address] [id number] [address] [place] [address], [place] [address] Mar, [facility] [address] [id number] [address] [place] [address], [place] [address] Feb, [facility] [address] [id number] [address] [place] [address], [place] [address] Feb, [facility] [address] [id number] [address] [place] [address], [place] [address] Jan, [facility] [address] [id number] [address] [place] [address], [place] [address] Jan, [facility] [address] [id number] [address] [place] [address], [place] [address] Dec, [facility] [address] [id number] [address] [place] [address], [place] [address] Dec, [facility] [address] [id number] [address] [place] [address], [place] [address] Dec, [facility] [address] [id number] [address] [place] [address], [place] [address] Dec, [facility] [address] [id number] [address] [place] [address], [place] [address] Nov, [facility] [address] [id number] [address] [place] [address], [place] [address] Sep, [facility] [address] [id number] [address] [place] [address], [place] [address] Sep, [facility] [address] [id number] [address] [place] [address], [place] [address] Aug, [facility] [address] [id number] [address] [place] [address], [place] [address] July, [facility] [address] [id number] [address] [place] [address], [place] [address] Jun, [facility] [address] [id number] [address] [place] [address], [place] [address] May, [facility] [address] [id number] [address] [place] [address], [place] [address] May, [facility] [address] [id number] [address] [place] [address], [place] [address] May, [facility] [address] [id number] [address] [place] [address], [place] [address] May, [facility] [address] [id number] [address] [place] [address], [place] [address] May, [facility] [address] [id number] [address] [place] [address], [place] [address] Feb, [facility] [address] [id number] [address] [place] [address], [place] [address] Feb, [facility] [address] [id number] [address] [place] [address], [place] [address] Jan, [facility] [address] [id number] [address] [place] [address], [place] [address] Jan, [facility] [address] [id number] [address] [place] [address], [place] [address] Jan, [facility] [address] [id number] [address] [place] [address], [place] [address] Jan, [facility] [address] [id number] [address] [place] [address], [place] [address] Jan, [facility] [address] [id number] [address] [place] [address], [place] [address] Jan, [facility] [address] [id number] [address] [place] [address], [place] [address] Dec, [facility] [address] [id number] [address] [place] [address], [place] [address] Dec, [facility] [address] [id number] [address] [place] [address], [place] [address] Dec, [facility] [address] [id number] [address] [place] [address], [place] [address] 18 Dec, 2011 [facility] [address] [id number] [address] [place] [address], [place] [address] Dec, [facility] [address] [id number] [address] [place] [address], [place] [address] 26 Nov, 2011 [facility] [address] [id number] [address] [place] [address] 18 Nov, 2011 [facility] [address] [id number] [address] [place] [address] 13 Nov, 2011 [facility] [address] [id number] [address] [place] [address] Sep, [facility] [address] [id number] [address] [place] [address], [place] [address] Aug, [facility] [address] [id number] [address] [place] [address] Aug, [facility] [address] [id number] [address] [place] [address] May, [facility] [address] [id number] [address] [place] [phone] 29 Apr, 2011 [facility] [address] [id number] [address] [place] [address], [place] [address] Mar, [facility] [address] [id number] [address] [place] [address] Mar, [facility] [address] [id number] [address] [place] [address], [place] [address] Dec, [facility] [address] [id number] [address] [place] [address], [place] [address] Sep, [facility] [address] [id number] [address] [place] [address], [place] [address] 2010 [facility] [address] [id number] [address] [place] [address], [place] [address] 2010 [facility] [address] [id number] [address] [place] [address] 11 Jan, 2010 [facility] [address] [id number] [address] [place] [address], [place] [address] 08 Jan, 2010 [facility] [address] [id number] [address] [place] [address], [place] [address] 10 Nov, 2009 [facility] [address] [id number] [address] [place] [address], [place] [address] 15 Feb, 2009 [facility] [address] [id number] [address] [place] [address], [place] [phone] 15 Feb, 2009 [facility] [address] [id number] [address] [place] [phone] 16 Jan, 2009 [facility] [address] [id number] [address] [place] [phone] 16 Jan, 2009 [facility] [address] [id number] [address] [place] [id number] 13 Dec, 2008 [facility] [address] [id number] [address] [place] [id number] 13 Dec, 2008 [facility] [address] [facility] [id number] [address] [place] [phone] Nov, [facility] [address] [facility] [id number] [address] [place] [phone] Oct, [facility] [address] [facility] [id number] [address] [place] [phone] Sep, [facility] [address] [facility] [id number] [address] [place] [phone] Aug, IMMUNIZATIONS No Known Immunizations SOCIAL HISTORY [...] replacement 2018 Hospitalization History surgeries Hospitalization History pneumonia-[facility] 05/2018
--- OUTSIDE RECORDS SUMMARY | 2019-05-19 20:58 | XMS REPORT ---
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 Active 046733379 Problem Diabetes type 2, controlled E11.9 Ac tive 57416873 Problem Other chronic pain G89.29 Active 8 1687678 Problem Other elevated white blood cell (WBC) count D72.82 8 Active 005589926 Problem Type 2 diabetes mellitus with hyperglycemia E11.65 Active 479193717 Problem half-way current use of insulin Z79.4 Active 658953446 Problem Controlled type 2 diabetes m ellitus without complication, without long- term current use of insulin E11.9 Active 653017967 Problem Type 2 diabetes mellitus without complications E11 .9 Active [id number] ALLERGIES No Information ENCOUNTERS Encounter Location Date Diagnosis [place] [address] [facility] [id number] [address] [place] [address] Oct, [facility] [address] [place] [id number] [address] [place] [address] July, [facility] [address] [facility] [id number] [address] [place] [address] May, Type 2 diabetes mellitus wit h other circulatory complications E11.59 and Viral bronchitis J20.8 [facility] [address] [facility] [id number] [address] [place] [address] May, Diabetes type 2, controlled E11.9 [facility] [address] [facility] [id number] [address] [place] [address] May, [facility] [address] [place] [id number] [address] [place] [address] May, Type 2 diabetes mellitus wit h other circulatory complications E11.59 and Viral bronchitis J20.8 [facility] [address] [facility] [id number] [address] [place] [address] Apr, [facility] [address] [facility] [id number] [address] [place] [address] Feb, Type 2 diabetes mellitus wit h hyperglycemia E11.65 [place] [address] [facility] [id number] [address] [place] [address] Jan, Type 2 diabetes mellitus wit h other circulatory complications E11.59 [place] [address] [facility] [id number] [address] [place] [address] Nov, [place] [address] [address] [facility] [id number] [address] [place] [address] Oct, Other elevated white blood c ell (WBC) count D72.828 and Type 2 diabetes mellitus with other circulatory complications E11.59 [facility] [address] [facility] [id number] [address] [place] [address] Sep, [place] [address] [address] [facility] [id number] [address] [place] [address] Sep, Diabetes type 2, controlled E11.9 [place] [address] [facility] [id number] [address] [place] [address] Aug, Type 2 diabetes mellitus wit h hyperglycemia E11.65 [place] [address] [address] [facility] [id number] [address] [place] [address] July, [facility] [address] [facility] [id number] [address] [place] [address] Jun, Diabetes type 2, controlled E11.9 ; Other chronic pain G89.29 ; Pain in left knee M25.562 and Pain in right knee M25.561 [place] [facility] [id number] [address] [place] [address] May, [facility] [address] [facility] [id number] [address] [place] [address] Feb, Other viral agents as the ca use of diseases classified elsewhere B97.89 and Acute upper respiratory infection, unspecified J06.9 [facility] [address] [id number] [address] [place] [address] Feb, [facility] [address] [facility] [id number] [address] [place] [address] Feb, Type 2 diabetes mellitus wit hout complications E11.9 and half-way current use of insulin Z79.4 [place] [address] [id number] [address] [place] [address] Dec, [place] [address] [id number] [address] [place] [address] Dec, [place] [address] [facility] [id number] [address] [place] [address] Nov, Type 2 diabetes mellitus wit hout complications E11.9 and half-way current use of insulin Z79.4 [place] [address] [id number] [address] [place] [address] Nov, [place] [address] [facility] [id number] [address] [place] [address] Nov, Controlled type 2 diabetes m ellitus without complication, without long-term current use of insulin E11.9 [place] [facility] [id number] [address] [place] [address] Nov, Controlled type 2 diabetes m ellitus without complication, without long-term current use of insulin E11.9 [place] [address] [id number] [address] [place] [address] Nov, Type 2 diabetes mellitus wit h other circulatory complications E11.59 [facility] [address] [facility] [id number] [address] [place] [address] Oct, Type 2 diabetes mellitus wit h hyperglycemia E11.65 [place] [address] [address] [facility] [id number] [address] [place] [address] Oct, [facility] [address] [id number] [address] [place] [address] Oct, [facility] [address] [id number] [address] [place] [address] Oct, Type 2 diabetes mellitus wit hout complications E11.9 [facility] [address] [id number] [address] [place] [address] Sep, Type 2 diabetes mellitus wit h hyperglycemia E11.65 [facility] [address] [id number] [address] [place] [address] Sep, Type 2 diabetes mellitus wit h other circulatory complications E11.59 [facility] [address] [id number] [address] [place] [address] Aug, [facility] [address] [facility] [id number] [address] [place] [address] July, Controlled type 2 diabetes m ellitus without complication, without long-term current use of insulin E11.9 [facility] [address] [id number] [address] [place] [address] May, [facility] [address] [id number] [address] [place] [address] Feb, Controlled type 2 diabetes m ellitus without complication, without long-term current use of insulin E11.9 [facility] [address] [id number] [address] [place] [address] Jan, Controlled type 2 diabetes m ellitus without complication, without long-term current use of insulin E11.9 [facility] [address] [id number] [address] [place] [address] Jan, Type 2 diabetes mellitus wit h hyperglycemia E11.65 and exterminator current use of insulin Z79.4 [facility] [address] [id number] [address] [place] [address] Nov, Diabetes type 2, controlled E11.9 [facility] [address] [id number] [address] [place] [address] Aug, Type 2 diabetes mellitus wit h other circulatory complications E11.59 and Hypertension, essential I10 [facility] [address] [id number] [address] [place] [address] July, Type 2 diabetes mellitus wit h hyperglycemia E11.65 and Hypertension, benign I10 [facility] [address] [id number] [address] [place] [address] May, Type 2 diabetes mellitus wit h other circulatory complications E11.59 [facility] [address] [id number] [address] [place] [address] Apr, Diabetes type 2, controlled E11.9 [facility] [address] [facility] [id number] [address] [place] [address] Jan, Type 2 diabetes mellitus wit h other circulatory complications E11.59 [facility] [address] [id number] [address] [place] [address] Dec, Type 2 diabetes mellitus wit h other circulatory complications E11.59 [facility] [address] [id number] [address] [place] [address] Aug, Diabetes 250.00 [facility] [address] [id number] [address] [place] [address] July, Diabetes 250.00 [facility] [address] [id number] [address] [place] [address] Jun, [facility] [address] [id number] [address] [place] [address] Jun, [facility] [address] [id number] [address] [place] [address] Jun, [facility] [address] [id number] [address] [place] [address] 14 Jun, 2014 [facility] [address] [id number] [address] [place] [address] Jun, [facility] [address] [id number] [address] [place] [address] May, [facility] [address] [id number] [address] [place] [address], [place] [address] May, [facility] [address] [id number] [address] [place] [address], [place] [address] Apr, [facility] [address] [id number] [address] [place] [address], [place] [address] Apr, [facility] [address] [id number] [address] [place] [address], [place] [address] Mar, [facility] [address] [id number] [address] [place] [address], [place] [address] Mar, [facility] [address] [id number] [address] [place] [address], [place] [address] Feb, [facility] [address] [id number] [address] [place] [address], [place] [address] Feb, [facility] [address] [id number] [address] [place] [address], [place] [address] Feb, [facility] [address] [id number] [address] [place] [address], [place] [address] Feb, [facility] [address] [id number] [address] [place] [address], [place] [address] Feb, [facility] [address] [id number] [address] [place] [address], [place] [address] Feb, [facility] [address] [id number] [address] [place] [address], [place] [address] Dec, [facility] [address] [id number] [address] [place] [address], [place] [address] Dec, [facility] [address] [id number] [address] [place] [address], [place] [address] Nov, [facility] [address] [id number] [address] [place] [address], [place] [address] 29 Nov, 2013 [facility] [address] [id number] [facility] [place] [address] 29 Nov, 2013 [facility] [address] [id number] [address] [place] [address], [place] [address] 29 Nov, 2013 [facility] [address] [id number] [address] [place] [address], [place] [address] 17 Nov, 2013 [facility] [address] [id number] [address] [place] [address], [place] [address] 17 Nov, 2013 [facility] [address] [id number] [address] [place] [address], [place] [address] Nov, [facility] [address] [id number] [address] [place] [address], [place] [address] Nov, [facility] [address] [id number] [address] [place] [address], [place] [address] Aug, [facility] [address] [id number] [address] [place] [address], [place] [address] Aug, [facility] [address] [id number] [address] [place] [address], [place] [address] Aug, [facility] [address] [id number] [address] [place] [address], [place] [address] Aug, [facility] [address] [id number] [address] [place] [address], [place] [address] July, [facility] [address] [id number] [address] [place] [address], [place] [address] July, [facility] [address] [id number] [address] [place] [address], [place] [address] Jun, [facility] [address] [id number] [address] [place] [address], [place] [address] Jun, [facility] [address] [id number] [address] [place] [address], [place] [address] Jun, [facility] [address] [id number] [address] [place] [address], [place] [address] Jun, [facility] [address] [id number] [address] [place] [address], [place] [address] May, [facility] [address] [id number] [address] [place] [address], [place] [address] May, [facility] [address] [id number] [address] [place] [address], [place] [address] Apr, [facility] [address] [id number] [address] [place] [address], [place] [address] Apr, [facility] [address] [id number] [address] [place] [address], [place] [address] Mar, [facility] [address] [id number] [address] [place] [address], [place] [address] Mar, [facility] [address] [id number] [address] [place] [address], [place] [address] Mar, [facility] [address] [id number] [address] [place] [address], [place] [address] Mar, [facility] [address] [id number] [address] [place] [address], [place] [address] Feb, [facility] [address] [id number] [address] [place] [address], [place] [address] Feb, [facility] [address] [id number] [address] [place] [address], [place] [address] Jan, [facility] [address] [id number] [address] [place] [address], [place] [address] Jan, [facility] [address] [id number] [address] [place] [address], [place] [address] Dec, [facility] [address] [id number] [address] [place] [address], [place] [address] Dec, [facility] [address] [id number] [address] [place] [address], [place] [address] Dec, [facility] [address] [id number] [address] [place] [address], [place] [address] Dec, [facility] [address] [id number] [address] [place] [address], [place] [address] Nov, [facility] [address] [id number] [address] [place] [address], [place] [address] Sep, [facility] [address] [id number] [address] [place] [address], [place] [address] Sep, [facility] [address] [id number] [address] [place] [address], [place] [address] Aug, [facility] [address] [id number] [address] [place] [address], [place] [address] July, [facility] [address] [id number] [address] [place] [address], [place] [address] Jun, [facility] [address] [id number] [address] [place] [address], [place] [address] May, [facility] [address] [id number] [address] [place] [address], [place] [address] May, [facility] [address] [id number] [address] [place] [address], [place] [address] May, [facility] [address] [id number] [address] [place] [address], [place] [address] May, [facility] [address] [id number] [address] [place] [address], [place] [address] May, [facility] [address] [id number] [address] [place] [address], [place] [address] Feb, [facility] [address] [id number] [address] [place] [address], [place] [address] Feb, [facility] [address] [id number] [address] [place] [address], [place] [address] Jan, [facility] [address] [id number] [address] [place] [address], [place] [address] Jan, [facility] [address] [id number] [address] [place] [address], [place] [address] Jan, [facility] [address] [id number] [address] [place] [address], [place] [address] Jan, [facility] [address] [id number] [address] [place] [address], [place] [address] Jan, [facility] [address] [id number] [address] [place] [address], [place] [address] Jan, [facility] [address] [id number] [address] [place] [address], [place] [address] Dec, [facility] [address] [id number] [address] [place] [address], [place] [address] Dec, [facility] [address] [id number] [address] [place] [address], [place] [address] Dec, [facility] [address] [id number] [address] [place] [address] Dec, [facility] [address] [id number] [address] [place] [address], [place] [address] Dec, [facility] [address] [id number] [address] [place] [address] 26 Nov, 2011 [facility] [address] [id number] [address] [place] [address] 18 Nov, 2011 [facility] [address] [id number] [address] [place] [address] 13 Nov, 2011 [facility] [address] [id number] [address] [place] [address] Sep, [facility] [address] [id number] [address] [place] [address] Aug, [facility] [address] [id number] [address] [place] [address] Aug, [facility] [address] [id number] [address] [place] [address] May, [facility] [address] [id number] [address] [place] [address], [place] [address] Apr, [facility] [address] [id number] [address] [place] [address], [place] [address] Mar, [facility] [address] [id number] [address] [place] [address], [place] [address] Mar, [facility] [address] [id number] [address] [place] [address], [place] [address] Dec, [facility] [address] [id number] [address] [place] [address], [place] [address] Sep, [facility] [address] [id number] [address] [place] [address], [place] [address] 2010 [facility] [address] [id number] [address] [place] [address] [address] 2010 [facility] [address] [id number] [address] [place] [address], [place] [address] 11 Jan, 2010 [facility] [address] [id number] [address] [place] [address], [place] [address] 08 Jan, 2010 [facility] [address] [id number] [address] [place] [address], [place] [address] 10 Nov, 2009 [facility] [address] [id number] [address] [place] [address], [place] [address] 15 Feb, 2009 [facility] [address] [id number] [address] [place] [address] 15 Feb, 2009 [facility] [address] [id number] [address] [place] [address], [place] [address] 16 Jan, 2009 [facility] [address] [id number] [address] [place] [address], [place] [address] 16 Jan, 2009 [facility] [address] [id number] [address] [place] [address], [place] [address] 13 Dec, 2008 [facility] [address] [facility] [id number] [address] [place] [address] Dec, [facility] [address] [facility] [id number] [address] [place] [id number] Nov, [facility] [address] [facility] [id number] [address] [place] [id number] Oct, [facility] [address] [facility] [id number] [address] [place] [phone] Sep, [facility] [address] [facility] [id number] [address] [place] [id number] Aug, IMMUNIZATIONS No Known Immunizations SOCIAL HISTORY Never Assessed REASON FOR VISIT TCM call PLAN OF CARE VITAL SIGNS MEDICATIONS Medication Instructions Dosage Frequency Start Date End Date Duration S tatus Aspirin 81 MG Orally Once a day 1 tablet 24h Active NovoLog Flexpen 100 UNIT/ML Subcutaneous 2 times a day befor e meals inject 15 units Sep, Active Metoprolol Tartrate 50MG TAKE ONE TABLET BY MOUTH TWICE DA GERHARD WITH MEALS 90 Active Lisinopril-Hydrochlorothiazide 20-12.5MG Orally 2 times a day 1 tablet 12h 90 Active Amaryl 4 MG Orally 2 times per day 1 tablet 90 Active Allopurinol 300 MG Orally Once a day 1 tablet 24h 30 day(s) Active Acyclovir 800 MG Orally Twice a day 1 tablet 12h 10 day(s) Active Lovastatin 20MG 1 tablet 24h Active Amlodipine Besylate 5 mg 1 tablet 24h 90 Active Ondansetron HCl 8 MG as directed Active Pen Conway 32G X 4 MM subcutaneously 4 times a day as directed wit h insulin 6h 31 Sep, 2016 Active ProAir HFA 108 (90 Base) MCG/ACT Inhalation every 6 hrs 2 puffs as needed 6h 14 May, 2018 Not-Taking Metformin HCl 1000 mg 1 tablet with meals 12h 90 Active Augmentin 875-125 MG Orally every 12 hrs 1 tablet 12h 21 May, 2 019 24 May, 2018 10 day(s) Active Levemir FlexTouch 100 UNIT/ML DX E11.59 2 times a day 48 units 12h 30 Active Fish Oil 1000 MG Orally Once a day 1 capsule 24h Active RESULTS No Results PROCEDURES No Known [...]
--- OUTSIDE RECORDS SUMMARY | 2019-05-19 20:58 | XMS REPORT ---
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 Active 163300430 Problem Diabetes type 2, controlled E11.9 Ac tive 68735882 Problem Other chronic pain G89.29 Active 8 6270369 Problem Other elevated white blood cell (WBC) count D72.82 8 Active 607712738 Problem Type 2 diabetes mellitus with hyperglycemia E11.65 Active 494712536 Problem penitentiary current use of insulin Z79.4 Active 883400666 Problem Controlled type 2 diabetes m ellitus without complication, without long- term current use of insulin E11.9 Active 326351813 Problem Type 2 diabetes mellitus without complications E11 .9 Active [id number] ALLERGIES No Information ENCOUNTERS Encounter Location Date Diagnosis [place] [address] [id number] [address] [place] [phone] July, [place] [address] [id number] [address] [place] [address] May, Type 2 diabetes mellitus wit h other circulatory complications E11.59 and Viral bronchitis J20.8 [facility] [address] [id number] [address] [place] [phone] May, Diabetes type 2, controlled E11.9 [facility] [address] [id number] [address] [place] [phone] May, [place] [address] [id number] [address] [place] [phone] 14 May, 2018 Type 2 diabetes mellitus wit h other circulatory complications E11.59 and Viral bronchitis J20.8 [place] [address] [id number] [address] [place] [address] Apr, [place] [address] [id number] [address] [place] [address] Feb, Type 2 diabetes mellitus wit h hyperglycemia E11.65 [place] [address] [id number] [address] [place] [address] Jan, Type 2 diabetes mellitus wit h other circulatory complications E11.59 [place] [address] [id number] [address] [place] [phone] Nov, [place] [address] [id number] [address] [place] [address] Oct, Other elevated white blood c ell (WBC) count D72.828 and Type 2 diabetes mellitus with other circulatory complications E11.59 [place] [address] [id number] [address] [place] [address] Sep, [place] [address] [id number] [address] [place] [phone] Sep, Diabetes type 2, controlled E11.9 [place] [address] [id number] [address] [place] [phone] Aug, Type 2 diabetes mellitus wit h hyperglycemia E11.65 [place] [address] [id number] [address] [place] [phone] July, [place] [address] [id number] [address] [place] [address] Jun, Diabetes type 2, controlled E11.9 ; Other chronic pain G89.29 ; Pain in left knee M25.562 and Pain in right knee M25.561 [place] [address] [id number] [address] [place] [address] May, [place] [address] [id number] [address] [place] [address] Feb, Other viral agents as the ca use of diseases classified elsewhere B97.89 and Acute upper respiratory infection, unspecified J06.9 [facility] [address] [id number] [address] [place] [address] Feb, [facility] [address] [id number] [address] [place] [address] Feb, Type 2 diabetes mellitus wit hout complications E11.9 and terminal carman current use of insulin Z79.4 [facility] [address] [id number] [address] [place] [phone] Dec, [facility] [address] [id number] [address] [place] [phone] Dec, [facility] [address] [id number] [address] [place] [phone] Nov, Type 2 diabetes mellitus wit hout complications E11.9 and terminal carman current use of insulin Z79.4 [place] [address] [id number] [address] [place] [phone] Nov, [facility] [address] [id number] [address] [place] [id number] Nov, Controlled type 2 diabetes m ellitus without complication, without long-term current use of insulin E11.9 [place] [address] [id number] [address] [place] [address] Nov, Controlled type 2 diabetes m ellitus without complication, without long-term current use of insulin E11.9 [place] [address] [id number] [address] [place] [address] Nov, Type 2 diabetes mellitus wit h other circulatory complications E11.59 [facility] [address] [id number] [address] [place] [address] Oct, Type 2 diabetes mellitus wit h hyperglycemia E11.65 [facility] [address] [id number] [address] [place] [address] Oct, [facility] [address] [id number] [address] [place] [phone] Oct, [facility] [address] [id number] [address] [place] [address] Oct, Type 2 diabetes mellitus wit hout complications E11.9 [facility] [address] [id number] [address] [place] [address] Sep, Type 2 diabetes mellitus wit h hyperglycemia E11.65 [facility] [address] [id number] [address] [place] [address] Sep, Type 2 diabetes mellitus wit h other circulatory complications E11.59 [facility] [address] [id number] [address] [place] [address] Aug, [place] [address] [id number] [address] [place] [phone] July, Controlled type 2 diabetes m ellitus without complication, without long-term current use of insulin E11.9 [facility] [address] [id number] [address] [place] [phone] May, [facility] [address] [id number] [address] [place] [address] Feb, Controlled type 2 diabetes m ellitus without complication, without long-term current use of insulin E11.9 [facility] [address] [id number] [address] [place] [address] Jan, Controlled type 2 diabetes m ellitus without complication, without long-term current use of insulin E11.9 [facility] [address] [id number] [address] [place] [id number] Jan, Type 2 diabetes mellitus wit h hyperglycemia E11.65 and penitentiary current use of insulin Z79.4 [facility] [address] [id number] [address] [place] [phone] Nov, Diabetes type 2, controlled E11.9 [facility] [address] [id number] [address] [place] [address] Aug, Type 2 diabetes mellitus wit h other circulatory complications E11.59 and Hypertension, essential I10 [facility] [address] [id number] [address] [place] [phone] July, Type 2 diabetes mellitus wit h hyperglycemia E11.65 and Hypertension, benign I10 [facility] [address] [id number] [address] [place] [phone] May, Type 2 diabetes mellitus wit h other circulatory complications E11.59 [facility] [address] [id number] [address] [place] [phone] 03 Apr, 2015 Diabetes type 2, controlled E11.9 [facility] [address] [id number] [address] [place] [phone] Jan, Type 2 diabetes mellitus wit h other circulatory complications E11.59 [facility] [address] [id number] [address] [place] [address] Dec, Type 2 diabetes mellitus wit h other circulatory complications E11.59 [facility] [address] [id number] [address] [place] [address] Aug, Diabetes 250.00 [facility] [address] [id number] [address] [place] [address] July, Diabetes 250.00 [facility] [address] [id number] [address] [place] [id number] 30 Jun, 2014 [facility] [address] [id number] [address] [place] [phone] Jun, [facility] [address] [id number] [address] [place] [id number] 28 Jun, 2014 [facility] [address] [id number] [address] [place] [phone] 14 Jun, 2014 [facility] [address] [id number] [address] [place] [phone] Jun, [facility] [address] [id number] [address] [place] [phone] May, [facility] [address] [id number] [address] [place] [phone] May, [facility] [address] [id number] [address] [place] [address], [place] [address] Apr, [facility] [address] [id number] [address] [place] [address], [place] [address] Apr, [facility] [address] [id number] [address] [place] [address], [place] [address] Mar, [facility] [address] [id number] [address] [place] [address], [place] [address] Mar, [facility] [address] [id number] [address] [place] [address], [place] [address] Feb, [facility] [address] [id number] [address] [place] [address], [place] [address] Feb, [facility] [address] [id number] [address] [place] [address], [place] [address] Feb, [facility] [address] [id number] [address] [place] [address], [place] [address] Feb, [facility] [address] [id number] [address] [place] [address], [place] [address] Feb, [facility] [address] [id number] [address] [place] [address], [place] [address] Feb, [facility] [address] [id number] [address] [place] [address], [place] [address] Dec, [facility] [address] [id number] [address] [place] [address], [place] [address] Dec, [facility] [address] [id number] [address] [place] [address], [place] [address] Nov, [facility] [address] [id number] [address] [place] [address], [place] [address] Nov, [facility] [address] [id number] [address] [place] [address], [place] [address] Nov, [facility] [address] [id number] [facility] [place] [address] 29 Nov, 2013 [facility] [address] [id number] [facility] [place] [address] 17 Nov, 2013 [facility] [address] [id number] [address] [place] [address], [place] [address] 17 Nov, 2013 [facility] [address] [id number] [address] [place] [address], [place] [address] Nov, [facility] [address] [id number] [address] [place] [address], [place] [address] Nov, [facility] [address] [id number] [address] [place] [address], [place] [address] Aug, [facility] [address] [id number] [address] [place] [address], [place] [address] Aug, [facility] [address] [id number] [address] [place] [address], [place] [address] Aug, [facility] [address] [id number] [address] [place] [address], [place] [address] Aug, [facility] [address] [id number] [address] [place] [address], [place] [address] July, [facility] [address] [id number] [address] [place] [address], [place] [address] July, [facility] [address] [id number] [address] [place] [address], [place] [address] Jun, [facility] [address] [id number] [address] [place] [address], [place] [address] Jun, [facility] [address] [id number] [address] [place] [address], [place] [address] Jun, [facility] [address] [id number] [address] [place] [address], [place] [address] 15 Jun, 2013 [facility] [address] [id number] [address] [place] [address], [place] [address] May, [facility] [address] [id number] [address] [place] [address], [place] [address] May, [facility] [address] [id number] [address] [place] [address], [place] [address] Apr, [facility] [address] [id number] [address] [place] [address], [place] [address] Apr, [facility] [address] [id number] [address] [place] [address], [place] [address] Mar, [facility] [address] [id number] [address] [place] [address], [place] [address] Mar, [facility] [address] [id number] [address] [place] [address], [place] [address] Mar, [facility] [address] [id number] [address] [place] [address], [place] [address] Mar, [facility] [address] [id number] [address] [place] [address], [place] [address] Feb, [facility] [address] [id number] [address] [place] [address], [place] [address] Feb, [facility] [address] [id number] [address] [place] [address], [place] [address] Jan, [facility] [address] [id number] [address] [place] [address], [place] [address] Jan, [facility] [address] [id number] [address] [place] [address], [place] [address] Dec, [facility] [address] [id number] [address] [place] [address], [place] [address] Dec, [facility] [address] [id number] [address] [place] [address], [place] [address] Dec, [facility] [address] [id number] [address] [place] [address], [place] [address] Dec, [facility] [address] [id number] [address] [place] [address], [place] [address] Nov, [facility] [address] [id number] [address] [place] [address], [place] [address] Sep, [facility] [place] [address] [id number] [address] [place] [address], [place] [address] Sep, [facility] [address] [id number] [address] [place] [address], [place] [address] Aug, [facility] [address] [id number] [address] [place] [address], [place] [address] July, [facility] [place] [address] [id number] [address] [place] [address], [place] [address] Jun, [facility] [place] [address] [id number] [address] [place] [address], [place] [address] May, [facility] [place] [address] [id number] [address] [place] [address], [place] [address] May, [facility] [address] [id number] [address] [place] [address], [place] [address] May, [facility] [place] [address] [id number] [address] [place] [address], [place] [address] May, [facility] [address] [id number] [address] [place] [address], [place] [address] May, [facility] [place] [address] [id number] [address] [place] [address], [place] [address] Feb, [facility] [address] [id number] [address] [place] [address], [place] [address] Feb, [facility] [address] [id number] [address] [place] [address], [place] [address] Jan, [facility] [address] [id number] [address] [place] [address], [place] [address] Jan, [facility] [place] [address] [id number] [address] [place] [address], [place] [address] Jan, [facility] [address] [id number] [address] [place] [address], [place] [address] Jan, [facility] [address] [id number] [address] [place] [address], [place] [address] Jan, [facility] [address] [id number] [address] [place] [address], [place] [address] Jan, [facility] [address] [id number] [address] [place] [address], [place] [address] Dec, [facility] [address] [id number] [address] [place] [address], [place] [address] Dec, [facility] [address] [id number] [address] [place] [address], [place] [address] Dec, [facility] [address] [id number] [address] [place] [address], [place] [address] 18 Dec, 2011 [facility] [address] [id number] [address] [place] [address], [place] [address] Dec, [facility] [address] [id number] [address] [place] [address], [place] [address] 26 Nov, 2011 [facility] [address] [id number] [address] [place] [address] 18 Nov, 2011 [facility] [address] [id number] [address] [place] [address] 13 Nov, 2011 [facility] [address] [id number] [address] [place] [address] Sep, [facility] [address] [id number] [address] [place] [address], [place] [address] Aug, [facility] [address] [id number] [address] [place] [address] Aug, [facility] [address] [id number] [address] [place] [address] May, [facility] [address] [id number] [address] [place] [address] 29 Apr, 2011 [facility] [address] [id number] [address] [place] [address], [place] [address] Mar, [facility] [address] [id number] [address] [place] [address] Mar, [facility] [address] [id number] [address] [place] [address], [place] [address] Dec, [facility] [address] [id number] [address] [place] [address], [place] [address] Sep, [facility] [address] [id number] [address] [place] [address], [place] [address] 2010 [facility] [address] [id number] [address] [place] [address] [address] 2010 [facility] [address] [id number] [address] [place] [address] 11 Jan, 2010 [facility] [address] [id number] [address] [place] [address], [place] [address] 08 Jan, 2010 [facility] [address] [id number] [address] [place] [address], [place] [address] 10 Nov, 2009 [facility] [address] [id number] [address] [place] [address], [place] [address] 15 Feb, 2009 [facility] [address] [id number] [address] [place] [address], [place] [address] 15 Feb, 2009 [facility] [address] [id number] [address] [place] [address] 16 Jan, 2009 [facility] [address] [id number] [address] [place] [address] 16 Jan, 2009 [facility] [address] [id number] [address] [place] [phone] 13 Dec, 2008 [facility] [address] [id number] [address] [place] [phone] 13 Dec, 2008 [facility] [address] [id number] [address] [place] [phone] Nov, [facility] [address] [id number] [address] [place] [phone] Oct, [facility] [address] [id number] [address] [place] [phone] Sep, [facility] [address] [id number] [address] [place] [phone] Aug, IMMUNIZATIONS No Known Immunizations SOCIAL HISTORY [...] replacement 2018 Hospitalization History surgeries Hospitalization History pneumonia-[facility] 05/2018
--- OUTSIDE RECORDS SUMMARY | 2019-05-19 20:58 | XMS REPORT ---
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 Active 522190926 Problem Diabetes type 2, controlled E11.9 Ac tive 08677819 Problem Other chronic pain G89.29 Active 8 1350514 Problem Other elevated white blood cell (WBC) count D72.82 8 Active 011325514 Problem Type 2 diabetes mellitus with hyperglycemia E11.65 Active 174262543 Problem [facility] current use of insulin Z79.4 Active 738592990 Problem Controlled type 2 diabetes m ellitus without complication, without long- term current use of insulin E11.9 Active 251745589 Problem Type 2 diabetes mellitus without complications E11 .9 Active [id number] ALLERGIES No Information ENCOUNTERS Encounter Location Date Diagnosis [place] [address] [facility] [id number] [address] [place] [address] July, [place] [address] [facility] [id number] [address] [place] [address] May, Type 2 diabetes mellitus wit h other circulatory complications E11.59 and Viral bronchitis J20.8 [facility] [address] [facility] [id number] [address] [place] [phone] May, Diabetes type 2, controlled E11.9 [facility] [address] [facility] [id number] [address] [place] [phone] May, [place] [address] [facility] [id number] [address] [place] [phone] 14 May, 2018 Type 2 diabetes mellitus wit h other circulatory complications E11.59 and Viral bronchitis J20.8 [place] [address] [facility] [id number] [address] [place] [phone] Apr, [place] [address] [facility] [id number] [address] [place] [id number] Feb, Type 2 diabetes mellitus wit h hyperglycemia E11.65 [place] [address] [facility] [id number] [address] [place] [phone] Jan, Type 2 diabetes mellitus wit h other circulatory complications E11.59 [place] [address] [facility] [id number] [address] [place] [phone] Nov, [place] [address] [facility] [id number] [address] [place] [id number] Oct, Other elevated white blood c ell (WBC) count D72.828 and Type 2 diabetes mellitus with other circulatory complications E11.59 [place] [address] [facility] [id number] [address] [place] [id number] Sep, [place] [address] [facility] [id number] [address] [place] [id number] Sep, Diabetes type 2, controlled E11.9 [place] [address] [facility] [id number] [address] [place] [id number] Aug, Type 2 diabetes mellitus wit h hyperglycemia E11.65 [place] [address] [facility] [id number] [address] [place] [address] July, [place] [address] [facility] [id number] [address] [place] [address] Jun, Diabetes type 2, controlled E11.9 ; Other chronic pain G89.29 ; Pain in left knee M25.562 and Pain in right knee M25.561 [place] [address] [facility] [id number] [address] [place] [phone] May, [place] [address] [facility] [id number] [address] [place] [id number] Feb, Other viral agents as the ca use of diseases classified elsewhere B97.89 and Acute upper respiratory infection, unspecified J06.9 [facility] [address] [id number] [address] [place] [phone] Feb, [facility] [address] 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 [id number] [address] [place] [phone] Nov, [facility] [address] [id number] [address] [place] [phone] Nov, Controlled type 2 diabetes m ellitus without complication, without long-term current use of insulin E11.9 [place] [address] [facility] [id number] [address] [place] [id number] Nov, Controlled type 2 diabetes m ellitus without complication, without long-term current use of insulin E11.9 [place] [address] [facility] [id number] [address] [place] [id number] Nov, Type 2 diabetes mellitus wit h other circulatory complications E11.59 [facility] [address] [id number] [address] [place] [id number] Oct, Type 2 diabetes mellitus wit h hyperglycemia E11.65 [facility] [address] [facility] [id number] [address] [place] [id number] Oct, [facility] [address] [facility] [id number] [address] [place] [phone] Oct, [facility] [address] [facility] [id number] [address] [place] [phone] Oct, Type 2 diabetes mellitus wit hout complications E11.9 [facility] [address] [facility] [id number] [address] [place] [address] Sep, Type 2 diabetes mellitus wit h hyperglycemia E11.65 [facility] [address] [facility] [id number] [address] [place] [id number] Sep, Type 2 diabetes mellitus wit h other circulatory complications E11.59 [facility] [address] [facility] [id number] [address] [place] [phone] Aug, [place] [address] [facility] [id number] [address] [place] [phone] July, Controlled type 2 diabetes m ellitus without complication, without long-term current use of insulin E11.9 [facility] [address] [facility] [id number] [address] [place] [phone] May, [facility] [address] [facility] [id number] [address] [place] [id number] Feb, Controlled type 2 diabetes m ellitus without complication, without long-term current use of insulin E11.9 [facility] [address] [facility] [id number] [address] [place] [id number] Jan, Controlled type 2 diabetes m ellitus without complication, without long-term current use of insulin E11.9 [facility] [address] [facility] [id number] [address] [place] [id number] Jan, Type 2 diabetes mellitus wit h hyperglycemia E11.65 and [facility] current use of insulin Z79.4 [facility] [address] [facility] [id number] [address] [place] [phone] Nov, Diabetes type 2, controlled E11.9 [facility] [address] [facility] [id number] [address] [place] [id number] Aug, Type 2 diabetes mellitus wit h other circulatory complications E11.59 and Hypertension, essential I10 [facility] [address] [id number] [address] [place] [phone] July, Type 2 diabetes mellitus wit h hyperglycemia E11.65 and Hypertension, benign I10 [facility] [address] [id number] [address] [place] [phone] May, Type 2 diabetes mellitus wit h other circulatory complications E11.59 [facility] [address] [id number] [address] [place] [id number] 03 Apr, 2015 Diabetes type 2, controlled E11.9 [facility] [address] [id number] [address] [place] [id number] Jan, Type 2 diabetes mellitus wit h other circulatory complications E11.59 [facility] [address] [id number] [address] [place] [id number] Dec, Type 2 diabetes mellitus wit h other circulatory complications E11.59 [facility] [address] [id number] [address] [place] [address] Aug, Diabetes 250.00 [facility] [address] [id number] [address] [place] [address] July, Diabetes 250.00 [facility] [address] [id number] [address] [place] [id number] 30 Jun, 2014 [facility] [address] [id number] [address] [place] [phone] Jun, [facility] [address] [id number] [address] [place] [phone] 28 Jun, 2014 [facility] [address] [id number] [address] [place] [id number] 14 Jun, 2014 [facility] [address] [id number] [address] [place] [phone] Jun, [facility] [address] [id number] [address] [place] [phone] May, [facility] [address] [id number] [address] [place] [phone] May, [facility] [address] [id number] [address] [place] [address], [place] [address] Apr, [facility] [address] [id number] [address] [place] [address], [place] [address] Apr, [facility] [address] [id number] [address] [place] [address], [place] [address] Mar, [facility] [address] [id number] [address] [place] [address], [place] [address] Mar, [facility] [address] [id number] [address] [place] [address], [place] [address] Feb, [facility] [address] [id number] [address] [place] [address], [place] [address] Feb, [facility] [address] [id number] [address] [place] [address], [place] [address] Feb, [facility] [address] [id number] [address] [place] [address], [place] [address] Feb, [facility] [address] [id number] [address] [place] [address], [place] [address] Feb, [facility] [address] [id number] [address] [place] [address], [place] [address] Feb, [facility] [address] [id number] [address] [place] [address], [place] [address] Dec, [facility] [address] [id number] [address] [place] [address], [place] [address] Dec, [facility] [address] [id number] [address] [place] [address], [place] [address] Nov, [facility] [address] [id number] [address] [place] [address], [place] [address] Nov, [facility] [address] [id number] [address] [place] [address], [place] [address] Nov, [facility] [address] [id number] [facility] [place] [address] 29 Nov, 2013 [facility] [address] [id number] [facility] [place] [address] 17 Nov, 2013 [facility] [address] [id number] [address] [place] [address], [place] [address] 17 Nov, 2013 [facility] [address] [id number] [address] [place] [address], [place] [address] Nov, [facility] [address] [id number] [address] [place] [address], [place] [address] Nov, [facility] [address] [id number] [address] [place] [address], [place] [address] Aug, [facility] [address] [id number] [address] [place] [address], [place] [address] Aug, [facility] [address] [id number] [address] [place] [address], [place] [address] Aug, [facility] [address] [id number] [address] [place] [address], [place] [address] Aug, [facility] [address] [id number] [address] [place] [address], [place] [address] July, [facility] [address] [id number] [address] [place] [address], [place] [address] July, [facility] [address] [id number] [address] [place] [address], [place] [address] Jun, [facility] [address] [id number] [address] [place] [address], [place] [address] Jun, [facility] [address] [id number] [address] [place] [address], [place] [address] Jun, [facility] [address] [id number] [address] [place] [address], [place] [address] 15 Jun, 2013 [facility] [address] [id number] [address] [place] [address], [place] [address] May, [facility] [address] [id number] [address] [place] [address], [place] [address] May, [facility] [address] [id number] [address] [place] [address], [place] [address] Apr, [facility] [address] [id number] [address] [place] [address], [place] [address] Apr, [facility] [address] [id number] [address] [place] [address], [place] [address] Mar, [facility] [address] [id number] [address] [place] [address], [place] [address] Mar, [facility] [address] [id number] [address] [place] [address], [place] [address] Mar, [facility] [address] [id number] [address] [place] [address], [place] [address] Mar, [facility] [address] [id number] [address] [place] [address], [place] [address] Feb, [facility] [address] [id number] [address] [place] [address], [place] [address] Feb, [facility] [address] [id number] [address] [place] [address], [place] [address] Jan, [facility] [address] [id number] [address] [place] [address], [place] [address] Jan, [facility] [address] [id number] [address] [place] [address], [place] [address] Dec, [facility] [address] [id number] [address] [place] [address], [place] [address] Dec, [facility] [address] [id number] [address] [place] [address], [place] [address] Dec, [facility] [address] [id number] [address] [place] [address], [place] [address] Dec, [facility] [address] [id number] [address] [place] [address], [place] [address] Nov, [facility] [address] [id number] [address] [place] [address], [place] [address] Sep, [facility] [address] [id number] [address] [place] [address], [place] [address] Sep, [facility] [address] [id number] [address] [place] [address], [place] [address] Aug, [facility] [address] [id number] [address] [place] [address], [place] [address] July, [facility] [address] [id number] [address] [place] [address], [place] [address] Jun, [facility] [address] [id number] [address] [place] [address], [place] [address] May, [facility] [address] [id number] [address] [place] [address], [place] [address] May, [facility] [address] [id number] [address] [place] [address], [place] [address] May, [facility] [address] [id number] [address] [place] [address], [place] [address] May, [facility] [address] [id number] [address] [place] [address], [place] [address] May, [facility] [address] [id number] [address] [place] [address], [place] [address] Feb, [facility] [address] [id number] [address] [place] [address], [place] [address] Feb, [facility] [address] [id number] [address] [place] [address], [place] [address] Jan, [facility] [address] [id number] [address] [place] [address], [place] [address] Jan, [facility] [address] [id number] [address] [place] [address], [place] [address] Jan, [facility] [address] [id number] [address] [place] [address], [place] [address] Jan, [facility] [address] [id number] [address] [place] [address], [place] [address] Jan, [facility] [address] [id number] [address] [place] [address], [place] [address] Jan, [facility] [address] [id number] [address] [place] [address], [place] [address] Dec, [facility] [address] [id number] [address] [place] [address], [place] [address] Dec, [facility] [address] [id number] [address] [place] [address], [place] [address] Dec, [facility] [address] [id number] [address] [place] [address], [place] [address] 18 Dec, 2011 [facility] [address] [id number] [address] [place] [address], [place] [address] Dec, [facility] [address] [id number] [address] [place] [address], [place] [address] 26 Nov, 2011 [facility] [address] [id number] [address] [place] [address] 18 Nov, 2011 [facility] [address] [id number] [address] [place] [address] 13 Nov, 2011 [facility] [address] [id number] [address] [place] [address] Sep, [facility] [address] [id number] [address] [place] [address], [place] [address] Aug, [facility] [address] [id number] [address] [place] [address] Aug, [facility] [address] [id number] [address] [place] [address] May, [facility] [address] [id number] [address] [place] [id number] 29 Apr, 2011 [facility] [address] [id number] [address] [place] [address], [place] [address] Mar, [facility] [address] [id number] [address] [place] [id number] Mar, [facility] [address] [id number] [address] [place] [address], [place] [address] Dec, [facility] [address] [id number] [address] [place] [address], [place] [address] Sep, [facility] [address] [id number] [address] [place] [address] [address] 2010 [facility] [address] [id number] [address] [place] [address] [id number] 2010 [facility] [address] [id number] [address] [place] [id number] 11 Jan, 2010 [facility] [address] [id number] [address] [place] [address], [place] [id number] 08 Jan, 2010 [facility] [address] [id number] [address] [place] [address], [place] [id number] 10 Nov, 2009 [facility] [address] [id number] [address] [place] [address], [place] [id number] 15 Feb, 2009 [facility] [address] [id number] [address] [place] [address], [place] [phone] 15 Feb, 2009 [facility] [address] [id number] [address] [place] [id number] 16 Jan, 2009 [facility] [address] [id number] [address] [place] [id number] 16 Jan, 2009 [facility] [address] [id number] [address] [place] [id number] 13 Dec, 2008 [facility] [address] [id number] [address] [place] [id number] 13 Dec, 2008 [facility] [address] [facility] [id number] [address] [place] [id number] Nov, [facility] [address] [facility] [id number] [address] [place] [phone] Oct, [facility] [address] [facility] [id number] [address] [place] [phone] Sep, [facility] [address] [facility] [id number] [address] [place] [id number] Aug, IMMUNIZATIONS No Known Immunizations SOCIAL HISTORY Never Assessed REASON FOR VISIT PLAN OF CARE VITAL SIGNS MEDICATIONS Unknown Medications RESULTS No Results PROCEDURES Procedure Date Ordered Result Body Site COMPLETE CBC W/AUTO DIFF WBC Nov 20, 2013 LIPID PANEL Nov 20, 2013 COMPREHEN METABOLIC PANEL Nov 20, 2013 VENIPUNCT, ROUTINE* Nov 20, 2013 INSTRUCTIONS MEDICATIONS ADMINISTERED No Known Medications MEDICAL (GENERAL) HISTORY Type Description Date Medical History hypertension Medical History type II diabetes Medical History hyperlipidemia Medical History chronic pain-knees 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
--- OUTSIDE RECORDS SUMMARY | 2019-05-19 20:58 | XMS REPORT ---
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 Active 215692111 Problem Diabetes type 2, controlled E11.9 Ac tive 70016118 Problem Other chronic pain G89.29 Active 8 0297919 Problem Other elevated white blood cell (WBC) count D72.82 8 Active 857208187 Problem Type 2 diabetes mellitus with hyperglycemia E11.65 Active 420005456 Problem halfway current use of insulin Z79.4 Active 252871404 Problem Controlled type 2 diabetes m ellitus without complication, without long- term current use of insulin E11.9 Active 950344251 Problem Type 2 diabetes mellitus without complications E11 .9 Active [id number] ALLERGIES No Information ENCOUNTERS Encounter Location Date Diagnosis [place] [address] [place] [id number] [address] [place] [address] Oct, [facility] [address] [place] [id number] [place] [address] July, [facility] [address] [facility] [id number] [address] [place] [address] May, Type 2 diabetes mellitus wit h other circulatory complications E11.59 and Viral bronchitis J20.8 [facility] [address] [facility] [id number] [address] [place] [address] May, Diabetes type 2, controlled E11.9 [facility] [address] [facility] [id number] [address] [place] [address] May, [facility] [address] [place] [id number] [address] [place] [address] May, Type 2 diabetes mellitus wit h other circulatory complications E11.59 and Viral bronchitis J20.8 [facility] [address] [facility] [id number] [address] [place] [address] Apr, [facility] [address] [facility] [id number] [address] [place] [address] Feb, Type 2 diabetes mellitus wit h hyperglycemia E11.65 [place] [address] [facility] [id number] [address] [place] [address] Jan, Type 2 diabetes mellitus wit h other circulatory complications E11.59 [place] [address] [facility] [id number] [address] [place] [address] Nov, [place] [address] [facility] [id number] [address] [place] [address] Oct, Other elevated white blood c ell (WBC) count D72.828 and Type 2 diabetes mellitus with other circulatory complications E11.59 [facility] [address] [facility] [id number] [address] [place] [address] Sep, [place] [address] [facility] [id number] [address] [place] [address] Sep, Diabetes type 2, controlled E11.9 [place] [address] [facility] [id number] [address] [place] [address] Aug, Type 2 diabetes mellitus wit h hyperglycemia E11.65 [place] [address] [facility] [id number] [address] [place] [address] July, [facility] [address] [facility] [id number] [address] [place] [address] Jun, Diabetes type 2, controlled E11.9 ; Other chronic pain G89.29 ; Pain in left knee M25.562 and Pain in right knee M25.561 [place] [address] [facility] [id number] [address] [place] [address] May, [facility] [address] [facility] [id number] [address] [place] [address] Feb, Other viral agents as the ca use of diseases classified elsewhere B97.89 and Acute upper respiratory infection, unspecified J06.9 [facility] [address] [id number] [address] [place] [address] Feb, [facility] [address] [facility] [id number] [address] [place] [address] Feb, Type 2 diabetes mellitus wit hout complications E11.9 and halfway current use of insulin Z79.4 [place] [address] [id number] [address] [place] [address] Dec, [place] [address] [id number] [address] [place] [address] Dec, [place] [address] [facility] [id number] [address] [place] [address] Nov, Type 2 diabetes mellitus wit hout complications E11.9 and halfway current use of insulin Z79.4 [place] [address] [id number] [address] [place] [address] Nov, [place] [address] [facility] [id number] [address] [place] [address] Nov, Controlled type 2 diabetes m ellitus without complication, without long-term current use of insulin E11.9 [place] [address] [facility] [id number] [address] [place] [address] Nov, Controlled type 2 diabetes m ellitus without complication, without long-term current use of insulin E11.9 [place] [address] [id number] [address] [place] [address] Nov, Type 2 diabetes mellitus wit h other circulatory complications E11.59 [facility] [address] [facility] [id number] [address] [place] [address] Oct, Type 2 diabetes mellitus wit h hyperglycemia E11.65 [place] [address] [facility] [id number] [address] [place] [address] Oct, [facility] [address] [id number] [address] [place] [address] Oct, [facility] [address] [id number] [address] [place] [address] Oct, Type 2 diabetes mellitus wit hout complications E11.9 [facility] [address] [id number] [address] [place] [address] Sep, Type 2 diabetes mellitus wit h hyperglycemia E11.65 [facility] [address] [id number] [address] [place] [address] Sep, Type 2 diabetes mellitus wit h other circulatory complications E11.59 [facility] [address] [id number] [address] [place] [address] Aug, [facility] [address] [facility] [id number] [address] [place] [address] July, Controlled type 2 diabetes m ellitus without complication, without long-term current use of insulin E11.9 [facility] [address] [id number] [address] [place] [address] May, [facility] [address] [id number] [address] [place] [address] Feb, Controlled type 2 diabetes m ellitus without complication, without long-term current use of insulin E11.9 [facility] [address] [id number] [address] [place] [address] Jan, Controlled type 2 diabetes m ellitus without complication, without long-term current use of insulin E11.9 [facility] [address] [id number] [address] [place] [address] Jan, Type 2 diabetes mellitus wit h hyperglycemia E11.65 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 [facility] [address] [id number] [address] [place] [address] Nov, Diabetes type 2, controlled E11.9 [facility] [address] [id number] [address] [place] [address] Aug, Type 2 diabetes mellitus wit h other circulatory complications E11.59 and Hypertension, essential I10 [facility] [address] [id number] [address] [place] [address] July, Type 2 diabetes mellitus wit h hyperglycemia E11.65 and Hypertension, benign I10 [facility] [address] [id number] [address] [place] [address] May, Type 2 diabetes mellitus wit h other circulatory complications E11.59 [facility] [address] [id number] [address] [place] [address] Apr, Diabetes type 2, controlled E11.9 [facility] [address] [facility] [id number] [address] [place] [address] Jan, Type 2 diabetes mellitus wit h other circulatory complications E11.59 [facility] [address] [id number] [address] [place] [address] Dec, Type 2 diabetes mellitus wit h other circulatory complications E11.59 [facility] [address] [id number] [address] [place] [address] Aug, Diabetes 250.00 [facility] [address] [id number] [address] [place] [address] July, Diabetes 250.00 [facility] [address] [id number] [address] [place] [address] Jun, [facility] [address] [id number] [address] [place] [address] Jun, [facility] [address] [id number] [address] [place] [address] Jun, [facility] [address] [id number] [address] [place] [address] 14 Jun, 2014 [facility] [address] [id number] [address] [place] [address] Jun, [facility] [address] [id number] [address] [place] [address] May, [facility] [address] [id number] [address] [place] [address], [place] [address] May, [facility] [address] [id number] [address] [place] [address], [place] [address] Apr, [facility] [address] [id number] [address] [place] [address], [place] [address] Apr, [facility] [address] [id number] [address] [place] [address], [place] [address] Mar, [facility] [address] [id number] [address] [place] [address], [place] [address] Mar, [facility] [address] [id number] [address] [place] [address], [place] [address] Feb, [facility] [address] [id number] [address] [place] [address], [place] [address] Feb, [facility] [address] [id number] [address] [place] [address], [place] [address] Feb, [facility] [address] [id number] [address] [place] [address], [place] [address] Feb, [facility] [address] [id number] [address] [place] [address], [place] [address] Feb, [facility] [address] [id number] [address] [place] [address], [place] [address] Feb, [facility] [address] [id number] [address] [place] [address], [place] [address] Dec, [facility] [address] [id number] [address] [place] [address], [place] [address] Dec, [facility] [address] [id number] [address] [place] [address], [place] [address] Nov, [facility] [address] [id number] [address] [place] [address], [place] [address] 29 Nov, 2013 [facility] [address] [id number] [facility] [place] [address] 29 Nov, 2013 [facility] [address] [id number] [address] [place] [address], [place] [address] 29 Nov, 2013 [facility] [address] [id number] [address] [place] [address], [place] [address] 17 Nov, 2013 [facility] [address] [id number] [address] [place] [address], [place] [address] 17 Nov, 2013 [facility] [address] [id number] [address] [place] [address], [place] [address] Nov, [facility] [address] [id number] [address] [place] [address], [place] [address] Nov, [facility] [address] [id number] [address] [place] [address], [place] [address] Aug, [facility] [address] [id number] [address] [place] [address], [place] [address] Aug, [facility] [address] [id number] [address] [place] [address], [place] [address] Aug, [facility] [address] [id number] [address] [place] [address], [place] [address] Aug, [facility] [address] [id number] [address] [place] [address], [place] [address] July, [facility] [address] [id number] [address] [place] [address], [place] [address] July, [facility] [address] [id number] [address] [place] [address], [place] [address] Jun, [facility] [address] [id number] [address] [place] [address], [place] [address] Jun, [facility] [address] [id number] [address] [place] [address], [place] [address] Jun, [facility] [address] [id number] [address] [place] [address], [place] [address] Jun, [facility] [address] [id number] [address] [place] [address], [place] [address] May, [facility] [address] [id number] [address] [place] [address], [place] [address] May, [facility] [address] [id number] [address] [place] [address], [place] [address] Apr, [facility] [address] [id number] [address] [place] [address], [place] [address] Apr, [facility] [address] [id number] [address] [place] [address], [place] [address] Mar, [facility] [address] [id number] [address] [place] [address], [place] [address] Mar, [facility] [address] [id number] [address] [place] [address], [place] [address] Mar, [facility] [address] [id number] [address] [place] [address], [place] [address] Mar, [facility] [address] [id number] [address] [place] [address], [place] [address] Feb, [facility] [address] [id number] [address] [place] [address], [place] [address] Feb, [facility] [address] [id number] [address] [place] [address], [place] [address] Jan, [facility] [address] [id number] [address] [place] [address], [place] [address] Jan, [facility] [address] [id number] [address] [place] [address], [place] [address] Dec, [facility] [address] [id number] [address] [place] [address], [place] [address] Dec, [facility] [address] [id number] [address] [place] [address], [place] [address] Dec, [facility] [address] [id number] [address] [place] [address], [place] [address] Dec, [facility] [address] [id number] [address] [place] [address], [place] [address] Nov, [facility] [address] [id number] [address] [place] [address], [place] [address] Sep, [facility] [address] [id number] [address] [place] [address], [place] [address] Sep, [facility] [address] [id number] [address] [place] [address], [place] [address] Aug, [facility] [address] [id number] [address] [place] [address], [place] [address] July, [facility] [address] [id number] [address] [place] [address], [place] [address] Jun, [facility] [address] [id number] [address] [place] [address], [place] [address] May, [facility] [address] [id number] [address] [place] [address], [place] [address] May, [facility] [address] [id number] [address] [place] [address], [place] [address] May, [facility] [address] [id number] [address] [place] [address], [place] [address] May, [facility] [address] [id number] [address] [place] [address], [place] [address] May, [facility] [address] [id number] [address] [place] [address], [place] [address] Feb, [facility] [address] [id number] [address] [place] [address], [place] [address] Feb, [facility] [address] [id number] [address] [place] [address], [place] [address] Jan, [facility] [address] [id number] [address] [place] [address], [place] [address] Jan, [facility] [address] [id number] [address] [place] [address], [place] [address] Jan, [facility] [address] [id number] [address] [place] [address], [place] [address] Jan, [facility] [address] [id number] [address] [place] [address], [place] [address] Jan, [facility] [address] [id number] [address] [place] [address], [place] [address] Jan, [facility] [address] [id number] [address] [place] [address], [place] [address] Dec, [facility] [address] [id number] [address] [place] [address], [place] [address] Dec, [facility] [address] [id number] [address] [place] [address], [place] [address] Dec, [facility] [address] [id number] [address] [place] [address] Dec, [facility] [address] [id number] [address] [place] [address], [place] [address] Dec, [facility] [address] [id number] [address] [place] [address] 26 Nov, 2011 [facility] [address] [id number] [address] [place] [address] 18 Nov, 2011 [facility] [address] [id number] [address] [place] [address] 13 Nov, 2011 [facility] [address] [id number] [address] [place] [address] Sep, [facility] [address] [id number] [address] [place] [address] Aug, [facility] [address] [id number] [address] [place] [address] Aug, [facility] [address] [id number] [address] [place] [address] May, [facility] [address] [id number] [address] [place] [address], [place] [address] Apr, [facility] [address] [id number] [address] [place] [address], [place] [address] Mar, [facility] [address] [id number] [address] [place] [address], [place] [address] Mar, [facility] [address] [id number] [address] [place] [address], [place] [address] Dec, [facility] [address] [id number] [address] [place] [address], [place] [address] Sep, [facility] [address] [id number] [address] [place] [address], [place] [address] 2010 [facility] [address] [id number] [place] [address], [place] [address] 2010 [facility] [address] [id number] [address] [place] [address], [place] [address] 11 Jan, 2010 [facility] [address] [id number] [address] [place] [address], [place] [address] 08 Jan, 2010 [facility] [address] [id number] [address] [place] [address], [place] [address] 10 Nov, 2009 [facility] [address] [id number] [address] [place] [address], [place] [address] 15 Feb, 2009 [facility] [address] [id number] [address] [place] [address] 15 Feb, 2009 [facility] [address] [id number] [address] [place] [address], [place] [address] 16 Jan, 2009 [facility] [address] [id number] [address] [place] [address], [place] [address] 16 Jan, 2009 [facility] [address] [id number] [address] [place] [address], [place] [address] 13 Dec, 2008 [facility] [address] [facility] [id number] [address] [place] [address] Dec, [facility] [address] [facility] [id number] [address] [place] [address] Nov, [facility] [address] [facility] [id number] [address] [place] [id number] Oct, [facility] [address] [facility] [id number] [address] [place] [id number] Sep, [facility] [address] [facility] [id number] [address] [place] [phone] Aug, IMMUNIZATIONS No Known Immunizations SOCIAL HISTORY [...] replacement 2018 Hospitalization History surgeries Hospitalization History pneumonia-[facility] 05/2018
--- OUTSIDE RECORDS SUMMARY | 2019-05-19 20:59 | XMS REPORT ---
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 Active 241021918 Problem Diabetes type 2, controlled E11.9 Ac tive 05859669 Problem Other chronic pain G89.29 Active 8 6781709 Problem Other elevated white blood cell (WBC) count D72.82 8 Active 543821137 Problem Type 2 diabetes mellitus with hyperglycemia E11.65 Active 300039057 Problem residential current use of insulin Z79.4 Active 974126400 Problem Controlled type 2 diabetes m ellitus without complication, without long- term current use of insulin E11.9 Active 838019834 Problem Type 2 diabetes mellitus without complications E11 .9 Active [id number] ALLERGIES No Information ENCOUNTERS Encounter Location Date Diagnosis [place] [address] [place] [id number] [address] [place] [address] July, [place] [address] [facility] [id number] [address] [place] [address] May, Type 2 diabetes mellitus wit h other circulatory complications E11.59 and Viral bronchitis J20.8 [place] [address] [facility] [id number] [address] [place] [address] May, Diabetes type 2, controlled E11.9 [place] [address] [facility] [id number] [address] [place] [address] May, [place] [address] [facility] [id number] [address] [place] [address] May, Type 2 diabetes mellitus wit h other circulatory complications E11.59 and Viral bronchitis J20.8 [place] [address] [place] [id number] [address] [place] [address] Apr, [facility] [address] [facility] [id number] [address] [place] [address] Feb, Type 2 diabetes mellitus wit h hyperglycemia E11.65 [facility] [address] [facility] [id number] [address] [place] [address] Jan, Type 2 diabetes mellitus wit h other circulatory complications E11.59 [facility] [address] [facility] [id number] [address] [place] [address] Nov, [place] [address] [facility] [id number] [address] [place] [address] Oct, Other elevated white blood c ell (WBC) count D72.828 and Type 2 diabetes mellitus with other circulatory complications E11.59 [place] [address] [facility] [id number] [address] [place] [address] Sep, [place] [address] [facility] [id number] [address] [place] [address] Sep, Diabetes type 2, controlled E11.9 [place] [address] [facility] [id number] [address] [place] [address] Aug, Type 2 diabetes mellitus wit h hyperglycemia E11.65 [place] [address] [facility] [id number] [address] [place] [address] July, [place] [address] [facility] [id number] [address] [place] [address] Jun, Diabetes type 2, controlled E11.9 ; Other chronic pain G89.29 ; Pain in left knee M25.562 and Pain in right knee M25.561 [place] [address] [facility] [id number] [address] [place] [address] May, [place] [address] [place] [id number] [address] [place] [address] Feb, Other viral agents as the ca use of diseases classified elsewhere B97.89 and Acute upper respiratory infection, unspecified J06.9 [place] [address] [place] [id number] [address] [place] [address] Feb, [facility] [address] [id number] [address] [place] [address] Feb, Type 2 diabetes mellitus wit hout complications E11.9 and residential current use of insulin Z79.4 [facility] [address] [id number] [address] [place] [address] Dec, [facility] [address] [id number] [address] [place] [address] Dec, [facility] [address] [id number] [address] [place] [address] Nov, Type 2 diabetes mellitus wit hout complications E11.9 and residential current use of insulin Z79.4 [facility] [address] [facility] [id number] [address] [place] [address] Nov, [facility] [address] [id number] [address] [place] [address] Nov, Controlled type 2 diabetes m ellitus without complication, without long-term current use of insulin E11.9 [facility] [address] [id number] [address] [place] [address] Nov, Controlled type 2 diabetes m ellitus without complication, without long-term current use of insulin E11.9 [facility] [address] [id number] [address] [place] [address] Nov, Type 2 diabetes mellitus wit h other circulatory complications E11.59 [facility] [address] [id number] [address] [place] [address] Oct, Type 2 diabetes mellitus wit h hyperglycemia E11.65 [facility] [address] [id number] [address] [place] [address] Oct, [facility] [address] [facility] [id number] [address] [place] [address] Oct, [facility] [address] [facility] [id number] [address] [place] [address] Oct, Type 2 diabetes mellitus wit hout complications E11.9 [facility] [address] [facility] [id number] [address] [place] [address] Sep, Type 2 diabetes mellitus wit h hyperglycemia E11.65 [place] [address] [facility] [id number] [address] [place] [address] Sep, Type 2 diabetes mellitus wit h other circulatory complications E11.59 [place] [address] [facility] [id number] [address] [place] [address] Aug, [place] [address] [facility] [id number] [address] [place] [address] July, Controlled type 2 diabetes m ellitus without complication, without long-term current use of insulin E11.9 [place] [address] [facility] [id number] [address] [place] [address] May, [place] [address] [facility] [id number] [address] [place] [address] Feb, Controlled type 2 diabetes m ellitus without complication, without long-term current use of insulin E11.9 [place] [address] [facility] [id number] [address] [place] [address] Jan, Controlled type 2 diabetes m ellitus without complication, without long-term current use of insulin E11.9 [place] [address] [facility] [id number] [address] [place] [address] Jan, Type 2 diabetes mellitus wit h hyperglycemia E11.65 and 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 [place] [address] [facility] [id number] [address] [place] [address] Nov, Diabetes type 2, controlled E11.9 [place] [address] [facility] [id number] [address] [place] [address] Aug, Type 2 diabetes mellitus wit h other circulatory complications E11.59 and Hypertension, essential I10 [place] [address] [facility] [id number] [address] [place] [address] July, Type 2 diabetes mellitus wit h hyperglycemia E11.65 and Hypertension, benign I10 [facility] [address] [id number] [address] [place] [address] May, Type 2 diabetes mellitus wit h other circulatory complications E11.59 [facility] [address] [facility] [id number] [address] [place] [address] Apr, Diabetes type 2, controlled E11.9 [facility] [address] [id number] [address] [place] [address] Jan, Type 2 diabetes mellitus wit h other circulatory complications E11.59 [facility] [address] [id number] [address] [place] [address] Dec, Type 2 diabetes mellitus wit h other circulatory complications E11.59 [facility] [address] [facility] [id number] [address] [place] [address] Aug, Diabetes 250.00 [facility] [address] [id number] [address] [place] [address] July, Diabetes 250.00 [facility] [address] [id number] [address] [place] [address] Jun, [facility] [address] [facility] [id number] [address] [place] [address] Jun, [facility] [address] [facility] [id number] [address] [place] [address] Jun, [facility] [address] [id number] [address] [place] [address] Jun, [facility] [address] [id number] [address] [place] [address] Jun, [facility] [address] [facility] [id number] [address] [place] [address] May, [facility] [address] [facility] [id number] [address] [place] [address] May, [facility] [address] [id number] [address] [place] [address], [place] [address] Apr, [facility] [address] [id number] [address] [place] [address], [place] [address] Apr, [facility] [address] [id number] [address] [place] [address], [place] [address] Mar, [facility] [address] [id number] [address] [place] [address], [place] [address] Mar, [facility] [address] [id number] [address] [place] [address], [place] [address] Feb, [facility] [address] [id number] [address] [place] [address], [place] [address] Feb, [facility] [address] [id number] [address] [place] [address], [place] [address] Feb, [facility] [address] [id number] [address] [place] [address], [place] [address] Feb, [facility] [address] [id number] [address] [place] [address], [place] [address] Feb, [facility] [address] [id number] [address] [place] [address], [place] [address] Feb, [facility] [address] [id number] [address] [place] [address], [place] [address] Dec, [facility] [address] [id number] [address] [place] [address], [place] [address] Dec, [facility] [address] [id number] [address] [place] [address], [place] [address] 29 Nov, 2013 [facility] [address] [id number] [address] [place] [address], [place] [address] 29 Nov, 2013 [facility] [address] [id number] [address] [place] [address], [place] [address] 29 Nov, 2013 [facility] [address] [id number] [address] [place] [address], [place] [address] 29 Nov, 2013 [facility] [address] [id number] [facility] [place] [address] 17 Nov, 2013 [facility] [address] [id number] [facility] [place] [address] 17 Nov, 2013 [facility] [address] [id number] [address] [place] [address], [place] [address] Nov, [facility] [address] [id number] [address] [place] [address], [place] [address] Nov, [facility] [address] [id number] [address] [place] [address], [place] [address] Aug, [facility] [address] [id number] [address] [place] [address], [place] [address] Aug, [facility] [address] [id number] [address] [place] [address], [place] [address] Aug, [facility] [address] [id number] [address] [place] [address], [place] [address] Aug, [facility] [address] [id number] [address] [place] [address], [place] [address] July, [facility] [address] [id number] [address] [place] [address], [place] [address] July, [facility] [address] [id number] [address] [place] [address], [place] [address] Jun, [facility] [address] [id number] [address] [place] [address], [place] [address] Jun, [facility] [address] [id number] [address] [place] [address], [place] [address] Jun, [facility] [address] [id number] [address] [place] [address], [place] [address] 15 Jun, 2013 [facility] [address] [id number] [address] [place] [address], [place] [address] May, [facility] [address] [id number] [address] [place] [address], [place] [address] May, [facility] [address] [id number] [address] [place] [address], [place] [address] Apr, [facility] [address] [id number] [address] [place] [address], [place] [address] Apr, [facility] [address] [id number] [address] [place] [address], [place] [address] Mar, [facility] [address] [id number] [address] [place] [address], [place] [address] Mar, [facility] [address] [id number] [address] [place] [address], [place] [address] Mar, [facility] [address] [id number] [address] [place] [address], [place] [address] Mar, [facility] [address] [id number] [address] [place] [address], [place] [address] Feb, [facility] [address] [id number] [address] [place] [address], [place] [address] Feb, [facility] [address] [id number] [address] [place] [address], [place] [address] Jan, [facility] [address] [id number] [address] [place] [address], [place] [address] Jan, [facility] [address] [id number] [address] [place] [address], [place] [address] Dec, [facility] [address] [id number] [address] [place] [address], [place] [address] Dec, [facility] [address] [id number] [address] [place] [address], [place] [address] Dec, [facility] [address] [id number] [address] [place] [address], [place] [address] Dec, [facility] [address] [id number] [address] [place] [address], [place] [address] Nov, [facility] [address] [id number] [address] [place] [address], [place] [address] Sep, [facility] [address] [id number] [address] [place] [address], [place] [address] Sep, [facility] [address] [id number] [address] [place] [address], [place] [address] Aug, [facility] [address] [id number] [address] [place] [address], [place] [address] July, [facility] [address] [id number] [address] [place] [address], [place] [address] Jun, [facility] [address] [id number] [address] [place] [address], [place] [address] May, [facility] [address] [id number] [address] [place] [address], [place] [address] May, [facility] [address] [id number] [address] [place] [address], [place] [address] May, [facility] [address] [id number] [address] [place] [address], [place] [address] May, [facility] [address] [id number] [address] [place] [address], [place] [address] May, [facility] [address] [id number] [address] [place] [address], [place] [address] Feb, [facility] [address] [id number] [address] [place] [address], [place] [address] Feb, [facility] [address] [id number] [address] [place] [address], [place] [address] Jan, [facility] [address] [id number] [address] [place] [address], [place] [address] Jan, [facility] [address] [id number] [address] [place] [address], [place] [address] Jan, [facility] [address] [id number] [address] [place] [address] Jan, [facility] [address] [id number] [address] [place] [address], [place] [address] Jan, [facility] [address] [id number] [address] [place] [address] Jan, [facility] [address] [id number] [address] [place] [address], [place] [address] 18 Dec, 2011 [facility] [address] [id number] [address] [place] [address], [place] [address] 18 Dec, 2011 [facility] [address] [id number] [address] [place] [address], [place] [address] Dec, [facility] [address] [id number] [address] [place] [address], [place] [address] 18 Dec, 2011 [facility] [address] [id number] [address] [place] [address], [place] [address] Dec, [facility] [address] [id number] [address] [place] [address], [place] [address] 26 Nov, 2011 [facility] [address] [id number] [address] [place] [address], [place] [address] 18 Nov, 2011 [facility] [address] [id number] [address] [place] [address] 13 Nov, 2011 [facility] [address] [id number] [address] [place] [address] Sep, [facility] [address] [id number] [address] [place] [address] Aug, [facility] [address] [id number] [address] [place] [address] Aug, [facility] [address] [id number] [address] [place] [address] May, [facility] [address] [id number] [address] [place] [address], [place] [address] Apr, [facility] [address] [id number] [address] [place] [address], [place] [address] Mar, [facility] [address] [id number] [address] [place] [address], [place] [address] Mar, [facility] [address] [id number] [address] [place] [address], [place] [address] Dec, [facility] [address] [id number] [address] [place] [address], [place] [address] 11 Sep, 2010 [facility] [address] [id number] [address] [place] [address], [place] [address] 2010 [facility] [address] [id number] [address] [place] [address], [place] [address] 2010 [facility] [address] [id number] [address] [place] [address], [place] [address] 11 Jan, 2010 [facility] [address] [id number] [address] [place] [address], [place] [address] 08 Jan, 2010 [facility] [address] [id number] [address] [place] [address], [place] [address] 10 Nov, 2009 [facility] [address] [id number] [address] [place] [address], [place] [address] 15 Feb, 2009 [facility] [address] [id number] [address] [place] [address], [place] [address] 15 Feb, 2009 [facility] [address] [id number] [address] [place] [address], [place] [address] 16 Jan, 2009 [facility] [address] [id number] [address] [place] [address], [place] [address] 16 Jan, 2009 [facility] [address] [id number] [address] [place] [address], [place] [address] 13 Dec, 2008 [facility] [address] [id number] [address] [place] [address], [place] [address] 13 Dec, 2008 [facility] [address] [id number] [address] [place] [address], [place] [address] Nov, [facility] [address] [facility] [id number] [address] [place] [id number] Oct, [facility] [address] [facility] [id number] [address] [place] [id number] Sep, [facility] [address] [facility] [id number] [address] [place] [id number] Aug, IMMUNIZATIONS No Known Immunizations SOCIAL HISTORY Never Assessed REASON FOR VISIT EMR-[facility] PLAN OF CARE VITAL SIGNS MEDICATIONS Unknown [...] replacement 2017 Hospitalization History surgeries Hospitalization History pneumonia-[facility] 05/2018
--- OUTSIDE RECORDS SUMMARY | 2019-05-19 20:59 | XMS REPORT ---
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 Active 471515512 Problem Diabetes type 2, controlled E11.9 Ac tive 98335197 Problem Other chronic pain G89.29 Active 8 4073862 Problem Other elevated white blood cell (WBC) count D72.82 8 Active 892134474 Problem Type 2 diabetes mellitus with hyperglycemia E11.65 Active 838510060 Problem residential current use of insulin Z79.4 Active 774358007 Problem Controlled type 2 diabetes m ellitus without complication, without long- term current use of insulin E11.9 Active 835239228 Problem Type 2 diabetes mellitus without complications E11 .9 Active [id number] ALLERGIES No Information ENCOUNTERS Encounter Location Date Diagnosis [place] [address] [address] [facility] [id number] [address] [place] [phone] July, [place] [address] [facility] [id number] [address] [place] [address] May, Type 2 diabetes mellitus wit h other circulatory complications E11.59 and Viral bronchitis J20.8 [facility] [address] [facility] [id number] [address] [place] [phone] May, Diabetes type 2, controlled E11.9 [facility] [address] [facility] [id number] [address] [place] [phone] May, [place] [address] [address] [facility] [id number] [address] [place] [phone] 14 May, 2018 Type 2 diabetes mellitus wit h other circulatory complications E11.59 and Viral bronchitis J20.8 [place] [address] [address] [facility] [id number] [address] [place] [phone] Apr, [place] [address] [address] [facility] [id number] [address] [place] [phone] Feb, Type 2 diabetes mellitus wit h hyperglycemia E11.65 [place] [address] [address] [facility] [id number] [address] [place] [phone] Jan, Type 2 diabetes mellitus wit h other circulatory complications E11.59 [place] [address] [address] [facility] [id number] [address] [place] [phone] Nov, [place] [address] [address] [facility] [id number] [address] [place] [address] Oct, Other elevated white blood c ell (WBC) count D72.828 and Type 2 diabetes mellitus with other circulatory complications E11.59 [place] [address] [address] [facility] [id number] [address] [place] [phone] Sep, [place] [address] [address] [facility] [id number] [address] [place] [phone] Sep, Diabetes type 2, controlled E11.9 [place] [address] [address] [facility] [id number] [address] [place] [address] Aug, Type 2 diabetes mellitus wit h hyperglycemia E11.65 [place] [address] [address] [facility] [id number] [address] [place] [phone] July, [place] [address] [address] [facility] [id number] [address] [place] [address] Jun, Diabetes type 2, controlled E11.9 ; Other chronic pain G89.29 ; Pain in left knee M25.562 and Pain in right knee M25.561 [place] [address] [address] [facility] [id number] [address] [place] [phone] May, [place] [address] [address] [facility] [id number] [address] [place] [phone] Feb, Other viral agents as the ca use of diseases classified elsewhere B97.89 and Acute upper respiratory infection, unspecified J06.9 [facility] [address] [id number] [address] [place] [phone] Feb, [facility] [address] 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 [id number] [address] [place] [phone] Nov, [facility] [address] [id number] [address] [place] [phone] Nov, Controlled type 2 diabetes m ellitus without complication, without long-term current use of insulin E11.9 [place] [address] [address] [facility] [id number] [address] [place] [address] Nov, Controlled type 2 diabetes m ellitus without complication, without long-term current use of insulin E11.9 [place] [address] [address] [facility] [id number] [address] [place] [phone] Nov, Type 2 diabetes mellitus wit h other circulatory complications E11.59 [facility] [address] [id number] [address] [place] [phone] Oct, Type 2 diabetes mellitus wit h hyperglycemia E11.65 [facility] [address] [facility] [id number] [address] [place] [phone] Oct, [facility] [address] [facility] [id number] [address] [place] [phone] Oct, [facility] [address] [facility] [id number] [address] [place] [phone] Oct, Type 2 diabetes mellitus wit hout complications E11.9 [facility] [address] [facility] [id number] [address] [place] [phone] Sep, Type 2 diabetes mellitus wit h hyperglycemia E11.65 [facility] [address] [facility] [id number] [address] [place] [phone] Sep, Type 2 diabetes mellitus wit h other circulatory complications E11.59 [facility] [address] [facility] [id number] [address] [place] [phone] Aug, [place] [address] [address] [facility] [id number] [address] [place] [phone] July, Controlled type 2 diabetes m ellitus without complication, without long-term current use of insulin E11.9 [facility] [address] [facility] [id number] [address] [place] [phone] May, [facility] [address] [facility] [id number] [address] [place] [phone] Feb, Controlled type 2 diabetes m ellitus without complication, without long-term current use of insulin E11.9 [facility] [address] [facility] [id number] [address] [place] [phone] Jan, Controlled type 2 diabetes m ellitus without complication, without long-term current use of insulin E11.9 [facility] [address] [facility] [id number] [address] [place] [id number] Jan, Type 2 diabetes mellitus wit h hyperglycemia E11.65 and residential current use of insulin Z79.4 [facility] [address] [facility] [id number] [address] [place] [phone] Nov, Diabetes type 2, controlled E11.9 [facility] [address] [facility] [id number] [address] [place] [phone] Aug, Type 2 diabetes mellitus wit h other circulatory complications E11.59 and Hypertension, essential I10 [facility] [address] [id number] [address] [place] [id number] July, Type 2 diabetes mellitus wit h hyperglycemia E11.65 and Hypertension, benign I10 [facility] [address] [id number] [address] [place] [phone] May, Type 2 diabetes mellitus wit h other circulatory complications E11.59 [facility] [address] [id number] [address] [place] [id number] 03 Apr, 2015 Diabetes type 2, controlled E11.9 [facility] [address] [id number] [address] [place] [phone] Jan, Type 2 diabetes mellitus wit h other circulatory complications E11.59 [facility] [address] [id number] [address] [place] [phone] Dec, Type 2 diabetes mellitus wit h other circulatory complications E11.59 [facility] [address] [id number] [address] [place] [address] Aug, Diabetes 250.00 [facility] [address] [id number] [address] [place] [address] July, Diabetes 250.00 [facility] [address] [id number] [address] [place] [id number] 30 Jun, 2014 [facility] [address] [id number] [address] [place] [id number] Jun, [facility] [address] [id number] [address] [place] [id number] 28 Jun, 2014 [facility] [address] [id number] [address] [place] [id number] 14 Jun, 2014 [facility] [address] [id number] [address] [place] [phone] Jun, [facility] [address] [id number] [address] [place] [phone] May, [facility] [address] [id number] [address] [place] [phone] May, [facility] [address] [id number] [address] [place] [address], [place] [address] Apr, [facility] [address] [id number] [address] [place] [address], [place] [address] Apr, [facility] [address] [id number] [address] [place] [address], [place] [address] Mar, [facility] [address] [id number] [address] [place] [address], [place] [address] Mar, [facility] [address] [id number] [address] [place] [address], [place] [address] Feb, [facility] [address] [id number] [address] [place] [address], [place] [address] Feb, [facility] [address] [id number] [address] [place] [address], [place] [address] Feb, [facility] [address] [id number] [address] [place] [address], [place] [address] Feb, [facility] [address] [id number] [address] [place] [address], [place] [address] Feb, [facility] [address] [id number] [address] [place] [address], [place] [address] Feb, [facility] [address] [id number] [address] [place] [address], [place] [address] Dec, [facility] [address] [id number] [address] [place] [address], [place] [address] Dec, [facility] [address] [id number] [address] [place] [address], [place] [address] Nov, [facility] [address] [id number] [address] [place] [address], [place] [address] Nov, [facility] [address] [id number] [address] [place] [address], [place] [address] Nov, [facility] [address] [id number] [facility] [place] [address] 29 Nov, 2013 [facility] [address] [id number] [facility] [place] [address] 17 Nov, 2013 [facility] [address] [id number] [address] [place] [address], [place] [address] 17 Nov, 2013 [facility] [address] [id number] [address] [place] [address], [place] [address] Nov, [facility] [address] [id number] [address] [place] [address], [place] [address] Nov, [facility] [address] [id number] [address] [place] [address], [place] [address] Aug, [facility] [address] [id number] [address] [place] [address], [place] [address] Aug, [facility] [address] [id number] [address] [place] [address], [place] [address] Aug, [facility] [address] [id number] [address] [place] [address], [place] [address] Aug, [facility] [address] [id number] [address] [place] [address], [place] [address] July, [facility] [address] [id number] [address] [place] [address], [place] [address] July, [facility] [address] [id number] [address] [place] [address], [place] [address] Jun, [facility] [address] [id number] [address] [place] [address], [place] [address] Jun, [facility] [address] [id number] [address] [place] [address], [place] [address] Jun, [facility] [address] [id number] [address] [place] [address], [place] [address] 15 Jun, 2013 [facility] [address] [id number] [address] [place] [address], [place] [address] May, [facility] [address] [id number] [address] [place] [address], [place] [address] May, [facility] [address] [id number] [address] [place] [address], [place] [address] Apr, [facility] [address] [id number] [address] [place] [address], [place] [address] Apr, [facility] [address] [id number] [address] [place] [address], [place] [address] Mar, [facility] [address] [id number] [address] [place] [address], [place] [address] Mar, [facility] [address] [id number] [address] [place] [address], [place] [address] Mar, [facility] [address] [id number] [address] [place] [address], [place] [address] Mar, [facility] [address] [id number] [address] [place] [address], [place] [address] Feb, [facility] [address] [id number] [address] [place] [address], [place] [address] Feb, [facility] [address] [id number] [address] [place] [address], [place] [address] Jan, [facility] [address] [id number] [address] [place] [address], [place] [address] Jan, [facility] [address] [id number] [address] [place] [address], [place] [address] Dec, [facility] [address] [id number] [address] [place] [address], [place] [address] Dec, [facility] [address] [id number] [address] [place] [address], [place] [address] Dec, [facility] [address] [id number] [address] [place] [address], [place] [address] Dec, [facility] [address] [id number] [address] [place] [address], [place] [address] Nov, [facility] [address] [id number] [address] [place] [address], [place] [address] Sep, [facility] [address] [id number] [address] [place] [address], [place] [address] Sep, [facility] [address] [id number] [address] [place] [address], [place] [address] Aug, [facility] [address] [id number] [address] [place] [address], [place] [address] July, [facility] [address] [id number] [address] [place] [address], [place] [address] Jun, [facility] [address] [id number] [address] [place] [address], [place] [address] May, [facility] [address] [id number] [address] [place] [address], [place] [address] May, [facility] [address] [id number] [address] [place] [address], [place] [address] May, [facility] [address] [id number] [address] [place] [address], [place] [address] May, [facility] [address] [id number] [address] [place] [address], [place] [address] May, [facility] [address] [id number] [address] [place] [address], [place] [address] Feb, [facility] [address] [id number] [address] [place] [address], [place] [address] Feb, [facility] [address] [id number] [address] [place] [address], [place] [address] Jan, [facility] [address] [id number] [address] [place] [address], [place] [address] Jan, [facility] [address] [id number] [address] [place] [address], [place] [address] Jan, [facility] [address] [id number] [address] [place] [address], [place] [address] Jan, [facility] [address] [id number] [address] [place] [address], [place] [address] Jan, [facility] [address] [id number] [address] [place] [address], [place] [address] Jan, [facility] [address] [id number] [address] [place] [address], [place] [address] Dec, [facility] [address] [id number] [address] [place] [address], [place] [address] Dec, [facility] [address] [id number] [address] [place] [address], [place] [address] Dec, [facility] [address] [id number] [address] [place] [address], [place] [address] 18 Dec, 2011 [facility] [address] [id number] [address] [place] [address], [place] [address] Dec, [facility] [address] [id number] [address] [place] [address], [place] [address] 26 Nov, 2011 [facility] [address] [id number] [address] [place] [address] 18 Nov, 2011 [facility] [address] [id number] [address] [place] [id number] 13 Nov, 2011 [facility] [address] [id number] [address] [place] [id number] Sep, [facility] [address] [id number] [address] [place] [address], [place] [address] Aug, [facility] [address] [id number] [address] [place] [id number] Aug, [facility] [address] [id number] [address] [place] [id number] May, [facility] [address] [id number] [address] [place] [id number] 29 Apr, 2011 [facility] [address] [id number] [address] [place] [address], [place] [address] Mar, [facility] [address] [id number] [address] [place] [id number] Mar, [facility] [address] [id number] [address] [place] [address], [place] [address] Dec, [facility] [address] [id number] [address] [place] [address], [place] [address] Sep, [facility] [address] [id number] [address] [place] [address], [place] [address] 2010 [facility] [address] [id number] [address] [place] [address], [place] [address] 2010 [facility] [address] [id number] [address] [place] [id number] 11 Jan, 2010 [facility] [address] [id number] [address] [place] [address], [place] [phone] 08 Jan, 2010 [facility] [address] [id number] [address] [place] [address], [place] [address] 10 Nov, 2009 [facility] [address] [id number] [address] [place] [address], [place] [address] 15 Feb, 2009 [facility] [address] [id number] [address] [place] [address], [place] [address] 15 Feb, 2009 [facility] [address] [id number] [address] [place] [id number] 16 Jan, 2009 [facility] [address] [id number] [address] [place] [id number] 16 Jan, 2009 [facility] [address] [id number] [address] [place] [id number] 13 Dec, 2008 [facility] [address] [id number] [address] [place] [id number] 13 Dec, 2008 [facility] [address] [facility] [id number] [address] [place] [phone] Nov, [facility] [address] [facility] [id number] [address] [place] [phone] Oct, [facility] [address] [facility] [id number] [address] [place] [phone] Sep, [facility] [address] [facility] [id number] [address] [place] [phone] Aug, IMMUNIZATIONS No Known Immunizations SOCIAL HISTORY [...] replacement 2018 Hospitalization History surgeries Hospitalization History pneumonia-[facility] 05/2018
--- OUTSIDE RECORDS SUMMARY | 2019-05-19 20:59 | XMS REPORT ---
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 Active 374661219 Problem Diabetes type 2, controlled E11.9 Ac tive 75365978 Problem Other chronic pain G89.29 Active 8 0847177 Problem Other elevated white blood cell (WBC) count D72.82 8 Active 556553516 Problem Type 2 diabetes mellitus with hyperglycemia E11.65 Active 916482651 Problem halfway current use of insulin Z79.4 Active 311267244 Problem Controlled type 2 diabetes m ellitus without complication, without long- term current use of insulin E11.9 Active 241397913 Problem Type 2 diabetes mellitus without complications E11 .9 Active [id number] ALLERGIES No Known Allergies ENCOUNTERS Encounter Location Date Diagnosis [place] [address] [address] [facility] [id number] [address] [place] [phone] July, [place] [address] [place] [id number] [address] [place] [address] May, Type 2 diabetes mellitus wit h other circulatory complications E11.59 and Viral bronchitis J20.8 [facility] [address] [facility] [id number] [address] [place] [phone] May, Diabetes type 2, controlled E11.9 [facility] [address] [facility] [id number] [address] [place] [phone] May, [place] [address] [facility] [id number] [address] [place] [phone] 14 May, 2018 Type 2 diabetes mellitus wit h other circulatory complications E11.59 and Viral bronchitis J20.8 [place] [address] [address] [facility] [id number] [address] [place] [address] Apr, [place] [address] [address] [facility] [id number] [address] [place] [phone] Feb, Type 2 diabetes mellitus wit h hyperglycemia E11.65 [place] [address] [address] [facility] [id number] [address] [place] [phone] Jan, Type 2 diabetes mellitus wit h other circulatory complications E11.59 [place] [address] [address] [facility] [id number] [address] [place] [address] Nov, [place] [address] [address] [facility] [id number] [address] [place] [id number] Oct, Other elevated white blood c ell (WBC) count D72.828 and Type 2 diabetes mellitus with other circulatory complications E11.59 [place] [address] [address] [facility] [id number] [address] [place] [address] Sep, [place] [address] [address] [facility] [id number] [address] [place] [phone] Sep, Diabetes type 2, controlled E11.9 [place] [address] [address] [facility] [id number] [address] [place] [address] Aug, Type 2 diabetes mellitus wit h hyperglycemia E11.65 [place] [address] [address] [facility] [id number] [address] [place] [address] July, [place] [address] [address] [facility] [id number] [address] [place] [address] Jun, Diabetes type 2, controlled E11.9 ; Other chronic pain G89.29 ; Pain in left knee M25.562 and Pain in right knee M25.561 [place] [address] [address] [facility] [id number] [address] [place] [address] May, [place] [address] [address] [facility] [id number] [address] [place] [address] Feb, Other viral agents as the ca use of diseases classified elsewhere B97.89 and Acute upper respiratory infection, unspecified J06.9 [facility] [address] [id number] [address] [place] [phone] Feb, [facility] [address] [facility] [id number] [address] [place] [phone] Feb, Type 2 diabetes mellitus wit hout complications E11.9 and halfway current use of insulin Z79.4 [facility] [address] [id number] [address] [place] [id number] Dec, [facility] [address] [id number] [address] [place] [phone] Dec, [facility] [address] [facility] [id number] [address] [place] [phone] Nov, Type 2 diabetes mellitus wit hout complications E11.9 and halfway current use of insulin Z79.4 [place] [address] [address] [facility] [id number] [address] [place] [address] Nov, [facility] [address] [id number] [address] [place] [address] Nov, Controlled type 2 diabetes m ellitus without complication, without long-term current use of insulin E11.9 [place] [address] [address] [facility] [id number] [address] [place] [phone] Nov, Controlled type 2 diabetes m ellitus without complication, without long-term current use of insulin E11.9 [facility] [address] [facility] [id number] [address] [place] [address] Nov, Type 2 diabetes mellitus wit h other circulatory complications E11.59 [facility] [address] [id number] [address] [place] [address] Oct, Type 2 diabetes mellitus wit h hyperglycemia E11.65 [facility] [address] [facility] [id number] [address] [place] [phone] Oct, [facility] [address] [facility] [id number] [address] [place] [phone] Oct, [facility] [address] [facility] [id number] [address] [place] [address] Oct, Type 2 diabetes mellitus wit hout complications E11.9 [facility] [address] [facility] [id number] [address] [place] [address] Sep, Type 2 diabetes mellitus wit h hyperglycemia E11.65 [place] [address] [address] [facility] [id number] [address] [place] [phone] Sep, Type 2 diabetes mellitus wit h other circulatory complications E11.59 [place] [address] [address] [facility] [id number] [address] [place] [phone] Aug, [place] [address] [address] [facility] [id number] [address] [place] [phone] July, Controlled type 2 diabetes m ellitus without complication, without long-term current use of insulin E11.9 [place] [address] [address] [facility] [id number] [address] [place] [phone] May, [facility] [address] [facility] [id number] [address] [place] [phone] Feb, Controlled type 2 diabetes m ellitus without complication, without long-term current use of insulin E11.9 [place] [address] [address] [facility] [id number] [address] [place] [phone] Jan, Controlled type 2 diabetes m ellitus without complication, without long-term current use of insulin E11.9 [place] [address] [address] [facility] [id number] [address] [place] [address] Jan, Type 2 diabetes mellitus wit h hyperglycemia E11.65 and 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 [place] [address] [address] [facility] [id number] [address] [place] [phone] Nov, Diabetes type 2, controlled E11.9 [facility] [address] [facility] [id number] [address] [place] [phone] Aug, Type 2 diabetes mellitus wit h other circulatory complications E11.59 and Hypertension, essential I10 [facility] [address] [id number] [address] [place] [address] July, Type 2 diabetes mellitus wit h hyperglycemia E11.65 and Hypertension, benign I10 [facility] [address] [id number] [address] [place] [phone] May, Type 2 diabetes mellitus wit h other circulatory complications E11.59 [facility] [address] [id number] [address] [place] [phone] 03 Apr, 2015 Diabetes type 2, controlled E11.9 [facility] [address] [id number] [address] [place] [phone] Jan, Type 2 diabetes mellitus wit h other circulatory complications E11.59 [facility] [address] [id number] [address] [place] [address] Dec, Type 2 diabetes mellitus wit h other circulatory complications E11.59 [facility] [address] [id number] [address] [place] [address] Aug, Diabetes 250.00 [facility] [address] [id number] [address] [place] [address] July, Diabetes 250.00 [facility] [address] [id number] [address] [place] [phone] 30 Jun, 2014 [facility] [address] [id number] [address] [place] [phone] Jun, [facility] [address] [id number] [address] [place] [phone] Jun, [facility] [address] [id number] [address] [place] [phone] 14 Jun, 2014 [facility] [address] [id number] [address] [place] [phone] Jun, [facility] [address] [id number] [address] [place] [phone] May, [facility] [address] [id number] [address] [place] [address] [place] [address] May, [facility] [address] [id number] [address] [place] [address], [place] [address] Apr, [facility] [address] [id number] [address] [place] [address], [place] [address] Apr, [facility] [address] [id number] [address] [place] [address], [place] [address] Mar, [facility] [address] [id number] [address] [place] [address], [place] [address] Mar, [facility] [address] [id number] [address] [place] [address], [place] [address] Feb, [facility] [address] [id number] [address] [place] [address], [place] [address] Feb, [facility] [address] [id number] [address] [place] [address], [place] [address] Feb, [facility] [address] [id number] [address] [place] [address], [place] [address] Feb, [facility] [address] [id number] [address] [place] [address], [place] [address] Feb, [facility] [address] [id number] [address] [place] [address], [place] [address] Feb, [facility] [address] [id number] [address] [place] [address], [place] [address] Dec, [facility] [address] [id number] [address] [place] [address], [place] [address] Dec, [facility] [address] [id number] [address] [place] [address], [place] [address] Nov, [facility] [address] [id number] [address] [place] [address], [place] [address] Nov, [facility] [address] [id number] [address] [place] [address], [place] [address] Nov, [facility] [address] [id number] [address] [address] 29 Nov, 2013 [facility] [address] [id number] [address] [address] 17 Nov, 2013 [facility] [address] [id number] [address] [place] [address], [place] [address] 17 Nov, 2013 [facility] [address] [id number] [address] [place] [address], [place] [address] 12 Nov, 2013 [facility] [address] [id number] [address] [place] [address], [place] [address] Nov, [facility] [address] [id number] [address] [place] [address], [place] [address] Aug, [facility] [address] [id number] [address] [place] [address], [place] [address] Aug, [facility] [address] [id number] [address] [place] [address], [place] [address] Aug, [facility] [address] [id number] [address] [place] [address], [place] [address] Aug, [facility] [address] [id number] [address] [place] [address], [place] [address] July, [facility] [address] [id number] [address] [place] [address], [place] [address] July, [facility] [address] [id number] [address] [place] [address], [place] [address] 15 Jun, 2013 [facility] [address] [id number] [address] [place] [address], [place] [address] 15 Jun, 2013 [facility] [address] [id number] [address] [place] [address], [place] [address] 15 Jun, 2013 [facility] [address] [id number] [address] [place] [address], [place] [address] 15 Jun, 2013 [facility] [address] [id number] [address] [place] [address], [place] [address] May, [facility] [address] [id number] [address] [place] [address], [place] [address] May, [facility] [address] [id number] [address] [place] [address], [place] [address] Apr, [facility] [address] [id number] [address] [place] [address], [place] [address] Apr, [facility] [address] [id number] [address] [place] [address], [place] [address] Mar, [facility] [address] [id number] [address] [place] [address], [place] [address] Mar, [facility] [address] [id number] [address] [place] [address], [place] [address] Mar, [facility] [address] [id number] [address] [place] [address], [place] [address] Mar, [facility] [address] [id number] [address] [place] [address], [place] [address] Feb, [facility] [address] [id number] [address] [place] [address], [place] [address] Feb, [facility] [address] [id number] [address] [place] [address], [place] [address] Jan, [facility] [address] [id number] [address] [place] [address], [place] [address] Jan, [facility] [address] [id number] [address] [place] [address], [place] [address] Dec, [facility] [address] [id number] [address] [place] [address], [place] [address] Dec, [facility] [address] [id number] [address] [place] [address], [place] [address] Dec, [facility] [address] [id number] [address] [place] [address], [place] [address] Dec, [facility] [address] [id number] [address] [place] [address], [place] [address] Nov, [facility] [address] [id number] [address] [place] [address], [place] [address] Sep, [facility] [address] [id number] [address] [place] [address], [place] [address] Sep, [facility] [address] [id number] [address] [place] [address], [place] [address] Aug, [facility] [address] [id number] [address] [place] [address], [place] [address] July, [facility] [address] [id number] [address] [place] [address], [place] [address] Jun, [facility] [address] [id number] [address] [place] [address], [place] [address] May, [facility] [address] [id number] [address] [place] [address], [place] [address] May, [facility] [address] [id number] [address] [place] [address], [place] [address] May, [facility] [address] [id number] [address] [place] [address], [place] [address] May, [facility] [address] [id number] [address] [place] [address], [place] [address] May, [facility] [address] [id number] [address] [place] [address], [place] [address] Feb, [facility] [address] [id number] [address] [place] [address], [place] [address] Feb, [facility] [address] [id number] [address] [place] [address], [place] [address] Jan, [facility] [address] [id number] [address] [place] [address], [place] [address] Jan, [facility] [address] [id number] [address] [place] [address], [place] [address] Jan, [facility] [address] [id number] [address] [place] [address], [place] [address] Jan, [facility] [address] [id number] [address] [place] [address], [place] [address] Jan, [facility] [address] [id number] [address] [place] [address], [place] [address] Jan, [facility] [address] [id number] [address] [place] [address], [place] [address] 18 Dec, 2011 [facility] [address] [id number] [address] [place] [address], [place] [address] 18 Dec, 2011 [facility] [address] [id number] [address] [place] [address], [place] [address] 18 Dec, 2011 [facility] [address] [id number] [address] [place] [address], [place] [address] 18 Dec, 2011 [facility] [address] [id number] [address] [place] [address], [place] [address] Dec, [facility] [address] [id number] [address] [place] [address], [place] [address] 26 Nov, 2011 [facility] [address] [id number] [address] [place] [address], [place] [address] 18 Nov, 2011 [facility] [address] [id number] [address] [place] [address], [place] [address] 13 Nov, 2011 [facility] [address] [id number] [address] [place] [address], [place] [address] Sep, [facility] [address] [id number] [address] [place] [address], [place] [address] Aug, [facility] [address] [id number] [address] [place] [address], [place] [address] Aug, [facility] [address] [id number] [address] [place] [address], [place] [address] May, [facility] [address] [id number] [address] [place] [address] [place] [address] 29 Apr, 2011 [facility] [address] [id number] [address] [place] [address], [place] [address] Mar, [facility] [address] [id number] [address] [place] [address], [place] [address] Mar, [facility] [address] [id number] [address] [place] [address], [place] [address] Dec, [facility] [address] [id number] [address] [place] [address], [place] [address] 11 Sep, 2010 [facility] [address] [id number] [address] [place] [address], [place] [address] 2010 [facility] [address] [id number] [address] [place] [address] [address] 2010 [facility] [address] [id number] [address] [place] [address], [place] [address] 11 Jan, 2010 [facility] [address] [id number] [address] [place] [address], [place] [address] 08 Jan, 2010 [facility] [address] [id number] [address] [place] [address], [place] [id number] 10 Nov, 2009 [facility] [address] [id number] [address] [place] [address], [place] [id number] 15 Feb, 2009 [facility] [address] [id number] [address] [place] [address], [place] [id number] 15 Feb, 2009 [facility] [address] [id number] [address] [place] [phone] 16 Jan, 2009 [facility] [address] [id number] [address] [place] [phone] 16 Jan, 2009 [facility] [address] [id number] [address] [place] [phone] 13 Dec, 2008 [facility] [address] [id number] [address] [place] [id number] 13 Dec, 2008 [facility] [address] [facility] [id number] [address] [place] [id number] Nov, [facility] [address] [facility] [id number] [address] [place] [phone] Oct, [facility] [address] [facility] [id number] [address] [place] [phone] Sep, [facility] [address] [facility] [id number] [address] [place] [phone] Aug, IMMUNIZATIONS No Known Immunizations SOCIAL HISTORY Never Assessed REASON FOR VISIT DM -Guzman MCKINLEY, Couple of days had this irritation in his throat, slight cough -Guzman MCKINLEY PLAN OF CARE VITAL SIGNS Height 71 in 2018-05-17 Weight 277 lbs 2018-05-17 Temperature 98.1 degrees Fahrenheit 2018-05-17 Heart Rate 86 bpm 2018-05-17 Respiratory Rate 20 2018-05-17 Oximetry 94 % 2018-05-17 BMI 38.63 kg/m2 2018-05-17 Blood pressure systolic 140 mmHg 2018-05-17 Blood pressure diastolic 70 mmHg 2018-05-17 MEDICATIONS Medication Instructions Dosage Frequency Start Date End Date Duration S tatus Aspirin 81 MG Orally Once a day 1 tablet 24h Active Fish Oil 1000 MG Orally Once a day 1 capsule 24h Active Amlodipine Besylate 5 mg 1 tablet 24h 90 Active Metoprolol Tartrate 50MG TAKE ONE TABLET BY MOUTH TWICE DA GERHARD WITH MEALS 90 Active NovoLog Flexpen 100 UNIT/ML Subcutaneous before meals inject 15 uni ts Sep, Active Metformin HCl 1000 mg 1 tablet with meals 12h 90 Active Amaryl 4 MG Orally 2 times per day 1 tablet 90 Active Lisinopril-Hydrochlorothiazide 20-12.5MG TAKE TW O TABLETS BY MOUTH ONCE DAILY 90 Active Allopurinol 300 MG Orally Once a day 1 tablet 24h 30 day(s) Active Pen Mullen 32G X 4 MM subcutaneously 4 times a day as directed wit h insulin 6h Sep, Active Levemir FlexTouch 100 UNIT/ML DX E11.59 2 times a day 50 units 12h 30 Active ProAir HFA 108 (90 Base) MCG/ACT Inhalation every 6 hrs 2 puffs as needed 6h 14 May, 2018 Active Lovastatin 20MG 1 tablet 24h Active RESULTS Name Result Date Reference Range A1C (IN HOUSE) 2018-05-17 A1C IN HOUSE 7.1 4.3 - 5.6 % Previous A1c 7.1 Lot [id number] Exp date 12/2019 PROCEDURES Procedure Date Ordered Result Body Site [facility] VISIT ESTABLISHED PATIENT May 17, 2018 GLYCATED HEMOGLOBIN TEST May 17, 2018 INSTRUCTIONS MEDICATIONS ADMINISTERED No Known Medications MEDICAL (GENERAL) HISTORY Type Description Date Medical History hypertension Medical History type II diabetes Medical History hyperlipidemia Medical History chronic pain-knees 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
--- OUTSIDE RECORDS SUMMARY | 2019-05-19 20:59 | XMS REPORT ---
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 Active 131389540 Problem Diabetes type 2, controlled E11.9 Ac tive 07762000 Problem Other chronic pain G89.29 Active 8 3992504 Problem Other elevated white blood cell (WBC) count D72.82 8 Active 918330203 Problem Type 2 diabetes mellitus with hyperglycemia E11.65 Active 377340903 Problem intermediate current use of insulin Z79.4 Active 121620616 Problem Controlled type 2 diabetes m ellitus without complication, without long- term current use of insulin E11.9 Active 944935422 Problem Type 2 diabetes mellitus without complications E11 .9 Active 782015415 ALLERGIES No Information ENCOUNTERS Encounter Location Date Diagnosis [place] [address] [facility] [id number] [address] [place] [id number] July, [place] [id number] [facility] [id number] [address] [place] [address] May, Type 2 diabetes mellitus wit h other circulatory complications E11.59 and Viral bronchitis J20.8 [facility] [address] [facility] [id number] [address] [place] [address] May, Diabetes type 2, controlled E11.9 [facility] [address] [facility] [id number] [address] [place] [address] May, [place] [address] [facility] [id number] [address] [place] [id number] 14 May, 2018 Type 2 diabetes mellitus wit h other circulatory complications E11.59 and Viral bronchitis J20.8 [place] [address] [facility] [id number] [address] [place] [address] Apr, [place] [address] [facility] [id number] [address] [place] [address] Feb, Type 2 diabetes mellitus wit h hyperglycemia E11.65 [place] [address] [facility] [id number] [address] [place] [address] Jan, Type 2 diabetes mellitus wit h other circulatory complications E11.59 [place] [address] [facility] [id number] [address] [place] [address] Nov, [place] [address] [facility] [id number] [address] [place] [address] Oct, Other elevated white blood c ell (WBC) count D72.828 and Type 2 diabetes mellitus with other circulatory complications E11.59 [place] [address] [facility] [id number] [address] [place] [address] Sep, [place] [address] [facility] [id number] [address] [place] [address] Sep, Diabetes type 2, controlled E11.9 [place] [address] [facility] [id number] [address] [place] [address] Aug, Type 2 diabetes mellitus wit h hyperglycemia E11.65 [place] [address] [facility] [id number] [address] [place] [address] July, [place] [address] [facility] [id number] [address] [place] [address] Jun, Diabetes type 2, controlled E11.9 ; Other chronic pain G89.29 ; Pain in left knee M25.562 and Pain in right knee M25.561 [place] [address] [facility] [id number] [address] [place] [address] May, [place] [address] [facility] [id number] [address] [place] [address] Feb, Other viral agents as the ca use of diseases classified elsewhere B97.89 and Acute upper respiratory infection, unspecified J06.9 [facility] [address] [id number] [address] [place] [address] Feb, [facility] [address] [facility] [id number] [address] [place] [address] Feb, Type 2 diabetes mellitus wit hout complications E11.9 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 [facility] [address] [id number] [address] [place] [id number] Dec, [facility] [address] [id number] [address] [place] [address] Dec, [facility] [address] [facility] [id number] [address] [place] [address] Nov, Type 2 diabetes mellitus wit hout complications E11.9 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 [place] [address] [facility] [id number] [address] [place] [address] Nov, [facility] [address] [id number] [address] [place] [address] Nov, Controlled type 2 diabetes m ellitus without complication, without long-term current use of insulin E11.9 [place] [address] [facility] [id number] [address] [place] [address] Nov, Controlled type 2 diabetes m ellitus without complication, without long-term current use of insulin E11.9 [place] [address] [facility] [id number] [address] [place] [address] Nov, Type 2 diabetes mellitus wit h other circulatory complications E11.59 [facility] [address] [id number] [address] [place] [address] Oct, Type 2 diabetes mellitus wit h hyperglycemia E11.65 [facility] [address] [facility] [id number] [address] [place] [address] Oct, [facility] [address] [facility] [id number] [address] [place] [phone] Oct, [facility] [address] [facility] [id number] [address] [place] [address] Oct, Type 2 diabetes mellitus wit hout complications E11.9 [facility] [address] [facility] [id number] [address] [place] [address] Sep, Type 2 diabetes mellitus wit h hyperglycemia E11.65 [facility] [address] [facility] [id number] [address] [place] [address] Sep, Type 2 diabetes mellitus wit h other circulatory complications E11.59 [facility] [address] [facility] [id number] [address] [place] [address] Aug, [place] [address] [facility] [id number] [address] [place] [address] July, Controlled type 2 diabetes m ellitus without complication, without long-term current use of insulin E11.9 [facility] [address] [facility] [id number] [address] [place] [address] May, [facility] [address] [facility] [id number] [address] [place] [address] Feb, Controlled type 2 diabetes m ellitus without complication, without long-term current use of insulin E11.9 [facility] [address] [facility] [id number] [address] [place] [address] Jan, Controlled type 2 diabetes m ellitus without complication, without long-term current use of insulin E11.9 [facility] [address] [facility] [id number] [address] [place] [address] Jan, Type 2 diabetes mellitus wit h hyperglycemia E11.65 and intermediate current use of insulin Z79.4 [facility] [address] [facility] [id number] [address] [place] [address] Nov, Diabetes type 2, controlled E11.9 [facility] [address] [facility] [id number] [address] [place] [address] Aug, Type 2 diabetes mellitus wit h other circulatory complications E11.59 and Hypertension, essential I10 [facility] [address] [id number] [address] [place] [address] July, Type 2 diabetes mellitus wit h hyperglycemia E11.65 and Hypertension, benign I10 [facility] [address] [id number] [address] [place] [id number] May, Type 2 diabetes mellitus wit h other circulatory complications E11.59 [facility] [address] [id number] [address] [place] [id number] 03 Apr, 2015 Diabetes type 2, controlled E11.9 [facility] [address] [id number] [address] [place] [address] Jan, Type 2 diabetes mellitus wit h other circulatory complications E11.59 [facility] [address] [id number] [address] [place] [address] Dec, Type 2 diabetes mellitus wit h other circulatory complications E11.59 [facility] [address] [id number] [address] [place] [address] Aug, Diabetes 250.00 [facility] [address] [id number] [address] [place] [address] July, Diabetes 250.00 [facility] [address] [id number] [address] [place] [address] 30 Jun, 2014 [facility] [address] [id number] [address] [place] [address] Jun, [facility] [address] [id number] [address] [place] [id number] 28 Jun, 2014 [facility] [address] [id number] [address] [place] [id number] 14 Jun, 2014 [facility] [address] [id number] [address] [place] [id number] Jun, [facility] [address] [id number] [address] [place] [phone] May, [facility] [address] [id number] [address] [place] [address] May, [facility] [address] [id number] [address] [place] [address], [place] [address] Apr, [facility] [address] [id number] [address] [place] [address], [place] [address] Apr, [facility] [address] [id number] [address] [place] [address], [place] [address] Mar, [facility] [address] [id number] [address] [place] [address], [place] [address] Mar, [facility] [address] [id number] [address] [place] [address], [place] [address] Feb, [facility] [address] [id number] [address] [place] [address], [place] [address] Feb, [facility] [address] [id number] [address] [place] [address], [place] [address] Feb, [facility] [address] [id number] [address] [place] [address], [place] [address] Feb, [facility] [address] [id number] [address] [place] [address], [place] [address] Feb, [facility] [address] [id number] [address] [place] [address], [place] [address] Feb, [facility] [address] [id number] [address] [place] [address], [place] [address] Dec, [facility] [address] [id number] [address] [place] [address], [place] [address] Dec, [facility] [address] [id number] [address] [place] [address], [place] [address] Nov, [facility] [address] [id number] [address] [place] [address], [place] [address] Nov, [facility] [address] [id number] [address] [place] [address], [place] [address] Nov, [facility] [address] [id number] [facility] [address] 29 Nov, 2013 [facility] [address] [id number] [facility] [address] 17 Nov, 2013 [facility] [address] [id number] [address] [place] [address], [place] [address] 17 Nov, 2013 [facility] [address] [id number] [address] [place] [address], [place] [address] Nov, [facility] [address] [id number] [address] [place] [address], [place] [address] Nov, [facility] [address] [id number] [address] [place] [address], [place] [address] Aug, [facility] [address] [id number] [address] [place] [address], [place] [address] Aug, [facility] [address] [id number] [address] [place] [address], [place] [address] Aug, [facility] [address] [id number] [address] [place] [address], [place] [address] Aug, [facility] [address] [id number] [address] [place] [address], [place] [address] July, [facility] [address] [id number] [address] [place] [address], [place] [address] July, [facility] [address] [id number] [address] [place] [address], [place] [address] Jun, [facility] [address] [id number] [address] [place] [address], [place] [address] Jun, [facility] [address] [id number] [address] [place] [address], [place] [address] Jun, [facility] [address] [id number] [address] [place] [address], [place] [address] 15 Jun, 2013 [facility] [address] [id number] [address] [place] [address], [place] [address] May, [facility] [address] [id number] [address] [place] [address], [place] [address] May, [facility] [address] [id number] [address] [place] [address], [place] [address] Apr, [facility] [address] [id number] [address] [place] [address], [place] [address] Apr, [facility] [address] [id number] [address] [place] [address], [place] [address] Mar, [facility] [address] [id number] [address] [place] [address], [place] [address] Mar, [facility] [address] [id number] [address] [place] [address], [place] [address] Mar, [facility] [address] [id number] [address] [place] [address], [place] [address] Mar, [facility] [address] [id number] [address] [place] [address], [place] [address] Feb, [facility] [address] [id number] [address] [place] [address], [place] [address] Feb, [facility] [address] [id number] [address] [place] [address], [place] [address] Jan, [facility] [address] [id number] [address] [place] [address], [place] [address] Jan, [facility] [address] [id number] [address] [place] [address], [place] [address] Dec, [facility] [address] [id number] [address] [place] [address], [place] [address] Dec, [facility] [address] [id number] [address] [place] [address], [place] [address] Dec, [facility] [address] [id number] [address] [place] [address], [place] [address] Dec, [facility] [address] [id number] [address] [place] [address], [place] [address] Nov, [facility] [address] [id number] [address] [place] [address], [place] [address] Sep, [facility] [address] [id number] [address] [place] [address], [place] [address] Sep, [facility] [address] [id number] [address] [place] [address], [place] [address] Aug, [facility] [address] [id number] [address] [place] [address], [place] [address] July, [facility] [address] [id number] [address] [place] [address], [place] [address] Jun, [facility] [address] [id number] [address] [place] [address], [place] [address] May, [facility] [address] [id number] [address] [place] [address], [place] [address] May, [facility] [address] [id number] [address] [place] [address], [place] [address] May, [facility] [address] [id number] [address] [place] [address], [place] [address] May, [facility] [address] [id number] [address] [place] [address], [place] [address] May, [facility] [address] [id number] [address] [place] [address], [place] [address] Feb, [facility] [address] [id number] [address] [place] [address], [place] [address] Feb, [facility] [address] [id number] [address] [place] [address], [place] [address] Jan, [facility] [address] [id number] [address] [place] [address], [place] [address] Jan, [facility] [address] [id number] [address] [place] [address], [place] [address] Jan, [facility] [address] [id number] [address] [place] [address], [place] [address] Jan, [facility] [address] [id number] [address] [place] [address], [place] [address] Jan, [facility] [address] [id number] [address] [place] [address], [place] [address] Jan, [facility] [address] [id number] [address] [place] [address], [place] [address] Dec, [facility] [address] [id number] [address] [place] [address], [place] [address] Dec, [facility] [address] [id number] [address] [place] [address], [place] [address] Dec, [facility] [address] [id number] [address] [place] [address], [place] [address] 18 Dec, 2011 [facility] [address] [id number] [address] [place] [address], [place] [address] Dec, [facility] [address] [id number] [address] [place] [address], [place] [address] 26 Nov, 2011 [facility] [address] [id number] [address] [place] [address] 18 Nov, 2011 [facility] [address] [id number] [address] [place] [address] 13 Nov, 2011 [facility] [address] [id number] [address] [place] [address] Sep, [facility] [address] [id number] [address] [place] [address], [place] [address] Aug, [facility] [address] [id number] [address] [place] [address] Aug, [facility] [address] [id number] [address] [place] [address] May, [facility] [address] [id number] [address] [place] [address] 29 Apr, 2011 [facility] [address] [id number] [address] [place] [address], [place] [address] Mar, [facility] [address] [id number] [address] [place] [address] Mar, [facility] [address] [id number] [address] [place] [address], [place] [address] Dec, [facility] [address] [id number] [address] [place] [address], [place] [address] Sep, [facility] [address] [id number] [address] [place] [address], [place] [address] 2010 [facility] [address] [id number] [address] [place] [address], [place] [address] 2010 [facility] [address] [id number] [address] [place] [address] 11 Jan, 2010 [facility] [address] [id number] [address] [place] [address], [place] [address] 08 Jan, 2010 [facility] [address] [id number] [address] [place] [address], [place] [address] 10 Nov, 2009 [facility] [address] [id number] [address] [place] [address], [place] [phone] 15 Feb, 2009 [facility] [address] [id number] [address] [place] [address], [place] [phone] 15 Feb, 2009 [facility] [address] [id number] [address] [place] [id number] 16 Jan, 2009 [facility] [address] [id number] [address] [place] [id number] 16 Jan, 2009 [facility] [address] [id number] [address] [place] [id number] 13 Dec, 2008 [facility] [address] [id number] [address] [place] [id number] 13 Dec, 2008 [facility] [address] [facility] [id number] [address] [place] [id number] Nov, [facility] [address] [facility] [id number] [address] [place] [phone] Oct, [facility] [address] [facility] [id number] [address] [place] [phone] Sep, [facility] [address] [facility] [id number] [address] [place] [id number] Aug, IMMUNIZATIONS No Known Immunizations SOCIAL HISTORY Never Assessed REASON FOR VISIT PLAN OF CARE VITAL SIGNS Height 71 in 2014-03-21 Weight 275.9 lbs 2014-03-21 Temperature 97.9 degrees Fahrenheit 2014-03-21 Heart Rate 80 bpm 2014-03-21 Respiratory Rate 18 2014-03-21 Blood pressure systolic 148 mmHg 2014-03-21 Blood pressure diastolic 76 mmHg 2014-03-21 MEDICATIONS Unknown Medications RESULTS No Results PROCEDURES [...] replacement 2018 Hospitalization History surgeries Hospitalization History pneumonia-[facility] 05/2018
--- OUTSIDE RECORDS SUMMARY | 2019-05-19 20:59 | XMS REPORT ---
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 Active 988367725 Problem Diabetes type 2, controlled E11.9 Ac tive 17576047 Problem Other chronic pain G89.29 Active 8 3467683 Problem Other elevated white blood cell (WBC) count D72.82 8 Active 226346679 Problem Type 2 diabetes mellitus with hyperglycemia E11.65 Active 518282157 Problem FDC current use of insulin Z79.4 Active 057179265 Problem Controlled type 2 diabetes m ellitus without complication, without long- term current use of insulin E11.9 Active 840130242 Problem Type 2 diabetes mellitus without complications E11 .9 Active [id number] ALLERGIES No Information ENCOUNTERS Encounter Location Date Diagnosis [place] [address] [address] [facility] [id number] [address] [place] [address] July, [place] [address] [facility] [id number] [address] [place] [address] May, Type 2 diabetes mellitus wit h other circulatory complications E11.59 and Viral bronchitis J20.8 [facility] [address] [facility] [id number] [address] [place] [address] May, Diabetes type 2, controlled E11.9 [facility] [address] [facility] [id number] [address] [place] [address] May, [place] [address] [address] [facility] [id number] [address] [place] [address] 14 May, 2018 Type 2 diabetes mellitus wit h other circulatory complications E11.59 and Viral bronchitis J20.8 [place] [address] [address] [facility] [id number] [address] [place] [address] Apr, [place] [address] [address] [facility] [id number] [address] [place] [address] Feb, Type 2 diabetes mellitus wit h hyperglycemia E11.65 [place] [address] [address] [facility] [id number] [address] [place] [address] Jan, Type 2 diabetes mellitus wit h other circulatory complications E11.59 [place] [address] [address] [facility] [id number] [address] [place] [address] Nov, [place] [address] [address] [facility] [id number] [address] [place] [address] Oct, Other elevated white blood c ell (WBC) count D72.828 and Type 2 diabetes mellitus with other circulatory complications E11.59 [place] [address] [address] [facility] [id number] [address] [place] [address] Sep, [place] [address] [address] [facility] [id number] [address] [place] [address] Sep, Diabetes type 2, controlled E11.9 [place] [address] [address] [facility] [id number] [address] [place] [address] Aug, Type 2 diabetes mellitus wit h hyperglycemia E11.65 [place] [address] [address] [facility] [id number] [address] [place] [address] July, [place] [address] [address] [facility] [id number] [address] [place] [address] Jun, Diabetes type 2, controlled E11.9 ; Other chronic pain G89.29 ; Pain in left knee M25.562 and Pain in right knee M25.561 [place] [address] [address] [facility] [id number] [address] [place] [address] May, [place] [address] [address] [facility] [id number] [address] [place] [address] Feb, Other viral agents as the ca use of diseases classified elsewhere B97.89 and Acute upper respiratory infection, unspecified J06.9 [facility] [address] [id number] [address] [place] [address] Feb, [facility] [address] 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 [id number] [address] [place] [address] Nov, [facility] [address] [id number] [address] [place] [address] Nov, Controlled type 2 diabetes m ellitus without complication, without long-term current use of insulin E11.9 [place] [address] [address] [facility] [id number] [address] [place] [address] Nov, Controlled type 2 diabetes m ellitus without complication, without long-term current use of insulin E11.9 [place] [address] [address] [facility] [id number] [address] [place] [address] Nov, Type 2 diabetes mellitus wit h other circulatory complications E11.59 [facility] [address] [id number] [address] [place] [address] Oct, Type 2 diabetes mellitus wit h hyperglycemia E11.65 [facility] [address] [facility] [id number] [address] [place] [address] Oct, [facility] [address] [facility] [id number] [address] [place] [address] Oct, [facility] [address] [facility] [id number] [address] [place] [address] Oct, Type 2 diabetes mellitus wit hout complications E11.9 [facility] [address] [facility] [id number] [address] [place] [address] Sep, Type 2 diabetes mellitus wit h hyperglycemia E11.65 [facility] [address] [facility] [id number] [address] [place] [address] Sep, Type 2 diabetes mellitus wit h other circulatory complications E11.59 [facility] [address] [facility] [id number] [address] [place] [address] Aug, [place] [address] [address] [facility] [id number] [address] [place] [address] July, Controlled type 2 diabetes m ellitus without complication, without long-term current use of insulin E11.9 [facility] [address] [facility] [id number] [address] [place] [address] May, [facility] [address] [facility] [id number] [address] [place] [address] Feb, Controlled type 2 diabetes m ellitus without complication, without long-term current use of insulin E11.9 [facility] [address] [facility] [id number] [address] [place] [address] Jan, Controlled type 2 diabetes m ellitus without complication, without long-term current use of insulin E11.9 [facility] [address] [facility] [id number] [address] [place] [address] Jan, Type 2 diabetes mellitus wit h hyperglycemia E11.65 and FDC current use of insulin Z79.4 [facility] [address] [facility] [id number] [address] [place] [address] Nov, Diabetes type 2, controlled E11.9 [facility] [address] [facility] [id number] [address] [place] [address] Aug, Type 2 diabetes mellitus wit h other circulatory complications E11.59 and Hypertension, essential I10 [facility] [address] [id number] [address] [place] [address] July, Type 2 diabetes mellitus wit h hyperglycemia E11.65 and Hypertension, benign I10 [facility] [address] [id number] [address] [place] [address] May, Type 2 diabetes mellitus wit h other circulatory complications E11.59 [facility] [address] [id number] [address] [place] [address] 03 Apr, 2015 Diabetes type 2, controlled E11.9 [facility] [address] [id number] [address] [place] [address] Jan, Type 2 diabetes mellitus wit h other circulatory complications E11.59 [facility] [address] [id number] [address] [place] [address] Dec, Type 2 diabetes mellitus wit h other circulatory complications E11.59 [facility] [address] [id number] [address] [place] [address] Aug, Diabetes 250.00 [facility] [address] [id number] [address] [place] [address] July, Diabetes 250.00 [facility] [address] [id number] [address] [place] [address] 30 Jun, 2014 [facility] [address] [id number] [address] [place] [address] Jun, [facility] [address] [id number] [address] [place] [address] 28 Jun, 2014 [facility] [address] [id number] [address] [place] [address] 14 Jun, 2014 [facility] [address] [id number] [address] [place] [address] Jun, [facility] [address] [id number] [address] [place] [address] May, [facility] [address] [id number] [address] [place] [address] May, [facility] [address] [id number] [address] [place] [address], [place] [address] Apr, [facility] [address] [id number] [address] [place] [address], [place] [address] Apr, [facility] [address] [id number] [address] [place] [address], [place] [address] Mar, [facility] [address] [id number] [address] [place] [address], [place] [address] Mar, [facility] [address] [id number] [address] [place] [address], [place] [address] Feb, [facility] [address] [id number] [address] [place] [address], [place] [address] Feb, [facility] [address] [id number] [address] [place] [address], [place] [address] Feb, [facility] [address] [id number] [address] [place] [address], [place] [address] Feb, [facility] [address] [id number] [address] [place] [address], [place] [address] Feb, [facility] [address] [id number] [address] [place] [address], [place] [address] Feb, [facility] [address] [id number] [address] [place] [address], [place] [address] Dec, [facility] [address] [id number] [address] [place] [address], [place] [address] Dec, [facility] [address] [id number] [address] [place] [address], [place] [address] Nov, [facility] [address] [id number] [address] [place] [address], [place] [address] Nov, [facility] [address] [id number] [address] [place] [address], [place] [address] Nov, [facility] [address] [id number] [facility] [place] [address] 29 Nov, 2013 [facility] [address] [id number] [facility] [place] [address] 17 Nov, 2013 [facility] [address] [id number] [address] [place] [address], [place] [address] 17 Nov, 2013 [facility] [address] [id number] [address] [place] [address], [place] [address] Nov, [facility] [address] [id number] [address] [place] [address], [place] [address] Nov, [facility] [address] [id number] [address] [place] [address], [place] [address] Aug, [facility] [address] [id number] [address] [place] [address], [place] [address] Aug, [facility] [address] [id number] [address] [place] [address], [place] [address] Aug, [facility] [address] [id number] [address] [place] [address], [place] [address] Aug, [facility] [address] [id number] [address] [place] [address], [place] [address] July, [facility] [address] [id number] [address] [place] [address], [place] [address] July, [facility] [address] [id number] [address] [place] [address], [place] [address] Jun, [facility] [address] [id number] [address] [place] [address], [place] [address] Jun, [facility] [address] [id number] [address] [place] [address], [place] [address] Jun, [facility] [address] [id number] [address] [place] [address], [place] [address] 15 Jun, 2013 [facility] [address] [id number] [address] [place] [address], [place] [address] May, [facility] [address] [id number] [address] [place] [address], [place] [address] May, [facility] [address] [id number] [address] [place] [address], [place] [address] Apr, [facility] [address] [id number] [address] [place] [address], [place] [address] Apr, [facility] [address] [id number] [address] [place] [address], [place] [address] Mar, [facility] [address] [id number] [address] [place] [address], [place] [address] Mar, [facility] [address] [id number] [address] [place] [address], [place] [address] Mar, [facility] [address] [id number] [address] [place] [address], [place] [address] Mar, [facility] [address] [id number] [address] [place] [address], [place] [address] Feb, [facility] [address] [id number] [address] [place] [address], [place] [address] Feb, [facility] [address] [id number] [address] [place] [address], [place] [address] Jan, [facility] [address] [id number] [address] [place] [address], [place] [address] Jan, [facility] [address] [id number] [address] [place] [address], [place] [address] Dec, [facility] [address] [id number] [address] [place] [address], [place] [address] Dec, [facility] [address] [id number] [address] [place] [address], [place] [address] Dec, [facility] [address] [id number] [address] [place] [address], [place] [address] Dec, [facility] [address] [id number] [address] [place] [address], [place] [address] Nov, [facility] [address] [id number] [address] [place] [address], [place] [address] Sep, [facility] [address] [id number] [address] [place] [address], [place] [address] Sep, [facility] [address] [id number] [address] [place] [address], [place] [address] Aug, [facility] [address] [id number] [address] [place] [address], [place] [address] July, [facility] [address] [id number] [address] [place] [address], [place] [address] Jun, [facility] [address] [id number] [address] [place] [address], [place] [address] May, [facility] [address] [id number] [address] [place] [address], [place] [address] May, [facility] [address] [id number] [address] [place] [address], [place] [address] May, [facility] [address] [id number] [address] [place] [address], [place] [address] May, [facility] [address] [id number] [address] [place] [address], [place] [address] May, [facility] [address] [id number] [address] [place] [address], [place] [address] Feb, [facility] [address] [id number] [address] [place] [address], [place] [address] Feb, [facility] [address] [id number] [address] [place] [address], [place] [address] Jan, [facility] [address] [id number] [address] [place] [address], [place] [address] Jan, [facility] [address] [id number] [address] [place] [address], [place] [address] Jan, [facility] [address] [id number] [address] [place] [address], [place] [address] Jan, [facility] [address] [id number] [address] [place] [address], [place] [address] Jan, [facility] [address] [id number] [address] [place] [address], [place] [address] Jan, [facility] [address] [id number] [address] [place] [address], [place] [address] Dec, [facility] [address] [id number] [address] [place] [address], [place] [address] Dec, [facility] [address] [id number] [address] [place] [address], [place] [address] Dec, [facility] [address] [id number] [address] [place] [address], [place] [address] 18 Dec, 2011 [facility] [address] [id number] [address] [place] [address], [place] [address] Dec, [facility] [address] [id number] [address] [place] [address], [place] [address] 26 Nov, 2011 [facility] [address] [id number] [address] [place] [address] 18 Nov, 2011 [facility] [address] [id number] [address] [place] [address] 13 Nov, 2011 [facility] [address] [id number] [address] [place] [address] Sep, [facility] [address] [id number] [address] [place] [address], [place] [address] Aug, [facility] [address] [id number] [address] [place] [address] Aug, [facility] [address] [id number] [address] [place] [address] May, [facility] [address] [id number] [address] [place] [address] 29 Apr, 2011 [facility] [address] [id number] [address] [place] [address], [place] [address] Mar, [facility] [address] [id number] [address] [place] [address] Mar, [facility] [address] [id number] [address] [place] [address], [place] [address] Dec, [facility] [address] [id number] [address] [place] [address], [place] [address] Sep, [facility] [address] [id number] [address] [place] [address], [place] [address] 2010 [facility] [address] [id number] [address] [place] [address], [place] [address] 2010 [facility] [address] [id number] [address] [place] [address] 11 Jan, 2010 [facility] [address] [id number] [address] [place] [address], [place] [address] 08 Jan, 2010 [facility] [address] [id number] [address] [place] [address], [place] [address] 10 Nov, 2009 [facility] [address] [id number] [address] [place] [address], [place] [phone] 15 Feb, 2009 [facility] [address] [id number] [address] [place] [address], [place] [address] 15 Feb, 2009 [facility] [address] [id number] [address] [place] [phone] 16 Jan, 2009 [facility] [address] [id number] [address] [place] [phone] 16 Jan, 2009 [facility] [address] [id number] [address] [place] [phone] 13 Dec, 2008 [facility] [address] [id number] [address] [place] [phone] 13 Dec, 2008 [facility] [address] [facility] [id number] [address] [place] [phone] Nov, [facility] [address] [facility] [id number] [address] [place] [phone] Oct, [facility] [address] [facility] [id number] [address] [place] [phone] Sep, [facility] [address] [facility] [id number] [address] [place] [phone] Aug, IMMUNIZATIONS No Known Immunizations SOCIAL HISTORY [...] replacement 2018 Hospitalization History surgeries Hospitalization History pneumonia-[facility] 05/2018
[2019-05-19] MEDS ORDERED: NON-FORMULARY MEDICATION 1 EA EA (Acyclovir 800 MG) PO SCH (21:00)
[2019-05-19] MEDS ORDERED: INSULIN DETEMIR 48 UNIT SQ SCH (21:00)
--- OUTSIDE RECORDS SUMMARY | 2019-05-19 21:00 | XMS REPORT ---
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 Active 775706479 Problem Diabetes type 2, controlled E11.9 Ac tive 53802308 Problem Other chronic pain G89.29 Active 8 3320215 Problem Other elevated white blood cell (WBC) count D72.82 8 Active 256115473 Problem Type 2 diabetes mellitus with hyperglycemia E11.65 Active 762432700 Problem FDC current use of insulin Z79.4 Active 971106485 Problem Controlled type 2 diabetes m ellitus without complication, without long- term current use of insulin E11.9 Active 242136870 Problem Type 2 diabetes mellitus without complications E11 .9 Active 233941501 ALLERGIES No Information ENCOUNTERS Encounter Location Date Diagnosis [place] [address] [place] [id number] [address] [place] [address] May, Type 2 diabetes mellitus wit h other circulatory complications E11.59 and Viral bronchitis J20.8 [place] [id number] [place] [id number] [address] [place] [address] 27 May, 2018 Diabetes type 2, controlled E11.9 [place] [id number] [facility] [id number] [address] [place] [address] May, [place] [address] [address] [facility] [id number] [address] [place] [address] May, Type 2 diabetes mellitus wit h other circulatory complications E11.59 and Viral bronchitis J20.8 [place] [address] [address] [place] [id number] [address] [place] [id number] 05 Apr, 2018 [place] [address] [place] [id number] [address] [place] [address] Feb, Type 2 diabetes mellitus wit h hyperglycemia E11.65 [facility] [address] [id number] [address] [place] [address] Jan, Type 2 diabetes mellitus wit h other circulatory complications E11.59 [facility] [address] [id number] [address] [place] [address] Nov, [facility] [address] [facility] [id number] [address] [place] [address] Oct, Other elevated white blood c ell (WBC) count D72.828 and Type 2 diabetes mellitus with other circulatory complications E11.59 [facility] [address] [id number] [address] [place] [address] Sep, [facility] [address] [facility] [id number] [address] [place] [address] Sep, Diabetes type 2, controlled E11.9 [place] [address] [address] [facility] [id number] [address] [place] [address] Aug, Type 2 diabetes mellitus wit h hyperglycemia E11.65 [facility] [address] [id number] [address] [place] [address] July, [facility] [address] [facility] [id number] [address] [place] [address] Jun, Diabetes type 2, controlled E11.9 ; Other chronic pain G89.29 ; Pain in left knee M25.562 and Pain in right knee M25.561 [facility] [address] [id number] [address] [place] [address] May, [facility] [address] [facility] [id number] [address] [place] [address] Feb, Other viral agents as the ca use of diseases classified elsewhere B97.89 and Acute upper respiratory infection, unspecified J06.9 [facility] [address] [facility] [id number] [address] [place] [address] Feb, [facility] [address] [id number] [address] [place] [address] Feb, Type 2 diabetes mellitus wit hout complications E11.9 and FDC current use of insulin Z79.4 [facility] [address] [id number] [address] [place] [address] Dec, [facility] [address] [id number] [address] [place] [address] Dec, [facility] [address] [id number] [address] [place] [address] Nov, Type 2 diabetes mellitus wit hout complications E11.9 and FDC current use of insulin Z79.4 [facility] [address] [id number] [address] [place] [address] Nov, [facility] [address] [facility] [id number] [address] [place] [address] Nov, Controlled type 2 diabetes m ellitus without complication, without long-term current use of insulin E11.9 [facility] [address] [id number] [address] [place] [address] Nov, Controlled type 2 diabetes m ellitus without complication, without long-term current use of insulin E11.9 [facility] [address] [id number] [address] [place] [address] Nov, Type 2 diabetes mellitus wit h other circulatory complications E11.59 [facility] [address] [id number] [address] [place] [address] Oct, Type 2 diabetes mellitus wit h hyperglycemia E11.65 [facility] [address] [id number] [address] [place] [address] Oct, [facility] [address] [id number] [address] [place] [address] Oct, [facility] [address] [id number] [address] [place] [address] Oct, Type 2 diabetes mellitus wit hout complications E11.9 [facility] [address] [facility] [id number] [address] [place] [address] Sep, Type 2 diabetes mellitus wit h hyperglycemia E11.65 [place] [address] [address] [facility] [id number] [address] [place] [address] Sep, Type 2 diabetes mellitus wit h other circulatory complications E11.59 [place] [address] [address] [facility] [id number] [address] [place] [address] Aug, [place] [address] [facility] [id number] [address] [place] [address] July, Controlled type 2 diabetes m ellitus without complication, without long-term current use of insulin E11.9 [place] [address] [address] [facility] [id number] [address] [place] [address] May, [place] [address] [place] [id number] [address] [place] [address] Feb, Controlled type 2 diabetes m ellitus without complication, without long-term current use of insulin E11.9 [place] [address] [address] [facility] [id number] [address] [place] [address] Jan, Controlled type 2 diabetes m ellitus without complication, without long-term current use of insulin E11.9 [place] [address] [address] [facility] [id number] [address] [place] [address] Jan, Type 2 diabetes mellitus wit h hyperglycemia E11.65 and long term current use of insulin Z79.4 [place] [address] [facility] [id number] [address] [place] [address] Nov, Diabetes type 2, controlled E11.9 [place] [address] [facility] [id number] [address] [place] [address] Aug, Type 2 diabetes mellitus wit h other circulatory complications E11.59 and Hypertension, essential I10 [place] [address] [address] [facility] [id number] [address] [place] [address] July, Type 2 diabetes mellitus wit h hyperglycemia E11.65 and Hypertension, benign I10 [place] [address] [id number] [address] [place] [address] May, Type 2 diabetes mellitus wit h other circulatory complications E11.59 [facility] [address] [id number] [address] [place] [address] Apr, Diabetes type 2, controlled E11.9 [facility] [address] [facility] [id number] [address] [place] [address] Jan, Type 2 diabetes mellitus wit h other circulatory complications E11.59 [facility] [address] [id number] [address] [place] [address] Dec, Type 2 diabetes mellitus wit h other circulatory complications E11.59 [facility] [address] [id number] [address] [place] [address] Aug, Diabetes 250.00 [facility] [address] [facility] [id number] [address] [place] [id number] July, Diabetes 250.00 [facility] [address] [id number] [address] [place] [address] Jun, [facility] [address] [id number] [address] [place] [address] Jun, [facility] [address] [id number] [address] [place] [address] Jun, [facility] [address] [id number] [address] [place] [address] Jun, [facility] [address] [id number] [address] [place] [address] Jun, [facility] [address] [id number] [address] [place] [address] May, [facility] [address] [id number] [address] [place] [address] May, [facility] [address] [id number] [address] [place] [id number] Apr, [facility] [address] [id number] [address] [place] [address], [place] [address] Apr, [facility] [address] [id number] [address] [place] [address], [place] [address] Mar, [facility] [address] [id number] [address] [place] [address], [place] [address] Mar, [facility] [address] [id number] [address] [place] [address], [place] [address] Feb, [facility] [address] [id number] [address] [place] [address], [place] [address] Feb, [facility] [address] [id number] [address] [place] [address], [place] [address] Feb, [facility] [address] [id number] [address] [place] [address], [place] [address] Feb, [facility] [address] [id number] [address] [place] [address], [place] [address] Feb, [facility] [address] [id number] [address] [place] [address], [place] [address] Feb, [facility] [address] [id number] [address] [place] [address], [place] [address] Dec, [facility] [address] [id number] [address] [place] [address], [place] [address] Dec, [facility] [address] [id number] [address] [place] [address], [place] [address] 29 Nov, 2013 [facility] [address] [id number] [address] [place] [address], [place] [address] 29 Nov, 2013 [facility] [address] [id number] [address] [place] [address], [place] [address] 29 Nov, 2013 [facility] [address] [id number] [address] [place] [address], [place] [address] 29 Nov, 2013 [facility] [address] [id number] [address] [place] [address], [place] [address] 17 Nov, 2013 [facility] [address] [id number] [facility] [place] [address] 17 Nov, 2013 [facility] [address] [id number] [address] [place] [address], [place] [address] 12 Nov, 2013 [facility] [address] [id number] [address] [place] [address], [place] [address] Nov, [facility] [address] [id number] [address] [place] [address], [place] [address] Aug, [facility] [address] [id number] [address] [place] [address], [place] [address] Aug, [facility] [address] [id number] [address] [place] [address], [place] [address] Aug, [facility] [address] [id number] [address] [place] [address], [place] [address] Aug, [facility] [address] [id number] [address] [place] [address], [place] [address] July, [facility] [address] [id number] [address] [place] [address], [place] [address] July, [facility] [address] [id number] [address] [place] [address], [place] [address] 15 Jun, 2013 [facility] [address] [id number] [address] [place] [address], [place] [address] 15 Jun, 2013 [facility] [address] [id number] [address] [place] [address], [place] [address] 15 Jun, 2013 [facility] [address] [id number] [address] [place] [address], [place] [address] 15 Jun, 2013 [facility] [address] [id number] [address] [place] [address], [place] [address] May, [facility] [address] [id number] [address] [place] [address], [place] [address] May, [facility] [address] [id number] [address] [place] [address], [place] [address] Apr, [facility] [address] [id number] [address] [place] [address], [place] [address] Apr, [facility] [address] [id number] [address] [place] [address], [place] [address] Mar, [facility] [address] [id number] [address] [place] [address], [place] [address] Mar, [facility] [address] [id number] [address] [place] [address], [place] [address] Mar, [facility] [address] [id number] [address] [place] [address], [place] [address] Mar, [facility] [address] [id number] [address] [place] [address], [place] [address] Feb, [facility] [address] [id number] [address] [place] [address], [place] [address] Feb, [facility] [address] [id number] [address] [place] [address], [place] [address] Jan, [facility] [address] [id number] [address] [place] [address], [place] [address] Jan, [facility] [address] [id number] [address] [place] [address], [place] [address] Dec, [facility] [address] [id number] [address] [place] [address], [place] [address] Dec, [facility] [address] [id number] [address] [place] [address], [place] [address] Dec, [facility] [address] [id number] [address] [place] [address], [place] [address] Dec, [facility] [address] [id number] [address] [place] [address], [place] [address] Nov, [facility] [address] [id number] [address] [place] [address], [place] [address] Sep, [facility] [address] [id number] [address] [place] [address], [place] [address] Sep, [facility] [address] [id number] [address] [place] [address], [place] [address] Aug, [facility] [address] [id number] [address] [place] [address], [place] [address] July, [facility] [address] [id number] [address] [place] [address], [place] [address] Jun, [facility] [address] [id number] [address] [place] [address], [place] [address] May, [facility] [address] [id number] [address] [place] [address], [place] [address] May, [facility] [address] [id number] [address] [place] [address], [place] [address] May, [facility] [address] [id number] [address] [place] [address], [place] [address] May, [facility] [address] [id number] [address] [place] [address], [place] [address] May, [facility] [address] [id number] [address] [place] [address], [place] [address] Feb, [facility] [address] [id number] [address] [place] [address], [place] [address] Feb, [facility] [address] [id number] [address] [place] [address], [place] [address] Jan, [facility] [address] [id number] [address] [place] [address], [place] [address] Jan, [facility] [address] [id number] [address] [place] [address], [place] [address] Jan, [facility] [address] [id number] [address] [place] [address], [place] [address] Jan, [facility] [address] [id number] [address] [place] [address] 07 Jan, 2012 [facility] [address] [id number] [address] [place] [address], [place] [address] Jan, [facility] [address] [id number] [address] [place] [address] 18 Dec, 2011 [facility] [address] [id number] [address] [place] [address], [place] [address] 18 Dec, 2011 [facility] [address] [id number] [address] [place] [address] Dec, [facility] [address] [id number] [address] [place] [address], [place] [address] Dec, [facility] [address] [id number] [address] [place] [address], [place] [address] Dec, [facility] [address] [id number] [address] [place] [address], [place] [address] Nov, [facility] [address] [id number] [address] [place] [address], [place] [address] 18 Nov, 2011 [facility] [address] [id number] [address] [place] [address] 13 Nov, 2011 [facility] [address] [id number] [address] [place] [address] Sep, [facility] [address] [id number] [address] [place] [address] Aug, [facility] [address] [id number] [address] [place] [address] Aug, [facility] [address] [id number] [address] [place] [address] May, [facility] [address] [id number] [address] [place] [address] Apr, [facility] [address] [id number] [address] [place] [address], [place] [address] Mar, [facility] [address] [id number] [address] [place] [address], [place] [address] 23 Mar, 2011 [facility] [address] [id number] [address] [place] [address], [place] [address] 28 Dec, 2010 [facility] [address] [id number] [address] [place] [address], [place] [address] 11 Sep, 2010 [facility] [address] [id number] [address] [place] [address], [place] [address] 2010 [facility] [address] [id number] [address] [place] [address], [place] [address] 2010 [facility] [address] [id number] [address] [place] [address], [place] [address] 11 Jan, 2010 [facility] [address] [id number] [address] [place] [address], [place] [id number] 08 Jan, 2010 [facility] [address] [id number] [address] [place] [address], [place] [id number] 10 Nov, 2009 [facility] [address] [id number] [address] [place] [address], [place] [id number] 15 Feb, 2009 [facility] [address] [id number] [address] [place] [address], [place] [id number] 15 Feb, 2009 [facility] [address] [id number] [address] [place] [address], [place] [id number] 16 Jan, 2009 [facility] [address] [id number] [address] [place] [address], [place] [id number] 16 Jan, 2009 [facility] [address] [id number] [address] [place] [address], [place] [id number] 13 Dec, 2008 [facility] [address] [id number] [address] [place] [address], [place] [id number] 13 Dec, 2008 [facility] [address] [id number] [address] [place] [address], [place] [id number] 15 Nov, 2008 [facility] [address] [id number] [address] [place] [address], [place] [id number] Oct, [facility] [address] [facility] [id number] [address] [place] [id number] Sep, [facility] [address] [facility] [id number] [address] [place] [id number] Aug, IMMUNIZATIONS No Known Immunizations SOCIAL HISTORY Never Assessed REASON FOR VISIT [place] [place] CARE VITAL SIGNS MEDICATIONS Medication Instructions Dosage Frequency Start Date End Date Duration S tatus Levemir Flexpen 100 unit/mL (3 mL) 69 Un its by Subcutaneous route 1 time per day at bedtime Mar, Active Victoza 0.6 mg/0.1 mL (18 mg/3 mL) injec t 3 mL by Subcutaneous route 1 time per day1.8 mg qd Jan, Active metformin 1,000 mg take 1 tablet by Ora l route with morning and evening meals 2 times per day Mar, Active RESULTS No Results PROCEDURES No Known [...] replacement 2018 Hospitalization History surgeries Hospitalization History pneumonia-[facility] 05/2018
--- OUTSIDE RECORDS SUMMARY | 2019-05-19 21:00 | XMS REPORT ---
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 Active 518179492 Problem Diabetes type 2, controlled E11.9 Ac tive 60671247 Problem Other chronic pain G89.29 Active 8 0191410 Problem Other elevated white blood cell (WBC) count D72.82 8 Active 662337683 Problem Type 2 diabetes mellitus with hyperglycemia E11.65 Active 060527674 Problem [facility] current use of insulin Z79.4 Active 440070608 Problem Controlled type 2 diabetes m ellitus without complication, without long- term current use of insulin E11.9 Active 549596291 Problem Type 2 diabetes mellitus without complications E11 .9 Active 126772529 ALLERGIES No Information ENCOUNTERS Encounter Location Date Diagnosis [place] [address] [place] [id number] [address] [place] [address] May, Type 2 diabetes mellitus wit h other circulatory complications E11.59 and Viral bronchitis J20.8 [place] [id number] [place] [id number] [address] [place] [id number] 27 May, 2018 Diabetes type 2, controlled E11.9 [place] [id number] [facility]] [id number] [address] [place] [address] May, [place] [address] [facility]] [id number] [address] [place] [address] May, Type 2 diabetes mellitus wit h other circulatory complications E11.59 and Viral bronchitis J20.8 [place] [address] [place] [id number] [address] [place] [address] 05 Apr, 2018 [place] [address] [place] [id number] [address] [place] [address] Feb, Type 2 diabetes mellitus wit h hyperglycemia E11.65 [facility] [address] [id number] [address] [place] [address] Jan, Type 2 diabetes mellitus wit h other circulatory complications E11.59 [facility] [address] [id number] [address] [place] [address] Nov, [facility] [address] [facility]] [id number] [address] [place] [address] Oct, Other elevated white blood c ell (WBC) count D72.828 and Type 2 diabetes mellitus with other circulatory complications E11.59 [facility] [address] [id number] [address] [place] [address] Sep, [facility] [address] [facility]] [id number] [address] [place] [address] Sep, Diabetes type 2, controlled E11.9 [place] [address] [facility]] [id number] [address] [place] [address] Aug, Type 2 diabetes mellitus wit h hyperglycemia E11.65 [facility] [address] [id number] [address] [place] [address] July, [facility] [address] [facility]] [id number] [address] [place] [address] Jun, Diabetes type 2, controlled E11.9 ; Other chronic pain G89.29 ; Pain in left knee M25.562 and Pain in right knee M25.561 [facility] [address] [id number] [address] [place] [address] May, [facility] [address] [facility]] [id number] [address] [place] [address] Feb, Other viral agents as the ca use of diseases classified elsewhere B97.89 and Acute upper respiratory infection, unspecified J06.9 [facility] [address] [facility]] [id number] [address] [place] [address] Feb, [facility] [address] [id number] [address] [place] [address] Feb, Type 2 diabetes mellitus wit hout complications E11.9 and [facility] current use of insulin Z79.4 [facility] [address] [id number] [address] [place] [address] Dec, [facility] [address] [id number] [address] [place] [address] Dec, [facility] [address] [id number] [address] [place] [address] Nov, Type 2 diabetes mellitus wit hout complications E11.9 and [facility] current use of insulin Z79.4 [facility] [address] [id number] [address] [place] [address] Nov, [facility] [address] [facility]] [id number] [address] [place] [address] Nov, Controlled type 2 diabetes m ellitus without complication, without long-term current use of insulin E11.9 [facility] [address] [id number] [address] [place] [address] Nov, Controlled type 2 diabetes m ellitus without complication, without long-term current use of insulin E11.9 [facility] [address] [id number] [address] [place] [address] Nov, Type 2 diabetes mellitus wit h other circulatory complications E11.59 [facility] [address] [id number] [address] [place] [address] Oct, Type 2 diabetes mellitus wit h hyperglycemia E11.65 [facility] [address] [id number] [address] [place] [address] Oct, [facility] [address] [id number] [address] [place] [address] Oct, [facility] [address] [id number] [address] [place] [address] Oct, Type 2 diabetes mellitus wit hout complications E11.9 [facility] [address] [facility]] [id number] [address] [place] [address] Sep, Type 2 diabetes mellitus wit h hyperglycemia E11.65 [place] [address] [facility]] [id number] [address] [place] [address] Sep, Type 2 diabetes mellitus wit h other circulatory complications E11.59 [place] [address] [facility]] [id number] [address] [place] [address] Aug, [place] [address] [facility]] [id number] [address] [place] [address] July, Controlled type 2 diabetes m ellitus without complication, without long-term current use of insulin E11.9 [place] [address] [facility]] [id number] [address] [place] [address] May, [place] [address] [place] [id number] [address] [place] [address] Feb, Controlled type 2 diabetes m ellitus without complication, without long-term current use of insulin E11.9 [place] [address] [facility]] [id number] [address] [place] [address] Jan, Controlled type 2 diabetes m ellitus without complication, without long-term current use of insulin E11.9 [place] [address] [facility]] [id number] [address] [place] [address] Jan, Type 2 diabetes mellitus wit h hyperglycemia E11.65 and roasterman current use of insulin Z79.4 [place] [address] [facility] 3] [id number] [address] [place] [address] Nov, Diabetes type 2, controlled E11.9 [place] [address] [facility]] [id number] [address] [place] [address] Aug, Type 2 diabetes mellitus wit h other circulatory complications E11.59 and Hypertension, essential I10 [place] [address] [facility]] [id number] [address] [place] [address] July, Type 2 diabetes mellitus wit h hyperglycemia E11.65 and Hypertension, benign I10 [place] [address] [id number] [address] [place] [address] May, Type 2 diabetes mellitus wit h other circulatory complications E11.59 [facility] [address] [id number] [address] [place] [address] Apr, Diabetes type 2, controlled E11.9 [facility] [address] [facility]] [id number] [address] [place] [address] Jan, Type 2 diabetes mellitus wit h other circulatory complications E11.59 [facility] [address] [id number] [address] [place] [address] Dec, Type 2 diabetes mellitus wit h other circulatory complications E11.59 [facility] [address] [id number] [address] [place] [address] Aug, Diabetes 250.00 [facility] [address] [facility]] [id number] [address] [place] [address] July, Diabetes 250.00 [facility] [address] [id number] [address] [place] [address] Jun, [facility] [address] [id number] [address] [place] [address] Jun, [facility] [address] [id number] [address] [place] [address] Jun, [facility] [address] [id number] [address] [place] [address] Jun, [facility] [address] [id number] [address] [place] [address] Jun, [facility] [address] [id number] [address] [place] [address] May, [facility] [address] [id number] [address] [place] [address] May, [facility] [address] [id number] [address] [place] [address] Apr, [facility] [address] [id number] [address] [place] [address], [place] [address] Apr, [facility] [address] [id number] [address] [place] [address], [place] [address] Mar, [facility] [address] [id number] [address] [place] [address], [place] [address] Mar, [facility] [address] [id number] [address] [place] [address], [place] [address] Feb, [facility] [address] [id number] [address] [place] [address], [place] [address] Feb, [facility] [address] [id number] [address] [place] [address], [place] [address] Feb, [facility] [address] [id number] [address] [place] [address], [place] [address] Feb, [facility] [address] [id number] [address] [place] [address], [place] [address] Feb, [facility] [address] [id number] [address] [place] [address], [place] [address] Feb, [facility] [address] [id number] [address] [place] [address], [place] [address] Dec, [facility] [address] [id number] [address] [place] [address], [place] [address] Dec, [facility] [address] [id number] [address] [place] [address], [place] [address] 29 Nov, 2013 [facility] [address] [id number] [address] [place] [address], [place] [address] 29 Nov, 2013 [facility] [address] [id number] [address] [place] [address], [place] [address] 29 Nov, 2013 [facility] [address] [id number] [address] [place] [address], [place] [address] 29 Nov, 2013 [facility] [address] [id number] [address] [place] [address], [place] [address] 17 Nov, 2013 [facility] [address] [id number] [facility] [address] 17 Nov, 2013 [facility] [address] [id number] [address] [place] [address], [place] [address] 12 Nov, 2013 [facility] [address] [id number] [address] [place] [address], [place] [address] Nov, [facility] [address] [id number] [address] [place] [address], [place] [address] Aug, [facility] [address] [id number] [address] [place] [address], [place] [address] Aug, [facility] [address] [id number] [address] [place] [address], [place] [address] Aug, [facility] [address] [id number] [address] [place] [address], [place] [address] Aug, [facility] [address] [id number] [address] [place] [address], [place] [address] July, [facility] [address] [id number] [address] [place] [address], [place] [address] July, [facility] [address] [id number] [address] [place] [address], [place] [address] 15 Jun, 2013 [facility] [address] [id number] [address] [place] [address], [place] [address] 15 Jun, 2013 [facility] [address] [id number] [address] [place] [address], [place] [address] 15 Jun, 2013 [facility] [address] [id number] [address] [place] [address], [place] [address] 15 Jun, 2013 [facility] [address] [id number] [address] [place] [address], [place] [address] May, [facility] [address] [id number] [address] [place] [address], [place] [address] May, [facility] [address] [id number] [address] [place] [address], [place] [address] Apr, [facility] [address] [id number] [address] [place] [address], [place] [address] Apr, [facility] [address] [id number] [address] [place] [address], [place] [address] Mar, [facility] [address] [id number] [address] [place] [address], [place] [address] Mar, [facility] [address] [id number] [address] [place] [address], [place] [address] Mar, [facility] [address] [id number] [address] [place] [address], [place] [address] Mar, [facility] [address] [id number] [address] [place] [address], [place] [address] Feb, [facility] [address] [id number] [address] [place] [address], [place] [address] Feb, [facility] [address] [id number] [address] [place] [address], [place] [address] Jan, [facility] [address] [id number] [address] [place] [address], [place] [address] Jan, [facility] [address] [id number] [address] [place] [address], [place] [address] Dec, [facility] [address] [id number] [address] [place] [address], [place] [address] Dec, [facility] [address] [id number] [address] [place] [address], [place] [address] Dec, [facility] [address] [id number] [address] [place] [address], [place] [address] Dec, [facility] [address] [id number] [address] [place] [address], [place] [address] Nov, [facility] [address] [id number] [address] [place] [address], [place] [address] Sep, [facility] [address] [id number] [address] [place] [address], [place] [address] Sep, [facility] [address] [id number] [address] [place] [address], [place] [address] Aug, [facility] [address] [id number] [address] [place] [address], [place] [address] July, [facility] [address] [id number] [address] [place] [address], [place] [address] Jun, [facility] [address] [id number] [address] [place] [address], [place] [address] May, [facility] [address] [id number] [address] [place] [address], [place] [address] May, [facility] [address] [id number] [address] [place] [address], [place] [address] May, [facility] [address] [id number] [address] [place] [address], [place] [address] May, [facility] [address] [id number] [address] [place] [address], [place] [address] May, [facility] [address] [id number] [address] [place] [address], [place] [address] Feb, [facility] [address] [id number] [address] [place] [address], [place] [address] Feb, [facility] [address] [id number] [address] [place] [address], [place] [address] Jan, [facility] [address] [id number] [address] [place] [address], [place] [address] Jan, [facility] [address] [id number] [address] [place] [address], [place] [address] Jan, [facility] [address] [id number] [address] [place] [address], [place] [address] Jan, [facility] [address] [id number] [address] [place] [address] 07 Jan, 2012 [facility] [address] [id number] [address] [place] [address], [place] [address] Jan, [facility] [address] [id number] [address] [place] [address] 18 Dec, 2011 [facility] [address] [id number] [address] [place] [address], [place] [address] 18 Dec, 2011 [facility] [address] [id number] [address] [place] [address] Dec, [facility] [address] [id number] [address] [place] [address], [place] [address] Dec, [facility] [address] [id number] [address] [place] [address], [place] [address] Dec, [facility] [address] [id number] [address] [place] [address], [place] [address] Nov, [facility] [address] [id number] [address] [place] [address], [place] [address] 18 Nov, 2011 [facility] [address] [id number] [address] [place] [address] 13 Nov, 2011 [facility] [address] [id number] [address] [place] [address] Sep, [facility] [address] [id number] [address] [place] [address] Aug, [facility] [address] [id number] [address] [place] [address] Aug, [facility] [address] [id number] [address] [place] [address] May, [facility] [address] [id number] [address] [place] [address] Apr, [facility] [address] [id number] [address] [place] [address], [place] [address] Mar, [facility] [address] [id number] [address] [place] [address], [place] [address] 23 Mar, 2011 [facility] [address] [id number] [address] [place] [address], [place] [address] 28 Dec, 2010 [facility] [address] [id number] [address] [place] [address], [place] [address] 11 Sep, 2010 [facility] [address] [id number] [address] [place] [address], [place] [address] 2010 [facility] [address] [id number] [address] [place] [address], [place] [address] 2010 [facility] [address] [id number] [address] [place] [address], [place] [address] 11 Jan, 2010 [facility] [address] [id number] [address] [place] [address], [place] [address] 08 Jan, 2010 [facility] [address] [id number] [address] [place] [address], [place] [address] 10 Nov, 2009 [facility] [address] [id number] [address] [place] [address], [place] [address] 15 Feb, 2009 [facility] [address] [id number] [address] [place] [address], [place] [address] 15 Feb, 2009 [facility] [address] [id number] [address] [place] [address], [place] [address] 16 Jan, 2009 [facility] [address] [id number] [address] [place] [address], [place] [address] 16 Jan, 2009 [facility] [address] [id number] [address] [place] [address], [place] [address] 13 Dec, 2008 [facility] [address] [id number] [address] [place] [address], [place] [address] 13 Dec, 2008 [facility] [address] [id number] [address] [place] [address], [place] [address] 15 Nov, 2008 [facility] [address] [id number] [address] [place] [address], [place] [address] Oct, [facility] [address] [facility]NOTE [facility]] [id number] [address] [place] [id number] Sep, [facility] [address] [facility]NOTE [facility]] [id number] [address] [place] [id number] Aug, IMMUNIZATIONS No Known Immunizations SOCIAL HISTORY Never Assessed REASON FOR VISIT [place] VITAL SIGNS MEDICATIONS Unknown [...] replacement 2018 Hospitalization History surgeries Hospitalization History pneumonia-[facility] 05/2018
--- OUTSIDE RECORDS SUMMARY | 2019-05-19 21:03 | XMS REPORT | Continuity of Care Document ---
Author Organization Unknown Address Unknown Phone Unavailable Allergies Active Description Code Type Severity Reaction Onset Reported/Identified Relationship to Patient Clinical Status Yes Lisinopril HCTZ Drug Allergy 12/16/2008 Yes No Known Drug Allergies [id number] Drug Allergy Unknown N/A 04/18/2018 Medications There is no data. Problems Date Dx Coded Attending Type Code Diagnosis Diagnosed By CLIFF CUELLAR Ot C91.10 CHRONIC LYMPHOCYTIC LEUK OF B-CELL TYPE CLIFF CUELLAR Ot D64.9 ANEMIA, UNSPECIFIED CLIFF CUELLAR Ot E11.9 TYPE 2 DIABETES MELLITUS WITHOUT COMPLIC CLIFF CUELLAR Ot I10 ESSENTIAL (PRIMARY) HYPERTENSION CLIFF CUELLAR Ot Z51.11 ENCOUNTER FOR ANTINEOPLASTIC CHEMOTHERAP CLIFF CUELLAR Ot Z79.4 MCC (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 OF INSULIN CLIFF CUELLAR Ot Z79.82 MCC (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 OF ASPIRIN CLIFF CUELLAR Ot Z79.899 OTHER MARKER ASSEMBLER (CURRENT) DRUG THERAPY CLIFF CUELLAR Ot Z96.6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, BILAT SADE SIERRA MD Ot C91.1 0 CHRONIC LYMPHOCYTIC LEUK OF B-CELL TYPE SADE SIERRA MD, Ot D64.9 ANEMIA, UNSPECIFIED SADE SIERRA MD Ot E11.9 TYPE 2 DIABETES MELLITUS WITHOUT COMPLIC SADE ISERRA MD Ot I10 ESSENTIAL (PRIMARY) HYPERTENSION SADE SIERRA MD Ot Z51.1 1 ENCOUNTER FOR ANTINEOPLASTIC CHEMOTHERAP SADE SIERRA MD Ot Z79.4 MCC (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 OF INSULIN MARIELA ALANIZ, SADE Ot Z79.8 2 [facility] (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 OF ASPIRIN SADE SIERRA MD Ot Z79.8 99 OTHER [facility] (CURRENT) DRUG THERAPY SADE SIERRA MD Ot 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, BILAT ALVA ALANIZ, JARRETT Chou Ot Z47 .1 AFTERCARE FOLLOWING JOINT REPLACEMENT [place]SE[place] ALVA ALANIZ, JARRETT Chou Ot Z96.652 PRESENCE OF LEFT ARTIFICIAL KNEE JOINT 02/03/1248 JARRETT CALLE MD Ot Z47.1 AFTERCARE FOLLOWING JOINT REPLACEMENT MOSELEY 02/03/1248 ALVA ALANIZ, JARRETT Chou Ot Z96.651 PRESENCE OF RIGHT ARTIFICIAL KNEE JOINT 08/15/2008 250.00 MAREK BETES MELLITUS TYPE 2 08/15/2008 401.1 ESSE NTIAL HYPERTENSION BENIGN 08/15/2008 SHADIA BLAIR APRN 250.00 DIABETES MELLITUS TYPE 2 08/15/2008 SHADIA BLAIR APRN 40 1.1 ESSENTIAL HYPERTENSION BENIGN 08/15/2008 250.00 MAREK BETES MELLITUS TYPE 2 08/15/2008 401.1 ESSE NTIAL HYPERTENSION BENIGN 08/15/2008 SHADIA BLAIR APRN 250.00 DIABETES MELLITUS TYPE 2 08/15/2008 SHADIA BLAIR APRN 40 1.1 ESSENTIAL HYPERTENSION BENIGN 08/15/2008 250.00 MAREK BETES MELLITUS TYPE 2 08/15/2008 401.1 ESSE NTIAL HYPERTENSION BENIGN 08/15/2008 250.00 MAREK BETES MELLITUS TYPE 2 08/15/2008 401.1 ESSE NTIAL HYPERTENSION BENIGN 08/15/2008 DRAPER DO, ADAM K 250.00 DIABETES MELLITUS TYPE 2 08/15/2008 DRAPER DO, ADAM K 401.1 ESSENTIAL HYPERTENSION BENIGN 08/15/2008 SHADIA BLAIR APRN 250.00 DIABETES MELLITUS TYPE 2 08/15/2008 SHADIA BLAIR APRN 40 1.1 ESSENTIAL HYPERTENSION BENIGN 08/15/2008 SHADIA BLAIR APRN 250.00 DIABETES MELLITUS TYPE 2 08/15/2008 SHADIA BLAIR APRN 40 1.1 ESSENTIAL HYPERTENSION BENIGN 08/15/2008 DRAPER DO, ADAM K 250.00 DIABETES MELLITUS TYPE 2 08/15/2008 DRAPER DO, ADAM K 401.1 ESSENTIAL HYPERTENSION BENIGN 08/15/2008 ROSSY ANIMAL HUSBANDRY PROFESSOR, SHADIA T 250.00 DIABETES MELLITUS TYPE 2 08/15/2008 ROSSY ANIMAL HUSBANDRY PROFESSOR, SHADIA T 40 1.1 ESSENTIAL HYPERTENSION BENIGN 08/15/2008 ZOE REED MD 250.0 0 DIABETES MELLITUS TYPE 2 08/15/2008 ZOE REED MD 401.1 ESSENTIAL HYPERTENSION BENIGN 08/15/2008 DRAPER DO, ADAM K 250.00 DIABETES MELLITUS TYPE 2 08/15/2008 DRAPER DO, ADAM K 401.1 ESSENTIAL HYPERTENSION BENIGN 08/15/2008 ROSSY ANIMAL HUSBANDRY PROFESSOR, SHADIA T 250.00 DIABETES MELLITUS TYPE 2 08/15/2008 ROSSY ANIMAL HUSBANDRY PROFESSOR, SHADIA T 40 1.1 ESSENTIAL HYPERTENSION BENIGN 08/15/2008 ROSSY ANIMAL HUSBANDRY PROFESSOR, SHADIA T 250.00 DIABETES MELLITUS TYPE 2 08/15/2008 ROSSY ANIMAL HUSBANDRY PROFESSOR, SHADIA T 40 1.1 ESSENTIAL HYPERTENSION BENIGN 08/15/2008 ROSSY ANIMAL HUSBANDRY PROFESSOR, SHADIA T 250.00 DIABETES MELLITUS TYPE 2 08/15/2008 ROSSY ANIMAL HUSBANDRY PROFESSOR, SHADIA T 40 1.1 ESSENTIAL HYPERTENSION BENIGN 08/15/2008 ROSSY ANIMAL HUSBANDRY PROFESSOR, SHADIA T 250.00 DIABETES MELLITUS TYPE 2 08/15/2008 ROSSY ANIMAL HUSBANDRY PROFESSOR, SHADIA T 40 1.1 ESSENTIAL HYPERTENSION BENIGN 08/15/2008 ROSSY ANIMAL HUSBANDRY PROFESSOR, SHADIA T 250.00 DIABETES MELLITUS TYPE 2 08/15/2008 ROSSY ANIMAL HUSBANDRY PROFESSOR, SHADIA T 40 1.1 ESSENTIAL HYPERTENSION BENIGN 08/15/2008 DRAPER DO, ADAM [...] SCREENING FOR OTHER BACTER 07/13/2017 JARRETT CALLE MD, Ot M17.12 UNILATERAL [...] OTHER BACTER 07/22/2017 JARRETT CALLE MD Ot D6 2 ACUTE POSTHEMORRHAGIC ANEMIA 07/22/2017 JARRETT CALLE MD Ot E11.9 TYPE 2 DIABETES MELLITUS WITHOUT COMPLIC 07/22/2017 JARRETT CALLE MD Ot E78.5 HYPERLIPIDEMIA, UNSPECIFIED 07/22/2017 JARRETT CALLE MD Ot I1 0 ESSENTIAL (PRIMARY) HYPERTENSION 07/22/2017 JARRETT CALLE MD Ot M17.12 UNILATERAL PRIMARY OSTEOARTHRITIS, LEFT 07/22/2017 JARRETT CALLE MD Ot Z79.4 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 08/23/2017 JARRETT CALLE [...] ARTIFICIAL KNEE JOINT 09/20/2017 NYA ALANIZ, TR M Ot Z13.0 ENCNTR SCREEN FOR DIS OF THE BLD/BLD-FOR 09/23/2017 JARRETT CALLE MD Ot E11.9 TYPE 2 DIABETES MELLITUS WITHOUT COMPLIC 09/23/2017 JARRETT CALLE MD Ot E78.2 MIXED HYPERLIPIDEMIA 09/23/2017 JARRETT CALLE MD Ot I1 0 ESSENTIAL (PRIMARY) HYPERTENSION 09/23/2017 JARRETT CALLE MD Ot M17.11 UNILATERAL PRIMARY OSTEOARTHRITIS, RIGHT 09/23/2017 JARRETT CALLE MD, Ot Z13.0 ENCNTR SCREEN FOR DIS OF THE BLD/BLD-FOR 09/23/2017 JARRETT CALLE MD, Ot Z79.4 MCC (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 OF INSULIN 09/23/2017 JARRETT CALLE [...] CUELLAR Ot I10 ESSENTIAL (PRIMARY) HYPERTENSION 12/01/2017 CLIFF CUELLAR Ot Z79.4 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 12/01/2017 POLO, BOBAN N Ot Z79.82 MCC (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 OF ASPIRIN 12/01/2017 CLIFF CUELLAR N Ot Z79.899 OTHER MARKER ASSEMBLER (CURRENT) DRUG THERAPY 12/01/2017 CLIFF CUELLAR N Ot Z96.6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, BILAT 12/01/2017 CLIFF CUELLAR N Ot D72.820 LYMPHOCYTOSIS (SYMPTOMATIC) 12/01/2017 CLIFF CUELLAR Ot R59.1 GENERALIZED ENLARGED LYMPH NODES 01/08/2018 JARRETT CALLE MD Ot M17.0 BILATERAL PRIMARY OSTEOARTHRITIS OF KNEE 01/08/2018 JARRETT CALLE MD Ot Z96.652 PRESENCE OF LEFT ARTIFICIAL KNEE JOINT 01/11/2018 CLIFF CUELLAR Ot D64.9 ANEMIA, UNSPECIFIED 01/11/2018 CLIFF CUELLAR N Ot D72.820 LYMPHOCYTOSIS (SYMPTOMATIC) 01/11/2018 CLIFF CUELLAR N Ot E11.9 TYPE 2 DIABETES MELLITUS WITHOUT COMPLIC 01/11/2018 CLIFF CUELLAR N Ot I10 ESSENTIAL (PRIMARY) HYPERTENSION 01/11/2018 CLIFF CUELLAR N Ot Z79.4 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 01/11/2018 CLIFF CUELLAR N Ot Z79.82 MCC (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 OF ASPIRIN 01/11/2018 CLIFF CUELLAR N Ot Z79.899 OTHER MARKER ASSEMBLER (CURRENT) DRUG THERAPY 01/11/2018 CLIFF CUELLAR N [...] TYPE 2 DIABETES MELLITUS WITHOUT COMPLIC 01/31/2018 CLIFF CUELLAR N Ot I10 ESSENTIAL (PRIMARY) HYPERTENSION 01/31/2018 CLIFF CUELLAR N Ot Z79.4 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 01/31/2018 POLO, BOBAN N Ot Z79.82 MCC (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 OF ASPIRIN 01/31/2018 POLOVANDANA YOUSIFAN N Ot Z79.899 OTHER MARKER ASSEMBLER (CURRENT) DRUG THERAPY 01/31/2018 CLIFF CUELLAR N Ot Z96.6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, BILAT 02/01/2018 CLIFF CUELLAR N Ot D64.9 ANEMIA, UNSPECIFIED 02/01/2018 POLOVANDANAAN N Ot D72.820 LYMPHOCYTOSIS (SYMPTOMATIC) 02/01/2018 POLO, VANDANAIZA N Ot E11.9 TYPE 2 DIABETES MELLITUS WITHOUT COMPLIC 02/01/2018 POLO BOBAN N Ot I10 ESSENTIAL (PRIMARY) HYPERTENSION 02/01/2018 POLOVANDANAAN N Ot Z79.4 MCC (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 OF INSULIN 02/01/2018 POLO, VANDANAAN N Ot 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 02/01/2018 POLOCLIFF YOUSIF N Ot Z79.899 OTHER MARKER ASSEMBLER (CURRENT) DRUG THERAPY 02/01/2018 CLIFF CUELLAR N Ot Z96.6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, BILAT 03/12/2018 POLO BOBAN N Ot D64.9 ANEMIA, UNSPECIFIED 03/12/2018 POLO BOBAN N Ot D72.820 LYMPHOCYTOSIS (SYMPTOMATIC) 03/12/2018 POLO, BOBIZA N Ot E11.9 TYPE 2 DIABETES MELLITUS WITHOUT COMPLIC 03/12/2018 POLO BOBAN N Ot I10 ESSENTIAL (PRIMARY) HYPERTENSION 03/12/2018 POLO, VANDANAIZA N Ot Z79.4 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 03/12/2018 POLO VANDANAIZA N Ot 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 03/12/2018 POLOVANDANAAN N Ot Z79.899 OTHER MARKER ASSEMBLER (CURRENT) DRUG THERAPY 03/12/2018 POLOVANDANAAN N Ot Z96.6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, BILAT 04/02/2018 POLO BOBAN N Ot D64.9 ANEMIA, UNSPECIFIED 04/02/2018 POLO, BOBAN N Ot D72.820 LYMPHOCYTOSIS (SYMPTOMATIC) 04/02/2018 POLO BOBAN N Ot E11.9 TYPE 2 DIABETES MELLITUS WITHOUT COMPLIC 04/02/2018 POLO BOBAN N Ot I10 ESSENTIAL (PRIMARY) HYPERTENSION 04/02/2018 CLIFF CUELLAR Ot Z79.4 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 04/02/2018 CLIFF CUELLAR Ot 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 04/02/2018 CLIFF CUELLAR Ot Z79.899 OTHER MCC (CURRENT) DRUG THERAPY 04/02/2018 CLIFF CUELLAR Ot Z96.6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, BILAT 04/04/2018 LISA PICKARDP Ot C91.10 CHRONIC LYMPHOCYTIC LEUK OF B-CELL TYPE 04/06/2018 PICKARDLISA Cope SCRATCH FINISHER Ot C91.10 CHRONIC LYMPHOCYTIC LEUK OF B-CELL TYPE 04/08/2018 LISA PICKARDP Ot C91.10 CHRONIC LYMPHOCYTIC LEUK OF B-CELL TYPE 04/13/2018 SUSY ROTHMAN DO Ot Z01.8 18 ENCOUNTER FOR OTHER PREPROCEDURAL EXAMIN 04/18/2018 SUSY ROTHMAN DO Ot C91.1 0 CHRONIC LYMPHOCYTIC LEUK OF B-CELL TYPE 04/18/2018 SUSY ROTHMAN DO B Ot E11.4 0 TYPE 2 DIABETES MELLITUS WITH DIABETIC N 04/18/2018 SUSY ROTHMAN DO B Ot E66.0 1 MORBID (SEVERE) OBESITY DUE TO EXCESS CA 04/18/2018 SUSY ROTHMAN DO B Ot E78.5 HYPERLIPIDEMIA, UNSPECIFIED 04/18/2018 ANDRES ROTHMAN DOIC B Ot I10 ESSENTIAL (PRIMARY) HYPERTENSION 04/18/2018 SUSY ROTHMAN DO B Ot R59.1 GENERALIZED ENLARGED LYMPH NODES 04/18/2018 SUSY ROTHMAN DO B Ot Z11.2 ENCOUNTER FOR SCREENING FOR OTHER BACTER 04/18/2018 SUSY ROTHMAN DO B Ot Z68.3 9 BODY MASS INDEX (BMI) 39.0-39.9, ADULT 04/18/2018 SUSY ROTHMAN DO B Ot Z79.4 MCC (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 OF INSULIN 04/18/2018 SUSY ROTHMAN DO B Ot Z79.8 2 MCC (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 OF ASPIRIN 04/18/2018 SUSY ROTHMAN DO B Ot Z79.8 99 OTHER MCC (CURRENT) DRUG THERAPY 04/18/2018 SUSY ROTHMAN DO B Ot 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, BILAT 04/24/2018 LORNA HOLLYSUSY B Ot C91.1 0 CHRONIC LYMPHOCYTIC LEUK OF B-CELL TYPE 04/24/2018 LORNA HOLLYSUSY B Ot E11.4 0 TYPE 2 DIABETES MELLITUS WITH DIABETIC N 04/24/2018 ANDRES ROTHMAN DOIC B Ot E66.0 1 MORBID (SEVERE) OBESITY DUE TO EXCESS CA 04/24/2018 LORNA HOLLYSUSY B Ot E78.5 HYPERLIPIDEMIA, UNSPECIFIED 04/24/2018 LORNA HOLLYANDRESIC B Ot I10 ESSENTIAL (PRIMARY) HYPERTENSION 04/24/2018 LORNA HOLLYANDRESIC B Ot R59.1 GENERALIZED ENLARGED LYMPH NODES 04/24/2018 LORNA HOLLYSUSY B Ot Z11.2 ENCOUNTER FOR SCREENING FOR OTHER BACTER 04/24/2018 LORNA HOLLYSUSY Ot Z68.3 9 BODY MASS INDEX (BMI) 39.0-39.9, ADULT 04/24/2018 LORNA HOLLYSUSY B Ot Z79.4 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 04/24/2018 LORNA HOLLY SUSY B Ot Z79.8 2 MARKER ASSEMBLER (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 OF ASPIRIN 04/24/2018 LORNA HOLLYANDRESIC B Ot Z79.8 99 OTHER MCC (CURRENT) DRUG THERAPY 04/24/2018 LORNA HOLLY SUSY B Ot 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, BILAT 04/25/2018 LISA PICKARD Ot C91.10 CHRONIC LYMPHOCYTIC LEUK OF B-CELL TYPE 04/29/2018 LESLI TATUM Ot E11.9 TYPE 2 DIABETES MELLITUS WITHOUT COMPLIC 04/29/2018 LESLI TATUMP Ot I10 ESSENTIAL (PRIMARY) HYPERTENSION 04/29/2018 LESLI TAUTMP Ot Z48.89 ENCOUNTER FOR OTHER SPECIFIED SURGICAL A 04/29/2018 LESLI TATUM Ot Z85.6 PERSONAL HISTORY OF LEUKEMIA 04/29/2018 LESLI TATUMP Ot Z90.89 ACQUIRED ABSENCE OF OTHER ORGANS 04/29/2018 LESLI TATUMP Ot Z96.6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, BILAT 04/29/2018 LESLI TATUM SCRATCH FINISHER Ot Z98.890 OTHER SPECIFIED POSTPROCEDURAL STATES 04/30/2018 CLIFF CUELLAR Ot C91.10 CHRONIC LYMPHOCYTIC LEUK OF B-CELL TYPE 04/30/2018 CLIFF CUELLAR Pranay Ot D64.9 ANEMIA, UNSPECIFIED 04/30/2018 CLIFF CUELLAR Pranay Ot E11.9 TYPE 2 DIABETES MELLITUS WITHOUT COMPLIC 04/30/2018 CLIFF CUELLAR Pranay Ot I10 ESSENTIAL (PRIMARY) HYPERTENSION 04/30/2018 CLIFF CUELLAR Pranay Ot Z51.11 ENCOUNTER FOR ANTINEOPLASTIC CHEMOTHERAP 04/30/2018 CLIFF CUELLAR Pranay Ot Z79.4 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 04/30/2018 CLIFF CUELLAR Pranay Ot Z79.82 MCC (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 OF ASPIRIN 04/30/2018 CLIFF CUELLAR Pranay Ot Z79.899 OTHER MARKER ASSEMBLER (CURRENT) DRUG THERAPY 04/30/2018 CLIFF CUELLAR Pranay Ot Z96.6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, BILAT 05/02/2018 ANDRES ROTHMAN DOIC B Ot C91.1 0 CHRONIC LYMPHOCYTIC LEUK OF B-CELL TYPE 05/02/2018 ANDRES ROTHMAN DOIC B Ot E11.4 0 TYPE 2 DIABETES MELLITUS WITH DIABETIC N 05/02/2018 ANDRES ROTHMAN DOIC B Ot E66.0 1 MORBID (SEVERE) OBESITY DUE TO EXCESS CA 05/02/2018 ANDRES ROTHMAN DOIC B Ot E78.5 HYPERLIPIDEMIA, UNSPECIFIED 05/02/2018 LORNA HOLLY SUSY B Ot I10 ESSENTIAL (PRIMARY) HYPERTENSION 05/02/2018 ANDRES ROTHMAN DOIC B Ot R59.1 GENERALIZED ENLARGED LYMPH NODES 05/02/2018 ANDRES ROTHMAN DOIC B Ot Z11.2 ENCOUNTER FOR SCREENING FOR OTHER BACTER 05/02/2018 ANDRES ROTHMAN DOIC B Ot Z68.3 9 BODY MASS INDEX (BMI) 39.0-39.9, ADULT 05/02/2018 ANDRES ROTHMAN DOIC B Ot Z79.4 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 05/02/2018 ANDRES ROTHMAN DOIC B Ot Z79.8 2 MARKER ASSEMBLER (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 OF ASPIRIN 05/02/2018 ANDRES ROTHMAN DOIC B Ot Z79.8 99 OTHER MARKER ASSEMBLER (CURRENT) DRUG THERAPY 05/02/2018 ANDRES ROTHMAN DOIC B Ot 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, BILAT 05/02/2018 RC, LESLI SCRATCH FINISHER Ot E11.9 TYPE 2 DIABETES MELLITUS WITHOUT COMPLIC 05/02/2018 LESLI TATUMP Ot I10 ESSENTIAL (PRIMARY) HYPERTENSION 05/02/2018 LESLI TATUMP Ot Z48.89 ENCOUNTER FOR OTHER SPECIFIED SURGICAL A 05/02/2018 LESLI TATUMP Ot Z85.6 PERSONAL HISTORY OF LEUKEMIA 05/02/2018 LESLI TATUMP Ot Z90.89 ACQUIRED ABSENCE OF OTHER ORGANS 05/02/2018 LESLI TATUMP Ot Z96.6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, BILAT 05/02/2018 LESLI TATUMP Ot Z98.890 OTHER SPECIFIED POSTPROCEDURAL STATES 05/06/2018 POLOCLIFF N Ot C91.10 CHRONIC LYMPHOCYTIC LEUK OF B-CELL TYPE 05/06/2018 CLIFF CUELLAR Ot D64.9 ANEMIA, UNSPECIFIED 05/06/2018 CLIFF CUELLAR N Ot E11.9 TYPE 2 DIABETES MELLITUS WITHOUT COMPLIC 05/06/2018 CLIFF CUELLAR N Ot I10 ESSENTIAL (PRIMARY) HYPERTENSION 05/06/2018 CLIFF CUELLAR Ot Z51.11 ENCOUNTER FOR ANTINEOPLASTIC CHEMOTHERAP 05/06/2018 CLIFF CUELLAR Ot Z79.4 MCC (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 OF INSULIN 05/06/2018 CLIFF CUELLAR N Ot 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 05/06/2018 CLIFF CUELLAR N Ot Z79.899 OTHER MARKER ASSEMBLER (CURRENT) DRUG THERAPY 05/06/2018 CLIFF CUELLAR Ot Z96.6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, BILAT 05/07/2018 CLIFF CUELLAR Ot C91.10 CHRONIC LYMPHOCYTIC LEUK OF B-CELL TYPE 05/07/2018 CLIFF CUELLAR N Ot D64.9 ANEMIA, UNSPECIFIED 05/07/2018 CLIFF CUELLAR N Ot E11.9 TYPE 2 DIABETES MELLITUS WITHOUT COMPLIC 05/07/2018 CLIFF CUELLAR N Ot I10 ESSENTIAL (PRIMARY) HYPERTENSION 05/07/2018 CLIFF CUELLAR N Ot Z51.11 ENCOUNTER FOR ANTINEOPLASTIC CHEMOTHERAP 05/07/2018 CLIFF CUELLAR N Ot Z79.4 MCC (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 OF INSULIN 05/07/2018 CLIFF CUELLAR N Ot 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 05/07/2018 CLIFF CUELLAR Pranay Ot Z79.899 OTHER MARKER ASSEMBLER (CURRENT) DRUG THERAPY 05/07/2018 CLIFF CUELLAR Pranay Ot Z96.6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, BILAT 05/07/2018 POLO CLIFF Pires Ot C91.10 CHRONIC LYMPHOCYTIC LEUK OF B-CELL TYPE 05/07/2018 POLO VANDANAIZA Pranay Ot D64.9 ANEMIA, UNSPECIFIED 05/07/2018 POLO CLIFF N Ot E11.9 TYPE 2 DIABETES MELLITUS WITHOUT COMPLIC 05/07/2018 POLOCLIFF N Ot I10 ESSENTIAL (PRIMARY) HYPERTENSION 05/07/2018 POLOCLIFF N Ot Z51.11 ENCOUNTER FOR ANTINEOPLASTIC CHEMOTHERAP 05/07/2018 POLOCLIFF Ot Z79.4 MCC (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 OF INSULIN 05/07/2018 POLOCLIFF Ot Z79.82 MCC (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 OF ASPIRIN 05/07/2018 POLOCLIFF Ot Z79.899 OTHER MARKER ASSEMBLER (CURRENT) DRUG THERAPY 05/07/2018 POLO VANDANAIZA Pranay Ot Z96.6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, BILAT 05/15/2018 NYA ALANIZ, TR Puri Ot Z13.0 ENCNTR SCREEN FOR DIS OF THE BLD/BLD-FOR 05/15/2018 CLIFF CUELLAR Pranay Ot D72.820 LYMPHOCYTOSIS (SYMPTOMATIC) 05/15/2018 POLOVANDANAIZA Pranay Ot R59.1 GENERALIZED ENLARGED LYMPH NODES 05/15/2018 ALVA ALANIZ, JARRETT Chou Ot M17.0 BILATERAL PRIMARY OSTEOARTHRITIS OF KNEE 05/15/2018 ALVA ALANIZ, JARRETT Chou Ot Z96.652 PRESENCE OF LEFT ARTIFICIAL KNEE JOINT 05/15/2018 LISA PICKARD Ot C91.10 CHRONIC LYMPHOCYTIC LEUK OF B-CELL TYPE 05/15/2018 POLOCLIFF Ot C91.10 CHRONIC LYMPHOCYTIC LEUK OF B-CELL TYPE 05/15/2018 POLOCLIFF Ot D64.9 ANEMIA, UNSPECIFIED 05/15/2018 POLO CLIFF Pires Ot E11.9 TYPE 2 DIABETES MELLITUS WITHOUT COMPLIC 05/15/2018 POLOCLIFF Ot I10 ESSENTIAL (PRIMARY) HYPERTENSION 05/15/2018 CLIFF CUELLAR Ot Z51.11 ENCOUNTER FOR ANTINEOPLASTIC CHEMOTHERAP 05/15/2018 CLIFF CUELLAR Ot Z79.4 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 05/15/2018 CLIFF CUELLAR N Ot 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 05/15/2018 CLIFF CUELLAR Ot Z79.899 OTHER MARKER ASSEMBLER (CURRENT) DRUG THERAPY 05/15/2018 CLIFF CUELLAR Ot Z96.6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, BILAT 05/15/2018 DELDRAGAN DO SUSY B Ot Z01.8 18 ENCOUNTER FOR OTHER PREPROCEDURAL EXAMIN 05/16/2018 LORNA DO SUSY B Ot C91.1 0 CHRONIC LYMPHOCYTIC LEUK OF B-CELL TYPE 05/16/2018 DELDRAGAN DO SUSY B Ot E11.9 TYPE 2 DIABETES MELLITUS WITHOUT COMPLIC 05/16/2018 DELMAN DO, SUSY B Ot I10 ESSENTIAL (PRIMARY) HYPERTENSION 05/16/2018 DELDRAGAN DO SUSY B Ot I87.2 VENOUS INSUFFICIENCY (CHRONIC) (PERIPHER 05/16/2018 LORNA DO SUSY B Ot Z11.2 ENCOUNTER FOR SCREENING FOR OTHER BACTER 05/16/2018 DELMAN DO SUSY B Ot Z79.4 MCC (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 OF INSULIN 05/16/2018 LORNA HOLLY SUSY B Ot Z79.8 99 OTHER MARKER ASSEMBLER (CURRENT) DRUG THERAPY 05/16/2018 LORNA HOLLY SUSY B Ot 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, BILAT 05/16/2018 LORNA HOLLY SUSY B Ot Z01.8 18 ENCOUNTER FOR OTHER PREPROCEDURAL EXAMIN 05/17/2018 CLIFF CUELLAR Ot C91.10 CHRONIC LYMPHOCYTIC LEUK OF B-CELL TYPE 05/17/2018 CLIFF CUELLAR Ot D64.9 ANEMIA, UNSPECIFIED 05/17/2018 CLIFF CUELLAR Ot E11.9 TYPE 2 DIABETES MELLITUS WITHOUT COMPLIC 05/17/2018 CLIFF CUELLAR N Ot I10 ESSENTIAL (PRIMARY) HYPERTENSION 05/17/2018 CLIFF CUELLAR Ot Z51.11 ENCOUNTER FOR ANTINEOPLASTIC CHEMOTHERAP 05/17/2018 CLIFF CUELLAR Ot Z79.4 MCC (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 OF INSULIN 05/17/2018 POLO, BOBAN N Ot Z79.82 MCC (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 OF ASPIRIN 05/17/2018 CLIFF CUELLAR N Ot Z79.899 OTHER MARKER ASSEMBLER (CURRENT) DRUG THERAPY 05/17/2018 CLIFF CUELLAR N Ot Z96.6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, BILAT 05/17/2018 CLIFF CUELLAR N Ot C91.10 CHRONIC LYMPHOCYTIC LEUK OF B-CELL TYPE 05/17/2018 POLO CLIFF Pires Ot D64.9 ANEMIA, UNSPECIFIED 05/17/2018 POLO CLIFF N Ot E11.9 TYPE 2 DIABETES MELLITUS WITHOUT COMPLIC 05/17/2018 POLO VANDANAIZA N Ot I10 ESSENTIAL (PRIMARY) HYPERTENSION 05/17/2018 CLIFF CUELLAR Pranay Ot Z51.11 ENCOUNTER FOR ANTINEOPLASTIC CHEMOTHERAP 05/17/2018 POLO CLIFF Pranay Ot Z79.4 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 05/17/2018 POLOVANDANAIZA N Ot Z79.82 MCC (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 OF ASPIRIN 05/17/2018 CLIFF CUELLAR Pranay Ot Z79.899 OTHER MCC (CURRENT) DRUG THERAPY 05/17/2018 CLIFF CUELLAR Pranay Ot Z96.6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, BILAT 05/19/2018 LORNA DO, SUSY B Ot C91.1 0 CHRONIC LYMPHOCYTIC LEUK OF B-CELL TYPE 05/19/2018 DELDRAGAN DO, SUSY B Ot E11.9 TYPE 2 DIABETES MELLITUS WITHOUT COMPLIC 05/19/2018 DELMAN DO, SUSY B Ot I10 ESSENTIAL (PRIMARY) HYPERTENSION 05/19/2018 LORNA DO, SUSY B Ot I87.2 VENOUS INSUFFICIENCY (CHRONIC) (PERIPHER 05/19/2018 CRISTÓBALMAN DO, SUSY B Ot Z11.2 ENCOUNTER FOR SCREENING FOR OTHER BACTER 05/19/2018 DELMAN DO, SUSY B Ot Z79.4 MCC (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 OF INSULIN 05/19/2018 LORNA DO, SUSY B Ot Z79.8 99 OTHER MARKER ASSEMBLER (CURRENT) DRUG THERAPY 05/19/2018 DELMAN DO, SUSY B Ot 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, BILAT 05/22/2018 LORNA DO, SUSY B Ot C91.1 0 CHRONIC LYMPHOCYTIC LEUK OF B-CELL TYPE 05/22/2018 DELMAN DO, SUSY B Ot E11.9 TYPE 2 DIABETES MELLITUS WITHOUT COMPLIC 05/22/2018 LORNA DO, SUSY B Ot I10 ESSENTIAL (PRIMARY) HYPERTENSION 05/22/2018 LORNA HOLLY SUSY B Ot I87.2 VENOUS INSUFFICIENCY (CHRONIC) (PERIPHER 05/22/2018 LORNA HOLLY SUSY B Ot Z11.2 ENCOUNTER FOR SCREENING FOR OTHER BACTER 05/22/2018 CRISTÓBALDRAGAN ANDRES HOLLYIC B Ot Z79.4 MCC (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 OF INSULIN 05/22/2018 LORNA HOLLYANDRESIC B Ot Z79.8 99 OTHER MCC (CURRENT) DRUG THERAPY 05/22/2018 LORNA HOLLY SUSY B Ot 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, BILAT 05/24/2018 NAIF TRAYLOR MD Ot C91.1 0 CHRONIC LYMPHOCYTIC LEUK OF B-CELL TYPE 05/24/2018 NAIF TRAYLOR MD Ot E11.9 TYPE 2 DIABETES MELLITUS WITHOUT COMPLIC 05/24/2018 NAIF TRAYLOR MD Ot I10 ESSENTIAL (PRIMARY) HYPERTENSION 05/24/2018 NAIF TRAYLOR MD Ot J10.0 8 INFLUENZA DUE TO OTH IDENT INFLUENZA VIR 05/24/2018 NAIF TRAYLOR MD Ot J18.1 LOBAR PNEUMONIA, UNSPECIFIED ORGANISM 05/24/2018 NAIF TRAYLOR MD Ot J18.9 PNEUMONIA, UNSPECIFIED ORGANISM 05/24/2018 NAIF TRAYLOR MD Ot M19.9 1 PRIMARY OSTEOARTHRITIS, UNSPECIFIED SITE 05/24/2018 NAIF TRAYLOR MD Ot Z23 ENCOUNTER FOR IMMUNIZATION 05/24/2018 NAIF TRAYLOR MD Ot 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, BILAT 06/12/2018 CLIFF CUELLAR Ot C91.10 CHRONIC LYMPHOCYTIC LEUK OF B-CELL TYPE 06/12/2018 CLIFF CUELLAR Ot D64.9 ANEMIA, UNSPECIFIED 06/12/2018 CLIFF CUELLAR Ot E11.9 TYPE 2 DIABETES MELLITUS WITHOUT COMPLIC 06/12/2018 CLIFF CUELLAR Ot I10 ESSENTIAL (PRIMARY) HYPERTENSION 06/12/2018 CLIFF CUELLAR Ot Z51.11 ENCOUNTER FOR ANTINEOPLASTIC CHEMOTHERAP 06/12/2018 CILFF CUELLAR Ot Z79.4 MCC (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 OF INSULIN 06/12/2018 POLO BOBAN N Ot 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 06/12/2018 POLO, BOBAN N Ot Z79.899 OTHER MARKER ASSEMBLER (CURRENT) DRUG THERAPY 06/12/2018 POLO, BOBAN N Ot Z96.6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, BILAT 06/29/2018 POLO, BOBAN N Ot C91.10 CHRONIC LYMPHOCYTIC LEUK OF B-CELL TYPE 06/29/2018 POLO BOBIZA N Ot D64.9 ANEMIA, UNSPECIFIED 06/29/2018 POLO, BOBAN N Ot E11.9 TYPE 2 DIABETES MELLITUS WITHOUT COMPLIC 06/29/2018 POLO BOBAN N Ot I10 ESSENTIAL (PRIMARY) HYPERTENSION 06/29/2018 POLO BOBAN N Ot Z51.11 ENCOUNTER FOR ANTINEOPLASTIC CHEMOTHERAP 06/29/2018 POLO BOBAN N Ot 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.4 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 06/29/2018 POLO BOBAN N Ot Z79.82 MCC (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 OF ASPIRIN 06/29/2018 POLO BOBAN N Ot Z79.899 OTHER MCC (CURRENT) DRUG THERAPY 06/29/2018 POLO BOBAN N Ot Z96.6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, BILAT 07/02/2018 CLIFF CUELLAR N Ot C91.10 CHRONIC LYMPHOCYTIC LEUK OF B-CELL TYPE 07/02/2018 POLO BOBAN N Ot D64.9 ANEMIA, UNSPECIFIED 07/02/2018 POLO, BOBAN N Ot E11.9 TYPE 2 DIABETES MELLITUS WITHOUT COMPLIC 07/02/2018 POLO BOBAN N Ot I10 ESSENTIAL (PRIMARY) HYPERTENSION 07/02/2018 POLO BOBAN N Ot Z51.11 ENCOUNTER FOR ANTINEOPLASTIC CHEMOTHERAP 07/02/2018 POLO BOBAN N Ot 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 10 CHRONIC LYMPHOCYTIC LEUK OF B-CELL TYPE 07/02/2018 SADE SIERRA MD Ot D64. 9 ANEMIA, UNSPECIFIED 07/02/2018 SADE SIERRA MD Ot E11. 9 TYPE 2 DIABETES MELLITUS WITHOUT COMPLIC 07/02/2018 SADE SIERRA MD Ot I10 ESSENTIAL (PRIMARY) HYPERTENSION 07/02/2018 SADE SIERRA MD Ot Z51. 11 ENCOUNTER FOR ANTINEOPLASTIC CHEMOTHERAP 07/02/2018 SADE SIERRA MD Ot Z79. 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 82 MCC (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 OF ASPIRIN 07/02/2018 SADE SIERRA MD Ot Z79.899 OTHER MCC (CURRENT) DRUG THERAPY 07/02/2018 SADE SIERRA MD Ot Z96.6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, BILAT 07/02/2018 SADE SIERRA MD, Ot C91. 10 CHRONIC LYMPHOCYTIC LEUK OF B-CELL TYPE 07/02/2018 SADE SIERRA MD Ot D64. 9 ANEMIA, UNSPECIFIED 07/02/2018 SADE SIERRA MD Ot E11. 9 TYPE 2 DIABETES MELLITUS WITHOUT COMPLIC 07/02/2018 SADE SIERRA MD Ot I10 ESSENTIAL (PRIMARY) HYPERTENSION 07/02/2018 SADE SIERRA MD, Ot Z51. 11 ENCOUNTER FOR ANTINEOPLASTIC CHEMOTHERAP 07/02/2018 SADE SIERRA MD Ot Z79. 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 82 MARKER ASSEMBLER (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 OF ASPIRIN 07/02/2018 SADE SIERRA MD Ot Z79.899 OTHER MARKER ASSEMBLER (CURRENT) DRUG THERAPY 07/02/2018 SADE SIERRA MD Ot Z96.6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, BILAT 07/03/2018 SADE SIERRA MD, Ot C91. 10 CHRONIC LYMPHOCYTIC LEUK OF B-CELL TYPE 07/03/2018 SADE SIERRA MD Ot D64. 9 ANEMIA, UNSPECIFIED 07/03/2018 SADE SIERRA MD Ot E11. 9 TYPE 2 DIABETES MELLITUS WITHOUT COMPLIC 07/03/2018 SADE SIERRA MD Ot I10 ESSENTIAL (PRIMARY) HYPERTENSION 07/03/2018 SADE SIERRA MD, Ot Z51. 11 ENCOUNTER FOR ANTINEOPLASTIC CHEMOTHERAP 07/03/2018 SADE SIERRA MD, Ot Z79. 4 MCC (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 OF INSULIN 07/03/2018 SADE SIERRA MD, Ot Z79. 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 07/03/2018 SADE SIERRA MD, Ot Z96.6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, BILAT 07/03/2018 NYA ALANIZ, TR Puri Ot Z13.0 ENCNTR SCREEN FOR DIS OF THE BLD/BLD-FOR 07/03/2018 CLIFF CUELLAR Ot D72.820 LYMPHOCYTOSIS (SYMPTOMATIC) 07/03/2018 CLIFF CUELLAR Ot R59.1 GENERALIZED ENLARGED LYMPH NODES 07/03/2018 JARRETT CALLE MD Ot M17.0 BILATERAL PRIMARY OSTEOARTHRITIS OF KNEE 07/03/2018 JARRETT CALLE MD, Ot Z96.652 PRESENCE OF LEFT ARTIFICIAL KNEE JOINT 07/03/2018 LISA PICKARD Ot C91.10 CHRONIC LYMPHOCYTIC LEUK OF B-CELL TYPE 07/03/2018 CLIFF CUELLAR Ot C91.10 CHRONIC LYMPHOCYTIC LEUK OF B-CELL TYPE 07/03/2018 CLIFF CUELLAR Ot D64.9 ANEMIA, UNSPECIFIED 07/03/2018 CLIFF CUELLAR Ot E11.9 TYPE 2 DIABETES MELLITUS WITHOUT COMPLIC 07/03/2018 CLIFF CUELLAR Ot I10 ESSENTIAL (PRIMARY) HYPERTENSION 07/03/2018 CLIFF CUELLAR Ot Z51.11 ENCOUNTER FOR ANTINEOPLASTIC CHEMOTHERAP 07/03/2018 CLIFF CUELLAR Ot Z79.4 MCC (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 OF INSULIN 07/03/2018 CLIFF CUELLAR Ot Z79.82 MCC (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 OF ASPIRIN 07/03/2018 CLIFF CUELLAR Ot Z79.899 OTHER MCC (CURRENT) DRUG THERAPY 07/03/2018 CLIFF CUELLAR Ot Z96.6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, BILAT 07/13/2018 CLIFF CUELLAR Ot C91.10 CHRONIC LYMPHOCYTIC LEUK OF B-CELL TYPE 07/13/2018 POLOVANDANAAN N Ot D64.9 ANEMIA, UNSPECIFIED 07/13/2018 POLO, BOBAN N Ot E11.9 TYPE 2 DIABETES MELLITUS WITHOUT COMPLIC 07/13/2018 POLO, BOBAN N Ot I10 ESSENTIAL (PRIMARY) HYPERTENSION 07/13/2018 POLO BOBAN N Ot Z51.11 ENCOUNTER FOR ANTINEOPLASTIC CHEMOTHERAP 07/13/2018 POLOCLIFF N Ot Z79.4 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 07/13/2018 POLO BOBAN N Ot 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 07/13/2018 POLO, BOBAN N Ot Z79.899 OTHER MCC (CURRENT) DRUG THERAPY 07/13/2018 POLO BOBAN N Ot Z96.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, BILAT 07/20/2018 POLOCLIFF N Ot C91.10 CHRONIC LYMPHOCYTIC LEUK OF B-CELL TYPE 07/20/2018 POLO BOBAN N Ot D64.9 ANEMIA, UNSPECIFIED 07/20/2018 POLO BOBAN N Ot E11.9 TYPE 2 DIABETES MELLITUS WITHOUT COMPLIC 07/20/2018 POLO, BOBAN N Ot I10 ESSENTIAL (PRIMARY) HYPERTENSION 07/20/2018 POLO BOBAN N Ot Z51.11 ENCOUNTER FOR ANTINEOPLASTIC CHEMOTHERAP 07/20/2018 POLOCLIFF N Ot Z79.4 MCC (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 OF INSULIN 07/20/2018 POLOCLIFF N Ot Z79.82 MCC (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 OF ASPIRIN 07/20/2018 POLOCLIFF N Ot Z79.899 OTHER MARKER ASSEMBLER (CURRENT) 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 THERAPY 07/20/2018 POLOVANDANAAN N Ot Z96.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, BILAT 07/31/2018 POLOCLIFF N Ot C91.10 CHRONIC LYMPHOCYTIC LEUK OF B-CELL TYPE 07/31/2018 POLO BOBAN N Ot D64.9 ANEMIA, UNSPECIFIED 07/31/2018 POLO, BOBAN N Ot E11.9 TYPE 2 DIABETES MELLITUS WITHOUT COMPLIC 07/31/2018 POLO, BOBAN N Ot I10 ESSENTIAL (PRIMARY) HYPERTENSION 07/31/2018 POLO BOBAN N Ot Z51.11 ENCOUNTER FOR ANTINEOPLASTIC CHEMOTHERAP 07/31/2018 POLOCLIFF YOUSIF N Ot Z79.4 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 07/31/2018 POLOCLIFF N Ot Z79.82 MCC (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 OF ASPIRIN 07/31/2018 POLO CLIFF N Ot Z79.899 OTHER MARKER ASSEMBLER (CURRENT) DRUG THERAPY 07/31/2018 POLO VANDANAIZA N Ot Z96.6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, BILAT 08/22/2018 POLO CLIFF N Ot C91.10 CHRONIC LYMPHOCYTIC LEUK OF B-CELL TYPE 09/10/2018 POLOCLIFF N Ot C91.10 CHRONIC LYMPHOCYTIC LEUK OF B-CELL TYPE 09/10/2018 POLOCLIFF N Ot D64.9 ANEMIA, UNSPECIFIED 09/10/2018 POLO BOBAN N Ot E11.9 TYPE 2 DIABETES MELLITUS WITHOUT COMPLIC 09/10/2018 POLO BOBAN N Ot I10 ESSENTIAL (PRIMARY) HYPERTENSION 09/10/2018 POLOCLIFF N Ot Z51.11 ENCOUNTER FOR ANTINEOPLASTIC CHEMOTHERAP 09/10/2018 POLOCLIFF N Ot Z79.4 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 09/10/2018 POLOCLIFF N Ot Z79.82 MCC (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 OF ASPIRIN 09/10/2018 POLOCLIFF N Ot Z79.899 OTHER MCC (CURRENT) DRUG THERAPY 09/10/2018 POLO VANDANAIZA N Ot Z96.6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, BILAT 09/12/2018 POLOCLIFF N Ot C91.10 CHRONIC LYMPHOCYTIC LEUK OF B-CELL TYPE 10/01/2018 POLOCLIFF N Ot C91.10 CHRONIC LYMPHOCYTIC LEUK OF B-CELL TYPE 10/01/2018 POLOCLIFF N Ot D64.9 ANEMIA, UNSPECIFIED 10/01/2018 POLOVANDANAAN N Ot E11.9 TYPE 2 DIABETES MELLITUS WITHOUT COMPLIC 10/01/2018 POLO BOBAN N Ot I10 ESSENTIAL (PRIMARY) HYPERTENSION 10/01/2018 POLO BOBAN N Ot Z51.11 ENCOUNTER FOR ANTINEOPLASTIC CHEMOTHERAP 10/01/2018 POLOCLIFF N Ot Z79.4 MCC (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 OF INSULIN 10/01/2018 POLO, BOBAN N Ot Z79.82 MCC (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 OF ASPIRIN 10/01/2018 POLO, BOBAN N Ot Z79.899 OTHER MCC (CURRENT) DRUG THERAPY 10/01/2018 POLO, BOBAN N Ot Z96.6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, BILAT 10/02/2018 POLO BOBAN N Ot C91.10 CHRONIC LYMPHOCYTIC LEUK OF B-CELL TYPE 10/02/2018 POLO BOBAN N Ot D64.9 ANEMIA, UNSPECIFIED 10/02/2018 POLO, BOBAN N Ot E11.9 TYPE 2 DIABETES MELLITUS WITHOUT COMPLIC 10/02/2018 POLO, BOBAN N Ot I10 ESSENTIAL (PRIMARY) HYPERTENSION 10/02/2018 POLO, BOBAN N Ot Z51.11 ENCOUNTER FOR ANTINEOPLASTIC CHEMOTHERAP 10/02/2018 POLO BOBAN N Ot Z79.4 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 10/02/2018 POLO BOBAN N Ot 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 10/02/2018 POLO BOBAN N Ot Z79.899 OTHER MARKER ASSEMBLER (CURRENT) DRUG THERAPY 10/02/2018 POLO BOBAN N Ot Z96.6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, BILAT 10/09/2018 POLO BOBAN N Ot C91.10 CHRONIC LYMPHOCYTIC LEUK OF B-CELL TYPE 10/09/2018 POLO BOBAN N Ot D64.9 ANEMIA, UNSPECIFIED 10/09/2018 POLO BOBAN N Ot E11.9 TYPE 2 DIABETES MELLITUS WITHOUT COMPLIC 10/09/2018 POLO BOBAN N Ot I10 ESSENTIAL (PRIMARY) HYPERTENSION 10/09/2018 POLO BOBAN N Ot Z51.11 ENCOUNTER FOR ANTINEOPLASTIC CHEMOTHERAP 10/09/2018 POLO BOBAN N Ot Z79.4 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 10/09/2018 POLO BOBAN N Ot 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 10/09/2018 POLO, BOBAN N Ot Z79.899 OTHER MCC (CURRENT) DRUG THERAPY 10/09/2018 POLO, BOBAN N Ot Z96.6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, BILAT 11/14/2018 POLO BOBAN N Ot C91.10 CHRONIC LYMPHOCYTIC LEUK OF B-CELL TYPE 11/14/2018 POLO BOBAN N Ot D64.9 ANEMIA, UNSPECIFIED 11/14/2018 POLO, BOBAN N Ot E11.9 TYPE 2 DIABETES MELLITUS WITHOUT COMPLIC 11/14/2018 POLO, BOBAN N Ot I10 ESSENTIAL (PRIMARY) HYPERTENSION 11/14/2018 POLO BOBAN N Ot Z51.11 ENCOUNTER FOR ANTINEOPLASTIC CHEMOTHERAP 11/14/2018 POLOVANDANAAN N Ot Z79.4 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 11/14/2018 POLOVANDANAAN N Ot 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 11/14/2018 POLO BOBAN N Ot Z79.899 OTHER MCC (CURRENT) DRUG THERAPY 11/14/2018 POLO, BOBAN N Ot Z96.6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, BILAT 12/27/2018 POLO BOBAN N Ot C91.10 CHRONIC LYMPHOCYTIC LEUK OF B-CELL TYPE 12/27/2018 POLO BOBAN N Ot D64.9 ANEMIA, UNSPECIFIED 12/27/2018 POLO BOBAN N Ot E11.9 TYPE 2 DIABETES MELLITUS WITHOUT COMPLIC 12/27/2018 POLO BOBAN N Ot I10 ESSENTIAL (PRIMARY) HYPERTENSION 12/27/2018 POLO BOBAN N Ot Z51.11 ENCOUNTER FOR ANTINEOPLASTIC CHEMOTHERAP 12/27/2018 POLOCLIFF N Ot Z79.4 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 12/27/2018 POLOVANDANAAN N Ot Z79.82 MCC (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 OF ASPIRIN 12/27/2018 POLO BOBAN N Ot Z79.899 OTHER MCC (CURRENT) DRUG THERAPY 12/27/2018 POLO BOBAN N Ot Z96.6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, BILAT 01/07/2019 POLO BOBAN N Ot C91.10 CHRONIC LYMPHOCYTIC LEUK OF B-CELL TYPE 01/07/2019 POLO BOBAN N Ot D64.9 ANEMIA, UNSPECIFIED 01/07/2019 POLO, BOBAN N Ot E11.9 TYPE 2 DIABETES MELLITUS WITHOUT COMPLIC 01/07/2019 POLO, BOBAN N Ot I10 ESSENTIAL (PRIMARY) HYPERTENSION 01/07/2019 POLO BOBAN N Ot Z51.11 ENCOUNTER FOR ANTINEOPLASTIC CHEMOTHERAP 01/07/2019 POLO BOBAN N Ot Z79.4 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 01/07/2019 POLOCLIFF N Ot Z79.82 MCC (CURRENT) USE OF ASPIRIN 01/07/2019 CLIFF CUELLAR N Ot Z79.899 OTHER MCC (CURRENT) DRUG THERAPY 01/07/2019 CLIFF CUELLAR N Ot Z96.6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, BILAT 01/10/2019 POLOCLIFF N Ot C91.10 CHRONIC LYMPHOCYTIC LEUK OF B-CELL TYPE 01/10/2019 POLOCLIFF N Ot D64.9 ANEMIA, UNSPECIFIED 01/10/2019 POLOCLIFF N Ot E11.9 TYPE 2 DIABETES MELLITUS WITHOUT COMPLIC 01/10/2019 POLOCLIFF Ot I10 ESSENTIAL (PRIMARY) HYPERTENSION 01/10/2019 POLOCLIFF N Ot Z51.11 ENCOUNTER FOR ANTINEOPLASTIC CHEMOTHERAP 01/10/2019 CLIFF CUELLAR N Ot Z79.4 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 01/10/2019 POLOCLIFF N Ot 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 01/10/2019 POLO CLIFF N Ot Z79.899 OTHER MCC (CURRENT) DRUG THERAPY 01/10/2019 POLO CLIFF N Ot Z96.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, BILAT 02/21/2019 NYA ALANIZ, TR Puri Ot Z13.0 ENCNTR SCREEN FOR DIS OF THE BLD/BLD-FOR 02/21/2019 POLOCLIFF Ot D72.820 LYMPHOCYTOSIS (SYMPTOMATIC) 02/21/2019 POLOCLIFF Ot R59.1 GENERALIZED ENLARGED LYMPH NODES 02/21/2019 ALVA ALANIZ, JARRETT Chou Ot M17.0 BILATERAL PRIMARY OSTEOARTHRITIS OF KNEE 02/21/2019 ALVA ALANIZ, JARRETT Chou Ot Z96.652 PRESENCE OF LEFT ARTIFICIAL KNEE JOINT 02/21/2019 LISA PICKARD Ot C91.10 CHRONIC LYMPHOCYTIC LEUK OF B-CELL TYPE 02/21/2019 CLIFF CUELLAR N Ot C91.10 CHRONIC LYMPHOCYTIC LEUK OF B-CELL TYPE 02/21/2019 CLIFF CUELLAR N Ot C91.10 CHRONIC LYMPHOCYTIC LEUK OF B-CELL TYPE 02/21/2019 CLIFF CUELLAR Pranay Ot R59.1 GENERALIZED ENLARGED LYMPH NODES 02/21/2019 CLIFF CUELLAR Pranay Ot C91.10 CHRONIC LYMPHOCYTIC LEUK OF B-CELL TYPE 02/21/2019 CLIFF CUELLAR Pranay Ot D64.9 ANEMIA, UNSPECIFIED 02/21/2019 CLIFF CUELLAR Pranay Ot E11.9 TYPE 2 DIABETES MELLITUS WITHOUT COMPLIC 02/21/2019 CLIFF CUELLAR Pranay Ot I10 ESSENTIAL (PRIMARY) HYPERTENSION 02/21/2019 CLIFF CUELLAR Pranay Ot Z51.11 ENCOUNTER FOR ANTINEOPLASTIC CHEMOTHERAP 02/21/2019 CLIFF CUELLAR Pranay Ot Z79.4 MCC (CURRENT) USE OF INSULIN 02/21/2019 CLIFF CUELLAR Pranay Ot Z79.82 MCC (CURRENT) USE OF ASPIRIN 02/21/2019 CLIFF CUELLAR Pranay Ot Z79.899 OTHER MCC (CURRENT) DRUG THERAPY 02/21/2019 CLIFF CUELLAR Pranay Ot Z96.6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, BILAT 02/22/2019 LISA PICKARD Ot C91.10 CHRONIC LYMPHOCYTIC LEUK OF B-CELL TYPE 02/22/2019 LISA PICKARD Ot Z01.89 ENCOUNTER FOR OTHER SPECIFIED SPECIAL EX 03/04/2019 NYA ALANIZ, TR Puri Ot Z13.0 ENCNTR SCREEN FOR DIS OF THE BLD/BLD-FOR 03/04/2019 CLIFF CUELLAR Ot D72.820 LYMPHOCYTOSIS (SYMPTOMATIC) 03/04/2019 CLIFF CUELLAR Pranay Ot R59.1 GENERALIZED ENLARGED LYMPH NODES 03/04/2019 JARRETT CALLE MD Ot M17.0 BILATERAL PRIMARY OSTEOARTHRITIS OF KNEE 03/04/2019 JARRETT CALLE MD Ot Z96.652 PRESENCE OF LEFT ARTIFICIAL KNEE JOINT 03/04/2019 LISA PICKARD Ot C91.10 CHRONIC LYMPHOCYTIC LEUK OF B-CELL TYPE 03/04/2019 POLO CLIFF Pires Ot C91.10 CHRONIC LYMPHOCYTIC LEUK OF B-CELL TYPE 03/04/2019 POLO CLIFF Pires Ot C91.10 CHRONIC LYMPHOCYTIC LEUK OF B-CELL TYPE 03/04/2019 CLIFF CUELLAR Pranay Ot R59.1 GENERALIZED ENLARGED LYMPH NODES 03/04/2019 PICKARD, HILAH S SCRATCH FINISHER Ot C91.10 CHRONIC LYMPHOCYTIC LEUK OF B-CELL TYPE 03/04/2019 LISA PICKARD SCRATCH FINISHER Ot Z01.89 ENCOUNTER FOR OTHER SPECIFIED SPECIAL EX 03/04/2019 CLIFF CUELLAR Pranay Ot C91.10 CHRONIC LYMPHOCYTIC LEUK OF B-CELL TYPE 03/04/2019 CLIFF CUELLAR Pranay Ot D64.9 ANEMIA, UNSPECIFIED 03/04/2019 POLO VANDANAIZA N Ot E11.9 TYPE 2 DIABETES MELLITUS WITHOUT COMPLIC 03/04/2019 CLIFF CUELLAR N Ot I10 ESSENTIAL (PRIMARY) HYPERTENSION 03/04/2019 POLO VANDANAIZA N Ot Z51.11 ENCOUNTER FOR ANTINEOPLASTIC CHEMOTHERAP 03/04/2019 CLIFF CUELLAR N Ot Z79.4 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 03/04/2019 POLOCLIFF N Ot 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 03/04/2019 POLO VANDANAIZA N Ot Z79.899 OTHER MCC (CURRENT) DRUG THERAPY 03/04/2019 CLIFF CUELLAR N Ot Z96.6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, BILAT 03/13/2019 CLIFF CUELLAR N Ot C91.10 CHRONIC LYMPHOCYTIC LEUK OF B-CELL TYPE 03/13/2019 CLIFF CUELLAR N Ot D64.9 ANEMIA, UNSPECIFIED 03/13/2019 POLO VANDANAIZA N Ot E11.9 TYPE 2 DIABETES MELLITUS WITHOUT COMPLIC 03/13/2019 CLIFF CUELLAR N Ot I10 ESSENTIAL (PRIMARY) HYPERTENSION 03/13/2019 POLO VANDANAIZA N Ot Z51.11 ENCOUNTER FOR ANTINEOPLASTIC CHEMOTHERAP 03/13/2019 POLOCLIFF N Ot Z79.4 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 03/13/2019 POLOCLIFF N Ot Z79.82 MCC (CURRENT) USE OF ASPIRIN 03/13/2019 POLOCLIFF N Ot Z79.899 OTHER MCC (CURRENT) DRUG THERAPY 03/13/2019 POLO CLIFF N Ot Z96.6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, BILAT 03/26/2019 LISA PICKARD SCRATCH FINISHER Ot C91.10 CHRONIC LYMPHOCYTIC LEUK OF B-CELL TYPE 03/26/2019 LISA PICKARD SCRATCH FINISHER Ot Z01.89 ENCOUNTER FOR OTHER SPECIFIED SPECIAL EX 04/01/2019 CLIFF CUELLAR Ot C91.10 CHRONIC LYMPHOCYTIC LEUK OF B-CELL TYPE 04/01/2019 CLIFF CUELLAR Ot D64.9 ANEMIA, UNSPECIFIED 04/01/2019 CLIFF CUELLAR Ot E11.9 TYPE 2 DIABETES MELLITUS WITHOUT COMPLIC 04/01/2019 CLIFF CUELLAR Ot I10 ESSENTIAL (PRIMARY) HYPERTENSION 04/01/2019 CLIFF CUELLAR Pranay Ot Z51.11 ENCOUNTER FOR ANTINEOPLASTIC CHEMOTHERAP 04/01/2019 CLIFF CUELLAR Pranay Ot Z79.4 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 04/01/2019 CLIFF CUELLAR Pranay Ot 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 04/01/2019 CLIFF CUELLAR Pranay Ot Z79.899 OTHER MARKER ASSEMBLER (CURRENT) DRUG THERAPY 04/01/2019 CLIFF CUELLAR Pranay Ot Z96.6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, BILAT Procedures Code [place] [address] A1C (IN-HOUSE) 05/15/2012 87795 ROUT INE VENIPUNCTURE 05/25/2012 87892 CBC 05/25/2012 97926 CMP 05/25/2012 11557 LIPI D PANEL 05/25/2012 [id number] GF R CALC (RESULT ONLY) 05/25/2012 97784 GASTRIN 05/28/2012 75512 A1C (IN-HOUSE) 09/04/2012 30935 A1C (IN-HOUSE) 12/12/2012 21940 MICR O ALBUMIN-IN HOUSE 12/12/2012 06580 MICR OALBUMIN 12/12/2012 93314 A1C (IN-HOUSE) 04/01/2013 00685 A1C (IN-HOUSE) 07/15/2013 77285 A1C (IN-HOUSE) 11/15/2013 66622 ROUT INE VENIPUNCTURE 11/20/2013 83033 CBC 11/20/2013 [id number] GF R CALC (RESULT ONLY) 11/20/2013 36795 CMP 11/20/2013 13098 LIPI D PANEL 11/20/2013 71979 MICR O ALBUMIN-IN HOUSE 02/17/2014 55213 A1C (IN-HOUSE) 02/17/2014 68516 MICR OALBUMIN 02/17/[id number] OF L KNEE JT WITH SYNTH SUB, RICHARD 07/19/[id number] OF R KNEE JT WITH SYNTH SUB, RICHARD 09/20/2017 Results Test Result Range Methicillin resistant Staphylococcus aur eus (MRSA) screening culture - 07/12/17 10:35 Methicillin resistant Staphylococcus aureus (MRSA) scr eening culture NEG NRG Complete blood count (CBC) with automate d white blood cell (WBC) differential - 07/12/17 10:45 Blood leukocytes automated count (number/volume) 14.6 10*3/uL 4.3-11.0 Blood erythrocytes automated count (number/volume) 4.26 10*6/uL 4.35-5.85 Venous blood hemoglobin measurement (mass/volume) 12.8 g/dL 13.3-17.7 Blood hematocrit (volume fraction) 38 % 40-54 Automated erythrocyte mean corpuscular volume 89 [ foz_us] 80-99 Automated erythrocyte mean corpuscular h emoglobin (mass per erythrocyte) 30 pg 25-34 Automated erythrocyte mean corpuscular h emoglobin concentration measurement (mass/volume) 34 g/dL 32-36 Automated erythrocyte distribution width ratio 13. 2 % 10.0- 14.5 Automated blood platelet count (count/volume) 205 10*3/uL [...] 10*3 1.0-4.0 Blood monocytes automated count (number/volume) 0. 9 10*3 0.0-1.0 Automated eosinophil count 0.2 10*3/uL 0 .0-0.3 Automated blood basophil count (count/volume) 0.0 10*3/uL 0.0-0.1 PT panel in platelet poor plasma by coag ulation assay - 07/12/17 10:45 Prothrombin time (PT) in platelet poor plasma by coagu lation assay 12.1 s 12.2-14.7 INR in platelet poor plasma or blood by coagulation as say 0.9 0.8-1.4 Comprehensive metabolic panel - 07/12/17 10:45 Serum or plasma sodium measurement (moles/volume) 139 mmol/L 135-145 Serum or plasma potassium measurement (moles/volume) 4.3 mmol/L 3.6-5.0 Serum or plasma chloride measurement (moles/volume) 106 mmol/L 98-107 Carbon dioxide 24 mmol/L 21-32 Serum or plasma anion gap determination (moles/volume) 9 mmol/L 5-14 Serum or plasma urea nitrogen measurement (mass/volume ) 23 mg/dL 7-18 Serum or plasma creatinine measurement (mass/volume) 0.89 mg/dL 0.60-1.30 Serum or plasma urea nitrogen/creatinine mass ratio 26 NRG Serum or plasma creatinine measurement w ith calculation of estimated glomerular filtration rate > NRG Serum or plasma glucose measurement (mass/volume) 114 mg/dL 70-105 Serum or plasma calcium measurement (mass/volume) 9.2 mg/dL 8.5-10.1 Serum or plasma total bilirubin measurement (mass/volu me) 0.4 mg/dL 0.1-1.0 Serum or plasma alkaline phosphatase alonso surement (enzymatic activity/volume) 89 U/L 40-136 Serum or plasma aspartate aminotransfera se measurement (enzymatic activity/volume) 15 U/L 5-34 Serum or plasma alanine aminotransferase measurement (enzymatic activity/volume) 19 U/L 0-55 Serum or plasma protein measurement (mass/volume) 6.5 g/dL 6.4-8.2 Serum or plasma albumin measurement (mass/volume) 4.2 g/dL 3.2-4.5 Blood manual differential performed dete ction - 07/12/17 10:45 Blood monocytes/100 leukocytes 7 [...] identification NORMAL NRG Erythrocyte sedimentation rate by parth gren method - 07/12/17 10:45 Erythrocyte sedimentation rate by westergren method 10 mm 0- 30 Blood type T Indirect antibody screen pa ravinder - 07/12/17 10:45 ABO+Rh group OP NRG Blood group antibody screen NEGATIVE NR G Complete urinalysis with reflex to cultu re - 07/12/17 11:05 Urine color determination YELLOW NRG Urine clarity determination CLEAR NR G Urine pH measurement by test strip 6 5-9 Specific gravity of urine by test strip 1.010 1.016-1.022 Urine protein assay by test strip, semi-quantitative 2+ NEGATIVE Urine glucose detection by automated test strip 1+ NEGATIVE Erythrocytes detection in urine sediment by light micr oscopy NEGATIVE NEGATIVE Urine ketones detection by automated test strip NE GATIVE NEGATIVE Urine nitrite detection by test strip NEGATIVE NEGATIVE Urine total bilirubin detection by test strip NEGA TIVE NEGATIVE Urine urobilinogen measurement by automated test strip (mass/volume) NORMAL NORMAL Urine leukocyte esterase detection by dipstick NEG ATIVE NEGATIVE Automated urine sediment erythrocyte cou nt by microscopy (number/high power field) NONE NRG Automated urine sediment leukocyte count by microscopy (number/high power field) NONE NRG Bacteria detection in urine sediment by light microsco py NEGATIVE NRG Squamous epithelial cells detection in u rine sediment by light microscopy 0-2 NRG Crystals detection in urine sediment by light microsco py NONE NRG Casts detection in urine sediment by light microscopy NONE NRG Mucus detection in urine sediment by light microscopy NEGATIVE NRG Complete urinalysis with reflex to culture NO NRG Capillary blood glucose measurement by g lucometer (mass/volume) - 07/19/17 06:34 Capillary blood glucose measurement by glucometer (mas s/volume) 124 mg/dL 70-110 Capillary blood glucose measurement by g lucometer (mass/volume) - 07/19/17 09:33 Capillary blood glucose measurement by glucometer (mas s/volume) 157 mg/dL 70-110 Blood type T Indirect antibody screen pa [facility] - 07/19/17 09:36 ABO+Rh group OP NRG Transfusion band number [id number] NRG Blood group antibody screen NEGATIVE NR G Capillary blood glucose measurement by g lucometer (mass/volume) - 07/19/17 16:12 Capillary blood glucose measurement by glucometer (mas s/volume) 213 mg/dL 70-110 Capillary blood glucose measurement by g lucometer (mass/volume) - 07/19/17 20:19 Capillary blood glucose measurement by glucometer (mas s/volume) 214 mg/dL 70-110 Capillary blood glucose measurement by g lucometer (mass/volume) - 07/20/17 04:42 Capillary blood glucose measurement by glucometer (mas s/volume) 195 mg/dL 70-110 Whole blood hemoglobin and hematocrit esteban [facility] - 07/20/17 04:43 Venous blood hemoglobin measurement (mass/volume) 10.6 g/dL 13.3-17.7 Blood hematocrit (volume fraction) 32 % 40-54 Capillary blood glucose measurement by g lucometer (mass/volume) - 07/20/17 11:05 Capillary blood glucose measurement by glucometer (mas s/volume) 235 mg/dL 70-110 Capillary blood glucose measurement by g lucometer (mass/volume) - 07/20/17 16:31 Capillary blood glucose measurement by glucometer (mas s/volume) 169 mg/dL 70-110 Capillary blood glucose measurement by g lucometer (mass/volume) - 07/20/17 20:19 Capillary blood glucose measurement by glucometer (mas s/volume) 138 mg/dL 70-110 Whole blood hemoglobin and hematocrit esteban [facility] - 07/21/17 04:15 Venous blood hemoglobin measurement (mass/volume) 9.5 g/dL 13.3-17.7 Blood hematocrit (volume fraction) 29 % 40-54 Capillary blood glucose measurement by g lucometer (mass/volume) - 07/21/17 05:46 Capillary blood glucose measurement by glucometer (mas s/volume) 94 mg/dL 70-110 Capillary blood glucose measurement by g lucometer (mass/volume) - 07/21/17 11:20 Capillary blood glucose measurement by glucometer (mas s/volume) 88 mg/dL 70-110 Capillary blood glucose measurement by g lucometer (mass/volume) - 07/21/17 16:28 Capillary blood glucose measurement by glucometer (mas s/volume) 70 mg/dL 70-110 Capillary blood glucose measurement by g lucometer (mass/volume) - 07/21/17 20:52 Capillary blood glucose measurement by glucometer (mas s/volume) 176 mg/dL 70-110 Whole blood hemoglobin and hematocrit [facility] - 07/22/17 04:40 Venous blood hemoglobin measurement (mass/volume) 9.5 g/dL 13.3-17.7 Blood hematocrit (volume fraction) 28 % 40-54 Capillary blood glucose measurement by g lucometer (mass/volume) - 07/22/17 05:45 Capillary blood glucose measurement by glucometer (mas s/volume) 104 mg/dL 70-110 Capillary blood glucose measurement by g lucometer (mass/volume) - 07/22/17 11:05 Capillary blood glucose measurement by glucometer (mas s/volume) 141 mg/dL 70-110 PT panel in platelet poor plasma by coag ulation assay - 09/12/17 13:43 Prothrombin time (PT) in platelet poor plasma by coagu lation assay 12.4 s 12.2-14.7 INR in platelet poor plasma or blood by coagulation as say 0.9 0.8-1.4 Complete urinalysis with reflex to cultu re - 09/12/17 13:43 Urine color determination YELLOW NRG Urine clarity determination CLEAR NR G Urine pH measurement by test strip 5 5-9 Specific gravity of urine by test strip 1.015 1.016-1.022 Urine protein assay by test strip, semi-quantitative 1+ NEGATIVE Urine glucose detection by automated test strip 1+ NEGATIVE Erythrocytes detection in urine sediment by light micr oscopy NEGATIVE NEGATIVE Urine ketones detection by automated test strip NE GATIVE NEGATIVE Urine nitrite detection by test strip NEGATIVE NEGATIVE Urine total bilirubin detection by test strip NEGA TIVE NEGATIVE Urine urobilinogen measurement by automated test strip (mass/volume) NORMAL NORMAL Urine leukocyte esterase detection by dipstick NEG ATIVE NEGATIVE Automated urine sediment erythrocyte cou nt by microscopy (number/high power field) NONE NRG Automated urine sediment leukocyte count by microscopy (number/high power field) RARE NRG Bacteria detection in urine sediment by light microsco py NEGATIVE NRG Squamous epithelial cells detection in u rine sediment by light microscopy 0-2 NRG Crystals detection in urine sediment by light microsco py NONE NRG Casts detection in urine sediment by light microscopy NONE NRG Mucus detection in urine sediment by light microscopy NEGATIVE NRG Complete urinalysis with reflex to culture NO NRG Complete blood count (CBC) with automate d white blood cell (WBC) differential - 09/12/17 13:43 Blood leukocytes automated count (number/volume) 12.7 10*3/uL 4.3-11.0 Blood erythrocytes automated count (number/volume) 3.66 10*6/uL 4.35-5.85 Venous blood hemoglobin measurement (mass/volume) 11.2 g/dL 13.3-17.7 Blood hematocrit (volume fraction) 32 % 40-54 Automated erythrocyte mean corpuscular volume 88 [ foz_us] 80-99 Automated erythrocyte mean corpuscular h emoglobin (mass per erythrocyte) 31 pg 25-34 Automated erythrocyte mean corpuscular h emoglobin concentration measurement (mass/volume) 35 g/dL 32-36 Automated erythrocyte distribution width ratio 14. 2 % 10.0- 14.5 Automated blood platelet count (count/volume) 262 10*3/uL [...] 10*3 1.0-4.0 Blood monocytes automated count (number/volume) 0. 7 10*3 0.0-1.0 Automated eosinophil count 0.2 10*3/uL 0 .0-0.3 Automated blood basophil count (count/volume) 0.0 10*3/uL 0.0-0.1 Blood blood smear finding identification by light micr oscopy NRG Erythrocyte sedimentation rate by parth gren method - 09/12/17 13:43 Erythrocyte sedimentation rate by westergren method 28 mm 0- 30 Comprehensive metabolic panel - 09/12/17 13:43 Serum or plasma sodium measurement (moles/volume) 136 mmol/L 135-145 Serum or plasma potassium measurement (moles/volume) 4.2 mmol/L 3.6-5.0 Serum or plasma chloride measurement (moles/volume) 105 mmol/L 98-107 Carbon dioxide 20 mmol/L 21-32 Serum or plasma anion gap determination (moles/volume) 11 mmol/L 5-14 Serum or plasma urea nitrogen measurement (mass/volume ) 14 mg/dL 7-18 Serum or plasma creatinine measurement (mass/volume) 0.82 mg/dL 0.60-1.30 Serum or plasma urea nitrogen/creatinine mass ratio 17 NRG Serum or plasma creatinine measurement w ith calculation of estimated glomerular filtration rate > NRG Serum or plasma glucose measurement (mass/volume) 146 mg/dL 70-105 Serum or plasma calcium measurement (mass/volume) 9.2 mg/dL 8.5-10.1 Serum or plasma total bilirubin measurement (mass/volu me) 0.4 mg/dL 0.1-1.0 Serum or plasma alkaline phosphatase alonso surement (enzymatic activity/volume) 104 U/L 40-136 Serum or plasma aspartate aminotransfera se measurement (enzymatic activity/volume) 16 U/L 5-34 Serum or plasma alanine aminotransferase measurement (enzymatic activity/volume) 21 U/L 0-55 Serum or plasma protein measurement (mass/volume) 6.5 g/dL 6.4-8.2 Serum or plasma albumin measurement (mass/volume) 4.0 g/dL 3.2-4.5 Blood type T Indirect antibody screen [facility] - 09/12/17 13:43 ABO+Rh group OP NRG Blood group antibody screen NEGATIVE NR G Methicillin resistant Staphylococcus aur eus (MRSA) screening culture - 09/12/17 13:43 Methicillin resistant Staphylococcus aureus (MRSA) scr eening culture NEG NRG Blood type T Indirect antibody screen [facility] - 09/19/17 13:50 ABO+Rh group OP NRG Transfusion band number [id number] NRG Blood group antibody screen NEGATIVE NR G Blood lymphocytes count by flow cytometr y (number/volume) - 09/19/17 13:50 Pathology consultation and report [id number] [facility] Capillary blood glucose measurement by g lucometer (mass/volume) - 09/20/17 06:16 Capillary blood glucose measurement by glucometer (mas s/volume) 147 mg/dL 70-110 Capillary blood glucose measurement by g lucometer (mass/volume) - 09/20/17 15:56 Capillary blood glucose measurement by glucometer (mas s/volume) 199 mg/dL 70-110 Hemoglobin A1c - 09/20/17 19:30 Blood hemoglobin A1C measurement (mass/volume) 6.1 % 4.0-5.6 MEAN BLOOD GLUCOSE 128 % <=126 Capillary blood glucose measurement by g lucometer (mass/volume) - 09/20/17 20:49 Capillary blood glucose measurement by glucometer (mas s/volume) 194 mg/dL 70-110 Capillary blood glucose measurement by g lucometer (mass/volume) - 09/21/17 05:16 Capillary blood glucose measurement by glucometer (mas s/volume) 233 mg/dL 70-110 Whole blood hemoglobin and hematocrit pa ravinder - 09/21/17 05:58 Venous blood hemoglobin measurement [...] 5-14 Serum or plasma urea nitrogen measurement (mass/volume ) 13 mg/dL 7-18 Serum or plasma creatinine measurement (mass/volume) 0.77 mg/dL 0.60-1.30 Serum or plasma urea nitrogen/creatinine mass ratio 17 NRG Serum or plasma creatinine measurement w ith calculation of estimated glomerular filtration rate > NRG Serum or plasma glucose measurement (mass/volume) 204 mg/dL 70-105 Serum or plasma calcium measurement (mass/volume) 8.6 mg/dL 8.5-10.1 Serum or plasma total bilirubin measurement (mass/volu me) 0.7 mg/dL 0.1-1.0 Serum or plasma alkaline phosphatase alonso surement (enzymatic activity/volume) 94 U/L 40-136 Serum or plasma aspartate aminotransfera se measurement (enzymatic activity/volume) 14 U/L 5-34 Serum or plasma alanine aminotransferase measurement (enzymatic activity/volume) 17 U/L 0-55 Serum or plasma protein measurement (mass/volume) 5.9 g/dL 6.4-8.2 Serum or plasma albumin measurement (mass/volume) 3.6 g/dL 3.2-4.5 Capillary blood glucose measurement by g lucometer (mass/volume) - 09/21/17 10:53 Capillary blood glucose measurement by glucometer (mas s/volume) 257 mg/dL 70-110 Capillary blood glucose measurement by g lucometer (mass/volume) - 09/21/17 16:28 Capillary blood glucose measurement by glucometer (mas s/volume) 198 mg/dL 70-110 Capillary blood glucose measurement by g lucometer (mass/volume) - 09/21/17 20:56 Capillary blood glucose measurement by glucometer (mas s/volume) 234 mg/dL 70-110 Capillary blood glucose measurement by g lucometer (mass/volume) - 09/22/17 05:25 Capillary blood glucose measurement by glucometer (mas s/volume) 175 mg/dL 70-110 Whole blood hemoglobin and hematocrit pa ravinder - 09/22/17 05:53 Venous blood hemoglobin measurement (mass/volume) 8.9 g/dL 13.3-17.7 Blood hematocrit (volume fraction) 26 % 40-54 Capillary blood glucose measurement by g lucometer (mass/volume) - 09/22/17 11:03 Capillary blood glucose measurement by glucometer (mas s/volume) 217 mg/dL 70-110 Capillary blood glucose measurement by g lucometer (mass/volume) - 09/22/17 16:04 Capillary blood glucose measurement by glucometer (mas s/volume) 168 mg/dL 70-110 Capillary blood glucose measurement by g lucometer (mass/volume) - 09/22/17 20:58 Capillary blood glucose measurement by glucometer (mas s/volume) 256 mg/dL 70-110 Capillary blood glucose measurement by g lucometer (mass/volume) - 09/23/17 05:08 Capillary blood glucose measurement by glucometer (mas s/volume) 174 mg/dL 70-110 Complete blood count (CBC) with automate d white blood cell (WBC) differential - 09/23/17 05:40 Blood leukocytes automated count (number/volume) 9.7 10*3/uL 4.3-11.0 Blood erythrocytes automated count (number/volume) 2.77 10*6/uL 4.35-5.85 Venous blood hemoglobin measurement (mass/volume) 8.5 g/dL 13.3-17.7 Blood hematocrit (volume fraction) 25 % 40-54 Automated erythrocyte mean corpuscular volume 90 [ foz_us] 80-99 Automated erythrocyte mean corpuscular h emoglobin (mass per erythrocyte) 31 pg 25-34 Automated erythrocyte mean corpuscular h emoglobin concentration measurement (mass/volume) 34 g/dL 32-36 Automated erythrocyte distribution width ratio 14. 2 % 10.0- 14.5 Automated blood platelet count (count/volume) 221 10*3/uL [...] 10*3 1.0-4.0 Blood monocytes automated count (number/volume) 0. 6 10*3 0.0-1.0 Automated eosinophil count 0.1 10*3/uL 0 .0-0.3 Automated blood basophil count (count/volume) 0.0 10*3/uL 0.0-0.1 Whole blood basic metabolic panel - 09/04 03/23 05:40 Serum or plasma sodium measurement (moles/volume) 132 mmol/L 135-145 Serum or plasma potassium measurement (moles/volume) 3.5 mmol/L 3.6-5.0 Serum or plasma chloride measurement (moles/volume) 100 mmol/L 98-107 Carbon dioxide 23 mmol/L 21-32 Serum or plasma anion gap determination (moles/volume) 9 mmol/L 5-14 Serum or plasma urea nitrogen measurement (mass/volume ) 17 mg/dL 7-18 Serum or plasma creatinine measurement (mass/volume) 0.72 mg/dL 0.60-1.30 Serum or plasma urea nitrogen/creatinine mass ratio 24 NRG Serum or plasma creatinine measurement w ith calculation of estimated glomerular filtration rate > NRG Serum or plasma glucose measurement (mass/volume) 154 mg/dL 70-105 Serum or plasma calcium measurement (mass/volume) 8.7 mg/dL 8.5-10.1 * Reference lab test name - 12/18/17 11: 30 * Reference lab test results B CELL CLL BONE MAR NRG Methicillin resistant Staphylococcus aur eus (MRSA) screening culture - 04/18/18 08:05 Methicillin resistant Staphylococcus aureus (MRSA) scr eening culture NEG NRG Capillary blood glucose measurement by g lucometer (mass/volume) - 04/18/18 08:18 Capillary blood glucose measurement by glucometer (mas s/volume) 149 mg/dL 70-110 Gram stain microscopy - 04/29/18 15:00 Gram stain microscopy No bacteria seen NRG Bacteria identification in wound by cult ure - 04/29/18 15:00 Bacteria identification in wound by culture NSF NRG FREE TEXT EXTERNAL NO SUSCEPTIBILITIES SET UP NRG QUANTITY OF GROWTH Isolated NRG Capillary blood glucose measurement by g lucometer (mass/volume) - 05/16/18 07:29 Capillary blood glucose measurement by glucometer (mas s/volume) 164 mg/dL 70-110 Methicillin resistant Staphylococcus aur eus (MRSA) screening culture - 05/16/18 07:50 Methicillin resistant Staphylococcus aureus (MRSA) scr eening culture NEG NRG Complete blood count (CBC) with automate d white blood cell (WBC) differential - 05/22/18 15:30 Blood leukocytes automated count (number/volume) 3.5 10*3/uL 4.3-11.0 Blood erythrocytes automated count (number/volume) 3.94 10*6/uL 4.35-5.85 Venous blood hemoglobin measurement (mass/volume) 11.4 g/dL 13.3-17.7 Blood hematocrit (volume fraction) 34 % 40-54 Automated erythrocyte mean corpuscular volume 87 [ foz_us] 80-99 Automated erythrocyte mean corpuscular h emoglobin (mass per erythrocyte) 29 pg 25-34 Automated erythrocyte mean corpuscular h emoglobin concentration measurement (mass/volume) 33 g/dL 32-36 Automated erythrocyte distribution width ratio 13. 7 % 10.0- 14.5 Automated blood platelet count (count/volume) 173 10*3/uL 130-400 Automated blood platelet mean volume measurement 10.0 [foz_us] 7.4-10.4 Automated blood neutrophils/100 leukocytes 25 % 42-75 Automated blood lymphocytes/100 leukocytes 68 % 12-44 Blood monocytes/100 leukocytes 7 % 0-12 Automated blood eosinophils/100 leukocytes 0 % 0-10 Automated blood basophils/100 leukocytes 0 % 0-10 Blood neutrophils automated count (number/volume) 0.9 10*3 1.8-7.8 Blood lymphocytes automated count (number/volume) 2.4 10*3 1.0-4.0 Blood monocytes automated count (number/volume) 0. 2 10*3 0.0-1.0 Automated eosinophil count 0.0 10*3/uL 0 .0-0.3 Automated blood basophil count (count/volume) 0.0 10*3/uL 0.0-0.1 Blood lactic acid measurement (moles/vol ume) - 05/22/18 15:30 Blood lactic acid measurement (moles/volume) 1.71 mmol/L 0.50-2.00 Comprehensive metabolic panel - 05/22/18 15:30 Serum or plasma sodium measurement (moles/volume) 130 mmol/L 135-145 Serum or plasma potassium measurement (moles/volume) 4.0 mmol/L 3.6-5.0 Serum or plasma chloride measurement (moles/volume) 96 mmol/L 98-107 Carbon dioxide 23 mmol/L 21-32 Serum or plasma anion gap determination (moles/volume) 11 mmol/L 5-14 Serum or plasma urea nitrogen measurement (mass/volume ) 17 mg/dL 7-18 Serum or plasma creatinine measurement (mass/volume) 1.08 mg/dL 0.60-1.30 Serum or plasma urea nitrogen/creatinine mass ratio 16 NRG Serum or plasma creatinine measurement w ith calculation of estimated glomerular filtration rate > NRG Serum or plasma glucose measurement (mass/volume) 52 mg/dL 70-105 Serum or plasma calcium measurement (mass/volume) 8.7 mg/dL 8.5-10.1 Serum or plasma total bilirubin measurement (mass/volu me) 0.4 mg/dL 0.1-1.0 Serum or plasma alkaline phosphatase alonso surement (enzymatic activity/volume) 82 U/L 40-136 Serum or plasma aspartate aminotransfera se measurement (enzymatic activity/volume) 36 U/L 5-34 Serum or plasma alanine aminotransferase measurement (enzymatic activity/volume) 22 U/L 0-55 Serum or plasma protein measurement (mass/volume) 6.7 g/dL 6.4-8.2 Serum or plasma albumin measurement (mass/volume) 4.1 g/dL 3.2-4.5 CALCIUM CORRECTED 8.6 mg/dL 8.5-10.1 Serum or plasma troponin i.cardiac measu rement (mass/volume) - 05/22/18 15:30 Serum or plasma troponin i.cardiac measurement (mass/v olume) < ng/mL <0.028 PT panel in platelet poor plasma by coag ulation assay - 05/22/18 15:30 Prothrombin time (PT) in platelet poor plasma by coagu lation assay 13.5 s 12.2-14.7 INR in platelet poor plasma or blood by coagulation as say 1.0 0.8-1.4 Activated partial thromboplastin time (a PTT) in platelet poor plasma bycoagulation assay - 05/22/18 15:30 Activated partial thromboplastin time (a PTT) in platelet poor plasma bycoagulation assay 37 s 24-35 Bacterial blood culture - 05/22/18 15:30 Bacterial blood culture NG NRG Capillary blood glucose measurement by g lucometer (mass/volume) - 05/22/18 15:33 Capillary blood glucose measurement by glucometer (mas s/volume) 80 mg/dL 70-110 Bacterial blood culture - 05/22/18 16:00 Bacterial blood culture NG NRG Capillary blood glucose measurement by g lucometer (mass/volume) - 05/22/18 21:04 Capillary blood glucose measurement by glucometer (mas s/volume) 150 mg/dL 70-110 Capillary blood glucose measurement by g lucometer (mass/volume) - 05/23/18 05:16 Capillary blood glucose measurement by glucometer (mas s/volume) 313 mg/dL 70-110 Complete blood count (CBC) with automate d white blood cell (WBC) differential - 05/23/18 07:00 Blood leukocytes automated count (number/volume) 1.9 10*3/uL 4.3-11.0 Blood erythrocytes automated count (number/volume) 3.69 10*6/uL 4.35-5.85 Venous blood hemoglobin measurement (mass/volume) 10.9 g/dL 13.3-17.7 Blood hematocrit (volume fraction) 32 % 40-54 Automated erythrocyte mean corpuscular volume 86 [ foz_us] 80-99 Automated erythrocyte mean corpuscular h emoglobin (mass per erythrocyte) 30 pg 25-34 Automated erythrocyte mean corpuscular h emoglobin concentration measurement (mass/volume) 35 g/dL 32-36 Automated erythrocyte distribution width ratio 14. 0 % 10.0- 14.5 Automated blood platelet count (count/volume) 136 10*3/uL 130-400 Automated blood platelet mean volume measurement 10.1 [foz_us] 7.4-10.4 Automated blood neutrophils/100 leukocytes 29 % 42-75 Automated blood lymphocytes/100 leukocytes 64 % 12-44 Blood monocytes/100 leukocytes 7 % 0-12 Automated blood eosinophils/100 leukocytes 0 % 0-10 Automated blood basophils/100 leukocytes 0 % 0-10 Blood neutrophils automated count (number/volume) 0.5 10*3 1.8-7.8 Blood lymphocytes automated count (number/volume) 1.2 10*3 1.0-4.0 Blood monocytes automated count (number/volume) 0. 1 10*3 0.0-1.0 Automated eosinophil count 0.0 10*3/uL 0 .0-0.3 Automated blood basophil count (count/volume) 0.0 10*3/uL 0.0-0.1 Comprehensive metabolic panel - 05/23/18 07:00 Serum or plasma sodium measurement (moles/volume) 128 mmol/L 135-145 Serum or plasma potassium measurement (moles/volume) 4.7 mmol/L 3.6-5.0 Serum or plasma chloride measurement (moles/volume) 99 mmol/L 98-107 Carbon dioxide 19 mmol/L 21-32 Serum or plasma anion gap determination (moles/volume) 10 mmol/L 5-14 Serum or plasma urea nitrogen measurement (mass/volume ) 21 mg/dL 7-18 Serum or plasma creatinine measurement (mass/volume) 0.94 mg/dL 0.60-1.30 Serum or plasma urea nitrogen/creatinine mass ratio 22 NRG Serum or plasma creatinine measurement w ith calculation of estimated glomerular filtration rate > NRG Serum or plasma glucose measurement (mass/volume) 287 mg/dL 70-105 Serum or plasma calcium measurement (mass/volume) 8.3 mg/dL 8.5-10.1 Serum or plasma total bilirubin measurement (mass/volu me) 0.4 mg/dL 0.1-1.0 Serum or plasma alkaline phosphatase alonso surement (enzymatic activity/volume) 72 U/L 40-136 Serum or plasma aspartate aminotransfera se measurement (enzymatic activity/volume) 29 U/L 5-34 Serum or plasma alanine aminotransferase measurement (enzymatic activity/volume) 20 U/L 0-55 Serum or plasma protein measurement (mass/volume) 6.0 g/dL 6.4-8.2 Serum or plasma albumin measurement (mass/volume) 3.6 g/dL 3.2-4.5 CALCIUM CORRECTED 8.6 mg/dL 8.5-10.1 Capillary blood glucose measurement by g lucometer (mass/volume) - 05/23/18 11:07 Capillary blood glucose measurement by glucometer (mas s/volume) 364 mg/dL 70-110 Capillary blood glucose measurement by g lucometer (mass/volume) - 05/23/18 15:23 Capillary blood glucose measurement by glucometer (mas s/volume) 404 mg/dL 70-110 Capillary blood glucose measurement by g lucometer (mass/volume) - 05/23/18 19:17 Capillary blood glucose measurement by glucometer (mas s/volume) 350 mg/dL 70-110 Capillary blood glucose measurement by g lucometer (mass/volume) - 05/23/18 20:23 Capillary blood glucose measurement by glucometer (mas s/volume) 417 mg/dL 70-110 Complete blood count (CBC) with automate d white blood cell (WBC) differential - 05/24/18 04:15 Blood leukocytes automated count (number/volume) 3.5 10*3/uL 4.3-11.0 Blood erythrocytes automated count (number/volume) 3.80 10*6/uL 4.35-5.85 Venous blood hemoglobin measurement (mass/volume) 10.9 g/dL 13.3-17.7 Blood hematocrit (volume fraction) 33 % 40-54 Automated erythrocyte mean corpuscular volume 86 [ foz_us] 80-99 Automated erythrocyte mean corpuscular h emoglobin (mass per erythrocyte) 29 pg 25-34 Automated erythrocyte mean corpuscular h emoglobin concentration measurement (mass/volume) 33 g/dL 32-36 Automated erythrocyte distribution width ratio 13. 8 % 10.0- 14.5 Automated blood platelet count (count/volume) 157 10*3/uL 130-400 Automated blood platelet mean volume measurement 10.6 [foz_us] 7.4-10.4 Automated blood neutrophils/100 leukocytes 44 % 42-75 Automated blood lymphocytes/100 leukocytes 52 % 12-44 Blood monocytes/100 leukocytes 4 % 0-12 Automated blood eosinophils/100 leukocytes 0 % 0-10 Automated blood basophils/100 leukocytes 0 % 0-10 Blood neutrophils automated count (number/volume) 1.5 10*3 1.8-7.8 Blood lymphocytes automated count (number/volume) 1.8 10*3 1.0-4.0 Blood monocytes automated count (number/volume) 0. 1 10*3 0.0-1.0 Automated eosinophil count 0.0 10*3/uL 0 .0-0.3 Automated blood basophil count (count/volume) 0.0 10*3/uL 0.0-0.1 Whole blood basic metabolic panel - 05/05 03/24 04:15 Serum or plasma sodium measurement (moles/volume) 131 mmol/L 135-145 Serum or plasma potassium measurement (moles/volume) 4.5 mmol/L 3.6-5.0 Serum or plasma chloride measurement (moles/volume) 102 mmol/L 98-107 Carbon dioxide 17 mmol/L 21-32 Serum or plasma anion gap determination (moles/volume) 12 mmol/L 5-14 Serum or plasma urea nitrogen measurement (mass/volume ) 28 mg/dL 7-18 Serum or plasma creatinine measurement (mass/volume) 0.98 mg/dL 0.60-1.30 Serum or plasma urea nitrogen/creatinine mass ratio 29 NRG Serum or plasma creatinine measurement w ith calculation of estimated glomerular filtration rate > NRG Serum or plasma glucose measurement (mass/volume) 348 mg/dL 70-105 Serum or plasma calcium measurement (mass/volume) 8.4 mg/dL 8.5-10.1 Hemoglobin A1c - 05/24/18 04:15 Blood hemoglobin A1C measurement (mass/volume) 6.9 % 4.0-5.6 MEAN BLOOD GLUCOSE 151 % <=126 Capillary blood glucose measurement by g lucometer (mass/volume) - 05/24/18 06:07 Capillary blood glucose measurement by glucometer (mas s/volume) 325 mg/dL 70-110 Capillary blood glucose measurement by g lucometer (mass/volume) - 05/24/18 12:09 Capillary blood glucose measurement by glucometer (mas s/volume) 405 mg/dL 70-110 Complete blood count (CBC) with automate d white blood cell (WBC) differential - 09/10/18 09:09 Blood leukocytes automated count (number/volume) 4.3 10*3/uL 4.3-11.0 Blood erythrocytes automated count (number/volume) 3.61 10*6/uL 4.35-5.85 Venous blood hemoglobin measurement (mass/volume) 11.0 g/dL 13.3-17.7 Blood hematocrit (volume fraction) 33 % 40-54 Automated erythrocyte mean corpuscular volume 91 [ foz_us] 80-99 Automated erythrocyte mean corpuscular h emoglobin (mass per erythrocyte) 30 pg 25-34 Automated erythrocyte mean corpuscular h emoglobin concentration measurement (mass/volume) 34 g/dL 32-36 Automated erythrocyte distribution width ratio 15. 5 % 10.0- 14.5 Automated blood platelet count (count/volume) 204 10*3/uL 130-400 Automated blood platelet mean volume measurement 9.5 [foz_us] 7.4-10.4 Automated blood neutrophils/100 leukocytes 39 % 42-75 Automated blood lymphocytes/100 leukocytes 48 % 12-44 Blood monocytes/100 leukocytes 10 % 0-12 Automated blood eosinophils/100 leukocytes 2 % 0-10 Automated blood basophils/100 leukocytes 1 % 0-10 Blood neutrophils automated count (number/volume) 1.7 10*3 1.8-7.8 Blood lymphocytes automated count (number/volume) 2.1 10*3 1.0-4.0 Blood monocytes automated count (number/volume) 0. 4 10*3 0.0-1.0 Automated eosinophil count 0.1 10*3/uL 0 .0-0.3 Automated blood basophil count (count/volume) 0.0 10*3/uL 0.0-0.1 Comprehensive metabolic panel - 09/10/18 09:09 Serum or plasma sodium measurement (moles/volume) 135 mmol/L 135-145 Serum or plasma potassium measurement (moles/volume) 3.9 mmol/L 3.6-5.0 Serum or plasma chloride measurement (moles/volume) 102 mmol/L 98-107 Carbon dioxide 25 mmol/L 21-32 Serum or plasma anion gap determination (moles/volume) 8 mmol/L 5-14 Serum or plasma urea nitrogen measurement (mass/volume ) 16 mg/dL 7-18 Serum or plasma creatinine measurement (mass/volume) 0.84 mg/dL 0.60-1.30 Serum or plasma urea nitrogen/creatinine mass ratio 19 NRG Serum or plasma creatinine measurement w ith calculation of estimated glomerular filtration rate > NRG Serum or plasma glucose measurement (mass/volume) 133 mg/dL 70-105 Serum or plasma calcium measurement (mass/volume) 9.1 mg/dL 8.5-10.1 Serum or plasma total bilirubin measurement (mass/volu me) 0.4 mg/dL 0.1-1.0 Serum or plasma alkaline phosphatase alonso surement (enzymatic activity/volume) 89 U/L 40-136 Serum or plasma aspartate aminotransfera se measurement (enzymatic activity/volume) 18 U/L 5-34 Serum or plasma alanine aminotransferase measurement (enzymatic activity/volume) 17 U/L 0-55 Serum or plasma protein measurement (mass/volume) 6.2 g/dL 6.4-8.2 Serum or plasma albumin measurement (mass/volume) 4.1 g/dL 3.2-4.5 CALCIUM CORRECTED 9.0 mg/dL 8.5-10.1 Serum ragweed IgE antibody assay - 09/10 09:09 Serum ragweed IgE antibody assay 271 U/L 125-220 Complete blood count (CBC) with automate d white blood cell (WBC) differential - 09/17/18 08:10 Blood leukocytes automated count (number/volume) 1.2 10*3/uL 4.3-11.0 Blood erythrocytes automated count (number/volume) 3.59 10*6/uL 4.35-5.85 Venous blood hemoglobin measurement (mass/volume) 11.1 g/dL 13.3-17.7 Blood hematocrit (volume fraction) 33 % 40-54 Automated erythrocyte mean corpuscular volume 91 [ foz_us] 80-99 Automated erythrocyte mean corpuscular h emoglobin (mass per erythrocyte) 31 pg 25-34 Automated erythrocyte mean corpuscular h emoglobin concentration measurement (mass/volume) 34 g/dL 32-36 Automated erythrocyte distribution width ratio 14. 9 % 10.0- 14.5 Automated blood platelet count (count/volume) 149 10*3/uL 130-400 Automated blood platelet mean volume measurement 9.6 [foz_us] 7.4-10.4 Automated blood neutrophils/100 leukocytes 31 % 42-75 Automated blood lymphocytes/100 leukocytes 57 % 12-44 Blood monocytes/100 leukocytes 6 % 0-12 Automated blood eosinophils/100 leukocytes 7 % 0-10 Automated blood basophils/100 leukocytes 0 % 0-10 Blood neutrophils automated count (number/volume) 0.4 10*3 1.8-7.8 Blood lymphocytes automated count (number/volume) 0.7 10*3 1.0-4.0 Blood monocytes automated count (number/volume) 0. 1 10*3 0.0-1.0 Automated eosinophil count 0.1 10*3/uL 0 .0-0.3 Automated blood basophil count (count/volume) 0.0 10*3/uL 0.0-0.1 Whole blood basic metabolic panel - 09/03 07/22 08:10 Serum or plasma sodium measurement (moles/volume) 134 mmol/L 135-145 Serum or plasma potassium measurement (moles/volume) 4.2 mmol/L 3.6-5.0 Serum or plasma chloride measurement (moles/volume) 101 mmol/L 98-107 Carbon dioxide 22 mmol/L 21-32 Serum or plasma anion gap determination (moles/volume) 11 mmol/L 5-14 Serum or plasma urea nitrogen measurement (mass/volume ) 19 mg/dL 7-18 Serum or plasma creatinine measurement (mass/volume) 0.79 mg/dL 0.60-1.30 Serum or plasma urea nitrogen/creatinine mass ratio 24 NRG Serum or plasma creatinine measurement w ith calculation of estimated glomerular filtration rate > NRG Serum or plasma glucose measurement (mass/volume) 182 mg/dL 70-105 Serum or plasma calcium measurement (mass/volume) 9.2 mg/dL 8.5-10.1 Complete blood count (CBC) with automate d white blood cell (WBC) differential - 09/24/18 08:08 Blood leukocytes automated count (number/volume) 3.5 10*3/uL 4.3-11.0 Blood erythrocytes automated count (number/volume) 3.34 10*6/uL 4.35-5.85 Venous blood hemoglobin measurement (mass/volume) 10.5 g/dL 13.3-17.7 Blood hematocrit (volume fraction) 31 % 40-54 Automated erythrocyte mean corpuscular volume 93 [ foz_us] 80-99 Automated erythrocyte mean corpuscular h emoglobin (mass per erythrocyte) 31 pg 25-34 Automated erythrocyte mean corpuscular h emoglobin concentration measurement (mass/volume) 34 g/dL 32-36 Automated erythrocyte distribution width ratio 15. 7 % 10.0- 14.5 Automated blood platelet count (count/volume) 161 10*3/uL 130-400 Automated blood platelet mean volume measurement 9.7 [foz_us] 7.4-10.4 Automated blood neutrophils/100 leukocytes 75 % 42-75 Automated blood lymphocytes/100 leukocytes 19 % 12-44 Blood monocytes/100 leukocytes 3 % 0-12 Automated blood eosinophils/100 leukocytes 3 % 0-10 Automated blood basophils/100 leukocytes 1 % 0-10 Blood neutrophils automated count (number/volume) 2.6 10*3 1.8-7.8 Blood lymphocytes automated count (number/volume) 0.7 10*3 1.0-4.0 Blood monocytes automated count (number/volume) 0. 1 10*3 0.0-1.0 Automated eosinophil count 0.1 10*3/uL 0 .0-0.3 Automated blood basophil count (count/volume) 0.0 10*3/uL 0.0-0.1 Whole blood basic metabolic panel - 09/04 04/24 08:08 Serum or plasma sodium measurement (moles/volume) 136 mmol/L 135-145 Serum or plasma potassium measurement (moles/volume) 4.1 mmol/L 3.6-5.0 Serum or plasma chloride measurement (moles/volume) 103 mmol/L 98-107 Carbon dioxide 22 mmol/L 21-32 Serum or plasma anion gap determination (moles/volume) 11 mmol/L 5-14 Serum or plasma urea nitrogen measurement (mass/volume ) 21 mg/dL 7-18 Serum or plasma creatinine measurement (mass/volume) 0.93 mg/dL 0.60-1.30 Serum or plasma urea nitrogen/creatinine mass ratio 23 NRG Serum or plasma creatinine measurement w ith calculation of estimated glomerular filtration rate > NRG Serum or plasma glucose measurement (mass/volume) 176 mg/dL 70-105 Serum or plasma calcium measurement (mass/volume) 9.1 mg/dL 8.5-10.1 Complete blood count (CBC) with automate d white blood cell (WBC) differential - 10/01/18 08:15 Blood leukocytes automated count (number/volume) 2.9 10*3/uL 4.3-11.0 Blood erythrocytes automated count (number/volume) 3.29 10*6/uL 4.35-5.85 Venous blood hemoglobin measurement (mass/volume) 10.4 g/dL 13.3-17.7 Blood hematocrit (volume fraction) 31 % 40-54 Automated erythrocyte mean corpuscular volume 93 [ foz_us] 80-99 Automated erythrocyte mean corpuscular h emoglobin (mass per erythrocyte) 32 pg 25-34 Automated erythrocyte mean corpuscular h emoglobin concentration measurement (mass/volume) 34 g/dL 32-36 Automated erythrocyte distribution width ratio 15. 3 % 10.0- 14.5 Automated blood platelet count (count/volume) 210 10*3/uL 130-400 Automated blood platelet mean volume measurement 9.1 [foz_us] 7.4-10.4 Automated blood neutrophils/100 leukocytes 61 % 42-75 Automated blood lymphocytes/100 leukocytes 27 % 12-44 Blood monocytes/100 leukocytes 7 % 0-12 Automated blood eosinophils/100 leukocytes 5 % 0-10 Automated blood basophils/100 leukocytes 1 % 0-10 Blood neutrophils automated count (number/volume) 1.8 10*3 1.8-7.8 Blood lymphocytes automated count (number/volume) 0.8 10*3 1.0-4.0 Blood monocytes automated count (number/volume) 0. 2 10*3 0.0-1.0 Automated eosinophil count 0.1 10*3/uL 0 .0-0.3 Automated blood basophil count (count/volume) 0.0 10*3/uL 0.0-0.1 Whole blood basic metabolic panel - 09/04 11/22 08:15 Serum or plasma sodium measurement (moles/volume) 139 mmol/L 135-145 Serum or plasma potassium measurement (moles/volume) 3.9 mmol/L 3.6-5.0 Serum or plasma chloride measurement (moles/volume) 107 mmol/L 98-107 Carbon dioxide 20 mmol/L 21-32 Serum or plasma anion gap determination (moles/volume) 12 mmol/L 5-14 Serum or plasma urea nitrogen measurement (mass/volume ) 20 mg/dL 7-18 Serum or plasma creatinine measurement (mass/volume) 0.88 mg/dL 0.60-1.30 Serum or plasma urea nitrogen/creatinine mass ratio 23 NRG Serum or plasma creatinine measurement w ith calculation of estimated glomerular filtration rate > NRG Serum or plasma glucose measurement (mass/volume) 129 mg/dL 70-105 Serum or plasma calcium measurement (mass/volume) 9.1 mg/dL 8.5-10.1 Complete blood count (CBC) with automate d white blood cell (WBC) differential - 10/09/18 09:22 Blood leukocytes automated count (number/volume) 2.6 10*3/uL 4.3-11.0 Blood erythrocytes automated count (number/volume) 3.36 10*6/uL 4.35-5.85 Venous blood hemoglobin measurement (mass/volume) 10.6 g/dL 13.3-17.7 Blood hematocrit (volume fraction) 31 % 40-54 Automated erythrocyte mean corpuscular volume 92 [ foz_us] 80-99 Automated erythrocyte mean corpuscular h emoglobin (mass per erythrocyte) 32 pg 25-34 Automated erythrocyte mean corpuscular h emoglobin concentration measurement (mass/volume) 34 g/dL 32-36 Automated erythrocyte distribution width ratio 14. 6 % 10.0- 14.5 Automated blood platelet count (count/volume) 177 10*3/uL 130-400 Automated blood platelet mean volume measurement 9.4 [foz_us] 7.4-10.4 Automated blood neutrophils/100 leukocytes 55 % 42-75 Automated blood lymphocytes/100 leukocytes 30 % 12-44 Blood monocytes/100 leukocytes 9 % 0-12 Automated blood eosinophils/100 leukocytes 5 % 0-10 Automated blood basophils/100 leukocytes 1 % 0-10 Blood neutrophils automated count (number/volume) 1.4 10*3 1.8-7.8 Blood lymphocytes automated count (number/volume) 0.8 10*3 1.0-4.0 Blood monocytes automated count (number/volume) 0. 2 10*3 0.0-1.0 Automated eosinophil count 0.1 10*3/uL 0 .0-0.3 Automated blood basophil count (count/volume) 0.0 10*3/uL 0.0-0.1 Comprehensive metabolic panel - 10/09/18 09:22 Serum or plasma sodium measurement (moles/volume) 139 mmol/L 135-145 Serum or plasma potassium measurement (moles/volume) 3.8 mmol/L 3.6-5.0 Serum or plasma chloride measurement (moles/volume) 105 mmol/L 98-107 Carbon dioxide 23 mmol/L 21-32 Serum or plasma anion gap determination (moles/volume) 11 mmol/L 5-14 Serum or plasma urea nitrogen measurement (mass/volume ) 20 mg/dL 7-18 Serum or plasma creatinine measurement (mass/volume) 0.86 mg/dL 0.60-1.30 Serum or plasma urea nitrogen/creatinine mass ratio 23 NRG Serum or plasma creatinine measurement w ith calculation of estimated glomerular filtration rate > NRG Serum or plasma glucose measurement (mass/volume) 116 mg/dL 70-105 Serum or plasma calcium measurement (mass/volume) 9.2 mg/dL 8.5-10.1 Serum or plasma total bilirubin measurement (mass/volu me) 0.5 mg/dL 0.1-1.0 Serum or plasma alkaline phosphatase alonso surement (enzymatic activity/volume) 100 U/L 40-136 Serum or plasma aspartate aminotransfera se measurement (enzymatic activity/volume) 18 U/L 5-34 Serum or plasma alanine aminotransferase measurement (enzymatic activity/volume) 18 U/L 0-55 Serum or plasma protein measurement (mass/volume) 6.2 g/dL 6.4-8.2 Serum or plasma albumin measurement (mass/volume) 4.1 g/dL 3.2-4.5 CALCIUM CORRECTED 9.1 mg/dL 8.5-10.1 Serum ragweed IgE antibody assay - 10/09 09:22 Serum ragweed IgE antibody assay 277 U/L 125-220 Bacteria identification in wound by cult ure - 05/18/19 17:20 Bacteria identification in wound by culture [id number] NRG QUANTITY OF GROWTH Moderate Growth NRG FREE TEXT ENTRY 2 SCREEN RESULTS TO FOLLOW NRG FREE TEXT ENTRY 3 PRELIM RAPID ID AT [facility] 05/18 08:3 0 NRG Complete blood count (CBC) with automate d white blood cell (WBC) differential - 05/18/19 17:25 Blood leukocytes automated count (number/volume) 3.5 10*3/uL 4.3-11.0 Blood erythrocytes automated count (number/volume) 3.44 10*6/uL 4.35-5.85 Venous blood hemoglobin measurement (mass/volume) 10.9 g/dL 13.3-17.7 Blood hematocrit (volume fraction) 32 % 40-54 Automated erythrocyte mean corpuscular volume 93 [ foz_us] 80-99 Automated erythrocyte mean corpuscular h emoglobin (mass per erythrocyte) 32 pg 25-34 Automated erythrocyte mean corpuscular h emoglobin concentration measurement (mass/volume) 34 g/dL 32-36 Automated erythrocyte distribution width ratio 13. 4 % 10.0- 14.5 Automated blood platelet count (count/volume) 256 10*3/uL 130-400 Automated blood platelet mean volume measurement 9.6 [foz_us] 7.4-10.4 Automated blood neutrophils/100 leukocytes 59 % 42-75 Automated blood lymphocytes/100 leukocytes 32 % 12-44 Blood monocytes/100 leukocytes 6 % 0-12 Automated blood eosinophils/100 leukocytes 3 % 0-10 Automated blood basophils/100 leukocytes 0 % 0-10 Blood neutrophils automated count (number/volume) 2.1 10*3 1.8-7.8 Blood lymphocytes automated count (number/volume) 1.1 10*3 1.0-4.0 Blood monocytes automated count (number/volume) 0. 2 10*3 0.0-1.0 Automated eosinophil count 0.1 10*3/uL 0 .0-0.3 Automated blood basophil count (count/volume) 0.0 10*3/uL 0.0-0.1 Blood blood smear finding identification by light micr oscopy N NRG Blood lactic acid measurement (moles/vol ume) - 05/18/19 17:25 Blood lactic acid measurement (moles/volume) 1.51 mmol/L 0.50-2.00 Comprehensive metabolic panel - 05/18/19 17:25 Serum or plasma sodium measurement (moles/volume) 140 mmol/L 135-145 Serum or plasma potassium measurement (moles/volume) 4.1 mmol/L 3.6-5.0 Serum or plasma chloride measurement (moles/volume) 104 mmol/L 98-107 Carbon dioxide 25 mmol/L 21-32 Serum or plasma anion gap determination (moles/volume) 11 mmol/L 5-14 Serum or plasma urea nitrogen measurement (mass/volume ) 17 mg/dL 7-18 Serum or plasma creatinine measurement (mass/volume) 0.90 mg/dL 0.60-1.30 Serum or plasma urea nitrogen/creatinine mass ratio 19 NRG Serum or plasma creatinine measurement w ith calculation of estimated glomerular filtration rate > NRG Serum or plasma glucose measurement (mass/volume) 148 mg/dL 70-105 Serum or plasma calcium measurement (mass/volume) 9.1 mg/dL 8.5-10.1 Serum or plasma total bilirubin measurement (mass/volu me) 0.4 mg/dL 0.1-1.0 Serum or plasma alkaline phosphatase alonso surement (enzymatic activity/volume) 113 U/L 40-136 Serum or plasma aspartate aminotransfera se measurement (enzymatic activity/volume) 18 U/L 5-34 Serum or plasma alanine aminotransferase measurement (enzymatic activity/volume) 16 U/L 0-55 Serum or plasma protein measurement (mass/volume) 6.7 g/dL 6.4-8.2 Serum or plasma albumin measurement (mass/volume) 4.0 g/dL 3.2-4.5 CALCIUM CORRECTED 9.1 mg/dL 8.5-10.1 PT panel in platelet poor plasma by coag ulation assay - 05/18/19 17:25 Prothrombin time (PT) in platelet poor plasma by coagu lation assay 13.1 s 12.2-14.7 INR in platelet poor plasma or blood by coagulation as say 1.0 0.8-1.4 Manual absolute plasma cell count - 05/04 06/23 17:25 Blood monocytes/100 leukocytes 7 % NRG Manual blood segmented neutrophils/100 leukocytes 56 % NRG Blood band neutrophils/100 leukocytes 3 % NRG Manual blood lymphocytes/100 leukocytes 31 % NRG Manual eosinophils/100 leukocytes in nose 3 % NRG Blood hypersegmented neutrophils detection by light mi croscopy MODERATE NRG Erythrocyte sedimentation rate by parth gren method - 05/18/19 17:25 Erythrocyte sedimentation rate by westergren method 71 mm 0- 30 Capillary blood glucose measurement by g lucometer (mass/volume) - 05/18/19 23:02 Capillary blood glucose measurement by glucometer (mas s/volume) 114 mg/dL 70-110 Complete blood count (CBC) with automate d white blood cell (WBC) differential - 05/19/19 04:32 Blood leukocytes automated count (number/volume) 2.7 10*3/uL 4.3-11.0 Blood erythrocytes automated count (number/volume) 3.06 10*6/uL 4.35-5.85 Venous blood hemoglobin measurement (mass/volume) 9.5 g/dL 13.3-17.7 Blood hematocrit (volume fraction) 29 % 40-54 Automated erythrocyte mean corpuscular volume 94 [ foz_us] 80-99 Automated erythrocyte mean corpuscular h emoglobin (mass per erythrocyte) 31 pg 25-34 Automated erythrocyte mean corpuscular h emoglobin concentration measurement (mass/volume) 33 g/dL 32-36 Automated erythrocyte distribution width ratio 13. 3 % 10.0- 14.5 Automated blood platelet count (count/volume) 221 10*3/uL 130-400 Automated blood platelet mean volume measurement 9.5 [foz_us] 7.4-10.4 Automated blood neutrophils/100 leukocytes 62 % 42-75 Automated blood lymphocytes/100 leukocytes 28 % 12-44 Blood monocytes/100 leukocytes 6 % 0-12 Automated blood eosinophils/100 leukocytes 4 % 0-10 Automated blood basophils/100 leukocytes 0 % 0-10 Blood neutrophils automated count (number/volume) 1.7 10*3 1.8-7.8 Blood lymphocytes automated count (number/volume) 0.8 10*3 1.0-4.0 Blood monocytes automated count (number/volume) 0. 2 10*3 0.0-1.0 Automated eosinophil count 0.1 10*3/uL 0 .0-0.3 Automated blood basophil count (count/volume) 0.0 10*3/uL 0.0-0.1 Comprehensive metabolic panel - 05/19/19 04:32 Serum or plasma sodium measurement (moles/volume) 136 mmol/L 135-145 Serum or plasma potassium measurement (moles/volume) 3.8 mmol/L 3.6-5.0 Serum or plasma chloride measurement (moles/volume) 105 mmol/L 98-107 Carbon dioxide 21 mmol/L 21-32 Serum or plasma anion gap determination (moles/volume) 10 mmol/L 5-14 Serum or plasma urea nitrogen measurement (mass/volume ) 13 mg/dL 7-18 Serum or plasma creatinine measurement (mass/volume) 0.79 mg/dL 0.60-1.30 Serum or plasma urea nitrogen/creatinine mass ratio 16 NRG Serum or plasma creatinine measurement w ith calculation of estimated glomerular filtration rate > NRG Serum or plasma glucose measurement (mass/volume) 130 mg/dL 70-105 Serum or plasma calcium measurement (mass/volume) 8.4 mg/dL 8.5-10.1 Serum or plasma total bilirubin measurement (mass/volu me) 0.5 mg/dL 0.1-1.0 Serum or plasma alkaline phosphatase alonso surement (enzymatic activity/volume) 89 U/L 40-136 Serum or plasma aspartate aminotransfera se measurement (enzymatic activity/volume) 15 U/L 5-34 Serum or plasma alanine aminotransferase measurement (enzymatic activity/volume) 14 U/L 0-55 Serum or plasma protein measurement (mass/volume) 5.6 g/dL 6.4-8.2 Serum or plasma albumin measurement (mass/volume) 3.4 g/dL 3.2-4.5 CALCIUM CORRECTED 8.9 mg/dL 8.5-10.1 Capillary blood glucose measurement by g lucometer (mass/volume) - 05/19/19 05:27 Capillary blood glucose measurement by glucometer (mas s/volume) 151 mg/dL 70-110 Capillary blood glucose measurement by g lucometer (mass/volume) - 05/19/19 10:49 Capillary blood glucose measurement by glucometer (mas s/volume) 215 mg/dL 70-110 Encounters ACCT No. Visit Date/Time Discharge Status Pt. Type Provider Facility Loc./Unit Complaint [id number] 04/25/2014 09:09:00 04/25/2014 23:59: 59 CLS Outpatient ADAM DRAPER DO [id number] 03/21/2014 10:20:00 03/21/2014 23:59: 59 CLS Outpatient SHADIA BLAIR APRN [id number] 02/17/2014 10:13:00 02/17/2014 23:59: 59 CLS Outpatient SHADIA BLAIR APRN [id number] 12/16/2013 09:09:00 12/16/2013 23:59: 59 CLS Outpatient SHADIA BLAIR APRN [id number] 11/20/2013 08:07:00 11/20/2013 23:59: 59 CLS Outpatient SHADIA BLAIR APRN [id number] 11/15/2013 12:13:00 11/15/2013 23:59: 59 CLS Outpatient SHADIA BLAIR APRN [id number] 07/15/2013 09:15:00 07/15/2013 23:59: 59 CLS Outpatient ADAM DRAPER DO [id number] 05/03/2013 08:48:00 05/03/2013 23:59: 59 CLS Outpatient ZOE REED MD [id number] 04/01/2013 10:04:00 04/01/2013 23:59: 59 CLS Outpatient SHADIA BLAIR APRN [id number] 01/25/2013 08:54:00 01/25/2013 23:59: 59 CLS Outpatient AADM DRAPER DO [id number] 12/26/2012 10:43:00 12/26/2012 23:59: 59 CLS Outpatient SHADIA BLAIR APRN [id number] 12/12/2012 14:22:00 12/12/2012 23:59: 59 CLS Outpatient SHADIA BLAIR APRN [id number] 09/04/2012 14:22:00 09/04/2012 23:59: 59 CLS Outpatient ADAM DRAPER DO [id number] 05/30/2012 16:04:00 05/30/2012 23:59: 59 CLS Outpatient [id number] 05/25/2012 08:09:00 05/25/2012 23:59: 59 CLS Outpatient SHADIA BLAIR APRN [id number] 05/15/2012 14:05:00 05/15/2012 23:59: 59 CLS Outpatient [id number] 02/08/2012 10:02:00 02/08/2012 23:59: 59 CLS Outpatient [id number] 01/11/2012 11:51:00 01/11/2012 23:59:5 9 CLS Outpatient SHADIA BLAIR APRN [id number] 06/27/2012 10:09:00 Document Registration [id number] 04/22/2019 09:52:00 020 23:59:59 CLS Outpatient CLIFF CUELLAR [facility] ONC [id number] 02/21/2019 10:47:00 019 23:59:59 CLS Outpatient LISA PICKARD [facility] RAD IMAGING STUDY T O RESTAGE NEOPLASM [id number] 12/31/2018 09:44:00 019 00:01:00 DIS Outpatient CLIFF CUELLAR [facility] ONC [id number] 11/28/2018 10:33:00 019 23:59:59 CLS Outpatient CLIFF CUELLAR [facility] RAD CHRONIC LYMPHOCYTIC MARTINEZ EMIA [id number] 10/01/2018 08:07:00 019 00:01:00 DIS Outpatient CLIFF CUELLAR [facility] ONC [id number] 08/20/2018 07:50:00 23:59:59 CLS Outpatient CLIFF CUELLAR V ia [facility] RAD CHRONIC LYMPHOCYTIC ANA KEMIA [id number] 07/31/2018 11:44:00 23:59:59 CLS Preadmit CLIFF CUELLAR [facility] RAD CHRONIC LYMPHOCYTIC ANA KEMIA [id number] 07/02/2018 09:02:00 08:50:00 DIS Outpatient MARIELA ALANIZ, SADE [facility] ONC [id number] 06/25/2018 08:31:00 08:49:00 DIS Outpatient CLIFF CUELLAR V [facility] ONC [id number] 05/22/2018 16:35:00 019 12:21:00 DIS Inpatient NAIF TRAYLOR MD [facility] 4TH BILAT PNEUMONIA,INFLUEN ZA [id number] 05/16/2018 07:16:00 10:57:00 DIS Outpatient DELDRAGAN DO SUSY B [facility] LEUKEMIA [id number] 05/15/2018 05:44:00 11:07:00 DIS Outpatient DELDRAGAN DO SUSY B [facility] PREOP LEUKEMIA [id number] 04/25/2018 10:12:00 00:01:00 DIS Outpatient CLIFF CUELLAR V [facility] ONC [id number] 04/29/2018 14:04:00 15:21:00 DIS Emergency RC, LESLI [employer] FINISHER [facility] ER POST OP/INCISION OPENED UP [id number] 04/18/2018 07:59:00 12:25:00 DIS Outpatient DELDRAGAN DO SUSY B [facility] GENERALIZED ENLARGED LY MPH NODES, CLL [id number] 04/13/2018 05:33:00 02/08/2 019 14:59:00 DIS Outpatient SUSY ROTHMAN DO [facility] PREOP GENERALIZED ENLARGED LY MPH NODES, CLL [id number] 04/04/2018 09:55:00 019 23:59:59 CLS Outpatient LISA PICKARD [facility] RAD IMAGING STUDY T O RESTAGE NEOPLASM [id number] 01/29/2018 08:55:00 018 00:01:00 DIS Outpatient CLIFF CUELLAR V ia [facility] ONC [id number] 01/02/2018 12:42:00 23:59:59 CLS Outpatient JARRETT CALLE MD [facility] RAD 715.16 M17.0 [id number] 11/10/2017 11:23:00 018 12:49:00 DIS Outpatient JARRETT CALLE MD [facility] REHAB L TKA [id number] 11/07/2017 14:25:00 018 23:59:59 CLS Outpatient CLIFF CUELLAR V [facility] RAD LYMPHOCYTOSIS,LYMPHADEN OPATHY [id number] 09/20/2017 05:51:00 018 11:10:00 DIS Inpatient JARRETT CALLE MD [facility] 4TH OSTEOARTHRITIS RIGHT KN EE [id number] 09/19/2017 13:29:00 018 23:59:59 CLS Outpatient NYA ALANIZ, TR Puri [facility] LAB CLL [id number] 09/19/2017 08:00:00 018 09:53:00 DIS Outpatient JARRETT CALLE MD [facility] REHAB L TKA; BILATERAL PRIMA RY OA OF KNEE [id number] 09/12/2017 13:20:00 018 13:55:00 DIS Outpatient JARRETT CALLE MD [facility] PREOP OSTEOARTHRITIS RIGHT K NEE [id number] 07/19/2017 06:00:00 018 12:00:00 DIS Inpatient JARRETT CALLE MD [facility] 4TH LEFT KNEE OSTEOARTHRITI S [id number] 07/12/2017 10:04:00 018 11:10:00 DIS Outpatient JARRETT CALLE MD [facility] PREOP LEFT TOTAL KNEE REPLAC EMENT [id number] 05/18/2019 17:49:00 Document Registration [id number] 05/15/2019 16:40:00 05/15/2019 23:59:5 9 CLS Outpatient SHADIA BLAIR APRN [facility]
--- OUTSIDE RECORDS SUMMARY | 2019-05-19 21:37 | XMS REPORT | Continuity of Care Document ---
Author Organization Unknown Address Unknown Phone Unavailable Allergies Active Description Code Type Severity Reaction Onset Reported/Identified Relationship to Patient Clinical Status Yes Lisinopril HCTZ Drug Allergy 12/16/2008 Yes No Known Drug Allergies [id number] Drug Allergy Unknown N/A 04/18/2018 Medications There [...] FOR ANTINEOPLASTIC CHEMOTHERAP CLIFF CUELLAR Ot Z79.4 RESIDENTIAL (CURRENT) USE OF INSULIN CLIFF CUELLAR Ot Z79.82 RESIDENTIAL (CURRENT) USE OF ASPIRIN CLIFF CUELLAR Ot Z79.899 OTHER SCHEDULE MAKER (CURRENT) DRUG THERAPY CLIFF CUELLAR Ot Z96.6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, BILAT SADE SIERRA MD Ot C91.1 0 CHRONIC LYMPHOCYTIC LEUK OF B-CELL TYPE SADE SIERRA MD, Ot D64.9 ANEMIA, UNSPECIFIED SADE SIERRA MD Ot E11.9 TYPE 2 DIABETES MELLITUS WITHOUT COMPLIC SADE SIERRA MD Ot I10 ESSENTIAL (PRIMARY) HYPERTENSION SADE SIERRA MD Ot Z51.1 1 ENCOUNTER FOR ANTINEOPLASTIC CHEMOTHERAP SADE SIERRA MD Ot Z79.4 RESIDENTIAL (CURRENT) USE OF INSULIN MARIELA ALANIZ, SADE Ot Z79.8 2 RESIDENTIAL (CURRENT) USE OF ASPIRIN SADE SIERRA MD Ot Z79.8 99 OTHER RESIDENTIAL (CURRENT) DRUG THERAPY SADE SIERRA MD Ot [...] K 401.1 ESSENTIAL HYPERTENSION BENIGN 08/15/2008 ROSSY TRANSACTION COORDINATOR, SHADIA T 250.00 DIABETES MELLITUS TYPE 2 08/15/2008 ROSSY TRANSACTION COORDINATOR, SHADIA T 40 1.1 ESSENTIAL HYPERTENSION BENIGN 08/15/2008 ZOE REED MD 250.0 0 DIABETES MELLITUS TYPE 2 08/15/2008 ZOE REED MD 401.1 ESSENTIAL HYPERTENSION BENIGN 08/15/2008 DRAPER DO, ADAM K 250.00 DIABETES MELLITUS TYPE 2 08/15/2008 DRAPER DO, ADAM K 401.1 ESSENTIAL HYPERTENSION BENIGN 08/15/2008 ROSSY TRANSACTION COORDINATOR, SHADIA T 250.00 DIABETES MELLITUS TYPE 2 08/15/2008 ROSSY TRANSACTION COORDINATOR, SHADIA T 40 1.1 ESSENTIAL HYPERTENSION BENIGN 08/15/2008 ROSSY TRANSACTION COORDINATOR, SHADIA T 250.00 DIABETES MELLITUS TYPE 2 08/15/2008 ROSSY TRANSACTION COORDINATOR, SHADIA T 40 1.1 ESSENTIAL HYPERTENSION BENIGN 08/15/2008 ROSSY TRANSACTION COORDINATOR, SHADIA T 250.00 DIABETES MELLITUS TYPE 2 08/15/2008 ROSSY TRANSACTION COORDINATOR, SHADIA T 40 1.1 ESSENTIAL HYPERTENSION BENIGN 08/15/2008 ROSSY TRANSACTION COORDINATOR, SHADIA T 250.00 DIABETES MELLITUS TYPE 2 08/15/2008 ROSSY TRANSACTION COORDINATOR, SHADIA T 40 1.1 ESSENTIAL HYPERTENSION BENIGN 08/15/2008 ROSSY TRANSACTION COORDINATOR, SHADIA T 250.00 DIABETES MELLITUS TYPE 2 08/15/2008 ROSSY TRANSACTION COORDINATOR, SHADIA T 40 1.1 ESSENTIAL HYPERTENSION BENIGN [...] LEFT 07/22/2017 JARRETT CALLE MD Ot Z79.4 SCHEDULE MAKER (CURRENT) USE OF INSULIN 08/23/2017 JARRETT CALLE [...] BLD/BLD-FOR 09/23/2017 JARRETT CALLE MD, Ot Z79.4 RESIDENTIAL (CURRENT) USE OF INSULIN 09/23/2017 JARRETT CALLE [...] (PRIMARY) HYPERTENSION 12/01/2017 CLIFF CUELLAR Ot Z79.4 SCHEDULE MAKER (CURRENT) USE OF INSULIN 12/01/2017 POLO, BOBAN N Ot Z79.82 RESIDENTIAL (CURRENT) USE OF ASPIRIN 12/01/2017 CLIFF CUELLAR N Ot Z79.899 OTHER SCHEDULE MAKER (CURRENT) DRUG THERAPY 12/01/2017 CLIFF CUELLAR N [...] HYPERTENSION 01/11/2018 CLIFF CUELLAR N Ot Z79.4 SCHEDULE MAKER (CURRENT) USE OF INSULIN 01/11/2018 CLIFF CUELLAR N Ot Z79.82 RESIDENTIAL (CURRENT) USE OF ASPIRIN 01/11/2018 CLIFF CUELLAR N Ot Z79.899 OTHER SCHEDULE MAKER (CURRENT) DRUG THERAPY 01/11/2018 CLIFF CUELLAR N [...] HYPERTENSION 01/31/2018 CLIFF CUELLAR N Ot Z79.4 SCHEDULE MAKER (CURRENT) USE OF INSULIN 01/31/2018 POLO, BOBAN N Ot Z79.82 RESIDENTIAL (CURRENT) USE OF ASPIRIN 01/31/2018 POLOVANDANA YOUSIFAN N Ot Z79.899 OTHER SCHEDULE MAKER (CURRENT) DRUG THERAPY 01/31/2018 CLIFF CUELLAR N Ot Z96.6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, BILAT 02/01/2018 CLIFF CUELLAR N Ot D64.9 ANEMIA, UNSPECIFIED 02/01/2018 POLOVANDANAAN N Ot D72.820 LYMPHOCYTOSIS (SYMPTOMATIC) 02/01/2018 POLO, VANDANAIZA N Ot E11.9 TYPE 2 DIABETES MELLITUS WITHOUT COMPLIC 02/01/2018 POLO BOBAN N Ot I10 ESSENTIAL (PRIMARY) HYPERTENSION 02/01/2018 POLOVANDANAAN N Ot Z79.4 RESIDENTIAL (CURRENT) USE OF INSULIN 02/01/2018 POLO, VANDANAAN N Ot Z79.82 SCHEDULE MAKER (CURRENT) USE OF ASPIRIN 02/01/2018 POLOCLIFF YOUSIF N Ot Z79.899 OTHER SCHEDULE MAKER (CURRENT) DRUG THERAPY 02/01/2018 CLIFF CUELLAR N Ot Z96.6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, BILAT 03/12/2018 POLO BOBAN N Ot D64.9 ANEMIA, UNSPECIFIED 03/12/2018 POLO BOBAN N Ot D72.820 LYMPHOCYTOSIS (SYMPTOMATIC) 03/12/2018 POLO, BOBIZA N Ot E11.9 TYPE 2 DIABETES MELLITUS WITHOUT COMPLIC 03/12/2018 POLO BOBAN N Ot I10 ESSENTIAL (PRIMARY) HYPERTENSION 03/12/2018 POLO, VANDANAIZA N Ot Z79.4 SCHEDULE MAKER (CURRENT) USE OF INSULIN 03/12/2018 POLO VANDANAIZA N Ot Z79.82 SCHEDULE MAKER (CURRENT) USE OF ASPIRIN 03/12/2018 POLOVANDANAAN N Ot Z79.899 OTHER SCHEDULE MAKER (CURRENT) DRUG THERAPY 03/12/2018 POLOVANDANAAN N Ot Z96.6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, BILAT 04/02/2018 POLO BOBAN N Ot D64.9 ANEMIA, UNSPECIFIED 04/02/2018 POLO, BOBAN N Ot D72.820 LYMPHOCYTOSIS (SYMPTOMATIC) 04/02/2018 POLO BOBAN N Ot E11.9 TYPE 2 DIABETES MELLITUS WITHOUT COMPLIC 04/02/2018 POLO BOBAN N Ot I10 ESSENTIAL (PRIMARY) HYPERTENSION 04/02/2018 CLIFF CUELLAR Ot Z79.4 SCHEDULE MAKER (CURRENT) USE OF INSULIN 04/02/2018 CLIFF CUELLAR Ot Z79.82 SCHEDULE MAKER (CURRENT) USE OF ASPIRIN 04/02/2018 CLIFF CUELLAR Ot Z79.899 OTHER RESIDENTIAL (CURRENT) DRUG THERAPY 04/02/2018 CLIFF CUELLAR Ot Z96.6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, BILAT 04/04/2018 LISA PICKARDP Ot C91.10 CHRONIC LYMPHOCYTIC LEUK OF B-CELL TYPE 04/06/2018 PICKARDLISA Cope RUBBER STAMP ASSEMBLER Ot C91.10 CHRONIC LYMPHOCYTIC LEUK OF B-CELL [...] 04/18/2018 SUSY ROTHMAN DO B Ot Z79.4 RESIDENTIAL (CURRENT) USE OF INSULIN 04/18/2018 SUSY ROTHMAN DO B Ot Z79.8 2 RESIDENTIAL (CURRENT) USE OF ASPIRIN 04/18/2018 SUSY ROTHMAN DO B Ot Z79.8 99 OTHER RESIDENTIAL (CURRENT) DRUG THERAPY 04/18/2018 SUSY ROTHMAN DO [...] ADULT 04/24/2018 LORNA HOLLYSUSY B Ot Z79.4 SCHEDULE MAKER (CURRENT) USE OF INSULIN 04/24/2018 LORNA HOLLY SUSY B Ot Z79.8 2 SCHEDULE MAKER (CURRENT) USE OF ASPIRIN 04/24/2018 LORNA HOLLYANDRESIC B Ot Z79.8 99 OTHER RESIDENTIAL (CURRENT) DRUG THERAPY 04/24/2018 LORNA HOLLY SUSY [...] ARTIFICIAL KNEE JOINT, BILAT 04/29/2018 LESLI TATUM RUBBER STAMP ASSEMBLER Ot Z98.890 OTHER SPECIFIED POSTPROCEDURAL STATES 04/30/2018 CLIFF CUELLAR Ot C91.10 CHRONIC LYMPHOCYTIC LEUK OF B-CELL TYPE 04/30/2018 CLIFF CUELLAR Pranay Ot D64.9 ANEMIA, UNSPECIFIED 04/30/2018 CLIFF CUELLAR Pranay Ot E11.9 TYPE 2 DIABETES MELLITUS WITHOUT COMPLIC 04/30/2018 CLIFF CUELLAR Pranay Ot I10 ESSENTIAL (PRIMARY) HYPERTENSION 04/30/2018 CLIFF CUELLAR Pranay Ot Z51.11 ENCOUNTER FOR ANTINEOPLASTIC CHEMOTHERAP 04/30/2018 CLIFF CUELLAR Pranay Ot Z79.4 SCHEDULE MAKER (CURRENT) USE OF INSULIN 04/30/2018 CLIFF CUELLAR Pranay Ot Z79.82 RESIDENTIAL (CURRENT) USE OF ASPIRIN 04/30/2018 CLIFF CUELLAR Pranay Ot Z79.899 OTHER SCHEDULE MAKER (CURRENT) DRUG THERAPY 04/30/2018 CLIFF CUELLAR Pranay [...] 05/02/2018 ANDRES ROTHMAN DOIC B Ot Z79.4 SCHEDULE MAKER (CURRENT) USE OF INSULIN 05/02/2018 ANDRES ROTHMAN DOIC B Ot Z79.8 2 SCHEDULE MAKER (CURRENT) USE OF ASPIRIN 05/02/2018 ANDRES ROTHMAN DOIC B Ot Z79.8 99 OTHER SCHEDULE MAKER (CURRENT) DRUG THERAPY 05/02/2018 ANDRES ROTHMAN DOIC B Ot 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, BILAT 05/02/2018 RC, LESLI RUBBER STAMP ASSEMBLER Ot E11.9 TYPE 2 DIABETES MELLITUS WITHOUT [...] ANTINEOPLASTIC CHEMOTHERAP 05/06/2018 CLIFF CUELLAR Ot Z79.4 RESIDENTIAL (CURRENT) USE OF INSULIN 05/06/2018 CLIFF CUELLAR N Ot Z79.82 SCHEDULE MAKER (CURRENT) USE OF ASPIRIN 05/06/2018 CLIFF CUELLAR N Ot Z79.899 OTHER SCHEDULE MAKER (CURRENT) DRUG THERAPY 05/06/2018 CLIFF CUELLAR Ot [...] CHEMOTHERAP 05/07/2018 CLIFF CUELLAR N Ot Z79.4 RESIDENTIAL (CURRENT) USE OF INSULIN 05/07/2018 CLIFF UCELLAR N Ot Z79.82 SCHEDULE MAKER (CURRENT) USE OF ASPIRIN 05/07/2018 CLIFF CUELLAR Pranay Ot Z79.899 OTHER SCHEDULE MAKER (CURRENT) DRUG THERAPY 05/07/2018 CLIFF CUELLAR Pranay [...] FOR ANTINEOPLASTIC CHEMOTHERAP 05/07/2018 POLOCLIFF Ot Z79.4 RESIDENTIAL (CURRENT) USE OF INSULIN 05/07/2018 POLOCLIFF Ot Z79.82 RESIDENTIAL (CURRENT) USE OF ASPIRIN 05/07/2018 POLOCLIFF Ot Z79.899 OTHER SCHEDULE MAKER (CURRENT) DRUG THERAPY 05/07/2018 POLO VANDANAIZA Pranay [...] ANTINEOPLASTIC CHEMOTHERAP 05/15/2018 CLIFF CUELLAR Ot Z79.4 SCHEDULE MAKER (CURRENT) USE OF INSULIN 05/15/2018 CLIFF CUELLAR N Ot Z79.82 SCHEDULE MAKER (CURRENT) USE OF ASPIRIN 05/15/2018 CLIFF CUELLAR Ot Z79.899 OTHER SCHEDULE MAKER (CURRENT) DRUG THERAPY 05/15/2018 CLIFF CUELLAR Ot [...] I10 ESSENTIAL (PRIMARY) HYPERTENSION 05/16/2018 DELDRAGAN DO SSUY B Ot I87.2 VENOUS INSUFFICIENCY (CHRONIC) (PERIPHER 05/16/2018 LORNA DO SUSY B Ot Z11.2 ENCOUNTER FOR SCREENING FOR OTHER BACTER 05/16/2018 DELMAN DO SUSY B Ot Z79.4 RESIDENTIAL (CURRENT) USE OF INSULIN 05/16/2018 LORNA HOLLY SUSY B Ot Z79.8 99 OTHER SCHEDULE MAKER (CURRENT) DRUG THERAPY 05/16/2018 LORNA HOLLY SUSY [...] ANTINEOPLASTIC CHEMOTHERAP 05/17/2018 CLIFF CUELLAR Ot Z79.4 RESIDENTIAL (CURRENT) USE OF INSULIN 05/17/2018 POLO, BOBAN N Ot Z79.82 RESIDENTIAL (CURRENT) USE OF ASPIRIN 05/17/2018 CLIFF CUELLAR N Ot Z79.899 OTHER SCHEDULE MAKER (CURRENT) DRUG THERAPY 05/17/2018 CLIFF CUELLAR N Ot Z96.6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, BILAT 05/17/2018 CLIFF CUELLAR N Ot C91.10 CHRONIC LYMPHOCYTIC LEUK OF B-CELL TYPE 05/17/2018 POLO CLIFF Pires Ot D64.9 ANEMIA, UNSPECIFIED 05/17/2018 POLO CLIFF N Ot E11.9 TYPE 2 DIABETES MELLITUS WITHOUT COMPLIC 05/17/2018 OPLO VANDANAIZA N Ot I10 ESSENTIAL (PRIMARY) HYPERTENSION 05/17/2018 CLIFF CUELLAR Pranay Ot Z51.11 ENCOUNTER FOR ANTINEOPLASTIC CHEMOTHERAP 05/17/2018 POLO CLIFF Pranay Ot Z79.4 SCHEDULE MAKER (CURRENT) USE OF INSULIN 05/17/2018 POLOVANDANAIZA N Ot Z79.82 RESIDENTIAL (CURRENT) USE OF ASPIRIN 05/17/2018 CLIFF CUELLAR Pranay Ot Z79.899 OTHER RESIDENTIAL (CURRENT) DRUG THERAPY 05/17/2018 CLIFF CUELLAR Pranay [...] 05/19/2018 DELMAN DO, SUSY B Ot Z79.4 RESIDENTIAL (CURRENT) USE OF INSULIN 05/19/2018 LORNA DO, SUSY B Ot Z79.8 99 OTHER SCHEDULE MAKER (CURRENT) DRUG THERAPY 05/19/2018 DELMAN DO, SUSY [...] 05/22/2018 CRISTÓBALDRAGAN ANDRES HOLLYIC B Ot Z79.4 RESIDENTIAL (CURRENT) USE OF INSULIN 05/22/2018 LORNA HOLLYANDRESIC B Ot Z79.8 99 OTHER RESIDENTIAL (CURRENT) DRUG THERAPY 05/22/2018 LORNA HOLLY SUSY [...] Ot Z51.11 ENCOUNTER FOR ANTINEOPLASTIC CHEMOTHERAP 06/12/2018 CLIFF CUELLAR Ot Z79.4 RESIDENTIAL (CURRENT) USE OF INSULIN 06/12/2018 POLO BOBAN N Ot Z79.82 SCHEDULE MAKER (CURRENT) USE OF ASPIRIN 06/12/2018 POLO, BOBAN N Ot Z79.899 OTHER SCHEDULE MAKER (CURRENT) DRUG THERAPY 06/12/2018 POLO, BOBAN N [...] CHEMOTHERAP 06/29/2018 POLO BOBAN N Ot Z79.4 SCHEDULE MAKER (CURRENT) USE OF INSULIN 06/29/2018 POLO BOBAN N Ot Z79.82 RESIDENTIAL (CURRENT) USE OF ASPIRIN 06/29/2018 POLO BOBAN N Ot Z79.899 OTHER RESIDENTIAL (CURRENT) DRUG THERAPY 06/29/2018 POLO BOBAN N [...] CHEMOTHERAP 07/02/2018 POLO BOBAN N Ot Z79.4 SCHEDULE MAKER (CURRENT) USE OF INSULIN 07/02/2018 POLO BOBAN N Ot Z79.82 SCHEDULE MAKER (CURRENT) USE OF ASPIRIN 07/02/2018 POLO BOBAN N Ot Z79.899 OTHER SCHEDULE MAKER (CURRENT) DRUG THERAPY 07/02/2018 POLO, BOBAN N [...] 07/02/2018 SADE SIERRA MD Ot Z79. 4 SCHEDULE MAKER (CURRENT) USE OF INSULIN 07/02/2018 SADE SIERRA MD Ot Z79. 82 RESIDENTIAL (CURRENT) USE OF ASPIRIN 07/02/2018 SADE SIERRA MD Ot Z79.899 OTHER RESIDENTIAL (CURRENT) DRUG THERAPY 07/02/2018 SADE SIERRA MD [...] 07/02/2018 SADE SIERRA MD Ot Z79. 4 SCHEDULE MAKER (CURRENT) USE OF INSULIN 07/02/2018 SADE SIERRA MD Ot Z79. 82 SCHEDULE MAKER (CURRENT) USE OF ASPIRIN 07/02/2018 SADE SIERRA MD Ot Z79.899 OTHER SCHEDULE MAKER (CURRENT) DRUG THERAPY 07/02/2018 SADE SIERRA MD [...] 07/03/2018 SADE SIERRA MD, Ot Z79. 4 RESIDENTIAL (CURRENT) USE OF INSULIN 07/03/2018 SADE SIERRA MD, Ot Z79. 82 RESIDENTIAL (CURRENT) USE OF ASPIRIN 07/03/2018 SDAE SIERRA MD, Ot Z79.899 OTHER SCHEDULE MAKER (CURRENT) DRUG THERAPY 07/03/2018 SADE SIERRA MD, [...] 2 DIABETES MELLITUS WITHOUT COMPLIC 07/03/2018 CLIFF UCELLAR Ot I10 ESSENTIAL (PRIMARY) HYPERTENSION 07/03/2018 CLIFF CUELLAR Ot Z51.11 ENCOUNTER FOR ANTINEOPLASTIC CHEMOTHERAP 07/03/2018 CLIFF CUELLAR Ot Z79.4 RESIDENTIAL (CURRENT) USE OF INSULIN 07/03/2018 CLIFF CUELLAR Ot Z79.82 RESIDENTIAL (CURRENT) USE OF ASPIRIN 07/03/2018 CLIFF CUELLAR Ot Z79.899 OTHER RESIDENTIAL (CURRENT) DRUG THERAPY 07/03/2018 CLIFF CUELLAR Ot [...] ANTINEOPLASTIC CHEMOTHERAP 07/13/2018 POLOCLIFF N Ot Z79.4 SCHEDULE MAKER (CURRENT) USE OF INSULIN 07/13/2018 POLO BOBAN N Ot Z79.82 SCHEDULE MAKER (CURRENT) USE OF ASPIRIN 07/13/2018 POLO, BOBAN N Ot Z79.899 OTHER RESIDENTIAL (CURRENT) DRUG THERAPY 07/13/2018 POLO BOBAN N [...] ANTINEOPLASTIC CHEMOTHERAP 07/20/2018 POLOCLIFF N Ot Z79.4 RESIDENTIAL (CURRENT) USE OF INSULIN 07/20/2018 POLOCLIFF N Ot Z79.82 RESIDENTIAL (CURRENT) USE OF ASPIRIN 07/20/2018 POLOCLIFF N Ot Z79.899 OTHER SCHEDULE MAKER (CURRENT) DRUG THERAPY 07/20/2018 POLOVANDANAAN N Ot [...] CHEMOTHERAP 07/31/2018 POLOCLIFF YOUSIF N Ot Z79.4 SCHEDULE MAKER (CURRENT) USE OF INSULIN 07/31/2018 POLOCLIFF N Ot Z79.82 RESIDENTIAL (CURRENT) USE OF ASPIRIN 07/31/2018 POLO CLIFF N Ot Z79.899 OTHER SCHEDULE MAKER (CURRENT) DRUG THERAPY 07/31/2018 POLO VANDANAIZA N [...] ANTINEOPLASTIC CHEMOTHERAP 09/10/2018 POLOCLIFF N Ot Z79.4 SCHEDULE MAKER (CURRENT) USE OF INSULIN 09/10/2018 POLOCLIFF N Ot Z79.82 RESIDENTIAL (CURRENT) USE OF ASPIRIN 09/10/2018 POLOCLIFF N Ot Z79.899 OTHER RESIDENTIAL (CURRENT) DRUG THERAPY 09/10/2018 POLO VANDANAIZA N Ot Z96.6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, BILAT 09/12/2018 POLOCLIFF N Ot C91.10 CHRONIC LYMPHOCYTIC LEUK OF B-CELL TYPE 10/01/2018 POLOCLIFF N Ot C91.10 CHRONIC LYMPHOCYTIC LEUK OF B-CELL TYPE 10/01/2018 POLOCLIFF N Ot D64.9 ANEMIA, UNSPECIFIED 10/01/2018 POLOVANDANAAN N Ot E11.9 TYPE 2 DIABETES MELLITUS WITHOUT COMPLIC 10/01/2018 OPLO BOBAN N Ot I10 ESSENTIAL (PRIMARY) HYPERTENSION 10/01/2018 POLO BOBAN N Ot Z51.11 ENCOUNTER FOR ANTINEOPLASTIC CHEMOTHERAP 10/01/2018 POLOCLIFF N Ot Z79.4 RESIDENTIAL (CURRENT) USE OF INSULIN 10/01/2018 POLO, BOBAN N Ot Z79.82 RESIDENTIAL (CURRENT) USE OF ASPIRIN 10/01/2018 POLO, BOBAN N Ot Z79.899 OTHER RESIDENTIAL (CURRENT) DRUG THERAPY 10/01/2018 POLO, BOBAN N [...] CHEMOTHERAP 10/02/2018 POLO BOBAN N Ot Z79.4 SCHEDULE MAKER (CURRENT) USE OF INSULIN 10/02/2018 POLO BOBAN N Ot Z79.82 SCHEDULE MAKER (CURRENT) USE OF ASPIRIN 10/02/2018 POLO BOBAN N Ot Z79.899 OTHER SCHEDULE MAKER (CURRENT) DRUG THERAPY 10/02/2018 POLO BOBAN N [...] CHEMOTHERAP 10/09/2018 POLO BOBAN N Ot Z79.4 SCHEDULE MAKER (CURRENT) USE OF INSULIN 10/09/2018 POLO BOBAN N Ot Z79.82 SCHEDULE MAKER (CURRENT) USE OF ASPIRIN 10/09/2018 POLO, BOBAN N Ot Z79.899 OTHER RESIDENTIAL (CURRENT) DRUG THERAPY 10/09/2018 POLO, BOBAN N [...] ANTINEOPLASTIC CHEMOTHERAP 11/14/2018 POLOVANDANAAN N Ot Z79.4 SCHEDULE MAKER (CURRENT) USE OF INSULIN 11/14/2018 POLOVANDANAAN N Ot Z79.82 SCHEDULE MAKER (CURRENT) USE OF ASPIRIN 11/14/2018 POLO BOBAN N Ot Z79.899 OTHER RESIDENTIAL (CURRENT) DRUG THERAPY 11/14/2018 POLO, BOBAN N [...] ANTINEOPLASTIC CHEMOTHERAP 12/27/2018 POLOCLIFF N Ot Z79.4 SCHEDULE MAKER (CURRENT) USE OF INSULIN 12/27/2018 POLOVANDANAAN N Ot Z79.82 RESIDENTIAL (CURRENT) USE OF ASPIRIN 12/27/2018 POLO BOBAN N Ot Z79.899 OTHER RESIDENTIAL (CURRENT) DRUG THERAPY 12/27/2018 POLO BOBAN N [...] CHEMOTHERAP 01/07/2019 POLO BOBAN N Ot Z79.4 SCHEDULE MAKER (CURRENT) USE OF INSULIN 01/07/2019 POLOCLIFF N Ot Z79.82 RESIDENTIAL (CURRENT) USE OF ASPIRIN 01/07/2019 CLIFF CUELLAR N Ot Z79.899 OTHER RESIDENTIAL (CURRENT) DRUG THERAPY 01/07/2019 CLIFF CUELLAR N [...] CHEMOTHERAP 01/10/2019 CLIFF CUELLAR N Ot Z79.4 SCHEDULE MAKER (CURRENT) USE OF INSULIN 01/10/2019 POLOCLIFF N Ot Z79.82 SCHEDULE MAKER (CURRENT) USE OF ASPIRIN 01/10/2019 POLO CLIFF N Ot Z79.899 OTHER RESIDENTIAL (CURRENT) DRUG THERAPY 01/10/2019 POLO CLIFF N [...] CHEMOTHERAP 02/21/2019 CLIFF CUELLAR Pranay Ot Z79.4 RESIDENTIAL (CURRENT) USE OF INSULIN 02/21/2019 CLIFF CUELLAR Pranay Ot Z79.82 RESIDENTIAL (CURRENT) USE OF ASPIRIN 02/21/2019 CLIFF CUELLAR Pranay Ot Z79.899 OTHER RESIDENTIAL (CURRENT) DRUG THERAPY 02/21/2019 CLIFF CUELLAR Pranay [...] ENLARGED LYMPH NODES 03/04/2019 PICKARD, HILAH S RUBBER STAMP ASSEMBLER Ot C91.10 CHRONIC LYMPHOCYTIC LEUK OF B-CELL TYPE 03/04/2019 LISA PICKARD RUBBER STAMP ASSEMBLER Ot Z01.89 ENCOUNTER FOR OTHER SPECIFIED SPECIAL [...] CHEMOTHERAP 03/04/2019 CLIFF CUELLAR N Ot Z79.4 SCHEDULE MAKER (CURRENT) USE OF INSULIN 03/04/2019 POLOCLIFF N Ot Z79.82 SCHEDULE MAKER (CURRENT) USE OF ASPIRIN 03/04/2019 POLO VANDANAIZA N Ot Z79.899 OTHER RESIDENTIAL (CURRENT) DRUG THERAPY 03/04/2019 CLIFF CUELLAR N [...] ANTINEOPLASTIC CHEMOTHERAP 03/13/2019 POLOCLIFF N Ot Z79.4 SCHEDULE MAKER (CURRENT) USE OF INSULIN 03/13/2019 POLOCLIFF N Ot Z79.82 RESIDENTIAL (CURRENT) USE OF ASPIRIN 03/13/2019 POLOCLIFF N Ot Z79.899 OTHER RESIDENTIAL (CURRENT) DRUG THERAPY 03/13/2019 POLO CLIFF N Ot Z96.6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, BILAT 03/26/2019 LISA PICKARD RUBBER STAMP ASSEMBLER Ot C91.10 CHRONIC LYMPHOCYTIC LEUK OF B-CELL TYPE 03/26/2019 LISA PICKARD RUBBER STAMP ASSEMBLER Ot Z01.89 ENCOUNTER FOR OTHER SPECIFIED SPECIAL EX 04/01/2019 CLIFF CUELLAR Ot C91.10 CHRONIC LYMPHOCYTIC LEUK OF B-CELL TYPE 04/01/2019 CLIFF CUELLAR Ot D64.9 ANEMIA, UNSPECIFIED 04/01/2019 CLIFF CUELLAR Ot E11.9 TYPE 2 DIABETES MELLITUS WITHOUT COMPLIC 04/01/2019 CLIFF CUELLAR Ot I10 ESSENTIAL (PRIMARY) HYPERTENSION 04/01/2019 CLIFF CUELLAR Pranay Ot Z51.11 ENCOUNTER FOR ANTINEOPLASTIC CHEMOTHERAP 04/01/2019 CLIFF CUELLAR Pranay Ot Z79.4 SCHEDULE MAKER (CURRENT) USE OF INSULIN 04/01/2019 CLIFF CUELLAR Pranay Ot Z79.82 SCHEDULE MAKER (CURRENT) USE OF ASPIRIN 04/01/2019 CLIFF CUELLAR Pranay Ot Z79.899 OTHER SCHEDULE MAKER (CURRENT) DRUG THERAPY 04/01/2019 CLIFF CUELLAR Pranay Ot Z96.6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, BILAT Procedures Code [place] [address] A1C (IN-HOUSE) 05/15/2012 72323 ROUT INE VENIPUNCTURE 05/25/2012 44810 CBC 05/25/2012 93257 CMP 05/25/2012 88817 LIPI D PANEL 05/25/2012 [id number] GF R CALC (RESULT ONLY) 05/25/2012 70825 GASTRIN 05/28/2012 90598 A1C (IN-HOUSE) 09/04/2012 37371 A1C (IN-HOUSE) 12/12/2012 60665 MICR O ALBUMIN-IN HOUSE 12/12/2012 96448 MICR OALBUMIN 12/12/2012 23448 A1C (IN-HOUSE) 04/01/2013 92508 A1C (IN-HOUSE) 07/15/2013 26350 A1C (IN-HOUSE) 11/15/2013 11931 ROUT INE VENIPUNCTURE 11/20/2013 73356 CBC 11/20/2013 [id number] GF R CALC (RESULT ONLY) 11/20/2013 45073 CMP 11/20/2013 94400 LIPI D PANEL 11/20/2013 45120 MICR O ALBUMIN-IN HOUSE 02/17/2014 18498 A1C (IN-HOUSE) 02/17/2014 92298 MICR OALBUMIN 02/17/[id number] OF L KNEE JT WITH SYNTH SUB, RICHARD 07/19/[id number] OF R KNEE JT WITH [...] Blood type T Indirect antibody screen pa [facility] - 07/19/17 09:36 ABO+Rh group OP NRG Transfusion band number [id number] NRG Blood group antibody screen NEGATIVE NR [...] 70-110 Whole blood hemoglobin and hematocrit esteban [facility] - 07/20/17 04:43 Venous blood hemoglobin measurement [...] 70-110 Whole blood hemoglobin and hematocrit esteban [facility] - 07/21/17 04:15 Venous blood hemoglobin measurement [...] mg/dL 70-110 Whole blood hemoglobin and hematocrit [facility] - 07/22/17 04:40 Venous blood hemoglobin [...] 3.2-4.5 Blood type T Indirect antibody screen [facility] - 09/12/17 13:43 ABO+Rh group OP NRG Blood group antibody screen NEGATIVE NR G Methicillin resistant Staphylococcus aur eus (MRSA) screening culture - 09/12/17 13:43 Methicillin resistant Staphylococcus aureus (MRSA) scr eening culture NEG NRG Blood type T Indirect antibody screen [facility] - 09/19/17 13:50 ABO+Rh group OP NRG Transfusion band number [id number] NRG Blood group antibody screen NEGATIVE NR G Blood lymphocytes count by flow cytometr y (number/volume) - 09/19/17 13:50 Pathology consultation and report [id number] [facility] Capillary blood glucose measurement by g [...] 17:20 Bacteria identification in wound by culture [id number] NRG QUANTITY OF GROWTH Moderate Growth NRG FREE TEXT ENTRY 2 SCREEN RESULTS TO FOLLOW NRG FREE TEXT ENTRY 3 PRELIM RAPID ID AT [facility] 05/18 08:3 0 NRG Complete blood count [...] Status Pt. Type Provider Facility Loc./Unit Complaint [id number] 04/25/2014 09:09:00 04/25/2014 23:59: 59 CLS Outpatient ADAM DRAPER DO [id number] 03/21/2014 10:20:00 03/21/2014 23:59: 59 CLS Outpatient SHADIA BLAIR APRN [id number] 02/17/2014 10:13:00 02/17/2014 23:59: 59 CLS Outpatient SHADIA BLAIR APRN [id number] 12/16/2013 09:09:00 12/16/2013 23:59: 59 CLS Outpatient SHADIA BLAIR APRN [id number] 11/20/2013 08:07:00 11/20/2013 23:59: 59 CLS Outpatient SHADIA BLAIR APRN [id number] 11/15/2013 12:13:00 11/15/2013 23:59: 59 CLS Outpatient SHADIA BLAIR APRN [id number] 07/15/2013 09:15:00 07/15/2013 23:59: 59 CLS Outpatient ADAM DRAPER DO [id number] 05/03/2013 08:48:00 05/03/2013 23:59: 59 CLS Outpatient ZOE REED MD [id number] 04/01/2013 10:04:00 04/01/2013 23:59: 59 CLS Outpatient SHADIA BLAIR APRN [id number] 01/25/2013 08:54:00 01/25/2013 23:59: 59 CLS Outpatient ADAM DRAPER DO [id number] 12/26/2012 10:43:00 12/26/2012 23:59: 59 CLS Outpatient SHADIA BLAIR APRN [id number] 12/12/2012 14:22:00 12/12/2012 23:59: 59 CLS Outpatient SHADIA BLAIR APRN [id number] 09/04/2012 14:22:00 09/04/2012 23:59: 59 CLS Outpatient ADAM DRAPER DO [id number] 05/30/2012 16:04:00 05/30/2012 23:59: 59 CLS Outpatient [id number] 05/25/2012 08:09:00 05/25/2012 23:59: 59 CLS Outpatient SHADIA BLAIR APRN [id number] 05/15/2012 14:05:00 05/15/2012 23:59: 59 CLS Outpatient [id number] 02/08/2012 10:02:00 02/08/2012 23:59: 59 CLS Outpatient [id number] 01/11/2012 11:51:00 01/11/2012 23:59:5 9 CLS Outpatient SHADIA BLAIR APRN [id number] 06/27/2012 10:09:00 Document Registration [id number] 04/22/2019 09:52:00 020 23:59:59 CLS Outpatient CLIFF CUELLAR [facility] ONC [id number] 02/21/2019 10:47:00 019 23:59:59 CLS Outpatient LISA PICKARD [facility] RAD IMAGING STUDY T O RESTAGE NEOPLASM [id number] 12/31/2018 09:44:00 019 00:01:00 DIS Outpatient CLIFF CUELLAR [facility] ONC [id number] 11/28/2018 10:33:00 019 23:59:59 CLS Outpatient CLIFF CUELLAR [facility] RAD CHRONIC LYMPHOCYTIC MARTINEZ EMIA [id number] 10/01/2018 08:07:00 019 00:01:00 DIS Outpatient CLIFF CUELLAR [facility] ONC [id number] 08/20/2018 07:50:00 23:59:59 CLS Outpatient CLIFF CUELLAR V [facility] RAD CHRONIC LYMPHOCYTIC ANA KEMIA [id number] 07/31/2018 11:44:00 23:59:59 CLS Preadmit CLIFF CUELLAR [facility] RAD CHRONIC LYMPHOCYTIC ANA KEMIA [id number] 07/02/2018 09:02:00 08:50:00 DIS Outpatient MARIELA ALANIZ, SADE [facility] ONC [id number] 06/25/2018 08:31:00 08:49:00 DIS Outpatient CLIFF CUELLAR [facility] ONC [id number] 05/22/2018 16:35:00 019 12:21:00 DIS Inpatient NAFI TRAYLOR MD [facility] 4TH BILAT PNEUMONIA,INFLUEN ZA [id number] 05/16/2018 07:16:00 10:57:00 DIS Outpatient DELDRAGAN DO SUSY B 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 GENERALIZED ENLARGED LY MPH NODES, CLL [id number] 04/13/2018 05:33:00 02/08/2 019 14:59:00 DIS Outpatient SUSY ROTHMAN DO [facility] PREOP GENERALIZED ENLARGED LY MPH NODES, CLL [id number] 04/04/2018 09:55:00 019 23:59:59 CLS Outpatient LISA PICKARD [facility] RAD IMAGING STUDY T O RESTAGE NEOPLASM [id number] 01/29/2018 08:55:00 018 00:01:00 DIS Outpatient CLIFF CUELLAR [facility] [facility] [id number] 01/02/2018 12:42:00 23:59:59 CLS Outpatient JARRETT CALLE MD [facility] RAD 715.16 M17.0 [id number] 11/10/2017 11:23:00 018 12:49:00 DIS Outpatient JARRETT CALLE MD [facility] REHAB L TKA [id number] 11/07/2017 14:25:00 018 23:59:59 CLS Outpatient CLIFF CUELLAR [facility] RAD LYMPHOCYTOSIS,LYMPHADEN OPATHY [id number] 09/20/2017 05:51:00 018 11:10:00 DIS Inpatient JARRETT CALLE MD [facility] 4TH OSTEOARTHRITIS RIGHT KN EE [id number] 09/19/2017 13:29:00 018 23:59:59 CLS Outpatient NYA ALANIZ, TR Puri [facility] LAB CLL [id number] 09/19/2017 08:00:00 018 09:53:00 DIS Outpatient JARRETT CALLE MD [facility] REHAB L TKA; BILATERAL PRIMA RY OA OF KNEE [id number] 09/12/2017 13:20:00 018 13:55:00 DIS Outpatient JARRETT CALLE MD [facility] PREOP OSTEOARTHRITIS RIGHT K NEE [id number] 07/19/2017 06:00:00 018 12:00:00 DIS Inpatient JARRETT CALLE MD [facility] 4TH LEFT KNEE OSTEOARTHRITI S [id number] 07/12/2017 10:04:00 018 11:10:00 DIS Outpatient JARRETT CALLE MD [facility] PREOP LEFT TOTAL KNEE REPLAC EMENT [id number] 05/18/2019 17:49:00 Document Registration [id number] 05/15/2019 16:40:00 05/15/2019 23:59:5 9 CLS Outpatient SHADIA BLAIR APRN [facility]
[2019-05-19] MEDS: ACYCLOVIR 400 MG TABLET (ZOVIRAX) PO SCH (22:05)
[2019-05-20 00:14] VITALS: BP 135/64
[2019-05-20 04:00] VITALS: BP 146/69
[2019-05-20 05:26] LABS: BASOPHILS % (AUTO) 1 % (0-10); EOSINOPHILS # (AUTO) 0.1 10^3/uL (0.0-0.3); EOSINOPHILS % (AUTO) 4 % (0-10); HEMATOCRIT 30 % (40-54); LYMPHOCYTES # (AUTO) 0.9 X 10^3 (1.0-4.0); LYMPHOCYTES % (AUTO) 33 % (12-44); MEAN CORPUSCULAR HEMOGLOBIN 31 PG (25-34); MEAN CORPUSCULAR HGB CONC 33 G/DL (32-36); MEAN CORPUSCULAR VOLUME 94 FL (80-99); MEAN PLATELET VOLUME 9.8 FL (7.4-10.4); MONOCYTES # (AUTO) 0.2 X 10^3 (0.0-1.0); MONOCYTES % (AUTO) 5 % (0-12); NEUTROPHILS # (AUTO) 1.6 X 10^3 (1.8-7.8); NEUTROPHILS % (AUTO) 57 % (42-75); PLATELET COUNT 232 10^3/uL (130-400); RED CELL DISTRIBUTION WIDTH 13.2 % (10.0-14.5); WHITE BLOOD COUNT 2.8 10^3/uL (4.3-11.0)
[2019-05-20] MEDS: PIPERACILLIN/TAZO 4.5 GM/NS 100 ML IV SCH ×6 (05:27→20:56)
[2019-05-20 05:43] LABS: ALANINE AMINOTRANSFERASE 10 U/L (0-55); ALBUMIN 3.5 GM/DL (3.2-4.5); ALKALINE PHOSPHATASE 89 U/L (40-136); BILIRUBIN,TOTAL 0.5 MG/DL (0.1-1.0); BUN/CREATININE RATIO 13; CALCIUM 8.8 MG/DL (8.5-10.1); CARBON DIOXIDE 23 MMOL/L (21-32); CHLORIDE 105 MMOL/L (98-107); CREATININE SERUM 0.83 MG/DL (0.60-1.30); GFR ESTIMATED > 60; GLUCOSE 126 MG/DL (70-105); POTASSIUM 4.5 MMOL/L (3.6-5.0); SODIUM 137 MMOL/L (135-145); TOTAL PROTEIN 5.9 GM/DL (6.4-8.2)
[2019-05-20] MEDS: NovoLOG/HumaLOG RANGE B SC SCH ×4 (05:49→20:58)
[2019-05-20 06:45] LABS: ERYTHROCYTE SEDIMENTATION RATE 72 MM/HR (0-30)
[2019-05-20] MEDS: VANCOMYCIN 1,750 MG/NS 500 ML IVPB IV SCH ×4 (06:52→18:19)
[2019-05-20] MEDS: GLIMEPIRIDE 4 MG (AMARYL) TAB PO SCH ×2 (06:52→18:19)
[2019-05-20 08:49] VITALS: BP 160/69
[2019-05-20] MEDS ORDERED: NON-FORMULARY MEDICATION 1 EA EA (Lovastatin 20 MG) PO SCH (09:00)
[2019-05-20] MEDS: HYDROCHLOROTHIAZIDE 12.5 MG (HCTZ) CAP PO SCH ×2 (09:11→20:56)
[2019-05-20] MEDS: ASPIRIN E.C. 81 MG (ECOTRIN) TAB PO SCH (09:12)
[2019-05-20] MEDS: ENOXAPARIN 40 MG/0.4 ML (LOVENOX) SYR SC SCH ×2 (09:12→20:57)
[2019-05-20] MEDS: meTOprolol TARTRATE 50 MG (LOPRESSOR) TAB PO SCH ×2 (09:12→20:59)
[2019-05-20] MEDS: amLODIPine 5 MG (NORVASC) TAB PO SCH (09:12)
[2019-05-20] MEDS: lisINopril 20 MG (PRINIVIL) TABLET PO SCH ×2 (09:12→20:56)
[2019-05-20] MEDS: ALLOPURINOL 300 MG (ZYLOPRIM) TAB PO SCH (09:12)
[2019-05-20] MEDS: inSUlin ASPART (NovoLOG) 1 UNIT/0.01 ML (CHARGE PER UNIT) SC SCH ×2 (09:13→18:19)
[2019-05-20] MEDS: ACYCLOVIR 400 MG TABLET (ZOVIRAX) PO SCH ×2 (09:16→20:56)
--- NOTE | 2019-05-20 10:56 | NUR ---
"RD ASSESSMENT PMHx: HTN; DM: CA(leukemia) PT INTERACTION: Pt was awake and pleasant during nutrition assessment. Pt states current appetite is alright. Note avg PO intake 100% of meals, per chart review. Pt states following a regular diet at home but tries to watch CHOs, and has no issues with chewing/swallowing food. Pt states no recent issues with n/v/c/d at this time. Note last BM was 05/18, and pt not currently on bowel regimen per chart review. Pt states no recent wt changes. Note unable to determine recent wt hx, per chart review. Pt states current DM management is pretty good, but fluctuates when he has chemotherapy treatments. Note unable to determine recent HbA1c, per chart review. Note pt has presence of wound on L great toe, per chart review. ABNORMAL NUTRITION-RELATED LAB VALUES LOW: Pro 5.9 HIGH: glu 126 Est. kcal needs: 2869-4679 kcal | 15-18 kcal/kg Est. Pro needs: 133-160 g Pro | 1.0-1.2 g Pro/kg PES STATEMENT: Inadequate protein needs (NI-5.6.1) related to increased protein needs as evidenced by presence of wound (L great toe) INTERVENTION: Continue with current diet order of CHO 60g/m 3snack diet. Add Ensure HP (vary) to meals TID. Provides 160 kcal and 16 g Pro per serving for perceived benefit to wound healing. Will continue to follow and reassess as pt needs, intake, and status change. MONITOR/EVALUATE: PO Intake; Plan of Care; Hydration Status; Weight Status; Lab Values Marshal Graham, MS, RD, LD"
[2019-05-20] MEDS ORDERED: LEVO500T80 PO (11:00)
--- NOTE | 2019-05-20 11:34 | NUR ---
SPOKE WITH THE PT (HE HAD A MED LIST I WILL ATTACH TO HIS CHART), WENT THRU THE EXT MED HISTORY AND CALLED [facility] TO COMPLETE THE MED REC. 03-18-2019 AMLODIPINE 5MG #90/90DS (THIS IS NOT SHOWING ON THE EXT MED HISTORY 12-24-2018 NOVOLOG PEN #10 PEN/100 DS- I DOCUMENTED THE PAST DUE FILL ON THE MED REC OTC MEDS: ASPIRIN FISH OIL
[2019-05-20 12:00] VITALS: BP 138/64
--- NOTE | 2019-05-20 12:04 | Diagnostic Imaging Report ---
INDICATION: Discolored and painful extremity. FINDINGS: Within the thigh, there is normal high-resistive triphasic waveform in the common femoral, superficial femoral, and through the popliteal. We note diminished resistance with monophasic waveform at the dorsalis pedis at and beyond the level of the ankle with triphasic waveform in the ankle at the posterior tibial. No focal velocity acceleration or deceleration. No abnormal spectral broadening. No findings of hemodynamically significant focal stenosis and no segmental occlusion. The technologist reports there were large lymph nodes in the groin, however no submitted images documenting that finding are available for my review. IMPRESSION: No findings of hemodynamically significant left lower extremity arterial stenosis or segmental occlusion. Dictated by: Dictated on workstation # [id number]
[2019-05-20 16:12] VITALS: BP 139/71
--- NOTE | 2019-05-20 18:11 | Progress Note ---
Subjective Subjective/Events-last exam No concerns this AM. States that swelling has improved. Tolerating PO diet. Pain well controlled Review of Systems Pulmonary: No Dyspnea Cardiovascular: No: Chest Pain Gastrointestinal: No: Nausea, Vomiting, Abdominal Pain Neurological: Numbness Focused Exam Lactate Level 05/18/19 17:25: Lactic Acid Level 1.51 Objective Exam Last Set of Vital Signs Vital Signs Date Time Temp Pulse Resp B/P (MAP) Pulse Ox O2 Delivery O2 Flow Rate FiO2 05/20/19 16:12 36.4 80 20 139/71 (93) 97 Room Air Capillary Refill : Less Than 3 SecondsLess Than 3 Seconds I&O Intake and Output 05/20/19 00:00 Intake Total 2357.5 ml Balance 2357.5 ml Intake Oral 1720 ml IV Total 637.5 ml # Voids 8 # Bowel Movements 1 Daily Weight Change No General: Alert, Oriented X3, Cooperative, No Acute Distress HEENT: Mucous Memb Moist/Free Soil Lungs: Clear to Auscultation Heart: Regular Rate, No Murmurs Abdomen: Normal Bowel Sounds, No Tenderness, No Masses Extremities: Other (LLE with erythema and swelling present, Nodules present in left groin and popliteal: ttp, firm and non mobile) Neuro: Normal Speech, Sensation Intact, Cranial Nerves 3-12 NL Results/Procedures Lab Laboratory Tests 05/19/19 20:28: Glucometer 154H 05/20/19 04:40: White Blood Count 2.8L, Red Blood Count 3.18L, Hemoglobin 10.0L, Hematocrit 30L, Mean Corpuscular Volume 94, Mean Corpuscular Hemoglobin 31, Mean Corpuscular Hemoglobin Concent 33, Red Cell Distribution Width 13.2, Platelet Count 232, Mean Platelet Volume 9.8, Neutrophils (%) (Auto) 57, Lymphocytes (%) (Auto) 33, Monocytes (%) (Auto) 5, Eosinophils (%) (Auto) 4, Basophils (%) (Auto) 1, Neutrophils # (Auto) 1.6L, Lymphocytes # (Auto) 0.9L, Monocytes # (Auto) 0.2, Eosinophils # (Auto) 0.1, Basophils # (Auto) 0.0, Erythrocyte Sedimentation Rate 72H, Sodium Level 137, Potassium Level 4.5, Chloride Level 105, Carbon Dioxide Level 23, Anion Gap 9, Blood Urea Nitrogen 11, Creatinine 0.83, Estimat G lomerular Filtration Rate > 60, BUN/Creatinine Ratio 13, Glucose Level 126H, Calcium Level 8.8, Corrected Calcium 9.2, Total Bilirubin 0.5, Aspartate Amino Transf (AST/SGOT) 16, Alanine Aminotransferase (ALT/SGPT) 10, Alkaline Phosphat ase 89, Total Protein 5.9L, Albumin 3.5 05/20/19 08:34: Glucometer 229H 05/20/19 10:59: Glucometer 268H 05/20/19 16:02: Glucometer 157H Microbiology 05/18/19 Blood Culture - Preliminary, Resulted No growth 05/18/19 Gram Stain - Final, Resulted 05/18/19 Wound Culture - Preliminary, Resulted Staphylococcus aureus Assessment/Plan Assessment/Plan (1) Diabetic ulcer of left foot Status: Acute Assessment & Plan: 05/19: Continue IV antibiotics, Surgery consulted and appreciate recommendations Qualifiers: Qualified Codes: E11.621 - Type 2 diabetes mellitus with foot ulcer; L97.529 - Non-pressure chronic ulcer of other part of left foot with unspecified severity (2) Cellulitis of left lower extremity Status: Acute (3) Lymphadenopathy Status: Chronic Assessment & Plan: 05/19: Patient with h/o CLL under treatment, reactive LA vs superficial phlebitis, Doppler US today w/o blood clots noted (4) Leukopenia Status: Chronic Qualifiers: Qualified Codes: 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 - Agranulocytosis secondary to cancer chemotherapy; T45.1X5A - Adverse effect of antineoplastic and immunosuppressive drugs, initial encounter (5) Normocytic anemia Status: Chronic Assessment & Plan: 05/19: at baseline (6) Insulin dependent diabetes mellitus with complications Status: Chronic Assessment & Plan: 05/19: Continue home insulin, A1c pending, SSI, accuchecks (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
[2019-05-20 20:41] VITALS: BP 171/71
[2019-05-20] MEDS ORDERED: SIMvastatin 10 MG (ZOCOR) TAB PO SCH (21:00)
[2019-05-21] VITALS: BP 155/70
[2019-05-21 04:55] VITALS: BP 161/72
[2019-05-21] MEDS: VANCOMYCIN 1,750 MG/NS 500 ML IVPB IV SCH ×2 (06:04)
[2019-05-21] MEDS: PIPERACILLIN/TAZO 4.5 GM/NS 100 ML IV SCH ×4 (06:04→13:43)
[2019-05-21] MEDS: GLIMEPIRIDE 4 MG (AMARYL) TAB PO SCH (06:08)
[2019-05-21] MEDS: NovoLOG/HumaLOG RANGE B SC SCH ×2 (06:39→11:42)
[2019-05-21 07:04] LABS: BASOPHILS % (AUTO) 0 % (0-10); EOSINOPHILS # (AUTO) 0.1 10^3/uL (0.0-0.3); EOSINOPHILS % (AUTO) 2 % (0-10); HEMATOCRIT 30 % (40-54); HEMOGLOBIN 10.1 G/DL (13.3-17.7); LYMPHOCYTES # (AUTO) 0.7 X 10^3 (1.0-4.0); LYMPHOCYTES % (AUTO) 27 % (12-44); MEAN CORPUSCULAR HEMOGLOBIN 32 PG (25-34); MEAN CORPUSCULAR HGB CONC 34 G/DL (32-36); MEAN CORPUSCULAR VOLUME 93 FL (80-99); MEAN PLATELET VOLUME 9.2 FL (7.4-10.4); MONOCYTES # (AUTO) 0.2 X 10^3 (0.0-1.0); MONOCYTES % (AUTO) 6 % (0-12); NEUTROPHILS # (AUTO) 1.6 X 10^3 (1.8-7.8); NEUTROPHILS % (AUTO) 64 % (42-75); PLATELET COUNT 245 10^3/uL (130-400); RED CELL DISTRIBUTION WIDTH 13.2 % (10.0-14.5); WHITE BLOOD COUNT 2.5 10^3/uL (4.3-11.0)
[2019-05-21] MEDS: inSUlin ASPART (NovoLOG) 1 UNIT/0.01 ML (CHARGE PER UNIT) SC SCH (07:25)
[2019-05-21 07:27] LABS: BUN/CREATININE RATIO 16; CALCIUM 9.1 MG/DL (8.5-10.1); CARBON DIOXIDE 22 MMOL/L (21-32); CHLORIDE 103 MMOL/L (98-107); CREATININE SERUM 0.75 MG/DL (0.60-1.30); GFR ESTIMATED > 60; GLUCOSE 93 MG/DL (70-105); POTASSIUM 3.9 MMOL/L (3.6-5.0); SODIUM 137 MMOL/L (135-145)
[2019-05-21 08:00] VITALS: BP 162/79
[2019-05-21] MEDS: ENOXAPARIN 40 MG/0.4 ML (LOVENOX) SYR SC SCH (08:27)
[2019-05-21] MEDS: HYDROCHLOROTHIAZIDE 12.5 MG (HCTZ) CAP PO SCH (08:27)
[2019-05-21] MEDS: meTOprolol TARTRATE 50 MG (LOPRESSOR) TAB PO SCH (08:28)
[2019-05-21] MEDS: ACYCLOVIR 400 MG TABLET (ZOVIRAX) PO SCH (08:28)
[2019-05-21] MEDS: ALLOPURINOL 300 MG (ZYLOPRIM) TAB PO SCH (08:28)
[2019-05-21] MEDS: ASPIRIN E.C. 81 MG (ECOTRIN) TAB PO SCH (08:28)
[2019-05-21] MEDS: amLODIPine 5 MG (NORVASC) TAB PO SCH (08:28)
[2019-05-21] MEDS: lisINopril 20 MG (PRINIVIL) TABLET PO SCH (08:28)
--- NOTE | 2019-05-21 10:41 | Physician Query Clarification ---
PQ-Uncertain Diagnosis Admission/Discharge Admission Date: May 18, 2019 at 17:42 Discharge Date: The medical record reflects the following clinical scenario: History/Risk Factors: Diabetes type 2 with foot ulcers Diabetic peripheral neuropathy Clinical Findings:05/17 xray left foot impression: There are degenerative changes at the metatarsophalangeal joint of the great toe with no acute abnormality evident. Treatment:IV Vancomycin HCI and Piperacillin Sod/Tazobactam Sod 4.5 gm/Sodium Chloride. Question: Is Osteomyelitis of toe of left foot a clinically valid diagnosis? Osteomyelitis of toe of left foot was documented in the ED impression- Ezekiel Cohen APRN with no further documentation in the medical record. Please document a response in Progress Note or Discharge Summary. 1. Yes, clinically valid, condition resolved. 2. No, condition ruled out. 3. Other, with explanation of clinical findings. 4. Undetermined, no explanation for clinical findings. PHYSICIAN RESPONSE Diagnosis clinically valid: No, conditon ruled out Please remember a lack of response to the above will prompt a phone page by CDI/Coding staff. In responding to this query, please exercise your independent professional judgment. The purpose of this communication is to more accurately reflect the complexity of your patients condition. The fact that a question is asked does not imply that any particular answer is desired or expected. Thank you for your timely response to this clarification. Requestors name: Soni Valera [facility] Phone # ext [phone] or [phone] THIS PHYSICIAN QUERY FORM IS A PERMANENT PART OF THE MEDICAL RECORD SONI VALERA May 21, 2019 10:41 NAIF TRAYLOR MD May 21, 2019 22:39
--- NOTE | 2019-05-21 11:59 | Discharge Summary ---
Diagnosis/Chief Complaint Date of Admission May 18, 2019 at 17:42 Date of Discharge 05/21/19 Admission Diagnosis Admission Diagnosis See Problem List Discharge Diagnosis See Below Problems/Diagnosis: (1) Diabetic ulcer of left foot Assessment & Plan: 05/19: Continue IV antibiotics, Surgery consulted and appreciate recommendations 05/20: Transitioned to PO antibiotics Augmentin to cover DM foot wound Qualifiers: Qualified Codes: E11.621 - Type 2 diabetes mellitus with foot ulcer; L97.529 - Non-pressure chronic ulcer of other part of left foot with unspecified severity Status: Acute (2) Cellulitis of left lower extremity Assessment & Plan: 05/20: Swelling and redness much improved upon discharge Status: Acute (3) Lymphadenopathy Assessment & Plan: 05/19: Patient with h/o CLL under treatment, reactive LA vs superficial phlebitis, Doppler US today w/o blood clots noted 05/20: Will follow resolution with antibiotics, if LN remain enlarge consider bx Status: Chronic (4) Leukopenia Qualifiers: Qualified Codes: D70.1 - Agranulocytosis secondary to cancer chemotherapy; T45.1X5A - Adverse effect of antineoplastic and immunosuppressive drugs, initial encounter Status: Chronic (5) Normocytic anemia Assessment & Plan: 05/19: at baseline Status: Chronic (6) Insulin dependent diabetes mellitus with complications Assessment & Plan: 05/19: Continue home insulin, A1c pending, SSI, accuchecks Status: Chronic (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 (8) Insulin dependent diabetes mellitus with retinopathy Status: Chronic (9) HTN (hypertension) Assessment & Plan: 05/19: Continue home meds Qualifiers: Qualified Codes: I10 - Essential (primary) hypertension Status: Chronic (10) CLL (chronic lymphocytic leukemia) Assessment & Plan: 05/19: Currently under treatment Status: Chronic (11) DVT prophylaxis Assessment & Plan: - Lovenox Status: Chronic Discharge Summary-Simple/Stand Consultations Dr Newman: General Surgery Discharge Physical Examination Allergies: Coded Allergies: No Known Drug Allergies (Unverified , 04/18/18) Vitals & I&Os Vital Sign - Last 12Hours Date Time Temp Pulse Resp B/P (MAP) Pulse Ox O2 Delivery O2 Flow Rate FiO2 05/21/19 08:00 36.6 82 20 162/79 (106) 98 Room Air Intake and Output 05/21/19 00:00 Intake Total 2276 ml Balance 2276 ml General Appearance: Alert, Oriented X3, Cooperative, No Acute Distress HEENT: Mucous Memb Moist/[place] Respiratory: Clear to Auscultation, Normal Air Movement Cardiovascular: Regular Rate, No Murmurs Abdominal: Normal Bowel Sounds, Soft, No Tenderness, No Masses Extremities: Other (2+ pitting edemaL>R, Left LN palpable in groin and popliteal, mild ttp) Neuro: Normal Speech, Strength at 5/5 X4 Ext, Sensation Intact, Cranial Nerves 3-12 NL Hospital Course Was the Problem List Reviewed?: Yes See final discharge diagnosis. Discussion & Recommendations 69 yo M with DM foot wound that presented with worsening erythema and swelling of LLE with palpable LNs. Dr Newman with general surgery was consulted and following case. Patient will need to follow with wound care. Will be discharged on antibiotics to cover for DM foot wounds. If patient continues to have large palpable LN upon completion and antibiotics then would consider LN bx given patient's h/o CLL. Discharge Condition at discharge stable Instructions to patient/family Please see electronic discharge instructions given to patient. Discharge Medications Reviewed and agree with Discharge Medication list on patient's Discharge Instruction sheet Clinical Quality Measures DVT/VTE Risk/Contraindication: Risk Factor Score Per Nursin RFS Level Per Nursing on Admit: 4+=Very High Copy Copies To 1: Valente TOSCANO HOLLY R MD May 21, 2019 11:59
[2019-05-21] MEDS ORDERED: AMOX-358 PO (12:01)
--- NOTE | 2019-05-21 12:02 | Discharge Summary ---
Discharge [facility] Reconcile Patient Problems Problems Reviewed?: Yes Discharge Medications New, Converted or Re-Newed RX: Transmitted to Pharmacy New Medications: Amoxicillin/Potassium Clav (Augmentin 875-125 Tablet) 1 Each Tablet 1 EACH PO BID for 14 Days, #28 TAB Continued Medications: Acyclovir (Acyclovir) 800 Mg Tablet 800 MG PO BID, TAB Amlodipine Besylate (Amlodipine Besylate) 5 Mg Tablet 5 MG PO DAILY, TAB Aspirin (Aspir 81) 81 Mg Tablet.dr 81 MG PO DAILY, TAB Glimepiride (Glimepiride) 4 Mg Tablet 4 MG PO BID, TAB Insulin Aspart (Novolog Flexpen) 300 Units/3 Ml Solution 15 UNITS SQ BID WITH MEALS, EA FILLED 12-24-2018 #10 PENS/100 DAY SUPPLY Insulin Detemir (Levemir Flextouch) 100 Unit/1 Ml Insuln.pen 48 UNIT SQ BID, EA Krill/Om-3/Dha/Epa/Phospho/Ast (Megared Weston-3 Krill Oil Sfgl) 1 Each Capsule 1 CAP PO DAILY, CAP Lisinopril/Hydrochlorothiazide (Lisinopril-Hctz 20-12.5 mg Tab) 1 Each Tablet 1 TAB PO BID, TAB Lovastatin (Lovastatin) 20 Mg Tablet 20 MG PO DAILY, TAB Metformin HCl (Metformin HCl) 1,000 Mg Tablet 1000 MG PO BID, TAB Metoprolol Tartrate (Metoprolol Tartrate) 50 Mg Tablet 50 MG PO BID, TAB Discontinued Medications: Levofloxacin (Levofloxacin) 500 Mg Tablet 500 MG PO DAILY FILLED 05-15-2019 #10/10 DAY SUPPLY Patient Instructions Goal/Follow Up Appt: F/u with Valente Byrne next week. Activity & Diet Discharge Diet: ADA Diet, Cardiac Diet Activity as Tolerated: Yes NAIF TRAYLOR MD May 21, 2019 12:02
[2019-05-21 12:04] VITALS: BP 187/74
[2019-05-21 15:25] VITALS: BP 187/74
--- NOTE | 2019-05-21 15:25 | NUR ---
SORAYA VAZQUEZ demonstrates understanding of discharge instructions and accurately returns instructions upon questioning. Copy of Post-Discharge Instructions given to PT. SORAYA VAZQUEZ is able to manage continuing needs after discharge. Patients belongings returned to PT. Patient discharged from [facility] on 05/21/19 at 1525. SORAYA VAZQUEZ left floor via W/C, accompanied by STAFF AND FAMILY PER AUTO.
--- NOTE | 2019-05-21 21:49 | Progress Note - Surgery ---
Subjective Date Seen by a Provider: May 20, 2019 Time Seen by a Provider: 19:21 Subjective/Events-last exam (late entry for 05/20/2019) Patient c redness and some swelling going down on left lower extremity. No drainage from left great toe. Mass on left thigh improved slightly. No new complaints. Denies n/v fever sweats chills shorntess of breath or chest pain. U/s No findings of hemodynamically significant left lower extremity arterial stenosis or segmental occlusion, reported lymphadenopathy. Objective Exam Vital Signs Date Time Temp Pulse Resp B/P (MAP) Pulse Ox O2 Delivery O2 Flow Rate FiO2 05/21/19 15:25 36.3 86 20 187/74 98 Room Air 05/21/19 12:04 36.3 86 20 187/74 (111) 98 Room Air 05/21/19 08:00 98 Room Air 05/21/19 08:00 36.6 82 20 162/79 (106) 98 Room Air 05/21/19 04:55 36.6 75 18 161/72 (101) 98 Room Air 05/21/19 00:00 36.9 73 16 155/70 (98) 97 Room Air I & O 05/21/19 07:00 Intake Total 2426 ml Balance 2426 ml Capillary Refill : Less Than 3 SecondsLess Than 3 Seconds General Appearance: No Apparent Distress HEENT: PERRL/EOMI, TMs Normal Neck: Full Range of Motion, Normal Inspection Respiratory: Chest Non Tender, No Accessory Muscle Use, No Respiratory Distress Cardiovascular: Regular Rate, Rhythm Gastrointestinal: non tender, soft, no organomegaly Extremity: Swelling (erythema left lower extremity, less left great toe with ulceration plantar aspect. small eschar), Other (mass medial thigh) Neurologic/Psychiatric: Alert, Oriented x3, Sensory Deficit (left lower extremity) Skin: No Normal Color; Erythema (less), Other Lymphatic: No No Adenopathy Results Lab Laboratory Tests 05/21/19 06:23: Glucometer 99 05/21/19 06:32: White Blood Count 2.5L, Red Blood Count 3.20L, Hemoglobin 10.1L, Hematocrit 30L, Mean Corpuscular Volume 93, Mean Corpuscular Hemoglobin 32, Mean Corpuscular Hemoglobin Concent 34, Red Cell Distribution Width 13.2, Platelet Count 245, Mean Platelet Volume 9.2, Neutrophils (%) (Auto) 64, Lymphocytes (%) (Auto) 27, Monocytes (%) (Auto) 6, Eosinophils (%) (Auto) 2, Basophils (%) (Auto) 0, Neutrophils # (Auto) 1.6L, Lymphocytes # (Auto) 0.7L, Monocytes # (Auto) 0.2, Eosinophils # (Auto) 0.1, Basophils # (Auto) 0.0, Sodium Level 137, Potassium Level 3.9, Chloride Level 103, Carbon Dioxide Level 22, Anion Gap 12, Blood Urea Nitrogen 12, Creatinine 0.75, Estimat Glomerular Filtration Rate > 60, BUN/Creatinine Ratio 16, Glucose Level 93, Calcium Level 9.1 05/21/19 11:25: Glucometer 158H Microbiology 05/18/19 Blood Culture - Preliminary, Resulted No growth 05/18/19 Gram Stain - Final, Complete 05/18/19 Wound Culture - Final, Complete Staphylococcus aureus Assessment/Plan Assessment/Plan Assessment/Plan Cellulitis of left Lower Extremity Left Great Toe Wound Mass- Left Thigh likely lymphadenopathy CLL continues to improve continue abx no surgical intervention at this time will follow possibly home tomorrow Clinical Quality Measures DVT/VTE Risk/Contraindication: Risk Factor Score Per Nursin RFS Level Per Nursing on Admit: 4+=Very High HARINDER WYNN DO May 21, 2019 21:49
--- NOTE | 2019-05-21 22:04 | Progress Note - Surgery ---
Subjective Date Seen by a Provider: May 21, 2019 Time Seen by a Provider: 11:36 Subjective/Events-last exam Patient leg still improving minimal erythema, feeling better. Mass left leg feeling better. Wanting to go home. No new complaints. Denies n/v fever sweats chills shortness of breath or chest pain. Objective Exam Vital Signs Date Time Temp Pulse Resp B/P (MAP) Pulse Ox O2 Delivery O2 Flow Rate FiO2 05/21/19 15:25 36.3 86 20 187/74 98 Room Air 05/21/19 12:04 36.3 86 20 187/74 (111) 98 Room Air 05/21/19 08:00 98 Room Air 05/21/19 08:00 36.6 82 20 162/79 (106) 98 Room Air 05/21/19 04:55 36.6 75 18 161/72 (101) 98 Room Air 05/21/19 00:00 36.9 73 16 155/70 (98) 97 Room Air I & O 05/21/19 07:00 Intake Total 2426 ml Balance 2426 ml Capillary Refill : Less Than 3 SecondsLess Than 3 Seconds General Appearance: No Apparent Distress HEENT: PERRL/EOMI, TMs Normal Neck: Full Range of Motion, Normal Inspection Respiratory: Chest Non Tender, No Accessory Muscle Use, No Respiratory Distress Cardiovascular: Regular Rate, Rhythm Gastrointestinal: non tender, soft, no organomegaly Extremity: Swelling (erythema left lower extremity, minimal left great toe with ulceration plantar aspect. eschar dried), Other (mass medial thigh) Neurologic/Psychiatric: Alert, Oriented x3, Sensory Deficit (left lower extremity) Skin: No Normal Color; Erythema (minimal) Lymphatic: No No Adenopathy Results Lab Laboratory Tests 05/21/19 06:23: Glucometer 99 05/21/19 06:32: White Blood Count 2.5L, Red Blood Count 3.20L, Hemoglobin 10.1L, Hematocrit 30L, Mean Corpuscular Volume 93, Mean Corpuscular Hemoglobin 32, Mean Corpuscular Hemoglobin Concent 34, Red Cell Distribution Width 13.2, Platelet Count 245, Mean Platelet Volume 9.2, Neutrophils (%) (Auto) 64, Lymphocytes (%) (Auto) 27, Monocytes (%) (Auto) 6, Eosinophils (%) (Auto) 2, Basophils (%) (Auto) 0, Neutrophils # (Auto) 1.6L, Lymphocytes # (Auto) 0.7L, Monocytes # (Auto) 0.2, Eosinophils # (Auto) 0.1, Basophils # (Auto) 0.0, Sodium Level 137, Potassium Level 3.9, Chloride Level 103, Carbon Dioxide Level 22, Anion Gap 12, Blood Urea Nitrogen 12, Creatinine 0.75, Estimat Glomerular Filtration Rate > 60, BUN/Creatinine Ratio 16, Glucose Level 93, Calcium Level 9.1 05/21/19 11:25: Glucometer 158H Microbiology 05/18/19 Blood Culture - Preliminary, Resulted No growth 05/18/19 Gram Stain - Final, Complete 05/18/19 Wound Culture - Final, Complete Staphylococcus aureus Assessment/Plan Assessment/Plan Assessment/Plan Cellulitis of left Lower Extremity Left Great Toe Wound Mass- Left Thigh likely lymphadenopathy CLL convert to oral abx no surgical intervention okay to ia home from surgial standpoint Clinical Quality Measures DVT/VTE Risk/Contraindication: Risk Factor Score Per Nursin RFS Level Per Nursing on Admit: 4+=Very High HARINDER WYNN DO May 21, 2019 22:04
== END 2019-05-21 15:25 | disposition home or self-care (01) | DRG 603 ==
LOC: EDUNIT# 17:11 → ER 17:13 → 4TH 17:42
PROVIDERS: ADMIT Internal Medicine; ATTEND Internal Medicine
DX: L03.116 Cellulitis of left lower limb (principal); E11.621 Type 2 diabetes mellitus with foot ulcer; C91.10 Chronic lymphocytic leukemia of B-cell type not having achieved remission; Z68.41 Body mass index [BMI] 40.0-44.9, adult; L97.529 Non-pressure chronic ulcer of other part of left foot with unspecified severity; E11.42 Type 2 diabetes mellitus with diabetic polyneuropathy; E11.319 Type 2 diabetes mellitus with unspecified diabetic retinopathy without macular edema; R22.9 Localized swelling, mass and lump, unspecified; I10 Essential (primary) hypertension; M19.91 Primary osteoarthritis, unspecified site; E66.9 Obesity, unspecified; D64.9 Anemia, unspecified; D70.1 Agranulocytosis secondary to cancer chemotherapy; T45.1X5A Adverse effect of antineoplastic and immunosuppressive drugs, initial encounter; Z79.899 Other long term (current) drug therapy; Z96.653 Presence of artificial knee joint, bilateral
CPT/HCPCS: 36415; 73630; 80048; 80053; 82962; 83036; 83605; 85007; 85025; 85027; 85610; 85652; 87040; 87070; 87077; 87186; 87205; 93926

== ENCOUNTER 2019-08-12 09:18 | Outpatient (RCR) | payer MEDICARE, OTHER ==
[2019-06-17 09:02] LABS: BASOPHILS % (AUTO) 1 % (0-10); EOSINOPHILS # (AUTO) 0.2 10^3/uL (0.0-0.3); EOSINOPHILS % (AUTO) 5 % (0-10); HEMATOCRIT 34 % (40-54); HEMOGLOBIN 11.3 G/DL (13.3-17.7); LYMPHOCYTES # (AUTO) 1.5 X 10^3 (1.0-4.0); LYMPHOCYTES % (AUTO) 35 % (12-44); MEAN CORPUSCULAR HEMOGLOBIN 31 PG (25-34); MEAN CORPUSCULAR HGB CONC 34 G/DL (32-36); MEAN CORPUSCULAR VOLUME 92 FL (80-99); MEAN PLATELET VOLUME 9.2 FL (7.4-10.4); MONOCYTES # (AUTO) 0.2 X 10^3 (0.0-1.0); MONOCYTES % (AUTO) 5 % (0-12); NEUTROPHILS # (AUTO) 2.4 X 10^3 (1.8-7.8); NEUTROPHILS % (AUTO) 55 % (42-75); PLATELET COUNT 209 10^3/uL (130-400); RED CELL DISTRIBUTION WIDTH 13.9 % (10.0-14.5); WHITE BLOOD COUNT 4.4 10^3/uL (4.3-11.0)
[2019-06-17 09:13] LABS: ALBUMIN 3.9 GM/DL (3.2-4.5)
[2019-06-17 09:14] LABS: CHLORIDE 103 MMOL/L (98-107); POTASSIUM 4.2 MMOL/L (3.6-5.0); SODIUM 136 MMOL/L (135-145)
[2019-06-17 09:15] LABS: CALCIUM 8.7 MG/DL (8.5-10.1)
[2019-06-17 09:16] LABS: GLUCOSE 165 MG/DL (70-105); TOTAL PROTEIN 6.2 GM/DL (6.4-8.2)
[2019-06-17 09:17] LABS: CARBON DIOXIDE 24 MMOL/L (21-32)
[2019-06-17 09:18] LABS: BILIRUBIN,TOTAL 0.5 MG/DL (0.1-1.0)
[2019-06-17 09:19] LABS: ALKALINE PHOSPHATASE 102 U/L (40-136)
[2019-06-17 09:20] LABS: CREATININE SERUM 0.81 MG/DL (0.60-1.30); GFR ESTIMATED > 60
[2019-06-17 09:21] LABS: BUN/CREATININE RATIO 19
[2019-06-17 09:23] LABS: ALANINE AMINOTRANSFERASE 15 U/L (0-55)
[~2019-08-12 09:18] MED LIST changes: +ACETAMINOPHEN 500 MG TAB (TYLENOL) CANCER CTR PO PRN; +NS IV 1000 ML (CANCER CTR) IV SCH; +NS IV SCH; +[UNRECOGNIZED DRUG - OTHER] IV SCH; +diphenhydrAMINE 50 MG/ML INJ (CANCER CENTER) IV PRN; +methylPREDNISolone 125 MG/2 ML (SOLU-MEDROL) CANCER CTR IV SCH
[2019-08-12 09:31] LABS: BASOPHILS % (AUTO) 1 % (0-10); EOSINOPHILS # (AUTO) 0.1 10^3/uL (0.0-0.3); EOSINOPHILS % (AUTO) 3 % (0-10); HEMATOCRIT 33 % (40-54); HEMOGLOBIN 10.8 G/DL (13.3-17.7); LYMPHOCYTES % (AUTO) 29 % (12-44); MEAN CORPUSCULAR HEMOGLOBIN 30 PG (25-34); MEAN CORPUSCULAR HGB CONC 33 G/DL (32-36); MEAN CORPUSCULAR VOLUME 91 FL (80-99); MEAN PLATELET VOLUME 9.5 FL (7.4-10.4); MONOCYTES # (AUTO) 0.4 X 10^3 (0.0-1.0); MONOCYTES % (AUTO) 10 % (0-12); NEUTROPHILS % (AUTO) 57 % (42-75); PLATELET COUNT 191 10^3/uL (130-400); RED CELL DISTRIBUTION WIDTH 14.6 % (10.0-14.5); WHITE BLOOD COUNT 3.6 10^3/uL (4.3-11.0)
[2019-08-12 09:51] LABS: ALANINE AMINOTRANSFERASE 18 U/L (0-55); ALBUMIN 3.8 GM/DL (3.2-4.5); ALKALINE PHOSPHATASE 103 U/L (40-136); BILIRUBIN,TOTAL 0.5 MG/DL (0.1-1.0); BUN/CREATININE RATIO 21; CALCIUM 8.7 MG/DL (8.5-10.1); CARBON DIOXIDE 22 MMOL/L (21-32); CHLORIDE 104 MMOL/L (98-107); CREATININE SERUM 1.02 MG/DL (0.60-1.30); GFR ESTIMATED > 60; GLUCOSE 146 MG/DL (70-105); POTASSIUM 4.1 MMOL/L (3.6-5.0); SODIUM 135 MMOL/L (135-145); TOTAL PROTEIN 5.5 GM/DL (6.4-8.2)
== END 2019-09-15 | disposition home or self-care (01) ==
LOC: ONC 09:18
PROVIDERS: ATTEND Internal Medicine Hematology & Oncology
DX: Z51.11 Encounter for antineoplastic chemotherapy (principal); C91.10 Chronic lymphocytic leukemia of B-cell type not having achieved remission; D64.9 Anemia, unspecified; E11.9 Type 2 diabetes mellitus without complications; I10 Essential (primary) hypertension; Z79.82 Long term (current) use of aspirin; Z79.4 Long term (current) use of insulin; Z79.899 Other long term (current) drug therapy; Z96.653 Presence of artificial knee joint, bilateral; Z98.890 Other specified postprocedural states
CPT/HCPCS: 80053; 83615; 85025; 96375; 96413; 96415; G0463; 36591; 96376

== ENCOUNTER 2019-12-02 08:42 | Outpatient (RCR) | payer MEDICARE, OTHER ==
[2019-10-07 08:52] LABS: BASOPHILS % (AUTO) 1 % (0-10); EOSINOPHILS # (AUTO) 0.2 10^3/uL (0.0-0.3); EOSINOPHILS % (AUTO) 4 % (0-10); HEMATOCRIT 34 % (40-54); HEMOGLOBIN 11.5 G/DL (13.3-17.7); LYMPHOCYTES # (AUTO) 1.9 X 10^3 (1.0-4.0); LYMPHOCYTES % (AUTO) 40 % (12-44); MEAN CORPUSCULAR HEMOGLOBIN 31 PG (25-34); MEAN CORPUSCULAR HGB CONC 34 G/DL (32-36); MEAN CORPUSCULAR VOLUME 91 FL (80-99); MEAN PLATELET VOLUME 8.7 FL (7.4-10.4); MONOCYTES # (AUTO) 0.4 X 10^3 (0.0-1.0); MONOCYTES % (AUTO) 9 % (0-12); NEUTROPHILS # (AUTO) 2.2 X 10^3 (1.8-7.8); NEUTROPHILS % (AUTO) 47 % (42-75); PLATELET COUNT 198 10^3/uL (130-400); WHITE BLOOD COUNT 4.8 10^3/uL (4.3-11.0)
[2019-10-07 09:09] LABS: ALANINE AMINOTRANSFERASE 21 U/L (0-55); ALBUMIN 4.1 GM/DL (3.2-4.5); ALKALINE PHOSPHATASE 93 U/L (40-136); BILIRUBIN,TOTAL 0.5 MG/DL (0.1-1.0); BUN/CREATININE RATIO 24; CALCIUM 9.1 MG/DL (8.5-10.1); CARBON DIOXIDE 23 MMOL/L (21-32); CHLORIDE 105 MMOL/L (98-107); CREATININE SERUM 0.83 MG/DL (0.60-1.30); GFR ESTIMATED > 60; GLUCOSE 87 MG/DL (70-105); POTASSIUM 3.9 MMOL/L (3.6-5.0); SODIUM 137 MMOL/L (135-145); TOTAL PROTEIN 6.2 GM/DL (6.4-8.2)
[~2019-12-02 08:42] MED LIST changes: +AMLO-250 PO; -AMLO5TAB9 PO; -LISI1TAB25 PO; +LISI1TAB46 PO
[2019-12-02 09:03] LABS: BASOPHILS % (AUTO) 1 % (0-10); EOSINOPHILS # (AUTO) 0.1 10^3/uL (0.0-0.3); EOSINOPHILS % (AUTO) 4 % (0-10); HEMATOCRIT 33 % (40-54); HEMOGLOBIN 11.3 g/dL (13.3-17.7); LYMPHOCYTES # (AUTO) 1.3 10^3/uL (1.0-4.0); LYMPHOCYTES % (AUTO) 41 % (12-44); MEAN CORPUSCULAR HEMOGLOBIN 31 pg (25-34); MEAN CORPUSCULAR HGB CONC 34 g/dL (32-36); MEAN CORPUSCULAR VOLUME 92 fL (80-99); MEAN PLATELET VOLUME 9.4 fL (9.0-12.2); MONOCYTES # (AUTO) 0.2 10^3/uL (0.0-1.0); MONOCYTES % (AUTO) 7 % (0-12); NEUTROPHILS # (AUTO) 1.2 10^3/uL (1.8-7.8); NEUTROPHILS % (AUTO) 36 % (42-75); PLATELET COUNT 164 10^3/uL (130-400); WHITE BLOOD COUNT 3.3 10^3/uL (4.3-11.0)
[2019-12-02 09:28] LABS: ALANINE AMINOTRANSFERASE 23 U/L (0-55); ALKALINE PHOSPHATASE 103 U/L (40-136); BILIRUBIN,TOTAL 0.5 MG/DL (0.1-1.0); BUN/CREATININE RATIO 19; CARBON DIOXIDE 24 MMOL/L (21-32); CHLORIDE 102 MMOL/L (98-107); CREATININE SERUM 0.81 MG/DL (0.60-1.30); GFR ESTIMATED > 60; GLUCOSE 137 MG/DL (70-105); POTASSIUM 3.8 MMOL/L (3.6-5.0); SODIUM 135 MMOL/L (135-145); TOTAL PROTEIN 6.1 GM/DL (6.4-8.2)
== END 2020-01-05 | disposition home or self-care (01) ==
LOC: ONC 08:42
PROVIDERS: ATTEND Internal Medicine Hematology & Oncology
DX: Z51.11 Encounter for antineoplastic chemotherapy (principal); C91.10 Chronic lymphocytic leukemia of B-cell type not having achieved remission; D64.9 Anemia, unspecified; E11.9 Type 2 diabetes mellitus without complications; D63.0 Anemia in neoplastic disease; I10 Essential (primary) hypertension; Z79.82 Long term (current) use of aspirin; Z79.4 Long term (current) use of insulin; Z79.899 Other long term (current) drug therapy; Z96.653 Presence of artificial knee joint, bilateral; Z98.890 Other specified postprocedural states; Z92.21 Personal history of antineoplastic chemotherapy
CPT/HCPCS: 80053; 83615; 85025; 96375; 96376; 96413; 96415; G0463; 36591

== ENCOUNTER 2020-01-27 09:27 | Outpatient (RCR) | payer MEDICARE, OTHER ==
[~2020-01-27] VITALS: Ht 180.3 cm; Wt 136.1 kg
[~2020-01-27 09:27] MED LIST changes: -ACETAMINOPHEN 500 MG TAB (TYLENOL) CANCER CTR PO PRN; -NS IV 1000 ML (CANCER CTR) IV SCH; -NS IV SCH; -[UNRECOGNIZED DRUG - OTHER] IV SCH; -diphenhydrAMINE 50 MG/ML INJ (CANCER CENTER) IV PRN; -methylPREDNISolone 125 MG/2 ML (SOLU-MEDROL) CANCER CTR IV SCH
[2020-01-27 09:35] LABS: BASOPHILS % (AUTO) 1 % (0-10); EOSINOPHILS # (AUTO) 0.2 10^3/uL (0.0-0.3); EOSINOPHILS % (AUTO) 4 % (0-10); HEMATOCRIT 35 % (40-54); HEMOGLOBIN 11.6 g/dL (13.3-17.7); LYMPHOCYTES # (AUTO) 1.7 10^3/uL (1.0-4.0); LYMPHOCYTES % (AUTO) 40 % (12-44); MEAN CORPUSCULAR HEMOGLOBIN 30 pg (25-34); MEAN CORPUSCULAR HGB CONC 33 g/dL (32-36); MEAN CORPUSCULAR VOLUME 91 fL (80-99); MEAN PLATELET VOLUME 9.3 fL (9.0-12.2); MONOCYTES # (AUTO) 0.3 10^3/uL (0.0-1.0); MONOCYTES % (AUTO) 7 % (0-12); NEUTROPHILS # (AUTO) 1.8 10^3/uL (1.8-7.8); NEUTROPHILS % (AUTO) 42 % (42-75); PLATELET COUNT 212 10^3/uL (130-400); WHITE BLOOD COUNT 4.2 10^3/uL (4.3-11.0)
[2020-01-27 09:57] LABS: ALANINE AMINOTRANSFERASE 20 U/L (0-55); ALBUMIN 4.1 GM/DL (3.2-4.5); ALKALINE PHOSPHATASE 112 U/L (40-136); BILIRUBIN,TOTAL 0.6 MG/DL (0.1-1.0); BUN/CREATININE RATIO 17; CARBON DIOXIDE 24 MMOL/L (21-32); CHLORIDE 103 MMOL/L (98-107); CREATININE SERUM 0.92 MG/DL (0.60-1.30); GFR ESTIMATED > 60; GLUCOSE 110 MG/DL (70-105); POTASSIUM 4.2 MMOL/L (3.6-5.0); SODIUM 139 MMOL/L (135-145); TOTAL PROTEIN 6.5 GM/DL (6.4-8.2)
[2020-01-27] MEDS ORDERED: ACETAMINOPHEN 325 MG TAB (TYLENOL) CANCER CTR ONE (10:09)
[2020-01-27] MEDS ORDERED: diphenhydrAMINE 50 MG/ML INJ (CANCER CENTER) ONE (10:09)
[2020-01-27] MEDS ORDERED: ACETAMINOPHEN 500 MG TAB (TYLENOL) CANCER CTR PO PRN (10:15)
[2020-01-27] MEDS ORDERED: diphenhydrAMINE 25 MG TAB (BENADRYL) CANCER CENTER PO SCH (10:15)
[2020-01-27] MEDS ORDERED: RITUXIMAB-ABBS 500 MG, RITUXIMAB-ABBS 300 MG in NS (IVPB) CANCER CENTER 186 ML IV SCH (10:15)
[2020-01-27] MEDS ORDERED: NS IV 1000 ML (CANCER CTR) IV SCH (10:15)
== END 2020-03-13 10:16 | disposition home or self-care (01) ==
LOC: ONC 09:27
PROVIDERS: ATTEND Internal Medicine Hematology & Oncology
DX: Z51.11 Encounter for antineoplastic chemotherapy (principal); C91.10 Chronic lymphocytic leukemia of B-cell type not having achieved remission; E11.9 Type 2 diabetes mellitus without complications; D63.0 Anemia in neoplastic disease; I10 Essential (primary) hypertension; Z79.82 Long term (current) use of aspirin; Z79.4 Long term (current) use of insulin; Z79.899 Other long term (current) drug therapy; Z96.653 Presence of artificial knee joint, bilateral; Z98.890 Other specified postprocedural states; Z92.21 Personal history of antineoplastic chemotherapy
CPT/HCPCS: 80053; 83615; 85025; 96413; 96415; G0463; 36591

== ENCOUNTER 2020-05-18 09:42 | Outpatient (RCR) | payer MEDICARE, OTHER ==
[2020-03-23 09:30] LABS: BASOPHILS # (AUTO) 0.1 10^3/uL (0.0-0.1); BASOPHILS % (AUTO) 1 % (0-10); EOSINOPHILS # (AUTO) 0.4 10^3/uL (0.0-0.3); EOSINOPHILS % (AUTO) 9 % (0-10); HEMATOCRIT 33 % (40-54); LYMPHOCYTES # (AUTO) 1.8 10^3/uL (1.0-4.0); LYMPHOCYTES % (AUTO) 44 % (12-44); MEAN CORPUSCULAR HEMOGLOBIN 30 pg (25-34); MEAN CORPUSCULAR HGB CONC 33 g/dL (32-36); MEAN CORPUSCULAR VOLUME 90 fL (80-99); MEAN PLATELET VOLUME 9.6 fL (9.0-12.2); MONOCYTES # (AUTO) 0.2 10^3/uL (0.0-1.0); MONOCYTES % (AUTO) 5 % (0-12); NEUTROPHILS # (AUTO) 1.6 10^3/uL (1.8-7.8); NEUTROPHILS % (AUTO) 39 % (42-75); PLATELET COUNT 247 10^3/uL (130-400); WHITE BLOOD COUNT 4.1 10^3/uL (4.3-11.0)
[2020-03-23 09:59] LABS: ALANINE AMINOTRANSFERASE 21 U/L (0-55); ALBUMIN 3.8 GM/DL (3.2-4.5); ALKALINE PHOSPHATASE 96 U/L (40-136); BILIRUBIN,TOTAL 0.3 MG/DL (0.1-1.0); BUN/CREATININE RATIO 19; CALCIUM 8.6 MG/DL (8.5-10.1); CARBON DIOXIDE 24 MMOL/L (21-32); CHLORIDE 101 MMOL/L (98-107); CREATININE SERUM 0.83 MG/DL (0.60-1.30); GFR ESTIMATED > 60; GLUCOSE 126 MG/DL (70-105); POTASSIUM 4.3 MMOL/L (3.6-5.0); SODIUM 135 MMOL/L (135-145); TOTAL PROTEIN 6.2 GM/DL (6.4-8.2)
[~2020-05-18 09:42] MED LIST changes: +ACETAMINOPHEN 325 MG TAB (TYLENOL) CANCER CTR ONE; +ACETAMINOPHEN 500 MG TAB (TYLENOL) CANCER CTR PO PRN; +ACYC-112 PO; -ACYC800T PO; -CIPR500T4 PO; +CIPR500T5 PO; +NS IV 1000 ML (CANCER CTR) IV SCH; +RITUXIMAB-ABBS 500 MG, RITUXIMAB-ABBS 300 MG in NS (IVPB) CANCER CENTER 186 ML IV SCH; +diphenhydrAMINE 25 MG TAB (BENADRYL) CANCER CENTER PO SCH
[2020-05-18 10:17] LABS: BASOPHILS % (AUTO) 1 % (0-10); EOSINOPHILS # (AUTO) 0.1 10^3/uL (0.0-0.3); EOSINOPHILS % (AUTO) 3 % (0-10); HEMATOCRIT 36 % (40-54); LYMPHOCYTES # (AUTO) 2.5 10^3/uL (1.0-4.0); LYMPHOCYTES % (AUTO) 57 % (12-44); MEAN CORPUSCULAR HEMOGLOBIN 30 pg (25-34); MEAN CORPUSCULAR HGB CONC 33 g/dL (32-36); MEAN CORPUSCULAR VOLUME 91 fL (80-99); MEAN PLATELET VOLUME 10.1 fL (9.0-12.2); MONOCYTES # (AUTO) 0.3 10^3/uL (0.0-1.0); MONOCYTES % (AUTO) 7 % (0-12); NEUTROPHILS # (AUTO) 1.2 10^3/uL (1.8-7.8); NEUTROPHILS % (AUTO) 27 % (42-75); PLATELET COUNT 162 10^3/uL (130-400); WHITE BLOOD COUNT 4.4 10^3/uL (4.3-11.0)
[2020-05-18 10:33] LABS: ALANINE AMINOTRANSFERASE 28 U/L (0-55); ALBUMIN 4.2 GM/DL (3.2-4.5); ALKALINE PHOSPHATASE 113 U/L (40-136); BILIRUBIN,TOTAL 0.5 MG/DL (0.1-1.0); BUN/CREATININE RATIO 19; CARBON DIOXIDE 21 MMOL/L (21-32); CHLORIDE 104 MMOL/L (98-107); CREATININE SERUM 0.96 MG/DL (0.60-1.30); GFR ESTIMATED > 60; GLUCOSE 179 MG/DL (70-105); SODIUM 138 MMOL/L (135-145); TOTAL PROTEIN 6.6 GM/DL (6.4-8.2)
[2020-05-18] MEDS ORDERED: ACETAMINOPHEN 325 MG TAB (TYLENOL) CANCER CTR PO PRN (10:45)
== END 2020-06-21 | disposition home or self-care (01) ==
LOC: ONC 09:42
PROVIDERS: ATTEND Internal Medicine Hematology & Oncology
DX: Z51.11 Encounter for antineoplastic chemotherapy (principal); C91.10 Chronic lymphocytic leukemia of B-cell type not having achieved remission; E11.9 Type 2 diabetes mellitus without complications; D63.0 Anemia in neoplastic disease; I10 Essential (primary) hypertension; Z79.82 Long term (current) use of aspirin; Z79.4 Long term (current) use of insulin; Z79.899 Other long term (current) drug therapy; Z96.653 Presence of artificial knee joint, bilateral; Z98.890 Other specified postprocedural states; Z92.21 Personal history of antineoplastic chemotherapy
CPT/HCPCS: 80053; 83615; 85025; 96413; 96415; G0463; 36591

== ENCOUNTER → 2020-07-15 | Outpatient (CLI) | payer MEDICARE, OTHER ==
[~2020-07-15] MED LIST changes: -ACETAMINOPHEN 325 MG TAB (TYLENOL) CANCER CTR ONE; -ACETAMINOPHEN 500 MG TAB (TYLENOL) CANCER CTR PO PRN; +CATHETER FLUSH 10 ML SYR IV PRN; +HOLD METFORMIN - RECEIVED CONTRAST 20 ML VIAL IV SCH; +IOHEXOL 350 MG/ML 100 ML (OMNIPAQUE 350) VIAL IV ONE; +NS 100 ML (IVPB) BAG IV ONE; -NS IV 1000 ML (CANCER CTR) IV SCH; -RITUXIMAB-ABBS 500 MG, RITUXIMAB-ABBS 300 MG in NS (IVPB) CANCER CENTER 186 ML IV SCH; -diphenhydrAMINE 25 MG TAB (BENADRYL) CANCER CENTER PO SCH
--- NOTE | 2020-07-15 14:14 | Diagnostic Imaging Report ---
PROCEDURE: CT Neck, Chest Abdomen and Pelvis with contrast, Abdomen and Pelvis without. TECHNIQUE: Multiple contiguous axial images were obtained through the neck, chest, abdomen, and pelvis after the uneventful bolus administration of intravenous contrast. Precontrast acquisitions through the abdomen and pelvis were performed. Sagittal and coronal reformations are then performed. Auto Exposure Controls were utilized during the CT exam to meet ALARA standards for radiation dose reduction. INDICATION: Chronic lymphocytic leukemia. COMPARISON: Correlation is made with prior CT from 02/21/2019. FINDINGS: CT NECK: Visualized intracranial structures are unremarkable. There is opacification of bilateral ethmoid air cells. Moderate mucosal thickening of the right maxillary sinus and mild mucosal thickening of the left maxillary sinus is noted. Sphenoid sinus is clear. Mastoids are well aerated. Posterior nasopharynx and oropharynx are unremarkable. Epiglottis and larynx are unremarkable. No thyroid masses are seen. There are numerous enlarged lymph nodes throughout all stations of the neck. Lymph nodes appear to be increased when compared with prior CT. A left posterior chain lymph node measures 12 mm short axis compared with 8 mm. There is significant supraclavicular lymphadenopathy which appears increased. Short axis measurement on a medial left supraclavicular node is 21 mm compared with 17 mm. A right-sided supraclavicular node measures 21 mm compared with 15 mm. IMPRESSION: Significant increase in size and number of cervical lymph nodes throughout the neck when compared with prior examination from 02/21/2019. CT CHEST: A right chest wall port is in place. Bilateral axillary lymph nodes have increased in size. A dominant lymph node on the right is 33 mm compared with 25 mm. Left axillary node measures 16 mm short axis compared with 9 mm. Calcified lymph nodes in the mediastinum and chelsea are noted, consistent with prior granulomatous exposure. Overall size of the mediastinal and hilar nodes is similar to prior exam. There is no pericardial or pleural fluid identified. No pulmonary infiltrates, nodules, or masses are seen. There appears to be some scarring in the right lower lobe. IMPRESSION: Increase in bilateral axillary lymphadenopathy when compared with prior CT from 02/21/2019. CT ABDOMEN AND PELVIS: Portacaval lymph node has increased in size measuring 29 mm compared with 19 mm. There has been increase in size of central retroperitoneal lymph nodes. Baljinder mass anterior to the aorta at the level of the lower poles of the kidneys measures 30 mm compared with 19 mm. There are enlarged aortocaval and left periaortic nodes, all increased since prior exam. Bilateral iliac chain and obturator lymphadenopathy has increased significantly increased since prior exam. Bilateral inguinal lymphadenopathy has significantly increased since prior exam. Left inguinal dominant lymph node demonstrates short axis measurement of 38 mm compared with 15 mm. Liver is unremarkable. There appear to be small stones in the gallbladder. Pancreas and spleen are unremarkable. There is no adrenal mass. Kidneys are unremarkable. There is no ascites. Small and large bowel loops are normal in caliber. Bladder is unremarkable. IMPRESSION: Significant increase in abdominal and pelvic lymphadenopathy when compared with prior exam from 02/21/2019. Dictated by: Dictated on workstation # [id number]
== END ==
LOC: RAD 12:42
PROVIDERS: ATTEND Nurse Practitioner Adult Health
DX: C91.10 Chronic lymphocytic leukemia of B-cell type not having achieved remission (principal); R59.0 Localized enlarged lymph nodes
CPT/HCPCS: 70491; 71260; 74178

== ENCOUNTER 2020-07-22 11:23 | Outpatient (CLI) | payer MEDICARE, OTHER ==
[~2020-07-22] VITALS: Ht 180.3 cm; Wt 143.3 kg
[~2020-07-22 11:23] MED LIST changes: -FLUT9.9S NS
[2020-07-22] MEDS ORDERED: FLUT9.9S NS (13:26)
== END 2020-07-22 13:34 | disposition home or self-care (01) ==
LOC: PREOP 11:23
PROVIDERS: ATTEND Surgery
DX: Z01.818 Encounter for other preprocedural examination (principal)

== ENCOUNTER → 2020-07-22 | Outpatient (CLI) | payer MEDICARE, OTHER ==
[~2020-07-22] MED LIST changes: -CATHETER FLUSH 10 ML SYR IV PRN; +FLUT9.9S NS; -HOLD METFORMIN - RECEIVED CONTRAST 20 ML VIAL IV SCH; -IOHEXOL 350 MG/ML 100 ML (OMNIPAQUE 350) VIAL IV ONE; -NS 100 ML (IVPB) BAG IV ONE
== END ==
LOC: CARD 09:30
PROVIDERS: ATTEND Internal Medicine Hematology & Oncology
DX: C91.10 Chronic lymphocytic leukemia of B-cell type not having achieved remission (principal); I51.7 Cardiomegaly; I34.0 Nonrheumatic mitral (valve) insufficiency
CPT/HCPCS: 93306

== ENCOUNTER 2020-07-23 08:13 | Day surgery (SDC) | payer MEDICARE, OTHER ==
[~2020-07-23] VITALS: Ht 180 cm; Wt 143.3 kg
[2020-07-23] VITALS (9 sets, daily range): BP systolic 107–164; BP diastolic 56–76
[~2020-07-23 08:13] MED LIST changes: +FLUT9.9S NS
[2020-07-23] MEDS ORDERED: LIDOCAINE/EPI 1%-1:100,000 (XYLOCAINE) 20ML ONE (08:17)
--- NOTE | 2020-07-23 08:22 | Progress Note-Pre Operative ---
Pre-Operative Progress Note H&P Reviewed The H&P was reviewed, patient examined and no changes noted. Date Seen by Provider: July 23, 2020 Time Seen by Provider: 08:21 Date H&P Reviewed: July 23, 2020 Time H&P Reviewed: 08:21 Pre-Operative Diagnosis: cervical lymphadenopathy left HARINDER WYNN DO July 23, 2020 08:22
[2020-07-23] MEDS ORDERED: ceFAZolin 2 GM IV Premixed 50 ML IV ONE (08:30)
[2020-07-23] MEDS ORDERED: LACTATED RINGERS 1,000 ML IV PRN (08:30)
[2020-07-23] MEDS ORDERED: MIDAZOLAM 2 MG/2 ML (VERSED) VIAL ONE (08:45)
[2020-07-23] MEDS ORDERED: fentaNYL INJ 100 MCG/2 ML AMP ONE ×2 (08:45→09:05)
[2020-07-23] MEDS ORDERED: SEVOFLURANE (ULTANE) 15 ML INHAL SOLN ONE (09:05)
[2020-07-23] MEDS ORDERED: LIDOCAINE PF 2% 5 ML (XYLOCAINE) VIAL ONE (09:05)
[2020-07-23] MEDS ORDERED: proPOfol 200 MG/20 ML (DIPRIVAN) VIAL IV ONE (09:05)
--- NOTE | 2020-07-23 09:49 | Discharge Inst-Simple/Standard ---
Discharge Inst-Standard Discharge Medications New, Converted or Re-Newed RX: RX on Chart Patient Instructions/Follow Up Plan of Care/Instructions/FU: 2 weeks Trent ( suture removal) Activity as Tolerated: Yes Discharge Diet: Regular Diet Other Inst to Patient Follow up Appt: Make appointment for 2 week. Instructions: No lifting greater than 20 pounds. No strenuous activity. May shower in 24 hours, no tub bath or soaking. Use incentive spirometer at home as directed. No Smoking Skin/Wound Care: Keep area clean and dry. Symptoms to Report: Appetite Changes, Extremity Discoloration, Numbness/Tingling, Swelling Increased, Bleeding Excessive, Eyesight Changes, Pain Increased, Urine Color Change, Constipation(Persistent), Fever over 101 degree F, Pain/Pressure in chest, Urinating Difficulty, Cough Up/Vomit Blood, Heart Beat Irreg/Pounding, Pain/Pressure in jaw, Vaginal Bleeding Increase, Cramps in feet or legs, Light headedness, Pain/Pressure in shoulder, Diarrhea(Persistent), Memory Changes Suddenly, Questions/Concerns, Weight gain consecutive days, Dizziness/Fainting, Nausea/Vomiting, Shortness of Breath, Weight gain over 2 pounds If questions or concerns contact your physician Or seek help at emergency department. HARINDER WYNN DO July 23, 2020 09:49
--- NOTE | 2020-07-23 09:50 | Progress Note-Post Operative ---
Post-Operative Progess Note Surgeon (s)/Saddle Lining Stitcher (s) Surgeon HARINDER WYNN DO Saddle Lining Stitcher: na Pre-Operative Diagnosis cervical lymphadenopathy left Post-Operative Diagnosis same Procedure & Operative Findings Date of Procedure 07/23/20 Procedure Performed/Findings excision of left neck mass Anesthesia Type general Estimated Blood Loss Estimated blood loss (mL): minimal Specimens/Packing Specimens Removed left neck mass HARINDER WYNN DO July 23, 2020 09:50
[2020-07-23] MEDS ORDERED: ONDANSETRON 4 MG/2 ML (SDV) Z0FRAN IVP PRN (10:00)
[2020-07-23] MEDS ORDERED: morphine INJ 10 MG/ML 1ML (SYR OR VIAL) IVP ONE (10:00)
--- NOTE | 2020-07-23 11:07 | Anesthesia-General Post-Op ---
General Patient Condition Mental Status/LOC: Same as Preop Cardiovascular: Satisfactory Nausea/Vomiting: Absent Respiratory: Satisfactory Pain: Controlled Complications: Absent Post Op Complications Complications None Follow Up Care/Instructions Patient Instructions None needed. Anesthesia/Patient Condition Patient Condition Patient is doing well, no complaints, stable vital signs, no apparent adverse anesthesia problems. CAROLINA WHITMORE DO July 23, 2020 11:06
--- NOTE | 2020-07-23 22:04 | OPERATIVE REPORT ---
DATE OF SERVICE: 07/23/2020 PREOPERATIVE DIAGNOSIS: Left neck mass. POSTOPERATIVE DIAGNOSIS: Left neck mass. PROCEDURE: Excision of left neck mass. SURGEON: Harinder Newman DO ANESTHESIA: General. ESTIMATED BLOOD LOSS: Minimal. COMPLICATIONS: None. 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 He has new neck mass and was recommended excision node biopsy. He understands risks and benefits and wishes to proceed. Consent was signed in the chart. DESCRIPTION OF PROCEDURE: The patient was taken to the operating suite, was prepped and draped in sterile fashion. Timeout was performed. Local anesthetic was infiltrated in the left neck over the palpable mass. Cautery was used to dissect down through the subcutaneous tissues and the skin was opened with a 15 blade scalpel. Once the palpable mass was able to be encountered, this was able to be grasped and slowly elevated and dissected around with cautery until it was removed. It was sent to pathology fresh. The wound was irrigated with copious amounts of irrigation. Subcutaneous tissues over the skin was then closed using a 3-0 Prolene in a simple running fashion. Total length of the incision was 5 cm. The patient tolerated procedure well without any complications, taken to recovery room in stable condition. Job ID: [id number] DocumentID: [id number] Dictated Date: 07/23/2020 16:16:56 Crossing Guard Date: 07/23/2020 22:04:10 Dictated By: HARINDER NEWMAN DO
== END 2020-07-23 11:10 | disposition home or self-care (01) ==
LOC: SDC 08:13
PROVIDERS: ATTEND Surgery
DX: C85.11 Unspecified B-cell lymphoma, lymph nodes of head, face, and neck (principal); I10 Essential (primary) hypertension; E78.5 Hyperlipidemia, unspecified; E11.40 Type 2 diabetes mellitus with diabetic neuropathy, unspecified; E66.01 Morbid (severe) obesity due to excess calories; Z68.41 Body mass index [BMI] 40.0-44.9, adult; Z79.899 Other long term (current) drug therapy; Z79.4 Long term (current) use of insulin; Z79.82 Long term (current) use of aspirin; Z90.89 Acquired absence of other organs; Z80.1 Family history of malignant neoplasm of trachea, bronchus and lung
CPT/HCPCS: 82947; 87081

== ENCOUNTER → 2020-08-11 | Outpatient (CLI) | payer MEDICARE, OTHER ==
--- NOTE | 2020-08-11 20:07 | Diagnostic Imaging Report ---
PET/CT INDICATION: Non-Hodgkin's lymphoma TECHNIQUE: PET/CT imaging was obtained from the base of the skull through the pelvis after the administration of 14.40 mCi of F-[address] imaging was utilized for localization and attenuation correction purposes. The low energy CT utilized for attenuation correction is not considered to be of high enough spatial resolution to allow in and of itself a separate anatomical analysis. Height: 5' 11" Weight: 316 Blood glucose: 129 There are no prior PET/CT examinations available for comparison. The CT neck, chest, abdomen and pelvis exam performed on 07/15/2020 noted adenopathy involving the neck both supraclavicular regions and both axillae as well as periaortic and pelvic adenopathy. Bulky inguinal lymph nodes were also seen bilaterally. On this study, the adenopathy does not show any significant hypermetabolic activity. The most intense nodes are the bulky bilateral inguinal nodes. However, these have a maximum SUV of only 2.1 on the left and 2.4 on the right. None of the other adenopathy registers above 2.0 on the SUV scale. There is an area of increased uptake in the subcutaneous fat along the lower left neck. This seems to be primarily confined to the skin. The maximum SUV in this area is 6.2 however. This finding is of uncertain etiology but as there is no clear evidence for a mariusz mass in the epicenter of this area of hypermetabolic activity, it is unlikely that this finding is related to malignancy. There is no other hypermetabolic activity to suggest the presence of malignancy. The CT images failed to show any sign of an acute abnormality. However, there does appear to be a 1.0 x 3.1 cm curvilinear area of diminished density in the left parietal lobe posteriorly at the level of the lateral ventricles. This may be secondary to encephalomalacia from a prior infarct. It would be less likely that this finding is related to brain edema from an underlying mass. Even so, I would recommend that either CT of the head with contrast or preferably MRI of the brain be performed for further study. The spleen is borderline enlarged. There is also cholelithiasis but there is no sign of acute cholecystitis. IMPRESSION: 1. The adenopathy involving the neck, the supraclavicular regions, the axilla, the mediastinum, the chelsea, the periaortic region, the pelvis and the inguinal regions seen previously are again evident and appears stable on the CT images. However, there is virtually no significant increased hypermetabolic activity associated with these nodes to suggest neoplastic disease. 2. There is no other hypermetabolic activity to suggest the presence of neoplasm. 3. The area of increased hypermetabolic activity in the skin along the lower left neck is more likely due to an inflammatory/infectious process than to neoplasm. 4. Either CT of the head or preferably MRI would be recommended for further evaluation of the area of diminished density in the left parietal lobe. If previous imaging of the brain is available it would be helpful for comparison as well. Dictated by: Dictated on workstation # [id number]
== END ==
LOC: RAD 09:00
PROVIDERS: ATTEND Internal Medicine Hematology & Oncology
DX: C83.30 Diffuse large B-cell lymphoma, unspecified site (principal); R59.0 Localized enlarged lymph nodes
CPT/HCPCS: 78815; A9552

== ENCOUNTER → 2020-08-18 | Outpatient (CLI) | payer MEDICARE, OTHER ==
[2020-08-18 09:10] LABS: BASOPHILS % (AUTO) 1 % (0-10); EOSINOPHILS # (AUTO) 0.3 10^3/uL (0.0-0.3); EOSINOPHILS % (AUTO) 5 % (0-10); HEMATOCRIT 31 % (40-54); HEMOGLOBIN 10.2 g/dL (13.3-17.7); LYMPHOCYTES # (AUTO) 3.9 10^3/uL (1.0-4.0); LYMPHOCYTES % (AUTO) 70 % (12-44); MEAN CORPUSCULAR HEMOGLOBIN 32 pg (25-34); MEAN CORPUSCULAR HGB CONC 33 g/dL (32-36); MEAN CORPUSCULAR VOLUME 96 fL (80-99); MEAN PLATELET VOLUME 9.8 fL (9.0-12.2); MONOCYTES # (AUTO) 0.2 10^3/uL (0.0-1.0); MONOCYTES % (AUTO) 3 % (0-12); NEUTROPHILS % (AUTO) 19 % (42-75); PLATELET COUNT 183 10^3/uL (130-400); WHITE BLOOD COUNT 5.5 10^3/uL (4.3-11.0)
[2020-08-18 09:38] LABS: ALBUMIN 3.9 GM/DL (3.2-4.5); BILIRUBIN,TOTAL 0.3 MG/DL (0.1-1.0); CALCIUM 8.9 MG/DL (8.5-10.1); CREATININE SERUM 1.37 MG/DL (0.60-1.30); TOTAL PROTEIN 6.3 GM/DL (6.4-8.2)
== END ==
LOC: LAB 08:46
PROVIDERS: ATTEND Internal Medicine Cardiovascular Disease
DX: I50.31 Acute diastolic (congestive) heart failure (principal)
CPT/HCPCS: 36415; 80053; 83880; 85025

== ENCOUNTER 2020-09-02 14:20 | Outpatient (RCR) | payer MEDICARE, OTHER ==
[2020-07-13 09:43] LABS: BASOPHILS % (AUTO) 1 % (0-10); EOSINOPHILS # (AUTO) 0.2 10^3/uL (0.0-0.3); EOSINOPHILS % (AUTO) 4 % (0-10); HEMATOCRIT 34 % (40-54); HEMOGLOBIN 11.1 g/dL (13.3-17.7); LYMPHOCYTES # (AUTO) 2.3 10^3/uL (1.0-4.0); LYMPHOCYTES % (AUTO) 55 % (12-44); MEAN CORPUSCULAR HEMOGLOBIN 31 pg (25-34); MEAN CORPUSCULAR HGB CONC 33 g/dL (32-36); MEAN CORPUSCULAR VOLUME 94 fL (80-99); MEAN PLATELET VOLUME 9.7 fL (9.0-12.2); MONOCYTES # (AUTO) 0.6 10^3/uL (0.0-1.0); MONOCYTES % (AUTO) 13 % (0-12); NEUTROPHILS # (AUTO) 1.1 10^3/uL (1.8-7.8); NEUTROPHILS % (AUTO) 26 % (42-75); PLATELET COUNT 182 10^3/uL (130-400); WHITE BLOOD COUNT 4.2 10^3/uL (4.3-11.0)
[2020-07-13 10:03] LABS: ALANINE AMINOTRANSFERASE 25 U/L (0-55); ALBUMIN 4.1 GM/DL (3.2-4.5); ALKALINE PHOSPHATASE 105 U/L (40-136); BILIRUBIN,TOTAL 0.4 MG/DL (0.1-1.0); BUN/CREATININE RATIO 20; CALCIUM 8.5 MG/DL (8.5-10.1); CARBON DIOXIDE 25 MMOL/L (21-32); CHLORIDE 101 MMOL/L (98-107); GFR ESTIMATED > 60; GLUCOSE 152 MG/DL (70-105); POTASSIUM 4.3 MMOL/L (3.6-5.0); SODIUM 135 MMOL/L (135-145)
[2020-08-04 14:00] LABS: BASOPHILS % (AUTO) 1 % (0-10); EOSINOPHILS # (AUTO) 0.3 10^3/uL (0.0-0.3); EOSINOPHILS % (AUTO) 5 % (0-10); HEMATOCRIT 32 % (40-54); HEMOGLOBIN 10.2 g/dL (13.3-17.7); LYMPHOCYTES # (AUTO) 2.4 10^3/uL (1.0-4.0); LYMPHOCYTES % (AUTO) 51 % (12-44); MEAN CORPUSCULAR HEMOGLOBIN 31 pg (25-34); MEAN CORPUSCULAR HGB CONC 32 g/dL (32-36); MEAN CORPUSCULAR VOLUME 95 fL (80-99); MEAN PLATELET VOLUME 9.2 fL (9.0-12.2); MONOCYTES % (AUTO) 20 % (0-12); NEUTROPHILS # (AUTO) 0.9 10^3/uL (1.8-7.8); NEUTROPHILS % (AUTO) 19 % (42-75); PLATELET COUNT 186 10^3/uL (130-400); WHITE BLOOD COUNT 4.8 10^3/uL (4.3-11.0)
[2020-08-04 14:22] LABS: ALANINE AMINOTRANSFERASE 17 U/L (0-55); ALBUMIN 3.7 GM/DL (3.2-4.5); ALKALINE PHOSPHATASE 104 U/L (40-136); BILIRUBIN,TOTAL 0.4 MG/DL (0.1-1.0); BUN/CREATININE RATIO 20; CALCIUM 9.1 MG/DL (8.5-10.1); CARBON DIOXIDE 28 MMOL/L (21-32); CHLORIDE 104 MMOL/L (98-107); GFR ESTIMATED > 60; GLUCOSE 135 MG/DL (70-105); POTASSIUM 4.1 MMOL/L (3.6-5.0); SODIUM 139 MMOL/L (135-145); TOTAL PROTEIN 5.9 GM/DL (6.4-8.2)
[2020-08-18 09:08] LABS: BASOPHILS % (AUTO) 1 % (0-10); EOSINOPHILS # (AUTO) 0.3 10^3/uL (0.0-0.3); EOSINOPHILS % (AUTO) 5 % (0-10); HEMATOCRIT 31 % (40-54); HEMOGLOBIN 10.2 g/dL (13.3-17.7); LYMPHOCYTES # (AUTO) 3.9 10^3/uL (1.0-4.0); LYMPHOCYTES % (AUTO) 70 % (12-44); MEAN CORPUSCULAR HEMOGLOBIN 32 pg (25-34); MEAN CORPUSCULAR HGB CONC 33 g/dL (32-36); MEAN CORPUSCULAR VOLUME 96 fL (80-99); MEAN PLATELET VOLUME 9.8 fL (9.0-12.2); MONOCYTES # (AUTO) 0.2 10^3/uL (0.0-1.0); MONOCYTES % (AUTO) 3 % (0-12); NEUTROPHILS % (AUTO) 19 % (42-75); PLATELET COUNT 183 10^3/uL (130-400); WHITE BLOOD COUNT 5.5 10^3/uL (4.3-11.0)
[2020-08-18 09:46] LABS: CALCIUM 8.9 MG/DL (8.5-10.1); CREATININE SERUM 1.37 MG/DL (0.60-1.30)
[~2020-09-02] VITALS: Ht 180.3 cm; Wt 138.3 kg
[~2020-09-02 14:20] MED LIST changes: +ACETAMINOPHEN 325 MG TAB (TYLENOL) CANCER CTR PO PRN; +NS IV 1000 ML (CANCER CTR) IV SCH; +RITUXIMAB-ABBS 500 MG, RITUXIMAB-ABBS 300 MG in NS (IVPB) CANCER CENTER 186 ML IV SCH; -SULF1TAB35 PO; +SULF1TAB38 PO; +diphenhydrAMINE 25 MG TAB (BENADRYL) CANCER CENTER PO SCH
[2020-09-22] MEDS ORDERED: KRIL1CAP35 PO (14:21)
[2020-09-22] MEDS ORDERED: METO100T12 PO (14:21)
[2020-09-22] MEDS ORDERED: ASPI-999 PO (14:21)
[2020-09-22] MEDS ORDERED: POTA-51 PO (14:21)
[2020-09-22] MEDS ORDERED: FURO80TA3 PO (14:21)
[2020-09-22] MEDS ORDERED: ATOR20TA66 PO (14:21)
== END 2020-10-01 12:00 | disposition home or self-care (01) ==
LOC: ONC 14:20
PROVIDERS: ATTEND Internal Medicine Hematology & Oncology
DX: C91.10 Chronic lymphocytic leukemia of B-cell type not having achieved remission (principal); E11.9 Type 2 diabetes mellitus without complications; D63.0 Anemia in neoplastic disease; I10 Essential (primary) hypertension; Z79.82 Long term (current) use of aspirin; Z79.4 Long term (current) use of insulin; Z79.899 Other long term (current) drug therapy; Z96.653 Presence of artificial knee joint, bilateral; Z98.890 Other specified postprocedural states; Z92.21 Personal history of antineoplastic chemotherapy
CPT/HCPCS: 80053; 83615; 85025; G0463; 36591; 80048; 88377; 99213

== ENCOUNTER → 2020-09-10 | Outpatient (CLI) | payer MEDICARE, OTHER ==
[~2020-09-10] MED LIST changes: -ACETAMINOPHEN 325 MG TAB (TYLENOL) CANCER CTR PO PRN; -NS IV 1000 ML (CANCER CTR) IV SCH; -RITUXIMAB-ABBS 500 MG, RITUXIMAB-ABBS 300 MG in NS (IVPB) CANCER CENTER 186 ML IV SCH; -diphenhydrAMINE 25 MG TAB (BENADRYL) CANCER CENTER PO SCH
== END ==
LOC: RAD 14:00
PROVIDERS: ATTEND Nurse Practitioner Adult Health
DX: C83.08 Small cell B-cell lymphoma, lymph nodes of multiple sites (principal); R93.89 Abnormal findings on diagnostic imaging of other specified body structures

== ENCOUNTER 2020-09-21 20:58 | Inpatient (IN) | payer MEDICARE, OTHER ==
[~2020-09-21] VITALS: Ht 180.3 cm; Wt 126.4 kg
[2020-09-21] MEDS ORDERED: RT-ALBUTEROL INHALER HFA (VENTOLIN HFA) 18 GM IH ONE (22:00)
[2020-09-21 22:02] LABS: BASOPHILS % (AUTO) 0 % (0-10); EOSINOPHILS # (AUTO) 0.1 10^3/uL (0.0-0.3); EOSINOPHILS % (AUTO) 1 % (0-10); HEMATOCRIT 33 % (40-54); HEMOGLOBIN 11.1 g/dL (13.3-17.7); LYMPHOCYTES # (AUTO) 6.6 10^3/uL (1.0-4.0); LYMPHOCYTES % (AUTO) 66 % (12-44); MEAN CORPUSCULAR HEMOGLOBIN 32 pg (25-34); MEAN CORPUSCULAR HGB CONC 34 g/dL (32-36); MEAN CORPUSCULAR VOLUME 94 fL (80-99); MEAN PLATELET VOLUME 10.7 fL (9.0-12.2); MONOCYTES # (AUTO) 1.3 10^3/uL (0.0-1.0); MONOCYTES % (AUTO) 13 % (0-12); NEUTROPHILS % (AUTO) 20 % (42-75); PLATELET COUNT 135 10^3/uL (130-400); WHITE BLOOD COUNT 10.1 10^3/uL (4.3-11.0)
[2020-09-21 22:08] LABS: POTASSIUM 4.1 MMOL/L (3.6-5.0)
[2020-09-21 22:09] LABS: CALCIUM 8.4 MG/DL (8.5-10.1)
[2020-09-21 22:14] LABS: CREATININE SERUM 2.47 MG/DL (0.60-1.30)
[2020-09-21] MEDS ORDERED: DEXTROSE 50% 50 ML (IMS) SYR ONE (22:20)
[2020-09-21] MEDS ORDERED: NS IV 1000 ML 1,000 ML IV SCH (22:30)
[2020-09-21] MEDS ORDERED: DEXTROSE 50% 50 ML (IMS) SYR IV ONE (22:30)
[2020-09-21] MEDS ORDERED: ENOXAPARIN 60 MG/0.6 ML (LOVENOX) SYR SC ONE (23:30)
[2020-09-22] VITALS (14 sets, daily range): BP systolic 119–177; BP diastolic 57–111
--- NOTE | 2020-09-22 00:04 | ED General ---
General Chief Complaint: Respiratory Problems Stated Complaint: SOB,COUGH Nursing Triage Note: PT AMBULATE TO ROOM 05 WITH C/O SOB AND COUGH. PT REPORTS HE JUST RETURNED FROM VACATION IN [facility] AND WAS CAUGHT OUT IN THE RAIN ON [place]. PT REPORTS COUGH X3 MONTHS AND HAS BEEN SEEN IN THE CLINIC AND GIVEN MEDS. Source of Information: Patient Exam Limitations: No Limitations History of Present Illness Date Seen by Provider: Sep 21, 2020 Time Seen by Provider: 21:35 Initial Comments This 70-year-old gentleman presents to the emergency room with cough, conge stion, postnasal drainage, and difficulty breathing when lying down at night. He reports symptoms have been present for about 3 months but seem to be a little bit worse after returning from a trip to [place] recently. Patient received 2 doses of the Moderna vaccine 3 or 4 months ago. He is afebrile. He denies any vomiting or diarrhea. He has chronic health problems including diabetes, obesity, and CLL. Allergies and Home Medications Allergies Coded Allergies: No Known Drug Allergies (Unverified , 07/22/20) Home Medications Acyclovir 800 Mg Tablet, 800 MG PO BID, (Reported) Amlodipine Besylate 5 Mg Tablet, 10 MG PO DAILY, (Reported) Aspirin 81 Mg Tablet.dr, 81 MG PO DAILY, (Reported) Fluticasone Propionate 9.9 Ml [place].susp, 1 SPRAY NS BID, (Reported) 1 SPRAY EACH NARE DAILY Glimepiride 4 Mg Tablet, 4 MG PO BID, (Reported) Insulin Aspart 300 Units/3 Ml Solution, 15 UNITS SQ BID WITH MEALS, (Reported) FILLED 12-24-2018 #10 PENS/100 DAY SUPPLY Insulin Detemir 100 Unit/1 Ml Insuln.pen, 60 UNIT SQ BID, (Reported) Lisinopril/Hydrochlorothiazide 1 Each Tablet, 1 TAB PO BID, (Reported) Lovastatin 20 Mg Tablet, 20 MG PO DAILY, (Reported) Metformin HCl 1,000 Mg Tablet, 1,000 MG PO BID, (Reported) Metoprolol Tartrate 50 Mg Tablet, 50 MG PO BID, (Reported) Patient Home Medication List Home Medication List Reviewed: Yes Review of Systems Review of Systems Constitutional: no symptoms reported EENTM: see HPI Respiratory: no symptoms reported Cardiovascular: no symptoms reported Gastrointestinal: no symptoms reported Genitourinary: no symptoms reported Musculoskeletal: no symptoms reported Skin: no symptoms reported Psychiatric/Neurological: No Symptoms Reported Hematologic/Lymphatic: No Symptoms Reported Immunological/Allergic: no symptoms reported Past Axjaeex-Qjiuth-Vzkwcl Hx Patient Social History Tobacco Use?: No Use of E-Cig and/or Vaping dev: No Substance use?: No Alcohol Use?: No Pt feels they are or have been: No Immunizations Up To Date Tetanus Booster (TDap): First/Initial COVID19 Vaccinat: APRIL Second COVID19 Vaccination Reynaldo: MAY Seasonal Allergies Seasonal Allergies: No Past Medical History Surgeries: Yes (bilat total knee, lymph node removal) Orthopedic, Tonsillectomy Respiratory: No Currently Using CPAP: No Currently Using BIPAP: No Cardiac: Yes High Cholesterol, Hypertension Neurological: No Sexually Transmitted Disease: No HIV/AIDS: No Genitourinary: No Gastrointestinal: No Musculoskeletal: Yes (OSTEOARTHRITIS) Arthritis Endocrine: Yes Diabetes, Non-Insulin dep HEENT: Yes (BILAT CATARACTS REMOVED, BOTTOM FRONT 4 TEETH ARE LOOSE) Cataract Cancer: Yes Leukemia Did You Recieve Any Treatments: Yes What Type of Treatment Did You: Chemotherapy Psychosocial: No Integumentary: No Blood Disorders: No Family Medical History Dementia 19 MOTHER Diabetes mellitus G8 BROTHER G8 SISTER Hypertension G8 BROTHER Respiratory disorder 19 FATHER (lung cancer) No Pertinent Family Hx Physical Exam-Suspected Sepsis Physical Exam Vital Signs Vital Signs - First Documented 09/21/20 09/22/20 21:13 00:56 Temp 36.8 Pulse 83 Resp 19 B/P (MAP) 127/51 (76) Pulse Ox 93 O2 Delivery Room Air O2 Flow Rate 2.00 Capillary Refill : Less Than 3 Seconds Blood Pressure Mean: 76 Height, Weight, BMI Height: 5'11.00" Weight: 290lbs. 0.0oz. 131.748452et; 40.00 BMI Method:Stated General Appearance: No Apparent Distress, WD/WN HEENT: PERRL/EOMI, Normal ENT Inspection, Other (Mucous membranes somewhat dry) Neck: Normal Inspection Respiratory: Lungs Clear, Normal Breath Sounds, No Accessory Muscle Use, Other (Wheezing and coughing with forced expiration) Cardiovascular: Regular Rate, Rhythm, No Edema, No Murmur Gastrointestinal: Normal Bowel Sounds, Non Tender, Soft Extremity: Non Tender, Pedal Edema, Swelling Neurologic/Psychiatric: Alert, Oriented x3, No Motor/Sensory Deficits, Normal Mood/Affect, pondman II-XII Norm as Tested Skin: normal color, warm/dry Focused Exam Lactate Level 09/21/20 22:45: Lactic Acid Level 1.09 Lactic Acid Level Progress/Results/Core Measures Suspected Sepsis SIRS Temperature: Pulse: 83 Respiratory Rate: 19 Laboratory Tests 09/21/20 21:20: White Blood Count 10.1 09/22/20 03:05: White Blood Count 7.5 Blood Pressure 127 /51 Mean: 76 09/21/20 22:45: Lactic Acid Level 1.09 Laboratory Tests 09/21/20 21:20: Creatinine 2.47H, Platelet Count 135 09/22/20 03:05: Creatinine 2.08H, Platelet Count 105L Results/Orders Lab Results Laboratory Tests Test 09/21/20 21:20 09/21/20 21:25 09/21/20 22:45 09/22/20 00:51 Range/Units White Blood Count 10.1 4.3-11.0 10^3/uL Red Blood Count 3.52 L 4.30-5.52 10^6/uL Hemoglobin 11.1 L 13.3-17.7 g/dL Hematocrit 33 L 40-54 % Mean Corpuscular Volume 94 80-99 fL Mean Corpuscular Hemoglobin 32 25-34 pg Mean Corpuscular Hemoglobin Concent 34 32-36 g/dL Red Cell Distribution Width 15.7 H 10.0-14.5 % Platelet Count 135 130-400 10^3/uL Mean Platelet Volume 10.7 9.0-12.2 fL Immature Granulocyte % (Auto) 1 % Neutrophils (%) (Auto) 20 L 42-75 % Lymphocytes (%) (Auto) 66 H 12-44 % Monocytes (%) (Auto) 13 H 0-12 % Eosinophils (%) (Auto) 1 0-10 % Basophils (%) (Auto) 0 0-10 % Neutrophils # (Auto) 2.0 1.8-7.8 10^3/uL Lymphocytes # (Auto) 6.6 H 1.0-4.0 10^3/uL Monocytes # (Auto) 1.3 H 0.0-1.0 10^3/uL Eosinophils # (Auto) 0.1 0.0-0.3 10^3/uL Basophils # (Auto) 0.0 0.0-0.1 10^3/uL Immature Granulocyte # (Auto) 0.1 0.0-0.1 10^3/uL D-Dimer 0.70 H 0.00-0.49 UG/ML Sodium Level 128 L 135-145 MMOL/L Potassium Level 4.1 3.6-5.0 MMOL/L Chloride Level 92 L 98-107 MMOL/L Carbon Dioxide Level 18 L 21-32 MMOL/L Anion Gap 18 H 5-14 MMOL/L Blood Urea Nitrogen 72 H 7-18 MG/DL Creatinine 2.47 H 0.60-1.30 MG/DL Estimat Glomerular Filtration Rate 26 BUN/Creatinine Ratio 29 Glucose Level 48 *L 70-105 MG/DL Calcium Level 8.4 L 8.5-10.1 MG/DL C-Reactive Protein High Sensitivity 15.42 H 0.00-0.50 MG/DL B-Type Natriuretic Peptide 21.4 <100.0 PG/ML Procalcitonin 0.21 H <0.10 NG/ML Influenza Type A (RT-PCR) Not Detected Not Detecte Influenza Type B (RT-PCR) Not Detected Not Detecte SARS-CoV-2 RNA (RT-PCR) Detected H Not Detecte Lactic Acid Level 1.09 0.50-2.00 MMOL/L Glucometer 79 70-110 MG/DL Test 09/22/20 03:05 Range/Units White Blood Count 7.5 4.3-11.0 10^3/uL Red Blood Count 3.19 L 4.30-5.52 10^6/uL Hemoglobin 10.1 L 13.3-17.7 g/dL Hematocrit 30 L 40-54 % Mean Corpuscular Volume 94 80-99 fL Mean Corpuscular Hemoglobin 32 25-34 pg Mean Corpuscular Hemoglobin Concent 34 32-36 g/dL Red Cell Distribution Width 15.6 H 10.0-14.5 % Platelet Count 105 L 130-400 10^3/uL Mean Platelet Volume 11.0 9.0-12.2 fL Immature Granulocyte % (Auto) 2 % Neutrophils (%) (Auto) 20 L 42-75 % Lymphocytes (%) (Auto) 67 H 12-44 % Monocytes (%) (Auto) 11 0-12 % Eosinophils (%) (Auto) 0 0-10 % Basophils (%) (Auto) 0 0-10 % Neutrophils # (Auto) 1.5 L 1.8-7.8 10^3/uL Lymphocytes # (Auto) 5.1 H 1.0-4.0 10^3/uL Monocytes # (Auto) 0.8 0.0-1.0 10^3/uL Eosinophils # (Auto) 0.0 0.0-0.3 10^3/uL Basophils # (Auto) 0.0 0.0-0.1 10^3/uL Immature Granulocyte # (Auto) 0.1 0.0-0.1 10^3/uL Sodium Level 129 L 135-145 MMOL/L Potassium Level 4.5 3.6-5.0 MMOL/L Chloride Level 97 L 98-107 MMOL/L Carbon Dioxide Level 17 L 21-32 MMOL/L Anion Gap 15 H 5-14 MMOL/L Blood Urea Nitrogen 68 H 7-18 MG/DL Creatinine 2.08 H 0.60-1.30 MG/DL Estimat Glomerular Filtration Rate 32 BUN/Creatinine Ratio 33 Glucose Level 92 70-105 MG/DL Calcium Level 7.8 L 8.5-10.1 MG/DL My Orders Orders - YUMIKO HARRELL MD Covid 19 Inhouse Test (09/21/20 21:35) Influenza A And B By Pcr (09/21/20 21:35) Basic Metabolic Panel (09/21/20 21:47) Cbc With Automated Diff (09/21/20 21:47) Hs C Reactive Protein (09/21/20 21:47) Ed Iv/Invasive Line Start (09/21/20 21:47) BNP (09/21/20 22:00) Albuterol Inhaler (Ventolin Hfa) (09/21/20 22:00) D50w (Emergency) Syringe (Dextrose 50% 5 (09/21/20 22:30) Accucheck Stat ONCE (09/21/20 22:16) Ns Iv 1000 Ml (Sodium Chloride 0.9%) (09/21/20 22:30) Procalcitonin (Pct) (09/21/20 22:19) Blood Culture (09/21/20 22:19) Sputum Culture (09/21/20 22:19) Urinalysis (09/21/20 22:19) Urine Culture (09/21/20 22:19) Chest 1 View, Ap/Pa Only (09/21/20 22:19) Ed Iv/Invasive Line Start (09/21/20 22:19) Vital Signs Adult Sepsis Patie Q15M (09/21/20 22:19) O2 (09/21/20 22:19) Remove Rings In Anticipation O (09/21/20 22:19) Lactic Acid Analyzer (09/21/20 22:19) Dexamethasone Injection (Decadron Inje (09/21/20 22:30) D50w (Emergency) Syringe (Dextrose 50% 5 (09/21/20 22:20) Fibrin Degradation Products (09/21/20 22:25) Enoxaparin Injection (Lovenox Injection) (09/21/20 23:30) Medications Given in ED Current Medications Medications Dose Ordered Sig/Stuart Route Start Time Stop Time Status Last Admin Dose Admin Albuterol Sulfate 4 puffs x 1 RTQ4HR ONCE IH 09/21/20 22:00 09/21/20 22:02 DC 09/21/20 22:21 18 GM Dexamethasone Sodium Phosphate 6 mg ONCE ONCE IV 09/21/20 22:30 09/21/20 22:31 DC 09/21/20 22:34 6 MG Dextrose 50 ml ONCE ONCE IV 09/21/20 22:30 09/21/20 22:31 DC 09/21/20 22:21 50 ML Enoxaparin Sodium 120 mg ONCE ONCE SC 09/21/20 23:30 09/21/20 23:31 DC 09/21/20 23:56 120 MG Vital Signs/I&O 09/21/20 09/22/20 09/22/20 09/22/20 21:13 00:56 01:00 01:00 Temp 36.8 Pulse 83 96 96 94 Resp 19 B/P (MAP) 127/51 (76) 119/75 (91) 137/111 (118) Pulse Ox 93 93 O2 Delivery Room Air Nasal Cannula Nasal Cannula O2 Flow Rate 2.00 2.00 09/22/20 09/22/20 09/22/20 09/22/20 01:00 01:13 01:15 01:27 Temp 38.3 38.3 Pulse 96 98 99 98 Resp 23 20 B/P (MAP) 128/71 (90) 128/71 (84) Pulse Ox 97 97 O2 Delivery Nasal Cannula Nasal Cannula O2 Flow Rate 2.00 2.00 09/22/20 09/22/20 09/22/20 09/22/20 01:30 01:30 01:45 02:00 Pulse 97 100 98 Resp 19 18 B/P (MAP) 140/57 (83) 148/80 (97) 153/77 (97) Pulse Ox 97 97 93 95 O2 Delivery Nasal Cannula Nasal Cannula Nasal Cannula Nasal Cannula O2 Flow Rate 2.00 2.00 2.00 2.00 09/22/20 09/22/20 09/22/20 09/22/20 02:15 02:25 04:00 04:00 Temp 38.3 36.6 Pulse 100 101 B/P (MAP) 142/70 (92) 119/92 (101) Pulse Ox 95 96 O2 Delivery Nasal Cannula Nasal Cannula O2 Flow Rate 2.00 2.00 09/22/20 06:20 Pulse 88 Resp 20 B/P (MAP) 138/88 Pulse Ox 96 O2 Delivery Nasal Cannula O2 Flow Rate 2.00 Capillary Refill : Less Than 3 Seconds Blood Pressure Mean: 76 Progress Note : Progress Note COVID-19 test was positive. Patient was treated with dexamethasone and continued on nasal cannula oxygen. While on room air oxygen saturations dipped as low as 87% while at rest in bed. He was found to have a blood sugar of 48 on his labs. An amp of D50 was administered. Acute kidney injury was noted and a liter of IV normal saline was ordered. D-dimer was elevated. CT angiogram cannot be performed due to renal function. Therapeutic Lovenox was ordered. Patient requested DNR status. Diagnostic Imaging Diagonstic Imaging: Xray Plain Films/CT/US/NM/MRI: chest Comments Chest x-ray viewed by me. Report not yet available. Basilar atelectasis versus infiltrate. Departure Communication (Admissions) Time/Spoke to Admitting Phy: 23:25 Dr. Gatica Impression Primary Impression: COVID-19 Additional Impressions: Hypoxia Elevated d-dimer Acute kidney injury Hyperglycemia Disposition: ADMITTED INPATIENT Condition: Improved Admissions Decision to Admit Reason: Admit from ER (General) Decision to Admit/Date: Sep 21, 2020 Time/Decision to Admit Time: 22:20 Departure-Patient Inst. Referrals: [facility] [place] (PCP) Primary Care Physician SHADIA BLAIR (Family) Primary Care Physician YUMIKO HARRELL MD Sep 22, 2020 00:04
[2020-09-22] MEDS ORDERED: NS IV 1000 ML 1,000 ML ONE (00:47)
[2020-09-22] MEDS ORDERED: RT-ALBUTEROL INHALER HFA (VENTOLIN HFA) 18 GM IH PRN ×2 (01:00→01:30)
[2020-09-22] MEDS: NS IV 1000 ML 1,000 ML IV SCH ×4 (01:12→21:12)
[2020-09-22] MEDS: guaiFENesin/DM (ROBITUSSIN DM) 10 ML UDC PO PRN (02:24)
[2020-09-22] MEDS: ACETAMINOPHEN 325 MG TABLET PO PRN (02:25)
[2020-09-22 03:59] LABS: BASOPHILS % (AUTO) 0 % (0-10); EOSINOPHILS % (AUTO) 0 % (0-10); HEMATOCRIT 30 % (40-54); HEMOGLOBIN 10.1 g/dL (13.3-17.7); LYMPHOCYTES # (AUTO) 5.1 10^3/uL (1.0-4.0); LYMPHOCYTES % (AUTO) 67 % (12-44); MEAN CORPUSCULAR HEMOGLOBIN 32 pg (25-34); MEAN CORPUSCULAR HGB CONC 34 g/dL (32-36); MEAN CORPUSCULAR VOLUME 94 fL (80-99); MONOCYTES # (AUTO) 0.8 10^3/uL (0.0-1.0); MONOCYTES % (AUTO) 11 % (0-12); NEUTROPHILS # (AUTO) 1.5 10^3/uL (1.8-7.8); NEUTROPHILS % (AUTO) 20 % (42-75); PLATELET COUNT 105 10^3/uL (130-400); WHITE BLOOD COUNT 7.5 10^3/uL (4.3-11.0)
[2020-09-22 04:10] LABS: POTASSIUM 4.5 MMOL/L (3.6-5.0)
[2020-09-22 04:11] LABS: CALCIUM 7.8 MG/DL (8.5-10.1)
[2020-09-22] MEDS: inSUlin ASPART (NovoLOG) 1 UNIT/0.01 ML (CHARGE PER UNIT) SC SCH ×4 (04:13→20:54)
[2020-09-22 04:16] LABS: CREATININE SERUM 2.08 MG/DL (0.60-1.30)
--- NOTE | 2020-09-22 05:19 | History & Physical-Hospitalist ---
History of Present Illness HPI/Chief Complaint CC: Covid-19 with SOB HPI: This is a 70yoWM clinic pt of Dr. Samuel who has a hx of CLL in addition to chronic kidney disease who presents to the ER with fever and SOB. He received the Covid vaccine in May. He was found to have Covid-19 and B/L infiltrates. Procalcitonin of 0.2 prompting the addition of Cefepime and Azithromycin. He does not use oxygen at home and currently feels much better. He did have chemotherapy on July 13 and there is a higher risk for decompensation for individuals who are on chemotherapy. Source: patient Exam Limitations: no limitations Date Seen 09/22/20 Time Seen by a Provider: 09:30 Attending Physician Merry Gatica DO [facility] Referring Physician Date of Admission Sep 22, 2020 at 00:04 Home Medications & Allergies Home Medications Reviewed patient Home Medication Reconciliation performed by pharmacy medication reconciliations customer service technician and/or nursing. Patients Allergies have been reviewed. Allergies Allergies Coded Allergies No Known Drug Allergies (Unverified07/22/20) Past [id number] Hx Patient Social History Marrital Status: Employed/Student: retired Tobacco Use?: No Smoking Status: Never a Smoker Smokeless Tobacco Frequency: Never a User Use of E-Cig and/or Vaping dev: No Use of E-Cig and/or Vaping Ryan: Never a User Substance use?: No Alcohol Use?: No Pt feels they are or have been: No Immunizations Up To Date Date of Influenza Vaccine: Dec 23, 2019 First/Initial COVID19 Vaccinat: April Second COVID19 Vaccination Reynaldo: May Tetanus Booster (TDap): Unknown Date of Pneumonia Vaccine: Jan 17, 2019 Seasonal Allergies Seasonal Allergies: No Current Status Advance Directives: No Communicates: Verbally Primary Language: B[place] Preferred Spoken Language: [place]an Is interpretation needed?: No Implanted or Applied Medical D: Port-a-cath Past Medical History Surgeries: Orthopedic, Tonsillectomy Currently Using CPAP: No Currently Using BIPAP: No High Cholesterol, Hypertension Sexually Transmitted Disease: No HIV/AIDS: No Arthritis Diabetes, Non-Insulin dep Cataract Leukemia Did You Recieve Any Treatments: Yes What Type of Treatment Did You: Chemotherapy Blood Disorders: No Type II Diabetes, Insulin Dependent HTN Hyperlipidemia CLL Family Medical History Dementia 19 MOTHER Diabetes mellitus G8 BROTHER G8 SISTER Hypertension G8 BROTHER Respiratory disorder 19 FATHER (lung cancer) No Pertinent Family Hx Review of Systems Constitutional: see HPI, malaise, weakness EENTM: no symptoms reported Respiratory: dyspnea on exertion, short of breath Physical Exam Physical Exam Vital Signs Vital Signs - First Documented 09/21/20 09/22/20 21:13 00:56 Temp 36.8 Pulse 83 Resp 19 B/P (MAP) 127/51 (76) Pulse Ox 93 O2 Delivery Room Air O2 Flow Rate 2.00 Capillary Refill : Less Than 3 Seconds Height, Weight, BMI Height: 5'11.00" Weight: 290lbs. 0.0oz. 131.724999cu; 38.88 BMI Method:Stated General Appearance: Anxious, Chronically ill, Obese, Other (ashen) Eyes: Right Eye Normal Inspection, Right Eye PERRL HEENT: PERRL/EOMI, Normal ENT Inspection, Pharynx Normal, Moist Mucous Membranes Neck: Full Range of Motion, Normal Inspection, Non Tender Respiratory: Chest Non Tender, No Accessory Muscle Use, No Respiratory Distress, Decreased Breath Sounds, Wheezing Cardiovascular: Regular Rate, Rhythm, No Edema, No Gallop, No JVD, No Murmur, Normal Peripheral Pulses Gastrointestinal: Normal Bowel Sounds, No Organomegaly, No Pulsatile Mass, Non Tender, Soft Back: Normal Inspection, No CVA Tenderness, No Vertebral Tenderness Extremity: Normal Capillary Refill, Normal Inspection, Normal Range of Motion, Non Tender, No Calf Tenderness, No Pedal Edema Neurologic/Psychiatric: Alert, Oriented x3, No Motor/Sensory Deficits, Normal Mood/Affect Skin: Normal Color, Warm/Dry Lymphatic: No Adenopathy Results Results/Procedures Labs Laboratory Tests 09/21/20 21:20 09/22/20 03:05 Patient resulted labs reviewed. 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
--- NOTE | 2020-09-22 07:58 | Diagnostic Imaging Report ---
EXAMINATION: Chest radiograph, portable AP view. DATE: 09/21/2020 11:16 PM INDICATION: 70-year-old male, shortness of breath, cough. The patient is COVID positive.. COMPARISON: May 24, 2018. FINDINGS: There is a right-sided venous line overlying the mid SVC. Stable overall appearance of the cardia mediastinal silhouette. There is no identified pneumothorax. There is no large pleural effusion. There are streaky opacities in the right mid and lower lung which are similar to the comparison exam. There is no radiographically apparent interval focal airspace consolidation. IMPRESSION: 1. Streaky opacities in the right mid lung and lower lung are similar to the prior exam and may relate to scarring and/or atelectasis. 2. No radiographically apparent interval focal airspace consolidation. Dictated by: Dictated on workstation # [id number]
[2020-09-22] MEDS ORDERED: ALBUTEROL/IPRATROP (COMBIVENT RESPIMAT) 4 GM INHALER IH SCH (09:00)
--- NOTE | 2020-09-22 11:47 | Tele-ICU Consult ---
History of Present Illness History of Present Illness Date Seen by Provider: Sep 22, 2020 Time Seen by Provider: 10:00 Date of Admission Patient acknowledged, consented, and participated in this virtual visit which was conducted using real time audio/video. Thank you for asking us to see this patient for respiratory insufficiency and distress due to Covid. HPC: Recent events: Weaned from 2 l to RA. Feels better. PMH: htn dm sinusitis SH: smoking history no FH: DM dem. ROS: no positives, feels better PE: Undistressed. VSS HR76 NSR BP127/61 RR 22 94% O2 sat on RA HEENT: No obvious masses, adenopathy or JVD. Chest: clear to auscultation. CV: RRR S1 S2 No murmur or added sounds. Abd: Non-tender. Bowel sounds . : Unremarkable. [place] . [place] L[place]ER/psychiatric: Alert and oriented, grossly intact. No obvious focal findings. Extremities: edema. Capillary refill < 3 seconds. Skin: unremarkable. Results: Elevated . Decreased . A/P: Available chart/ vitals / labs / Images reviewed Video assessment done using teleICU camera, rest of exam as per RN Respiratory: Continue present management with Dec Monitor for increasing oxygenation needs and/or need for ICU transfer. Ambulate Critical Care: critically ill patient. Discussed with RN and other bedside health professionals. Asked RN to reach out to eICU if any questions or concerns later. Time spent with patient/family/coordination of care with other health professionals (mins): 20 Reason for Visit: see free text History of Present Illness see free text Allergies and Home Medications Allergies Coded Allergies: No Known Drug Allergies (Unverified , 07/22/20) Home Medications Acyclovir 800 Mg Tablet, 800 MG PO BID, (Reported) Amlodipine Besylate 5 Mg Tablet, 10 MG PO DAILY, (Reported) Aspirin 81 Mg Tablet.dr, 81 MG PO DAILY, (Reported) Fluticasone Propionate 9.9 Ml [place].susp, 1 SPRAY NS BID, (Reported) 1 SPRAY EACH NARE DAILY Glimepiride 4 Mg Tablet, 4 MG PO BID, (Reported) Insulin Aspart 300 Units/3 Ml Solution, 15 UNITS SQ BID WITH MEALS, (Reported) FILLED 12-24-2018 #10 PENS/100 DAY SUPPLY Insulin Detemir 100 Unit/1 Ml Insuln.pen, 60 UNIT SQ BID, (Reported) Lisinopril/Hydrochlorothiazide 1 Each Tablet, 1 TAB PO BID, (Reported) Lovastatin 20 Mg Tablet, 20 MG PO DAILY, (Reported) Metformin HCl 1,000 Mg Tablet, 1,000 MG PO BID, (Reported) Metoprolol Tartrate 50 Mg Tablet, 50 MG PO BID, (Reported) Past Medical/Social/Family Hx Patient Social History Tobacco Use?: No Smoking Status: Never a Smoker Smokeless Tobacco Frequency: Never a User Use of E-Cig and/or Vaping dev: No E-Cig and/or Vaping Freq: Never a User Substance use?: No Alcohol Use?: No Pt stated abuse/neglect: No Immunizations Up To Date Influenza Vaccine Up-to-Date: Yes; Up-to-Date First/Initial COVID19 Vaccinat: April Second COVID19 Vaccination Reynaldo: May Tetanus Booster (TDap): Unknown Date of Pneumonia Vaccine: Jan 17, 2019 Current Status Advance Directives: No Communicates: Verbally Primary Language: Swiss Preferred Spoken Language: Swiss Is interpretation needed?: No Implanted or Applied Medical D: Port-a-cath Past Medical History Type II Diabetes, Insulin Dependent HTN Hyperlipidemia CLL Review of Systems ROS-Unable to Obtain: see free text Constitutional: no symptoms reported All Other Systems Reviewed Negative Unless Noted: Yes Sepsis Event Evaluation Sepsis Stage: Ruled Out Height, Weight, BMI Height: 5'11.00" Weight: 290lbs. 0.0oz. 131.817629ev; 38.88 BMI Method:Stated Exam Exam See free text. Patient acknowledged, consented, and participated in this virtual visit which was conducted using real time audio/video Vital Signs Date Time Temp Pulse Resp B/P (MAP) Pulse Ox O2 Delivery O2 Flow Rate FiO2 09/22/20 11:09 Room Air 09/22/20 11:04 99 Nasal Cannula 2.00 09/22/20 09:00 Nasal Cannula 2.00 09/22/20 07:51 36.0 82 127/61 (83) 99 Nasal Cannula 2.00 09/22/20 06:20 88 20 138/88 96 Nasal Cannula 2.00 09/22/20 04:00 101 119/92 (101) 96 Nasal Cannula 2.00 09/22/20 04:00 36.6 09/22/20 02:25 38.3 09/22/20 02:15 100 142/70 (92) 95 Nasal Cannula 2.00 09/22/20 02:00 98 153/77 (97) 95 Nasal Cannula 2.00 09/22/20 01:45 100 18 148/80 (97) 93 Nasal Cannula 2.00 09/22/20 01:30 97 19 140/57 (83) 97 Nasal Cannula 2.00 09/22/20 01:30 97 Nasal Cannula 2.00 09/22/20 01:27 38.3 98 97 09/22/20 01:15 99 20 128/71 (84) Nasal Cannula 2.00 09/22/20 01:13 38.3 98 23 128/71 (90) 97 Nasal Cannula 2.00 09/22/20 01:00 96 09/22/20 01:00 94 137/111 (118) 93 Nasal Cannula 2.00 09/22/20 01:00 96 09/22/20 00:56 96 119/75 (91) 93 Nasal Cannula 2.00 09/21/20 21:13 36.8 83 19 127/51 (76) Room Air I & O 09/22/20 07:00 Intake Total 100 ml Output Total 115 ml Balance -15 ml Height & Weight Height: 5'11.00" Weight: 290lbs. 0.0oz. 131.200158bk; 38.88 BMI Method:Stated General Appearance: No Apparent Distress, WD/WN HEENT: PERRL/EOMI, Normal ENT Inspection, Other (Mucous membranes somewhat dry) Neck: Normal Inspection Respiratory: Lungs Clear, Normal Breath Sounds, No Accessory Muscle Use, Other (Wheezing and coughing with forced expiration) Cardiovascular: Regular Rate, Rhythm, No Edema, No Murmur Capillary Refill: Less Than 3 Seconds Extremity: Non Tender, Pedal Edema, Swelling Neurologic/Psychiatric: Alert, Oriented x3, No Motor/Sensory Deficits, Normal Mood/Affect, information broker II-XII Norm as Tested Results Lab Laboratory Tests 09/21/20 21:20 09/22/20 03:05 Assessment/Plan Assessment/Plan see free text Time spent on discussion(mins): 0 Diagnosis/Problems Problems/Diagonsis (1) Covid (2) SILVERIO Oseguera MD Sep 22, 2020 11:47
[2020-09-22] MEDS: CEFEPIME INJECTION 1,000 MG in WATER (STERILE) FOR INJECTION 10 ML IV SCH ×2 (13:07→20:44)
[2020-09-22] MEDS: AZITHROMYCIN INJECTION 500 MG in NS (IVPB) 250 ML IV SCH (13:07)
[2020-09-22] MEDS ORDERED: METO100T12 PO (14:21)
[2020-09-22] MEDS ORDERED: KRIL1CAP35 PO (14:21)
[2020-09-22] MEDS ORDERED: POTA-51 PO (14:21)
[2020-09-22] MEDS ORDERED: FURO80TA3 PO (14:21)
[2020-09-22] MEDS ORDERED: ASPI-999 PO (14:21)
[2020-09-22] MEDS ORDERED: ATOR20TA66 PO (14:21)
[2020-09-22] MEDS ORDERED: hydrALAZINE (APESOLINE) 20 MG/ML VIAL IV PRN (21:30)
[2020-09-22] MEDS ORDERED: amLODIPine 5 MG (NORVASC) TAB PO ONE (21:30)
[2020-09-23] VITALS (8 sets, daily range): BP systolic 105–150; BP diastolic 50–75
[2020-09-23] MEDS: guaiFENesin/DM (ROBITUSSIN DM) 10 ML UDC PO PRN ×2 (04:13→20:30)
[2020-09-23] MEDS: CEFEPIME INJECTION 1,000 MG in WATER (STERILE) FOR INJECTION 10 ML IV SCH ×3 (04:13→20:29)
[2020-09-23] MEDS: ACETAMINOPHEN 325 MG TABLET PO PRN (04:14)
[2020-09-23 04:35] LABS: BASOPHILS % (AUTO) 0 % (0-10); EOSINOPHILS % (AUTO) 0 % (0-10); HEMATOCRIT 28 % (40-54); HEMOGLOBIN 9.5 g/dL (13.3-17.7); LYMPHOCYTES # (AUTO) 5.9 10^3/uL (1.0-4.0); LYMPHOCYTES % (AUTO) 73 % (12-44); MEAN CORPUSCULAR HEMOGLOBIN 32 pg (25-34); MEAN CORPUSCULAR HGB CONC 34 g/dL (32-36); MEAN CORPUSCULAR VOLUME 94 fL (80-99); MEAN PLATELET VOLUME 11.1 fL (9.0-12.2); MONOCYTES # (AUTO) 0.1 10^3/uL (0.0-1.0); MONOCYTES % (AUTO) 1 % (0-12); NEUTROPHILS # (AUTO) 2.1 10^3/uL (1.8-7.8); NEUTROPHILS % (AUTO) 25 % (42-75); PLATELET COUNT 108 10^3/uL (130-400); WHITE BLOOD COUNT 8.1 10^3/uL (4.3-11.0)
[2020-09-23 04:39] LABS: ALBUMIN 3.3 GM/DL (3.2-4.5); POTASSIUM 4.5 MMOL/L (3.6-5.0)
[2020-09-23 04:40] LABS: CALCIUM 7.8 MG/DL (8.5-10.1)
[2020-09-23 04:41] LABS: TOTAL PROTEIN 5.6 GM/DL (6.4-8.2)
[2020-09-23 04:43] LABS: BILIRUBIN,TOTAL 0.5 MG/DL (0.1-1.0)
[2020-09-23 04:45] LABS: CREATININE SERUM 1.57 MG/DL (0.60-1.30)
[2020-09-23 05:23] LABS: LYMPHOCYTES % (MANUAL) 86 %; NEUTROPHILS % (MANUAL) 14 %
[2020-09-23 05:24] LABS: BURR CELLS SLIGHT; ELLIPT/OVALOCYTES SLIGHT
--- NOTE | 2020-09-23 06:05 | Progress Note - Hospitalist ---
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 He received the Covid vaccine in May. He was found to have Covid-19 and B/L infiltrates. Procalcitonin of 0.2 prompting the addition of Cefepime and Azithromycin. He d oes not use oxygen at home and currently feels much better. He did have chemotherapy on July 13 and there is a higher risk for decompensation for individuals who are on chemotherapy. Subjective/Events-last exam Pt doing a little better Ate a bit better yesterday and today ABG reveals PO2 of 72 but pH good after the first sample was venous sample Transferring to fourth floor Ultrasound of the legs and ABG will be given and checking D-Dimer which is now normal Maintained on two liters of oxygen currently Appreciate pulmonary consultation Review of Systems General: Fatigue Pulmonary: Dyspnea, Cough Focused Exam Lactate Level 09/21/20 22:45: Lactic Acid Level 1.09 Objective Exam Vital Signs Vital Signs Date Time Temp Pulse Resp B/P (MAP) Pulse Ox O2 Delivery O2 Flow Rate FiO2 09/24/20 04:47 96 Vapotherm 25.00 70.00 09/24/20 04:40 70 09/24/20 04:06 36.3 72 54 133/90 (104) Capillary Refill : Less Than 3 Seconds General Appearance: No Apparent Distress, WD/WN, Chronically ill, Obese Respiratory: No Accessory Muscle Use, No Respiratory Distress, Decreased Breath Sounds Cardiovascular: Regular Rate, Rhythm Neurologic/Psychiatric: Alert, Oriented x3, No Motor/Sensory Deficits, Normal Mood/Affect Results/Procedures Lab Patient resulted labs reviewed. 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
[2020-09-23] MEDS: inSUlin ASPART (NovoLOG) 1 UNIT/0.01 ML (CHARGE PER UNIT) SC SCH ×6 (06:16→21:34)
[2020-09-23] MEDS: ASPIRIN 81 MG CHEW (CHILDREN'S ASA) PO SCH (08:34)
[2020-09-23] MEDS: meTOprolol TARTRATE 50 MG (LOPRESSOR) TAB PO SCH ×2 (08:34→20:29)
[2020-09-23] MEDS: ACYCLOVIR 400 MG TABLET (ZOVIRAX) PO SCH ×2 (08:34→20:30)
[2020-09-23] MEDS: amLODIPine 5 MG (NORVASC) TAB PO SCH (08:34)
[2020-09-23] MEDS: AZITHROMYCIN INJECTION 500 MG in NS (IVPB) 250 ML IV SCH (08:35)
[2020-09-23] MEDS: GLIMEPIRIDE 4 MG (AMARYL) TAB PO SCH ×2 (08:36→20:29)
[2020-09-23] MEDS ORDERED: NON-FORMULARY MEDICATION 1 EA EA (Insulin Aspart (Novolog Flexpen) 15 UNITS) SQ SCH (09:00)
[2020-09-23] MEDS ORDERED: INSULIN DETEMIR 60 UNIT SQ SCH (09:00)
--- NOTE | 2020-09-23 09:35 | Diagnostic Imaging Report ---
Indication: Pneumonia. Compared: 09/21 Findings: There has been substantial radiographic progression of bilateral infiltrates consistent with nonspecific pneumonia. Venous catheter tip at the lower SVC in good position. There is no pneumothorax, no convincing evidence for pleural fluid. Impression: Progressive bilateral infiltrates greater right, substantially increased from the recent comparison. Support apparatus stable with no pneumothorax or convincing evidence for pleural fluid. Dictated by: Dictated on workstation # [id number]
--- NOTE | 2020-09-23 09:52 | Pulmonary Progress Note ---
Subjective Date Seen by a Provider: Sep 23, 2020 Time Seen by a Provider: 09:47 Subjective/Events-last exam dw patient via the iPad. as per bed side RN O2 2l was added last night since patient pulse ox went down to 92-93% sob improved cough occasional; clear sputum chest pain absent exercise tolerance Review of Systems Pulmonary: Dyspnea, Cough Cardiovascular: Edema Sepsis Event Evaluation Height, Weight, BMI Height: 5'11.00" Weight: 290lbs. 0.0oz. 131.764666al; 38.88 BMI Method:Stated Focused Exam Lactate Level 09/21/20 22:45: Lactic Acid Level 1.09 Exam Exam Patient acknowledged, consented, and participated in this virtual visit which was conducted using real time audio/video Vital Signs Date Time Temp Pulse Resp B/P (MAP) Pulse Ox O2 Delivery O2 Flow Rate FiO2 09/23/20 09:00 94 Nasal Cannula 2.00 09/23/20 08:00 37.0 117 30 105/75 (85) 93 Nasal Cannula 2.00 09/23/20 06:52 101 09/23/20 06:15 37.5 09/23/20 06:15 37.5 09/23/20 04:22 92 Nasal Cannula 2.00 09/23/20 04:20 38.5 117 24 150/54 (86) 88 Room Air 09/23/20 04:14 38.5 09/23/20 01:00 111 09/23/20 00:00 37.3 114 18 146/61 (89) 92 Room Air 09/22/20 21:00 92 Room Air 09/22/20 19:55 37.4 111 12 177/75 (109) 95 Room Air 09/22/20 19:00 112 09/22/20 17:48 Room Air 09/22/20 16:00 36.3 96 18 160/77 (104) 92 Room Air 09/22/20 12:46 84 09/22/20 11:52 36.1 75 141/67 (91) 94 Nasal Cannula 2.00 09/22/20 11:09 Room Air 09/22/20 11:04 99 Nasal Cannula 2.00 I & O 09/23/20 07:00 Intake Total 1710 ml Output Total 2325 ml Balance -615 ml Height & Weight Height: 5'11.00" Weight: 290lbs. 0.0oz. 131.284347xt; 38.88 BMI Method:Stated General Appearance: No Apparent Distress, Anxious, Chronically ill, Obese, Other HEENT: PERRL/EOMI, Normal ENT Inspection, Pharynx Normal, Moist Mucous Membranes Neck: Full Range of Motion, Normal Inspection, Non Tender Respiratory: Chest Non Tender, No Accessory Muscle Use, No Respiratory Distress, Decreased Breath Sounds, Wheezing Cardiovascular: Regular Rate, Rhythm, No Edema, No Gallop, No JVD, No Murmur, Normal Peripheral Pulses Capillary Refill: Less Than 3 Seconds Extremity: Normal Capillary Refill, Normal Inspection, Normal Range of Motion, Non Tender, No Calf Tenderness, No Pedal Edema, Pedal Edema Neurologic/Psychiatric: Alert, Oriented x3, No Motor/Sensory Deficits, Normal Mood/Affect Skin: Normal Color, Warm/Dry Lymphatic: No Adenopathy Results Lab Laboratory Tests 09/21/20 21:20 09/22/20 03:05 09/23/20 04:15 Assessment/Plan Assessment/Plan Acute hypoxemic respiratory failure -in the context of COVID pneumonitis possible bacterial coinfection -o2 needs increased: we will check an ABG -ro vte: duplex of lower ext / d dimer to be trended -based on todays cxray: patient may have fluid overload/ lasix 40mg today -home O 2 eval prior to dc we will continue to watch for possible deterioration INESSA LAMB MD Sep 23, 2020 09:52
[2020-09-23] MEDS ORDERED: FUROSEMIDE 40 MG/4 ML INJ (LASIX) IVP NR (10:35)
[2020-09-23 11:11] LABS: ABG OXYGEN SATURATION 52 % (94-100); ABG PCO2 36 MMHG (35-45); ABG TCO2 19.9 MMOL/L (21.0-31.0)
[2020-09-23 11:17] LABS: ABG PH 7.34 (7.37-7.43); ABG PO2 33 MMHG (79-93); ALLENS TEST POSITIVE; INSPIRED O2 2 L; PATIENT TEMP 37; VENTILATOR NO
[2020-09-23 12:02] LABS: ABG OXYGEN SATURATION 94 % (94-100); ABG PCO2 28 MMHG (35-45); ABG PO2 71 MMHG (79-93); ABG TCO2 17.8 MMOL/L (21.0-31.0)
[2020-09-23 12:04] LABS: ALLENS TEST POSITIVE; INSPIRED O2 2 L; PATIENT TEMP 36.7; VENTILATOR NO
--- NOTE | 2020-09-23 16:51 | Diagnostic Imaging Report ---
PROCEDURE: US Venous Lower Ext Cole. TECHNIQUE: Multiple real-time grayscale images were obtained over the lower extremities in various projections, bilaterally. Additional duplex Doppler and color Doppler images were also obtained. INDICATION: COVID patient with hypoxia. The bilateral lower extremity femoropopliteal deep venous system showed normal color flow, normal compressibility and normal waveforms. No deep or visualized superficial thrombus. No mass or fluid collection documented. IMPRESSION: Normal negative bilateral lower activity venous Doppler and ultrasound exam. Dictated by: Dictated on workstation # [id number]
[2020-09-24 04:06] VITALS: BP 133/90
[2020-09-24] MEDS: CEFEPIME INJECTION 1,000 MG in WATER (STERILE) FOR INJECTION 10 ML IV SCH ×3 (04:06→20:07)
[2020-09-24 05:07] VITALS: BP 133/90
[2020-09-24] MEDS: inSUlin ASPART (NovoLOG) 1 UNIT/0.01 ML (CHARGE PER UNIT) SC SCH ×7 (05:45→21:11)
--- NOTE | 2020-09-24 06:30 | Progress Note - Hospitalist ---
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 He received the Covid vaccine in May. He was found to have Covid-19 and B/L infiltrates. Procalcitonin of 0.2 prompting the addition of Cefepime and Azithromycin. He does not use oxygen at home and currently feels much better. He did have chemotherapy on July 13 and there is a higher risk for decompensation for individuals who are on chemotherapy. Subjective/Events-last exam Pt requiring Vapotherm started at 0415 hours today C-Diff ordered for scant diarrhea at times Labs reviewed Thrombocytopenia noted After rounds and evening time he was shifted to BiPAP due to progression so he may very well need ICU transfer soon and I updated supervisor fine grading regarding bed availability Review of Systems General: Fatigue, Malaise Pulmonary: Dyspnea Focused Exam Lactate Level Objective Exam Vital Signs Vital Signs Date Time Temp Pulse Resp B/P (MAP) Pulse Ox O2 Delivery O2 Flow Rate FiO2 09/25/20 03:15 75 39 100.00 09/25/20 02:22 91 Vapotherm 100 09/25/20 00:45 36.3 136/64 (88) Capillary Refill : Less Than 3 Seconds General Appearance: No Apparent Distress, WD/WN, Chronically ill Respiratory: No Accessory Muscle Use, No Respiratory Distress, Decreased Breath Sounds Cardiovascular: Regular Rate, Rhythm Neurologic/Psychiatric: Alert, Oriented x3 Results/Procedures Lab Laboratory Tests 09/24/20 06:49 09/25/20 04:08 Patient resulted labs reviewed. Assessment/Plan Assessment and Plan Assess & Plan/Chief Complaint Assessment: COVID-19 pneumonia in vaccinated individual on chemotherapy for leukemia Acute on chronic kidney disease Mild dehydration Bacterial pneumonia Diabetes Hypertension Hyperlipidemia CAD Plan: COVID-19 protocol Monitor closely Pulmonology consultation 09/23/2020: Close observation Moved to fourth floor Appreciate pulmonary consultation Reviewed ABG first 1 was venous sample Continue antibiotics and steroids 09/24/2020: Supportive care BiPAP Vapotherm Aggressive treatment May ultimately require ICU transfer Diagnosis/Problems Diagnosis/Problems (1) COVID-19 Status: Acute (2) Hypoxia Status: Acute (3) Insulin dependent diabetes mellitus with retinopathy Status: Chronic (4) CLL (chronic lymphocytic leukemia) Status: Chronic (5) DVT prophylaxis Status: Chronic (6) HTN (hypertension) Status: Chronic KEIRY ARRINGTON DO Sep 24, 2020 06:30
[2020-09-24 07:13] LABS: BASOPHILS % (AUTO) 0 % (0-10); EOSINOPHILS % (AUTO) 0 % (0-10); HEMATOCRIT 30 % (40-54); HEMOGLOBIN 9.7 g/dL (13.3-17.7); LYMPHOCYTES # (AUTO) 5.6 10^3/uL (1.0-4.0); LYMPHOCYTES % (AUTO) 69 % (12-44); MEAN CORPUSCULAR HEMOGLOBIN 31 pg (25-34); MEAN CORPUSCULAR HGB CONC 32 g/dL (32-36); MEAN CORPUSCULAR VOLUME 97 fL (80-99); MEAN PLATELET VOLUME 10.8 fL (9.0-12.2); MONOCYTES # (AUTO) 0.3 10^3/uL (0.0-1.0); MONOCYTES % (AUTO) 4 % (0-12); NEUTROPHILS # (AUTO) 2.1 10^3/uL (1.8-7.8); NEUTROPHILS % (AUTO) 26 % (42-75); PLATELET COUNT 93 10^3/uL (130-400); WHITE BLOOD COUNT 8.1 10^3/uL (4.3-11.0)
[2020-09-24] MEDS: RT-ALBUTEROL INHALER HFA (VENTOLIN HFA) 18 GM IH SCH ×4 (07:23→20:18)
[2020-09-24 07:40] LABS: ALBUMIN 3.5 GM/DL (3.2-4.5); BILIRUBIN,TOTAL 0.5 MG/DL (0.1-1.0); CALCIUM 8.6 MG/DL (8.5-10.1); CREATININE SERUM 1.26 MG/DL (0.60-1.30); POTASSIUM 4.9 MMOL/L (3.6-5.0); TOTAL PROTEIN 6.2 GM/DL (6.4-8.2)
--- NOTE | 2020-09-24 07:49 | Diagnostic Imaging Report ---
EXAMINATION: Chest 1 view HISTORY: Pneumonia COMPARISON: 09/23/2020 FINDINGS: Heart size and pulmonary vasculature are stable. Stable patchy interstitial and airspace opacities throughout both lungs. A right-sided IJ central line is unchanged. No pleural effusion or pneumothorax. The osseous structures are intact. IMPRESSION: 1. Stable patchy interstitial and airspace opacities throughout both lungs compatible with multifocal pneumonia. Dictated by: Dictated on workstation # [id number]
[2020-09-24 08:00] VITALS: BP 108/55
[2020-09-24] MEDS: AZITHROMYCIN 250 MG TAB (ZITHROMAX) PO SCH (09:17)
[2020-09-24] MEDS: amLODIPine 5 MG (NORVASC) TAB PO SCH (09:17)
[2020-09-24] MEDS: ASPIRIN 81 MG CHEW (CHILDREN'S ASA) PO SCH (09:17)
[2020-09-24] MEDS: ACYCLOVIR 400 MG TABLET (ZOVIRAX) PO SCH ×2 (09:17→20:06)
[2020-09-24] MEDS: meTOprolol TARTRATE 50 MG (LOPRESSOR) TAB PO SCH ×2 (09:18→20:07)
[2020-09-24] MEDS: GLIMEPIRIDE 4 MG (AMARYL) TAB PO SCH ×2 (09:18→20:06)
--- NOTE | 2020-09-24 11:39 | Pulmonary Progress Note ---
Subjective Date Seen by a Provider: Sep 24, 2020 Time Seen by a Provider: 11:24 Subjective/Events-last exam 70 yo M being followed for COVID PNA, on Decadron, acyclovir, azithromycin I reviewed CXR today shows infiltrate right mid lung and also on left but no worsening pt currently on vapotherm 70% FiO2 25 lpm Pt is DNR Working harder to breathe than yesterday, coughing is same, no hemoptysis, no chest pain, no abd pain, no leg pain, pt feels a little better No vomiting, having diarrhea since 5 days, no blood, has been afebrile Sepsis Event Evaluation Height, Weight, BMI Height: 5'11.00" Weight: 290lbs. 0.0oz. 131.476088eu; 38.88 BMI Method:Stated Focused Exam Lactate Level 09/21/20 22:45: Lactic Acid Level 1.09 Exam Exam Patient acknowledged, consented, and participated in this virtual visit which was conducted using real time audio/video Vital Signs Date Time Temp Pulse Resp B/P (MAP) Pulse Ox O2 Delivery O2 Flow Rate FiO2 09/24/20 10:58 94 Vapotherm 25.00 70 09/24/20 09:00 89 Vapotherm 30.00 70 09/24/20 08:00 36.3 89 24 108/55 (72) 89 Nasal Cannula 30.00 70.00 09/24/20 07:23 92 Vapotherm 30.00 70 09/24/20 05:07 36.3 64 84 09/24/20 04:47 96 Vapotherm 25.00 70.00 09/24/20 04:40 96 Vapotherm 25.00 70 09/24/20 04:06 93 High Flow N/C 10.00 09/24/20 04:06 36.3 72 54 133/90 (104) 85 Nasal Cannula 3.00 09/23/20 23:52 36.7 70 22 105/50 (68) 92 Nasal Cannula 3.00 09/23/20 21:00 93 Nasal Cannula 2.00 09/23/20 19:13 36.5 73 18 136/62 (86) 90 Nasal Cannula 2.00 09/23/20 16:12 36.4 70 20 119/56 (77) 91 Nasal Cannula 2.00 09/23/20 13:26 36.4 69 26 131/54 (74) 94 Nasal Cannula 2.00 I & O 09/24/20 07:00 Intake Total 1390 ml Balance 1390 ml Height & Weight Height: 5'11.00" Weight: 290lbs. 0.0oz. 131.999446en; 38.88 BMI Method:Stated General Appearance: No Apparent Distress, WD/WN, Chronically ill, Mild D istress, Obese HEENT: PERRL/EOMI, Normal ENT Inspection, Pharynx Normal, Moist Mucous Membranes Neck: Full Range of Motion, Normal Inspection, Non Tender Respiratory: No Accessory Muscle Use, No Respiratory Distress, Decreased Breath Sounds, Rhonci Cardiovascular: Regular Rate, Rhythm Capillary Refill: Less Than 3 Seconds Gastrointestinal: normal bowel sounds, non tender, soft Extremity: Normal Capillary Refill, Normal Inspection, Normal Range of Motion, Non Tender, No Calf Tenderness, No Pedal Edema, Pedal Edema Neurologic/Psychiatric: Alert, Oriented x3, No Motor/Sensory Deficits, Normal Mood/Affect Skin: Normal Color, Warm/Dry Lymphatic: No Adenopathy Results Lab Laboratory Tests 09/23/20 04:15 09/24/20 06:49 Assessment/Plan Assessment/Plan Looks a little worse, will continue present meds, check for C diff as has 5d of diarrhea will continue to monitor oxygen needs Time spent with patient (mins): 15 CONNIE GOLDBERG MD Sep 24, 2020 11:39
[2020-09-24 11:44] VITALS: BP 131/59
[2020-09-24 15:38] VITALS: BP 131/69
[2020-09-24 19:18] VITALS: BP 128/61
[2020-09-25] VITALS (13 sets, daily range): BP systolic 115–174; BP diastolic 56–124
[2020-09-25] MEDS: RT-ALBUTEROL INHALER HFA (VENTOLIN HFA) 18 GM IH SCH ×4 (02:22→22:03)
[2020-09-25 04:32] LABS: BASOPHILS % (AUTO) 0 % (0-10); EOSINOPHILS % (AUTO) 0 % (0-10); HEMOGLOBIN 9.8 g/dL (13.3-17.7); MEAN CORPUSCULAR HEMOGLOBIN 32 pg (25-34)
[2020-09-25 04:34] LABS: HEMATOCRIT 29 % (40-54); LYMPHOCYTES # (AUTO) 3.6 10^3/uL (1.0-4.0); LYMPHOCYTES % (AUTO) 67 % (12-44); MEAN CORPUSCULAR HGB CONC 33 g/dL (32-36); MEAN CORPUSCULAR VOLUME 95 fL (80-99); MEAN PLATELET VOLUME 10.6 fL (9.0-12.2); MONOCYTES # (AUTO) 0.1 10^3/uL (0.0-1.0); MONOCYTES % (AUTO) 1 % (0-12); NEUTROPHILS # (AUTO) 1.7 10^3/uL (1.8-7.8); NEUTROPHILS % (AUTO) 31 % (42-75); PLATELET COUNT 86 10^3/uL (130-400); WHITE BLOOD COUNT 5.4 10^3/uL (4.3-11.0)
[2020-09-25 04:42] LABS: ALBUMIN 3.4 GM/DL (3.2-4.5); POTASSIUM 4.8 MMOL/L (3.6-5.0)
[2020-09-25 04:43] LABS: CALCIUM 8.5 MG/DL (8.5-10.1)
[2020-09-25 04:44] LABS: TOTAL PROTEIN 6.3 GM/DL (6.4-8.2)
[2020-09-25 04:46] LABS: BILIRUBIN,TOTAL 0.6 MG/DL (0.1-1.0)
[2020-09-25 04:48] LABS: CREATININE SERUM 0.92 MG/DL (0.60-1.30)
[2020-09-25] MEDS: inSUlin ASPART (NovoLOG) 1 UNIT/0.01 ML (CHARGE PER UNIT) SC SCH ×6 (05:17→21:29)
[2020-09-25] MEDS: CEFEPIME INJECTION 1,000 MG in WATER (STERILE) FOR INJECTION 10 ML IV SCH ×2 (05:39→12:28)
--- NOTE | 2020-09-25 06:17 | Progress Note - Hospitalist ---
Subjective HPI/CC On Admission Date Seen by Provider: Sep 25, 2020 Time Seen by Provider: 11:00 CC: Covid-19 with SOB HPI: This is a 70yoWM clinic pt of Dr. Samuel who has a hx of CLL in addition to chronic kidney disease who presents to the ER with fever and SOB. He received the Covid vaccine in May. He was found to have Covid-19 and B/L infiltrates. Procalcitonin of 0.2 prompting the addition of Cefepime and Azithromycin. He does not use oxygen at home and currently feels much better. He did have chemotherapy on July 13 and there is a higher risk for decompensation for individuals who are on chemotherapy. Subjective/Events-last exam Pt currently prone, maxed on BiPAP Lovenox added although D-dimer is negative, we will go ahead and initiate that but monitor platelet count Convalescent plasma may be an option Patient is a DO NOT RESUSCITATE and DO NOT INTUBATE Moved him up to the ICU for close monitoring D-dimer normal Very grave prognosis Review of Systems General: Fatigue, Malaise Pulmonary: Dyspnea Objective Exam Vital Signs Vital Signs Date Time Temp Pulse Resp B/P (MAP) Pulse Ox O2 Delivery O2 Flow Rate FiO2 09/25/20 19:49 35.8 09/25/20 19:04 75 35 95 80.00 09/25/20 18:00 133/81 (98) NIV Bilevel 09/25/20 09:00 80 Capillary Refill : Less Than 3 Seconds General Appearance: No Apparent Distress, WD/WN, Chronically ill Respiratory: No Accessory Muscle Use, No Respiratory Distress, Decreased Breath Sounds Cardiovascular: Regular Rate, Rhythm Neurologic/Psychiatric: Alert Results/Procedures Lab Laboratory Tests 09/25/20 04:08 Patient resulted labs reviewed. Assessment/Plan Assessment and Plan Assess & Plan/Chief Complaint Assessment: COVID-19 pneumonia in vaccinated individual on chemotherapy for leukemia Acute on chronic kidney disease Mild dehydration Bacterial pneumonia Diabetes Hypertension Hyperlipidemia CAD Plan: COVID-19 protocol Monitor closely Pulmonology consultation 09/23/2020: Close observation Moved to fourth floor Appreciate pulmonary consultation Reviewed ABG first 1 was venous sample Continue antibiotics and steroids 09/24/2020: Supportive care BiPAP Vapotherm Aggressive treatment May ultimately require ICU transfer 09/25/2020: Moved to ICU Very poor prognosis DO NOT INTUBATE DO NOT RESUSCITATE Diagnosis/Problems Diagnosis/Problems (1) COVID-19 Status: Acute (2) Hypoxia Status: Acute (3) 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
--- NOTE | 2020-09-25 07:10 | Diagnostic Imaging Report ---
REASON FOR EXAMINATION: Pneumonia. Upright AP portable chest was obtained and compared to yesterday. FINDINGS: Heart size and mediastinum are within normal limits. Central line is unchanged. Bilateral infiltrates right greater than left, increased since yesterday. No effusions, pneumothorax or pneumomediastinum. IMPRESSION: 1. Increasing bilateral infiltrates consistent with worsening pneumonia. Dictated by: Dictated on workstation # [id number]
[2020-09-25] MEDS: GLIMEPIRIDE 4 MG (AMARYL) TAB PO SCH ×2 (09:42→21:41)
[2020-09-25] MEDS: ACYCLOVIR 400 MG TABLET (ZOVIRAX) PO SCH ×2 (09:42→21:41)
[2020-09-25] MEDS: ASPIRIN 81 MG CHEW (CHILDREN'S ASA) PO SCH (09:43)
[2020-09-25] MEDS: meTOprolol TARTRATE 50 MG (LOPRESSOR) TAB PO SCH ×2 (09:43→21:42)
[2020-09-25] MEDS: amLODIPine 5 MG (NORVASC) TAB PO SCH (09:43)
[2020-09-25] MEDS: AZITHROMYCIN 250 MG TAB (ZITHROMAX) PO SCH (09:43)
--- NOTE | 2020-09-25 12:57 | Pulmonary Progress Note ---
Subjective Date Seen by a Provider: Sep 25, 2020 Time Seen by a Provider: 13:10 Subjective/Events-last exam Worsening CXR especially RLL and increased oxygen needs, now up to 80% with SpO2 improved to high 90's, Spont RR in 30's, Drops to 70's when BiPAP off currently on Cefepime, azithromycin, decadron IV, acyclovir I suspect this is again bacterial PNA, To get convalescent plasma today Started on bid Lovenox, recent doppler leg negative for DVT Review of Systems Pulmonary: Dyspnea, Cough Sepsis Event Evaluation Height, Weight, BMI Height: " Weight: 290lbs. 0.0oz. 131.671252ao; 38.88 BMI Method:Stated Exam Exam Patient acknowledged, consented, and participated in this virtual visit which w as conducted using real time audio/video Vital Signs Date Time Temp Pulse Resp B/P (MAP) Pulse Ox O2 Delivery O2 Flow Rate FiO2 09/25/20 11:07 36.1 68 32 122/56 (78) 98 NIV Bilevel 100.00 09/25/20 09:00 98 NIV Bilevel 40.00 80 09/25/20 08:22 81 26 97 100.00 09/25/20 07:57 36.0 81 26 119/56 (77) 97 NIV Bilevel 100.00 09/25/20 04:55 35.9 81 30 147/67 (93) 98 NIV Bilevel 100.00 09/25/20 03:15 75 39 100.00 09/25/20 02:22 91 Vapotherm 40.00 100 09/25/20 00:45 36.3 57 28 136/64 (88) 97 Vapotherm 40.00 100.00 09/24/20 21:00 40.00 100 09/24/20 20:18 94 Vapotherm 30.00 80 09/24/20 20:10 Vapotherm 30.00 80 09/24/20 19:18 36.6 75 20 128/61 (83) 94 Vapotherm 30.00 80.00 09/24/20 15:38 36.9 85 20 131/69 (89) 90 Vapotherm 25.00 65.00 09/24/20 14:20 93 Vapotherm 25.00 65 I & O 09/25/20 07:00 Intake Total 1400 ml Output Total 1765 ml Balance -365 ml Height & Weight Height: 5'11.00" Weight: 290lbs. 0.0oz. 131.086220so; 38.88 BMI Method:Stated General Appearance: No Apparent Distress, WD/WN, Chronically ill, Mild Distress, Obese, Severe Distress HEENT: PERRL/EOMI, Normal ENT Inspection, Pharynx Normal, Moist Mucous Membranes Neck: Full Range of Motion, Normal Inspection, Non Tender Respiratory: No Accessory Muscle Use, No Respiratory Distress, Decreased Breath Sounds, Rhonci, Other (in more resp distress than yesterday) Cardiovascular: Regular Rate, Rhythm Capillary Refill: Less Than 3 Seconds Gastrointestinal: normal bowel sounds, non tender, soft Extremity: Normal Capillary Refill, Normal Inspection, Normal Range of Motion, Non Tender, No Calf Tenderness, No Pedal Edema, Pedal Edema Neurologic/Psychiatric: Alert, Oriented x3, No Motor/Sensory Deficits, Normal Mood/Affect Skin: Normal Color, Warm/Dry Lymphatic: No Adenopathy Results Lab Laboratory Tests 09/24/20 06:49 09/25/20 04:08 Assessment/Plan Assessment/Plan Worsening CXR, oxygenation probably from bacterial PNA, would re culture, change to IV merpopenem Given degree of worsening, I would transfer to MICU, pt requests DNR/DNI Will speak with hospitalist CONNIE GOLDBERG MD Sep 25, 2020 12:57
[2020-09-25] MEDS ORDERED: DEXTROSE 50% 50 ML (IMS) SYR ONE (16:04)
[2020-09-25] MEDS ORDERED: DEXTROSE 50% 50 ML (IMS) SYR IV ONE (16:15)
--- NOTE | 2020-09-25 16:50 | Tele-ICU Progress Note ---
Progress Note Available charting reviewed. Seen by Dr Salgado today for pulmonary consult Now in ICU, hemodynamically stable Video assessment done, discussed with RN On BIPAP rr 30 , TV 600 , MV 24L - 17/10 80% 09/25-Transferred to ICU due to worsening CXR and oxygenation ACUTE RESP FAILURE - Covid , PNA COVID-19 pneumonia in vaccinated individual on chemotherapy for leukemia - decardon Iv to cont - CCP planned - immunocompromised - not candidate for actemra with new bact infection Superimposed bacterial PNA, RLL -re cultured -abx changed to IV meropenem DM II - hypoglycemia today - received 60 of levemir 9 am , NPO today on BIPAP - ISS , hold long acting insulin for now CLL, on chemo as per chart - pt requests DNR/DNI Plans as delineated by bedside physicians / consultants mentioned above Discussed with RN to reach out if any questions or concerns Focused Exam Height, Weight, BMI Height: 5'11.00" Weight: 290lbs. 0.0oz. 131.698031nh; 38.88 BMI Method:Stated FREDDIE FIGUEREDO MD Sep 25, 2020 16:50
[2020-09-25] MEDS: MEROPENEM 1,000 MG in WATER (STERILE) FOR INJECTION 20 ML IV SCH ×2 (17:38→21:41)
[2020-09-25] MEDS ORDERED: ENOXAPARIN 40 MG/0.4 ML (LOVENOX) SYR SC ONE (21:00)
[2020-09-25] MEDS: guaiFENesin/DM (ROBITUSSIN DM) 10 ML UDC PO PRN (21:41)
[2020-09-25] MEDS: ACETAMINOPHEN 325 MG TABLET PO PRN (21:42)
[2020-09-26] VITALS (25 sets, daily range): BP systolic 129–176; BP diastolic 61–86
[2020-09-26] MEDS: RT-ALBUTEROL INHALER HFA (VENTOLIN HFA) 18 GM IH SCH ×4 (03:08→22:36)
[2020-09-26] MEDS: ACETAMINOPHEN 325 MG TABLET PO PRN ×2 (04:03→22:40)
[2020-09-26] MEDS: inSUlin ASPART (NovoLOG) 1 UNIT/0.01 ML (CHARGE PER UNIT) SC SCH ×6 (05:22→22:41)
[2020-09-26] MEDS: MEROPENEM 1,000 MG in WATER (STERILE) FOR INJECTION 20 ML IV SCH ×3 (05:22→22:40)
[2020-09-26] MEDS ORDERED: DEXTROSE 50% 50 ML (IMS) SYR IV ONE (05:30)
--- NOTE | 2020-09-26 06:45 | Progress Note - Hospitalist ---
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 He received the Covid vaccine in May. He was found to have Covid-19 and B/L infiltrates. Procalcitonin of 0.2 prompting the addition of Cefepime and Azithromycin. He does not use oxygen at home and currently feels much better. He did have chemotherapy on July 13 and there is a higher risk for decompensation for individuals who are on chemotherapy. Subjective/Events-last exam Pt doing fairly well BiPAP maintained Checked meds and labs Hypoglycemia continues, holding all insulin and giving him an amp of D50 Mother of Covid and he was notified by the family Review of Systems General: Fatigue, Malaise Pulmonary: Dyspnea, Cough Objective Exam Vital Signs Vital Signs Date Time Temp Pulse Resp B/P (MAP) Pulse Ox O2 Delivery O2 Flow Rate FiO2 09/27/20 06:00 81 138/75 (96) 87 NIV Bilevel 70.00 09/27/20 04:00 30 09/27/20 02:52 100 09/26/20 20:00 36.6 Capillary Refill : Less Than 3 Seconds General Appearance: No Apparent Distress, WD/WN, Chronically ill, Obese Respiratory: No Accessory Muscle Use, No Respiratory Distress, Decreased Breath Sounds Cardiovascular: Regular Rate, Rhythm Neurologic/Psychiatric: Alert, Oriented x3, Depressed Affect Results/Procedures Lab Laboratory Tests 09/26/20 06:28 09/27/20 03:22 Patient resulted labs reviewed. Assessment/Plan Assessment and Plan Assess & Plan/Chief Complaint Assessment: COVID-19 pneumonia in vaccinated individual on chemotherapy for leukemia Acute on chronic kidney disease Mild dehydration Bacterial pneumonia Diabetes Hypertension Hyperlipidemia CAD Plan: COVID-19 protocol Monitor closely Pulmonology consultation 09/23/2020: Close observation Moved to fourth floor Appreciate pulmonary consultation Reviewed ABG first 1 was venous sample Continue antibiotics and steroids 09/24/2020: Supportive care BiPAP Vapotherm Aggressive treatment May ultimately require ICU transfer 09/25/2020: Moved to ICU Very poor prognosis DO NOT INTUBATE DO NOT RESUSCITATE 09/26/2020: Maintain on BiPAP in ICU Monitor closely Diagnosis/Problems Diagnosis/Problems (1) COVID-19 Status: Acute (2) Hypoxia Status: Acute (3) 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
[2020-09-26 06:47] LABS: POTASSIUM 5.9 MMOL/L (3.6-5.0)
[2020-09-26 06:49] LABS: CALCIUM 8.3 MG/DL (8.5-10.1)
[2020-09-26 06:53] LABS: CREATININE SERUM 0.86 MG/DL (0.60-1.30); PHOSPHORUS 3.6 MG/DL (2.3-4.7)
[2020-09-26 06:55] LABS: MAGNESIUM 2.7 MG/DL (1.6-2.4)
[2020-09-26] MEDS: ACYCLOVIR 400 MG TABLET (ZOVIRAX) PO SCH ×2 (09:09→22:40)
[2020-09-26] MEDS: amLODIPine 5 MG (NORVASC) TAB PO SCH (09:09)
[2020-09-26] MEDS: ASPIRIN 81 MG CHEW (CHILDREN'S ASA) PO SCH (09:09)
[2020-09-26] MEDS: meTOprolol TARTRATE 50 MG (LOPRESSOR) TAB PO SCH ×2 (09:10→22:39)
[2020-09-26] MEDS: AZITHROMYCIN 250 MG TAB (ZITHROMAX) PO SCH (09:10)
--- NOTE | 2020-09-26 11:24 | Tele-ICU Progress Note ---
Subjective Date Seen by a Provider: Sep 26, 2020 Time Seen by a Provider: 10:15 Subjective/Events-last exam Patient aparticipated in this virtual visit which was conducted using real time audio/video. Thank you for asking us to see this patient for respiratory insufficiency and distress due to Covid pna.. HPC: Recent events: No change overnight on BiPAP 16/10 70%. Low BG. PMH: Leukemia on chemo SH: smoking history neg. FH: Non-contributory PE: Obese. VSS HR 70 nsr BP 160/89 30 RR O2 93 % sat on BiPAP HEENT: No obvious masses, adenopathy or JVD. Chest: clear to auscultation. CV: RRR S1 S2 No murmur or added sounds. Abd: Non-tender. Bowel sounds . : Unremarkable. [place] . [employer] WORK[employer]/psychiatric: Alert and oriented, grossly intact. No obvious focal findings. Extremities: edema. Capillary refill < 3 seconds. Skin: unremarkable. Results: Elevated BUN. Decreased Na 134. A/P: Respiratory insufficiency/distress: cont BiPAP Available chart/ vitals / labs / Images reviewed. Video assessment done using teleICU camera, rest of exam as per RN. Respiratory: Continue present management with BiPAP Monitor for increasing oxygenation needs and/or need for intubation.. Critical Care: critically ill patient. Discussed with TAMMY Pierre. Asked RN to reach out to eICU if any questions or concerns later. Time spent with patient/coordination of care with other health professionals (mins): 15. Sepsis Event Evaluation Sepsis Stage: Ruled Out Height, Weight, BMI Height: 5'11.00" Weight: 290lbs. 0.0oz. 131.991674up; 38.88 BMI Method:Stated Focused Exam Sepsis Stage: Ruled Out Exam Exam Patient acknowledged, consented, and participated in this virtual visit which was conducted using real time audio/video Vital Signs Date Time Temp Pulse Resp B/P (MAP) Pulse Ox O2 Delivery O2 Flow Rate FiO2 09/26/20 10:00 73 24 93 NIV Bilevel 70.00 09/26/20 09:00 70 35 169/71 (103) 93 NIV Bilevel 70.00 09/26/20 08:42 NIV Bilevel 70.00 09/26/20 08:42 70.00 09/26/20 08:34 76 31 96 80.00 09/26/20 08:00 74 31 159/74 (102) 96 NIV Bilevel 80.00 09/26/20 07:56 35.3 09/26/20 07:00 74 28 165/72 (103) 98 NIV Bilevel 80.00 09/26/20 07:00 66 09/26/20 06:00 68 31 158/70 (99) 96 NIV Bilevel 80.00 09/26/20 05:00 69 31 148/73 (98) 93 NIV Bilevel 80.00 09/26/20 04:00 69 31 136/65 (88) 96 NIV Bilevel 80.00 09/26/20 03:06 74 28 96 80.00 09/26/20 03:00 72 29 147/71 (96) 98 NIV Bilevel 80.00 09/26/20 02:00 50 38 147/72 (97) 96 NIV Bilevel 80.00 09/26/20 01:00 62 53 138/61 (86) 97 NIV Bilevel 80.00 09/26/20 01:00 64 09/26/20 00:00 62 55 134/80 (98) 96 NIV Bilevel 80.00 09/25/20 23:03 35.6 09/25/20 23:00 65 25 139/72 (94) 93 NIV Bilevel 80.00 09/25/20 22:02 77 31 96 80.00 09/25/20 22:00 75 25 115/71 (86) 97 NIV Bilevel 80.00 09/25/20 21:00 98 NIV Bilevel 40.00 80 09/25/20 21:00 79 35 174/124 (141) 98 NIV Bilevel 80.00 09/25/20 20:00 87 24 154/87 (109) 98 NIV Bilevel 80.00 09/25/20 19:49 35.8 09/25/20 19:04 75 35 95 80.00 09/25/20 19:00 78 09/25/20 19:00 103 33 140/79 (99) 94 NIV Bilevel 80.00 09/25/20 18:00 72 36 133/81 (98) 95 NIV Bilevel 70.00 09/25/20 17:39 NIV Bilevel 70.00 09/25/20 17:00 65 29 129/63 (85) 95 NIV Bilevel 80.00 09/25/20 16:33 70 09/25/20 16:04 35.7 70 22 121/78 (92) 93 NIV Bilevel 80.00 09/25/20 15:17 36.0 68 28 142/66 (91) 94 NIV Bilevel 100.00 09/25/20 14:49 69 28 93 80.00 I & O 09/26/20 07:00 Intake Total 630 ml Output Total 2250 ml Balance -1620 ml Height & Weight Height: 5'11.00" Weight: 290lbs. 0.0oz. 131.303651ov; 38.88 BMI Method:Stated General Appearance: No Apparent Distress, WD/WN, Chronically ill HEENT: PERRL/EOMI, Normal ENT Inspection, Pharynx Normal, Moist Mucous Membranes Neck: Full Range of Motion, Normal Inspection, Non Tender Respiratory: No Accessory Muscle Use, No Respiratory Distress, Decreased Breath Sounds Cardiovascular: Regular Rate, Rhythm Capillary Refill: Less Than 3 Seconds Gastrointestinal: normal bowel sounds, non tender, soft Extremity: Normal Capillary Refill, Normal Inspection, Normal Range of Motion, Non Tender, No Calf Tenderness, No Pedal Edema, Pedal Edema Neurologic/Psychiatric: Alert Skin: Normal Color, Warm/Dry Lymphatic: No Adenopathy Results Lab Laboratory Tests 09/25/20 04:08 09/26/20 06:28 Assessment/Plan Assessment/Plan See free text. Critical Care: Critically Ill Patient Time spent on discussion(mins): 0 Diagnosis/Problems Diagnosis/Problems (1) Covid (2) SILVERIO Oseguera MD Sep 26, 2020 11:24
[2020-09-26] MEDS: GLIMEPIRIDE 4 MG (AMARYL) TAB PO SCH ×2 (13:19→22:47)
[2020-09-26] MEDS ORDERED: NS IV 1000 ML 1,000 ML IV SCH (13:45)
[2020-09-26] MEDS: NS IV 1000 ML 1,000 ML IV SCH (14:19)
[2020-09-26] MEDS: guaiFENesin/DM (ROBITUSSIN DM) 10 ML UDC PO PRN (14:56)
[2020-09-27] VITALS (27 sets, daily range): BP systolic 97–178; BP diastolic 53–103
[2020-09-27] MEDS: ONDANSETRON 4 MG/2 ML (SDV) Z0FRAN IVP PRN ×2 (00:23→04:31)
[2020-09-27] MEDS: NS IV 1000 ML 1,000 ML IV SCH ×2 (01:49→06:16)
[2020-09-27] MEDS: RT-ALBUTEROL INHALER HFA (VENTOLIN HFA) 18 GM IH SCH ×4 (02:51→19:29)
[2020-09-27 04:00] LABS: BASOPHILS % (AUTO) 0 % (0-10); EOSINOPHILS % (AUTO) 0 % (0-10); HEMATOCRIT 28 % (40-54); HEMOGLOBIN 9.2 g/dL (13.3-17.7); LYMPHOCYTES # (AUTO) 3.9 10^3/uL (1.0-4.0); LYMPHOCYTES % (AUTO) 56 % (12-44); MEAN CORPUSCULAR HEMOGLOBIN 32 pg (25-34); MEAN CORPUSCULAR HGB CONC 33 g/dL (32-36); MEAN CORPUSCULAR VOLUME 95 fL (80-99); MONOCYTES # (AUTO) 0.4 10^3/uL (0.0-1.0); MONOCYTES % (AUTO) 6 % (0-12); NEUTROPHILS # (AUTO) 2.6 10^3/uL (1.8-7.8); NEUTROPHILS % (AUTO) 38 % (42-75); PLATELET COUNT 84 10^3/uL (130-400)
[2020-09-27 04:13] LABS: POTASSIUM 5.7 MMOL/L (3.6-5.0)
[2020-09-27 04:15] LABS: CALCIUM 8.3 MG/DL (8.5-10.1)
[2020-09-27 04:19] LABS: CREATININE SERUM 0.83 MG/DL (0.60-1.30); PHOSPHORUS 2.6 MG/DL (2.3-4.7)
[2020-09-27 04:21] LABS: MAGNESIUM 2.6 MG/DL (1.6-2.4)
[2020-09-27] MEDS: inSUlin ASPART (NovoLOG) 1 UNIT/0.01 ML (CHARGE PER UNIT) SC SCH ×5 (05:55→21:04)
[2020-09-27] MEDS: MEROPENEM 1,000 MG in WATER (STERILE) FOR INJECTION 20 ML IV SCH ×3 (06:16→21:12)
--- NOTE | 2020-09-27 06:54 | Progress Note - Hospitalist ---
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 He received the Covid vaccine in May. He was found to have Covid-19 and B/L infiltrates. Procalcitonin of 0.2 prompting the addition of Cefepime and Azithromycin. He does not use oxygen at home and currently feels much better. He did have chemotherapy on July 13 and there is a higher risk for decompensation for individuals who are on chemotherapy. Subjective/Events-last exam Patient remained stable Up in a chair Maintain on Vapotherm Adding bowel regimen Had some nausea and vomiting last night Proton pump inhibitor ordered Lovenox ordered Monitor closely Review of Systems Pulmonary: Dyspnea Objective Exam Vital Signs Vital Signs Date Time Temp Pulse Resp B/P (MAP) Pulse Ox O2 Delivery O2 Flow Rate FiO2 09/28/20 05:00 86 38 168/77 (100) 93 NIV Bilevel 70.00 09/28/20 04:00 36.7 09/28/20 04:00 70 Capillary Refill : Less Than 3 Seconds General Appearance: No Apparent Distress, WD/WN, Anxious, Chronically ill Respiratory: No Accessory Muscle Use, No Respiratory Distress, Decreased Breath Sounds Cardiovascular: Regular Rate, Rhythm Neurologic/Psychiatric: Alert, Oriented x3 Results/Procedures Lab Laboratory Tests 09/28/20 03:55 Patient resulted labs reviewed. Assessment/Plan Assessment and Plan Assess & Plan/Chief Complaint Assessment: COVID-19 pneumonia in vaccinated individual on chemotherapy for leukemia Acute on chronic kidney disease Mild dehydration Bacterial pneumonia Diabetes Hypertension Hyperlipidemia CAD Plan: COVID-19 protocol Monitor closely Pulmonology consultation 09/23/2020: Close observation Moved to fourth floor Appreciate pulmonary consultation Reviewed ABG first 1 was venous sample Continue antibiotics and steroids 09/24/2020: Supportive care BiPAP Vapotherm Aggressive treatment May ultimately require ICU transfer 09/25/2020: Moved to ICU Very poor prognosis DO NOT INTUBATE DO NOT RESUSCITATE 09/26/2020: Maintain on BiPAP in ICU Monitor closely 09/27/2020: Supportive care Maintain on Vapotherm Critical Care Critically Ill Patient Diagnosis/Problems Diagnosis/Problems (1) COVID-19 Status: Acute (2) Hypoxia Status: Acute (3) 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
--- NOTE | 2020-09-27 08:27 | Tele-ICU Progress Note ---
Progress Note video rounds completed 70 y/o obese male with CLL and COVID PNA. Patient is DNR Now on NIV with settings of 16/10 and FIO2 70% PE: appears comfortable lying in bed with BIPAP on Pulse: 82 NSR BP: 144/66 RR: 38 O2 sats: 88% LABS: WBC 7 Hgb: 9.2 Plts: 84 Na: 138 K; 5.7 Cl: 107 CO2 20 BUN: 33 Creat: 0.83 Glu: 173 Meds: On Decaderon 6mg /day Meropenam for PNA Insulin No heparin due to low plts PLAN: continue full supportive care for COVID PNA Focused Exam Sepsis Stage: Sepsis Possible Source: Pulmonary Height, Weight, BMI Height: 5'11.00" Weight: 290lbs. 0.0oz. 131.762560ri; 38.88 BMI Method:Stated CONNIE CASAREZ MD Sep 27, 2020 08:27
[2020-09-27] MEDS: amLODIPine 5 MG (NORVASC) TAB PO SCH (09:38)
[2020-09-27] MEDS: ACYCLOVIR 400 MG TABLET (ZOVIRAX) PO SCH ×2 (09:38→21:04)
[2020-09-27] MEDS: ASPIRIN 81 MG CHEW (CHILDREN'S ASA) PO SCH (09:38)
[2020-09-27] MEDS: AZITHROMYCIN 250 MG TAB (ZITHROMAX) PO SCH (09:38)
[2020-09-27] MEDS: meTOprolol TARTRATE 50 MG (LOPRESSOR) TAB PO SCH ×2 (09:38→21:04)
[2020-09-27] MEDS: GLIMEPIRIDE 4 MG (AMARYL) TAB PO SCH (09:42)
[2020-09-27] MEDS: ENOXAPARIN 40 MG/0.4 ML (LOVENOX) SYR SC SCH (09:43)
[2020-09-27] MEDS: PANTOPRAZOLE 40 MG (PROTONIX) TAB PO SCH (09:43)
[2020-09-27] MEDS ORDERED: DOCUSATE SODIUM 100 MG (COLACE) CAP PO PRN (12:30)
[2020-09-27] MEDS: polyethylene glycoL POWDER 17 GM (MIRALAX) PACK PO SCH (21:04)
[2020-09-27] MEDS: SENNA W/DOCUSATE (SENOKOT S) TABLET PO SCH (21:04)
[2020-09-28] VITALS (24 sets, daily range): BP systolic 109–172; BP diastolic 53–99
[2020-09-28] MEDS: NS IV 1000 ML 1,000 ML IV SCH ×2 (02:02→04:01)
[2020-09-28] MEDS: RT-ALBUTEROL INHALER HFA (VENTOLIN HFA) 18 GM IH SCH ×4 (02:20→20:42)
[2020-09-28 04:07] LABS: EOSINOPHILS % (AUTO) 0 % (0-10); HEMOGLOBIN 9.5 g/dL (13.3-17.7)
[2020-09-28 04:09] LABS: BASOPHILS % (AUTO) 0 % (0-10); HEMATOCRIT 28 % (40-54); LYMPHOCYTES # (AUTO) 4.1 10^3/uL (1.0-4.0); LYMPHOCYTES % (AUTO) 56 % (12-44); MEAN CORPUSCULAR HEMOGLOBIN 32 pg (25-34); MEAN CORPUSCULAR HGB CONC 34 g/dL (32-36); MEAN CORPUSCULAR VOLUME 96 fL (80-99); MEAN PLATELET VOLUME 11.3 fL (9.0-12.2); MONOCYTES # (AUTO) 0.2 10^3/uL (0.0-1.0); MONOCYTES % (AUTO) 2 % (0-12); NEUTROPHILS % (AUTO) 41 % (42-75); PLATELET COUNT 70 10^3/uL (130-400); WHITE BLOOD COUNT 7.2 10^3/uL (4.3-11.0)
[2020-09-28 04:23] LABS: POTASSIUM 5.8 MMOL/L (3.6-5.0)
[2020-09-28 04:25] LABS: CALCIUM 7.9 MG/DL (8.5-10.1)
[2020-09-28 04:29] LABS: CREATININE SERUM 0.75 MG/DL (0.60-1.30); PHOSPHORUS 2.4 MG/DL (2.3-4.7)
[2020-09-28 04:31] LABS: MAGNESIUM 2.5 MG/DL (1.6-2.4)
[2020-09-28] MEDS: inSUlin ASPART (NovoLOG) 1 UNIT/0.01 ML (CHARGE PER UNIT) SC SCH ×4 (05:20→20:06)
[2020-09-28] MEDS: MEROPENEM 1,000 MG in WATER (STERILE) FOR INJECTION 20 ML IV SCH ×3 (05:45→21:03)
--- NOTE | 2020-09-28 06:20 | Progress Note - Hospitalist ---
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 He received the Covid vaccine in May. He was found to have Covid-19 and B/L infiltrates. Procalcitonin of 0.2 prompting the addition of Cefepime and Azithromycin. He d oes not use oxygen at home and currently feels much better. He did have chemotherapy on July 13 and there is a higher risk for decompensation for individuals who are on chemotherapy. Subjective/Events-last exam Pt not in a good place Wants to give up Appears to be very fatigued Vapotherm is on 70% Platelet count is going down Very difficult situation Updated daughter at 1900 hrs. Review of Systems General: Fatigue, Malaise Pulmonary: Dyspnea Objective Exam Vital Signs Vital Signs Date Time Temp Pulse Resp B/P (MAP) Pulse Ox O2 Delivery O2 Flow Rate FiO2 09/29/20 04:14 NIV Bilevel 80.00 09/29/20 03:49 37.3 09/29/20 03:45 100 80 09/29/20 03:00 84 33 142/64 (101) Capillary Refill : Less Than 3 Seconds General Appearance: No Apparent Distress, WD/WN, Chronically ill Respiratory: No Accessory Muscle Use, No Respiratory Distress, Decreased Breath Sounds Cardiovascular: Regular Rate, Rhythm Neurologic/Psychiatric: Alert, Oriented x3, Depressed Affect Results/Procedures Lab Patient resulted labs reviewed. Assessment/Plan Assessment and Plan Assess & Plan/Chief Complaint Assessment: COVID-19 pneumonia in vaccinated individual on chemotherapy for leukemia Acute on chronic kidney disease Mild dehydration Bacterial pneumonia Diabetes Hypertension Hyperlipidemia CAD Plan: COVID-19 protocol Monitor closely Pulmonology consultation 09/23/2020: Close observation Moved to fourth floor Appreciate pulmonary consultation Reviewed ABG first 1 was venous sample Continue antibiotics and steroids 09/24/2020: Supportive care BiPAP Vapotherm Aggressive treatment May ultimately require ICU transfer 09/25/2020: Moved to ICU Very poor prognosis DO NOT INTUBATE DO NOT RESUSCITATE 09/26/2020: Maintain on BiPAP in ICU Monitor closely 09/27/2020: Supportive care Maintain on Vapotherm 09/28/2020: Supportive care Monitor closely Vapotherm ICU Critical Care Critically Ill Patient Diagnosis/Problems Diagnosis/Problems (1) COVID-19 Status: Acute (2) Hypoxia Status: Acute (3) 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
[2020-09-28] MEDS: amLODIPine 5 MG (NORVASC) TAB PO SCH (08:05)
[2020-09-28] MEDS: PANTOPRAZOLE 40 MG (PROTONIX) TAB PO SCH (08:05)
[2020-09-28] MEDS: meTOprolol TARTRATE 50 MG (LOPRESSOR) TAB PO SCH ×2 (08:05→20:06)
[2020-09-28] MEDS: ASPIRIN 81 MG CHEW (CHILDREN'S ASA) PO SCH (08:05)
[2020-09-28] MEDS: ACYCLOVIR 400 MG TABLET (ZOVIRAX) PO SCH ×2 (08:05→20:06)
[2020-09-28] MEDS: SENNA W/DOCUSATE (SENOKOT S) TABLET PO SCH ×2 (08:05→20:06)
--- NOTE | 2020-09-28 12:13 | Tele-ICU Progress Note ---
Subjective Date Seen by a Provider: Sep 28, 2020 Time Seen by a Provider: 12:13 Sepsis Event Evaluation Height, Weight, BMI Height: 5'11.00" Weight: 290lbs. 0.0oz. 131.573801ho; 38.88 BMI Method:Stated Exam Exam Patient acknowledged, consented, and participated in this virtual visit which was conducted using real time audio/video Vital Signs Date Time Temp Pulse Resp B/P (MAP) Pulse Ox O2 Delivery O2 Flow Rate FiO2 09/28/20 11:15 37.6 09/28/20 09:54 93 Vapotherm 40.00 70 09/28/20 09:19 94 Vapotherm 40.00 70.00 09/28/20 09:00 106 22 143/62 (89) 92 Vapotherm 40.00 80.00 09/28/20 08:44 36.3 09/28/20 08:39 100 Vapotherm 40.00 80.00 09/28/20 08:12 100 Vapotherm 40.00 100.00 09/28/20 08:05 100 NIV Bilevel 50.00 09/28/20 08:00 115 31 115/99 (104) 100 NIV Bilevel 60.00 09/28/20 08:00 96 Vapotherm 40.00 100 09/28/20 08:00 100 NIV Bilevel 60.00 09/28/20 07:00 102 09/28/20 07:00 96 41 136/62 (86) 93 NIV Bilevel 70.00 09/28/20 06:02 NIV Bilevel 70.00 09/28/20 06:00 107 31 158/71 (100) 89 Vapotherm 40.00 100.00 09/28/20 05:59 Vapotherm 40.00 100.00 09/28/20 05:51 Vapotherm 30.00 80.00 09/28/20 05:00 86 38 168/77 (100) 93 NIV Bilevel 70.00 09/28/20 04:00 102 21 110/85 (99) 100 NIV Bilevel 80.00 09/28/20 04:00 36.7 NIV Bilevel 70.00 09/28/20 04:00 96 NIV Bilevel 70 09/28/20 03:00 81 26 149/59 (97) 93 NIV Bilevel 80.00 09/28/20 02:20 82 33 96 80.00 09/28/20 02:14 NIV Bilevel 80.00 09/28/20 02:08 NIV Bilevel 90.00 09/28/20 02:00 78 147/67 (98) 85 NIV Bilevel 80.00 09/28/20 01:00 74 38 141/77 (98) 92 NIV Bilevel 80.00 09/28/20 01:00 74 09/28/20 00:42 NIV Bilevel 80.00 09/28/20 00:00 71 36 127/65 (85) 90 NIV Bilevel 70.00 09/27/20 23:40 93 NIV Bilevel 70 09/27/20 23:40 35.8 NIV Bilevel 70.00 09/27/20 22:00 71 35 134/63 (101) 90 NIV Bilevel 70.00 09/27/20 21:27 88 32 93 70.00 09/27/20 21:04 09/27/20 21:00 85 152/68 (99) 88 NIV Bilevel 70.00 09/27/20 20:00 89 148/65 (92) 93 NIV Bilevel 70.00 09/27/20 19:55 94 NIV Bilevel 70 09/27/20 19:40 36.5 82 26 162/74 (103) 94 NIV Bilevel 70.00 09/27/20 19:29 85 26 92 70.00 09/27/20 19:23 36.7 09/27/20 19:00 86 09/27/20 18:00 93 100 Vapotherm 40.00 90.00 09/27/20 17:00 80 122/74 (90) 92 Vapotherm 40.00 90.00 09/27/20 16:00 36.1 09/27/20 16:00 83 29 145/62 (89) 89 Vapotherm 40.00 90.00 09/27/20 15:00 84 32 156/61 (92) 90 Vapotherm 40.00 90.00 09/27/20 14:14 83 28 99 70.00 09/27/20 14:00 80 34 117/57 (77) 96 Vapotherm 40.00 90.00 09/27/20 13:00 86 134/55 (81) 91 Vapotherm 40.00 90.00 09/27/20 12:58 78 I & O 09/28/20 07:00 Intake Total 3195 ml Output Total 2050 ml Balance 1145 ml Height & Weight Height: 5'11.00" Weight: 290lbs. 0.0oz. 131.160568cf; 38.88 BMI Method:Stated General Appearance: No Apparent Distress, WD/WN, Anxious, Chronically ill HEENT: PERRL/EOMI, Normal ENT Inspection, Pharynx Normal, Moist Mucous Membranes Neck: Full Range of Motion, Normal Inspection, Non Tender Respiratory: No Accessory Muscle Use, No Respiratory Distress, Decreased Breath Sounds Cardiovascular: Regular Rate, Rhythm Capillary Refill: Less Than 3 Seconds Gastrointestinal: normal bowel sounds, non tender, soft Extremity: Normal Capillary Refill, Normal Inspection, Normal Range of Motion, Non Tender, No Calf Tenderness, No Pedal Edema, Pedal Edema Neurologic/Psychiatric: Alert, Oriented x3 Skin: Normal Color, Warm/Dry Lymphatic: No Adenopathy Results Lab Laboratory Tests 09/27/20 03:22 09/28/20 03:55 Assessment/Plan Assessment/Plan (Tele-ICU Physician , Progress Note ) Available chart/ vitals / labs / Images reviewed Video assessment done using teleICU camera, rest of exam as per RN Discussed with RN Events overnight : Afebrile hemodynamically stable, no pressors, I/O = even Drips: As per RN exam : Consultants: Hospital course: 09/25-Transferred to ICU due to worsening CXR and oxygenation 09/26 BiPAP 16/10 70%. / vapotherm 100% 09/28 - 70 % vapotherm ACUTE RESP FAILURE - Covid , PNA - BiPAP 16/10 70%. COVID-19 pneumonia in vaccinated individual on chemotherapy for leukemia - decardon Iv to cont - CCP- immunocompromised - US LE neg on 09/23 - heparin was on hold with low PLT - not candidate for actemra with new bact infection Superimposed bacterial PNA, RLL -re cultured -abx changed to IV meropenem Thrombocytopenia - will check DIC panel -? due to meropenem - follow HYperkalemia - not on any meds known to increase K , not receiving supplemants s- follow closely DM II - hypoglycemia today - received 60 of levemir 9 am , NPO today on BIPAP - ISS , hold long acting insulin for now CLL, on chemo Lines : periph , port not acseeese (Central Line Necessity Reviewed) Sinclair: + OG: Nutrition: Analgesia: Anxiety/ delirium VTE Prophylaxis: lovenox proph Stress Ulcer Prophylaxis: Glycemic Control: Plans in collaboration with bedside consultants and IM MDs. Discussed with RN to reach out if any questions or concerns A total of 37 minutes of critical care time was devoted to this patient today, required to treat and/or prevent further deterioration of critical care condition ( as above ) . FREDDIE FIGUEREDO MD Sep 28, 2020 12:13
[2020-09-28] MEDS: ENOXAPARIN 40 MG/0.4 ML (LOVENOX) SYR SC SCH (12:47)
[2020-09-28] MEDS: 1/2 NS IV SOLUTION 1,000 ML IV SCH (12:47)
[2020-09-28] MEDS: polyethylene glycoL POWDER 17 GM (MIRALAX) PACK PO SCH (20:06)
[2020-09-29] VITALS (27 sets, daily range): BP systolic 100–193; BP diastolic 45–124
[2020-09-29] MEDS: RT-ALBUTEROL INHALER HFA (VENTOLIN HFA) 18 GM IH SCH ×4 (02:33→20:16)
[2020-09-29] MEDS: MEROPENEM 1,000 MG in WATER (STERILE) FOR INJECTION 20 ML IV SCH ×3 (05:26→21:10)
[2020-09-29] MEDS: inSUlin ASPART (NovoLOG) 1 UNIT/0.01 ML (CHARGE PER UNIT) SC SCH ×4 (05:27→21:13)
--- NOTE | 2020-09-29 05:30 | Progress Note - Hospitalist ---
Subjective HPI/CC On Admission Date Seen by Provider: Sep 29, 2020 Time Seen by Provider: 10:00 CC: Covid-19 with SOB HPI: This is a 70yoWM clinic pt of Dr. Samuel who has a hx of CLL in addition to chronic kidney disease who presents to the ER with fever and SOB. He received the Covid vaccine in May. He was found to have Covid-19 and B/L infiltrates. Procalcitonin of 0.2 prompting the addition of Cefepime and Azithromycin. He does not use oxygen at home and currently feels much better. He did have chemotherapy on July 13 and there is a higher risk for decompensation for individuals who are on chemotherapy. Subjective/Events-last exam Pt having difficulty Platelets of 65,000 Hgb 8.6 D-dimer 4.8 Lovenox decision will be made by EICU He is on BiPAP now, maxed on Vapotherm Will attempt update family today Review of Systems General: Fatigue, Malaise Pulmonary: Dyspnea Objective Exam Vital Signs Vital Signs Date Time Temp Pulse Resp B/P (MAP) Pulse Ox O2 Delivery O2 Flow Rate FiO2 09/29/20 20:16 108 50 95 80.00 09/29/20 19:20 37.5 NIV Bilevel 09/29/20 19:20 55 Capillary Refill : Less Than 3 Seconds General Appearance: No Apparent Distress, WD/WN, Chronically ill Respiratory: Accessory Muscle Use, Decreased Breath Sounds Cardiovascular: Regular Rate, Rhythm Neurologic/Psychiatric: Alert, Oriented x3, No Motor/Sensory Deficits, Normal Mood/Affect Results/Procedures Lab Laboratory Tests 09/29/20 06:13 Patient resulted labs reviewed. Assessment/Plan Assessment and Plan Assess & Plan/Chief Complaint Assessment: COVID-19 pneumonia in vaccinated individual on chemotherapy for leukemia Acute on chronic kidney disease Mild dehydration Bacterial pneumonia Diabetes Hypertension Hyperlipidemia CAD Plan: COVID-19 protocol Monitor closely Pulmonology consultation 09/23/2020: Close observation Moved to fourth floor Appreciate pulmonary consultation Reviewed ABG first 1 was venous sample Continue antibiotics and steroids 09/24/2020: Supportive care BiPAP Vapotherm Aggressive treatment May ultimately require ICU transfer 09/25/2020: Moved to ICU Very poor prognosis DO NOT INTUBATE DO NOT RESUSCITATE 09/26/2020: Maintain on BiPAP in ICU Monitor closely 09/27/2020: Supportive care Maintain on Vapotherm 09/28/2020: Supportive care Monitor closely Vapotherm ICU 09/29/2020: Rest of ICU care BiPAP DO NOT INTUBATE Critical Care Critically Ill Patient Diagnosis/Problems Diagnosis/Problems (1) COVID-19 Status: Acute (2) Hypoxia Status: Acute (3) 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
[2020-09-29 06:48] LABS: BASOPHILS % (AUTO) 0 % (0-10); MEAN CORPUSCULAR HEMOGLOBIN 31 pg (25-34); MEAN PLATELET VOLUME 11.5 fL (9.0-12.2); PLATELET COUNT 65 10^3/uL (130-400)
[2020-09-29 06:50] LABS: EOSINOPHILS % (AUTO) 0 % (0-10); HEMATOCRIT 27 % (40-54); HEMOGLOBIN 8.6 g/dL (13.3-17.7); LYMPHOCYTES # (AUTO) 5.3 10^3/uL (1.0-4.0); LYMPHOCYTES % (AUTO) 56 % (12-44); MEAN CORPUSCULAR HGB CONC 32 g/dL (32-36); MEAN CORPUSCULAR VOLUME 99 fL (80-99); MONOCYTES # (AUTO) 0.1 10^3/uL (0.0-1.0); MONOCYTES % (AUTO) 1 % (0-12); NEUTROPHILS # (AUTO) 3.9 10^3/uL (1.8-7.8); NEUTROPHILS % (AUTO) 42 % (42-75); WHITE BLOOD COUNT 9.3 10^3/uL (4.3-11.0)
[2020-09-29 07:01] LABS: ALBUMIN 3.2 GM/DL (3.2-4.5); POTASSIUM 5.2 MMOL/L (3.6-5.0)
[2020-09-29 07:02] LABS: CALCIUM 8.3 MG/DL (8.5-10.1)
[2020-09-29 07:04] LABS: TOTAL PROTEIN 5.9 GM/DL (6.4-8.2)
[2020-09-29 07:05] LABS: BILIRUBIN,TOTAL 1.2 MG/DL (0.1-1.0)
[2020-09-29 07:07] LABS: CREATININE SERUM 0.8 MG/DL (0.60-1.30); PHOSPHORUS 1.8 MG/DL (2.3-4.7)
[2020-09-29 07:08] LABS: FIBRIN DEGRADATION PRODUCTS 4.81 UG/ML (0.00-0.49); INR 1.2 (0.8-1.4); PROTHROMBIN TIME PATIENT 15.4 SEC (12.2-14.7)
[2020-09-29 07:10] LABS: MAGNESIUM 2.4 MG/DL (1.6-2.4)
[2020-09-29 07:23] LABS: SMEAR SCAN COMMENT YES
--- NOTE | 2020-09-29 07:28 | Diagnostic Imaging Report ---
EXAMINATION: Portable erect AP chest 525 hours. INDICATION: Hypoxia. FINDINGS: The heart size is stable when compared to the prior exam of 09/25/2020. The bilateral alveolar/interstitial pulmonary infiltrates seen previously are again evident and not significantly changed. If anything, there is somewhat greater involvement of the left mid lung and right upper lobe by pneumonia/atelectasis. The mediastinum is not widened. The osseous structures are intact. The right-sided PICC line seen previously is unchanged in position. IMPRESSION: The appearance of the chest has worsened somewhat since the prior exam as there does seem to be slightly greater involvement of the right upper lobe and left midlung by pneumonia/atelectasis. A follow-up study would be recommended for continued evaluation. Dictated by: Dictated on workstation # [id number]
[2020-09-29] MEDS: 1/2 NS IV SOLUTION 1,000 ML IV SCH (08:12)
[2020-09-29] MEDS: PANTOPRAZOLE 40 MG (PROTONIX) TAB PO SCH (09:27)
[2020-09-29] MEDS: meTOprolol TARTRATE 50 MG (LOPRESSOR) TAB PO SCH ×2 (09:27→21:10)
[2020-09-29] MEDS: ACYCLOVIR 400 MG TABLET (ZOVIRAX) PO SCH ×2 (09:27→21:10)
[2020-09-29] MEDS: ASPIRIN 81 MG CHEW (CHILDREN'S ASA) PO SCH (09:27)
[2020-09-29] MEDS: SENNA W/DOCUSATE (SENOKOT S) TABLET PO SCH ×2 (09:27→21:10)
[2020-09-29] MEDS: amLODIPine 5 MG (NORVASC) TAB PO SCH (09:27)
--- NOTE | 2020-09-29 10:14 | Tele-ICU Progress Note ---
Subjective Date Seen by a Provider: Sep 29, 2020 Time Seen by a Provider: 10:14 Sepsis Event Evaluation Height, Weight, BMI Height: 5'11.00" Weight: 290lbs. 0.0oz. 131.588701mf; 38.88 BMI Method:Stated Exam Exam Patient acknowledged, consented, and participated in this virtual visit which was conducted using real time audio/video Vital Signs Date Time Temp Pulse Resp B/P (MAP) Pulse Ox O2 Delivery O2 Flow Rate FiO2 09/29/20 09:30 37.7 71 89 09/29/20 08:15 NIV Bilevel 65.00 09/29/20 08:03 37.7 09/29/20 07:00 120 09/29/20 06:52 89 Vapotherm 40.00 100 09/29/20 06:16 112 44 154/97 (116) 94 Vapotherm 40.00 100.00 09/29/20 05:35 Vapotherm 40.00 100.00 09/29/20 05:00 105 31 145/99 (114) 98 NIV Bilevel 80.00 09/29/20 04:15 102 19 146/96 (113) 100 NIV Bilevel 80.00 09/29/20 04:14 NIV Bilevel 80.00 09/29/20 03:55 Vapotherm 40.00 100.00 09/29/20 03:49 37.3 NIV Bilevel 80.00 09/29/20 03:45 100 NIV Bilevel 80 09/29/20 03:00 84 33 142/64 (101) 91 NIV Bilevel 70.00 09/29/20 02:34 91 40 97 80.00 09/29/20 02:00 86 41 141/48 (72) 92 NIV Bilevel 70.00 09/29/20 01:00 81 40 142/55 (94) 88 NIV Bilevel 70.00 09/29/20 01:00 81 09/29/20 00:00 83 36 132/45 (81) 89 NIV Bilevel 70.00 09/28/20 23:49 NIV Bilevel 70.00 09/28/20 23:45 92 NIV Bilevel 65 09/28/20 23:45 36.7 NIV Bilevel 65.00 09/28/20 23:00 85 38 122/53 (74) NIV Bilevel 65.00 09/28/20 22:00 80 39 153/79 (94) 98 NIV Bilevel 65.00 09/28/20 21:16 NIV Bilevel 65.00 09/28/20 21:04 NIV Bilevel 50.00 09/28/20 21:01 NIV Bilevel 60.00 09/28/20 21:00 99 23 168/69 (117) 99 NIV Bilevel 70.00 09/28/20 20:55 NIV Bilevel 70.00 09/28/20 20:42 93 Vapotherm 40.00 100 09/28/20 20:00 109 35 131/81 (87) 95 Vapotherm 40.00 100.00 09/28/20 19:20 94 Vapotherm 40.00 100 09/28/20 19:15 36.5 100 30 148/70 (96) 93 Vapotherm 40.00 100.00 09/28/20 19:00 99 09/28/20 18:00 94 40 154/67 (96) 99 NIV Bilevel 80.00 09/28/20 17:31 NIV Bilevel 80.00 09/28/20 17:00 94 36 154/55 (88) 95 NIV Bilevel 70.00 09/28/20 16:20 93 NIV Bilevel 70 09/28/20 16:16 NIV Bilevel 70.00 09/28/20 16:00 104 114/89 (97) 100 Vapotherm 40.00 100.00 09/28/20 16:00 36.6 09/28/20 15:00 98 22 109/96 (100) 83 Vapotherm 40.00 100.00 09/28/20 15:00 93 Vapotherm 40.00 100 09/28/20 14:00 Vapotherm 40.00 100.00 09/28/20 14:00 86 16 133/87 (102) 93 Vapotherm 40.00 100.00 09/28/20 13:00 116 26 115/63 (80) 95 Vapotherm 40.00 60.00 09/28/20 13:00 88 09/28/20 12:30 Vapotherm 40.00 60.00 09/28/20 12:00 92 32 172/89 (116) 99 Vapotherm 40.00 70.00 09/28/20 12:00 96 Vapotherm 40.00 70 09/28/20 11:15 37.6 09/28/20 11:00 104 24 119/94 (102) 92 Vapotherm 40.00 70.00 I & O 09/29/20 07:00 Intake Total 2000 ml Output Total 3325 ml Balance -1325 ml Height & Weight Height: 5'11.00" Weight: 290lbs. 0.0oz. 131.225716dp; 38.88 BMI Method:Stated General Appearance: No Apparent Distress, WD/WN, Chronically ill HEENT: PERRL/EOMI, Normal ENT Inspection, Pharynx Normal, Moist Mucous Membranes Neck: Full Range of Motion, Normal Inspection, Non Tender Respiratory: No Accessory Muscle Use, No Respiratory Distress, Decreased Breath Sounds Cardiovascular: Regular Rate, Rhythm Capillary Refill: Less Than 3 Seconds Gastrointestinal: normal bowel sounds, non tender, soft Extremity: Normal Capillary Refill, Normal Inspection, Normal Range of Motion, Non Tender, No Calf Tenderness, No Pedal Edema, Pedal Edema Neurologic/Psychiatric: Alert, Oriented x3, Depressed Affect Skin: Normal Color, Warm/Dry Lymphatic: No Adenopathy Results Lab Laboratory Tests 09/28/20 03:55 09/29/20 06:13 Assessment/Plan Assessment/Plan (Tele-ICU Physician , Progress Note ) Available chart/ vitals / labs / Images reviewed Video assessment done using teleICU camera, rest of exam as per RN Discussed with RN Events overnight : FEBRILE 37 .7 hemodynamically stable, no pressors, I/O = even Drips: As per RN exam : Consultants: Hospital course: 09/25-Transferred to ICU due to worsening CXR and oxygenation 09/26 BiPAP 16/10 70%. / vapotherm 100% 09/28 - 70 % vapotherm ACUTE RESP FAILURE - Covid , PNA - BiPAP 16/10 65% - rr >40 , mv 33L - CXR WITH WORSENIGN rul INFILTRATE - will check ABG - patient is DNI COVID-19 pneumonia in vaccinated individual on chemotherapy for leukemia - decardon Iv to cont - CCP- immunocompromised - US LE neg on 09/23 - heparin was on hold with low PLT - not candidate for actemra with new bact infection Superimposed bacterial PNA, RLL -re cultured -abx changed to IV meropenem Thrombocytopenia - HIPPA pending , heparing on hold , DIC panel with elev fibrinogen - ? reactive phase -? consumption -? due to meropenem - follow - NO ACTIVE BLEEDING HYperkalemia - not on any meds known to increase K , not receiving supplemants s- follow closely - improving DM II - hypoglycemia today - OFF levemir - ISS , hold long acting insulin for now - minimal PO ( not hungry CLL, on chemo Lines : periph , port not acseeese (Central Line Necessity Reviewed) Sinclair: + OG: Nutrition: Analgesia: Anxiety/ delirium VTE Prophylaxis: lovenox proph Stress Ulcer Prophylaxis: Glycemic Control: Plans in collaboration with bedside consultants and IM MDs. Discussed with RN to reach out if any questions or concerns A total of 40 minutes of critical care time was devoted to this patient today, required to treat and/or prevent further deterioration of critical care condition ( as above ) . FREDDIE FIGUEREDO MD Sep 29, 2020 10:14
[2020-09-29] MEDS: ACETAMINOPHEN 325 MG TABLET PO PRN ×2 (10:34→21:15)
[2020-09-29 11:00] LABS: ABG BASE EXCESS -2.3 MMOL/L (-2.5-2.5); ABG OXYGEN SATURATION 93 % (94-100); ABG PCO2 31 MMHG (35-45); ABG PH 7.45 (7.37-7.43); ABG PO2 74 MMHG (79-93); ABG TCO2 21.7 MMOL/L (21.0-31.0)
[2020-09-29 11:01] LABS: INSPIRED O2 65%; PATIENT TEMP 38.2; VENTILATOR NO
[2020-09-29] MEDS: ALPRAZolam 0.5 MG (XANAX) TAB PO PRN ×2 (12:39→21:09)
[2020-09-29] MEDS: guaiFENesin/DM (ROBITUSSIN DM) 10 ML UDC PO PRN (18:05)
[2020-09-29] MEDS: polyethylene glycoL POWDER 17 GM (MIRALAX) PACK PO SCH (21:10)
[2020-09-30] VITALS (24 sets, daily range): BP systolic 105–179; BP diastolic 54–126
[2020-09-30] MEDS: RT-ALBUTEROL INHALER HFA (VENTOLIN HFA) 18 GM IH SCH ×4 (02:36→21:09)
[2020-09-30 04:05] LABS: BASOPHILS % (AUTO) 0 % (0-10); EOSINOPHILS % (AUTO) 0 % (0-10); HEMATOCRIT 29 % (40-54); HEMOGLOBIN 9.4 g/dL (13.3-17.7); LYMPHOCYTES # (AUTO) 2.7 10^3/uL (1.0-4.0); LYMPHOCYTES % (AUTO) 52 % (12-44); MEAN CORPUSCULAR HEMOGLOBIN 31 pg (25-34); MEAN CORPUSCULAR HGB CONC 32 g/dL (32-36); MEAN CORPUSCULAR VOLUME 97 fL (80-99); MEAN PLATELET VOLUME 12.5 fL (9.0-12.2); MONOCYTES # (AUTO) 0.1 10^3/uL (0.0-1.0); MONOCYTES % (AUTO) 2 % (0-12); NEUTROPHILS # (AUTO) 2.4 10^3/uL (1.8-7.8); NEUTROPHILS % (AUTO) 46 % (42-75); PLATELET COUNT 44 10^3/uL (130-400); WHITE BLOOD COUNT 5.3 10^3/uL (4.3-11.0)
[2020-09-30 04:23] LABS: POTASSIUM 5.6 MMOL/L (3.6-5.0)
[2020-09-30 04:29] LABS: CREATININE SERUM 0.82 MG/DL (0.60-1.30); PHOSPHORUS 2.8 MG/DL (2.3-4.7)
[2020-09-30 04:31] LABS: MAGNESIUM 2.6 MG/DL (1.6-2.4)
[2020-09-30] MEDS: 1/2 NS IV SOLUTION 1,000 ML IV SCH ×2 (05:18→23:46)
[2020-09-30] MEDS: MEROPENEM 1,000 MG in WATER (STERILE) FOR INJECTION 20 ML IV SCH (05:18)
--- NOTE | 2020-09-30 05:19 | Progress Note - Hospitalist ---
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 He received the Covid vaccine in May. He was found to have Covid-19 and B/L infiltrates. Procalcitonin of 0.2 prompting the addition of Cefepime and Azithromycin. He does not use oxygen at home and currently feels much better. He did have chemotherapy on July 13 and there is a higher risk for decompensation for individuals who are on chemotherapy. Subjective/Events-last exam Pt having a mixed picture I updated his daughter Desaturations off BiPAP Denies any significant issues Flat Affect continues Platelet count 44,000 Review of Systems General: Fatigue, Malaise Pulmonary: Dyspnea Neurological: Weakness Objective Exam Vital Signs Vital Signs Date Time Temp Pulse Resp B/P (MAP) Pulse Ox O2 Delivery O2 Flow Rate FiO2 09/30/20 21:09 96 Vapotherm 40.00 100 09/30/20 19:40 36.8 09/30/20 19:00 110 09/30/20 18:00 21 129/81 (97) Capillary Refill : Less Than 3 Seconds General Appearance: Anxious, Chronically ill, Mild Distress Respiratory: No Accessory Muscle Use, No Respiratory Distress, Decreased Breath Sounds Cardiovascular: Regular Rate, Rhythm Neurologic/Psychiatric: Alert, Oriented x3, Depressed Affect Results/Procedures Lab Laboratory Tests 09/30/20 03:45 Patient resulted labs reviewed. Assessment/Plan Assessment and Plan Assess & Plan/Chief Complaint Assessment: COVID-19 pneumonia in vaccinated individual on chemotherapy for leukemia Acute on chronic kidney disease Mild dehydration Bacterial pneumonia Diabetes Hypertension Hyperlipidemia CAD Plan: COVID-19 protocol Monitor closely Pulmonology consultation 09/23/2020: Close observation Moved to fourth floor Appreciate pulmonary consultation Reviewed ABG first 1 was venous sample Continue antibiotics and steroids 09/24/2020: Supportive care BiPAP Vapotherm Aggressive treatment May ultimately require ICU transfer 09/25/2020: Moved to ICU Very poor prognosis DO NOT INTUBATE DO NOT RESUSCITATE 09/26/2020: Maintain on BiPAP in ICU Monitor closely 09/27/2020: Supportive care Maintain on Vapotherm 09/28/2020: Supportive care Monitor closely Vapotherm ICU 09/29/2020: Rest of ICU care BiPAP DO NOT INTUBATE 09/30/2020: Supportive care Guarded prognosis Critical Care Critically Ill Patient Diagnosis/Problems Diagnosis/Problems (1) COVID-19 Status: Acute (2) Hypoxia Status: Acute (3) 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
[2020-09-30] MEDS: inSUlin ASPART (NovoLOG) 1 UNIT/0.01 ML (CHARGE PER UNIT) SC SCH ×4 (05:23→22:01)
[2020-09-30 05:30] LABS: TOTAL PROTEIN 5.5 GM/DL (6.4-8.2)
[2020-09-30 05:31] LABS: BILIRUBIN,TOTAL 1.1 MG/DL (0.1-1.0)
[2020-09-30 05:35] LABS: BILIRUBIN,DIRECT 0.6 MG/DL (0.0-0.3); BILIRUBIN,INDIRECT 0.5 MG/DL
[2020-09-30 05:42] LABS: ABG BASE EXCESS -2.6 MMOL/L (-2.5-2.5); ABG OXYGEN SATURATION 97 % (94-100); ABG PCO2 33 MMHG (35-45); ABG PH 7.42 (7.37-7.43); ABG PO2 86 MMHG (79-93); ABG TCO2 22.2 MMOL/L (21.0-31.0)
[2020-09-30 05:46] LABS: ALLENS TEST YES-POS; INSPIRED O2 100%; PATIENT TEMP 37.1; VENTILATOR NO
[2020-09-30] MEDS: PANTOPRAZOLE 40 MG (PROTONIX) TAB PO SCH (08:17)
[2020-09-30] MEDS: ASPIRIN 81 MG CHEW (CHILDREN'S ASA) PO SCH (08:17)
[2020-09-30] MEDS: SENNA W/DOCUSATE (SENOKOT S) TABLET PO SCH ×2 (08:17→19:48)
[2020-09-30] MEDS: amLODIPine 5 MG (NORVASC) TAB PO SCH (08:17)
[2020-09-30] MEDS: meTOprolol TARTRATE 50 MG (LOPRESSOR) TAB PO SCH ×2 (08:18→19:48)
[2020-09-30] MEDS: ALPRAZolam 0.5 MG (XANAX) TAB PO PRN ×2 (08:18→17:29)
[2020-09-30] MEDS: ACYCLOVIR 400 MG TABLET (ZOVIRAX) PO SCH ×2 (08:18→19:48)
--- NOTE | 2020-09-30 08:50 | Diagnostic Imaging Report ---
INDICATION: Hypoxia. COMPARISON: 09/29/2020. FINDINGS: Bilateral 5 lobed alveolar infiltrates remain present. There has been slight overall improvement in aeration of both lungs, especially the left lower lobe. The heart is mildly enlarged. No pneumothorax or pleural effusion. The right Port-A-Cath is unchanged. IMPRESSION: Five lobed infiltrates are again noted although there has been improved aeration in the lung bases, especially on the left. Dictated by: Dictated on workstation # [id number]
--- NOTE | 2020-09-30 11:43 | Tele-ICU Progress Note ---
Subjective Date Seen by a Provider: Sep 30, 2020 Time Seen by a Provider: 11:43 Sepsis Event Evaluation Height, Weight, BMI Height: 5'11.00" Weight: 290lbs. 0.0oz. 131.845877hw; 38.88 BMI Method:Stated Exam Exam Patient acknowledged, consented, and participated in this virtual visit which was conducted using real time audio/video Vital Signs Date Time Temp Pulse Resp B/P (MAP) Pulse Ox O2 Delivery O2 Flow Rate FiO2 09/30/20 11:25 NIV Bilevel 70.00 09/30/20 10:00 112 33 99 NIV Bilevel 50.00 09/30/20 09:00 110 10 155/126 (136) 97 NIV Bilevel 50.00 09/30/20 08:20 NIV Bilevel 50.00 09/30/20 08:15 95 NIV Bilevel 50 09/30/20 08:00 108 12 122/77 (92) 88 NIV Bilevel 40.00 09/30/20 07:45 36.9 09/30/20 07:44 110 41 95 40.00 09/30/20 07:00 108 49 135/90 (105) 100 NIV Bilevel 40.00 09/30/20 06:51 99 09/30/20 06:00 90 35 136/55 (82) 100 NIV Bilevel 100.00 09/30/20 05:35 37.1 09/30/20 05:00 90 34 179/79 (112) 99 NIV Bilevel 100.00 09/30/20 04:00 89 160/66 (99) 94 NIV Bilevel 100.00 09/30/20 03:50 94 NIV Bilevel 80 09/30/20 03:00 83 35 155/70 (93) 96 NIV Bilevel 100.00 09/30/20 02:59 NIV Bilevel 100.00 09/30/20 02:37 89 50 95 80.00 09/30/20 02:00 89 22 150/87 (111) 100 NIV Bilevel 80.00 09/30/20 01:00 71 09/30/20 01:00 71 33 146/63 (90) 92 NIV Bilevel 80.00 09/30/20 00:25 92 NIV Bilevel 80 09/30/20 00:24 NIV Bilevel 80.00 09/30/20 00:00 79 132/64 (91) 91 NIV Bilevel 70.00 09/29/20 23:34 NIV Bilevel 70.00 09/29/20 23:00 90 36 142/74 (97) 100 NIV Bilevel 80.00 09/29/20 22:44 83 103/72 (80) 95 NIV Bilevel 80.00 09/29/20 22:00 95 97 NIV Bilevel 80.00 09/29/20 21:24 NIV Bilevel 80.00 09/29/20 21:19 Vapotherm 40.00 100.00 09/29/20 21:00 108 114/73 (86) 95 NIV Bilevel 55.00 09/29/20 20:45 36.7 09/29/20 20:16 108 50 95 80.00 09/29/20 20:00 106 133/58 (63) 95 NIV Bilevel 55.00 09/29/20 19:20 37.5 NIV Bilevel 55.00 09/29/20 19:20 91 NIV Bilevel 55 09/29/20 19:00 105 09/29/20 19:00 105 39 156/74 (96) 92 NIV Bilevel 55.00 09/29/20 18:16 NIV Bilevel 55.00 09/29/20 18:00 110 52 148/77 (100) 81 Vapotherm 40.00 100.00 09/29/20 17:54 Vapotherm 40.00 100.00 09/29/20 17:00 104 40 133/80 (97) 96 NIV Bilevel 60.00 09/29/20 16:31 NIV Bilevel 60 09/29/20 16:03 NIV Bilevel 60.00 09/29/20 16:00 37.3 09/29/20 16:00 113 158/66 (96) 81 Vapotherm 40.00 100.00 09/29/20 15:00 103 42 100/70 (80) 93 Vapotherm 40.00 100.00 09/29/20 14:55 91 Vapotherm 40.00 100 09/29/20 14:00 97 42 130/57 (81) 85 Vapotherm 40.00 100.00 09/29/20 13:00 89 09/29/20 13:00 89 42 110/47 (68) 94 Vapotherm 40.00 100.00 09/29/20 12:36 37.4 Vapotherm 40.00 100.00 09/29/20 12:02 NIV Bilevel 65 09/29/20 12:00 89 31 193/118 (143) 95 NIV Bilevel 60.00 I & O 09/30/20 07:00 Intake Total 3175 ml Output Total 2310 ml Balance 865 ml Height & Weight Height: 5'11.00" Weight: 290lbs. 0.0oz. 131.198441tr; 38.88 BMI Method:Stated General Appearance: No Apparent Distress, WD/WN, Chronically ill HEENT: PERRL/EOMI, Normal ENT Inspection, Pharynx Normal, Moist Mucous Membranes Neck: Full Range of Motion, Normal Inspection, Non Tender Respiratory: Accessory Muscle Use, Decreased Breath Sounds Cardiovascular: Regular Rate, Rhythm Capillary Refill: Less Than 3 Seconds Gastrointestinal: normal bowel sounds, non tender, soft Extremity: Normal Capillary Refill, Normal Inspection, Normal Range of Motion, Non Tender, No Calf Tenderness, No Pedal Edema, Pedal Edema Neurologic/Psychiatric: Alert, Oriented x3, No Motor/Sensory Deficits, Normal Mood/Affect Skin: Normal Color, Warm/Dry Lymphatic: No Adenopathy Results Lab Laboratory Tests 09/29/20 06:13 09/30/20 03:45 Assessment/Plan Assessment/Plan (Tele-ICU Physician , Progress Note ) Available chart/ vitals / labs / Images reviewed Video assessment done using teleICU camera, rest of exam as per RN Discussed with RN Events overnight : afebrile hemodynamically stable, no pressors, I/O = neg 250 Drips: 1/2 ns As per RN exam : Consultants: Hospital course: 09/25-Transferred to ICU due to worsening CXR and oxygenation 09/26 BiPAP 19/12 70%. / vapotherm 100% 09/28 - 70 % vapotherm 09/30 50% vapotherm , BIPAP overnight ACUTE RESP FAILURE - Covid , PNA - BiPAP overnight 19/12 80% - rr >40 , mv 33L Vapotherm 50 % day time - CXR WITH WORSENInh ON 09/29 - but better on 09/30 r - patient is DNI , tx anxiety with xanax COVID-19 pneumonia in vaccinated individual on chemotherapy for leukemia - decardon Iv to cont - CCP- immunocompromised - US LE neg on 09/23 - heparin was on hold with low PLT - not candidate for actemra with new bact infection Superimposed bacterial PNA, RLL -re cultured -abx changed to IV meropenem 09/25 - TODAY IS THE LAST DAY, follow cxr Thrombocytopenia - HIPPA pending , heparing on hold , DIC panel with elev fibrinogen - ? re active phase -? consumption -? due to meropenem -STOP 09/30 - NO ACTIVE BLEEDING HYperkalemia - not on any meds known to increase K , not receiving supplemants s - provaly is due to mils met acidosis with K shidt from cells - follow with mild hydration ( and off steroids ) DM II - hypoglycemia today - OFF levemir - ISS , hold long acting insulin for now - minimal PO ( not hungry CLL, on chemo Lines : periph , port not acseeese (Central Line Necessity Reviewed) Sinclair: + OG: Nutrition: PO Analgesia: Anxiety/ delirium VTE Prophylaxis: lovenox proph Stress Ulcer Prophylaxis: Glycemic Control: Plans in collaboration with bedside consultants and IM MDs. Discussed with RN to reach out if any questions or concerns A total of 40 minutes of critical care time was devoted to this patient today, required to treat and/or prevent further deterioration of critical care condition ( as above ) . FREDDIE FIGUEREDO MD Sep 30, 2020 11:43
[2020-09-30] MEDS: polyethylene glycoL POWDER 17 GM (MIRALAX) PACK PO SCH (19:48)
[2020-10-01] VITALS (11 sets, daily range): BP systolic 110–165; BP diastolic 58–93
[2020-10-01] MEDS: RT-ALBUTEROL INHALER HFA (VENTOLIN HFA) 18 GM IH SCH ×2 (01:46→14:15)
[2020-10-01 04:01] LABS: BASOPHILS % (AUTO) 0 % (0-10); EOSINOPHILS % (AUTO) 0 % (0-10); HEMATOCRIT 30 % (40-54); MEAN CORPUSCULAR VOLUME 97 fL (80-99); MONOCYTES # (AUTO) 0.2 10^3/uL (0.0-1.0); MONOCYTES % (AUTO) 1 % (0-12)
[2020-10-01 04:03] LABS: HEMOGLOBIN 9.9 g/dL (13.3-17.7); LYMPHOCYTES # (AUTO) 7.2 10^3/uL (1.0-4.0); LYMPHOCYTES % (AUTO) 58 % (12-44); MEAN CORPUSCULAR HEMOGLOBIN 32 pg (25-34); MEAN CORPUSCULAR HGB CONC 33 g/dL (32-36); MEAN PLATELET VOLUME 12.4 fL (9.0-12.2); NEUTROPHILS # (AUTO) 5.1 10^3/uL (1.8-7.8); NEUTROPHILS % (AUTO) 41 % (42-75); WHITE BLOOD COUNT 12.4 10^3/uL (4.3-11.0)
[2020-10-01 04:09] LABS: PLATELET COUNT 31 10^3/uL (130-400)
[2020-10-01 04:16] LABS: POTASSIUM 5.5 MMOL/L (3.6-5.0)
[2020-10-01 04:17] LABS: CALCIUM 8.5 MG/DL (8.5-10.1)
[2020-10-01 04:22] LABS: CREATININE SERUM 1.06 MG/DL (0.60-1.30)
[2020-10-01 04:32] LABS: LYMPHOCYTES % (MANUAL) 63 %; MONOCYTES % (MANUAL) 2 %; NEUTROPHILS % (MANUAL) 35 %; RBC MORPH NORMAL
[2020-10-01] MEDS: inSUlin ASPART (NovoLOG) 1 UNIT/0.01 ML (CHARGE PER UNIT) SC SCH ×3 (05:15→17:02)
--- NOTE | 2020-10-01 05:33 | Progress Note - Hospitalist ---
Subjective HPI/CC On Admission Date Seen by Provider: Oct 01, 2020 Time Seen by Provider: 11:00 CC: Covid-19 with SOB HPI: This is a 70yoWM clinic pt of Dr. Samuel who has a hx of CLL in addition to chronic kidney disease who presents to the ER with fever and SOB. He received the Covid vaccine in May. He was found to have Covid-19 and B/L infiltrates. Procalcitonin of 0.2 prompting the addition of Cefepime and Azithromycin. He does not use oxygen at home and currently feels much better. He did have chemotherapy on July 13 and there is a higher risk for decompensation for individuals who are on chemotherapy. Subjective/Events-last exam Pt really had a rough time Pulled his BiPAP mask off at 4:30 this morning and desatted to 77% and refused to put it back on I ordered comfort care protocol and his daughter was able to come in in a situation like that but then he changed his mind and was placed back on BiPAP machine and Vapotherm is only currently satting 86% Pt appears to be very rough and miserable Platelet count down to 33,000 Poor prognosis Review of Systems General: Fatigue, Malaise Pulmonary: Dyspnea Objective Exam Vital Signs Vital Signs Date Time Temp Pulse Resp B/P (MAP) Pulse Ox O2 Delivery O2 Flow Rate FiO2 10/01/20 18:35 101 45 92 40.00 100.00 10/01/20 16:30 NIV Bilevel 100 10/01/20 16:20 36.5 10/01/20 11:00 127/64 (85) Capillary Refill : Less Than 3 Seconds General Appearance: Chronically ill, Mild Distress Respiratory: Decreased Breath Sounds Cardiovascular: Regular Rate, Rhythm Neurologic/Psychiatric: Alert, Depressed Affect Results/Procedures Lab Laboratory Tests 10/01/20 03:45 Patient resulted labs reviewed. Assessment/Plan Assessment and Plan Assess & Plan/Chief Complaint Assessment: COVID-19 pneumonia in vaccinated individual on chemotherapy for leukemia Acute on chronic kidney disease Mild dehydration Bacterial pneumonia Diabetes Hypertension Hyperlipidemia CAD Plan: COVID-19 protocol Monitor closely Pulmonology consultation 09/23/2020: Close observation Moved to fourth floor Appreciate pulmonary consultation Reviewed ABG first 1 was venous sample Continue antibiotics and steroids 09/24/2020: Supportive care BiPAP Vapotherm Aggressive treatment May ultimately require ICU transfer 09/25/2020: Moved to ICU Very poor prognosis DO NOT INTUBATE DO NOT RESUSCITATE 09/26/2020: Maintain on BiPAP in ICU Monitor closely 09/27/2020: Supportive care Maintain on Vapotherm 09/28/2020: Supportive care Monitor closely Vapotherm ICU 09/29/2020: Rest of ICU care BiPAP DO NOT INTUBATE 09/30/2020: Supportive care Guarded prognosis 10/01/2020: Comfort care protocol Critical Care Critically Ill Patient Diagnosis/Problems Diagnosis/Problems (1) COVID-19 Status: Acute (2) Hypoxia Status: Acute (3) 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
[2020-10-01] MEDS ORDERED: RT-ALBUTEROL/IPRATROPIUM 3 ML (DUONEB) VIAL INH PRN (05:45)
[2020-10-01] MEDS ORDERED: ACETAMINOPHEN 650 MG SUPP (TYLENOL) PR PRN (05:45)
[2020-10-01] MEDS ORDERED: ARTIFICAL TEARS 0.4 ML UNIT DOSE (REFRESH PLUS) OU PRN (05:45)
[2020-10-01] MEDS ORDERED: ONDANSETRON 4 MG/2 ML (SDV) Z0FRAN IVP PRN (05:45)
[2020-10-01] MEDS ORDERED: SALIVA STIMULANT MOUTH SPRAY (BIOTENE) 1.5 OZ MM PRN (05:45)
[2020-10-01] MEDS ORDERED: BISACODYL 10 MG SUPP (DULCOLAX) PR PRN (05:45)
[2020-10-01] MEDS ORDERED: GLYCOPYRROLATE 0.2 MG/ML (ROBINUL) 2 ML VIAL IV PRN (05:45)
[2020-10-01] MEDS: ACYCLOVIR 400 MG TABLET (ZOVIRAX) PO SCH (08:00)
[2020-10-01] MEDS: PANTOPRAZOLE 40 MG (PROTONIX) TAB PO SCH (08:00)
[2020-10-01] MEDS: ASPIRIN 81 MG CHEW (CHILDREN'S ASA) PO SCH (08:00)
[2020-10-01] MEDS: amLODIPine 5 MG (NORVASC) TAB PO SCH (08:00)
[2020-10-01] MEDS: SENNA W/DOCUSATE (SENOKOT S) TABLET PO SCH (08:00)
[2020-10-01] MEDS: ALPRAZolam 0.5 MG (XANAX) TAB PO PRN (08:00)
[2020-10-01] MEDS: meTOprolol TARTRATE 50 MG (LOPRESSOR) TAB PO SCH (08:00)
[2020-10-01] MEDS: guaiFENesin/DM (ROBITUSSIN DM) 10 ML UDC PO PRN ×2 (08:17→13:46)
--- NOTE | 2020-10-01 09:05 | Tele-ICU Progress Note ---
Subjective Date Seen by a Provider: Oct 01, 2020 Time Seen by a Provider: 09:05 Sepsis Event Evaluation Height, Weight, BMI Height: 5'11.00" Weight: 290lbs. 0.0oz. 131.871082di; 38.88 BMI Method:Stated Exam Exam Patient acknowledged, consented, and participated in this virtual visit which was conducted using real time audio/video Vital Signs Date Time Temp Pulse Resp B/P (MAP) Pulse Ox O2 Delivery O2 Flow Rate FiO2 10/01/20 08:28 NIV Bilevel 80.00 10/01/20 08:00 126 84 NIV Bilevel 100.00 10/01/20 07:53 37.1 10/01/20 07:45 Vapotherm 40.00 100.00 10/01/20 07:00 112 10/01/20 07:00 112 148/72 (97) 96 NIV Bilevel 100.00 10/01/20 06:41 92 NIV Bilevel 100.00 10/01/20 06:15 68 Vapotherm 40.00 100.00 10/01/20 06:00 108 165/73 (103) 67 Vapotherm 40.00 100.00 10/01/20 05:00 95 20 110/93 (99) 96 Vapotherm 40.00 100.00 10/01/20 04:00 92 22 121/58 (79) 94 Vapotherm 40.00 100.00 10/01/20 04:00 91 Vapotherm 40.00 100 10/01/20 03:47 36.7 89 Vapotherm 40.00 100.00 10/01/20 03:00 89 31 126/81 (96) 100 NIV Bilevel 100.00 10/01/20 02:00 93 22 139/74 (95) 89 NIV Bilevel 100.00 10/01/20 01:48 94 Vapotherm 40.00 100 10/01/20 01:00 84 10/01/20 01:00 84 22 128/64 (85) 87 NIV Bilevel 100.00 10/01/20 00:00 89 NIV Bilevel 100 10/01/20 00:00 92 33 132/61 (84) 91 NIV Bilevel 100.00 09/30/20 23:45 85 NIV Bilevel 100.00 09/30/20 23:37 36.2 09/30/20 23:00 108 25 119/74 (89) 90 Vapotherm 40.00 100.00 09/30/20 22:00 103 25 114/100 (105) 94 Vapotherm 40.00 100.00 09/30/20 21:09 96 Vapotherm 40.00 100 09/30/20 21:00 108 20 105/74 (84) 93 Vapotherm 40.00 100.00 09/30/20 20:00 94 Vapotherm 40.00 100 09/30/20 20:00 105 17 140/79 (99) 94 Vapotherm 40.00 100.00 09/30/20 19:40 36.8 09/30/20 19:00 111 17 92 Vapotherm 40.00 100.00 09/30/20 19:00 110 09/30/20 18:00 111 21 129/81 (97) 98 NIV Bilevel 80.00 09/30/20 17:32 NIV Bilevel 80.00 09/30/20 17:00 110 32 124/69 (87) 94 NIV Bilevel 90.00 09/30/20 16:30 36.2 09/30/20 16:00 97 NIV Bilevel 100 09/30/20 16:00 105 38 122/74 (90) 100 NIV Bilevel 90.00 09/30/20 15:00 89 27 127/54 (78) 89 NIV Bilevel 90.00 09/30/20 14:20 88 Vapotherm 40.00 100 09/30/20 14:20 NIV Bilevel 90.00 09/30/20 14:00 103 16 137/75 (95) 89 Vapotherm 40.00 100.00 09/30/20 13:15 Vapotherm 40.00 100.00 09/30/20 13:00 88 35 135/85 (102) 94 NIV Bilevel 80.00 09/30/20 12:39 90 09/30/20 12:00 37.6 09/30/20 12:00 89 13 125/63 (83) 95 NIV Bilevel 80.00 09/30/20 12:00 93 NIV Bilevel 70 09/30/20 11:43 93 NIV Bilevel 80.00 09/30/20 11:25 NIV Bilevel 70.00 09/30/20 11:00 101 38 145/96 (112) 100 NIV Bilevel 50.00 09/30/20 10:00 112 33 99 NIV Bilevel 50.00 I & O 10/01/20 07:00 Intake Total 995 ml Output Total 765 ml Balance 230 ml Height & Weight Height: 5'11.00" Weight: 290lbs. 0.0oz. 131.035101zm; 38.88 BMI Method:Stated General Appearance: Anxious, Chronically ill, Mild Distress HEENT: PERRL/EOMI, Normal ENT Inspection, Pharynx Normal, Moist Mucous Membranes Neck: Full Range of Motion, Normal Inspection, Non Tender Respiratory: No Accessory Muscle Use, No Respiratory Distress, Decreased Breath Sounds Cardiovascular: Regular Rate, Rhythm Capillary Refill: Less Than 3 Seconds Gastrointestinal: normal bowel sounds, non tender, soft Extremity: Normal Capillary Refill, Normal Inspection, Normal Range of Motion, Non Tender, No Calf Tenderness, No Pedal Edema, Pedal Edema Neurologic/Psychiatric: Alert, Oriented x3, Depressed Affect Skin: Normal Color, Warm/Dry Lymphatic: No Adenopathy Results Lab Laboratory Tests 09/30/20 03:45 10/01/20 03:45 Assessment/Plan Assessment/Plan (Tele-ICU Physician , Progress Note ) Available chart/ vitals / labs / Images reviewed Video assessment done using teleICU camera, rest of exam as per RN Discussed with RN Events overnight : FEBRILE 37 hemodynamically stable, no pressors, I/O = neg 250 Drips: 1/2 ns 50 As per RN exam : Consultants: Hospital course: 09/25-Transferred to ICU due to worsening CXR and oxygenation 09/26 BiPAP 19/12 70%. / vapotherm 100% 09/28 - 70 % vapotherm 09/30 50% vapotherm , BIPAP overnight 10/01 - BIPAP. PATIENT REQUESTED COMFORT CARE - FAMILY CONVINCED HIM TO CONTINUE AGRESSIVE CARE ACUTE RESP FAILURE - Covid , PNA - BiPAP overnight 19/12 80% - rr >40 , mv 33L Vapotherm 50 % day time - CXR WITH WORSENInh ON 09/29 - but better on 09/30 - patient is DNI , tx anxiety with xanax COVID-19 pneumonia in vaccinated individual on chemotherapy for leukemia - decardon Iv to cont - CCP- immunocompromised - US LE neg on 09/23 - heparin was on hold with low PLT - not candidate for actemra with new bact infection Superimposed bacterial PNA, RLL -re cultured -abx changed to IV meropenem 09/25 - 10/01- increase WBC - first day off ABX - WILL REPEAT PCT ABD SPUTUM CX - CONSIDER VANCO Thrombocytopenia - HIPPA negative , heparing on hold , DIC panel with elev fibrinogen - ? reactive phase -> will repeat DIC panel -? consumption -? due to meropenem -STOPed 09/30 - NO ACTIVE BLEEDING HYperkalemia - not on any meds known to increase K , not receiving supplemants s - probaly is due to mils met acidosis with K shift from cells - follow with mild hydration ( and off steroids ) DM II - hypoglycemia today - OFF levemir - ISS , hold long acting insulin for now - minimal PO ( not hungry CLL, on chemo Lines : periph , port not acseeese (Central Line Necessity Reviewed) Sinclair: + OG: Nutrition: PO Analgesia: Anxiety/ delirium VTE Prophylaxis: lovenox proph Stress Ulcer Prophylaxis: Glycemic Control: Plans in collaboration with bedside consultants and IM MDs. Discussed with RN to reach out if any questions or concerns A total of 40 minutes of critical care time was devoted to this patient today, required to treat and/or prevent further deterioration of critical care condition ( as above ) . FREDDIE FIGUEREDO MD Oct 01, 2020 09:05
[2020-10-01] MEDS ORDERED: HYDROcodone/APAP 5 MG/325 MG (LORTAB) TAB PO PRN (11:15)
[2020-10-01] MEDS: LORazepam INJ 2 MG/ML (ATIVAN) VIAL IVP PRN ×2 (14:29→17:13)
[2020-10-01] MEDS: morphine INJ 4 MG/ML 1 ML (VIAL/SYRINGE) IV PRN ×4 (15:53→21:30)
[2020-10-01] MEDS ORDERED: LORazepam INJ 2 MG/ML (ATIVAN) VIAL IVP PRN (18:45)
[2020-10-01] MEDS ORDERED: morphine INJ 4 MG/ML 1 ML (VIAL/SYRINGE) IVP PRN (18:45)
[2020-10-01] MEDS: 1/2 NS IV SOLUTION 1,000 ML IV SCH (20:26)
--- NOTE | 2020-10-02 05:53 | Discharge Summary ---
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 He was slow to progress and worsen but ultimately did worsen to the point of Vapotherm and BiPAP maxed out he remained a DO NOT RESUSCITATE throughout the entire course and he ultimately worsened enough to go up to the ICU and he eventually had complete decompensation minimal air exchange the decision was to place him on comfort care which it was changed after family came up during comfort care visitation even though he could not have visitors because of COVID-19 and he decided to go back on the BiPAP for a matter of 6 hours but he ultimately succumbed to COVID-19 pneumonia and placed on comfort care and at 2149 hrs. on 10/01/2020. Labs and Pending Lab Test: Laboratory Tests 10/01/20 10:42: Glucometer 249H 10/01/20 16:03: Glucometer 425*H Microbiology 09/25/20 MRSA Screen - Final, Complete MRSA not isolated 09/25/20 Blood Culture - Final, Complete No growth Home Meds Active Reported Kip [place]-3 Krill 350 mg (Krill/Om-3/Dha/Epa/Phospho/Ast) 1 Each Capsule 1 Each PO DAILY Atorvastatin Calcium 20 Mg Tablet 20 Mg PO DAILY Furosemide 80 Mg Tablet 80 Mg PO DAILY Metoprolol Tartrate 100 Mg Tablet 100 Mg PO BID Potassium Chloride 20 Meq Tablet.er 20 Meq PO DAILY Aspirin 81 Mg Tab.chew 81 Mg PO DAILY Novolog Flexpen (Insulin Aspart) 300 Units/3 Ml Solution 15 Units SQ BID Acyclovir 800 Mg Tablet 800 Mg PO BID Levemir Flextouch (Insulin Detemir) 100 Unit/1 Ml Insuln.pen 60 Unit SQ BID Metformin HCl 1,000 Mg Tablet 1,000 Mg PO BID Lisinopril-Hctz 20-12.5 mg Tab (Lisinopril/Hydrochlorothiazide) 1 Each Tablet 1 Tab PO DAILY Glimepiride 4 Mg Tablet 4 Mg PO BID Assessment/Pt Instructions Discharge Planning: <30 minutes discharge planning Discharge Physical Examination Vital Signs Vital Signs Date Time Temp Pulse Resp B/P (MAP) Pulse Ox O2 Delivery O2 Flow Rate FiO2 10/01/20 18:35 101 45 92 40.00 100.00 10/01/20 16:30 NIV Bilevel 100 10/01/20 16:20 36.5 10/01/20 11:00 127/64 (85) Allergies: Coded Allergies: No Known Drug Allergies (Unverified , 07/22/20) Discharge Summary Date of Admission Sep 22, 2020 at 00:04 Date of Discharge Oct 01, 2020 at 22:00 Admission Diagnosis Assessment: COVID-19 pneumonia in vaccinated individual on chemotherapy for leukemia Acute on chronic kidney disease Mild dehydration Bacterial pneumonia Diabetes Hypertension Hyperlipidemia CAD Plan: COVID-19 protocol Monitor closely Pulmonology consultation Comfort Measures/ End of Life Care: Comfort Measures Time spent on discussion (min): 0 Discharge Diagnosis Assessment: COVID-19 pneumonia in vaccinated individual on chemotherapy for leukemia Acute on chronic kidney disease Mild dehydration Bacterial pneumonia Diabetes Hypertension Hyperlipidemia CAD Plan: COVID-19 protocol Monitor closely Pulmonology consultation 09/23/2020: Close observation Moved to fourth floor Appreciate pulmonary consultation Reviewed ABG first 1 was venous sample Continue antibiotics and steroids 09/24/2020: Supportive care BiPAP Vapotherm Aggressive treatment May ultimately require ICU transfer 09/25/2020: Moved to ICU Very poor prognosis DO NOT INTUBATE DO NOT RESUSCITATE 09/26/2020: Maintain on BiPAP in ICU Monitor closely 09/27/2020: Supportive care Maintain on Vapotherm 09/28/2020: Supportive care Monitor closely Vapotherm ICU 09/29/2020: Rest of ICU care BiPAP DO NOT INTUBATE 09/30/2020: Supportive care Guarded prognosis 10/01/2020: Comfort care protocol (1) COVID-19 Status: Acute (2) Hypoxia Status: Acute (3) 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
== END 2020-10-01 22:00 | disposition expired | DRG 177 ==
LOC: EDUNIT# 20:58 → ER 20:59 → CSD 09-22 00:04 → 4TH 09-23 13:09 → ICU 09-25 15:59
PROVIDERS: ADMIT Internal Medicine; ATTEND Internal Medicine
PROC: 5A09557 Assistance with Respiratory Ventilation, Greater than 96 Consecutive Hours, Continuous Positive Airway Pressure (ICD-10-PCS; principal; 2020-09-25)
PROC: XW13325 Transfusion of Convalescent Plasma (Nonautologous) into Peripheral Vein, Percutaneous Approach, New Technology Group 5 (ICD-10-PCS; 2020-09-27)
DX: U07.1 COVID-19 (principal); J12.82 Pneumonia due to coronavirus disease 2019; J15.9 Unspecified bacterial pneumonia; J96.01 Acute respiratory failure with hypoxia; N17.9 Acute kidney failure, unspecified; C91.10 Chronic lymphocytic leukemia of B-cell type not having achieved remission; E11.65 Type 2 diabetes mellitus with hyperglycemia; Z51.5 Encounter for palliative care; Z66 Do not resuscitate; E11.319 Type 2 diabetes mellitus with unspecified diabetic retinopathy without macular edema; E11.22 Type 2 diabetes mellitus with diabetic chronic kidney disease; I12.9 Hypertensive chronic kidney disease with stage 1 through stage 4 chronic kidney disease, or unspecified chronic kidney disease; N18.9 Chronic kidney disease, unspecified; Z79.4 Long term (current) use of insulin; E66.9 Obesity, unspecified; E86.0 Dehydration; I25.10 Atherosclerotic heart disease of native coronary artery without angina pectoris; D69.6 Thrombocytopenia, unspecified; E78.00 Pure hypercholesterolemia, unspecified; E78.5 Hyperlipidemia, unspecified; E11.649 Type 2 diabetes mellitus with hypoglycemia without coma; E87.5 Hyperkalemia; M19.91 Primary osteoarthritis, unspecified site; Z68.38 Body mass index [BMI] 38.0-38.9, adult; Z79.82 Long term (current) use of aspirin; Z83.3 Family history of diabetes mellitus; Z82.49 Family history of ischemic heart disease and other diseases of the circulatory system
CPT/HCPCS: 36415; 71045; 80048; 80053; 80076; 82805; 82947; 83605; 83735; 83880; 84100; 84145; 85007; 85025; 85027; 85379; 85384; 85610; 85730; 86022; 86141; 86850; 86900; 86901; 87040; 87081; 87636; 93970; 94640; 94660; 94760; 96372; 96374; 96375